=== PATIENT | female | born 1965 | race Caucasian/White ===

== ENCOUNTER 2016-08-05 15:39 | Inpatient (IN) | payer MEDICARE, OTHER ==
[2016-08-05] MEDS ORDERED: ONDANSETRON 4 MG/2 ML VIAL IVP STA (16:17)
[2016-08-05] MEDS ORDERED: SODIUM CHLORIDE 0.9% 1,000 ML IV STA (16:17)
[2016-08-05] MEDS ORDERED: FAMOTIDINE 20 MG/2 ML VIAL IV STA (16:17)
--- NOTE | 2016-08-05 16:23 | ED ---
General Adult HPI - General Chief complaint: Nausea/Vomiting/Diarrhea Stated complaint: Nausea Time Seen by Provider: 08/05/16 15:46 Source: EMS Mode of arrival: EMS Limitations: no limitations - History of Present Illness Initial comments: Patient is a 51-year-old female with history of CVA/TIA, seizure disorder, thyroid disorder, multiple sclerosis on immunosuppressive agents, COPD presenting with nausea, vomiting, diarrhea. Patient states symptoms started on Friday. Patient denies sick contacts, suspicious food, recent travel. Patient states Friday she started B12 injections. Patient states in the last 24 hours she vomited 9 times. She describes the vomit as green/yellow. Patient states she's had 9 episodes of loose stool last 24 hours. Patient does admit to decreased urination. Patient denies fever, chills, chest pain, shortness breath , abdominal pain. - Related Data Home Medications Medication Instructions Recorded Confirmed Cyclobenzaprine [Flexeril] 10 mg PO TID 03/07/14 08/05/16 Propranolol HCl [Inderal LA] 160 mg PO HS 03/07/14 08/05/16 Tamsulosin HCl [Flomax] 0.4 mg PO HS 03/07/14 08/05/16 Topiramate [Topamax] 400 mg PO HS 03/07/14 08/05/16 Aspirin 162 mg PO DAILY 01/09/15 08/05/16 Dimethyl Fumarate [Tecfidera] 240 mg PO BID 04/23/15 08/05/16 Lubiprostone [Amitiza] 8 mcg PO BID 06/10/15 08/05/16 Zolpidem [Ambien] 10 mg PO HS 06/10/15 08/05/16 Albuterol Nebulized [Ventolin 2.5 mg INHALATION RT-QID 04/22/16 08/05/16 Nebulized] Acetaminophen-Codeine 300-30mg 2 tab PO HS 07/02/16 08/05/16 [Tylenol w/codeine #3] Lacosamide [Vimpat] 150 mg PO BID 07/02/16 08/05/16 Levothyroxine Sodium [Synthroid] 100 mcg PO DAILY 07/02/16 08/05/16 Cyanocobalamin [Vitamin B-12 1,000 mcg SQ Q7D 01/23/17 01/23/17 Injection] Oxybutynin Chloride [Ditropan] 5 mg PO BID 08/05/16 08/05/16 oxyCODONE-APAP 10-325MG [Percocet 1.5 - 2 tab PO Q6HR PRN 08/05/16 08/05/16 10-325 mg] Allergies Allergy/AdvReac Type Severity Reaction Status Date / Time guaifenesin [From Entex LA] Allergy Anaphylaxis Verified 08/05/16 16:14 phenylephrine HCl Allergy Anaphylaxis Verified 08/05/16 16:14 [From Entex LA] phenylpropanolamine HCl Allergy Anaphylaxis Verified 08/05/16 16:14 [From Entex LA] Sulfa (Sulfonamide Allergy Anaphylaxis Verified 08/05/16 16:14 Antibiotics) tuberculin, purified protein Allergy Anaphylaxis Verified 08/05/16 16:14 deriva [Tuberculin,Purif.Prot.Deriv.] pseudoephedrine HCl AdvReac Swelling Verified 08/05/16 16:14 [From Mucinex D] Review of Systems ROS Statement: Those systems with pertinent positive or pertinent negative responses have been documented in the HPI. Constitutional: No fever and no chills. HENT: No congestion, no rhinorrhea and no sore throat. Eyes: No discharge and no redness. Respiratory: No cough and no shortness of breath. Cardiovascular: No chest pain and no palpitations. Gastrointestinal: Positive for nausea/vomiting/diarrhea. No abdominal pain. Genitourinary: No dysuria and no hematuria. Musculoskeletal: No back pain and no arthralgias. Skin: No pallor and no rash. Neurological: No dizziness and No headaches. ROS Other: All systems not noted in ROS Statement are negative. Past Medical History Past Medical History: Cancer, COPD, CVA/TIA, Hyperlipidemia, Myocardial Infarction ([place]), Neurologic Disorder, Seizure Disorder, Thyroid Disorder Additional Past Medical History / Comment(s): Multiple Sclerosis - HAS SUPRAPUBIC CATH. IN W/C. 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 LAST SEIZURE 2015. PVD. Migraines. 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 CERVICAL CA 1997, HAD SURG, CHEMO. RT BREAST CA 2003- LUMPECTOMY ONLY Last Myocardial Infarction Date:: 2004 History of Any Multi-Drug Resistant Organisms: MRSA Date of last positivie culture/infection: 06/14/15 MDRO Source:: sputum Past Surgical History: Cholecystectomy, Hysterectomy, Tonsillectomy Additional Past Surgical History / Comment(s): cardiac cath x 2; sinus surgery FOR DEVIATED SEPTUM; Rt breast lumpectomy; Rt knee surgery x 4 ARTHROSCOPIES AND ACL RECONSTRUCTION HAS METAL IN KNEE; LAPAROSCOPY, EXC ADHESIONS. Suprapubic Cath. Past Anesthesia/Blood Transfusion Reactions: No Reported Reaction Additional Past Anesthesia/Blood Transfusion Reaction / Comment(s): CLAUSTROPHOBIA Past Psychological History: No Psychological Hx Reported Smoking Status: Former smoker Past Alcohol Use History: None Reported Additional Past Alcohol Use History / Comment(s): Quit approx 1992, started smoking at age 11. Past Drug Use History: Marijuana Additional Drug Use History / Comment(s): HAS MEDICAL CARD, SELDOM USE. - Past Family History Father Family Medical History: Diabetes Mellitus, Myocardial Infarction ([place]), Osteoarthritis (OA) Additional Family Medical History / Comment(s): OPEN HEART SX Mother Family Medical History: Myocardial Infarction ([place]) Additional Family Medical History / Comment(s): LAST YEAR IN HER SLEEP([place]) General Exam - General Exam Comments Initial Comments: Constitutional: Patient appears well-developed and well-nourished. No distress. Head: Normocephalic and atraumatic. Eyes: Conjunctivae and EOM are normal. Right eye exhibits no discharge. Left eye exhibits no discharge. No scleral icterus. Neck: Normal range of motion. Neck supple. Cardiovascular: Normal rate and regular rhythm. No murmur heard. Pulmonary/Chest: Effort normal and breath sounds normal. No respiratory distress. No wheezes. Abdominal: Soft. No distension. There is no tenderness. There is no rebound and no guarding. Suprapubic catheter placed. Musculoskeletal: Patient is moving bilateral upper extremities weakness of the lower extremities from MS is present. Neurological: Patient alert and oriented to person, place, and time. Skin: Skin is warm and dry. Not diaphoretic. Nursing notes and vitals reviewed. Limitations: no limitations Course Vital Signs 08/05/16 15:43 Temperature 97.5 F L Pulse Rate 89 Respiratory 16 Rate Blood Pressure 102/59 O2 Sat by Pulse 96 Oximetry - Reevaluation(s) Reevaluation #1: 08/05/16 19:30 Patient feeling better no further vomiting but still nauseous. Patient complaining of her chronic back pain requesting her [place] 10 mg. Medical Decision Making - Medical Decision Making Patient's a 51-year-old female with past history of multiple sclerosis on immunosuppressants presenting with 4 days of nausea vomiting diarrhea. Temperature 97.5F orally. Patient is not tachycardic. Blood pressure is 102/ 59. With a map of 73. Laboratory work showed a WBC of 1.4. AST was 917, ALT 601, alk phos 276, UA concerning for infection with nitrites positive, moderate leukocytes, urine WBCs 25. Patient was started on Rocephin and urine culture sent. Patient was given 1 L normal saline, Zofran, Pepcid. Patient was resting comfortably in bed. Course of stay improved. Denies pain. Discussed physical exam and diagnostic tests with patient. Questions answered and patient is agreeable to staying in the hospital. Discussed H&P and pertinent diagnostic tests with admitting physician who agrees with plan and accepts admission of patient. - Lab Data Result diagrams: 08/05/16 16:45 08/05/16 16:45 Lab Results 08/05/16 08/05/16 08/05/16 Range/Units 16:45 16:45 16:45 WBC 1.4 L* (3.8-10.6) k/uL RBC 4.59 (3.80-5.40) m/uL Hgb 13.4 (11.4-16.0) gm/dL Hct 41.2 (34.0-46.0) % MCV 89.7 (80.0-100.0) fL MCH 29.3 (25.0-35.0) pg MCHC 32.6 (31.0-37.0) g/dL RDW 13.5 (11.5-15.5) % Plt Count 144 L (150-450) k/uL Neutrophils % 71 % Lymphocytes % 11 % Monocytes % 10 % Eosinophils % 2 % Basophils % 2 % Neutrophils # 1.0 L (1.3-7.7) k/uL Lymphocytes # 0.2 L (1.0-4.8) k/uL Monocytes # 0.1 (0-1.0) k/uL Eosinophils # 0.0 (0-0.7) k/uL Basophils # 0.0 (0-0.2) k/uL Sodium 142 (137-145) mmol/L Potassium 3.5 (3.5-5.1) mmol/L Chloride 108 H (98-107) mmol/L Carbon Dioxide 22 (22-30) mmol/L Anion Gap 12 mmol/L BUN 9 (7-17) mg/dL Creatinine 0.64 (0.52-1.04) mg/dL Est GFR (MDRD) Af Amer >60 (>60 ml/min/1.73 sqM) Est GFR (MDRD) Non-Af >60 (>60 ml/min/1.73 sqM) Glucose 86 (74-99) mg/dL Calcium 8.6 (8.4-10.2) mg/dL Magnesium 1.6 (1.6-2.3) mg/dL Total Bilirubin 0.5 (0.2-1.3) mg/dL AST 917 H (14-36) U/L ALT 601 H (9-52) U/L Alkaline Phosphatase 276 H (38-126) U/L Total Protein 6.7 (6.3-8.2) g/dL Albumin 3.7 (3.5-5.0) g/dL Lipase 100 (23-300) U/L Urine Color Yellow Urine Appearance Turbid H (Clear) Urine pH 7.5 (5.0-8.0) Ur Specific [place] 1.013 (1.001-1.035) Urine Protein 1+ H (Negative) Urine Glucose (UA) Negative (Negative) Urine Ketones Negative (Negative) Urine Blood Trace H (Negative) Urine Nitrate Positive H (Negative) Urine Bilirubin Negative (Negative) Urine Urobilinogen <2.0 (<2.0) mg/dL Ur Leukocyte Esterase Moderate H (Negative) Urine WBC 25 H (0-5) /hpf Amorphous Sediment Few H (None) /hpf Urine Mucus Many H (None) /hpf Disposition Clinical Impression: Nausea vomiting and diarrhea, Urinary tract infection, History of immunosuppressive therapy Disposition: ADMITTED IP TO THIS [facility] Condition: Good Decision to Admit Reason: Admit from EC
[2016-08-05 17:01] LABS: Basophils % (A) 2 %; CH 29.6; CHCM 33.2; Eosinophils % (A) 2 %; HCT 41.2 % (34.0-46.0); HDW 2.67; HGB 13.4 gm/dL (11.4-16.0); Luc # (Auto) 0.05; Luc % (Auto) 4; Lymphocytes # (A) 0.2 k/uL (1.0-4.8); Lymphocytes % (A) 11 %; MCH 29.3 pg (25.0-35.0); MCHC 32.6 g/dL (31.0-37.0); MCV 89.7 fL (80.0-100.0); Mean Platelet Volume 7.8; Monocytes # (A) 0.1 k/uL (0-1.0); Monocytes % (A) 10 %; Neutrophils % (A) 71 %; RBC 4.59 m/uL (3.80-5.40); RDW 13.5 % (11.5-15.5); WBC (Perox) 1.34
[2016-08-05 17:07] LABS: Amorphous Sediment,Urine Few /hpf; Appearance,Urine Turbid (Clear); Bilirubin,Urine Negative (Negative); Glucose,Urine (UA) Negative (Negative); Ketones,Urine Negative (Negative); Leukocyte Esterase,Urine Moderate (Negative); Mucus,Urine Many /hpf; Nitrite,Urine Positive (Negative); PH, Urine 7.5 (5.0-8.0); Particle Count 139212; Protein,Urine 1+ (Negative); Specific Gravity,Urine 1.013 (1.001-1.035); UA Billing (MACRO vs. MICRO) MICRO; Urobilinogen,Urine <2.0 mg/dL (<2.0); WBC,Urine 25 /hpf (0-5)
[2016-08-05 17:08] LABS: ALT 601 U/L (9-52); Alkaline Phosphatase 276 U/L (38-126); Anion Gap 12 mmol/L; Blood Urea Nitrogen 9 mg/dL (7-17); Calcium 8.6 mg/dL (8.4-10.2); Carbon Dioxide 22 mmol/L (22-30); Chloride 108 mmol/L (98-107); Glucose 86 mg/dL (74-99); Magnesium 1.6 mg/dL (1.6-2.3); Non-African American GFR(MDRD) >60 (>60 ml/min/1.73 sqM); Potassium 3.5 mmol/L (3.5-5.1); Sodium 142 mmol/L (137-145); Total Bilirubin 0.5 mg/dL (0.2-1.3); Total Protein 6.7 g/dL (6.3-8.2)
[2016-08-05 17:13] LABS: WBC 1.4 k/uL (3.8-10.6)
[2016-08-05 17:14] LABS: AST 917 U/L (14-36)
[2016-08-05] MEDS ORDERED: HYDROcodone/APAP 10-325MG 1 EACH TAB PO ONE (19:31)
[2016-08-05] MEDS ORDERED: SODIUM CHLORIDE 0.9% 1,000 ML IV ONE (19:35)
[2016-08-05] MEDS ORDERED: ONDANSETRON 4 MG/2 ML VIAL IVP PRN (19:35)
[2016-08-05] MEDS ORDERED: NALOXONE 0.4 MG/ML 1 ML VIAL IV PRN (19:35)
[2016-08-05 21:44] VITALS: BMI 32.5
[2016-08-05] MEDS: OXYBUTYNIN CHLORIDE 5 MG TAB PO SCH (23:42)
[2016-08-05] MEDS: CYCLOBENZAPRINE 10 MG TAB PO SCH (23:42)
[2016-08-05] MEDS: LACOSAMIDE 150 MG TABLET PO SCH (23:42)
[2016-08-05] MEDS: PROPRANOLOL LA 80 MG CAP.SA.24H PO SCH (23:43)
[2016-08-05] MEDS: TAMSULOSIN 0.4 MG CAP.ER.24H PO SCH (23:43)
[2016-08-05] MEDS: ZOLPIDEM 10 MG TAB PO SCH (23:45)
[2016-08-05] MEDS: HYDROcodone/APAP 10-325MG 1 EACH TAB PO SCH (23:51)
[2016-08-06] MEDS ORDERED: TOPIRAMATE 100 MG TAB PO ONE (00:30)
[2016-08-06] MEDS: PROPRANOLOL LA 80 MG CAP.SA.24H PO SCH ×2 (01:26→21:31)
[2016-08-06] MEDS: LEVOTHYROXINE 100 MCG TAB PO SCH (06:19)
[2016-08-06] MEDS: HYDROcodone/APAP 10-325MG 1 EACH TAB PO SCH ×4 (06:19→23:52)
[2016-08-06] MEDS: ASPIRIN 81 MG CHEW PO SCH (08:01)
[2016-08-06] MEDS: CYCLOBENZAPRINE 10 MG TAB PO SCH ×3 (08:02→21:33)
[2016-08-06] MEDS: OXYBUTYNIN CHLORIDE 5 MG TAB PO SCH ×2 (08:02→21:31)
[2016-08-06] MEDS: LACOSAMIDE 150 MG TABLET PO SCH ×2 (08:02→21:30)
[2016-08-06] MEDS: ALBUTEROL NEBULIZED 2.5 MG/3 ML INHALATION SCH ×4 (08:20→19:49)
[2016-08-06] MEDS ORDERED: NON-FORMULARY DRUG (Dimethyl Fumarate [Tecfidera] 240 MG) PO SCH (09:00)
[2016-08-06 09:35] LABS: Basophils % (A) 2 %; CH 29.8; CHCM 33.2; Eosinophils # (A) 0.1 k/uL (0-0.7); Eosinophils % (A) 5 %; HDW 2.72; HGB 11.9 gm/dL (11.4-16.0); Luc # (Auto) 0.04; Luc % (Auto) 4; Lymphocytes # (A) 0.2 k/uL (1.0-4.8); Lymphocytes % (A) 17 %; MCH 29.1 pg (25.0-35.0); MCHC 32.3 g/dL (31.0-37.0); MCV 90.1 fL (80.0-100.0); Mean Platelet Volume 8.1; Monocytes # (A) 0.1 k/uL (0-1.0); Monocytes % (A) 14 %; Neutrophils # (A) 0.6 k/uL (1.3-7.7); Neutrophils % (A) 59 %; RDW 13.5 % (11.5-15.5); WBC (Perox) 1.16
[2016-08-06 09:49] LABS: ALT 332 U/L (9-52); AST 237 U/L (14-36); Alkaline Phosphatase 195 U/L (38-126); Anion Gap 10 mmol/L; Blood Urea Nitrogen 5 mg/dL (7-17); Calcium 8.2 mg/dL (8.4-10.2); Carbon Dioxide 21 mmol/L (22-30); Chloride 115 mmol/L (98-107); Glucose 99 mg/dL (74-99); Non-African American GFR(MDRD) >60 (>60 ml/min/1.73 sqM); Potassium 3.1 mmol/L (3.5-5.1); Sodium 146 mmol/L (137-145); Total Bilirubin 0.3 mg/dL (0.2-1.3); Total Protein 5.8 g/dL (6.3-8.2)
[2016-08-06] MEDS ORDERED: BUTALB/APAP/CAFF 50-325-40MG TAB PO PRN (10:45)
[2016-08-06] MEDS ORDERED: Potassium Replacement Protocol 1 EACH MISC MISCELLANE PRN (11:04)
[2016-08-06] MEDS ORDERED: Magnesium Replacement Protocol 1 EACH MISC MISCELLANE PRN (11:05)
[2016-08-06] MEDS: SODIUM CHLORIDE 0.9% 1,000 ML IV SCH ×2 (11:56→23:55)
[2016-08-06] MEDS: MAGNESIUM SULFATE-D5W PMX 1 GM in DEXTROSE/WATER 1 100ML.BAG IVPB SCH ×2 (12:28→14:30)
[2016-08-06] MEDS: FAMOTIDINE 20 MG TAB PO SCH (12:28)
[2016-08-06] MEDS: POTASSIUM CHLORIDE ER 20 MEQ TAB.ER PO SCH ×2 (12:28→14:31)
[2016-08-06] MEDS: BUTALB/APAP/CAFF 50-325-40MG TAB PO PRN (12:43)
[2016-08-06] MEDS: Lubiprostone [Amitiza] 8 MCG PO SCH ×2 (14:30→21:30)
--- NOTE | 2016-08-06 14:51 | P.HPIM ---
History of Present Illness H&P Date: 08/06/16 Chief Complaint: Nausea, vomiting, and diarrhea Patient is a 51-year-old female, patient of Dr. Bowers in the outpatient setting, with medical history significant for CVA with left-sided paraplegia, fibromyalgia, hyperlipidemia, coronary artery disease, myocardial infarction in 2004, seizure disorder, hypothyroidism, multiple sclerosis, cervical cancer, right breast cancer, migraines, peripheral vascular disease, pneumonia, urinary tract infections, and chronic indwelling suprapubic catheter for neurogenic bladder. Patient presented to the emergency department for symptoms of nausea, vomiting, and diarrhea that started on Friday. No history of fevers, chills, chest pain, shortness of breath, abdominal pain. No history of hematemesis, melena, or hematochezia. Patient states she was started on vitamin B12 injections last Friday. Admission vitals unremarkable. Admission WBC 1.4, platelet count 144, chloride 108, AST 917, ALT 601, alkaline phosphatase 276. Urinalysis 1+ protein, trace blood, positive nitrate, moderate leukocyte esterase, 25 WBC. Patient was given 1 L of IV fluids and started on IV ceftriaxone. Urine cultures obtained. Upon examination, patient is feeling better. No further vomiting or diarrhea since admission. Patient complains of headache and back pain. Denies chills, fevers, shortness of breath, chest pain, or abdominal pain. Patient is tolerating a clear liquid diet. A.m. labs WBC 1, platelet count 121, sodium 146 , potassium 3.1, chloride 1:15, carbon dioxide 21, AST 237, ALT 332, alkaline phosphatase 195. Urine culture pending. Blood pressure stable. Past Medical History Past Medical History: Cancer, COPD, CVA/TIA, Hyperlipidemia, Myocardial Infarction ([place]), Neurologic Disorder, Seizure Disorder, Thyroid Disorder Additional Past Medical History / Comment(s): Multiple Sclerosis - HAS SUPRAPUBIC CATH. IN W/C. 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 LAST SEIZURE 2015. PVD. Migraines. 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 CERVICAL CA 1997, HAD SURG, CHEMO. RT BREAST CA 2003- LUMPECTOMY ONLY Last Myocardial Infarction Date:: 2004 History of Any Multi-Drug Resistant Organisms: MRSA Date of last positivie culture/infection: 12/02/15 MDRO Source:: sputum Past Surgical History: Cholecystectomy, Hysterectomy, Tonsillectomy Additional Past Surgical History / Comment(s): cardiac cath x 2; sinus surgery FOR DEVIATED SEPTUM; Rt breast lumpectomy; Rt knee surgery x 4 ARTHROSCOPIES AND ACL RECONSTRUCTION HAS METAL IN KNEE; LAPAROSCOPY, EXC ADHESIONS. Suprapubic Cath. Past Anesthesia/Blood Transfusion Reactions: No Reported Reaction Additional Past Anesthesia/Blood Transfusion Reaction / Comment(s): CLAUSTROPHOBIA Past Psychological History: No Psychological Hx Reported Smoking Status: Former smoker Past Alcohol Use History: None Reported Additional Past Alcohol Use History / Comment(s): Quit approx 1992, started smoking at age 11. Past Drug Use History: Marijuana Additional Drug Use History / Comment(s): HAS MEDICAL CARD, Doesn't USE. - Past Family History Father Family Medical History: Diabetes Mellitus, Myocardial Infarction ([place]), Osteoarthritis ([place]) Additional Family Medical History / Comment(s): OPEN HEART SX Mother Family Medical History: Myocardial Infarction ([place]) Additional Family Medical History / Comment(s): LAST YEAR IN HER SLEEP([place]) Medications and Allergies Home Medications Medication Instructions Recorded Confirmed Type Cyclobenzaprine [Flexeril] 10 mg PO TID 03/07/14 08/05/16 History Propranolol HCl [Inderal LA] 160 mg PO HS 03/07/14 08/05/16 History Tamsulosin HCl [Flomax] 0.4 mg PO HS 03/07/14 08/05/16 History Topiramate [Topamax] 400 mg PO HS 03/07/14 08/05/16 History Aspirin 162 mg PO DAILY 01/09/15 08/05/16 History Dimethyl Fumarate [Tecfidera] 240 mg PO BID 04/23/15 08/05/16 History Lubiprostone [Amitiza] 8 mcg PO BID 06/10/15 08/05/16 History Zolpidem [Ambien] 10 mg PO HS 06/10/15 08/05/16 History Albuterol Nebulized [Ventolin 2.5 mg INHALATION RT-QID 04/22/16 08/05/16 History Nebulized] Acetaminophen-Codeine 300-30mg 2 tab PO HS 07/02/16 08/05/16 History [Tylenol w/codeine #3] Lacosamide [Vimpat] 150 mg PO BID 07/02/16 08/05/16 History Levothyroxine Sodium [Synthroid] 100 mcg PO DAILY 07/02/16 08/05/16 History Cyanocobalamin [Vitamin B-12 1,000 mcg SQ DAILY 08/05/16 08/05/16 History Injection] Oxybutynin Chloride [Ditropan] 10 mg PO BID 08/05/16 08/05/16 History oxyCODONE-APAP 10-325MG [Percocet 1.5 - 2 tab PO Q6HR PRN 08/05/16 08/05/16 History 10-325 mg] Allergies Allergy/AdvReac Type Severity Reaction Status Date / Time guaifenesin [From Entex LA] Allergy Anaphylaxis Verified 08/05/16 16:14 phenylephrine HCl Allergy Anaphylaxis Verified 08/05/16 16:14 [From Entex LA] phenylpropanolamine HCl Allergy Anaphylaxis Verified 08/05/16 16:14 [From Entex LA] Sulfa (Sulfonamide Allergy Anaphylaxis Verified 08/05/16 16:14 Antibiotics) tuberculin, purified protein Allergy Anaphylaxis Verified 08/05/16 16:14 deriva [Tuberculin,Purif.Prot.Deriv.] pseudoephedrine HCl AdvReac Swelling Verified 08/05/16 16:14 [From Mucinex D] Physical Exam GENERAL: Pt awake and alert, well-appearing, well-nourished, and in no acute distress. HEAD: Atraumatic, normocephalic. EYES: Pupils equal, round, and reactive to light, extraocular movements intact, sclera anicteric, conjunctiva are normal. ENT: Oropharynx clear without exudates. Moist mucous membranes. NECK:Supple without lymphadenopathy or JVD. LUNGS: Breath sounds clear to auscultation posteriorly. No wheezes, rales, or rhonchi. HEART: Heart S1, S2, no S3 or S4. Regular rate and rhythm. No murmurs, rubs or gallops. ABDOMEN: Soft, nontender, nondistended, normoactive bowel sounds. No guarding, no rebound. No masses or organomegaly appreciated. Suprapubic catheter draining cloudy urine EXTREMITIES: 2+ peripheral pulses. No edema. No calf tenderness. Patient is moving bilateral upper extremities. Paralysis to left lower extremity. Right lower extremity weak. NEUROLOGICAL: Pt oriented x 3. Cranial nerves II through XII grossly intact. Strength and sensation grossly intact. PSYCH: Normal mood, normal affect. SKIN: Warm, dry, intact. Normal turgor. No rashes or lesions. Results CBC & Chem 7: 08/06/16 09:15 08/06/16 09:15 Thrombosis Risk Factor Assmnt - DVT/VTE Prophylaxis DVT/VTE Prophylaxis: Mechanical Prophylaxis ordered - Choose All That Apply Any of the Below Risk Factors Present?: Yes Each Factor Represents 1 point: Age 41-60 years, Medical pt on bed rest, Obesity (BMI >25) Other Risk Factors: Yes Each Risk Factor Represents 2 Points: Patient confined to bed Thrombosis Risk Factor Assessment Total Risk Factor Score: 5 Thrombosis Risk Factor Assessment Level: High Risk Assessment and Plan Plan: Impression and plan: 1. Urinary tract infection in a patient with permanent suprapubic catheter. Continue IV ceftriaxone. Await finalization of urine culture. Continue IV hydration. Continue supportive treatment and pain management. 2. Leukopenia. WBC 1.4. 3. Thrombocytopenia. Platelet count 121 from 144 on admission. 4. Hyperchloremic metabolic acidosis secondary to IV fluids. Will decrease 0.9 normal saline to 75 mL an hour. 5. Gastroenteritis, present on admission, improved. We'll increase diet to full liquids. Check stool for C. diff, obtain stool culture, obtain WBC stool. 6. Hypokalemia. Potassium 3.1. Replace potassium per protocol. 7. Elevated transaminases, improved. AST 237 from 917 yesterday. ALT 332 from 601 yesterday. 8. Elevated alkaline phosphatase, improved. Alkaline phosphatase 195 from 276 yesterday. 9. History of COPD. Continue albuterol nebulized updrafts. 10. Advance multiple sclerosis. 11. Chronic neurogenic bladder secondary to MS. Continue Flomax. Continue oxybutynin. 12. History of fibromyalgia. Continue [place]. 13. History of generalized seizures. Continue Vimpat. 14. History of hypothyroidism. Continue levothyroxin. 15. History of peripheral vascular disease. 16. History of CVA with left-sided hemiplegia. Consult physical therapy. 17. History of hyperlipidemia. 18. History of migraines. Will order Fioricet. Continue Topamax. Continue propanolol. 19. History of urinary tract infection due to chronic Laureano catheter related to Pseudomonas. 20. History of remote nicotine dependence. 21. History of marijuana use. Patient has medical card. 22. GI prophylaxis. Continue Pepcid. 23. DVT prophylaxis. Continue pneumatic compression sleeves to bilateral lower extremities. 24. Repeat CBC and BMP in a.m. The above impression and plan have been discussed and directed by Dr. Delgado. Vaishali TIM acting as scribe for Dr. Delgado.
[2016-08-06] MEDS: TECFIDERA 240 MG PO SCH (21:30)
[2016-08-06] MEDS: TAMSULOSIN 0.4 MG CAP.ER.24H PO SCH (21:31)
[2016-08-06] MEDS: TOPIRAMATE 100 MG TAB PO SCH (21:32)
[2016-08-06] MEDS: ZOLPIDEM 10 MG TAB PO SCH (21:39)
[2016-08-07] MEDS: BUTALB/APAP/CAFF 50-325-40MG TAB PO PRN (03:29)
[2016-08-07] MEDS: HYDROcodone/APAP 10-325MG 1 EACH TAB PO SCH ×4 (06:03→23:44)
[2016-08-07] MEDS: LEVOTHYROXINE 100 MCG TAB PO SCH (06:03)
[2016-08-07] MEDS: ALBUTEROL NEBULIZED 2.5 MG/3 ML INHALATION SCH ×4 (09:10→20:04)
[2016-08-07 09:32] LABS: Basophils % (A) 1 %; CH 29.6; CHCM 32.8; Eosinophils # (A) 0.1 k/uL (0-0.7); Eosinophils % (A) 3 %; HCT 40.7 % (34.0-46.0); HDW 2.74; Luc # (Auto) 0.08; Luc % (Auto) 2; Lymphocytes # (A) 0.3 k/uL (1.0-4.8); Lymphocytes % (A) 7 %; MCH 29.1 pg (25.0-35.0); Mean Platelet Volume 8.7; Monocytes # (A) 0.2 k/uL (0-1.0); Monocytes % (A) 7 %; Neutrophils # (A) 2.9 k/uL (1.3-7.7); Neutrophils % (A) 80 %; RBC 4.47 m/uL (3.80-5.40); RDW 13.5 % (11.5-15.5); WBC 3.6 k/uL (3.8-10.6); WBC (Perox) 3.69
[2016-08-07 09:37] LABS: Anion Gap 13 mmol/L; Blood Urea Nitrogen 5 mg/dL (7-17); Calcium 8.9 mg/dL (8.4-10.2); Carbon Dioxide 19 mmol/L (22-30); Chloride 114 mmol/L (98-107); Glucose 83 mg/dL (74-99); Magnesium 1.8 mg/dL (1.6-2.3); Non-African American GFR(MDRD) >60 (>60 ml/min/1.73 sqM); Sodium 146 mmol/L (137-145)
[2016-08-07] MEDS: OXYBUTYNIN CHLORIDE 5 MG TAB PO SCH ×2 (10:51→21:04)
[2016-08-07] MEDS: CYCLOBENZAPRINE 10 MG TAB PO SCH ×3 (10:52→21:04)
[2016-08-07] MEDS: ASPIRIN 81 MG CHEW PO SCH (10:52)
[2016-08-07] MEDS: TECFIDERA 240 MG PO SCH ×2 (10:53→21:05)
[2016-08-07] MEDS: FAMOTIDINE 20 MG TAB PO SCH (10:53)
[2016-08-07] MEDS: LACOSAMIDE 150 MG TABLET PO SCH ×2 (10:53→21:04)
[2016-08-07] MEDS: SODIUM CHLORIDE 0.9% 1,000 ML IV SCH ×2 (10:54→15:18)
[2016-08-07] MEDS: Lubiprostone [Amitiza] 8 MCG PO SCH ×2 (10:54→21:05)
--- NOTE | 2016-08-07 12:30 | P.PN ---
Subjective Principal diagnosis: Urinary tract infection Patient is a 51-year-old female, patient of Dr. Bowers in the outpatient setting, with medical history significant for CVA with left-sided paraplegia, fibromyalgia, hyperlipidemia, coronary artery disease, myocardial infarction in 2004, seizure disorder, hypothyroidism, multiple sclerosis, cervical cancer, right breast cancer, migraines, peripheral vascular disease, pneumonia, urinary tract infections, and chronic indwelling suprapubic catheter for neurogenic bladder. Patient presented to the emergency department for symptoms of nausea, vomiting, and diarrhea that started on Friday. No history of fevers, chills, chest pain, shortness of breath, abdominal pain. No history of hematemesis, melena, or hematochezia. Patient states she was started on vitamin B12 injections last Friday. Admission vitals unremarkable. Admission WBC 1.4, platelet count 144, chloride 108, AST 917, ALT 601, alkaline phosphatase 276. Urinalysis 1+ protein, trace blood, positive nitrate, moderate leukocyte esterase, 25 WBC. Patient was given 1 L of IV fluids and started on IV ceftriaxone. Urine cultures obtained. 08/07/2016: Patient is evaluated on the medical unit. Patient is complaining of a headache and back pain. Patient states she didn't get any pain medication this morning. Patient complains of cough with yellow-green sputum. Denies chills, fevers, nausea, vomiting, shortness of breath, chest pain, or abdominal pain. Patient reports hunger. No evidence of fevers. WBC increased to 3.6. Sodium 146. Chloride 114. Carbon dioxide 19. Preliminary urine cultures with gram-negative bacilli. Objective - Vital Signs Vital signs: Vital Signs Temp 98.2 F 08/07/16 07:00 Pulse 80 08/07/16 09:19 Resp 19 08/07/16 07:00 BP 117/72 08/07/16 07:00 Pulse Ox 97 08/07/16 07:00 Intake & Output 08/06/16 08/07/16 08/07/16 18:59 06:59 18:59 Intake Total 1680 Output Total 1700 3600 Balance -1700 -1920 Intake: Intake, IV Titration 1200 Amount Sodium Chloride 0.9% 1, 1200 000 ml @ 75 mls/hr IV . [id number] [facility] Rx#:[id number] Oral 480 Output: Urine 1700 3600 Other: Voiding Method Indwelling Catheter Indwelling Catheter # Voids 1 # Bowel Movements 0 - Exam GENERAL: Pt awake and alert, well-appearing, well-nourished, and in no acute distress. HEAD: Atraumatic, normocephalic. EYES: Pupils equal, round, and reactive to light, extraocular movements intact, sclera anicteric, conjunctiva are normal. ENT: Oropharynx clear without exudates. Moist mucous membranes. NECK:Supple without lymphadenopathy or JVD. LUNGS: Breath sounds diminished to auscultation posteriorly. No wheezes, rales , or rhonchi. HEART: Heart S1, S2, no S3 or S4. Regular rate and rhythm. No murmurs, rubs or gallops. ABDOMEN: Soft, nontender, nondistended, normoactive bowel sounds. No guarding, no rebound. No masses or organomegaly appreciated. Suprapubic catheter draining cloudy urine MUSCULOSKELETAL: Vertebral tenderness to lower back. Left CVA tenderness. EXTREMITIES: 2+ peripheral pulses. No edema. No calf tenderness. Patient is moving bilateral upper extremities. Paralysis to left lower extremity. Right lower extremity weak. NEUROLOGICAL: Pt oriented x 3. Cranial nerves II through XII grossly intact. Strength and sensation grossly intact. PSYCH: Normal mood, normal affect. SKIN: Warm, dry, intact. Normal turgor. No rashes or lesions. - Labs CBC & Chem 7: 08/07/16 08:44 08/07/16 08:44 Labs: Abnormal Lab Results - Last 24 Hours (Table) 08/07/16 08/07/16 Range/Units 08:44 08:44 WBC 3.6 L (3.8-10.6) k/uL Lymphocytes # 0.3 L (1.0-4.8) k/uL Sodium 146 H (137-145) mmol/L Chloride 114 H (98-107) mmol/L Carbon Dioxide 19 L (22-30) mmol/L BUN 5 L (7-17) mg/dL Assessment and Plan Plan: Impression and plan: 1. Urinary tract infection in a patient with permanent suprapubic catheter, possible nephritis. Preliminary urine culture with gram-negative bacilli. Continue IV ceftriaxone. Continue IV hydration. Continue supportive treatment and pain management. 2. Leukopenia. WBC improved to 3.6 from 1. 3. Thrombocytopenia, present on admission, resolved. 4. Hyperchloremic metabolic acidosis secondary to IV fluids. Will decrease 0.9 normal saline to 50 mL an hour. 5. Gastroenteritis, present on admission, improved. Increase diet to heart healthy. Check stool for C. diff, obtain stool culture, obtain WBC stool. 6. Hypokalemia, present on admission, resolved. 7. Elevated transaminases, improved. Repeat liver enzymes pending. 8. Elevated alkaline phosphatase, improved. Repeat liver enzymes pending. 9. Productive cough with history of COPD. Obtain chest x-ray. Continue albuterol nebulized updrafts. 10. Advance multiple sclerosis. 11. Chronic neurogenic bladder secondary to MS. Continue Flomax. Continue oxybutynin. 12. History of fibromyalgia. Continue [place]. 13. History of generalized seizures. Continue Vimpat. 14. History of hypothyroidism. Continue levothyroxine. 15. History of peripheral vascular disease. 16. History of CVA with left-sided hemiplegia. Consult physical therapy. 17. History of hyperlipidemia. 18. History of migraines. Continue Fioricet. Continue Topamax. Continue propanolol. 19. History of urinary tract infection due to chronic Laureano catheter related to Pseudomonas. 20. History of remote nicotine dependence. 21. History of marijuana use. Patient has medical card. 22. History of pneumonia with sputum culture positive for MRSA. 22. GI prophylaxis. Continue Pepcid. 23. DVT prophylaxis. Continue pneumatic compression sleeves to bilateral lower extremities. 24. Repeat CBC and CMP in a.m. The above impression and plan have been discussed and directed by Dr. Delgado. Vaishali TIM acting as scribe for Dr. Delgado.
[2016-08-07 13:06] LABS: ALT 250 U/L (9-52); AST 89 U/L (14-36); Alkaline Phosphatase 198 U/L (38-126); Total Bilirubin 0.4 mg/dL (0.2-1.3); Total Protein 6.5 g/dL (6.3-8.2)
--- NOTE | 2016-08-07 13:07 | XR ---
EXAMINATION TYPE: XR chest 2V DATE OF EXAM: 08/07/2016 12:39 PM COMPARISON: Prior chest x-ray 24 April 2016 HISTORY: Cough and urinary tract infection TECHNIQUE: Frontal and lateral views of the chest are obtained. FINDINGS: There is no focal air space opacity, pleural effusion, or pneumothorax seen. The cardiac silhouette size is within normal limits. Port-A-Cath is present with the distal tip at the cavoatria l junction level. Surgical clips are present in the right upper quadrant. There is bronchial wall thi ckening. The osseous structures are intact. IMPRESSION: Correlate for reactive airways disease, bronchitis.
--- NOTE | 2016-08-07 14:33 | CDI ---
In responding to this query, please exercise your independent professional judgment. The [facility] Coding Staff and Clinical Documentation Specialists appreciate your assistance in clarifying documentation, maintaining compliance with coding guidelines, accurately documenting patients condition and capturing severity of illness. The fact that a question is asked does not imply that any particular answer is desired or expected. Communication forms are a method of clarifying documentation and are not made part of the Legal Health Record. Thank you in advance for your clarification. Last Revision, May 2015 Rob Gomez [address] [facility] [place] [address] Documentation Clarification Form Date: 08/07/2016 2:13:00 PM From: Vickiedaja Olvera Admit Date: 08/06/2016 12:26:00 PM Patient Name: Enid Oates Visit Number: [id number] Discharge Date: Dr. Wilfrido Delgado/Vaishali Salamanca [employer]-C A diagnosis of UTI has been documented in the H&P and progress notes . History/Risk factors: Cancer, COPD, CVA, Multiple Sclerosis, Neurologic disorder , Cervical CA Per documentation in the H&P, and progress notes this patient was admitted with an indwelling suprapubic catheter. Clinical Indicators: presenting with nausea, vomiting, diarrhea. She admits to decreased urination. Urinalysis: appearance-Turbid, Leukocyte Esterae Moderate High, Urine nitrate - Positive , WBC 25 Urine culture: Gram neg bacilli, Group D Enterococcus Lab results: WBC 1.4, 1.0, AST 917, ALT 601, Alkaline phosphatase 276, Treatment: Rocepnin IV IV Fluids Flomax PO In your professional opinion, can you please clarify the etiology of the UTI, if known, is it due to? Suprapubic catheter UTI not related to Suprapubic catheter Other condition, please specify Unable to determine If an infective organism is present, please specify cause and effect relationship if applicable. Please document in your progress notes and discharge summary in order to capture severity of illness and risk of mortality. Include clinical findings that support your diagnosis. FYI: Press F11 to launch patient chart Place X here if this finding has no clinical significance, is not applicable or if you are not able to provide any additional documentation. KAREN
[2016-08-07] MEDS: PROPRANOLOL LA 80 MG CAP.SA.24H PO SCH (21:04)
[2016-08-07] MEDS: TOPIRAMATE 100 MG TAB PO SCH (21:04)
[2016-08-07] MEDS: TAMSULOSIN 0.4 MG CAP.ER.24H PO SCH (21:04)
[2016-08-07] MEDS: ZOLPIDEM 10 MG TAB PO SCH (23:44)
[2016-08-08] MEDS: HYDROcodone/APAP 10-325MG 1 EACH TAB PO SCH (06:32)
[2016-08-08] MEDS: LEVOTHYROXINE 100 MCG TAB PO SCH (06:35)
[2016-08-08 07:44] VITALS: BP 96/57; PULSE 60; RESP 20; TEMP 97.6
[2016-08-08] MEDS: ALBUTEROL NEBULIZED 2.5 MG/3 ML INHALATION SCH ×2 (08:00→10:33)
[2016-08-08] MEDS: SODIUM CHLORIDE 0.9% 1,000 ML IV SCH (08:55)
[2016-08-08] MEDS: LACOSAMIDE 150 MG TABLET PO SCH (08:59)
[2016-08-08] MEDS: OXYBUTYNIN CHLORIDE 5 MG TAB PO SCH (08:59)
[2016-08-08] MEDS: ASPIRIN 81 MG CHEW PO SCH (08:59)
[2016-08-08] MEDS: FAMOTIDINE 20 MG TAB PO SCH (08:59)
[2016-08-08] MEDS ORDERED: NITROFURANTOIN MONOHYD/M-CRYST 100 MG CAP PO SCH (09:00)
[2016-08-08] MEDS: CYCLOBENZAPRINE 10 MG TAB PO SCH (09:02)
[2016-08-08] MEDS: Lubiprostone [Amitiza] 8 MCG PO SCH (09:03)
[2016-08-08] MEDS: TECFIDERA 240 MG PO SCH (09:03)
[2016-08-08 09:51] LABS: Basophils % (A) 1 %; CH 29.9; CHCM 33.4; Eosinophils # (A) 0.1 k/uL (0-0.7); Eosinophils % (A) 4 %; HCT 39.1 % (34.0-46.0); HDW 2.74; HGB 12.9 gm/dL (11.4-16.0); Luc # (Auto) 0.08; Luc % (Auto) 3; Lymphocytes # (A) 0.2 k/uL (1.0-4.8); Lymphocytes % (A) 8 %; MCH 29.6 pg (25.0-35.0); MCHC 32.9 g/dL (31.0-37.0); MCV 90.1 fL (80.0-100.0); Mean Platelet Volume 8.5; Monocytes # (A) 0.2 k/uL (0-1.0); Monocytes % (A) 9 %; Neutrophils # (A) 1.8 k/uL (1.3-7.7); Neutrophils % (A) 74 %; RBC 4.34 m/uL (3.80-5.40); RDW 13.5 % (11.5-15.5); WBC 2.4 k/uL (3.8-10.6)
[2016-08-08 10:04] LABS: ALT 169 U/L (9-52); AST 42 U/L (14-36); Alkaline Phosphatase 154 U/L (38-126); Anion Gap 12 mmol/L; Blood Urea Nitrogen 8 mg/dL (7-17); Calcium 8.5 mg/dL (8.4-10.2); Carbon Dioxide 21 mmol/L (22-30); Chloride 113 mmol/L (98-107); Glucose 99 mg/dL (74-99); Non-African American GFR(MDRD) >60 (>60 ml/min/1.73 sqM); Potassium 3.6 mmol/L (3.5-5.1); Sodium 146 mmol/L (137-145); Total Bilirubin 0.4 mg/dL (0.2-1.3); Total Protein 6.5 g/dL (6.3-8.2)
--- NOTE | 2016-08-08 13:36 | P.DS ---
Providers Date of admission: 08/06/16 12:26 Expected date of discharge: 08/08/16 Attending physician: Wilfrido Delgado Primary care physician: Keith [facility] Hospital Course: Patient is a 51-year-old female, patient of Dr. Bowers in the outpatient setting, with medical history significant for CVA with left-sided paraplegia, fibromyalgia, hyperlipidemia, coronary artery disease, myocardial infarction in 2004, seizure disorder, hypothyroidism, multiple sclerosis, cervical cancer, right breast cancer, migraines, peripheral vascular disease, pneumonia, urinary tract infections, and chronic indwelling suprapubic catheter for neurogenic bladder. Patient presented to the emergency department for symptoms of nausea, vomiting, and diarrhea and was found to have evidence of a urinary tract infection with urine cultures positive for Escherichia coli and Enterococcus faecalis. Patient improved with IV antibiotics, IV hydration, supportive treatment and pain management. Patient was deemed stable for discharge to home with by mouth antibiotics in the form of Macrodantin 100 mg by mouth twice a day for 10 days. Discharge diagnoses: 1. Urinary tract infection, present on admission, suspect secondary to permanent suprapubic catheter placement with urine culture positive for Escherichia coli and Enterococcus faecalis. 2. Leukopenia, improved. 3. Thrombocytopenia, present on admission, resolved. 4. Hyperchloremic metabolic acidosis suspect secondary to IV fluids. 5. Gastroenteritis, present on admission, resolved. 6. Hypokalemia, present on admission, resolved. 7. Elevated transaminases, improved. 8. Elevated alkaline phosphatase, improved. 9. Bronchitis with history of COPD. 10. Advance multiple sclerosis. 11. Chronic neurogenic bladder secondary to MS. 12. History of fibromyalgia. 13. History of generalized seizures. 14. History of hypothyroidism. 15. History of peripheral vascular disease. 16. History of CVA with left-sided hemiplegia. 17. History of hyperlipidemia. 18. History of migraines. 19. History of urinary tract infection due to chronic Laureano catheter related to Pseudomonas. 20. History of remote nicotine dependence. 21. History of marijuana use. 22. History of pneumonia with sputum culture positive for MRSA. The above impression and plan have been discussed and directed by Dr. Delgado. Vaishali TIM acting as scribe for Dr. Delgado. Pertinent Studies: Chest x-ray Patient Condition at Discharge: Good Plan - Discharge Summary New Discharge Prescriptions: Nitrofurantoin Monohyd/M-Cryst [Macrobid] 100 mg PO BID #20 cap Discharge Medication List Cyclobenzaprine [Flexeril] 10 mg PO TID 03/07/14 [History] Propranolol HCl [Inderal LA] 160 mg PO HS 03/07/14 [History] Tamsulosin HCl [Flomax] 0.4 mg PO HS 03/07/14 [History] Topiramate [Topamax] 400 mg PO HS 03/07/14 [History] Aspirin 162 mg PO DAILY 01/09/15 [History] Dimethyl Fumarate [Tecfidera] 240 mg PO BID 04/23/15 [History] Lubiprostone [Amitiza] 8 mcg PO BID 06/10/15 [History] Zolpidem [Ambien] 10 mg PO HS 06/10/15 [History] Albuterol Nebulized [Ventolin Nebulized] 2.5 mg INHALATION RT-QID 04/22/16 [ History] Acetaminophen-Codeine 300-30mg [Tylenol w/codeine #3] 2 tab PO HS 07/02/16 [ History] Lacosamide [Vimpat] 150 mg PO BID 07/02/16 [History] Levothyroxine Sodium [Synthroid] 100 mcg PO DAILY 07/02/16 [History] Cyanocobalamin [Vitamin B-12 Injection] 1,000 mcg SQ DAILY 08/05/16 [History] Oxybutynin Chloride [Ditropan] 10 mg PO BID 08/05/16 [History] oxyCODONE-APAP 10-325MG [Percocet 10-325 mg] 1.5 - 2 tab PO Q6HR PRN 08/05/16 [ History] Nitrofurantoin Monohyd/M-Cryst [Macrobid] 100 mg PO BID #20 cap 08/08/16 [Rx] Follow up Appointment(s)/Referral(s): [facility], [NON-STAFF] - Keith Bowers MD [Primary Care Provider] - 1-2 days (pt prefers to make own appointment) Patient Instructions/Handouts: Urinary Tract Infection in Women (DC) Discharge Disposition: HOME WITH HOME HEALTH SERVICES
== END 2016-08-08 12:05 | disposition home health service (06) | DRG 699 ==
LOC: EC 15:39 → 4MS4W 19:36 → OBSVTOIN 08-06 12:26 → 4MS4W 08-07 17:14
PROVIDERS: ADMIT Family Medicine; ATTEND Family Medicine
DX: T83.510A Infection and inflammatory reaction due to cystostomy catheter, initial encounter (principal); E87.2 Acidosis; E87.8 Other disorders of electrolyte and fluid balance, not elsewhere classified; D69.6 Thrombocytopenia, unspecified; I69.354 Hemiplegia and hemiparesis following cerebral infarction affecting left non-dominant side; N31.9 Neuromuscular dysfunction of bladder, unspecified; N39.0 Urinary tract infection, site not specified; G35 Multiple sclerosis; K52.9 Noninfective gastroenteritis and colitis, unspecified; E87.6 Hypokalemia; E03.9 Hypothyroidism, unspecified; E78.5 Hyperlipidemia, unspecified; I25.2 Old myocardial infarction; I25.10 Atherosclerotic heart disease of native coronary artery without angina pectoris; F12.90 Cannabis use, unspecified, uncomplicated; F40.240 Claustrophobia; G40.909 Epilepsy, unspecified, not intractable, without status epilepticus; I73.9 Peripheral vascular disease, unspecified; J44.9 Chronic obstructive pulmonary disease, unspecified; M79.7 Fibromyalgia; G43.909 Migraine, unspecified, not intractable, without status migrainosus; M54.9 Dorsalgia, unspecified; B95.2 Enterococcus as the cause of diseases classified elsewhere; Z86.14 Personal history of Methicillin resistant Staphylococcus aureus infection; Z85.3 Personal history of malignant neoplasm of breast; Z85.41 Personal history of malignant neoplasm of cervix uteri; Z87.440 Personal history of urinary (tract) infections; Z93.59 Other cystostomy status; Z87.01 Personal history of pneumonia (recurrent); Z87.891 Personal history of nicotine dependence; Z79.82 Long term (current) use of aspirin; Z79.899 Other long term (current) drug therapy; Y84.6 Urinary catheterization as the cause of abnormal reaction of the patient, or of later complication, without mention of misadventure at the time of the procedure
CPT/HCPCS: 36415; 71020; 80053; 81001; 83605; 83690; 83735; 85025; 87077; 87086; 87186; 94640; 96361; 96365; 96366; 96367; 96374; 96375; 99285

== ENCOUNTER 2016-10-19 16:34 | Emergency (ER) | payer MEDICARE, OTHER ==
[2016-10-19] MEDS ORDERED: SODIUM CHLORIDE 0.9% 1,000 ML IV STA (16:49)
--- NOTE | 2016-10-19 16:51 | ED ---
Female Urogenital HPI - General Chief complaint: Urogenital Stated complaint: Pain Around Catheter Time Seen by Provider: 10/19/16 16:46 Source: patient, RN notes reviewed Mode of arrival: ambulatory Limitations: no limitations - History of Present Illness Initial comments: 51-year-old female presents to the emergency department with a chief complaint of decreased urine output and pain to catheter site. Patient has suprapubic catheter. She says some decreased urine output. Patient also admits to history of nausea vomiting diarrhea. Patient states that she was concerned due to the continued symptoms so she thought that she should be evaluated. Patient denies any recent fever, chills, shortness of breath, chest pain, back pain, numbness or tingling, dysuria or hematuria, constipation, headaches or visual changes, or any other current symptoms. - Related Data Home Medications Medication Instructions Recorded Confirmed Cyclobenzaprine [Flexeril] 10 mg PO TID 03/07/14 10/19/16 Propranolol HCl [Inderal LA] 160 mg PO HS 03/07/14 10/19/16 Tamsulosin HCl [Flomax] 0.4 mg PO HS 03/07/14 10/19/16 Topiramate [Topamax] 400 mg PO HS 03/07/14 10/19/16 Aspirin 162 mg PO DAILY 01/09/15 10/19/16 Dimethyl Fumarate [Tecfidera] 240 mg PO BID 04/23/15 10/19/16 Lubiprostone [Amitiza] 8 mcg PO BID 06/10/15 10/19/16 Zolpidem [Ambien] 10 mg PO HS 06/10/15 10/19/16 Albuterol Nebulized [Ventolin 2.5 mg INHALATION RT-QID 04/22/16 10/19/16 Nebulized] Acetaminophen-Codeine 300-30mg 2 tab PO HS 07/02/16 10/19/16 [Tylenol w/codeine #3] Lacosamide [Vimpat] 150 mg PO BID 07/02/16 10/19/16 Levothyroxine Sodium [Synthroid] 100 mcg PO DAILY 07/02/16 10/19/16 Cyanocobalamin [Vitamin B-12 1,000 mcg SQ Q30D 08/05/16 10/19/16 Injection] Oxybutynin Chloride [Ditropan] 10 mg PO BID 08/05/16 10/19/16 oxyCODONE-APAP 10-325MG [Percocet 1.5 - 2 tab PO Q6HR PRN 08/05/16 10/19/16 10-325 mg] Temazepam [Restoril] 15 mg PO HS PRN 10/19/16 10/19/16 Previous Rx's Medication Instructions Recorded Nitrofurantoin Macrocrystal 100 mg PO BID 10 Days 10/19/16 [Macrodantin] Allergies Allergy/AdvReac Type Severity Reaction Status Date / Time guaifenesin [From Entex LA] Allergy Anaphylaxis Verified 10/19/16 16:50 phenylephrine HCl Allergy Anaphylaxis Verified 10/19/16 16:50 [From Entex LA] phenylpropanolamine HCl Allergy Anaphylaxis Verified 10/19/16 16:50 [From Entex LA] Sulfa (Sulfonamide Allergy Anaphylaxis Verified 10/19/16 16:50 Antibiotics) tuberculin, purified protein Allergy Anaphylaxis Verified 10/19/16 16:50 deriva [Tuberculin,Purif.Prot.Deriv.] pseudoephedrine HCl AdvReac Swelling Verified 10/19/16 16:50 [From Mucinex D] Review of Systems ROS Statement: Those systems with pertinent positive or pertinent negative responses have been documented in the HPI. ROS Other: All systems not noted in ROS Statement are negative. Past Medical History Past Medical History: Cancer, COPD, CVA/TIA, Hyperlipidemia, Myocardial Infarction (NM), Neurologic Disorder, Seizure Disorder, Thyroid Disorder Additional Past Medical History / Comment(s): Multiple Sclerosis - HAS SUPRAPUBIC CATH. IN W/C. 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 LAST SEIZURE 2015. PVD. Migraines. 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 CERVICAL CA 1997, HAD SURG, CHEMO. RT BREAST CA 2003- LUMPECTOMY ONLY Last Myocardial Infarction Date:: 2004 History of Any Multi-Drug Resistant Organisms: MRSA Date of last positivie culture/infection: 06/14/15 MDRO Source:: sputum Past Surgical History: Cholecystectomy, Hysterectomy, Tonsillectomy Additional Past Surgical History / Comment(s): cardiac cath x 2; sinus surgery FOR DEVIATED SEPTUM; Rt breast lumpectomy; Rt knee surgery x 4 ARTHROSCOPIES AND ACL RECONSTRUCTION HAS METAL IN KNEE; LAPAROSCOPY, EXC ADHESIONS. Suprapubic Cath. Past Anesthesia/Blood Transfusion Reactions: No Reported Reaction Additional Past Anesthesia/Blood Transfusion Reaction / Comment(s): CLAUSTROPHOBIA Past Psychological History: No Psychological Hx Reported Smoking Status: Former smoker Past Alcohol Use History: None Reported Additional Past Alcohol Use History / Comment(s): Quit approx 1992, started smoking at age 11. Past Drug Use History: Marijuana Additional Drug Use History / Comment(s): HAS MEDICAL CARD, Doesn't USE. - Past Family History Father Family Medical History: Diabetes Mellitus, Myocardial Infarction (NM), Osteoarthritis (OA) Additional Family Medical History / Comment(s): OPEN HEART SX Mother Family Medical History: Myocardial Infarction (NM) Additional Family Medical History / Comment(s): LAST YEAR IN HER SLEEP(NM) General Exam - General Exam Comments Initial Comments: General: The patient is awake and alert, in no distress, and does not appear acutely ill. Eye: Pupils are equal, round. Ears, nose, mouth and throat: There are moist mucous membranes. Neck: The neck is supple, there is no tenderness. Cardiovascular: There is a regular rate and rhythm. No murmur, rub or gallop is appreciated. Respiratory: Lungs are clear to auscultation, respirations are non-labored, breath sounds are equal. No wheezes, stridor, rales, or rhonchi. Gastrointestinal: Soft, non-distended, non-tender abdomen without masses or organomegaly noted. There is no rebound or guarding present. No CVA tenderness. Bowel sounds are unremarkable. Back: There is no tenderness to palpation in the midline. There is no obvious deformity. No rashes noted. Musculoskeletal: Normal ROM, no tenderness, There is no pedal edema. There is no calf tenderness or swelling. Sensation intact. Pulses equal bilaterally 2+. Neurological: CN II-XII intact, There are no obvious motor or sensory deficits. Coordination appears grossly intact. Speech is normal. Skin: Skin is warm and dry and no rashes or lesions are noted. Psychiatric: Cooperative, appropriate mood & affect, normal judgment. Limitations: no limitations Course Vital Signs 10/19/16 10/19/16 16:41 18:04 Temperature 97.2 F L Pulse Rate 89 73 Respiratory 16 18 Rate Blood Pressure 125/70 104/54 O2 Sat by Pulse 100 97 Oximetry Medical Decision Making - Medical Decision Making 51-year-old female presents emergency Department with a chief complaint of nausea vomiting diarrhea with pain at the catheter site. At this time patient does appear to be suffering from UTI. Patient's blood work is otherwise negative there is no fever. At this time we discussed was her heart monitor. Time for home she received Rocephin here prior discharge. We discussed follow- up and return parameters. Patient stated that she understood all her questions have been answered. She will be discharged home. - Lab Data Result diagrams: 10/19/16 18:25 10/19/16 18:25 Lab Results 10/19/16 10/19/16 10/19/16 Range/Units 17:25 18:25 18:25 WBC 3.1 L (3.8-10.6) k/uL RBC 4.86 (3.80-5.40) m/uL Hgb 14.7 (11.4-16.0) gm/dL Hct 45.1 (34.0-46.0) % MCV 92.7 (80.0-100.0) fL MCH 30.2 (25.0-35.0) pg MCHC 32.6 (31.0-37.0) g/dL RDW 13.8 (11.5-15.5) % Plt Count 151 (150-450) k/uL Neutrophils % 78 % Lymphocytes % 8 % Monocytes % 8 % Eosinophils % 2 % Basophils % 1 % Neutrophils # 2.4 (1.3-7.7) k/uL Lymphocytes # 0.3 L (1.0-4.8) k/uL Monocytes # 0.2 (0-1.0) k/uL Eosinophils # 0.1 (0-0.7) k/uL Basophils # 0.0 (0-0.2) k/uL Sodium 145 (137-145) mmol/L Potassium 4.9 (3.5-5.1) mmol/L Chloride 115 H (98-107) mmol/L Carbon Dioxide 19 L (22-30) mmol/L Anion Gap 11 mmol/L BUN 8 (7-17) mg/dL Creatinine 0.56 (0.52-1.04) mg/dL Est GFR (MDRD) Af Amer >60 (>60 ml/min/1.73 sqM) Est GFR (MDRD) Non-Af >60 (>60 ml/min/1.73 sqM) Glucose 84 (74-99) mg/dL Calcium 9.5 (8.4-10.2) mg/dL Total Bilirubin 0.6 (0.2-1.3) mg/dL AST 21 (14-36) U/L ALT 20 (9-52) U/L Alkaline Phosphatase 81 (38-126) U/L Total Protein 7.4 (6.3-8.2) g/dL Albumin 4.1 (3.5-5.0) g/dL Urine Color Yellow Urine Appearance Turbid H (Clear) Urine pH 7.5 (5.0-8.0) Ur Specific [place] 1.012 (1.001-1.035) Urine Protein Negative (Negative) Urine Glucose (UA) Negative (Negative) Urine Ketones Negative (Negative) Urine Blood Negative (Negative) Urine Nitrite Positive H (Negative) Urine Bilirubin Negative (Negative) Urine Urobilinogen <2.0 (<2.0) mg/dL Ur Leukocyte Esterase Large H (Negative) Urine WBC 4 (0-5) /hpf Amorphous Sediment Rare H (None) /hpf Urine Bacteria Occasional H (None) /hpf - Radiology Data Radiology results: report reviewed, image reviewed Disposition Clinical Impression: UTI (urinary tract infection) Disposition: HOME SELF-CARE Condition: Stable Instructions: Urinary Tract Infection in Women (ED) Additional Instructions: Please use medication as discussed. Please follow up with family doctor if symptoms have not improved over the next two days. Please return to the emergency room if your symptoms increase or worsen or for any other concerns. Prescriptions: Nitrofurantoin Macrocrystal [Macrodantin] 100 mg PO BID 10 Days Referrals: Wilfrido Delgado Jr, [Primary Care Provider] - 1-2 days Time of Disposition: 19:14
[2016-10-19 17:53] LABS: Amorphous Sediment,Urine Rare /hpf; Appearance,Urine Turbid (Clear); Bacteria,Urine Occasional /hpf; Bilirubin,Urine Negative (Negative); Glucose,Urine (UA) Negative (Negative); Ketones,Urine Negative (Negative); Leukocyte Esterase,Urine Large (Negative); Nitrite,Urine Positive (Negative); PH, Urine 7.5 (5.0-8.0); Particle Count 67962; Protein,Urine Negative (Negative); Specific Gravity,Urine 1.012 (1.001-1.035); UA Billing (MACRO vs. MICRO) MICRO; Urobilinogen,Urine <2.0 mg/dL (<2.0); WBC,Urine 4 /hpf (0-5)
[2016-10-19 18:06] VITALS: RESP 18
[2016-10-19 18:51] LABS: Basophils % (A) 1 %; CH 29.8; CHCM 32.3; Eosinophils # (A) 0.1 k/uL (0-0.7); Eosinophils % (A) 2 %; HCT 45.1 % (34.0-46.0); HDW 2.62; HGB 14.7 gm/dL (11.4-16.0); Luc % (Auto) 3; Lymphocytes # (A) 0.3 k/uL (1.0-4.8); Lymphocytes % (A) 8 %; MCH 30.2 pg (25.0-35.0); MCHC 32.6 g/dL (31.0-37.0); MCV 92.7 fL (80.0-100.0); Mean Platelet Volume 7.9; Monocytes # (A) 0.2 k/uL (0-1.0); Monocytes % (A) 8 %; Neutrophils # (A) 2.4 k/uL (1.3-7.7); Neutrophils % (A) 78 %; RBC 4.86 m/uL (3.80-5.40); RDW 13.8 % (11.5-15.5); WBC 3.1 k/uL (3.8-10.6); WBC (Perox) 3.13
[2016-10-19] MEDS ORDERED: cefTRIAXone 1,000 MG VIAL IM STA (18:58)
--- NOTE | 2016-10-19 19:01 | XR ---
EXAMINATION TYPE: XR abdomen 2V DATE OF EXAM: 10/19/2016 6:51 PM CLINICAL DATA: 51-year-old female with pain around urinary catheter. COMPARISON: 01/24/2016 FINDINGS: Lung bases are clear. Cholecystectomy clips. No evidence for free intraperitoneal air. No dilated small bowel or air-fluid levels. Scattered air and stool seen throughout the colon extendi ng distally into the rectum. Moderate stool in the right hemicolon. Query suprapubic catheter. Phleboliths within the right hemipelvis are unchanged. IMPRESSION: 1. Query suprapubic catheter. 2. Moderate stool in the right hemicolon.No evidence of bowel obstruction or free intraperitoneal air .
[2016-10-19 19:10] LABS: ALT 20 U/L (9-52); AST 21 U/L (14-36); Alkaline Phosphatase 81 U/L (38-126); Anion Gap 11 mmol/L; Blood Urea Nitrogen 8 mg/dL (7-17); Calcium 9.5 mg/dL (8.4-10.2); Carbon Dioxide 19 mmol/L (22-30); Chloride 115 mmol/L (98-107); Glucose 84 mg/dL (74-99); Non-African American GFR(MDRD) >60 (>60 ml/min/1.73 sqM); Potassium 4.9 mmol/L (3.5-5.1); Sodium 145 mmol/L (137-145); Total Bilirubin 0.6 mg/dL (0.2-1.3); Total Protein 7.4 g/dL (6.3-8.2)
[2016-10-19 19:30] VITALS: BP 117/61; PULSE 70; TEMP 97.9
== END 2016-10-19 19:44 | disposition home or self-care (01) ==
LOC: EC 16:34
DX: N39.0 Urinary tract infection, site not specified (principal); E07.9 Disorder of thyroid, unspecified; G40.909 Epilepsy, unspecified, not intractable, without status epilepticus; J44.9 Chronic obstructive pulmonary disease, unspecified; G35 Multiple sclerosis; Z88.2 Allergy status to sulfonamides; Z88.8 Allergy status to other drugs, medicaments and biological substances; Z91.09 Other allergy status, other than to drugs and biological substances; Z90.710 Acquired absence of both cervix and uterus; Z87.891 Personal history of nicotine dependence; Z79.82 Long term (current) use of aspirin; Z79.899 Other long term (current) drug therapy
CPT/HCPCS: 99283; 96372; 96360; 36415; 80053; 85025; 81001; 87086; 87077; 87186; 74020; J0696

== ENCOUNTER 2016-12-11 18:09 | Emergency (ER) | payer MEDICARE, OTHER ==
[2016-12-11 18:14] VITALS: RESP 18
--- NOTE | 2016-12-11 18:44 | ED ---
General Adult HPI - General Chief complaint: Urogenital Stated complaint: Low urine output Time Seen by Provider: 12/11/16 18:11 Source: patient, EMS, RN notes reviewed, old records reviewed Mode of arrival: EMS Limitations: no limitations - History of Present Illness Initial comments: Chief complaint and history of present illness is a 51-year-old female who is here because she's had decreased urine output. Patient reports that since yesterday afternoon she's had approximately 200 ML's in the Laureano bag. The patient is paralyzed from previous stroke that affected the left side. She has an indwelling catheter within the bladder. She has the catheter changed monthly the most recent one was changed one week ago. - Related Data Home Medications Medication Instructions Recorded Confirmed Cyclobenzaprine [Flexeril] 10 mg PO TID 03/07/14 12/11/16 Propranolol HCl [Inderal LA] 160 mg PO HS 03/07/14 12/11/16 Tamsulosin HCl [Flomax] 0.4 mg PO HS 03/07/14 12/11/16 Topiramate [Topamax] 400 mg PO HS 03/07/14 12/11/16 Aspirin 162 mg PO DAILY 01/09/15 12/11/16 Lubiprostone [Amitiza] 8 mcg PO BID 06/10/15 12/11/16 Zolpidem [Ambien] 10 mg PO HS 06/10/15 12/11/16 Albuterol Nebulized [Ventolin 2.5 mg INHALATION RT-QID 04/22/16 12/11/16 Nebulized] Acetaminophen-Codeine 300-30mg 2 tab PO HS 07/02/16 12/11/16 [Tylenol w/codeine #3] Lacosamide [Vimpat] 150 mg PO BID 07/02/16 12/11/16 Levothyroxine Sodium [Synthroid] 100 mcg PO DAILY 07/02/16 12/11/16 Cyanocobalamin [Vitamin B-12 1,000 mcg SQ Q30D 08/05/16 12/11/16 Injection] Oxybutynin Chloride [Ditropan] 10 mg PO BID 08/05/16 12/11/16 oxyCODONE-APAP 10-325MG [Percocet 1.5 - 2 tab PO Q6HR PRN 08/05/16 12/11/16 10-325 mg] Temazepam [Restoril] 15 mg PO HS PRN 10/19/16 12/11/16 Previous Rx's Medication Instructions Recorded Ciprofloxacin HCl [Cipro] 500 mg PO Q12HR #14 tablet 12/11/16 Allergies Allergy/AdvReac Type Severity Reaction Status Date / Time guaifenesin [From Entex LA] Allergy Anaphylaxis Verified 12/11/16 18:14 phenylephrine HCl Allergy Anaphylaxis Verified 12/11/16 18:14 [From Entex LA] phenylpropanolamine HCl Allergy Anaphylaxis Verified 12/11/16 18:14 [From Entex LA] Sulfa (Sulfonamide Allergy Anaphylaxis Verified 12/11/16 18:14 Antibiotics) tuberculin, purified protein Allergy Anaphylaxis Verified 12/11/16 18:14 deriva [Tuberculin,Purif.Prot.Deriv.] pseudoephedrine HCl AdvReac Swelling Verified 12/11/16 18:14 [From Mucinex D] Review of Systems ROS Statement: Those systems with pertinent positive or pertinent negative responses have been documented in the HPI. Review of systems. Patient denying any headache or visual acuity changes no chest pain or shortness of breath. She states which is retracted infections tend to feel chilled. No rashes. No nausea no vomiting. No increased pain. Mild discomfort to the right lower quadrant for well over a month. Bowel movements are by disimpaction by the patient. No change in her Spe[place]. All systems were reviewed past medical problems significant for cervical cancer and gone into the uterus. 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 Hypothyroidism . Patient is paralyzed in the left side she has regained some of her left arm movement. But weaker. He also has peripheral vascular disease migraines. The patient's surgeries include sinus surgery, cholecystectomy, hysterectomy, tonsillectomy, 2 cardiac catheterizations but no stents.. She had reconstruction of her right ACL. Family history father of leukemia mother and father have heart disease. ROS Other: All systems not noted in ROS Statement are negative. Past Medical History Past Medical History: Cancer, COPD, CVA/TIA, Hyperlipidemia, Myocardial Infarction ([place]), Neurologic Disorder, Seizure Disorder, Thyroid Disorder Additional Past Medical History / Comment(s): Multiple Sclerosis - HAS SUPRAPUBIC CATH. IN W/C. 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 LAST SEIZURE 2015. PVD. Migraines. 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 CERVICAL CA 1997, HAD SURG, CHEMO. RT BREAST CA 2003- LUMPECTOMY ONLY Last Myocardial Infarction Date:: 2004 History of Any Multi-Drug Resistant Organisms: MRSA Date of last positivie culture/infection: 06/14/15 MDRO Source:: sputum Past Surgical History: Cholecystectomy, Hysterectomy, Tonsillectomy Additional Past Surgical History / Comment(s): cardiac cath x 2; sinus surgery FOR DEVIATED SEPTUM; Rt breast lumpectomy; Rt knee surgery x 4 ARTHROSCOPIES AND ACL RECONSTRUCTION HAS METAL IN KNEE; LAPAROSCOPY, EXC ADHESIONS. Suprapubic Cath. Past Anesthesia/Blood Transfusion Reactions: No Reported Reaction Additional Past Anesthesia/Blood Transfusion Reaction / Comment(s): CLAUSTROPHOBIA Past Psychological History: No Psychological Hx Reported Smoking Status: Former smoker Past Alcohol Use History: None Reported Additional Past Alcohol Use History / Comment(s): Quit approx 1992, started smoking at age 11. Past Drug Use History: Marijuana Additional Drug Use History / Comment(s): HAS MEDICAL CARD, Doesn't USE. - Past Family History Father Family Medical History: Diabetes Mellitus, Myocardial Infarction ([place]), Osteoarthritis ([place]) Additional Family Medical History / Comment(s): OPEN HEART SX Mother Family Medical History: Myocardial Infarction ([place]) Additional Family Medical History / Comment(s): LAST YEAR IN HER SLEEP([place]) General Exam - General Exam Comments Initial Comments: General: The patient is awake and alert, complains of decreased urine output the past 24 hours only 200 ML's or in the bag. Patient's vital signs show temperature 99.2 pulse 80 respiratory rate 18 pulse ox 97% room air blood pressure 140/62 Eye: Pupils are equal, round and reactive to light, extra-ocular movements are intact ; there is normal conjunctiva bilaterally. No signs of icterus. Ears, nose, mouth and throat: There are moist mucous membranes and no oral lesions. Neck: The neck is supple, there is no tenderness . Cardiovascular: There is a regular rate and rhythm. No murmur, rub or gallop is appreciated. Respiratory: Lungs are clear to auscultation, respirations are non-labored, breath sounds are equal. No wheezes, stridor, rales, or rhonchi. Gastrointestinal: Patient has an indwelling bladder catheter. Foul-smelling urine. Mild discomfort to the right side of the abdomen but no rebound or referred pain. This discomfort in the for over a month per patient. Musculoskeletal: Neurologically the patient's paralyzed in the left side but she hasn't managed to regain some function with the left arm but weaker than the right. Neurological: History of epilepsy and MS. Strokes at that affected the left side of the body low she is able to move her left arm Skin: Skin is warm and dry and no rashes or lesions are noted. Limitations: no limitations Course Vital Signs 12/11/16 18:11 Temperature 99.2 F Pulse Rate 80 Respiratory 18 Rate Blood Pressure 140/62 O2 Sat by Pulse 97 Oximetry Medical Decision Making - Medical Decision Making Medical decision making the patient had a bladder scan which showed 200 mL is left in the bladder. At 200 was in the bag. 18-Spanish Laureano catheter was removed and a new sterile catheter replaced the same size. Draining urine. Patient's urinalysis shows positive nitrates but only 1 red no white cells. Labs show white count 3.1 hemoglobin 13.8 hematocrit of 42 with a potassium 3.8 BUN 16 creatinine 0.6 with a GFR greater than 60. Glucose 105. Patient is given pain medication for headache. Patient will be discharged home on Cipro 500 twice a day until cultures return on the urine. Patient has a history of frequent urinary tract infections and the urine and the original catheter appeared thick and proteinaceous - Lab Data Result diagrams: 12/11/16 19:14 12/11/16 19:14 Lab Results 12/11/16 12/11/16 12/11/16 Range/Units 19:14 19:14 20:30 WBC 3.1 L (3.8-10.6) k/uL RBC 4.61 (3.80-5.40) m/uL Hgb 13.8 (11.4-16.0) gm/dL Hct 42.5 (34.0-46.0) % MCV 92.1 (80.0-100.0) fL MCH 29.9 (25.0-35.0) pg MCHC 32.4 (31.0-37.0) g/dL RDW 13.5 (11.5-15.5) % Plt Count 170 (150-450) k/uL Neutrophils % 77 % Lymphocytes % 7 % Monocytes % 7 % Eosinophils % 4 % Basophils % 2 % Neutrophils # 2.4 (1.3-7.7) k/uL Lymphocytes # 0.2 L (1.0-4.8) k/uL Monocytes # 0.2 (0-1.0) k/uL Eosinophils # 0.1 (0-0.7) k/uL Basophils # 0.1 (0-0.2) k/uL Sodium 142 (137-145) mmol/L Potassium 3.8 (3.5-5.1) mmol/L Chloride 110 H (98-107) mmol/L Carbon Dioxide 24 (22-30) mmol/L Anion Gap 8 mmol/L BUN 14 (7-17) mg/dL Creatinine 0.60 (0.52-1.04) mg/dL Est GFR (MDRD) Af Amer >60 (>60 ml/min/1.73 sqM) Est GFR (MDRD) Non-Af >60 (>60 ml/min/1.73 sqM) Glucose 105 H (74-99) mg/dL Calcium 9.3 (8.4-10.2) mg/dL Total Bilirubin 0.5 (0.2-1.3) mg/dL AST 20 (14-36) U/L ALT 30 (9-52) U/L Alkaline Phosphatase 85 (38-126) U/L Total Protein 7.7 (6.3-8.2) g/dL Albumin 4.3 (3.5-5.0) g/dL Urine Color Yellow Urine Appearance Cloudy H (Clear) Urine pH 7.5 (5.0-8.0) Ur Specific [place] 1.012 (1.001-1.035) Urine Protein Negative (Negative) Urine Glucose (UA) Negative (Negative) Urine Ketones Negative (Negative) Urine Blood Negative (Negative) Urine Nitrite Positive H (Negative) Urine Bilirubin Negative (Negative) Urine Urobilinogen <2.0 (<2.0) mg/dL Ur Leukocyte Esterase Small H (Negative) Urine RBC 1 (0-5) /hpf Urine Bacteria Rare H (None) /hpf Urine Yeast (Budding) Few H (None) /hpf Disposition Clinical Impression: UTI (urinary tract infection), Mechanical complication due to cystostomy catheter Disposition: HOME SELF-CARE Condition: Fair Instructions: Urinary Tract Infection in Women (ED), How to Care for Your Suprapubic Catheter (ED) Additional Instructions: Cipro twice a day until cultures return. Follow family physician. Prescriptions: Ciprofloxacin HCl [Cipro] 500 mg PO Q12HR #14 tablet Referrals: Wilfrido Delgado Jr, DO [Primary Care Provider] - 1-2 days Time of Disposition: 21:07
[2016-12-11 19:26] LABS: Basophils # (A) 0.1 k/uL (0-0.2); Basophils % (A) 2 %; CH 30.4; CHCM 33.2; Eosinophils # (A) 0.1 k/uL (0-0.7); Eosinophils % (A) 4 %; HCT 42.5 % (34.0-46.0); HDW 2.55; HGB 13.8 gm/dL (11.4-16.0); Luc # (Auto) 0.12; Luc % (Auto) 4; Lymphocytes # (A) 0.2 k/uL (1.0-4.8); Lymphocytes % (A) 7 %; MCH 29.9 pg (25.0-35.0); MCHC 32.4 g/dL (31.0-37.0); MCV 92.1 fL (80.0-100.0); Mean Platelet Volume 7.5; Monocytes # (A) 0.2 k/uL (0-1.0); Monocytes % (A) 7 %; Neutrophils # (A) 2.4 k/uL (1.3-7.7); Neutrophils % (A) 77 %; RBC 4.61 m/uL (3.80-5.40); RDW 13.5 % (11.5-15.5); WBC 3.1 k/uL (3.8-10.6); WBC (Perox) 3.14
[2016-12-11 19:45] LABS: ALT 30 U/L (9-52); AST 20 U/L (14-36); Alkaline Phosphatase 85 U/L (38-126); Anion Gap 8 mmol/L; Blood Urea Nitrogen 14 mg/dL (7-17); Calcium 9.3 mg/dL (8.4-10.2); Carbon Dioxide 24 mmol/L (22-30); Chloride 110 mmol/L (98-107); Glucose 105 mg/dL (74-99); Non-African American GFR(MDRD) >60 (>60 ml/min/1.73 sqM); Potassium 3.8 mmol/L (3.5-5.1); Sodium 142 mmol/L (137-145); Total Bilirubin 0.5 mg/dL (0.2-1.3); Total Protein 7.7 g/dL (6.3-8.2)
[2016-12-11 20:51] LABS: Appearance,Urine Cloudy (Clear); Bacteria,Urine Rare /hpf; Bilirubin,Urine Negative (Negative); Glucose,Urine (UA) Negative (Negative); Ketones,Urine Negative (Negative); Leukocyte Esterase,Urine Small (Negative); Nitrite,Urine Positive (Negative); PH, Urine 7.5 (5.0-8.0); Particle Count 11175; Protein,Urine Negative (Negative); RBC,Urine 1 /hpf (0-5); Specific Gravity,Urine 1.012 (1.001-1.035); UA Billing (MACRO vs. MICRO) MICRO; Urobilinogen,Urine <2.0 mg/dL (<2.0)
[2016-12-11] MEDS ORDERED: HYDROmorphone 1 MG/ML 1 ML SYRINGE IVP STA (20:57)
[2016-12-11] MEDS ORDERED: CIPROFLOXACIN HCL 500 MG TAB PO STA (21:07)
[2016-12-11 21:59] VITALS: BP 119/79; PULSE 76; TEMP 98.1
== END 2016-12-11 22:25 | disposition home or self-care (01) ==
LOC: EC 18:09
DX: T83.598A Infection and inflammatory reaction due to other prosthetic device, implant and graft in urinary system, initial encounter (principal); N39.0 Urinary tract infection, site not specified; E78.5 Hyperlipidemia, unspecified; I25.2 Old myocardial infarction; G40.909 Epilepsy, unspecified, not intractable, without status epilepticus; G35 Multiple sclerosis; J44.9 Chronic obstructive pulmonary disease, unspecified; E07.9 Disorder of thyroid, unspecified; Z87.891 Personal history of nicotine dependence; Z79.82 Long term (current) use of aspirin; Z79.899 Other long term (current) drug therapy; Z79.891 Long term (current) use of opiate analgesic; Z88.8 Allergy status to other drugs, medicaments and biological substances; Z88.2 Allergy status to sulfonamides; Z85.3 Personal history of malignant neoplasm of breast; Z93.50 Unspecified cystostomy status; Y83.3 Surgical operation with formation of external stoma as the cause of abnormal reaction of the patient, or of later complication, without mention of misadventure at the time of the procedure
CPT/HCPCS: 51798; 36415; 80053; 85025; 81001; 87086; 99284; 51702; 96374; 96375; J1170; J1642

== ENCOUNTER 2017-06-13 05:31 | Emergency (ER) | payer MEDICARE, OTHER ==
[2017-06-13] MEDS ORDERED: SODIUM CHLORIDE 0.9% 1,000 ML IV STA (05:52)
[2017-06-13] MEDS ORDERED: FAMOTIDINE 20 MG/2 ML VIAL IV STA (05:52)
[2017-06-13] MEDS ORDERED: ONDANSETRON 4 MG/2 ML VIAL IVP STA (05:52)
--- NOTE | 2017-06-13 05:55 | ED ---
General Adult HPI - General Source: patient, EMS, RN notes reviewed Mode of arrival: EMS Limitations: no limitations <Huan Duran - Last Filed: 06/13/17 05:52> <Deuce Berkowitz - Last Filed: 06/13/17 08:50> - General Chief complaint: Nausea/Vomiting/Diarrhea Stated complaint: Vomiting Time Seen by Provider: 06/13/17 05:46 - History of Present Illness Initial comments: Patient is a pleasant 52-year-old female presenting to the emergency department with nausea vomiting. Onset was around 24 hours ago. Patient has vomited 6 times or so. Clear emesis. Patient has continued nausea. No fevers. Patient has mild abdominal discomfort. (Huan Duran) - Related Data Home Medications Medication Instructions Recorded Confirmed Cyclobenzaprine [Flexeril] 10 mg PO TID 03/07/14 06/13/17 Propranolol HCl [Inderal LA] 160 mg PO HS 03/07/14 06/13/17 Tamsulosin HCl [Flomax] 0.4 mg PO HS 03/07/14 06/13/17 Topiramate [Topamax] 200 mg PO HS 03/07/14 06/13/17 Aspirin 162 mg PO DAILY 01/09/15 06/13/17 Lubiprostone [Amitiza] 8 mcg PO BID 06/10/15 06/13/17 Zolpidem [Ambien] 10 mg PO HS 06/10/15 06/13/17 Albuterol Nebulized [Ventolin 2.5 mg INHALATION RT-QID 04/22/16 06/13/17 Nebulized] Lacosamide [Vimpat] 150 mg PO BID 07/02/16 06/13/17 Levothyroxine Sodium [Synthroid] 100 mcg PO DAILY 07/02/16 06/13/17 Cyanocobalamin [Vitamin B-12 1,000 mcg SQ Q30D 08/05/16 06/13/17 Injection] Oxybutynin Chloride [Ditropan] 10 mg PO BID 08/05/16 06/13/17 oxyCODONE-APAP 10-325MG [Percocet 1.5 - 2 tab PO Q6HR PRN 08/05/16 06/13/17 10-325 mg] Temazepam [Restoril] 15 mg PO HS PRN 10/19/16 06/13/17 Potassium Chloride ER [K-Dur 10] 10 meq PO DAILY 06/13/17 06/13/17 tiZANidine HCL [Zanaflex] 4 mg PO HS 06/13/17 06/13/17 Previous Rx's Medication Instructions Recorded Famotidine [Pepcid] 20 mg PO DAILY #30 tablet 06/13/17 Allergies Allergy/AdvReac Type Severity Reaction Status Date / Time guaifenesin [From Entex LA] Allergy Anaphylaxis Verified 06/13/17 08:07 phenylephrine HCl Allergy Anaphylaxis Verified 06/13/17 08:07 [From Entex LA] phenylpropanolamine HCl Allergy Anaphylaxis Verified 06/13/17 08:07 [From Entex LA] Sulfa (Sulfonamide Allergy Anaphylaxis Verified 06/13/17 08:07 Antibiotics) tuberculin, purified protein Allergy Anaphylaxis Verified 06/13/17 08:07 deriva [Tuberculin,Purif.Prot.Deriv.] pseudoephedrine HCl AdvReac Swelling Verified 06/13/17 08:07 [From Mucinex D] Review of Systems ROS Other: All systems not noted in ROS Statement are negative. Constitutional: Denies: fever Eyes: Denies: eye pain ENT: Denies: ear pain Respiratory: Denies: cough Cardiovascular: Denies: chest pain Endocrine: Denies: fatigue Gastrointestinal: Reports: abdominal pain, nausea, vomiting Genitourinary: Denies: hematuria Musculoskeletal: Reports: other (Patient had stimulator placed a few weeks ago) Skin: Denies: rash Neurological: Denies: weakness <Huan Duran - Last Filed: 06/13/17 05:52> ROS Other: All systems not noted in ROS Statement are negative. <Deuce Berkowitz - Last Filed: 06/13/17 08:50> ROS Statement: Those systems with pertinent positive or pertinent negative responses have been documented in the HPI. Past Medical History Past Medical History: Cancer, COPD, CVA/TIA, Hyperlipidemia, Myocardial Infarction ([place]), Neurologic Disorder, Seizure Disorder, Thyroid Disorder Additional Past Medical History / Comment(s): Multiple Sclerosis - HAS SUPRAPUBIC CATH. IN W/C. 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 LAST SEIZURE 2015. PVD. Migraines. 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 CERVICAL CA 1997, HAD SURG, CHEMO. RT BREAST CA 2003- LUMPECTOMY ONLY Last Myocardial Infarction Date:: 2004 History of Any Multi-Drug Resistant Organisms: MRSA Date of last positivie culture/infection: 06/14/15 MDRO Source:: sputum Past Surgical History: Cholecystectomy, Hysterectomy, Tonsillectomy Additional Past Surgical History / Comment(s): cardiac cath x 2; sinus surgery FOR DEVIATED SEPTUM; Rt breast lumpectomy; Rt knee surgery x 4 ARTHROSCOPIES AND ACL RECONSTRUCTION HAS METAL IN KNEE; LAPAROSCOPY, EXC ADHESIONS. Suprapubic Cath. back surgery Past Anesthesia/Blood Transfusion Reactions: No Reported Reaction Additional Past Anesthesia/Blood Transfusion Reaction / Comment(s): CLAUSTROPHOBIA Past Psychological History: No Psychological Hx Reported Smoking Status: Former smoker Past Alcohol Use History: None Reported Past Drug Use History: Marijuana - Past Family History Father Family Medical History: Diabetes Mellitus, Myocardial Infarction ([place]), Osteoarthritis ([place]) Additional Family Medical History / Comment(s): OPEN HEART SX Mother Family Medical History: Myocardial Infarction ([place]) Additional Family Medical History / Comment(s): LAST YEAR IN HER SLEEP([place]) <Huan Duran - Last Filed: 06/13/17 05:52> General Exam Limitations: no limitations General appearance: alert, in no apparent distress Head exam: Present: atraumatic Eye exam: Present: normal appearance, PERRL ENT exam: Present: normal oropharynx Neck exam: Present: normal inspection Respiratory exam: Present: normal lung sounds bilaterally Cardiovascular Exam: Present: regular rate, normal rhythm GI/Abdominal exam: Present: soft, tenderness (Mild tenderness lower abdomen), normal bowel sounds. Absent: distended, guarding, rebound, rigid Extremities exam: Present: normal inspection Back exam: Present: normal inspection. Absent: rash noted Neurological exam: Present: alert Psychiatric exam: Present: normal affect, normal mood Skin exam: Present: normal color <Huan Duran - Last Filed: 06/13/17 05:52> Vital Signs 06/13/17 06/13/17 06/13/17 05:39 06:25 08:20 Temperature 98.1 F Pulse Rate 67 68 66 Respiratory 16 18 18 Rate Blood Pressure 121/59 94/52 105/57 O2 Sat by Pulse 97 93 L 98 Oximetry EKG Findings - EKG Comments: EKG Findings:: Normal sinus rhythm 62. NM 138. QRS 84. QT 412. QTC 418. Left axis. Low QRS voltage. Poor R-wave progression with inverted T waves. <Huan Duran - Last Filed: 06/13/17 05:52> Medical Decision Making <Huan Duran - Last Filed: 06/13/17 05:52> - Lab Data Result diagrams: 06/13/17 06:16 06/13/17 06:16 <Deuce Berkowitz - Last Filed: 06/13/17 08:50> - Medical Decision Making Patient reevaluated after sign out, awaiting laboratory studies and computed tomography scan. Laboratory studies reveal white blood cell count 2.7, patient does have chronic leukopenia most recent 2.1. Laboratory lites within normal limits. Urinalysis is positive for nitrate, large leukocyte Estrace, and white blood cells, she does have a suprapubic catheter, and denies symptoms. CT abdomen is obtained, this shows a distended stomach, with no bowel obstruction, no free air, no signs of intra-abdominal infection. Patient is given Reglan and pain medication after initial round of Zofran. On reevaluation she is feeling much better. She has had no episodes of vomiting while in the emergency department. She is offered observation for continued symptomatic treatment, she feels she would rather go home at this time. She will return with worsening nausea vomiting or abdominal pain. (Deuce Berkowitz) - Lab Data Lab Results 06/13/17 06/13/17 06/13/17 Range/Units 06:16 06:16 06:16 WBC 2.7 L (3.8-10.6) k/uL RBC 4.28 (3.80-5.40) m/uL Hgb 13.0 (11.4-16.0) gm/dL Hct 40.4 (34.0-46.0) % MCV 94.4 (80.0-100.0) fL MCH 30.3 (25.0-35.0) pg MCHC 32.1 (31.0-37.0) g/dL RDW 14.6 (11.5-15.5) % Plt Count 239 (150-450) k/uL Neutrophils % 70 % Lymphocytes % 13 % Monocytes % 9 % Eosinophils % 5 % Basophils % 1 % Neutrophils # 1.9 (1.3-7.7) k/uL Lymphocytes # 0.3 L (1.0-4.8) k/uL Monocytes # 0.2 (0-1.0) k/uL Eosinophils # 0.1 (0-0.7) k/uL Basophils # 0.0 (0-0.2) k/uL PT 10.8 (9.0-12.0) sec INR 1.1 (<1.2) APTT 25.0 (22.0-30.0) sec Sodium 139 (137-145) mmol/L Potassium 3.6 (3.5-5.1) mmol/L Chloride 109 H (98-107) mmol/L Carbon Dioxide 18 L (22-30) mmol/L Anion Gap 12 mmol/L BUN 9 (7-17) mg/dL Creatinine 0.80 (0.52-1.04) mg/dL Est GFR (MDRD) Af Amer >60 (>60 ml/min/1.73 sqM) Est GFR (MDRD) Non-Af >60 (>60 ml/min/1.73 sqM) Glucose 117 H (74-99) mg/dL Calcium 9.1 (8.4-10.2) mg/dL Total Bilirubin 0.3 (0.2-1.3) mg/dL AST 19 (14-36) U/L ALT 19 (9-52) U/L Alkaline Phosphatase 75 (38-126) U/L Total Protein 7.1 (6.3-8.2) g/dL Albumin 3.9 (3.5-5.0) g/dL Amylase 51 (30-110) U/L Lipase 98 (23-300) U/L Urine Color Urine Appearance (Clear) Urine pH (5.0-8.0) Ur Specific [place] (1.001-1.035) Urine Protein (Negative) Urine Glucose (UA) (Negative) Urine Ketones (Negative) Urine Blood (Negative) Urine Nitrite (Negative) Urine Bilirubin (Negative) Urine Urobilinogen (<2.0) mg/dL Ur Leukocyte Esterase (Negative) Urine WBC (0-5) /hpf Calcium Oxalate Crystal (None) /hpf Urine Bacteria (None) /hpf Urine Mucus (None) /hpf 06/13/17 Range/Units 06:59 WBC (3.8-10.6) k/uL RBC (3.80-5.40) m/uL Hgb (11.4-16.0) gm/dL Hct (34.0-46.0) % MCV (80.0-100.0) fL MCH (25.0-35.0) pg MCHC (31.0-37.0) g/dL RDW (11.5-15.5) % Plt Count (150-450) k/uL Neutrophils % % Lymphocytes % % Monocytes % % Eosinophils % % Basophils % % Neutrophils # (1.3-7.7) k/uL Lymphocytes # (1.0-4.8) k/uL Monocytes # (0-1.0) k/uL Eosinophils # (0-0.7) k/uL Basophils # (0-0.2) k/uL PT (9.0-12.0) sec INR (<1.2) APTT (22.0-30.0) sec Sodium (137-145) mmol/L Potassium (3.5-5.1) mmol/L Chloride (98-107) mmol/L Carbon Dioxide (22-30) mmol/L Anion Gap mmol/L BUN (7-17) mg/dL Creatinine (0.52-1.04) mg/dL Est GFR (MDRD) Af Amer (>60 ml/min/1.73 sqM) Est GFR (MDRD) Non-Af (>60 ml/min/1.73 sqM) Glucose (74-99) mg/dL Calcium (8.4-10.2) mg/dL Total Bilirubin (0.2-1.3) mg/dL AST (14-36) U/L ALT (9-52) U/L Alkaline Phosphatase (38-126) U/L Total Protein (6.3-8.2) g/dL Albumin (3.5-5.0) g/dL Amylase (30-110) U/L Lipase (23-300) U/L Urine Color Yellow Urine Appearance Cloudy H (Clear) Urine pH 5.5 (5.0-8.0) Ur Specific [place] 1.023 (1.001-1.035) Urine Protein Trace H (Negative) Urine Glucose (UA) Negative (Negative) Urine Ketones Negative (Negative) Urine Blood Negative (Negative) Urine Nitrite Positive H (Negative) Urine Bilirubin Negative (Negative) Urine Urobilinogen <2.0 (<2.0) mg/dL Ur Leukocyte Esterase Large H (Negative) Urine WBC 7 H (0-5) /hpf Calcium Oxalate Crystal Occasional H (None) /hpf Urine Bacteria Rare H (None) /hpf Urine Mucus Rare H (None) /hpf Disposition <Huan Duran - Last Filed: 06/13/17 05:52> Time of Disposition: 08:49 <Deuce Berkowitz - Last Filed: 06/13/17 08:50> Clinical Impression: Nausea & vomiting Disposition: HOME SELF-CARE Condition: Good Instructions: Acute Nausea and Vomiting (ED) Prescriptions: Famotidine [Pepcid] 20 mg PO DAILY #30 tablet Referrals: None,Stated [Primary Care Provider] - 1-2 days
[2017-06-13 06:27] VITALS: RESP 18
[2017-06-13 06:29] LABS: Basophils % (A) 1 %; CH 30.4; CHCM 32.4; Eosinophils # (A) 0.1 k/uL (0-0.7); Eosinophils % (A) 5 %; HCT 40.4 % (34.0-46.0); HDW 2.58; Luc # (Auto) 0.06; Luc % (Auto) 2; Lymphocytes # (A) 0.3 k/uL (1.0-4.8); Lymphocytes % (A) 13 %; MCH 30.3 pg (25.0-35.0); MCHC 32.1 g/dL (31.0-37.0); MCV 94.4 fL (80.0-100.0); Monocytes # (A) 0.2 k/uL (0-1.0); Monocytes % (A) 9 %; Neutrophils # (A) 1.9 k/uL (1.3-7.7); Neutrophils % (A) 70 %; RBC 4.28 m/uL (3.80-5.40); RDW 14.6 % (11.5-15.5); WBC 2.7 k/uL (3.8-10.6); WBC (Perox) 2.72
[2017-06-13 06:42] LABS: INR 1.1 (<1.2); Prothrombin Time 10.8 sec (9.0-12.0)
[2017-06-13 06:43] LABS: ALT 19 U/L (9-52); AST 19 U/L (14-36); Alkaline Phosphatase 75 U/L (38-126); Amylase 51 U/L (30-110); Anion Gap 12 mmol/L; Blood Urea Nitrogen 9 mg/dL (7-17); Calcium 9.1 mg/dL (8.4-10.2); Carbon Dioxide 18 mmol/L (22-30); Chloride 109 mmol/L (98-107); Glucose 117 mg/dL (74-99); Non-African American GFR(MDRD) >60 (>60 ml/min/1.73 sqM); Potassium 3.6 mmol/L (3.5-5.1); Sodium 139 mmol/L (137-145); Total Bilirubin 0.3 mg/dL (0.2-1.3); Total Protein 7.1 g/dL (6.3-8.2)
[2017-06-13 07:21] LABS: Appearance,Urine Cloudy (Clear); Bacteria,Urine Rare /hpf; Bilirubin,Urine Negative (Negative); Calcium Oxalate Crystals,Urine Occasional /hpf; Glucose,Urine (UA) Negative (Negative); Ketones,Urine Negative (Negative); Leukocyte Esterase,Urine Large (Negative); Mucus,Urine Rare /hpf; Nitrite,Urine Positive (Negative); PH, Urine 5.5 (5.0-8.0); Particle Count 12538; Protein,Urine Trace (Negative); Specific Gravity,Urine 1.023 (1.001-1.035); UA Billing (MACRO vs. MICRO) MICRO; Urobilinogen,Urine <2.0 mg/dL (<2.0); WBC,Urine 7 /hpf (0-5)
--- NOTE | 2017-06-13 07:23 | CT ---
EXAMINATION TYPE: CT abdomen pelvis wo con DATE OF EXAM: 06/13/2017 COMPARISON: NONE HISTORY: Patient complains of low back pain, nausea, vomiting, and "bowels not working." CT DLP: 1103 mGycm Examination of the solid and hollow viscera is limited given the lack of contrast. FINDINGS: LUNG BASES: No evidence for nodule. No evidence for infiltrate. Small bilateral pleural effusions vargas ntified. Small pericardial effusion noted. LIVER/GB: Cholecystectomy clips are in place. No space-occupying hepatic lesion. PANCREAS: No pancreatic mass identified. No inflammatory process seen. SPLEEN: No evidence for splenomegaly. No intrasplenic lesions seen. ADRENALS: No adrenal nodules identified. No evidence for thickening. KIDNEYS: No evidence for renal mass. No nephrolithiasis. No hydronephrosis. Suprapubic bladder cathet er noted to be in place. BOWEL: Small sliding-type hiatal hernia. Appendix has a normal appearance. No evidence of bowel obstr uction. No inflammatory process. Small and large bowel are of normal caliber. Fluid distended stomach is noted. No evidence for free air or abscess. Lymph nodes: No evidence for adenopathy greater than 1 cm. Abdominal aorta: Atheromatous changes seen. No evidence for aneurysm. Genital organs: Hysterectomy changes identified. No evidence for adnexal mass. Other: No significant abnormality. IMPRESSION: 1. Fluid distended stomach. Small large bowel are of normal caliber. 2 small pleural effusions. 3. Small pericardial effusion. 4 sliding-type hiatal hernia.
[2017-06-13] MEDS ORDERED: HYDROmorphone 2 MG/ML 1 ML SYRINGE IVP STA (07:58)
[2017-06-13] MEDS ORDERED: METOCLOPRAMIDE 5 MG/ML 2 ML VIAL IVP STA (07:58)
[2017-06-13 09:28] VITALS: BP 97/53; PULSE 55; TEMP 97
== END 2017-06-13 09:35 | disposition home or self-care (01) ==
LOC: EC 05:31
DX: R11.2 Nausea with vomiting, unspecified (principal); D72.819 Decreased white blood cell count, unspecified; R14.0 Abdominal distension (gaseous); J44.9 Chronic obstructive pulmonary disease, unspecified; G40.909 Epilepsy, unspecified, not intractable, without status epilepticus; E07.9 Disorder of thyroid, unspecified; I25.2 Old myocardial infarction; Z87.891 Personal history of nicotine dependence; Z79.82 Long term (current) use of aspirin; Z79.899 Other long term (current) drug therapy; Z88.2 Allergy status to sulfonamides; Z88.8 Allergy status to other drugs, medicaments and biological substances; Z86.69 Personal history of other diseases of the nervous system and sense organs; Z85.41 Personal history of malignant neoplasm of cervix uteri; Z85.3 Personal history of malignant neoplasm of breast; Z98.890 Other specified postprocedural states; Z92.21 Personal history of antineoplastic chemotherapy; Z90.49 Acquired absence of other specified parts of digestive tract
CPT/HCPCS: 36415; 93005; 80053; 82150; 83690; 85025; 85610; 85730; 81001; 74176; 99284; 96374; 96375 ×3; 96361 ×3; J1170; J2765; J2405

== ENCOUNTER 2017-07-07 17:06 | Emergency (ER) | payer MEDICARE, OTHER ==
[2017-07-07] MEDS ORDERED: SODIUM CHLORIDE 0.9% 1,000 ML IV STA (17:12)
[2017-07-07] MEDS ORDERED: ONDANSETRON 4 MG/2 ML VIAL IVP STA (17:12)
--- NOTE | 2017-07-07 17:35 | ED ---
Nausea/Vomiting/Diarrhea HPI - General Chief complaint: Nausea/Vomiting/Diarrhea Stated complaint: Vomiting Time Seen by Provider: 07/07/17 17:12 Source: patient, EMS, RN notes reviewed Mode of arrival: EMS Limitations: no limitations - History of Present Illness Initial comments: This is a 52-year-old female presents emergency Department chief complaint of nausea vomiting diarrhea. She's been having nausea and vomiting last 3-4 weeks was admitted prior for this. She states that currently she's been treated with Protonix for acid reflux. She states she was not given any antinausea medication is a 1 to try her on Protonix first. Patient states today she developed diarrhea which she called EMS for. She states that she's gone through a box at depends. She states that she has MS and essentially immobile, has suprapubic catheter in chronic bowel issues with constipation. Patient denies fever, chills, chest pain, shortness breath, headache or dizziness. She states that she is cannot handle symptoms at this time she felt that she needed to come in. - Related Data Home Medications Medication Instructions Recorded Confirmed Cyclobenzaprine [Flexeril] 10 mg PO TID 03/07/14 07/07/17 Propranolol HCl [Inderal LA] 160 mg PO HS 03/07/14 07/07/17 Tamsulosin HCl [Flomax] 0.4 mg PO HS 03/07/14 07/07/17 Topiramate [Topamax] 400 mg PO HS 03/07/14 07/07/17 Aspirin 162 mg PO DAILY 01/09/15 07/07/17 Zolpidem [Ambien] 10 mg PO HS PRN 06/10/15 07/07/17 Albuterol Nebulized [Ventolin 2.5 mg INHALATION RT-QID PRN 04/22/16 07/07/17 Nebulized] Lacosamide [Vimpat] 150 mg PO BID 07/02/16 07/07/17 Levothyroxine Sodium [Synthroid] 100 mcg PO DAILY 07/02/16 07/07/17 Cyanocobalamin [Vitamin B-12 1,000 mcg SQ Q30D 08/05/16 07/07/17 Injection] Oxybutynin Chloride [Ditropan] 10 mg PO BID 08/05/16 07/07/17 oxyCODONE-APAP 10-325MG [Percocet 1.5 - 2 tab PO Q6HR PRN 08/05/16 07/07/17 10-325 mg] Potassium Chloride ER [K-Dur 10] 10 meq PO DAILY 06/13/17 07/07/17 Omeprazole [PriLOSEC] 40 mg PO DAILY 07/07/17 07/07/17 Temazepam [Restoril] 15 mg PO HS PRN 07/07/17 07/07/17 tiZANidine HCL [Zanaflex] 4 mg PO BID 07/07/17 07/07/17 Previous Rx's Medication Instructions Recorded Ondansetron Odt [Zofran Odt] 4 mg PO Q8HR PRN #10 tab 07/07/17 Allergies Allergy/AdvReac Type Severity Reaction Status Date / Time guaifenesin [From Entex LA] Allergy Anaphylaxis Verified 07/07/17 18:51 phenylephrine HCl Allergy Anaphylaxis Verified 07/07/17 18:51 [From Entex LA] phenylpropanolamine HCl Allergy Anaphylaxis Verified 07/07/17 18:51 [From Entex LA] Sulfa (Sulfonamide Allergy Anaphylaxis Verified 07/07/17 18:51 Antibiotics) tuberculin, purified protein Allergy Anaphylaxis Verified 07/07/17 18:51 deriva [Tuberculin,Purif.Prot.Deriv.] pseudoephedrine HCl AdvReac Swelling Verified 07/07/17 18:51 [From Mucinex D] Review of Systems ROS Statement: Those systems with pertinent positive or pertinent negative responses have been documented in the HPI. ROS Other: All systems not noted in ROS Statement are negative. Past Medical History Past Medical History: Cancer, COPD, CVA/TIA, Hyperlipidemia, Myocardial Infarction ([place]), Neurologic Disorder, Seizure Disorder, Thyroid Disorder Additional Past Medical History / Comment(s): Multiple Sclerosis - HAS SUPRAPUBIC CATH. IN W/C. 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 LAST SEIZURE 2015. PVD. Migraines. 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 CERVICAL CA 1997, HAD SURG, CHEMO. RT BREAST CA 2003- LUMPECTOMY ONLY Last Myocardial Infarction Date:: 2004 History of Any Multi-Drug Resistant Organisms: MRSA Date of last positivie culture/infection: 06/14/15 MDRO Source:: sputum Past Surgical History: Cholecystectomy, Hysterectomy, Tonsillectomy Additional Past Surgical History / Comment(s): cardiac cath x 2; sinus surgery FOR DEVIATED SEPTUM; Rt breast lumpectomy; Rt knee surgery x 4 ARTHROSCOPIES AND ACL RECONSTRUCTION HAS METAL IN KNEE; LAPAROSCOPY, EXC ADHESIONS. Suprapubic Cath. back surgery Past Anesthesia/Blood Transfusion Reactions: No Reported Reaction Additional Past Anesthesia/Blood Transfusion Reaction / Comment(s): CLAUSTROPHOBIA Past Psychological History: No Psychological Hx Reported Smoking Status: Former smoker Past Alcohol Use History: None Reported Past Drug Use History: Marijuana - Past Family History Father Family Medical History: Diabetes Mellitus, Myocardial Infarction ([place]), Osteoarthritis ([place]) Additional Family Medical History / Comment(s): OPEN HEART SX Mother Family Medical History: Myocardial Infarction ([place]) Additional Family Medical History / Comment(s): LAST YEAR IN HER SLEEP([place]) General Exam Limitations: no limitations General appearance: alert, in no apparent distress Head exam: Present: atraumatic, normocephalic, normal inspection Respiratory exam: Present: normal lung sounds bilaterally. Absent: respiratory distress, wheezes, rales, rhonchi, stridor Cardiovascular Exam: Present: regular rate, normal rhythm, normal heart sounds. Absent: systolic murmur, diastolic murmur, rubs, gallop, clicks GI/Abdominal exam: Present: soft, tenderness (Diffuse), normal bowel sounds. Absent: distended, guarding, rebound, rigid Back exam: Absent: CVA tenderness (R), CVA tenderness (L) Neurological exam: Present: alert, oriented X3, CN II-XII intact Skin exam: Present: warm, dry, intact, normal color. Absent: rash Course Vital Signs 07/07/17 07/07/17 17:07 19:10 Temperature 97.5 F L 98.4 F Pulse Rate 113 H 80 Respiratory 18 17 Rate Blood Pressure 141/65 122/56 O2 Sat by Pulse 96 97 Oximetry Medical Decision Making - Medical Decision Making 52-year-old female presented unresponsive for nausea vomiting diarrhea. Patient has mild hypokalemia. Patient was given replacement potassium here. Patient had no episodes of vomiting or diarrhea in the emergency Department after 3 hours. Patient states she does feel improved she'll be discharged at this time and advised to have her visiting positions evaluated this week and return for any worsening symptoms. - Lab Data Result diagrams: 07/07/17 17:48 07/07/17 17:48 Lab Results 07/07/17 07/07/17 07/07/17 Range/Units 17:48 17:48 19:00 WBC 6.8 (3.8-10.6) k/uL RBC 4.80 (3.80-5.40) m/uL Hgb 14.5 (11.4-16.0) gm/dL Hct 43.4 (34.0-46.0) % MCV 90.3 (80.0-100.0) fL MCH 30.1 (25.0-35.0) pg MCHC 33.3 (31.0-37.0) g/dL RDW 13.7 (11.5-15.5) % Plt Count 259 (150-450) k/uL Neutrophils % 89 % Lymphocytes % 3 % Monocytes % 5 % Eosinophils % 2 % Basophils % 1 % Neutrophils # 6.1 (1.3-7.7) k/uL Lymphocytes # 0.2 L (1.0-4.8) k/uL Monocytes # 0.3 (0-1.0) k/uL Eosinophils # 0.1 (0-0.7) k/uL Basophils # 0.0 (0-0.2) k/uL Sodium 150 H (137-145) mmol/L Potassium 3.1 L (3.5-5.1) mmol/L Chloride 115 H (98-107) mmol/L Carbon Dioxide 19 L (22-30) mmol/L Anion Gap 16 mmol/L BUN 9 (7-17) mg/dL Creatinine 0.60 (0.52-1.04) mg/dL Est GFR (MDRD) Af Amer >60 (>60 ml/min/1.73 sqM) Est GFR (MDRD) Non-Af >60 (>60 ml/min/1.73 sqM) Glucose 115 H (74-99) mg/dL Calcium 9.6 (8.4-10.2) mg/dL Total Bilirubin 0.4 (0.2-1.3) mg/dL AST 17 (14-36) U/L ALT 26 (9-52) U/L Alkaline Phosphatase 126 (38-126) U/L Total Protein 8.5 H (6.3-8.2) g/dL Albumin 4.5 (3.5-5.0) g/dL Amylase 64 (30-110) U/L Lipase 156 (23-300) U/L Urine Color Yellow Urine Appearance Turbid H (Clear) Urine pH 5.5 (5.0-8.0) Ur Specific [place] 1.018 (1.001-1.035) Urine Protein 1+ H (Negative) Urine Glucose (UA) Negative (Negative) Urine Ketones Negative (Negative) Urine Blood Small H (Negative) Urine Nitrite Positive H (Negative) Urine Bilirubin Negative (Negative) Urine Urobilinogen <2.0 (<2.0) mg/dL Ur Leukocyte Esterase Large H (Negative) Urine RBC 5 (0-5) /hpf Urine WBC 6 H (0-5) /hpf Amorphous Sediment Rare H (None) /hpf Urine Bacteria Occasional H (None) /hpf Hyaline Casts 10 H (0-2) /lpf Urine Mucus Many H (None) /hpf Disposition Clinical Impression: Nausea vomiting and diarrhea Disposition: TRANSFER TO PSYCH HOSP/UNIT Condition: Stable Instructions: Acute Diarrhea (ED), Acute Nausea and Vomiting (ED) Additional Instructions: Please return to the Emergency Department if symptoms worsen or any other concerns. Prescriptions: Ondansetron Odt [Zofran Odt] 4 mg PO Q8HR PRN #10 tab PRN Reason: Nausea Referrals: None,Stated [Primary Care Provider] - 1-2 days Time of Disposition: 20:24
[2017-07-07 18:04] LABS: Basophils % (A) 1 %; CH 30.1; CHCM 33.6; Eosinophils # (A) 0.1 k/uL (0-0.7); Eosinophils % (A) 2 %; HCT 43.4 % (34.0-46.0); HDW 2.86; HGB 14.5 gm/dL (11.4-16.0); Luc # (Auto) 0.07; Luc % (Auto) 1; Lymphocytes # (A) 0.2 k/uL (1.0-4.8); Lymphocytes % (A) 3 %; MCH 30.1 pg (25.0-35.0); MCHC 33.3 g/dL (31.0-37.0); MCV 90.3 fL (80.0-100.0); Mean Platelet Volume 7.5; Monocytes # (A) 0.3 k/uL (0-1.0); Monocytes % (A) 5 %; Neutrophils # (A) 6.1 k/uL (1.3-7.7); Neutrophils % (A) 89 %; RDW 13.7 % (11.5-15.5); WBC 6.8 k/uL (3.8-10.6); WBC (Perox) 6.52
[2017-07-07 18:14] LABS: ALT 26 U/L (9-52); AST 17 U/L (14-36); Alkaline Phosphatase 126 U/L (38-126); Amylase 64 U/L (30-110); Anion Gap 16 mmol/L; Blood Urea Nitrogen 9 mg/dL (7-17); Calcium 9.6 mg/dL (8.4-10.2); Carbon Dioxide 19 mmol/L (22-30); Chloride 115 mmol/L (98-107); Glucose 115 mg/dL (74-99); Non-African American GFR(MDRD) >60 (>60 ml/min/1.73 sqM); Potassium 3.1 mmol/L (3.5-5.1); Sodium 150 mmol/L (137-145); Total Bilirubin 0.4 mg/dL (0.2-1.3); Total Protein 8.5 g/dL (6.3-8.2)
[2017-07-07] MEDS ORDERED: diphenhydrAMINE 50 MG/ML 1 ML VIAL IVP STA (18:30)
[2017-07-07] MEDS ORDERED: HYDROmorphone 1 MG/ML 1 ML SYRINGE IVP STA (18:30)
--- NOTE | 2017-07-07 18:37 | XR ---
EXAMINATION TYPE: XR KUB DATE OF EXAM: 07/07/2017 COMPARISON: 06/13/2017 INDICATION: Pain TECHNIQUE: Single view abdomen upright view FINDINGS: There is a normal bowel gas pattern. Psoas margins are normal. No organomegaly is present. Stimulator leads extend into the lower thoracic region. Osseous structures appear intact. IMPRESSION: 1. Unremarkable Abdomen
[2017-07-07 19:11] VITALS: TEMP 98.4
[2017-07-07] MEDS ORDERED: POTASSIUM CHLORIDE ER 20 MEQ TAB.ER PO STA (19:53)
[2017-07-07] MEDS ORDERED: SODIUM CHLORIDE 0.9% 1,000 ML IV ONE (20:04)
[2017-07-07 20:09] LABS: Amorphous Sediment,Urine Rare /hpf; Appearance,Urine Turbid (Clear); Bacteria,Urine Occasional /hpf; Bilirubin,Urine Negative (Negative); Glucose,Urine (UA) Negative (Negative); Ketones,Urine Negative (Negative); Leukocyte Esterase,Urine Large (Negative); Mucus,Urine Many /hpf; Nitrite,Urine Positive (Negative); PH, Urine 5.5 (5.0-8.0); Particle Count 45894; Protein,Urine 1+ (Negative); RBC,Urine 5 /hpf (0-5); Specific Gravity,Urine 1.018 (1.001-1.035); UA Billing (MACRO vs. MICRO) MICRO; Urobilinogen,Urine <2.0 mg/dL (<2.0); WBC,Urine 6 /hpf (0-5)
[2017-07-07] MEDS ORDERED: KETOROLAC 30 MG/ML 1 ML VIAL IVP STA (20:22)
[2017-07-07] MEDS ORDERED: ONDANSETRON 4 MG ODT STARTER PACK 2 TAB BTL PO STA (20:23)
[2017-07-07 20:30] VITALS: BP 132/65; PULSE 92; RESP 18
== END 2017-07-07 20:47 | disposition home or self-care (01) ==
LOC: EC 17:06
DX: R11.2 Nausea with vomiting, unspecified (principal); R19.7 Diarrhea, unspecified; J44.9 Chronic obstructive pulmonary disease, unspecified; E78.5 Hyperlipidemia, unspecified; I25.2 Old myocardial infarction; G40.909 Epilepsy, unspecified, not intractable, without status epilepticus; E07.9 Disorder of thyroid, unspecified; Z85.41 Personal history of malignant neoplasm of cervix uteri; Z86.14 Personal history of Methicillin resistant Staphylococcus aureus infection; Z87.891 Personal history of nicotine dependence; Z79.82 Long term (current) use of aspirin; Z79.899 Other long term (current) drug therapy; Z88.2 Allergy status to sulfonamides; Z88.5 Allergy status to narcotic agent; Z88.8 Allergy status to other drugs, medicaments and biological substances
CPT/HCPCS: 36415; 80053; 82150; 83690; 85025; 81001; 87086; 74000; 99284; 96374; 96375 ×4; 96361 ×3; J1200; J2405; J1642; J1885; J1170; S0119; 87077; 87186

== ENCOUNTER 2017-07-24 14:04 | Inpatient (IN) | payer MEDICARE, OTHER ==
[2017-07-24] MEDS ORDERED: SODIUM CHLORIDE 0.9% 1,000 ML IV STA (17:30)
[2017-07-24] MEDS ORDERED: ONDANSETRON 4 MG/2 ML VIAL IVP STA (17:31)
--- NOTE | 2017-07-24 17:38 | ED ---
General Adult HPI - General Chief complaint: Nausea/Vomiting/Diarrhea Stated complaint: NVD Time Seen by Provider: 07/24/17 17:23 Source: patient, RN notes reviewed Mode of arrival: wheelchair Limitations: no limitations - History of Present Illness Initial comments: The patient is a 52-year-old female who presents emergency room today with chief complaint of symptoms of nausea vomiting diarrhea over the last 2 months. Patient denies any signs of blood in the emesis or stool. She does admit that she's been seen here in the emergency room for this and was recently admitted. She states she does have a follow-up appointment to see a surgeon for a scope but has not for 10 more days. Patient states that her symptoms do not improve she has been using Zofran home with little relief. Patient does admit symptoms are worse with eating. She describes a burning type pain located in epigastric area. States there is some radiation up into the chest. Patient denies any other complaints or symptoms currently. Patient denies any recent fever, chills, shortness of breath, chest pain, back pain, numbness or tingling, dysuria or hematuria, constipation, headaches or visual changes, or any other complaints. - Related Data Home Medications Medication Instructions Recorded Confirmed Cyclobenzaprine [Flexeril] 10 mg PO TID 03/07/14 07/24/17 Propranolol HCl [Inderal LA] 160 mg PO HS 03/07/14 07/24/17 Tamsulosin HCl [Flomax] 0.4 mg PO HS 03/07/14 07/24/17 Topiramate [Topamax] 400 mg PO HS 03/07/14 07/24/17 Aspirin 162 mg PO DAILY 01/09/15 07/24/17 Zolpidem [Ambien] 10 mg PO HS PRN 06/10/15 07/24/17 Albuterol Nebulized [Ventolin 2.5 mg INHALATION RT-QID PRN 04/22/16 07/24/17 Nebulized] Lacosamide [Vimpat] 150 mg PO BID 07/02/16 07/24/17 Levothyroxine Sodium [Synthroid] 100 mcg PO DAILY 07/02/16 07/24/17 Cyanocobalamin [Vitamin B-12 1,000 mcg SQ Q30D 08/05/16 07/24/17 Injection] Oxybutynin Chloride [Ditropan] 10 mg PO BID 08/05/16 07/24/17 oxyCODONE-APAP 10-325MG [Percocet 1.5 - 2 tab PO Q6HR PRN 08/05/16 07/24/17 10-325 mg] Potassium Chloride ER [K-Dur 10] 10 meq PO DAILY 06/13/17 07/24/17 Omeprazole [PriLOSEC] 40 mg PO DAILY 07/07/17 07/24/17 Temazepam [Restoril] 15 mg PO HS PRN 07/07/17 07/24/17 tiZANidine HCL [Zanaflex] 4 mg PO BID 07/07/17 07/24/17 Previous Rx's Medication Instructions Recorded Ondansetron Odt [Zofran Odt] 4 mg PO Q8HR PRN #10 tab 07/07/17 Cholestyramine (with Sugar) 4 gm PO BID #20 packet 07/11/17 [Questran] Allergies Allergy/AdvReac Type Severity Reaction Status Date / Time guaifenesin [From Entex LA] Allergy Anaphylaxis Verified 07/24/17 18:37 phenylephrine HCl Allergy Anaphylaxis Verified 07/24/17 18:37 [From Entex LA] phenylpropanolamine HCl Allergy Anaphylaxis Verified 07/24/17 18:37 [From Entex LA] Sulfa (Sulfonamide Allergy Anaphylaxis Verified 07/24/17 18:37 Antibiotics) tuberculin, purified protein Allergy Anaphylaxis Verified 07/24/17 18:37 deriva [Tuberculin,Purif.Prot.Deriv.] pseudoephedrine HCl AdvReac Swelling Verified 07/24/17 18:37 [From Mucinex D] Review of Systems ROS Statement: Those systems with pertinent positive or pertinent negative responses have been documented in the HPI. ROS Other: All systems not noted in ROS Statement are negative. Past Medical History Past Medical History: Cancer, COPD, CVA/TIA, Hyperlipidemia, Myocardial Infarction ([place]), Neurologic Disorder, Seizure Disorder, Thyroid Disorder Additional Past Medical History / Comment(s): pt stated she recieved both the flu and pne vaccine this year not sure of the dates-given by a visiting physician. Multiple Sclerosis - HAS SUPRAPUBIC CATH. IN W/C. 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 LAST SEIZURE 12/2015. PVD. Migraines. Stroke 2014. BORN W/ HEART MALFORMATION DEFECT,GENETIC. CERVICAL CA 1997, HAD SURG, CHEMO. RT BREAST CA 2003- LUMPECTOMY ONLY Last Myocardial Infarction Date:: 2004 History of Any Multi-Drug Resistant Organisms: MRSA Date of last positivie culture/infection: 06/14/15 MDRO Source:: sputum Past Surgical History: Cholecystectomy, Hysterectomy, Tonsillectomy Additional Past Surgical History / Comment(s): cardiac cath x 2; sinus surgery FOR DEVIATED SEPTUM; Rt breast lumpectomy; Rt knee surgery x 4 ARTHROSCOPIES AND ACL RECONSTRUCTION HAS METAL IN KNEE; LAPAROSCOPY, EXC ADHESIONS. Suprapubic Cath. back surgery Past Anesthesia/Blood Transfusion Reactions: No Reported Reaction Additional Past Anesthesia/Blood Transfusion Reaction / Comment(s): CLAUSTROPHOBIA Past Psychological History: No Psychological Hx Reported Smoking Status: Former smoker Past Alcohol Use History: None Reported Past Drug Use History: None Reported - Past Family History Father Family Medical History: Diabetes Mellitus, Myocardial Infarction ([place]), Osteoarthritis (OA) Additional Family Medical History / Comment(s): OPEN HEART SX Mother Family Medical History: Myocardial Infarction ([place]) Additional Family Medical History / Comment(s): LAST YEAR IN HER SLEEP([place]) General Exam - General Exam Comments Initial Comments: General: The patient is awake and alert, in no distress, and does not appear acutely ill. Eye: Pupils are equal, round and reactive to light, extra-ocular movements are intact. No nystagmus. There is normal conjunctiva bilaterally. No signs of icterus. Ears, nose, mouth and throat: There are moist mucous membranes and no oral lesions. Neck: The neck is supple, there is no tenderness or JVD. Cardiovascular: There is a regular rate and rhythm. No murmur, rub or gallop is appreciated. Respiratory: Lungs are clear to auscultation, respirations are non-labored, breath sounds are equal. No wheezes, stridor, rales, or rhonchi. Gastrointestinal: Patient has normal appearance and rhythm. Normal bowel sounds. Abdomen soft on palpation. Patient does have tenderness epigastrically no rebound tenderness. No guarding. No CVA tenderness. Musculoskeletal: Normal ROM, no tenderness. Strength 5/5. Sensation intact. Pulses equal bilaterally 2+. Neurological: A&O x 3. CN II-XII intact, There are no obvious motor or sensory deficits. Coordination appears grossly intact. Speech is normal. Skin: Skin is warm and dry and no rashes or lesions are noted. Psychiatric: Cooperative, appropriate mood & affect, normal judgment. Limitations: no limitations Course Vital Signs 07/24/17 07/24/17 07/24/17 14:46 17:13 19:16 Temperature 97.9 F Pulse Rate 78 85 82 Respiratory 18 18 18 Rate Blood Pressure 125/78 141/67 143/67 O2 Sat by Pulse 98 96 98 Oximetry 07/24/17 20:30 Temperature Pulse Rate 76 Respiratory 18 Rate Blood Pressure 130/76 O2 Sat by Pulse 95 Oximetry EKG Findings - EKG Comments: EKG Findings:: Patient's EKG performed at 1741: Shows normal sinus rhythm at 69 bpm. OK interval 118. QRS 82. QT/QTc 412/441. No acute ST changes. Medical Decision Making - Medical Decision Making Patient reexamined at this time shows no signs of distress resting comfortably. Patient did not want try GI cocktail she was to further make her nauseous. Nurses to have some difficulty obtaining IV access. She does have a port however they are unable to draw blood from a puncture placement. It does flush. Patient has no pain with the flush. Patient's labs have been drawn by the lab department. Have been reviewed. Patient's x-rays are unremarkable. Patient presenting for nausea vomiting diarrhea over the last 2 months. Has been seen here in the emergency room multiple times and admitted previously. Still feeling nauseated not comfortable going home. Will be admitted for intractable nausea vomiting. Patient also has been treated for urinary tract infection recently was on Levaquin. At this time is 21 white cells in her urinalysis will be given dose or Rocephin.Case discussed in detail with attending physician Dr. Byrd and patient will be admitted to . - Lab Data Result diagrams: 07/24/17 19:57 07/24/17 19:57 Lab Results 07/24/17 07/24/17 07/24/17 Range/Units 19:11 19:57 19:57 WBC 4.4 (3.8-10.6) k/uL RBC 5.11 (3.80-5.40) m/uL Hgb 15.4 D (11.4-16.0) gm/dL Hct 44.8 (34.0-46.0) % MCV 87.6 (80.0-100.0) fL MCH 30.1 (25.0-35.0) pg MCHC 34.4 (31.0-37.0) g/dL RDW 13.4 (11.5-15.5) % Plt Count 222 (150-450) k/uL Neutrophils % 78 % Lymphocytes % 10 % Monocytes % 6 % Eosinophils % 2 % Basophils % 0 % Neutrophils # 3.5 (1.3-7.7) k/uL Lymphocytes # 0.4 L (1.0-4.8) k/uL Monocytes # 0.3 (0-1.0) k/uL Eosinophils # 0.1 (0-0.7) k/uL Basophils # 0.0 (0-0.2) k/uL PT 10.8 (9.0-12.0) sec INR 1.1 (<1.2) APTT 25.0 (22.0-30.0) sec Sodium (137-145) mmol/L Potassium (3.5-5.1) mmol/L Chloride (98-107) mmol/L Carbon Dioxide (22-30) mmol/L Anion Gap mmol/L BUN (7-17) mg/dL Creatinine (0.52-1.04) mg/dL Est GFR (MDRD) Af Amer (>60 ml/min/1.73 sqM) Est GFR (MDRD) Non-Af (>60 ml/min/1.73 sqM) Glucose (74-99) mg/dL Calcium (8.4-10.2) mg/dL Total Bilirubin (0.2-1.3) mg/dL AST (14-36) U/L ALT (9-52) U/L Alkaline Phosphatase (38-126) U/L Total Creatine Kinase (30-135) U/L CK-MB (CK-2) (0.0-2.4) ng/mL CK-MB (CK-2) Rel Index Troponin I (0.000-0.034) ng/mL Total Protein (6.3-8.2) g/dL Albumin (3.5-5.0) g/dL Amylase (30-110) U/L Lipase (23-300) U/L Urine Color Yellow Urine Appearance Cloudy H (Clear) Urine pH 6.0 (5.0-8.0) Ur Specific [place] 1.018 (1.001-1.035) Urine Protein 1+ H (Negative) Urine Glucose (UA) Negative (Negative) Urine Ketones 3+ H (Negative) Urine Blood Small H (Negative) Urine Nitrite Negative (Negative) Urine Bilirubin 1+ H (Negative) Urine Urobilinogen <2.0 (<2.0) mg/dL Ur Leukocyte Esterase Small H (Negative) Urine RBC 7 H (0-5) /hpf Urine WBC 21 H (0-5) /hpf Urine Bacteria Occasional H (None) /hpf Hyaline Casts 7 H (0-2) /lpf Urine Mucus Many H (None) /hpf 07/24/17 07/24/17 Range/Units 19:57 19:57 WBC (3.8-10.6) k/uL RBC (3.80-5.40) m/uL Hgb (11.4-16.0) gm/dL Hct (34.0-46.0) % MCV (80.0-100.0) fL MCH (25.0-35.0) pg MCHC (31.0-37.0) g/dL RDW (11.5-15.5) % Plt Count (150-450) k/uL Neutrophils % % Lymphocytes % % Monocytes % % Eosinophils % % Basophils % % Neutrophils # (1.3-7.7) k/uL Lymphocytes # (1.0-4.8) k/uL Monocytes # (0-1.0) k/uL Eosinophils # (0-0.7) k/uL Basophils # (0-0.2) k/uL PT (9.0-12.0) sec INR (<1.2) APTT (22.0-30.0) sec Sodium 141 (137-145) mmol/L Potassium 3.6 (3.5-5.1) mmol/L Chloride 105 (98-107) mmol/L Carbon Dioxide 21 L (22-30) mmol/L Anion Gap 15 mmol/L BUN 10 (7-17) mg/dL Creatinine 0.61 (0.52-1.04) mg/dL Est GFR (MDRD) Af Amer >60 (>60 ml/min/1.73 sqM) Est GFR (MDRD) Non-Af >60 (>60 ml/min/1.73 sqM) Glucose 91 (74-99) mg/dL Calcium 9.5 (8.4-10.2) mg/dL Total Bilirubin 0.4 (0.2-1.3) mg/dL AST 13 L (14-36) U/L ALT 22 (9-52) U/L Alkaline Phosphatase 94 (38-126) U/L Total Creatine Kinase <20 L (30-135) U/L CK-MB (CK-2) 0.3 (0.0-2.4) ng/mL CK-MB (CK-2) Rel Index Troponin I 0.031 (0.000-0.034) ng/mL Total Protein 7.0 (6.3-8.2) g/dL Albumin 4.1 (3.5-5.0) g/dL Amylase 85 (30-110) U/L Lipase 172 (23-300) U/L Urine Color Urine Appearance (Clear) Urine pH (5.0-8.0) Ur Specific [place] (1.001-1.035) Urine Protein (Negative) Urine Glucose (UA) (Negative) Urine Ketones (Negative) Urine Blood (Negative) Urine Nitrite (Negative) Urine Bilirubin (Negative) Urine Urobilinogen (<2.0) mg/dL Ur Leukocyte Esterase (Negative) Urine RBC (0-5) /hpf Urine WBC (0-5) /hpf Urine Bacteria (None) /hpf Hyaline Casts (0-2) /lpf Urine Mucus (None) /hpf Disposition Clinical Impression: Intractable nausea and vomiting, UTI (urinary tract infection) Disposition: ADMITTED IP TO THIS [facility] Condition: Good Referrals: Grupo Nelson MD [Primary Care Provider] - 1-2 days Time of Disposition: 20:58
[2017-07-24] MEDS ORDERED: ONDANSETRON ODT 4 MG TAB PO STA (19:21)
[2017-07-24 19:29] LABS: Appearance,Urine Cloudy (Clear); Bacteria,Urine Occasional /hpf; Bilirubin,Urine 1+ (Negative); Blood,Urine Small (Negative); Color,Urine Yellow; Glucose,Urine (UA) Negative (Negative); Hyaline Casts,Urine 7 /lpf (0-2); Ketones,Urine 3+ (Negative); Leukocyte Esterase,Urine Small (Negative); Mucus,Urine Many /hpf; Nitrite,Urine Negative (Negative); Protein,Urine 1+ (Negative); RBC,Urine 7 /hpf (0-5); Specific Gravity,Urine 1.018 (1.001-1.035); Urobilinogen,Urine <2.0 mg/dL (<2.0); WBC,Urine 21 /hpf (0-5)
[2017-07-24] MEDS: MAG HYDROX/AL HYDROX/SIMETH 30 ML, HYOSCYAMINE ELIXIR 10 ML, CIMETIDINE HCL 300 MG, LID... PO STA ×8 (19:31→20:30)
--- NOTE | 2017-07-24 20:02 | XR ---
EXAMINATION TYPE: XR chest 2V DATE OF EXAM: 07/24/2017 HISTORY: Epigastric pain. REFERENCE: Previous study dated 07/09/2017. FINDINGS: There continues to be a faint left basilar opacity this is less apparent than on the previo us study. The right lung is clear. Pleural spaces are clear. Heart size is normal. IMPRESSION: FAINT PERSISTENT LEFT BASILAR OPACITY IMPROVED FROM PREVIOUS.
[2017-07-24 20:03] LABS: Basophils % (A) 0 %; Eosinophils # (A) 0.1 k/uL (0-0.7); Eosinophils % (A) 2 %; HCT 44.8 % (34.0-46.0); Lymphocytes # (A) 0.4 k/uL (1.0-4.8); Lymphocytes % (A) 10 %; MCH 30.1 pg (25.0-35.0); MCHC 34.4 g/dL (31.0-37.0); MCV 87.6 fL (80.0-100.0); Mean Platelet Volume 7.6; Monocytes # (A) 0.3 k/uL (0-1.0); Monocytes % (A) 6 %; Neutrophils # (A) 3.5 k/uL (1.3-7.7); Neutrophils % (A) 78 %; Platelet Count 222 k/uL (150-450); RBC 5.11 m/uL (3.80-5.40); RDW 13.4 % (11.5-15.5); WBC 4.4 k/uL (3.8-10.6)
--- NOTE | 2017-07-24 20:03 | XR ---
EXAMINATION TYPE: XR KUB , 2 VIEWS DATE OF EXAM ORDERED: 07/24/2017 HISTORY: pain. COMPARISON: Previous study dated 07/09/2017. FINDINGS: A spinal stimulator projects over the upper lumbar spine. There has been a previous cholec ystectomy. The abdominal gas pattern is normal. There is no evidence of obstruction or free air. No unusual calc ifications are seen. IMPRESSION: NO ACUTE INTRA-ABDOMINAL ABNORMALITY.
[2017-07-24 20:14] LABS: HGB 15.4 gm/dL (11.4-16.0)
[2017-07-24 20:15] LABS: ALT 22 U/L (9-52); AST 13 U/L (14-36); Albumin 4.1 g/dL (3.5-5.0); Alkaline Phosphatase 94 U/L (38-126); Amylase 85 U/L (30-110); Anion Gap 15 mmol/L; Blood Urea Nitrogen 10 mg/dL (7-17); Calcium 9.5 mg/dL (8.4-10.2); Carbon Dioxide 21 mmol/L (22-30); Chloride 105 mmol/L (98-107); Glucose 91 mg/dL (74-99); INR 1.1 (<1.2); Lipase 172 U/L (23-300); Potassium 3.6 mmol/L (3.5-5.1); Prothrombin Time 10.8 sec (9.0-12.0); Sodium 141 mmol/L (137-145); Total Bilirubin 0.4 mg/dL (0.2-1.3)
[2017-07-24 20:28] LABS: Creatine Kinase <20 U/L (30-135)
[2017-07-24 20:41] LABS: Creatine Kinase MB 0.3 ng/mL (0.0-2.4); Troponin I 0.031 ng/mL (0.000-0.034)
[2017-07-24] MEDS ORDERED: cefTRIAXone IN SWFI 1,000 MG/10 ML SYRINGE IVP STA (20:55)
[2017-07-24] MEDS ORDERED: ONDANSETRON 4 MG/2 ML VIAL IVP PRN (21:03)
[2017-07-24] MEDS ORDERED: HYDROmorphone 1 MG/ML 1 ML SYRINGE IVP PRN (21:03)
[2017-07-24] MEDS ORDERED: NALOXONE 0.4 MG/ML 1 ML VIAL IV PRN (21:03)
[2017-07-24] MEDS: HYDROmorphone 2 MG/ML 1 ML SYRINGE IVP PRN (23:24)
[2017-07-24] MEDS: LACTATED RINGERS 1,000 ML IV SCH (23:25)
[2017-07-24] MEDS: SCOPOLAMINE 1.5MG/72HR PATCH TRANSDERM SCH (23:58)
[2017-07-25 03:16] LABS: Creatine Kinase MB 0.5 ng/mL (0.0-2.4)
[2017-07-25 03:40] LABS: Troponin I 0.047 ng/mL (0.000-0.034)
[2017-07-25 03:57] LABS: Glucose,Whole Blood 83 mg/dL (75-99)
[2017-07-25] MEDS ORDERED: NITROGLYCERIN SL TABS 0.4 MG TAB SUBLINGUAL PRN (04:02)
[2017-07-25] MEDS: HYDROmorphone 2 MG/ML 1 ML SYRINGE IVP PRN (04:09)
[2017-07-25] MEDS: ONDANSETRON 4 MG/2 ML VIAL IVP PRN ×3 (04:13→16:35)
[2017-07-25 04:32] LABS: Basophils % (A) 0 %; Eosinophils # (A) 0.1 k/uL (0-0.7); Eosinophils % (A) 2 %; HCT 42.2 % (34.0-46.0); HGB 13.6 gm/dL (11.4-16.0); Lymphocytes # (A) 0.4 k/uL (1.0-4.8); Lymphocytes % (A) 10 %; MCH 28.7 pg (25.0-35.0); MCHC 32.2 g/dL (31.0-37.0); MCV 89.3 fL (80.0-100.0); Mean Platelet Volume 8.1; Monocytes # (A) 0.3 k/uL (0-1.0); Monocytes % (A) 8 %; Neutrophils % (A) 76 %; Platelet Count 265 k/uL (150-450); RBC 4.73 m/uL (3.80-5.40); RDW 15.1 % (11.5-15.5)
[2017-07-25 04:48] LABS: ALT 24 U/L (9-52); AST 11 U/L (14-36); Albumin 3.5 g/dL (3.5-5.0); Alkaline Phosphatase 81 U/L (38-126); Amylase 67 U/L (30-110); Anion Gap 14 mmol/L; Blood Urea Nitrogen 8 mg/dL (7-17); Carbon Dioxide 19 mmol/L (22-30); Chloride 109 mmol/L (98-107); Glucose 89 mg/dL (74-99); Lipase 171 U/L (23-300); Magnesium 1.5 mg/dL (1.6-2.3); Phosphorus 3.7 mg/dL (2.5-4.5); Potassium 3.5 mmol/L (3.5-5.1); Sodium 142 mmol/L (137-145); Total Bilirubin 0.4 mg/dL (0.2-1.3); Total Protein 6.2 g/dL (6.3-8.2)
[2017-07-25 07:53] VITALS: RESP 16
[2017-07-25] MEDS: MORPHINE SULFATE 2 MG/ML SYRINGE IV PRN ×4 (09:22→21:50)
[2017-07-25] MEDS: LACTATED RINGERS 1,000 ML IV SCH ×2 (09:22→17:38)
[2017-07-25] MEDS ORDERED: TEMAZEPAM 15 MG CAP PO PRN (11:07)
[2017-07-25] MEDS ORDERED: ALBUTEROL NEBULIZED 2.5 MG/3 ML INHALATION PRN (11:07)
[2017-07-25 11:17] VITALS: BMI 32.1
--- NOTE | 2017-07-25 12:47 | P.CRDCN ---
History of Present Illness Consult date: 07/25/17 History of present illness: Mrs. Oates is a pleasant 52-year-old female with past medical history significant for dyslipidemia, seizure disorder, CVA/TIA, COPD and multiple sclerosis. She has no known CAD and had a normal cardiac catheterization 12/[address] Sams. She to the hospital with complaints of epigastric burning, nausea, vomiting and diarrhea for the last 2 months. Last night while in the hospital she developed midsternal chest pain described as burning. She had mild shortness of breath with this pain and of course ongoing nausea/vomiting. She is unable to discern how long the chest pain lasted, no nitroglycerin was given , the pain subsided on its own. At the time of my exam she is currently chest pain free with ongoing epigastric burning similar to that of the previous 2 months. EKG reveals sinus mechanism with T-wave inversion in anterio-lateral leads. This is consistent with old EKG's with no new acute ST abnormalities. Chest xray shows left basilar opacity. Laboratory data reviewed, hemoglobin 13.6, platelets 265, potassium 3.5, magnesium 1.5, albumin 8, creatinine 0.6, troponin 0.031, 0.047, 0.041. Current cardiac medications include aspirin 162 mg daily, propanolol 160 mg daily and potassium supplementation. Review of Systems At the time of my exam: CONSTITUTIONAL: Denies fever. Denies chills. EYES: Denies blurred vision. Denies vision changes. Denies eye pain. EARS, NOSE, MOUTH & THROAT: Denies headache. Denies sore throat. Denies ear pain. CARDIOVASCULAR: Denies chest pain. Complains of shortness of breath. Denies orthopnea. Denies PND. Denies palpitations. RESPIRATORY: Denies cough. GASTROINTESTINAL: Complains of abdominal pain, diarrhea, nausea and vomiting. MUSCULOSKELETAL: Complains of chronic generalized myalgias. INTEGUMENTARY: Denies pruitis. Denies rash. NEUROLOGIC: Denies numbness. Denies tingling. Denies weakness. PSYCHIATRIC: Denies anxiety. Denies depression. ENDOCRINE: Denies fatigue. Denies weight change. Denies polydipsia. Denies polyurina. GENITOURINARY: Denies burning, hematuria or urgency with micturation. HEMATOLOGIC: Denies history of anemia. Denies bleeding. Past Medical History Past Medical History: Cancer, COPD, CVA/TIA, Hyperlipidemia, Myocardial Infarction (NM), Neurologic Disorder, Seizure Disorder, Thyroid Disorder Additional Past Medical History / Comment(s): pt stated she recieved both the flu and pne vaccine this year not sure of the dates-given by a visiting physician. Multiple Sclerosis - HAS SUPRAPUBIC CATH. IN W/C. 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 LAST SEIZURE 12/2015. PVD. Migraines. Stroke 2014. BORN W/ HEART MALFORMATION DEFECT,GENETIC. CERVICAL CA 1997, HAD SURG, CHEMO. RT BREAST CA 2003- LUMPECTOMY ONLY. pt stated "cath was changed during last admission 07-08-17 to 07-12-17" Last Myocardial Infarction Date:: 2004 History of Any Multi-Drug Resistant Organisms: MRSA Date of last positivie culture/infection: 06/14/15 MDRO Source:: sputum Past Surgical History: Cholecystectomy, Hysterectomy, Tonsillectomy Additional Past Surgical History / Comment(s): cardiac cath x 2; sinus surgery FOR DEVIATED SEPTUM; Rt breast lumpectomy; Rt knee surgery x 4 ARTHROSCOPIES AND ACL RECONSTRUCTION HAS METAL IN KNEE; LAPAROSCOPY, EXC ADHESIONS. Suprapubic Cath. back surgery Past Anesthesia/Blood Transfusion Reactions: No Reported Reaction Additional Past Anesthesia/Blood Transfusion Reaction / Comment(s): CLAUSTROPHOBIA Smoking Status: Former smoker - Past Family History Father Family Medical History: Diabetes Mellitus, Myocardial Infarction (NM), Osteoarthritis (OA) Additional Family Medical History / Comment(s): OPEN HEART SX Mother Family Medical History: Myocardial Infarction (NM) Additional Family Medical History / Comment(s): LAST YEAR IN HER SLEEP(NM) Medications and Allergies Home Medications Medication Instructions Recorded Confirmed Type Cyclobenzaprine [Flexeril] 10 mg PO TID 03/07/14 07/24/17 History Propranolol HCl [Inderal LA] 160 mg PO HS 03/07/14 07/24/17 History Tamsulosin HCl [Flomax] 0.4 mg PO HS 03/07/14 07/24/17 History Topiramate [Topamax] 400 mg PO HS 03/07/14 07/24/17 History Aspirin 162 mg PO DAILY 01/09/15 07/24/17 History Zolpidem [Ambien] 10 mg PO HS PRN 06/10/15 07/24/17 History Albuterol Nebulized [Ventolin 2.5 mg INHALATION RT-QID PRN 04/22/16 07/24/17 History Nebulized] Lacosamide [Vimpat] 150 mg PO BID 07/02/16 07/24/17 History Levothyroxine Sodium [Synthroid] 100 mcg PO DAILY 07/02/16 07/24/17 History Cyanocobalamin [Vitamin B-12 1,000 mcg SQ Q30D 08/05/16 07/24/17 History Injection] Oxybutynin Chloride [Ditropan] 10 mg PO BID 08/05/16 07/24/17 History oxyCODONE-APAP 10-325MG [Percocet 1.5 - 2 tab PO Q6HR PRN 08/05/16 07/24/17 History 10-325 mg] Potassium Chloride ER [K-Dur 10] 10 meq PO DAILY 06/13/17 07/24/17 History Omeprazole [PriLOSEC] 40 mg PO DAILY 07/07/17 07/24/17 History Ondansetron Odt [Zofran Odt] 4 mg PO Q8HR PRN #10 tab 07/07/17 07/24/17 Rx Temazepam [Restoril] 15 mg PO HS PRN 07/07/17 07/24/17 History tiZANidine HCL [Zanaflex] 4 mg PO BID 07/07/17 07/24/17 History Cholestyramine (with Sugar) 4 gm PO BID #20 packet 07/11/17 07/24/17 Rx [Questran] Allergies Allergy/AdvReac Type Severity Reaction Status Date / Time guaifenesin [From Entex LA] Allergy Anaphylaxis Verified 07/24/17 18:37 phenylephrine HCl Allergy Anaphylaxis Verified 07/24/17 18:37 [From Entex LA] phenylpropanolamine HCl Allergy Anaphylaxis Verified 07/24/17 18:37 [From Entex LA] Sulfa (Sulfonamide Allergy Anaphylaxis Verified 07/24/17 18:37 Antibiotics) tuberculin, purified protein Allergy Anaphylaxis Verified 07/24/17 18:37 deriva [Tuberculin,Purif.Prot.Deriv.] pseudoephedrine HCl AdvReac Swelling Verified 01/11/18 18:37 [From Mucinex D] Physical Exam Vitals: Vital Signs Temp Pulse Pulse Resp BP BP BP 07/25/17 07:00 97.3 F L 72 16 123/74 07/25/17 05:04 87 118/67 07/25/17 04:15 18 152/77 07/25/17 03:52 98 F 103 H 16 136/83 07/25/17 01:53 98.6 F 07/24/17 23:22 100.9 F H 71 16 110/73 07/24/17 21:57 99.2 F 67 18 131/73 07/24/17 20:30 76 18 130/76 07/24/17 19:16 82 18 143/67 07/24/17 17:13 85 18 141/67 07/24/17 14:46 97.9 F 78 18 125/78 Pulse Ox 07/25/17 07:00 99 07/25/17 05:04 07/25/17 04:15 95 07/25/17 03:52 98 07/25/17 01:53 07/24/17 23:22 96 07/24/17 21:57 98 07/24/17 20:30 95 07/24/17 19:16 98 07/24/17 17:13 96 07/24/17 14:46 98 Intake and Output 07/24/17 07/25/17 07/25/17 22:59 06:59 14:59 Intake Total 700 Balance 700 Intake: Intake, IV Titration 700 Amount Lactated Ringers 1,000 ml 700 @ 100 mls/hr IV .Q10H [facility] Rx#:[id number] Other: Voiding Method Indwelling Catheter Indwelling Catheter Weight 84.822 kg Patient Weight 07/26/17 06:59 Weight 84.822 kg Blood pressure 123/74 heart rate 72 afebrile GENERAL: This is a 52-year-old female in no apparent distress at the time of my examination. Appears older than stated age. HEENT: Head is atraumatic, normocephalic. Pupils are equal, round. Sclerae anicteric. Conjunctivae are clear. Mucous membranes of the mouth are moist. Neck is supple. There is no jugular venous distention. No carotid bruit is heard. LUNGS: Clear to auscultation no wheezes, rales or rhonchi. No chest wall tenderness is noted on palpation or with deep breathing. HEART: Regular rate and rhythm without murmurs, rubs or gallops. S1 and S2 heard. ABDOMEN: Soft, nontender. Bowel sounds are heard. No organomegaly noted. EXTREMITIES: 2+ peripheral pulses with no evidence of peripheral edema and no calf tenderness noted. NEUROLOGIC: Patient is awake, alert and oriented x3. Results 07/25/17 04:16 07/25/17 04:16 Cardiac Enzymes 07/24/17 07/24/17 07/25/17 Range/Units 19:57 19:57 02:15 AST 13 L (14-36) U/L CK-MB (CK-2) 0.3 0.5 (0.0-2.4) ng/mL Troponin I 0.031 0.047 H* (0.000-0.034) ng/mL 07/25/17 07/25/17 Range/Units 04:16 07:37 AST 11 L (14-36) U/L CK-MB (CK-2) (0.0-2.4) ng/mL Troponin I 0.041 H* (0.000-0.034) ng/mL Coagulation 07/24/17 Range/Units 19:57 PT 10.8 (9.0-12.0) sec APTT 25.0 (22.0-30.0) sec CBC 07/24/17 07/25/17 Range/Units 19:57 04:16 WBC 4.4 4.0 (3.8-10.6) k/uL RBC 5.11 4.73 (3.80-5.40) m/uL Hgb 15.4 D 13.6 (11.4-16.0) gm/dL Hct 44.8 42.2 (34.0-46.0) % Plt Count 222 265 (150-450) k/uL Comprehensive Metabolic Panel 07/24/17 07/25/17 Range/Units 19:57 04:16 Sodium 141 142 (137-145) mmol/L Potassium 3.6 3.5 (3.5-5.1) mmol/L Chloride 105 109 H (98-107) mmol/L Carbon Dioxide 21 L 19 L (22-30) mmol/L BUN 10 8 (7-17) mg/dL Creatinine 0.61 0.60 (0.52-1.04) mg/dL Glucose 91 89 (74-99) mg/dL Calcium 9.5 9.0 (8.4-10.2) mg/dL AST 13 L 11 L (14-36) U/L ALT 22 24 (9-52) U/L Alkaline Phosphatase 94 81 (38-126) U/L Total Protein 7.0 6.2 L (6.3-8.2) g/dL Albumin 4.1 3.5 (3.5-5.0) g/dL Current Medications Generic Name Dose Route Start Last Admin Trade Name Freq PRN Reason Stop Dose Admin Acetaminophen 650 mg 07/24/17 23:23 Tylenol Tab PO Q6HR PRN Fever and/ or MILD Pain Albuterol Sulfate 2.5 mg 07/25/17 11:07 Ventolin Nebulized INHALATION RT-QID PRN Shortness Of Breath Cholestyramine Resin 4 gm 07/25/17 21:00 Questran PO BID [facility] Cyclobenzaprine HCl 10 mg 07/25/17 16:00 Flexeril PO TID [facility] Enoxaparin Sodium 40 mg 07/26/17 09:00 Lovenox SQ DAILY [facility] Lactated Ringer's 1,000 mls @ 100 mls/hr 07/24/17 23:15 07/25/17 09:22 Lactated Ringers IV 100 mls/hr .Q10H [facility] Administration Lacosamide 150 mg 07/25/17 21:00 Vimpat PO BID [facility] Levothyroxine Sodium 100 mcg 07/26/17 06:30 Synthroid PO DAILY@0630 [facility] Morphine Sulfate 4 mg 07/25/17 09:02 07/25/17 09:22 Morphine Sulfate (Inj) IV 4 mg Q3H PRN Administration Severe Pain Naloxone HCl 0.2 mg 07/24/17 21:03 Narcan IV Q2M PRN Opioid Reversal Nitroglycerin 0.4 mg 07/25/17 04:02 07/25/17 04:02 Nitrostat SUBLINGUAL 0.4 mg Q5M PRN Administration Chest Pain Ondansetron HCl 4 mg 07/24/17 23:29 07/25/17 09:24 Zofran IVP 4 mg Q6HR PRN Administration Nausea And Vomiting Oxybutynin Chloride 10 mg 07/25/17 21:00 Ditropan PO BID [facility] Oxycodone/Acetaminophen 2 each 07/25/17 11:07 Percocet 10-325 PO Q6HR PRN Pain Pantoprazole Sodium 40 mg 07/26/17 07:30 Protonix PO AC-BRKFST [facility] Potassium Chloride 10 meq 07/26/17 09:00 K-Dur 10 PO DAILY RC Propranolol HCl 160 mg 07/25/17 21:00 Inderal La PO HS RC Scopolamine 1 patch 07/24/17 23:15 07/24/17 23:58 Transderm-Scop 1.5mg/72hr Patch TRANSDERM 1 patch Q72H RC Administration Tamsulosin HCl 0.4 mg 07/25/17 21:00 Flomax PO HS RC Temazepam 15 mg 07/25/17 11:07 Restoril PO HS PRN Insomnia Tizanidine HCl 4 mg 07/25/17 21:00 Zanaflex PO BID RC Topiramate 400 mg 07/25/17 21:00 Topamax PO HS RC Zolpidem Tartrate 10 mg 07/25/17 11:07 Ambien PO HS PRN Insomnia Intake and Output 07/24/17 07/25/17 07/25/17 22:59 06:59 14:59 Intake Total 700 Balance 700 Intake: Intake, IV Titration 700 Amount Lactated Ringers 1,000 ml 700 @ 100 mls/hr IV .Q10H [facility] Rx#:[id number] Other: Voiding Method Indwelling Catheter Indwelling Catheter Weight 84.822 kg Patient Weight 07/26/17 06:59 Weight 84.822 kg 07/25/17 04:16 07/25/17 04:16 Assessment and Plan Assessment: ASSESSMENT 1. Chest pain, atypical with mild troponin elevation not consistent with an acute coronary event of unclear significance PLAN Obtain 2-D echocardiogram and Doppler study to assess cardiac structure and function. EKG abnormality is not a new finding. Consistent with old EKG's with negative stress test and catheterization in the past. If she is still inpatient on Friday we'll perform a Lexiscan stress test to evaluate for reversible cardiac ischemia. This should not hold up her discharge however. She can also schedule this as an outpatient. Nurse Practitioner note has been reviewed, I agree with a documented findings and plan of care. Patient was seen and examined.
--- NOTE | 2017-07-25 13:30 | P.GSCN ---
<Odette Vo - Last Filed: 07/25/17 13:03> History of Present Illness Consult date: 07/25/17 Reason for Consult: Nausea vomiting History of present illness: 52-year-old female being seen for a surgical eval at the request of the attending. Patient presented with intractable nausea vomiting with loose stools onset past 2 months. Patient stated that the symptoms have been ongoing and that she did see dr kilgore scheduled to have an EGD done on July 29. Patient reports that she is using Zofran at home has not obtained any relief. Patient states stools are like water. States has mid epigastric discomfort radiates up into the chest. Patient describes it as a burning sensation Patient has been seen by cardiology service. Cardiology service indicates that the cardiac workup could be done in outpatient setting. If patient is still hospitalized over the weekend on Friday could undergo a Lexiscan Patient had a heart catheterization in 2010 showed no evidence of coronary artery disease at that time. Currently when questioning patient states resting comfortably in bed states continues to have epigastric discomfort since being admitted has not had any stools. a history of multiple sclerosis is a suprapubic catheter in place also has a history of MRSA infection and Pseudomonas. Review of Systems Essentially unremarkable except as mentioned in the present illness Past Medical History Past Medical History: Cancer, COPD, CVA/TIA, Hyperlipidemia, Myocardial Infarction ([place]), Neurologic Disorder, Seizure Disorder, Thyroid Disorder Additional Past Medical History / Comment(s): pt stated she recieved both the flu and pne vaccine this year not sure of the dates-given by a visiting physician. Multiple Sclerosis - HAS SUPRAPUBIC CATH. IN W/C. 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 LAST SEIZURE 12/2015. PVD. Migraines. Stroke 2014. BORN W/ HEART MALFORMATION DEFECT,GENETIC. CERVICAL CA 1997, HAD SURG, CHEMO. RT BREAST CA 2003- LUMPECTOMY ONLY. pt stated "cath was changed during last admission 07-08-17 to 07-12-17" Last Myocardial Infarction Date:: 2004 History of Any Multi-Drug Resistant Organisms: MRSA Year Discovered:: 06/14/15 MDRO Source:: sputum Past Surgical History: Cholecystectomy, Hysterectomy, Tonsillectomy Additional Past Surgical History / Comment(s): cardiac cath x 2; sinus surgery FOR DEVIATED SEPTUM; Rt breast lumpectomy; Rt knee surgery x 4 ARTHROSCOPIES AND ACL RECONSTRUCTION HAS METAL IN KNEE; LAPAROSCOPY, EXC ADHESIONS. Suprapubic Cath. back surgery Past Anesthesia/Blood Transfusion Reactions: No Reported Reaction Additional Past Anesthesia/Blood Transfusion Reaction / Comm: CLAUSTROPHOBIA Smoking Status: Former smoker - Past Family History Father Family Medical History: Diabetes Mellitus, Myocardial Infarction ([place]), Osteoarthritis ([place]) Additional Family Medical History / Comment(s): OPEN HEART SX Mother Family Medical History: Myocardial Infarction ([place]) Additional Family Medical History / Comment(s): LAST YEAR IN HER SLEEP([place]) Medications and Allergies Home Medications Medication Instructions Recorded Confirmed Type Cyclobenzaprine [Flexeril] 10 mg PO TID 03/07/14 07/24/17 History Propranolol HCl [Inderal LA] 160 mg PO HS 03/07/14 07/24/17 History Tamsulosin HCl [Flomax] 0.4 mg PO HS 03/07/14 07/24/17 History Topiramate [Topamax] 400 mg PO HS 03/07/14 07/24/17 History Aspirin 162 mg PO DAILY 01/09/15 07/24/17 History Zolpidem [Ambien] 10 mg PO HS PRN 06/10/15 07/24/17 History Albuterol Nebulized [Ventolin 2.5 mg INHALATION RT-QID PRN 04/22/16 07/24/17 History Nebulized] Lacosamide [Vimpat] 150 mg PO BID 07/02/16 07/24/17 History Levothyroxine Sodium [Synthroid] 100 mcg PO DAILY 07/02/16 07/24/17 History Cyanocobalamin [Vitamin B-12 1,000 mcg SQ Q30D 08/05/16 07/24/17 History Injection] Oxybutynin Chloride [Ditropan] 10 mg PO BID 08/05/16 07/24/17 History oxyCODONE-APAP 10-325MG [Percocet 1.5 - 2 tab PO Q6HR PRN 08/05/16 07/24/17 History 10-325 mg] Potassium Chloride ER [K-Dur 10] 10 meq PO DAILY 06/13/17 07/24/17 History Omeprazole [PriLOSEC] 40 mg PO DAILY 07/07/17 07/24/17 History Ondansetron Odt [Zofran Odt] 4 mg PO Q8HR PRN #10 tab 07/07/17 07/24/17 Rx Temazepam [Restoril] 15 mg PO HS PRN 07/07/17 07/24/17 History tiZANidine HCL [Zanaflex] 4 mg PO BID 07/07/17 07/24/17 History Cholestyramine (with Sugar) 4 gm PO BID #20 packet 07/11/17 07/24/17 Rx [Questran] Allergies Allergy/AdvReac Type Severity Reaction Status Date / Time guaifenesin [From Entex LA] Allergy Anaphylaxis Verified 07/24/17 18:37 phenylephrine HCl Allergy Anaphylaxis Verified 07/24/17 18:37 [From Entex LA] phenylpropanolamine HCl Allergy Anaphylaxis Verified 07/24/17 18:37 [From Entex LA] Sulfa (Sulfonamide Allergy Anaphylaxis Verified 07/24/17 18:37 Antibiotics) tuberculin, purified protein Allergy Anaphylaxis Verified 07/24/17 18:37 deriva [Tuberculin,Purif.Prot.Deriv.] pseudoephedrine HCl AdvReac Swelling Verified 07/24/17 18:37 [From Mucinex D] Surgical - Exam Vital Signs Temp Pulse Resp BP Pulse Ox 97.9 F 78 18 125/78 98 07/24/17 14:46 07/24/17 14:46 07/24/17 14:46 07/24/17 14:46 07/24/17 14:46 GENERAL APPEARANCE: 52-year-old looking older than stated age patient is alert, oriented, in no acute distress. VITAL SIGNS: Reviewed HEENT: Head is normocephalic and atraumatic. Pupils are equal and reactive. The nares are patent. Oropharynx is clear without lesions. NECK: Supple without lymphadenopathy. Traches midline. HEART: S1, S2. Regular rate and rhythm. Currently denying chest pain LUNGS: No crackles or wheezes are heard. Adequate air movement no shortness of breath noted ABDOMEN: Soft, nontender, nondistended with good bowel sounds. No peritoneal signs. No palpable organomegaly or masses reports no stool since admission. Reports mid epigastric discomfort radiates up into the chest feels like a burning sensation. Currently denying any nausea or vomiting when questioning suprapubic catheter in place EXTREMITIES: Normal skin color and turgor. No cyanosis, rash, ulceration, clubbing or edema. Radial pedal pulses are 2/4 bilaterally. NEUROLOGICAL: No focal deficits. Strength and sensation are grossly intact. Results - Labs 07/25/17 04:16 07/25/17 04:16 Abnormal Lab Results - Last 24 Hours (Table) 07/24/17 07/24/17 07/24/17 Range/Units 19:11 19:57 19:57 Lymphocytes # 0.4 L (1.0-4.8) k/uL Chloride (98-107) mmol/L Carbon Dioxide 21 L (22-30) mmol/L Magnesium (1.6-2.3) mg/dL AST 13 L (14-36) U/L Total Creatine Kinase (30-135) U/L Troponin I (0.000-0.034) ng/mL Total Protein (6.3-8.2) g/dL Urine Appearance Cloudy H (Clear) Urine Protein 1+ H (Negative) Urine Ketones 3+ H (Negative) Urine Blood Small H (Negative) Urine Bilirubin 1+ H (Negative) Ur Leukocyte Esterase Small H (Negative) Urine RBC 7 H (0-5) /hpf Urine WBC 21 H (0-5) /hpf Urine Bacteria Occasional H (None) /hpf Hyaline Casts 7 H (0-2) /lpf Urine Mucus Many H (None) /hpf 07/24/17 07/25/17 07/25/17 Range/Units 19:57 02:15 04:16 Lymphocytes # 0.4 L (1.0-4.8) k/uL Chloride (98-107) mmol/L Carbon Dioxide (22-30) mmol/L Magnesium (1.6-2.3) mg/dL AST (14-36) U/L Total Creatine Kinase <20 L 21 L (30-135) U/L Troponin I 0.047 H* (0.000-0.034) ng/mL Total Protein (6.3-8.2) g/dL Urine Appearance (Clear) Urine Protein (Negative) Urine Ketones (Negative) Urine Blood (Negative) Urine Bilirubin (Negative) Ur Leukocyte Esterase (Negative) Urine RBC (0-5) /hpf Urine WBC (0-5) /hpf Urine Bacteria (None) /hpf Hyaline Casts (0-2) /lpf Urine Mucus (None) /hpf 07/25/17 07/25/17 Range/Units 04:16 07:37 Lymphocytes # (1.0-4.8) k/uL Chloride 109 H (98-107) mmol/L Carbon Dioxide 19 L (22-30) mmol/L Magnesium 1.5 L (1.6-2.3) mg/dL AST 11 L (14-36) U/L Total Creatine Kinase (30-135) U/L Troponin I 0.041 H* (0.000-0.034) ng/mL Total Protein 6.2 L (6.3-8.2) g/dL Urine Appearance (Clear) Urine Protein (Negative) Urine Ketones (Negative) Urine Blood (Negative) Urine Bilirubin (Negative) Ur Leukocyte Esterase (Negative) Urine RBC (0-5) /hpf Urine WBC (0-5) /hpf Urine Bacteria (None) /hpf Hyaline Casts (0-2) /lpf Urine Mucus (None) /hpf Diabetes panel 07/24/17 07/25/17 Range/Units 19:57 04:16 Sodium 141 142 (137-145) mmol/L Potassium 3.6 3.5 (3.5-5.1) mmol/L Chloride 105 109 H (98-107) mmol/L Carbon Dioxide 21 L 19 L (22-30) mmol/L BUN 10 8 (7-17) mg/dL Creatinine 0.61 0.60 (0.52-1.04) mg/dL Glucose 91 89 (74-99) mg/dL Calcium 9.5 9.0 (8.4-10.2) mg/dL AST 13 L 11 L (14-36) U/L ALT 22 24 (9-52) U/L Alkaline Phosphatase 94 81 (38-126) U/L Total Protein 7.0 6.2 L (6.3-8.2) g/dL Albumin 4.1 3.5 (3.5-5.0) g/dL Calcium panel 07/24/17 07/25/17 Range/Units 19:57 04:16 Calcium 9.5 9.0 (8.4-10.2) mg/dL Phosphorus 3.7 (2.5-4.5) mg/dL Albumin 4.1 3.5 (3.5-5.0) g/dL Pituitary panel 07/24/17 07/25/17 Range/Units 19:57 04:16 Sodium 141 142 (137-145) mmol/L Potassium 3.6 3.5 (3.5-5.1) mmol/L Chloride 105 109 H (98-107) mmol/L Carbon Dioxide 21 L 19 L (22-30) mmol/L BUN 10 8 (7-17) mg/dL Creatinine 0.61 0.60 (0.52-1.04) mg/dL Glucose 91 89 (74-99) mg/dL Calcium 9.5 9.0 (8.4-10.2) mg/dL Adrenal panel 07/24/17 07/25/17 Range/Units 19:57 04:16 Sodium 141 142 (137-145) mmol/L Potassium 3.6 3.5 (3.5-5.1) mmol/L Chloride 105 109 H (98-107) mmol/L Carbon Dioxide 21 L 19 L (22-30) mmol/L BUN 10 8 (7-17) mg/dL Creatinine 0.61 0.60 (0.52-1.04) mg/dL Glucose 91 89 (74-99) mg/dL Calcium 9.5 9.0 (8.4-10.2) mg/dL Total Bilirubin 0.4 0.4 (0.2-1.3) mg/dL AST 13 L 11 L (14-36) U/L ALT 22 24 (9-52) U/L Alkaline Phosphatase 94 81 (38-126) U/L Total Protein 7.0 6.2 L (6.3-8.2) g/dL Albumin 4.1 3.5 (3.5-5.0) g/dL Assessment and Plan Assessment: Impression Present on admission intractable nausea vomiting diarrhea unclear etiology onset 2 months prior History multiple sclerosis A seizure disorder Dyslipidemia Chest pain with mildly elevated troponin not consistent with acute coronary syndrome of unclear significance with a heart catheterization in 2010 no significant coronary artery disease Present on admission hypo-magnesium hypokalemia History of a MRSA infection in the past Plan Start clear liquid diet monitor the response DVT and GI prophylaxis Continue recommendations by cardiology service Lexiscan to be schedule on Friday is still an inpatient at that time if not to be done in the outpatient setting Possible EGD this admission Monitor labs Home meds as appropriate No evidence of an acute abdomen Will follow surgically with you addressing surgical issues as they arise Consultation note dictated for Dr. Rodriguez The above impression and plan of care have been discussed and directed by signing physician. Odette Vo nurse practitioner acting as scribe for signing physician. <Roland Kilgore - Last Filed: 07/25/17 14:35> Surgical - Exam Vital Signs Temp Pulse Resp BP Pulse Ox 97.9 F 78 18 125/78 98 07/24/17 14:46 07/24/17 14:46 07/24/17 14:46 07/24/17 14:46 07/24/17 14:46 Results - Labs 07/25/17 04:16 07/25/17 04:16 Abnormal Lab Results - Last 24 Hours (Table) 07/24/17 07/24/17 07/24/17 Range/Units 19:11 19:57 19:57 Lymphocytes # 0.4 L (1.0-4.8) k/uL Chloride (98-107) mmol/L Carbon Dioxide 21 L (22-30) mmol/L Magnesium (1.6-2.3) mg/dL AST 13 L (14-36) U/L Total Creatine Kinase (30-135) U/L Troponin I (0.000-0.034) ng/mL Total Protein (6.3-8.2) g/dL Urine Appearance Cloudy H (Clear) Urine Protein 1+ H (Negative) Urine Ketones 3+ H (Negative) Urine Blood Small H (Negative) Urine Bilirubin 1+ H (Negative) Ur Leukocyte Esterase Small H (Negative) Urine RBC 7 H (0-5) /hpf Urine WBC 21 H (0-5) /hpf Urine Bacteria Occasional H (None) /hpf Hyaline Casts 7 H (0-2) /lpf Urine Mucus Many H (None) /hpf 07/24/17 07/25/17 07/25/17 Range/Units 19:57 02:15 04:16 Lymphocytes # 0.4 L (1.0-4.8) k/uL Chloride (98-107) mmol/L Carbon Dioxide (22-30) mmol/L Magnesium (1.6-2.3) mg/dL AST (14-36) U/L Total Creatine Kinase <20 L 21 L (30-135) U/L Troponin I 0.047 H* (0.000-0.034) ng/mL Total Protein (6.3-8.2) g/dL Urine Appearance (Clear) Urine Protein (Negative) Urine Ketones (Negative) Urine Blood (Negative) Urine Bilirubin (Negative) Ur Leukocyte Esterase (Negative) Urine RBC (0-5) /hpf Urine WBC (0-5) /hpf Urine Bacteria (None) /hpf Hyaline Casts (0-2) /lpf Urine Mucus (None) /hpf 07/25/17 07/25/17 Range/Units 04:16 07:37 Lymphocytes # (1.0-4.8) k/uL Chloride 109 H (98-107) mmol/L Carbon Dioxide 19 L (22-30) mmol/L Magnesium 1.5 L (1.6-2.3) mg/dL AST 11 L (14-36) U/L Total Creatine Kinase (30-135) U/L Troponin I 0.041 H* (0.000-0.034) ng/mL Total Protein 6.2 L (6.3-8.2) g/dL Urine Appearance (Clear) Urine Protein (Negative) Urine Ketones (Negative) Urine Blood (Negative) Urine Bilirubin (Negative) Ur Leukocyte Esterase (Negative) Urine RBC (0-5) /hpf Urine WBC (0-5) /hpf Urine Bacteria (None) /hpf Hyaline Casts (0-2) /lpf Urine Mucus (None) /hpf Diabetes panel 07/24/17 07/25/17 Range/Units 19:57 04:16 Sodium 141 142 (137-145) mmol/L Potassium 3.6 3.5 (3.5-5.1) mmol/L Chloride 105 109 H (98-107) mmol/L Carbon Dioxide 21 L 19 L (22-30) mmol/L BUN 10 8 (7-17) mg/dL Creatinine 0.61 0.60 (0.52-1.04) mg/dL Glucose 91 89 (74-99) mg/dL Calcium 9.5 9.0 (8.4-10.2) mg/dL AST 13 L 11 L (14-36) U/L ALT 22 24 (9-52) U/L Alkaline Phosphatase 94 81 (38-126) U/L Total Protein 7.0 6.2 L (6.3-8.2) g/dL Albumin 4.1 3.5 (3.5-5.0) g/dL Calcium panel 07/24/17 07/25/17 Range/Units 19:57 04:16 Calcium 9.5 9.0 (8.4-10.2) mg/dL Phosphorus 3.7 (2.5-4.5) mg/dL Albumin 4.1 3.5 (3.5-5.0) g/dL Pituitary panel 07/24/17 07/25/17 Range/Units 19:57 04:16 Sodium 141 142 (137-145) mmol/L Potassium 3.6 3.5 (3.5-5.1) mmol/L Chloride 105 109 H (98-107) mmol/L Carbon Dioxide 21 L 19 L (22-30) mmol/L BUN 10 8 (7-17) mg/dL Creatinine 0.61 0.60 (0.52-1.04) mg/dL Glucose 91 89 (74-99) mg/dL Calcium 9.5 9.0 (8.4-10.2) mg/dL Adrenal panel 07/24/17 07/25/17 Range/Units 19:57 04:16 Sodium 141 142 (137-145) mmol/L Potassium 3.6 3.5 (3.5-5.1) mmol/L Chloride 105 109 H (98-107) mmol/L Carbon Dioxide 21 L 19 L (22-30) mmol/L BUN 10 8 (7-17) mg/dL Creatinine 0.61 0.60 (0.52-1.04) mg/dL Glucose 91 89 (74-99) mg/dL Calcium 9.5 9.0 (8.4-10.2) mg/dL Total Bilirubin 0.4 0.4 (0.2-1.3) mg/dL AST 13 L 11 L (14-36) U/L ALT 22 24 (9-52) U/L Alkaline Phosphatase 94 81 (38-126) U/L Total Protein 7.0 6.2 L (6.3-8.2) g/dL Albumin 4.1 3.5 (3.5-5.0) g/dL Assessment and Plan Plan: History of chronic nausea and epigastric pain. Patient will undergo EGD on Friday. We will place her on Reglan over the weekend sees that helps her nausea.
[2017-07-25] MEDS ORDERED: BARIUM SULFATE 450 ML ORAL.SUSP BOTTLE PO PRN (15:33)
[2017-07-25] MEDS: CYCLOBENZAPRINE 10 MG TAB PO SCH ×2 (16:28→21:44)
--- NOTE | 2017-07-25 18:29 | HP ---
HISTORY AND PHYSICAL DATE OF ADMISSION: 07/24/2017 DATE OF SERVICE: 07/25/2017 PRESENTING COMPLAINT: Nausea, vomiting, diarrhea. HISTORY OF PRESENTING COMPLAINT: This is a 52-year-old patient of visiting physician Dr. Nelson with a rather extensive medical history. The patient presented with nausea, vomiting, diarrhea. The patient states she has had this problem on and off for about 3 months. The patient's chronic stable medical conditions include multiple sclerosis, which is manifested as slight weakness, headaches sometimes. Off medications. The patient has also got left leg weakness with no sensation from a prior stroke, hypercholesteremia, hypothyroid, COPD. The patient has got a suprapubic catheter due to MS. Patient also has chronic low back pain. The patient does manual evacuation of stool every 2 or 3 days. The patient has had now 2or 3 admissions for this nausea, vomiting and diarrhea that has been present. Even as of yesterday the patient had about 7or 8 bouts of vomiting and can have multiple loose stools; no blood. The patient has some abdominal pain, but nothing significant. Denies any obvious fever. The patient was seen by Dr. Marquis webb in June, and at that time patient was felt to have viral gastroenteritis. The patient's appetite is not very good. REVIEW OF SYSTEMS: CONSTITUTIONAL: Weak and tired. HEENT: None. RESPIRATORY: None. CARDIOVASCULAR: None. GASTROINTESTINAL: As above. GENITOURINARY: Chronic suprapubic catheter. DERMATOLOGICAL: None. HEMATOLOGICAL: None. LYMPHATICS: None. PSYCHIATRY: None. NEUROLOGICAL: Chronic left leg weakness from a stroke. MUSCULOSKELETAL: Chronic low back pain. PAST MEDICAL HISTORY: 1. COPD. 2. Stroke with left leg weakness. 3. Hyperlipidemia. 4. Myocardial infarction. 5. Hypothyroid. 6. Multiple sclerosis with a suprapubic catheter. 7. Migraine. 8. Has a heart malformation. 9. Cervical cancer in . Had surgery and chemo. 10.Right breast cancer in 2003. 11.Lumpectomy. PAST SURGICAL HISTORY: 1. Cholecystectomy. 2. Hysterectomy. 3. Tonsillectomy. 4. Cardiac cath x2. 5. Right knee ACL reconstruction. 6. Back surgery in May 2017. SOCIAL HISTORY: The patient lives with her ex-. 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 with walker. Uses a wheelchair with leg brace. The patient smoked 2 packs a day; started smoking at age 11, stopped in 1992. FAMILY HISTORY: Diabetes, myocardial infarction, osteoarthritis. HOME MEDICATIONS: 1. Zanaflex 4 mg b.i.d. 2. Percocet 10 one and a half to two tablets q.6 p.r.n. 3. Ambien 10 mg at bedtime p.r.n. 4. Topamax 100 mg at bedtime. 5. Restoril 50 mg p.o. at bedtime p.r.n. 6. Flomax 0.4 mg p.o. at bedtime. 7. Inderal LA 160 mg p.o. at bedtime. 8. Potassium 10 mEq p.o. daily. 9. Ditropan 10 mg p.o. b.i.d. 10.Zofran 4 mg p.o. q.8 p.r.n. 11.Prilosec 40 mg p.o. daily. 12.Synthroid 100 mcg p.o. daily. 13.Vimpat 150 mg p.o. b.i.d. 14.Flexeril 10 mg p.o. t.i.d. 15.Vitamin B12 1000 mcg subcutaneously every 30 days. 16.Questran 4 grams p.o. b.i.d. 17.Aspirin 1602 mg p.o. daily. 18.Ventolin 2.5 q.i.d. p.r.n. ALLERGIES: 1. GUAIFENESIN. 2. ENTEX LA. 3. SULFA. 4. TUBERCULIN PPD. 5. MUCINEX D. PHYSICAL EXAMINATION: VITAL SIGNS ON PRESENTATION: Temperature 99.2, pulse 67, respiration 18, blood pressure 131/73, pulse ox 98% on room air. GENERAL APPEARANCE: Well built; BMI 32.1. Lying in bed, tired-appearing. EYES: Pupils equal. Conjunctivae normal. HEENT: Oral cavity with dry mucous membrane. NECK: JVD not raised. Mass not palpable. RESPIRATORY: Effort normal. Lungs are clear. CARDIOVASCULAR: First and second sounds normal. No edema. ABDOMEN: Soft. Minimal central tenderness. No guarding or rigidity. Liver and spleen not palpable. Suprapubic catheter DERMATOLOGICAL: None. NEUROLOGICAL: Cranial nerves grossly intact. Power in the left leg is 0/5 with zero sensation. INVESTIGATIONS: White count 4.4, hemoglobin 15.4, platelets 222. Potassium 3.6. ASSESSMENT: 1. This is a patient who for 3 months has had nausea, vomiting, diarrhea on and off. Initially it was felt to be enteritis. Need to look at other causes. 2. Chronic multiple sclerosis manifesting as generalized weakness and bladder dysfunction. 3. Coronary artery disease with prior history of myocardial infarction. 4. Hyperlipidemia. 5. Hypothyroid. 6. Chronic obstructive pulmonary disease in an ex-smoker. 7. Chronic left leg weakness from a prior stroke. 8. Chronic suprapubic catheter. PLAN: Will start the patient on IV fluids, give the patient a scopolamine patch. GI will be consulted. Stool will be sent off for ova and parasites. We will put the patient on a liquid diet. Patient did have a troponin leak. Cardiology was consulted to consider doing a nuclear stress test. Will replace the patient's magnesium and also add some sodium bicarb. MMODL / IJN: [id number] /
[2017-07-25] MEDS: MAGNESIUM OXIDE 400 MG TAB PO SCH ×2 (19:20→23:11)
[2017-07-25] MEDS: ACETAMINOPHEN TAB 325 MG TAB PO PRN (19:20)
[2017-07-25] MEDS ORDERED: CHOLESTYRAMINE (WITH SUGAR) 4 GM PACKET PO SCH (21:00)
[2017-07-25] MEDS: PSYLLIUM HUSK 100% 6 GM PACKET PO SCH (21:43)
[2017-07-25] MEDS: TOPIRAMATE 100 MG TAB PO SCH (21:44)
[2017-07-25] MEDS: PROPRANOLOL LA 80 MG CAP.SA.24H PO SCH (21:45)
[2017-07-25] MEDS: TAMSULOSIN 0.4 MG CAP.ER.24H PO SCH (21:45)
[2017-07-25] MEDS: OXYBUTYNIN CHLORIDE 5 MG TAB PO SCH (21:46)
[2017-07-25] MEDS: tiZANidine 4 MG TAB PO SCH (21:46)
[2017-07-25] MEDS: LACOSAMIDE 150 MG TABLET PO SCH (23:11)
[2017-07-25] MEDS: ZOLPIDEM 10 MG TAB PO PRN (23:11)
[2017-07-26] MEDS: LACTATED RINGERS 1,000 ML IV SCH ×2 (04:59→15:17)
[2017-07-26] MEDS: ACETAMINOPHEN TAB 325 MG TAB PO PRN (04:59)
[2017-07-26] MEDS: LEVOTHYROXINE 100 MCG TAB PO SCH (07:02)
[2017-07-26] MEDS: PANTOPRAZOLE 40 MG TABLET PO SCH (07:43)
[2017-07-26] MEDS: ASPIRIN 81 MG PO SCH ×2 (07:43→07:57)
[2017-07-26] MEDS: LACOSAMIDE 150 MG TABLET PO SCH ×2 (07:44→21:51)
[2017-07-26] MEDS: tiZANidine 4 MG TAB PO SCH ×2 (07:44→21:51)
[2017-07-26] MEDS: ENOXAPARIN 40 MG/0.4 ML SYRINGE SQ SCH (07:44)
[2017-07-26] MEDS: MAGNESIUM OXIDE 400 MG TAB PO SCH ×3 (07:44→21:51)
[2017-07-26] MEDS: PSYLLIUM HUSK 100% 6 GM PACKET PO SCH (07:44)
[2017-07-26] MEDS: CYCLOBENZAPRINE 10 MG TAB PO SCH ×3 (07:44→21:51)
[2017-07-26] MEDS: OXYBUTYNIN CHLORIDE 5 MG TAB PO SCH ×2 (07:45→21:51)
[2017-07-26] MEDS: POTASSIUM CHLORIDE ER 10 MEQ TAB.ER.PRT PO SCH (07:45)
[2017-07-26] MEDS: oxyCODONE-APAP 10-325MG 1 EACH TAB PO PRN ×2 (07:55→19:48)
--- NOTE | 2017-07-26 10:38 | P.PN ---
Subjective Progress Note Date: 07/26/17 Principal diagnosis: Nausea Patient tolerating clear liquids although still describes nausea. Mild epigastric discomfort as well. No labs from this morning. Objective - Vital Signs Vital signs: Vital Signs Temp 98.3 F 07/26/17 07:00 Pulse 66 07/26/17 07:00 Resp 16 07/26/17 07:00 BP 111/69 07/26/17 07:00 Pulse Ox 100 07/26/17 07:00 Intake & Output 07/25/17 07/26/17 07/26/17 18:59 06:59 18:59 Intake Total 700 1300 Output Total 900 Balance 700 400 Weight 84.822 kg Intake: IV 900 Lactated Ringers 1,000 ml 900 @ 100 mls/hr IV .Q10H RC Rx#:[id number] Intake, IV Titration 700 Amount Lactated Ringers 1,000 ml 700 @ 100 mls/hr IV .Q10H RC Rx#:[id number] Oral 400 Output: Urine 900 Suprapubic 500 Other: Voiding Method Indwelling Catheter Indwelling Catheter Indwelling Catheter # Voids 1 - Exam Abdomen: Soft, nondistended, mild epigastric tenderness - Labs CBC & Chem 7: 07/25/17 04:16 07/25/17 04:16 Labs: Microbiology - Last 24 Hours (Table) 07/24/17 23:52 Blood Culture - Preliminary Blood No Growth after 24 hours 07/24/17 19:58 Blood Culture - Preliminary Blood No Growth after 24 hours 07/24/17 19:11 Urine Culture - Preliminary Urine,Catheterized Assessment and Plan (1) Intractable vomiting with nausea Narrative/Plan: Repeat labs. Continue clear liquids. Continue antiacids. Upper endoscopy Friday. Current Visit: Yes Status: Acute Code(s): R11.2 - NAUSEA WITH VOMITING, UNSPECIFIED SNOMED Code(s): 076962712
--- NOTE | 2017-07-26 14:15 | CONS ---
CONSULTATION REQUESTING PHYSICIAN: Dr. Gavin and Dr. Nelson REASON FOR CONSULTATION: Nausea, vomiting, and diarrhea. The patient is a 52-year-old pleasant white female admitted to hospital because of ongoing nausea, vomiting, diarrhea for the last 2 months duration. The patient states that she has been having episodes of nausea and vomiting intermittently that can happen anywhere between 3-4 a day, but no coffee-grounds emesis. She was admitted to the hospital in June 13 at which time she was evaluated by me and she was treated for a possible viral gastroenteritis symptomatically and was discharged home. Since going home, she has been taking Prilosec 20 mg twice daily and yet continues to have some intermittent epigastric discomfort associated with nausea, vomiting. She also has diarrhea with bowel movements anywhere from 3 to 4 a day, which can be loose and occasionally soft in consistency, but denies any rectal bleeding. She denies any recent NSAID usage. She has history of multiple sclerosis and has a suprapubic catheter for urinary retention. She denies any fever, chills, or night sweats. Reports no recent weight loss. PAST MEDICAL HISTORY: Significant for multiple sclerosis, COPD, history of CVA in the past, hypothyroidism, multiple sclerosis, migraine, hyperlipidemia, hypertension. PAST SURGICAL HISTORY: Cholecystectomy, hysterectomy, tonsillectomy, cardiac cath, right knee ACL, back surgery, right breast cancer lumpectomy. SOCIAL HISTORY: No smoke chronic smoker. No alcohol use. FAMILY HISTORY: Mother has diabetes and father has coronary artery disease. HOME MEDICATIONS: Zanaflex, Percocet, Ambien, Topamax, Zestril, Flomax, Inderal, potassium, Ditropan, Zofran, Prilosec, Synthroid, Vimpat, Flexeril, vitamin B12, Questran, aspirin, and Ventolin. ALLERGIES: To GUAIFENESIN, ENTEX LA, SULFA, TUBERCULIN PPD AND MUCINEX. REVIEW OF SYSTEMS: CARDIOPULMONARY: She denies any chest pain or shortness of breath. GENITOURINARY: No dysuria or hematuria. MUSCULOSKELETAL: History of multiple sclerosis and she has weakness in the left lower extremity. NEUROLOGY: Unremarkable. PSYCHIATRIC: Unremarkable. ENT/VISION: Unremarkable. CONSTITUTIONAL: No recent weight loss. No fever, chills, night sweats. GI: As mentioned above. ENDOCRINE: Unremarkable. HEMATOLOGY: Unremarkable. PHYSICAL EXAMINATION: She appears comfortable. No apparent distress. VITAL SIGNS: Stable. Blood pressure is 140/77, pulse is 68, temperature 99.2. HEENT EXAMINATION: Unremarkable. Conjunctivae pink. Sclerae anicteric. Oral cavity no lesions. NECK: No JVD or lymph node enlargement. Chest was clear to auscultation. HEART: Regular rate and rhythm. ABDOMEN: Soft. Bowel sounds are positive. No organomegaly. EXTREMITIES: No pedal edema. SKIN: No rashes. NEUROLOGIC: Alert and oriented x3. No focal deficits. LAB: WBC 4, hemoglobin 13.6, platelets are normal. Basic metabolic panel is within normal limits. BUN and creatinine within normal limits. ALT, AST, T-bilirubin and alkaline phosphatase are normal. Amylase and lipase are normal. IMPRESSION: This is a lady who presents to the hospital with intermittent episodes of nausea, vomiting, and diarrhea for the last 2 months duration. She was admitted to the hospital in the 1st week of June for the same symptoms, treated with for possible viral gastroenteritis and was discharged home. However, despite being on Prilosec 20 mg daily. She continues to have symptoms and now admitted with nausea, vomiting, and intermittent diarrhea since being in the hospital for nausea, vomiting have resolved and so has her diarrhea. She is presently on IV Zofran as well as IV Protonix. On a clear liquid diet, tolerating well. She was evaluated by surgery by Dr. García and she is scheduled for EGD on Friday. RECOMMENDATIONS: 1. Continue with antiemetics and PPI. 2. Advance diet as tolerated. 3. Patient is already scheduled for an upper endoscopy by Dr. García on Friday and will await results and at this time we will continue to follow her closely during her hospital stay. Thank you for this consultation. MMODL / IJN: [id number] /
[2017-07-26] MEDS: ONDANSETRON 4 MG/2 ML VIAL IVP PRN (19:34)
--- NOTE | 2017-07-26 19:57 | P.PN ---
Progress Note - Text Progress Note Date: 07/26/17 DATE OF SERVICE: 07/26/2017 PRESENTING COMPLAINT: Nausea, vomiting, diarrhea. HISTORY OF PRESENT ILLNESS: 52-year-old female who presented to the emergency department with nausea vomiting and diarrhea. She's had this problem off and on for about 3 months. Admitted for the same. INTERVAL HISTORY: 07/26/2017: Patient lying in bed appears comfortable. Has had no further nausea or vomiting today. Tolerating her diet, gets around with a wheelchair leg brace and assistance, last BM as she does manual stool evacuation, a few times a week. REVIEW OF SYSTEMS: Done for constitutional ,cardiovascular, GI, pulmonary with relevant findings as above. CURRENT MEDICATIONS Tylenol, albuterol, not an Aminophyllin, aspirin, Flexeril, Lovenox, Vimpat, Synthroid, nitroglycerin, Zofran, Ditropan, Percocet, Protonix, potassium chloride, Inderal, Metamucil, scopolamine, sodium bicarbonate, tamsulosin, Restoril, Zanaflex. PHYSICAL EXAM VITAL SIGNS: Temperature 98.3, pulse 66, respiratory rate 16, blood pressure 111/69, oxygen saturation 100% on 2 L. GENERAL APPEARANCE: . Lying in bed, not in distress. HEENT: Normocephalic, Pupils equal. Conjunctiva normal. JVD not raised. Mass not palpable.: RESPIRATORY: Respiratory effort normal. Lungs clear to auscultation. CARDIOVASCULAR: First and second sounds normal. No edema. ABDOMEN: Soft. Liver and spleen not palpable. No tenderness. No mass palpable. Suprapubic catheter in place. PSYCHIATRY: Alert and oriented x3. Mood and affect normal. NEUROLOGIC: Power in the left leg is 0/5 with 0 sensation. INVESTIGATIONS: CBC unremarkable, chloride 109, carbon dioxide 19, magnesium 1.5. ASSESSMENT: -Chronic nausea, vomiting, diarrhea, symptoms relapse and remit, initially felt to be enteritis, -Chronic multiple sclerosis manifesting his generalized weakness and bladder dysfunction. -Coronary artery disease with prior history of myocardial infarction. -Hyperlipidemia. -Hypothyroidism. -Chronic obstructive pulmonary disease in ex-smoker. -Chronic left leg weakness from prior stroke. -Chronic suprapubic catheter. PLAN: Continue antiemetics and PPI, advance diet as per surgery, tentative plan for an upper endoscopy with Dr. García on Friday. Patient is able to continue to tolerate a diet and continues to not have any further nausea vomiting or diarrhea will consider possible discharge in 24 hours. Plan of care discussed at the bedside follow closely. TEMPLATE CLERK statement: Patient was seen and examined by nurse practitioner Katlin Montero and all elements of the case discussed with attending Dr. Gavin
--- NOTE | 2017-07-26 20:06 | PN ---
PROGRESS NOTE DATE OF SERVICE: 07/26/2017. ATTENDING NOTE: The patient seen and examined by me. I discussed with my nurse practitioner, Kana Kylah. The patient presented with intermittent nausea, vomiting, diarrhea. I had put the patient on Metamucil. The patient has had no further diarrhea and did tolerate a liquid diet rather well. No vomiting was noted. EXAMINATION: Afebrile, pulse 61, respirations 16, blood pressure 113/72, pulse ox 99% on room air. ABDOMEN: Soft, nontender. ASSESSMENT: 1. Nausea, vomiting, diarrhea is all greatly improved. Responded well to Metamucil. 2. Chronic multiple sclerosis. 3. Nausea could be side effect of pain medications. PLAN: Will cut back the Metamucil to once a day, discontinue the IV fluids. The patient's diet will be advanced to soft bland and if she can keep it down, she can go home tomorrow and have an EGD that is already scheduled as an outpatient by Dr. García. BETHANIE / JUAN: [id number] /
[2017-07-26] MEDS: TAMSULOSIN 0.4 MG CAP.ER.24H PO SCH (21:51)
[2017-07-26] MEDS: TOPIRAMATE 100 MG TAB PO SCH (21:51)
[2017-07-26] MEDS: PROPRANOLOL LA 80 MG CAP.SA.24H PO SCH (21:51)
[2017-07-26] MEDS: SODIUM BICARBONATE TAB 650 MG TAB PO SCH ×2 (21:53)
[2017-07-27] MEDS: LEVOTHYROXINE 100 MCG TAB PO SCH (06:23)
[2017-07-27] MEDS: oxyCODONE-APAP 10-325MG 1 EACH TAB PO PRN ×2 (06:23→21:24)
[2017-07-27] MEDS: OXYBUTYNIN CHLORIDE 5 MG TAB PO SCH ×2 (07:54→21:22)
[2017-07-27] MEDS: MAGNESIUM OXIDE 400 MG TAB PO SCH ×3 (07:54→21:22)
[2017-07-27] MEDS: PANTOPRAZOLE 40 MG TABLET PO SCH (07:54)
[2017-07-27] MEDS: CYCLOBENZAPRINE 10 MG TAB PO SCH ×3 (07:54→21:22)
[2017-07-27] MEDS: SODIUM BICARBONATE TAB 650 MG TAB PO SCH ×4 (07:54→21:22)
[2017-07-27] MEDS: POTASSIUM CHLORIDE ER 10 MEQ TAB.ER.PRT PO SCH (07:54)
[2017-07-27] MEDS: LACOSAMIDE 150 MG TABLET PO SCH ×2 (07:55→22:37)
[2017-07-27] MEDS: tiZANidine 4 MG TAB PO SCH ×2 (07:55→21:23)
[2017-07-27] MEDS: ASPIRIN 81 MG PO SCH (07:55)
[2017-07-27] MEDS: ENOXAPARIN 40 MG/0.4 ML SYRINGE SQ SCH (07:55)
[2017-07-27] MEDS: PSYLLIUM HUSK 100% 6 GM PACKET PO SCH (08:10)
[2017-07-27 08:23] LABS: Basophils % (A) 1 %; Eosinophils # (A) 0.2 k/uL (0-0.7); Eosinophils % (A) 6 %; HGB 13.7 gm/dL (11.4-16.0); Lymphocytes # (A) 0.3 k/uL (1.0-4.8); Lymphocytes % (A) 11 %; MCH 29.2 pg (25.0-35.0); MCV 91.4 fL (80.0-100.0); Mean Platelet Volume 7.8; Monocytes # (A) 0.2 k/uL (0-1.0); Monocytes % (A) 7 %; Neutrophils % (A) 73 %; Platelet Count 255 k/uL (150-450); RBC 4.71 m/uL (3.80-5.40); RDW 13.9 % (11.5-15.5); WBC 2.8 k/uL (3.8-10.6)
[2017-07-27 08:44] LABS: ALT 24 U/L (9-52); AST 18 U/L (14-36); Albumin 2.6 g/dL (3.5-5.0); Alkaline Phosphatase 60 U/L (38-126); Anion Gap 5 mmol/L; Blood Urea Nitrogen 5 mg/dL (7-17); Calcium 8.7 mg/dL (8.4-10.2); Carbon Dioxide 25 mmol/L (22-30); Chloride 113 mmol/L (98-107); Glucose 83 mg/dL (74-99); Potassium 4.5 mmol/L (3.5-5.1); Sodium 143 mmol/L (137-145); Total Bilirubin 0.2 mg/dL (0.2-1.3); Total Protein 5.1 g/dL (6.3-8.2)
--- NOTE | 2017-07-27 11:22 | PN ---
PROGRESS NOTE DATE OF SERVICE: 07/27/17 REQUESTING PHYSICIAN: Dr. Gavin. The patient is a 52-year-old pleasant white female with a history of multiple sclerosis admitted to the hospital with epigastric pain, nausea, vomiting, diarrhea on and off for the last couple of months duration. She is on proton pump inhibitors and antiemetics and her symptoms are gradually improving. She still complains of epigastric discomfort but the nausea, vomiting has resolved. She is on a heart healthy diet, tolerating well. She did not have any diarrhea since being in the hospital. PHYSICAL EXAMINATION: Appears comfortable. No apparent distress. VITAL SIGNS: Stable. Blood pressure is 120/70, pulse rate 62, temperature 97.6. HEENT examination unremarkable. Conjunctivae pink. Sclerae anicteric. Oral cavity no lesions. Neck no jugular venous distention or lymph node enlargement. Chest clear to auscultation. HEART: Regular rate and rhythm. ABDOMEN: Soft. Bowel sounds are positive. Mild tenderness in the epigastric area. Extremities: No pedal edema. Skin no rashes. NEUROLOGIC: Alert and oriented x3. No focal deficits. LABORATORY DATA: WBC 2.8, hemoglobin 13.7, platelets are normal. Basic metabolic panel is within normal limits. IMPRESSION: This is a lady who presents to the hospital with epigastric pain associated with nausea, vomiting, intermittent diarrhea on and off for the last 2 months duration. Presently on symptomatic therapy with proton pump inhibitors and antiemetics, and symptoms are gradually improving. She was seen by Dr. García yesterday and is scheduled for an upper endoscopy tomorrow. RECOMMENDATIONS: Continue with current management. Await upper endoscopy results. We will follow her closely. Thank you for this consultation. MMODL / IJN: [id number] /
--- NOTE | 2017-07-27 11:40 | P.PN ---
Subjective Progress Note Date: 07/27/17 Principal diagnosis: Nausea Patient continues to have complaints of nausea and vomiting. Mild epigastric pain. Diet was advanced to soft Objective - Vital Signs Vital signs: Vital Signs Temp 97.5 F L 07/27/17 07:00 Pulse 73 07/27/17 07:00 Resp 16 07/27/17 07:00 BP 87/56 07/27/17 07:00 Pulse Ox 94 L 07/27/17 07:00 Intake & Output 07/26/17 07/27/17 07/27/17 18:59 06:59 18:59 Intake Total 800 350 Output Total 1600 Balance 800 -1250 Intake: Intake, IV Titration 800 Amount Lactated Ringers 1,000 ml 800 @ 100 mls/hr IV .Q10H RC Rx#:[id number] Oral 350 Output: Urine 1600 Suprapubic 1600 Other: Voiding Method Indwelling Catheter Indwelling Catheter Indwelling Catheter # Voids 1 - Exam Abdomen: Soft, nondistended, mild epigastric tenderness - Labs CBC & Chem 7: 07/27/17 08:00 07/27/17 06:42 Labs: Abnormal Lab Results - Last 24 Hours (Table) 07/27/17 07/27/17 Range/Units 06:42 08:00 WBC 2.8 L (3.8-10.6) k/uL Lymphocytes # 0.3 L (1.0-4.8) k/uL Chloride 113 H (98-107) mmol/L BUN 5 L (7-17) mg/dL Total Protein 5.1 L (6.3-8.2) g/dL Albumin 2.6 L (3.5-5.0) g/dL Microbiology - Last 24 Hours (Table) 07/24/17 23:52 Blood Culture - Preliminary Blood No Growth after 48 hours 07/24/17 19:58 Blood Culture - Preliminary Blood No Growth after 48 hours 07/24/17 19:11 Urine Culture - Preliminary Urine,Catheterized Group D Enterococcus Assessment and Plan (1) Intractable vomiting with nausea Narrative/Plan: Nothing to eat after midnight for planned upper endoscopy tomorrow. Current Visit: Yes Status: Acute Code(s): R11.2 - NAUSEA WITH VOMITING, UNSPECIFIED SNOMED Code(s): 266754184
--- NOTE | 2017-07-27 20:15 | P.PN ---
Progress Note - Text Progress Note Date: 07/27/17 DATE OF SERVICE: 07/27/2017 PRESENTING COMPLAINT: Nausea, vomiting, diarrhea. HISTORY OF PRESENT ILLNESS: 52-year-old female who presented to the emergency department with nausea vomiting and diarrhea. She's had this problem off and on for about 3 months. Admitted for the same. INTERVAL HISTORY: 07/27/2017: Appears mildly anxious, afebrile, vital signs stable, sitting up in a chair, no further diarrhea is the addition of Metamucil, complains of epigastric pain and nausea. Not able to eat much of her food today. Able to get around with a wheelchair and a leg brace. Scheduled for EGD with Dr. García tomorrow, will be nothing by mouth after midnight. 07/26/2017: Patient lying in bed appears comfortable. Has had no further nausea or vomiting today. Tolerating her diet, gets around with a wheelchair leg brace and assistance, last BM as she does manual stool evacuation, a few times a week. REVIEW OF SYSTEMS: Done for constitutional ,cardiovascular, GI, pulmonary with relevant findings as above. CURRENT MEDICATIONS Tylenol, albuterol, Aminophyllin, aspirin, Flexeril, Lovenox, Vimpat, Synthroid , nitroglycerin, Zofran, Ditropan, Percocet, Protonix, potassium chloride, Inderal, Metamucil, scopolamine, sodium bicarbonate, tamsulosin, Restoril, Topamax, Zanaflex. PHYSICAL EXAM VITAL SIGNS: Temperature 97.5, pulse 73, respiratory rate 16, blood pressure 87/56, oxygen saturation 94% on room air. GENERAL APPEARANCE: . Lying in bed, not in distress. HEENT: Normocephalic, Pupils equal. Conjunctiva normal. JVD not raised. Mass not palpable.: RESPIRATORY: Respiratory effort normal. Lungs clear to auscultation. CARDIOVASCULAR: First and second sounds normal. No edema. ABDOMEN: Soft. Liver and spleen not palpable. Epigastric tenderness. No mass palpable. Suprapubic catheter in place. PSYCHIATRY: Alert and oriented x3. Mood and affect normal. NEUROLOGIC: Power in the left leg is 0/5 with 0 sensation. INVESTIGATIONS: White blood cell count 2.8, BUN 5, creatinine 0.52 ASSESSMENT: -Chronic nausea, vomiting, diarrhea, symptoms relapse and remit, initially felt to be enteritis, diarrhea and vomiting clinically improving -Chronic multiple sclerosis manifesting his generalized weakness and bladder dysfunction. -Coronary artery disease with prior history of myocardial infarction. -Hyperlipidemia. -Hypothyroidism. -Chronic obstructive pulmonary disease in ex-smoker. -Chronic left leg weakness from prior stroke. -Chronic suprapubic catheter. PLAN: Continue antiemetics and PPI, advance diet as per surgery, Metamucil dose reduced patient is no longer having diarrhea, tentative plan for an upper endoscopy with Dr. García on Friday. Nothing by mouth after midnight. Plan of care discussed at the bedside follow closely. DIRECTOR INTEGRATED statement: Patient was seen and examined by nurse practitioner Katlin Montero and all elements of the case discussed with attending Dr. Gavin
--- NOTE | 2017-07-27 20:43 | PN ---
PROGRESS NOTE DATE OF SERVICE: 07/27/17. ATTENDING NOTE: The patient seen and examined by me. Discussed with my nurse practitioner Ms. Montero. Admitted with nausea, vomiting and diarrhea. Diarrhea is completely resolved. None since she has been here. I did cut back on yesterday. Some nausea is present. The patient is due for EGD by Dr. García tomorrow. PHYSICAL EXAMINATION: Temperature 96.9, pulse 61, blood pressure 84/49, pulse ox 98% on room air. ABDOMEN: Soft, nontender. LABORATORY DATA: Potassium 4.5, bicarb has come up to 25. ASSESSMENT: Possible irritable bowel syndrome. Other medical conditions stable. Patient due for EGD tomorrow. Patient should be able to be discharged after that. MMODL / IJN: [id number] /
[2017-07-27] MEDS: TAMSULOSIN 0.4 MG CAP.ER.24H PO SCH (21:22)
[2017-07-27] MEDS: TOPIRAMATE 100 MG TAB PO SCH (21:23)
[2017-07-27] MEDS: ZOLPIDEM 10 MG TAB PO PRN (21:24)
[2017-07-27] MEDS: PROPRANOLOL LA 80 MG CAP.SA.24H PO SCH (22:38)
[2017-07-28] MEDS: SCOPOLAMINE 1.5MG/72HR PATCH TRANSDERM SCH (05:02)
[2017-07-28] MEDS: LEVOTHYROXINE 100 MCG TAB PO SCH (05:58)
[2017-07-28] MEDS ORDERED: AMINOPHYLLINE 500 MG/20 ML VIAL IV PRN (06:00)
[2017-07-28] MEDS ORDERED: REGADENOSON 0.4 MG/5 ML SYRINGE IV ONE (06:00)
--- NOTE | 2017-07-28 08:46 | ECHOF ---
Referral Reason:chest pain MEASUREMENTS -------- HEIGHT: 162.6 cm WEIGHT: 84.8 kg BP: 123/74 IVSd: 1.1 cm (0.6 - 1.1) LVIDd: 3.8 cm (3.9 - 5.3) LVPWd: 1.2 cm (0.6 - 1.1) IVSs: 1.4 cm LVIDs: 2.3 cm LVPWs: 1.4 cm Ao Diam: 2.9 cm (2.0 - 3.7) AV Cusp: 2.3 cm (1.5 - 2.6) LA Diam: 2.6 cm (2.7 - 3.8) MV EXCURSION: 14.577 mm (> 18.000) MV EF SLOPE: 122 mm/s (70 - 150) EPSS: 0.8 cm MV E Fidel: 0.86 m/s MV DecT: 263 ms MV A Fidel: 1.00 m/s MV E/A Ratio: 0.86 RAP: 5.00 mmHg RVSP: 26.52 mmHg FINDINGS -------- Sinus rhythm. This was a technically good study. The left ventricular size is normal. There is borderline concentric left ventricular hypertrophy. Overall left ventricular systolic function is normal with, an EF between 55 - 60 %. The right ventricle is normal in size and function. The left atrium is normal in size. The right atrium is normal in size. The aortic valve is trileaflet, and appears structurally normal. No aortic stenosis or regurgitation. Mild mitral regurgitation is present. Mild tricuspid regurgitation present. The right ventricular systolic pressure, as measured by Doppl er, is 26.52mmHg. Pulmonic valve appears structurally normal. The aortic root size is normal. Normal inferior vena cava with normal inspiratory collapse consistent with estimated right atrial pre ssure of 5 mmHg. The pericardium is normal. CONCLUSIONS -------- 1. Sinus rhythm. 2. This was a technically good study. 3. The left ventricular size is normal. 4. There is borderline concentric left ventricular hypertrophy. 5. Overall left ventricular systolic function is normal with, an EF between 55 - 60 %. 6. The right ventricle is normal in size and function. 7. The left atrium is normal in size. 8. The right atrium is normal in size. 9. The aortic valve is trileaflet, and appears structurally normal. No aortic stenosis or regurgitati on. 10. Mild mitral regurgitation is present. 11. Mild tricuspid regurgitation present. 12. The right ventricular systolic pressure, as measured by Doppler, is 26.52mmHg. 13. Pulmonic valve appears structurally normal. 14. The aortic root size is normal. 15. Normal inferior vena cava with normal inspiratory collapse consistent with estimated right atrial pressure of 5 mmHg. 16. The pericardium is normal. TYPE MAPPER: Maura Jiménez RDCS
[2017-07-28] MEDS: MAGNESIUM OXIDE 400 MG TAB PO SCH ×2 (09:22→17:14)
[2017-07-28] MEDS: PSYLLIUM HUSK 100% 6 GM PACKET PO SCH (09:22)
[2017-07-28] MEDS: ASPIRIN 81 MG PO SCH (09:22)
[2017-07-28] MEDS: PANTOPRAZOLE 40 MG TABLET PO SCH (09:22)
[2017-07-28] MEDS: CYCLOBENZAPRINE 10 MG TAB PO SCH ×2 (09:22→17:14)
[2017-07-28] MEDS: SODIUM BICARBONATE TAB 650 MG TAB PO SCH ×2 (09:23→12:24)
[2017-07-28] MEDS: ENOXAPARIN 40 MG/0.4 ML SYRINGE SQ SCH (09:29)
[2017-07-28] MEDS: tiZANidine 4 MG TAB PO SCH (09:29)
[2017-07-28] MEDS: POTASSIUM CHLORIDE ER 10 MEQ TAB.ER.PRT PO SCH (11:05)
[2017-07-28] MEDS: OXYBUTYNIN CHLORIDE 5 MG TAB PO SCH (11:05)
[2017-07-28] MEDS: LACOSAMIDE 150 MG TABLET PO SCH (11:05)
--- NOTE | 2017-07-28 12:15 | EST ---
EXERCISE STRESS DATE OF SERVICE: 07/28/2017 AGE: 52 SEX: Female HT: 64 WT: 187 PROTOCOL: Lexiscan Cardiolite STAGE: DURATION OF EXERCISE: HEART RATE REST: 79 BLOOD PRESSURE REST: 17/85 MAXIMUM HEART RATE ACHIEVED: 125 MAXIMUM BLOOD PRESSURE: 195/97 85% MPHR: 143 100% MPHR: 168 METS: INDICATIONS: Elevated troponin and abnormal EKG. CLINICAL INFORMATION: Baseline EKG shows sinus rhythm with nonspecific ST-T wave changes in the precordial leads. The patient was given intravenous Lexiscan as per protocol. Did not have chest pain or diagnostic ST-segment depression. CONCLUSIONS: 1. Inconclusive EKG part of the stress test due to baseline EKG abnormalities. 2. Cardiolite portion of this stress test will be reported separately. MMDESIREEL / IJN: [id number] /
--- NOTE | 2017-07-28 12:18 | NM ---
EXAMINATION TYPE: NM stress lexiscan cardiolite DATE OF EXAM: 07/28/2017 COMPARISON: NONE HISTORY: Precordial chest pain and abnormal EKG TECHNIQUE: After the intravenous administration of 9.9 mCi Tc 99m Sestamibi - Cardiolite resting SPE CT images acquired 50 minutes post injection. The patient received 0.4mg Lexiscan, 23.8 mCi Tc 99m Sestamibi - Stress images obtained [address] injection FINDINGS: There is fixed although slightly improved perfusion involving the inferior wall and inferolateral wal l on both stress and rest images compatible with remote insult. No definite stress-induced ischemia i s identified. Gated analysis shows normal wall motion with an estimated left ventricular ejection fra ction of 42 %. IMPRESSION: No scintigraphic evidence for reversible ischemia.
--- NOTE | 2017-07-28 12:29 | P.PN ---
Subjective Progress Note Date: 07/31/17 Mrs. Oates is a pleasant 52-year-old female with past medical history significant for dyslipidemia, seizure disorder, CVA/TIA, COPD and multiple sclerosis. She has no known CAD and had a normal cardiac catheterization 12/[address] Sams. She to the hospital with complaints of epigastric burning, nausea, vomiting and diarrhea for the last 2 months. Last night while in the hospital she developed midsternal chest pain described as burning. She had mild shortness of breath with this pain and of course ongoing nausea/vomiting. She is unable to discern how long the chest pain lasted, no nitroglycerin was given , the pain subsided on its own. At the time of my exam she is currently chest pain free with ongoing epigastric burning similar to that of the previous 2 months. EKG reveals sinus mechanism with T-wave inversion in anterio-lateral leads. This is consistent with old EKG's with no new acute ST abnormalities. Chest xray shows left basilar opacity. Laboratory data reviewed, hemoglobin 13.6, platelets 265, potassium 3.5, magnesium 1.5, albumin 8, creatinine 0.6, troponin 0.031, 0.047, 0.041. Current cardiac medications include aspirin 162 mg daily, propanolol 160 mg daily and potassium supplementation. 07/31/2017 Mrs. Oates is seen today in follow-up. She has had no further episodes of chest pain, shortness of breath, dizziness or palpitations. She continues to complain of ongoing nausea and vomiting. She is scheduled to undergo a Lexiscan stress test today as well as an EGD. Echocardiogram performed reveals preserved left ventricular systolic function with ejection fraction 55-60%, mild MR and TR evident. Objective - Vital Signs Vital signs: Vital Signs Temp 98.3 F 07/28/17 07:00 Pulse 69 07/28/17 08:00 Resp 16 07/28/17 08:00 BP 106/68 07/28/17 07:00 Pulse Ox 96 07/28/17 07:00 Intake & Output 07/27/17 07/28/17 07/28/17 18:59 06:59 18:59 Output Total 1200 700 Balance -1200 -700 Output: Urine 1200 700 Suprapubic 400 Other: Voiding Method Indwelling Catheter Indwelling Catheter Indwelling Catheter # Voids 1 # Bowel Movements 1 - Exam Blood pressure 106/68 heart rate 69 afebrile GENERAL: Well-appearing, well-nourished and in no acute distress. NECK: Supple without JVD or thyromegaly. LUNGS: Breath sounds clear to auscultation bilaterally. Respiration equal and unlabored. No wheezes, rales or rhonchi. HEART: Regular rate and rhythm without murmurs, rubs or gallops. S1 and S2 heard. EXTREMITIES: Normal range of motion, no edema. No clubbing or cyanosis. Peripheral pulses intact and strong. - Labs CBC & Chem 7: 07/27/17 08:00 07/27/17 06:42 Labs: Microbiology - Last 24 Hours (Table) 07/24/17 23:52 Blood Culture - Preliminary Blood No Growth after 72 hours 07/24/17 19:58 Blood Culture - Preliminary Blood No Growth after 72 hours 07/24/17 19:11 Urine Culture - Final Urine,Catheterized Enterococcus faecalis Assessment and Plan Assessment: ASSESSMENT 1. Chest pain, atypical with mild troponin elevation not consistent with an acute coronary event of unclear significance PLAN Lexiscan stress test is negative for any reversible cardiac ischemia. She is stable from a cardiac perspective. Follow up with her primary stencil cutter machine, Dr. Sams in 2-3 weeks after discharge. The above impression and plan of care have been discussed and directed by the signing physician. Jillian Jackson, nurse practitioner, acting as scribe for signing physician.
[2017-07-28] MEDS ORDERED: PROPOFOL 10 MG/ML 20 ML VIAL IV ONE (13:36)
[2017-07-28] MEDS ORDERED: LACTATED RINGERS 1,000 ML IV ONE (13:36)
--- NOTE | 2017-07-28 13:57 | P.OP ---
Date of Procedure: 07/28/17 Preoperative Diagnosis: Chronic nausea and vomiting Postoperative Diagnosis: Mild antral gastritis Procedure(s) Performed: EGD Anesthesia: MAC Surgeon: Roland García Pathology: other (Antrum) Condition: stable Disposition: PACU Description of Procedure: The patient's placed on the endoscopy table in the lateral position. She received IV sedation. The gastroscope placed oropharynx and passed in the esophagus and into the stomach. Scope was then placed through the pylorus. The first and second portion of the duodenum appeared normal. Scope was then brought back the antrum this. Mildly inflamed. A biopsies performed. Scope was unretroflexed and remainder stomach appeared normal. There is no significant hiatal hernia. The GE junction was at 47. The distal esophagus appeared normal. The proximal esophagus appeared normal. Scope was withdrawn for patient.
[2017-07-28] MEDS: oxyCODONE-APAP 10-325MG 1 EACH TAB PO PRN (15:06)
[2017-07-28 15:30] VITALS: BP 107/70; PULSE 73; TEMP 98.4
--- NOTE | 2017-07-29 08:09 | DS ---
DISCHARGE SUMMARY DATE OF ADMISSION: 07/24/2017 DATE OF DISCHARGE: 07/28/2017 FINAL DIAGNOSES: 1. Possible acute flare of irritable bowel syndrome. 2. Chronic multiple sclerosis manifesting generalized weakness and chronic bladder dysfunction requiring a suprapubic catheter/neurogenic bladder. 3. Coronary artery disease prior history of myocardial infarction. 4. Hyperlipidemia. 5. Hypothyroid. 6. Chronic obstructive pulmonary disease in an ex-smoker. 7. Chronic left leg weakness from a prior stroke. 8. Chronic suprapubic catheter from neurogenic bladder from multiple sclerosis. HOSPITAL COURSE: This patient presented with nausea, vomiting, diarrhea. I did add MiraLAX. Diarrhea completely resolved. Nausea got improved. The patient did have an EGD that showed mild antral gastritis if any. Patient also seen by Cardiology. The patient did have a 2-D echocardiogram that did not show any wall motion abnormality. Lexiscan stress test also came back negative. The patient will be kept on Metamucil. CONSULTATION: Dr. García from general surgery, Dr. Radha Hampton from Cardiology. DISCHARGE MEDICATIONS: 1. Flexeril 10 mg p.o. t.i.d. 2. Inderal LA 160 mg q.h.s. 3. Flomax 0.4 mg p.o. q.h.s. 4. Topamax 400 mg p.o. q.h.s. 5. Aspirin 162 mg p.o. daily. 6. Ventolin 2.5 q.i.d. p.r.n. 7. Vimpat 150 mg p.o. b.i.d. 8. Synthroid 100 mcg p.o. daily. 9. Vitamin B12 injection 1000 mcg every 30 days. 10.Ditropan 10 mg p.o. b.i.d. 11.Percocet 10, to 2 tablets q.6 p.r.n. 12.Potassium 10 mEq p.o. daily. 13.Prilosec 40 mg p.o. daily. 14.Zofran 4 mg q.8 p.r.n. 15.Zanaflex 4 mg p.o. b.i.d. 16.Magnesium oxide 400 mg p.o. daily. 17.Metamucil 6 grams p.o. daily. 18.Restoril 15 mg p.o. q.h.s. p.r.n. Follow up with Dr. Marquis Hampton on 08/06/17; visiting physician, Dr. Nelson on 07/30/17; Dr. García on 08/07/17. The patient is told to have a high-fiber diet. ON EXAM: ABDOMEN: Soft, nontender. Suprapubic catheter. PSYCH: A&O x3. Care was discussed with the patient. MMODL / IJN: [id number] /
== END 2017-07-28 18:00 | disposition home or self-care (01) | DRG 392 ==
LOC: EC 14:04 → 5MS5E 21:42
PROVIDERS: ADMIT Hospitalist; ATTEND Hospitalist
PROC: 0DB68ZX Excision of Stomach, Via Natural or Artificial Opening Endoscopic, Diagnostic (ICD-10-PCS; principal; 2017-07-28 07:50)
DX: K58.0 Irritable bowel syndrome with diarrhea (principal); E83.42 Hypomagnesemia; I69.354 Hemiplegia and hemiparesis following cerebral infarction affecting left non-dominant side; N39.0 Urinary tract infection, site not specified; G35 Multiple sclerosis; N31.9 Neuromuscular dysfunction of bladder, unspecified; I25.10 Atherosclerotic heart disease of native coronary artery without angina pectoris; E78.5 Hyperlipidemia, unspecified; E03.9 Hypothyroidism, unspecified; G89.29 Other chronic pain; E78.00 Pure hypercholesterolemia, unspecified; J44.9 Chronic obstructive pulmonary disease, unspecified; K29.60 Other gastritis without bleeding; G40.909 Epilepsy, unspecified, not intractable, without status epilepticus; I73.9 Peripheral vascular disease, unspecified; R11.2 Nausea with vomiting, unspecified; I10 Essential (primary) hypertension; E87.6 Hypokalemia; R33.9 Retention of urine, unspecified; Z87.891 Personal history of nicotine dependence; Z79.899 Other long term (current) drug therapy; Z79.82 Long term (current) use of aspirin; Z79.891 Long term (current) use of opiate analgesic; Z83.3 Family history of diabetes mellitus; Z82.49 Family history of ischemic heart disease and other diseases of the circulatory system; Z86.14 Personal history of Methicillin resistant Staphylococcus aureus infection; Z93.59 Other cystostomy status; Z82.61 Family history of arthritis; I25.2 Old myocardial infarction; Z90.49 Acquired absence of other specified parts of digestive tract; Z90.710 Acquired absence of both cervix and uterus; Z86.69 Personal history of other diseases of the nervous system and sense organs; Z85.41 Personal history of malignant neoplasm of cervix uteri; Z92.21 Personal history of antineoplastic chemotherapy; Z85.3 Personal history of malignant neoplasm of breast; Z90.89 Acquired absence of other organs; Z88.2 Allergy status to sulfonamides; Z88.8 Allergy status to other drugs, medicaments and biological substances
CPT/HCPCS: 36415; 43239; 71046; 74018; 78452; 80053; 81001; 82150; 82550; 82553; 83690; 83735; 84100; 84484; 85025; 85610; 85730; 87040; 87077; 87086; 87186; 87502; 88305; 88342; 93005; 93017; 93306; 96361; 96374; 99285

== ENCOUNTER 2018-02-09 06:51 | Day surgery (SDC) | payer MEDICARE, OTHER ==
[2018-02-02 16:14] VITALS: BMI 28.6
[~2018-02-09 06:51] MED LIST: DEXAMETHASONE SOD PHOSPHATE 10 MG/ML 1 ML VIAL IV ONE; HEPARIN SODIUM,PORCINE 5,000 UNIT/ML 1 ML VIAL SQ ONE; HYDROmorphone 0.5 MG/0.5 ML SYRINGE IVP PRN; LACTATED RINGERS 1,000 ML IV SCH; LIDOCAINE 1% 20 ML VIAL (10MG/ML) FOR IV START INTRADERMA PRN; MIDAZOLAM 2 MG/2 ML VIAL IV PRN; ONDANSETRON 4 MG/2 ML VIAL IVP ONE; Pre Op ABX Message 1 EACH MISC MISCELLANE ONE; SCOPOLAMINE 1.5MG/72HR PATCH TRANSDERM ONE
[2018-02-09 07:12] VITALS: RESP 18; TEMP 97.8
[2018-02-09] MEDS ORDERED: LACTATED RINGERS 1,000 ML IV ONE (07:20)
[2018-02-09] MEDS ORDERED: ONDANSETRON 4 MG/2 ML VIAL IVP ONE (07:21)
--- NOTE | 2018-02-09 07:57 | P.GSHP ---
History of Present Illness H&P Date: 02/09/18 Chief Complaint: IV infusion therapy, history of malfunctioning Port-A-Cath Charge Loader 53-year-old female with history of MS. Patient requires IV infusion therapy. She had a previous Port-A-Cath placed a right chest wall. This eroded through the skin. She presents today for replacement of Port-A-Cath. Past Medical History Past Medical History: Cancer, COPD, CVA/TIA, Deep Vein Thrombosis (DVT), Hyperlipidemia, Myocardial Infarction ([place]), Neurologic Disorder, Seizure Disorder, Thyroid Disorder, Vascular Disorder Additional Past Medical History / Comment(s): Multiple Sclerosis - HAS SUPRAPUBIC CATH. IN W/C. Left-Sided PARALYSIS R/T To Stroke September 2014, LAST SEIZURE UNKNOWN, DVT approx. 1 month ago(December 2017),. PVD. Migraines. BORN W / HEART MALFORMATION DEFECT,cervical cancer 1997-had surg & chemo,. RT BREAST CA 2003. pt stated "cath was changed during last admission , oxygen prn @ 3l Last Myocardial Infarction Date:: 2004 History of Any Multi-Drug Resistant Organisms: MRSA Date of last positivie culture/infection: 06/14/15 MDRO Source:: sputum Past Surgical History: Cholecystectomy, Heart Catheterization, Hysterectomy, Tonsillectomy Additional Past Surgical History / Comment(s): sinus surgery FOR DEVIATED SEPTUM ; Rt breast lumpectomy; Rt knee surgery x 4 ARTHROSCOPIES AND ACL RECONSTRUCTION; LAPAROSCOPY, EXC ADHESIONS. Suprapubic Cath. back surgery 2016 Past Anesthesia/Blood Transfusion Reactions: No Reported Reaction Additional Past Anesthesia/Blood Transfusion Reaction / Comment(s): CLAUSTROPHOBIA Smoking Status: Former smoker - Past Family History Father Family Medical History: Diabetes Mellitus, Myocardial Infarction ([place]), Osteoarthritis ([place]) Additional Family Medical History / Comment(s): OPEN HEART SX Mother Family Medical History: Myocardial Infarction ([place]) Additional Family Medical History / Comment(s): LAST YEAR IN HER SLEEP([place]) Medications and Allergies Home Medications Medication Instructions Recorded Confirmed Type Propranolol HCl [Inderal LA] 160 mg PO HS 03/07/14 02/03/18 History Topiramate [Topamax] 400 mg PO HS 03/07/14 02/03/18 History Aspirin 325 mg PO DAILY 01/09/15 02/03/18 History Lacosamide [Vimpat] 150 mg PO BID 07/02/16 02/03/18 History Levothyroxine Sodium [Synthroid] 100 mcg PO DAILY 07/02/16 02/03/18 History Cyanocobalamin [Vitamin B-12 1,000 mcg SQ Q30D 08/05/16 02/03/18 History Injection] Oxybutynin Chloride [Ditropan] 10 mg PO TID 08/05/16 02/03/18 History Potassium Chloride ER [K-Dur 10] 10 meq PO DAILY 06/13/17 02/03/18 History Omeprazole [PriLOSEC] 40 mg PO DAILY 07/07/17 02/03/18 History tiZANidine HCL [Zanaflex] 4 mg PO BID 07/07/17 02/03/18 History Temazepam [Restoril] 15 mg PO HS PRN cap 07/28/17 02/03/18 Rx Docusate [Colace] 100 mg PO DAILY 02/03/18 02/03/18 History Haloperidol [Haldol] 0.5 mg PO BID PRN 02/03/18 02/03/18 History Hyoscyamine Sulfate [Levsin] 0.125 mg PO Q4H PRN 02/03/18 02/03/18 History LORazepam [Ativan] 0.5 mg PO Q4H PRN 02/03/18 02/03/18 History Loperamide [Imodium] 2 mg PO Q8H PRN 02/03/18 02/03/18 History MORPHINE ORAL TRENT CONC 20mg/mL 10 mg PO Q4H PRN 02/03/18 02/03/18 History [Roxanol Oral Soln Conc 20MG/ML] Magnesium Oxide [Mag-Ox] 0.5 tab PO BID 02/03/18 02/03/18 History Rivaroxaban [Xarelto] 20 mg PO DAILY 02/03/18 02/03/18 History Sennosides [Senokot] 8.6 mg PO HS 02/03/18 02/03/18 History fentaNYL 12MCG/HR PATCH [Duragesic 1 patch TRANSDERM Q72H 02/03/18 02/03/18 History 12MCG/HR] fentaNYL 25MCG/HR PATCH [Duragesic 1 patch TRANSDERM Q72H 02/03/18 02/03/18 History 25MCG/HR] traZODone HCL 50 mg PO HS 02/03/18 02/03/18 History Allergies Allergy/AdvReac Type Severity Reaction Status Date / Time guaifenesin [From Entex LA] Allergy Anaphylaxis Verified 02/02/18 16:10 phenylephrine HCl Allergy Anaphylaxis Verified 02/02/18 16:10 [From Entex LA] phenylpropanolamine HCl Allergy Anaphylaxis Verified 02/02/18 16:10 [From Entex LA] Sulfa (Sulfonamide Allergy Anaphylaxis Verified 02/02/18 16:10 Antibiotics) tuberculin, purified protein Allergy Anaphylaxis Verified 02/02/18 16:10 deriva [Tuberculin,Purif.Prot.Deriv.] pseudoephedrine HCl AdvReac Swelling Verified 02/02/18 16:10 [From Mucinex D] Surgical - Exam Vital Signs Temp Pulse Resp BP Pulse Ox 97.8 F 75 18 118/60 97 02/09/18 07:11 02/09/18 07:11 02/09/18 07:11 02/09/18 07:11 02/09/18 07:11 - General well developed, no distress - Eyes PERRL - ENT normal pinna, normal nares, normal mucosa - Neck no masses - Respiratory normal expansion - Cardiovascular Rhythm: regular - Abdomen Abdomen: soft, non tender Assessment and Plan Assessment: History of MS. We will perform Port-A-Cath insertion.
[2018-02-09] MEDS ORDERED: LIDOCAINE 1% INJ 10MG/ML (20 ML MDV) ONE (08:02)
[2018-02-09] MEDS ORDERED: KETAMINE 10 MG/ML 20 ML VIAL ONE (08:02)
[2018-02-09] MEDS ORDERED: MIDAZOLAM 2 MG/2 ML VIAL ONE (08:02)
[2018-02-09] MEDS ORDERED: PROPOFOL 10 MG/ML 20 ML VIAL IV ONE (08:02)
[2018-02-09] MEDS ORDERED: fentaNYL (PF) 50 MCG/ML 2 ML AMP ONE (08:02)
[2018-02-09] MEDS ORDERED: BUPIVACAIN-EPI 0.5%-1:200,000 30 ML VIAL SQ ONE (08:30)
[2018-02-09] MEDS ORDERED: HEPARIN SODIUM,PORCINE 100 UNIT/ML 5 ML VIAL IV ONE (08:30)
--- NOTE | 2018-02-09 08:50 | FL ---
EXAMINATION TYPE: FL guided central line placemt DATE OF EXAM: 02/09/2018 CLINICAL HISTORY: Port-A-Cath placement. Fluoroscopy utilization and documentation. TECHNIQUE: Fluoroscopy. COMPARISON: None. FINDINGS/IMPRESSION: Fluoroscopic guidance was provided during procedure performed by Dr. García. A total of 3 seconds of fluoroscopic time was utilized during the procedure and 1 spot images was ac quired during placement of a Port-A-Cath.
--- NOTE | 2018-02-09 09:12 | P.OP ---
Date of Procedure: 02/09/18 Preoperative Diagnosis: MS IV infusion therapy Port-A-Cath malfunction Postoperative Diagnosis: Same Procedure(s) Performed: Placement of left subclavian Port-A-Cath Anesthesia: MAC Surgeon: Roland García Pathology: none sent Condition: stable Disposition: PACU Description of Procedure: MPROCEDURE: The patient was placed on the operating table in the supine position. She received MAC anesthetic. The [right] chest was prepped and draped in the usual sterile fashion. The skin underneath the right clavicle was anesthetized with 1% Xylocaine and using Seldinger technique, the right subclavian vein was cannulized. The wire was placed through the needle and positioned under fluoroscopy. Next, the needle was removed and the port site was anesthetized with 1% Xylocaine. Skin was incised with #15 blade and port pocket was made using blunt and sharp dissection. Following this the catheter was attached to the sport and the port was flushed. The port was positioned into the pocket site and was secured with 3-0 Vicryl suture. The catheter was then brought out through the wire site and then the dilator sheath was placed over the wire and the dilator and the wire were removed. The catheter was placed through the sheath and the sheath was removed. The port was flushed with hep-lock solution. Skin was closed with interrupted 3-0 Vicryl sutures. Steri-Strips were applied. The patient tolerated the procedure well. The patient was sent to recovery room for chest x-ray after the procedure.
--- NOTE | 2018-02-09 09:16 | XR ---
EXAMINATION TYPE: XR chest 1V portable DATE OF EXAM: 02/09/2018 COMPARISON: 07/24/2017 HISTORY: Left central line/Port-A-Cath placement. TECHNIQUE: Single frontal view of the chest is obtained. FINDINGS: There is a newly placed left-sided Mediport with removal of the right-sided Mediport termi nating in the superior vena cava. There is no postprocedural pneumothorax identified bilaterally. Spi nal nerve stimulator is incidentally seen as well as cholecystectomy clips in the right upper quadran t. Chronic left basilar subsegmental atelectasis is noted. There is no new focal air space opacity, p leural effusion, or pulmonary vascular congestion seen. The cardiac silhouette size is within normal limits. The osseous structures are intact. IMPRESSION: Removal of the right-sided Mediport and replacement with a left-sided new appropriately placed left-sided Mediport without postprocedural pneumothorax.
[2018-02-09] MEDS ORDERED: fentaNYL (PF) 50 MCG/ML 2 ML AMP IV ONE (09:24)
[2018-02-09 09:26] VITALS: BP 137/87; PULSE 88
== END 2018-02-09 09:58 | disposition home or self-care (01) ==
LOC: OR 06:51
PROVIDERS: ATTEND Surgery
DX: G35 Multiple sclerosis (principal); Z86.718 Personal history of other venous thrombosis and embolism; E78.5 Hyperlipidemia, unspecified; I25.2 Old myocardial infarction; E07.9 Disorder of thyroid, unspecified; I69.354 Hemiplegia and hemiparesis following cerebral infarction affecting left non-dominant side; Z96.0 Presence of urogenital implants; Z85.41 Personal history of malignant neoplasm of cervix uteri; Z85.3 Personal history of malignant neoplasm of breast; G40.909 Epilepsy, unspecified, not intractable, without status epilepticus; G43.909 Migraine, unspecified, not intractable, without status migrainosus; I73.9 Peripheral vascular disease, unspecified; Z87.891 Personal history of nicotine dependence; J44.9 Chronic obstructive pulmonary disease, unspecified; Q24.9 Congenital malformation of heart, unspecified; Z79.01 Long term (current) use of anticoagulants; Z79.82 Long term (current) use of aspirin; Z79.890 Hormone replacement therapy; Z79.891 Long term (current) use of opiate analgesic; Z79.899 Other long term (current) drug therapy; Z88.2 Allergy status to sulfonamides; Z88.8 Allergy status to other drugs, medicaments and biological substances
CPT/HCPCS: 77001; 71045; 36561; C1788; J2250; J1644; J1642; J2405; J2001; J3010; J2704

== ENCOUNTER 2018-04-02 18:33 | Emergency (ER) | payer MEDICARE, OTHER ==
[2018-04-02] MEDS ORDERED: MORPHINE SULFATE 4 MG/ML SYRINGE IVP STA (18:59)
[2018-04-02] MEDS ORDERED: SODIUM CHLORIDE 0.9% 500 ML IV ONE (18:59)
--- NOTE | 2018-04-02 19:07 | ED ---
Extremity Problem HPI - General Chief complaint: Extremity Problem,Nontraumatic Stated complaint: Left arm pain/bump Time Seen by Provider: 04/02/18 18:53 Source: patient Mode of arrival: wheelchair Limitations: no limitations - History of Present Illness Initial comments: 53-year-old female patient presents to the emergency department today for evaluation of swelling and pain to the left upper arm. Patient states that the area has been growing in size and becoming more painful over the last month. Patient states he did have ultrasound of the area couple of weeks ago which showed evidence of hematoma. Patient states that doctor became concerned because the area is growing larger and more erythematous with a center here for further evaluation. Patient is currently residing at [facility]. Patient does have history of venous thrombosis to the left lower leg. Patient does currently take Xarelto. Patient denies any fevers or chills with this. Denies any wounds. Denies any injury to the area, invasive lines, or blood draws at time of onset. Patient does have a left chest Mediport. Patient denies any recent shortness breath, chest pain, abdominal pain, nausea, vomiting , diarrhea, constipation, back pain, numbness, tingling, dizziness, weakness, hematuria, dysuria, urinary urgency, urinary frequency, headache, visual changes , or any other complaints. - Related Data Home Medications Medication Instructions Recorded Confirmed Propranolol HCl [Inderal LA] 160 mg PO HS 03/07/14 04/02/18 Topiramate [Topamax] 400 mg PO HS 03/07/14 04/02/18 Aspirin 325 mg PO DAILY 01/09/15 04/02/18 Lacosamide [Vimpat] 150 mg PO BID 07/02/16 04/02/18 Levothyroxine Sodium [Synthroid] 100 mcg PO DAILY 07/02/16 04/02/18 Cyanocobalamin [Vitamin B-12 1,000 mcg SQ Q30D 08/05/16 04/02/18 Injection] Potassium Chloride ER [K-Dur 10] 10 meq PO DAILY 06/13/17 04/02/18 Omeprazole [PriLOSEC] 40 mg PO DAILY 07/07/17 04/02/18 tiZANidine HCL [Zanaflex] 4 mg PO BID 07/07/17 04/02/18 Docusate [Colace] 100 mg PO DAILY 02/03/18 04/02/18 Haloperidol [Haldol] 0.5 mg PO BID PRN 02/03/18 04/02/18 LORazepam [Ativan] 0.5 mg PO Q4H PRN 02/03/18 04/02/18 MORPHINE ORAL TRENT CONC 20mg/mL 10 mg PO Q4H PRN 02/03/18 04/02/18 [Roxanol Oral Soln Conc 20MG/ML] Rivaroxaban [Xarelto] 20 mg PO DAILY 02/03/18 04/02/18 Sennosides [Senokot] 8.6 mg PO HS 02/03/18 04/02/18 fentaNYL 12MCG/HR PATCH [Duragesic 1 patch TRANSDERM Q72H 02/03/18 04/02/18 12MCG/HR] fentaNYL 25MCG/HR PATCH [Duragesic 1 patch TRANSDERM Q72H 02/03/18 04/02/18 25MCG/HR] traZODone HCL 50 mg PO HS 02/03/18 04/02/18 Acetaminophen-Codeine 300-30mg 1 tab PO Q8HR PRN 04/02/18 04/02/18 [Tylenol w/codeine #3] Lidocaine 5% Patch [Lidoderm] 1 patch TOPICAL Q12H 04/02/18 04/02/18 Magnesium Oxide [Mag-Ox] 125 mg PO Q12H 04/02/18 04/02/18 Melatonin 5 mg PO HS 04/02/18 04/02/18 Oxybutynin ER [Ditropan Xl] 10 mg PO TID 04/02/18 04/02/18 Propylene Glycol/Peg 400 [Systane 1 drop BOTH EYES Q12H 04/02/18 04/02/18 Ultra 0.4-0.3% Eye Drp] Previous Rx's Medication Instructions Recorded Temazepam [Restoril] 15 mg PO HS PRN cap 07/28/17 Allergies Allergy/AdvReac Type Severity Reaction Status Date / Time guaifenesin [From Entex LA] Allergy Anaphylaxis Verified 04/02/18 19:03 phenylephrine HCl Allergy Anaphylaxis Verified 04/02/18 19:03 [From Entex LA] phenylpropanolamine HCl Allergy Anaphylaxis Verified 04/02/18 19:03 [From Entex LA] Sulfa (Sulfonamide Allergy Anaphylaxis Verified 04/02/18 19:03 Antibiotics) tuberculin, purified protein Allergy Anaphylaxis Verified 04/02/18 19:03 deriva [Tuberculin,Purif.Prot.Deriv.] pseudoephedrine HCl AdvReac Swelling Verified 04/02/18 19:03 [From Mucinex D] Review of Systems ROS Statement: Those systems with pertinent positive or pertinent negative responses have been documented in the HPI. ROS Other: All systems not noted in ROS Statement are negative. Past Medical History Past Medical History: Cancer, COPD, CVA/TIA, Deep Vein Thrombosis (DVT), Hyperlipidemia, Myocardial Infarction ([place]), Neurologic Disorder, Seizure Disorder, Thyroid Disorder, Vascular Disorder Additional Past Medical History / Comment(s): Multiple Sclerosis - HAS SUPRAPUBIC CATH. IN W/C. Left-Sided PARALYSIS R/T To Stroke September 2014, LAST SEIZURE UNKNOWN, DVT approx. 1 month ago(December 2017),. PVD. Migraines. BORN W / HEART MALFORMATION DEFECT,cervical cancer 1997-had surg & chemo,. RT BREAST CA 2003. pt stated "cath was changed during last admission , oxygen prn @ 3l Last Myocardial Infarction Date:: 2004 History of Any Multi-Drug Resistant Organisms: MRSA Date of last positivie culture/infection: 06/14/15 MDRO Source:: sputum Past Surgical History: Cholecystectomy, Heart Catheterization, Hysterectomy, Tonsillectomy Additional Past Surgical History / Comment(s): sinus surgery FOR DEVIATED SEPTUM ; Rt breast lumpectomy; Rt knee surgery x 4 ARTHROSCOPIES AND ACL RECONSTRUCTION; LAPAROSCOPY, EXC ADHESIONS. Suprapubic Cath. back surgery 2016 Past Anesthesia/Blood Transfusion Reactions: No Reported Reaction Additional Past Anesthesia/Blood Transfusion Reaction / Comment(s): CLAUSTROPHOBIA Past Psychological History: No Psychological Hx Reported Smoking Status: Former smoker Past Alcohol Use History: None Reported Past Drug Use History: None Reported - Past Family History Father Family Medical History: Diabetes Mellitus, Myocardial Infarction ([place]), Osteoarthritis ([place]) Additional Family Medical History / Comment(s): OPEN HEART SX Mother Family Medical History: Myocardial Infarction ([place]) Additional Family Medical History / Comment(s): LAST YEAR IN HER SLEEP([place]) General Exam Limitations: no limitations General appearance: alert, in no apparent distress, other (This is a well- developed, well-nourished adult female patient in no acute distress. Vital signs upon presentation are temperature 97.9F, pulse 84, respirations 18, blood pressure 100/63, pulse ox 100% on room air.) Eye exam: Present: normal appearance, PERRL, EOMI. Absent: scleral icterus, conjunctival injection, periorbital swelling ENT exam: Present: normal exam, normal oropharynx, mucous membranes moist Respiratory exam: Present: normal lung sounds bilaterally. Absent: respiratory distress, wheezes, rales, rhonchi, stridor Cardiovascular Exam: Present: regular rate, normal rhythm, normal heart sounds. Absent: systolic murmur, diastolic murmur, rubs, gallop, clicks GI/Abdominal exam: Present: soft, normal bowel sounds. Absent: distended, tenderness, guarding, rebound, rigid Extremities exam: Present: full ROM, tenderness (Left upper anterior arm tenderness), normal capillary refill, other (There is large area of swelling, erythema to the left upper arm near the axilla. There is firm to touch, nonfluctuant. Remainder of skin is pink, warm, and dry. Cap refills less than 3 seconds. Radial pulses 2+ and equal bilaterally.). Absent: normal inspection , pedal edema, joint swelling, calf tenderness Neurological exam: Present: alert, oriented X3, CN II-XII intact Psychiatric exam: Present: normal affect, normal mood Skin exam: Present: warm, dry, intact, normal color. Absent: rash Course Vital Signs 04/02/18 04/02/18 04/02/18 18:49 19:32 20:47 Temperature 97.9 F 97.9 F 98.5 F Pulse Rate 84 86 86 Respiratory 18 15 15 Rate Blood Pressure 100/63 109/63 104/57 O2 Sat by Pulse 100 100 98 Oximetry 04/02/18 22:15 Temperature 98.7 F Pulse Rate 86 Respiratory 18 Rate Blood Pressure 117/62 O2 Sat by Pulse 98 Oximetry Medical Decision Making - Medical Decision Making 53-year-old female patient presented to the emergency department today for evaluation of a mass to the left upper arm. Physical examination did reveal a large firm mass with some mild erythema. Neurovascular status was intact to the remainder of the arm. Did perform ultrasound which did show a fluid collection measuring 7.2 2.44.8 cm. Ultrasound report did show possible is a seroma versus hematoma. Given the length of time the mass has been present, normal white blood cell count, patient is afebrile it is felt that this is non- infectious and she will be able to follow up outpatient. Did discuss findings and results with the patient. She is currently residing at [facility]. She has seen Dr. García for procedures in the past and requestes referral to him. She is instructed to either call the surgeon herself or have nursing staff call to make an appointment. She does take pain medication at the facility, she is urged to continue this. She is instructed to return here immediately for any new, worsening, or concerning symptoms. She verbalizes understanding and agrees this plan. - Lab Data Result diagrams: 04/02/18 19:30 04/02/18 19:35 Lab Results 04/02/18 04/02/18 04/02/18 Range/Units 19:30 19:30 19:35 WBC 4.9 5.4 (3.8-10.6) k/uL RBC 3.85 3.39 L (3.80-5.40) m/uL Hgb 10.2 L 9.0 L (11.4-16.0) gm/dL Hct 33.2 L 28.9 L (34.0-46.0) % MCV 86.2 85.2 (80.0-100.0) fL MCH 26.5 26.6 (25.0-35.0) pg MCHC 30.7 L 31.2 (31.0-37.0) g/dL RDW 16.0 H 15.8 H (11.5-15.5) % Plt Count 459 H 439 (150-450) k/uL Neutrophils % 73 72 % Lymphocytes % 16 16 % Monocytes % 7 8 % Eosinophils % 2 1 % Basophils % 1 1 % Neutrophils # 3.6 3.9 (1.3-7.7) k/uL Lymphocytes # 0.8 L 0.9 L (1.0-4.8) k/uL Monocytes # 0.3 0.4 (0-1.0) k/uL Eosinophils # 0.1 0.1 (0-0.7) k/uL Basophils # 0.0 0.0 (0-0.2) k/uL Hypochromasia Marked Moderate PT (9.0-12.0) sec INR (<1.2) APTT (22.0-30.0) sec Sodium 141 (137-145) mmol/L Potassium 4.9 (3.5-5.1) mmol/L Chloride 113 H (98-107) mmol/L Carbon Dioxide 20 L (22-30) mmol/L Anion Gap 8 mmol/L BUN 8 (7-17) mg/dL Creatinine 0.63 (0.52-1.04) mg/dL Est GFR (CKD-EPI)AfAm >90 (>60 ml/min/1.73 sqM) Est GFR (CKD-EPI)NonAf >90 (>60 ml/min/1.73 sqM) Glucose 83 (74-99) mg/dL Calcium 8.4 (8.4-10.2) mg/dL Total Bilirubin 0.3 (0.2-1.3) mg/dL AST 20 (14-36) U/L ALT 22 (9-52) U/L Alkaline Phosphatase 99 (38-126) U/L Total Protein 6.5 (6.3-8.2) g/dL Albumin 2.8 L (3.5-5.0) g/dL 04/02/18 Range/Units 20:22 WBC (3.8-10.6) k/uL RBC (3.80-5.40) m/uL Hgb (11.4-16.0) gm/dL Hct (34.0-46.0) % MCV (80.0-100.0) fL MCH (25.0-35.0) pg MCHC (31.0-37.0) g/dL RDW (11.5-15.5) % Plt Count (150-450) k/uL Neutrophils % % Lymphocytes % % Monocytes % % Eosinophils % % Basophils % % Neutrophils # (1.3-7.7) k/uL Lymphocytes # (1.0-4.8) k/uL Monocytes # (0-1.0) k/uL Eosinophils # (0-0.7) k/uL Basophils # (0-0.2) k/uL Hypochromasia PT 11.3 (9.0-12.0) sec INR 1.2 H (<1.2) APTT 30.8 H (22.0-30.0) sec Sodium (137-145) mmol/L Potassium (3.5-5.1) mmol/L Chloride (98-107) mmol/L Carbon Dioxide (22-30) mmol/L Anion Gap mmol/L BUN (7-17) mg/dL Creatinine (0.52-1.04) mg/dL Est GFR (CKD-EPI)AfAm (>60 ml/min/1.73 sqM) Est GFR (CKD-EPI)NonAf (>60 ml/min/1.73 sqM) Glucose (74-99) mg/dL Calcium (8.4-10.2) mg/dL Total Bilirubin (0.2-1.3) mg/dL AST (14-36) U/L ALT (9-52) U/L Alkaline Phosphatase (38-126) U/L Total Protein (6.3-8.2) g/dL Albumin (3.5-5.0) g/dL - Radiology Data Radiology results: report reviewed, image reviewed Ultrasound of the mastoids to the left upper arm was obtained. There is a fluid pocket seen measuring 7.2 x 2.4 x 4.[address] Malave shows demonstration of an oval-shaped fluid collection area of the lump. I would consider possibilities of a seroma or hematoma. Disposition Clinical Impression: Hematoma of left axilla Disposition: HOME SELF-CARE Condition: Good Instructions: Hematoma (ED) Additional Instructions: Follow-up with surgeon outpatient for further evaluation of the swelling. Continue taking home medications as directed. Return here immediately for any new, worsening, or concerning symptoms. Is patient prescribed a controlled substance at d/c from ED?: No Referrals: Nonstaff,Physician [Primary Care Provider] - 1-2 days Roland García MD [STAFF PHYSICIAN] - 1-2 days Time of Disposition: 21:59
[2018-04-02 19:34] VITALS: PULSE 86
[2018-04-02 19:48] LABS: Basophils % (A) 1 %; Eosinophils # (A) 0.1 k/uL (0-0.7); Eosinophils % (A) 2 %; HCT 33.2 % (34.0-46.0); HGB 10.2 gm/dL (11.4-16.0); Hypochromasia Marked; Lymphocytes # (A) 0.8 k/uL (1.0-4.8); Lymphocytes % (A) 16 %; MCH 26.5 pg (25.0-35.0); MCHC 30.7 g/dL (31.0-37.0); MCV 86.2 fL (80.0-100.0); Mean Platelet Volume 6.9; Monocytes # (A) 0.3 k/uL (0-1.0); Monocytes % (A) 7 %; Neutrophils # (A) 3.6 k/uL (1.3-7.7); Neutrophils % (A) 73 %; Platelet Count 459 k/uL (150-450); RBC 3.85 m/uL (3.80-5.40); WBC 4.9 k/uL (3.8-10.6)
[2018-04-02 20:33] LABS: Basophils % (A) 1 %; Eosinophils # (A) 0.1 k/uL (0-0.7); Eosinophils % (A) 1 %; HCT 28.9 % (34.0-46.0); Hypochromasia Moderate; Lymphocytes # (A) 0.9 k/uL (1.0-4.8); Lymphocytes % (A) 16 %; MCH 26.6 pg (25.0-35.0); MCHC 31.2 g/dL (31.0-37.0); MCV 85.2 fL (80.0-100.0); Mean Platelet Volume 7.7; Monocytes # (A) 0.4 k/uL (0-1.0); Monocytes % (A) 8 %; Neutrophils # (A) 3.9 k/uL (1.3-7.7); Neutrophils % (A) 72 %; Platelet Count 439 k/uL (150-450); RBC 3.39 m/uL (3.80-5.40); RDW 15.8 % (11.5-15.5); WBC 5.4 k/uL (3.8-10.6)
[2018-04-02 20:39] LABS: INR 1.2 (<1.2); Partial Thromboplastin Time 30.8 sec (22.0-30.0); Prothrombin Time 11.3 sec (9.0-12.0)
[2018-04-02 21:06] LABS: ALT 22 U/L (9-52); AST 20 U/L (14-36); Albumin 2.8 g/dL (3.5-5.0); Alkaline Phosphatase 99 U/L (38-126); Anion Gap 8 mmol/L; Blood Urea Nitrogen 8 mg/dL (7-17); Calcium 8.4 mg/dL (8.4-10.2); Carbon Dioxide 20 mmol/L (22-30); Chloride 113 mmol/L (98-107); Glucose 83 mg/dL (74-99); Potassium 4.9 mmol/L (3.5-5.1); Sodium 141 mmol/L (137-145); Total Bilirubin 0.3 mg/dL (0.2-1.3); Total Protein 6.5 g/dL (6.3-8.2)
--- NOTE | 2018-04-02 21:47 | US ---
EXAMINATION TYPE: US extremity nonvasc mass LT DATE OF EXAM: 04/02/2018 COMPARISON: NONE CLINICAL HISTORY: Pain. Left arm lump below shoulder anterior arm. Fluid pocket seen measuring 7.2 x 2.4 x 4.8cm. IMPRESSION: There is demonstration of an oval-shaped fluid collection in the area of the lump. I wou ld consider possibilities of a seroma or hematoma.
[2018-04-02] MEDS ORDERED: KETOROLAC 30 MG/ML 1 ML VIAL IVP STA (21:58)
[2018-04-02 22:16] VITALS: BP 117/62; RESP 18; TEMP 98.7
== END 2018-04-02 23:00 | disposition home or self-care (01) ==
LOC: EC 18:33
DX: S40.022A Contusion of left upper arm, initial encounter (principal); Q24.9 Congenital malformation of heart, unspecified; I69.354 Hemiplegia and hemiparesis following cerebral infarction affecting left non-dominant side; E07.9 Disorder of thyroid, unspecified; G40.909 Epilepsy, unspecified, not intractable, without status epilepticus; I73.9 Peripheral vascular disease, unspecified; I25.2 Old myocardial infarction; Z87.891 Personal history of nicotine dependence; Z88.2 Allergy status to sulfonamides; Z88.7 Allergy status to serum and vaccine; Z88.8 Allergy status to other drugs, medicaments and biological substances; Z79.01 Long term (current) use of anticoagulants; Z79.82 Long term (current) use of aspirin; Z79.891 Long term (current) use of opiate analgesic; Z79.899 Other long term (current) drug therapy; Z86.14 Personal history of Methicillin resistant Staphylococcus aureus infection; Z86.718 Personal history of other venous thrombosis and embolism; Z85.41 Personal history of malignant neoplasm of cervix uteri; Z85.3 Personal history of malignant neoplasm of breast; Z92.21 Personal history of antineoplastic chemotherapy; Z90.710 Acquired absence of both cervix and uterus; Z98.890 Other specified postprocedural states; Z95.828 Presence of other vascular implants and grafts; X58.XXXA Exposure to other specified factors, initial encounter
CPT/HCPCS: 36415; 80053; 85025; 85610; 85730; 87040; 96361; 96374; 96375; 99284

== ENCOUNTER 2018-04-07 16:51 | Inpatient (IN) | payer MEDICARE, OTHER ==
[2018-04-07] MEDS ORDERED: VANCOMYCIN IV PER PHARMACY 1 EACH MISC MISCELLANE PRN (17:08)
[2018-04-07] MEDS ORDERED: cefTRIAXone 2,000 MG in SODIUM CHLORIDE 0.9% 100 ML IVPB STA (17:08)
[2018-04-07] MEDS ORDERED: SODIUM CHLORIDE 0.9% 1,000 ML IV STA (17:08)
[2018-04-07] MEDS ORDERED: VANCOMYCIN 1,500 MG in SODIUM CHLORIDE 0.9% 250 ML IVPB STA (18:00)
--- NOTE | 2018-04-07 18:06 | ED ---
General Adult HPI - General Chief complaint: Skin/Abscess/Foreign Body Stated complaint: arm infection Time Seen by Provider: 04/07/18 17:03 Source: patient, family, RN notes reviewed, old records reviewed Mode of arrival: ambulatory Limitations: no limitations - History of Present Illness Initial comments: This is a 53-year-old female the ER for evaluation. This patient presents today for evaluation regarding left upper extremity cellulitis. Patient is developed cellulitis after having pork and Mediport placement. Patient's been on outpatient treatment with no improvement. Patient sent in the ER for evaluation regarding continued pain and swelling and redness of right left upper extremity. Patient has had outpatient ultrasound was negative for DVT - Related Data Home Medications Medication Instructions Recorded Confirmed Propranolol HCl [Inderal LA] 160 mg PO HS 03/07/14 04/07/18 Topiramate [Topamax] 400 mg PO HS 03/07/14 04/07/18 Aspirin 325 mg PO DAILY 01/09/15 04/07/18 Lacosamide [Vimpat] 150 mg PO BID 07/02/16 04/07/18 Levothyroxine Sodium [Synthroid] 100 mcg PO DAILY 07/02/16 04/07/18 Cyanocobalamin [Vitamin B-12 1,000 mcg SQ Q30D 08/05/16 04/07/18 Injection] Potassium Chloride ER [K-Dur 10] 10 meq PO DAILY 06/13/17 04/07/18 Omeprazole [PriLOSEC] 40 mg PO DAILY 07/07/17 04/07/18 tiZANidine HCL [Zanaflex] 4 mg PO BID 07/07/17 04/07/18 Docusate [Colace] 100 mg PO DAILY 02/03/18 04/07/18 Haloperidol [Haldol] 0.5 mg PO BID PRN 02/03/18 04/07/18 LORazepam [Ativan] 0.5 mg PO Q4H PRN 02/03/18 04/07/18 MORPHINE ORAL TRENT CONC 20mg/mL 10 mg PO Q4H PRN 02/03/18 04/07/18 [Roxanol Oral Soln Conc 20MG/ML] Rivaroxaban [Xarelto] 20 mg PO DAILY 02/03/18 04/07/18 Sennosides [Senokot] 8.6 mg PO HS 02/03/18 04/07/18 fentaNYL 12MCG/HR PATCH [Duragesic 1 patch TRANSDERM Q72H 02/03/18 04/07/18 12MCG/HR] fentaNYL 25MCG/HR PATCH [Duragesic 1 patch TRANSDERM Q72H 02/03/18 04/07/18 25MCG/HR] traZODone HCL 50 mg PO HS 02/03/18 04/07/18 Acetaminophen-Codeine 300-30mg 1 tab PO Q8HR PRN 04/02/18 04/07/18 [Tylenol w/codeine #3] Lidocaine 5% Patch [Lidoderm] 1 patch TOPICAL Q12H 04/02/18 04/07/18 Magnesium Oxide [Mag-Ox] 125 mg PO Q12H 04/02/18 04/07/18 Melatonin 5 mg PO HS 04/02/18 04/07/18 Oxybutynin ER [Ditropan Xl] 10 mg PO TID 04/02/18 04/07/18 Propylene Glycol/Peg 400 [Systane 1 drop BOTH EYES Q12H 04/02/18 04/07/18 Ultra 0.4-0.3% Eye Drp] Previous Rx's Medication Instructions Recorded Temazepam [Restoril] 15 mg PO HS PRN cap 07/28/17 Allergies Allergy/AdvReac Type Severity Reaction Status Date / Time guaifenesin [From Entex LA] Allergy Anaphylaxis Verified 04/07/18 17:20 phenylephrine HCl Allergy Anaphylaxis Verified 04/07/18 17:20 [From Entex LA] phenylpropanolamine HCl Allergy Anaphylaxis Verified 04/07/18 17:20 [From Entex LA] Sulfa (Sulfonamide Allergy Anaphylaxis Verified 04/07/18 17:20 Antibiotics) tuberculin, purified protein Allergy Anaphylaxis Verified 04/07/18 17:20 deriva [Tuberculin,Purif.Prot.Deriv.] pseudoephedrine HCl AdvReac Swelling Verified 04/07/18 17:20 [From Mucinex D] Review of Systems ROS Statement: Those systems with pertinent positive or pertinent negative responses have been documented in the HPI. ROS Other: All systems not noted in ROS Statement are negative. Past Medical History Past Medical History: Cancer, COPD, CVA/TIA, Deep Vein Thrombosis (DVT), Hyperlipidemia, Myocardial Infarction (ME), Neurologic Disorder, Seizure Disorder, Thyroid Disorder, Vascular Disorder Additional Past Medical History / Comment(s): Multiple Sclerosis - HAS SUPRAPUBIC CATH. IN W/C. Left-Sided PARALYSIS R/T To Stroke September 2014, LAST SEIZURE UNKNOWN, DVT approx. 1 month ago(December 2017),. PVD. Migraines. BORN W / HEART MALFORMATION DEFECT,cervical cancer 1997-had surg & chemo,. RT BREAST CA 2003. pt stated "cath was changed during last admission , oxygen prn @ 3l Last Myocardial Infarction Date:: 2004 History of Any Multi-Drug Resistant Organisms: MRSA Date of last positivie culture/infection: 06/14/15 MDRO Source:: sputum Past Surgical History: Cholecystectomy, Heart Catheterization, Hysterectomy, Tonsillectomy Additional Past Surgical History / Comment(s): sinus surgery FOR DEVIATED SEPTUM ; Rt breast lumpectomy; Rt knee surgery x 4 ARTHROSCOPIES AND ACL RECONSTRUCTION; LAPAROSCOPY, EXC ADHESIONS. Suprapubic Cath. back surgery 2016 Past Anesthesia/Blood Transfusion Reactions: No Reported Reaction Additional Past Anesthesia/Blood Transfusion Reaction / Comment(s): CLAUSTROPHOBIA Past Psychological History: No Psychological Hx Reported Smoking Status: Former smoker Past Alcohol Use History: None Reported Past Drug Use History: None Reported - Past Family History Father Family Medical History: Diabetes Mellitus, Myocardial Infarction (ME), Osteoarthritis (OA) Additional Family Medical History / Comment(s): OPEN HEART SX Mother Family Medical History: Myocardial Infarction (ME) Additional Family Medical History / Comment(s): LAST YEAR IN HER SLEEP(ME) General Exam - General Exam Comments Initial Comments: Patient does have left upper extremity edema erythema and tenderness, warmth. Limitations: no limitations General appearance: alert, in no apparent distress Head exam: Present: atraumatic, normocephalic, normal inspection Eye exam: Present: normal appearance, PERRL, EOMI. Absent: scleral icterus, conjunctival injection, periorbital swelling ENT exam: Present: normal exam, mucous membranes moist Neck exam: Present: normal inspection. Absent: tenderness, meningismus, lymphadenopathy Respiratory exam: Present: normal lung sounds bilaterally. Absent: respiratory distress, wheezes, rales, rhonchi, stridor Cardiovascular Exam: Present: regular rate, normal rhythm, normal heart sounds. Absent: systolic murmur, diastolic murmur, rubs, gallop, clicks GI/Abdominal exam: Present: soft, normal bowel sounds. Absent: distended, tenderness, guarding, rebound, rigid Extremities exam: Present: normal inspection, full ROM, normal capillary refill. Absent: tenderness, pedal edema, joint swelling, calf tenderness Back exam: Present: normal inspection Neurological exam: Present: alert, oriented X3, CN II-XII intact Psychiatric exam: Present: normal affect, normal mood Skin exam: Present: warm, dry, intact, normal color. Absent: rash Course Vital Signs 04/07/18 04/07/18 17:03 18:49 Temperature 99 F 98.2 F Pulse Rate 89 88 Respiratory 18 16 Rate Blood Pressure 116/56 115/53 O2 Sat by Pulse 100 100 Oximetry - Reevaluation(s) Reevaluation #1: 04/07/18 19:04 Medical Record and outpatient paperwork is reviewed Medical Decision Making - Medical Decision Making 63 female the ER for evaluation of left upper extremity cellulitis. Erythema, patient be made for IV antibiotics and infectious disease consult - Lab Data Result diagrams: 04/07/18 17:39 04/07/18 17:39 Lab Results 04/07/18 04/07/18 04/07/18 Range/Units 17:39 17:39 17:39 WBC 6.0 (3.8-10.6) k/uL RBC 3.93 (3.80-5.40) m/uL Hgb 10.2 L (11.4-16.0) gm/dL Hct 34.0 (34.0-46.0) % MCV 86.6 (80.0-100.0) fL MCH 25.9 (25.0-35.0) pg MCHC 29.9 L (31.0-37.0) g/dL RDW 16.2 H (11.5-15.5) % Plt Count 536 H (150-450) k/uL Neutrophils % 80 % Lymphocytes % 11 % Monocytes % 6 % Eosinophils % 2 % Basophils % 0 % Neutrophils # 4.8 (1.3-7.7) k/uL Lymphocytes # 0.6 L (1.0-4.8) k/uL Monocytes # 0.4 (0-1.0) k/uL Eosinophils # 0.1 (0-0.7) k/uL Basophils # 0.0 (0-0.2) k/uL Hypochromasia Marked Anisocytosis Slight PT (9.0-12.0) sec INR (<1.2) APTT (22.0-30.0) sec Sodium 142 (137-145) mmol/L Potassium 5.1 (3.5-5.1) mmol/L Chloride 107 (98-107) mmol/L Carbon Dioxide 21 L (22-30) mmol/L Anion Gap 14 mmol/L BUN 11 (7-17) mg/dL Creatinine 0.73 (0.52-1.04) mg/dL Est GFR (CKD-EPI)AfAm >90 (>60 ml/min/1.73 sqM) Est GFR (CKD-EPI)NonAf >90 (>60 ml/min/1.73 sqM) Glucose 90 (74-99) mg/dL Plasma Lactic Acid Viktor 1.5 (0.7-2.0) mmol/L Calcium 8.9 (8.4-10.2) mg/dL Phosphorus 4.7 H (2.5-4.5) mg/dL Magnesium 2.1 (1.6-2.3) mg/dL Total Bilirubin 0.6 (0.2-1.3) mg/dL AST 32 (14-36) U/L ALT 9 (9-52) U/L Alkaline Phosphatase 124 (38-126) U/L Total Protein 8.3 H (6.3-8.2) g/dL Albumin 3.6 (3.5-5.0) g/dL 04/07/18 Range/Units 17:39 WBC (3.8-10.6) k/uL RBC (3.80-5.40) m/uL Hgb (11.4-16.0) gm/dL Hct (34.0-46.0) % MCV (80.0-100.0) fL MCH (25.0-35.0) pg MCHC (31.0-37.0) g/dL RDW (11.5-15.5) % Plt Count (150-450) k/uL Neutrophils % % Lymphocytes % % Monocytes % % Eosinophils % % Basophils % % Neutrophils # (1.3-7.7) k/uL Lymphocytes # (1.0-4.8) k/uL Monocytes # (0-1.0) k/uL Eosinophils # (0-0.7) k/uL Basophils # (0-0.2) k/uL Hypochromasia Anisocytosis PT 10.8 (9.0-12.0) sec INR 1.1 (<1.2) APTT 25.1 (22.0-30.0) sec Sodium (137-145) mmol/L Potassium (3.5-5.1) mmol/L Chloride (98-107) mmol/L Carbon Dioxide (22-30) mmol/L Anion Gap mmol/L BUN (7-17) mg/dL Creatinine (0.52-1.04) mg/dL Est GFR (CKD-EPI)AfAm (>60 ml/min/1.73 sqM) Est GFR (CKD-EPI)NonAf (>60 ml/min/1.73 sqM) Glucose (74-99) mg/dL Plasma Lactic Acid Viktor (0.7-2.0) mmol/L Calcium (8.4-10.2) mg/dL Phosphorus (2.5-4.5) mg/dL Magnesium (1.6-2.3) mg/dL Total Bilirubin (0.2-1.3) mg/dL AST (14-36) U/L ALT (9-52) U/L Alkaline Phosphatase (38-126) U/L Total Protein (6.3-8.2) g/dL Albumin (3.5-5.0) g/dL Disposition Clinical Impression: Cellulitis of left upper extremity, Failure of outpatient treatment Disposition: ADMITTED IP TO THIS [facility] Condition: Fair Is patient prescribed a controlled substance at d/c from ED?: No Referrals: Keith Bowers MD [Primary Care Provider] - 1-2 days
[2018-04-07] MEDS ORDERED: MORPHINE SULFATE 4 MG/ML SYRINGE IVP STA (18:30)
[2018-04-07 18:47] LABS: Anisocytosis Slight; Basophils % (A) 0 %; Eosinophils # (A) 0.1 k/uL (0-0.7); Eosinophils % (A) 2 %; HGB 10.2 gm/dL (11.4-16.0); Hypochromasia Marked; Lymphocytes # (A) 0.6 k/uL (1.0-4.8); Lymphocytes % (A) 11 %; MCH 25.9 pg (25.0-35.0); MCHC 29.9 g/dL (31.0-37.0); MCV 86.6 fL (80.0-100.0); Mean Platelet Volume 7.2; Monocytes # (A) 0.4 k/uL (0-1.0); Monocytes % (A) 6 %; Neutrophils # (A) 4.8 k/uL (1.3-7.7); Neutrophils % (A) 80 %; Platelet Count 536 k/uL (150-450); RBC 3.93 m/uL (3.80-5.40); RDW 16.2 % (11.5-15.5)
[2018-04-07 18:50] LABS: ALT 9 U/L (9-52); AST 32 U/L (14-36); Albumin 3.6 g/dL (3.5-5.0); Alkaline Phosphatase 124 U/L (38-126); Anion Gap 14 mmol/L; Blood Urea Nitrogen 11 mg/dL (7-17); Calcium 8.9 mg/dL (8.4-10.2); Carbon Dioxide 21 mmol/L (22-30); Chloride 107 mmol/L (98-107); Glucose 90 mg/dL (74-99); INR 1.1 (<1.2); Magnesium 2.1 mg/dL (1.6-2.3); Partial Thromboplastin Time 25.1 sec (22.0-30.0); Phosphorus 4.7 mg/dL (2.5-4.5); Potassium 5.1 mmol/L (3.5-5.1); Prothrombin Time 10.8 sec (9.0-12.0); Sodium 142 mmol/L (137-145); Total Bilirubin 0.6 mg/dL (0.2-1.3); Total Protein 8.3 g/dL (6.3-8.2)
[2018-04-07 19:04] LABS: Creatine Kinase 25 U/L (30-135)
[2018-04-07 19:18] LABS: Creatine Kinase MB <0.2 ng/mL (0.0-2.4); Troponin I <0.012 ng/mL (0.000-0.034)
[2018-04-07] MEDS: MORPHINE SULFATE 4 MG/ML SYRINGE IVP PRN (21:54)
[2018-04-07] MEDS ORDERED: LORazepam 0.5 MG TAB PO PRN (22:05)
[2018-04-07] MEDS: traZODone HCL 50 MG TAB PO SCH (23:01)
[2018-04-07] MEDS: OXYBUTYNIN 10 MG TAB.ER.24 PO SCH (23:01)
[2018-04-07] MEDS: tiZANidine 4 MG TAB PO SCH (23:01)
[2018-04-07] MEDS: SENNOSIDES 8.6 MG TAB PO SCH ×2 (23:01→23:10)
[2018-04-07] MEDS: PROPRANOLOL LA 80 MG CAP.SA.24H PO SCH (23:01)
[2018-04-07] MEDS: MELATONIN 5 MG TABLET PO SCH (23:01)
[2018-04-07] MEDS: TOPIRAMATE 100 MG TAB PO SCH (23:02)
[2018-04-07] MEDS: TEMAZEPAM 15 MG CAP PO PRN (23:05)
[2018-04-07] MEDS: PROPYLENE GLYCOL BOTH EYES SCH (23:09)
[2018-04-07] MEDS: PEG BOTH EYES SCH (23:09)
[2018-04-07] MEDS: LACOSAMIDE 150 MG TABLET PO SCH (23:41)
[2018-04-08] MEDS: MORPHINE SULFATE 4 MG/ML SYRINGE IVP PRN ×2 (03:58→09:12)
[2018-04-08] MEDS: VANCOMYCIN 1,250 MG in SODIUM CHLORIDE 0.9% 250 ML IVPB SCH ×2 (06:09→18:19)
[2018-04-08] MEDS: LEVOTHYROXINE 100 MCG TAB PO SCH (06:10)
[2018-04-08] MEDS: OXYBUTYNIN 10 MG TAB.ER.24 PO SCH ×3 (09:08→21:27)
[2018-04-08] MEDS: ENOXAPARIN 40 MG/0.4 ML SYRINGE SQ SCH (09:08)
[2018-04-08] MEDS: tiZANidine 4 MG TAB PO SCH ×2 (09:09→21:28)
[2018-04-08] MEDS: PEG BOTH EYES SCH ×2 (09:11→21:34)
[2018-04-08] MEDS: PROPYLENE GLYCOL BOTH EYES SCH ×2 (09:11→21:34)
--- NOTE | 2018-04-08 10:40 | P.PN ---
Subjective Progress Note Date: 04/08/18 53-year-old female being seen at the request of the attending for a surgical eval for developing cellulitis with increase edema involving the left upper extremity. Patient stated the symptoms occurred 2 weeks ago when she was having a med port removed from the right anterior chest and placed in the left. Placement of a left MediPort for a malfunctioning MediPort was done 2017 She noted some swelling shortly after. stated the arm continue to swell and persist. states that she's been on antibiotics in the outpatient setting with no noted improvement. stated when she noted the initial swelling she did notify her PCP who did initiate antibiotic therapy. Patient had an outpatient ultrasound which showed no evidence of a DVT involving the left upper arm. It did show a pocket of fluid measuring 7 x 2 x 4 x 8. Patient has a swollen lump left upper arm The left upper arm is elevated but it is tender to the touch significant edema with erythema. Patient gives a history of having MS is wheelchair bound uses the port every 3 weeks for treatment Patient does have a significant history of MS wheelchair bed down, chronic lower back pain, COPD, hypothyroid, hyperlipidemia. Additionally patient has left leg weakness from a prior stroke. A seizure disorder, migraines, right breast cancer 2004, cervical cancer Past surgical history Cholecystectomy, heart catheterization, hysterectomy, tonsillectomy Objective - Vital Signs Vital signs: Vital Signs Temp 98.3 F 04/08/18 06:16 Pulse 90 04/08/18 06:35 Resp 18 04/08/18 06:35 BP 99/58 04/08/18 06:35 Pulse Ox 94 L 04/08/18 06:35 Intake & Output 04/07/18 04/08/18 04/08/18 18:59 06:59 18:59 Output Total 1275 Balance -1275 Weight 73.482 kg Output: Urine 1275 Other: Voiding Method Indwelling Catheter - Exam GENERAL APPEARANCE: 53 -year-old female patient is alert, oriented x 3 in no acute distress. VITAL SIGNS: Reviewed HEENT: Head is normocephalic and atraumatic. Pupils are equal and reactive. The nares are patent. Oropharynx is clear without lesions. NECK: Supple without lymphadenopathy. Traches midline. HEART: S1, S2. Regular rate and rhythm. No murmur noted denying chest pain LUNGS: No crackles or wheezes are heard. Adequate air movement bilaterally on room air ABDOMEN: Soft, nontender, nondistended with good bowel sounds. No peritoneal signs. No palpable organomegaly or masses. Suprapubic catheter in place omi urine EXTREMITIES: Left upper arm significant edema tender to the touch warmth erythema . Trace pedal edema no calf tenderness left extremity weakness Neurological awake alert oriented 3 left side weakness - Labs CBC & Chem 7: 04/07/18 17:39 04/07/18 17:39 Labs: Abnormal Lab Results - Last 24 Hours (Table) 04/07/18 04/07/18 04/07/18 Range/Units 17:39 17:39 17:39 Hgb 10.2 L (11.4-16.0) gm/dL MCHC 29.9 L (31.0-37.0) g/dL RDW 16.2 H (11.5-15.5) % Plt Count 536 H (150-450) k/uL Lymphocytes # 0.6 L (1.0-4.8) k/uL Carbon Dioxide 21 L (22-30) mmol/L Phosphorus 4.7 H (2.5-4.5) mg/dL Total Creatine Kinase 25 L (30-135) U/L Total Protein 8.3 H (6.3-8.2) g/dL Assessment and Plan Assessment: Impression Status post 02/09/2018 malfunction MediPort placement left subclavian after removing port from right side Present on admission cellulitis left upper extremity failed outpatient treatment Dopplers to the left upper extremity done on April 02 show fluid measuring 7.2 x 4.8 Wheelchair bedbound from MS History of a prior CVA with left-sided weakness Present on admission hyperkalemic A prior DVT Plan We'll repeat an ultrasound of the left upper extremity to evaluate the pocket of fluid Xarelto on hold last dose on the 07 of April Continue IV antibiotics Rocephin as ordered DVT and GI prophylaxis pain control Further surgical recommendations pending will follow with you Incision and drainage of the left upper extremities abscess timing will need to be determined The above impression and plan of care have been discussed and directed by signing physician. Odette Vo nurse practitioner acting as scribe for signing physician.
[2018-04-08] MEDS ORDERED: HALOPERIDOL 0.5 MG TAB PO PRN (10:42)
[2018-04-08] MEDS ORDERED: LACTULOSE 20 GM/30 ML CUP PO PRN (10:42)
[2018-04-08] MEDS: LACOSAMIDE 150 MG TABLET PO SCH ×2 (11:26→21:33)
[2018-04-08] MEDS: SODIUM CHLORIDE 0.9% 1,000 ML IV SCH (11:27)
[2018-04-08] MEDS: DOCUSATE 100 MG CAP PO SCH (11:49)
[2018-04-08] MEDS: LIDOCAINE 5% PATCH TOPICAL SCH ×2 (11:49→22:20)
[2018-04-08] MEDS: MAGNESIUM OXIDE 400 MG TAB PO SCH ×2 (11:50→21:29)
[2018-04-08] MEDS: oxyCODONE-APAP 10-325MG 1 EACH TAB PO PRN ×2 (12:08→18:19)
--- NOTE | 2018-04-08 13:22 | P.GSCN ---
History of Present Illness Consult date: 04/07/18 Reason for Consult: Cellulitis abscess left upper History of present illness: 53-year-old female being seen at the request of the attending for a surgical eval after patient stated she developed significant edema with tenderness redness to the left upper arm. Patient stated that she had a med port changed that was malfunctioning 2 weeks ago moved from the right anterior chest wall placed on the left. Stated thereafter she developed the swelling in the arm. Notified her PCP who did put her on antibiotics there was no noted improvement came into the emergency room to be evaluated. Did have Doppler study done of the left upper arm on April 02 it showed no evidence of a DVT. It did show a pocket of fluid measuring 7 a 2 x 4 x 8. Recent stated the left upper arm was very tender to the touch. At the time of my exam at the bedside there was significant tenderness to the left upper arm warm to touch with a firm area noted Patient does have a significant history of MS wheelchair bed down, chronic lower back pain, COPD, hypothyroid, hyperlipidemia. Additionally patient has left leg weakness from a prior stroke. A seizure disorder, migraines, right breast cancer 2003, cervical cancer Past surgical history Cholecystectomy, heart catheterization, hysterectomy, tonsillectomy Review of Systems Essentially unremarkable except as mentioned in the present on Past Medical History Past Medical History: Cancer, COPD, CVA/TIA, Deep Vein Thrombosis (DVT), Hyperlipidemia, Myocardial Infarction (HI), Neurologic Disorder, Seizure Disorder, Thyroid Disorder, Vascular Disorder Additional Past Medical History / Comment(s): Multiple Sclerosis - HAS SUPRAPUBIC CATH-pt stated was changed last 03-27-18. pt suffered stroke in september 2014 (which affected non dominant lt side) pt stated now she is able to use lt arm,hand.lt leg paralysis,able to wiggle toes a bit, wears lt leg brace. pt stated she is able to stand and walk w/ walker short distance by leading w/rt leg and drags lt foot-but mostly uses power chair .LAST SEIZURE - 2017 DVT lt leg approx. (December 2017),. PVD. Migraines. BORN W/ HEART MALFORMATION DEFECT,cervical cancer 1997-had surg & chemo,. RT BREAST CA - lumpectomy only [id number]. rt leg cellulitis-since resolved Last Myocardial Infarction Date:: 2004 History of Any Multi-Drug Resistant Organisms: MRSA Year Discovered:: 06/14/15 MDRO Source:: sputum Past Surgical History: Back Surgery, Cholecystectomy, Heart Catheterization, Hysterectomy, Tonsillectomy Additional Past Surgical History / Comment(s): sinus surgery FOR DEVIATED SEPTUM ; Rt breast lumpectomy; Rt knee surgery x 4 ARTHROSCOPIES AND ACL RECONSTRUCTION; LAPAROSCOPY, EXC ADHESIONS. Suprapubic Cath.07-28-17 egd w/ stoamch bx-neg, lexiscan stress test. back surgery .lt subclavian port a cath implanted on 01-13-18 pt stated "it's never been accessed". Past Anesthesia/Blood Transfusion Reactions: No Reported Reaction Additional Past Anesthesia/Blood Transfusion Reaction / Comm: CLAUSTROPHOBIA Smoking Status: Former smoker - Past Family History Father Family Medical History: Diabetes Mellitus, Myocardial Infarction (HI), Osteoarthritis (OA) Additional Family Medical History / Comment(s): OPEN HEART SX Mother Family Medical History: Myocardial Infarction (HI) Additional Family Medical History / Comment(s): LAST YEAR IN HER SLEEP(HI) Medications and Allergies Home Medications Medication Instructions Recorded Confirmed Type Propranolol HCl [Inderal LA] 160 mg PO HS 03/07/14 04/07/18 History Topiramate [Topamax] 400 mg PO HS 03/07/14 04/07/18 History Aspirin 325 mg PO DAILY 01/09/15 04/07/18 History Lacosamide [Vimpat] 150 mg PO BID 07/02/16 04/07/18 History Levothyroxine Sodium [Synthroid] 100 mcg PO DAILY 07/02/16 04/07/18 History Cyanocobalamin [Vitamin B-12 1,000 mcg SQ Q30D 08/05/16 04/07/18 History Injection] Potassium Chloride ER [K-Dur 10] 10 meq PO DAILY 06/13/17 04/07/18 History Omeprazole [PriLOSEC] 40 mg PO DAILY 07/07/17 04/07/18 History tiZANidine HCL [Zanaflex] 4 mg PO BID 07/07/17 04/07/18 History Temazepam [Restoril] 15 mg PO HS PRN cap 07/28/17 04/07/18 Rx Docusate [Colace] 100 mg PO DAILY 02/03/18 04/07/18 History Haloperidol [Haldol] 0.5 mg PO BID PRN 02/03/18 04/07/18 History LORazepam [Ativan] 0.5 mg PO Q4H PRN 02/03/18 04/07/18 History Rivaroxaban [Xarelto] 20 mg PO DAILY 02/03/18 04/07/18 History Sennosides [Senokot] 8.6 mg PO HS 02/03/18 04/07/18 History fentaNYL 12MCG/HR PATCH [Duragesic 1 patch TRANSDERM Q72H 02/03/18 04/07/18 History 12MCG/HR] fentaNYL 25MCG/HR PATCH [Duragesic 1 patch TRANSDERM Q72H 02/03/18 04/07/18 History 25MCG/HR] traZODone HCL 50 mg PO HS 02/03/18 04/07/18 History Acetaminophen-Codeine 300-30mg 1 tab PO Q8HR PRN 04/02/18 04/07/18 History [Tylenol w/codeine #3] Lidocaine 5% Patch [Lidoderm] 1 patch TOPICAL Q12H 04/02/18 04/07/18 History Magnesium Oxide [Mag-Ox] 125 mg PO Q12H 04/02/18 04/07/18 History Melatonin 5 mg PO HS 04/02/18 04/07/18 History Oxybutynin ER [Ditropan Xl] 10 mg PO TID 04/02/18 04/07/18 History Propylene Glycol/Peg 400 [Systane 1 drop BOTH EYES Q12H 04/02/18 04/07/18 History Ultra 0.4-0.3% Eye Drp] Lactulose 20 gm PO DAILY PRN 04/07/18 04/07/18 History Omeprazole [PriLOSEC] 40 mg PO DAILY 04/07/18 04/07/18 History oxyCODONE-APAP 10-325MG [Percocet 1 tab PO Q6HR PRN 04/07/18 04/07/18 History 10-325 mg] Allergies Allergy/AdvReac Type Severity Reaction Status Date / Time guaifenesin [From Entex LA] Allergy Anaphylaxis Verified 04/07/18 17:20 phenylephrine HCl Allergy Anaphylaxis Verified 04/07/18 17:20 [From Entex LA] phenylpropanolamine HCl Allergy Anaphylaxis Verified 04/07/18 17:20 [From Entex LA] Sulfa (Sulfonamide Allergy Anaphylaxis Verified 04/07/18 17:20 Antibiotics) tuberculin, purified protein Allergy Anaphylaxis Verified 04/07/18 17:20 deriva [Tuberculin,Purif.Prot.Deriv.] pseudoephedrine HCl AdvReac Swelling Verified 04/07/18 17:20 [From Mucinex D] Surgical - Exam Vital Signs Temp Pulse Resp BP Pulse Ox 99 F 89 18 116/56 100 04/07/18 17:03 04/07/18 17:03 04/07/18 17:03 04/07/18 17:03 04/07/18 17:03 GENERAL APPEARANCE: 53-year-old female patient is alert, oriented, in no acute distress. Sitting up in bed VITAL SIGNS: Reviewed HEENT: Head is normocephalic and atraumatic. Pupils are equal and reactive. The nares are patent. Oropharynx is clear without lesions. NECK: Supple without lymphadenopathy. Traches midline. HEART: S1, S2. Regular rate and rhythm. Denies chest pain LUNGS: No crackles or wheezes are heard. No shortness breath noted no cough noted adequate air movement bilaterally the sats are documented 94% ABDOMEN: Soft, nontender, nondistended with good bowel sounds. No peritoneal signs. No palpable organomegaly or masses. Suprapubic catheter in place EXTREMITIES: . Left-sided weakness left upper arm significant redness tenderness and edema noted tender to the touch NEUROLOGICAL: No focal deficits. Strength and sensation are grossly intact. Results - Labs 04/07/18 17:39 04/07/18 17:39 Abnormal Lab Results - Last 24 Hours (Table) 04/07/18 04/07/18 04/07/18 Range/Units 17:39 17:39 17:39 Hgb 10.2 L (11.4-16.0) gm/dL MCHC 29.9 L (31.0-37.0) g/dL RDW 16.2 H (11.5-15.5) % Plt Count 536 H (150-450) k/uL Lymphocytes # 0.6 L (1.0-4.8) k/uL Carbon Dioxide 21 L (22-30) mmol/L Phosphorus 4.7 H (2.5-4.5) mg/dL Total Creatine Kinase 25 L (30-135) U/L Total Protein 8.3 H (6.3-8.2) g/dL Diabetes panel 04/07/18 Range/Units 17:39 Sodium 142 (137-145) mmol/L Potassium 5.1 (3.5-5.1) mmol/L Chloride 107 (98-107) mmol/L Carbon Dioxide 21 L (22-30) mmol/L BUN 11 (7-17) mg/dL Creatinine 0.73 (0.52-1.04) mg/dL Glucose 90 (74-99) mg/dL Calcium 8.9 (8.4-10.2) mg/dL AST 32 (14-36) U/L ALT 9 (9-52) U/L Alkaline Phosphatase 124 (38-126) U/L Total Protein 8.3 H (6.3-8.2) g/dL Albumin 3.6 (3.5-5.0) g/dL Calcium panel 04/07/18 Range/Units 17:39 Calcium 8.9 (8.4-10.2) mg/dL Phosphorus 4.7 H (2.5-4.5) mg/dL Albumin 3.6 (3.5-5.0) g/dL Pituitary panel 04/07/18 Range/Units 17:39 Sodium 142 (137-145) mmol/L Potassium 5.1 (3.5-5.1) mmol/L Chloride 107 (98-107) mmol/L Carbon Dioxide 21 L (22-30) mmol/L BUN 11 (7-17) mg/dL Creatinine 0.73 (0.52-1.04) mg/dL Glucose 90 (74-99) mg/dL Calcium 8.9 (8.4-10.2) mg/dL Adrenal panel 04/07/18 Range/Units 17:39 Sodium 142 (137-145) mmol/L Potassium 5.1 (3.5-5.1) mmol/L Chloride 107 (98-107) mmol/L Carbon Dioxide 21 L (22-30) mmol/L BUN 11 (7-17) mg/dL Creatinine 0.73 (0.52-1.04) mg/dL Glucose 90 (74-99) mg/dL Calcium 8.9 (8.4-10.2) mg/dL Total Bilirubin 0.6 (0.2-1.3) mg/dL AST 32 (14-36) U/L ALT 9 (9-52) U/L Alkaline Phosphatase 124 (38-126) U/L Total Protein 8.3 H (6.3-8.2) g/dL Albumin 3.6 (3.5-5.0) g/dL Assessment and Plan Assessment: Impression Status post 02/09/2018 malfunction MediPort placement left subclavian after removing port from right side Present on admission cellulitis left upper extremity failed outpatient treatment Dopplers to the left upper extremity done on April 02 show fluid measuring 7.2 x 4.8 Wheelchair bedbound from MS History of a prior CVA with left-sided weakness Present on admission hyperkalemic A prior DVT on Xarelto Plan Xarelto on hold last dose on the 07 of April Continue IV antibiotics Rocephin as ordered DVT and GI prophylaxis pain control Further surgical recommendations pending will follow with you Incision and drainage of the left upper extremities abscess timing will need to be determined after reviewing ultrasound of the upper extremity to evaluate the proximal fluid Surgical consultation note dictated for The above impression and plan of care have been discussed and directed by signing physician. Odette Vo nurse practitioner acting as scribe for signing physician.
[2018-04-08] MEDS ORDERED: ZOLPIDEM 5 MG TAB PO PRN (13:38)
--- NOTE | 2018-04-08 14:21 | CONS ---
CONSULTATION DATE OF SERVICE: 04/08/2018 REASON FOR CONSULTATION: Left lower extremity cellulitis/sepsis. HISTORY OF PRESENT ILLNESS: The patient is a 53-year-old female who did have a MediPort placed by Dr. García 02/09/2018. Patient has been complaining of some discomfort to the left upper extremity with some swelling, this has been going on for a few weeks and now patient does have a dull aching pain to the left upper extremity with intensity about 6 to 7/10, and no radiation. Patient recently started having more swelling and redness to that area for with the patient did have an ultrasound completed on 04/02/2018, which did show a fluid pocket seen measuring 7.2 x 2.4 x 4.8 cm. The patient subsequently has presented to the [facility] ER where the patient has been evaluated by the ER physician. Patient has been admitted to hospital for drainage of this fluid collection. She was started. She has been started on vancomycin, Rocephin. I was consulted for further recommendation of antibiotic therapy. Patient was on Xarelto, has been put on hold as of last night. REVIEW OF SYSTEMS: CONSTITUTIONAL: Positive for some weakness but denies hunger. EYES: No complaint. ENT: No complaint. RESPIRATORY: No complaint. CARDIOVASCULAR: No complaint. GENITOURINARY: No complaint. GASTROINTESTINAL: No complaint. MUSCULOSKELETAL: As per HPI. INTEGUMENTARY: As per HPI. PSYCHOLOGICAL: No complaint. ENDOCRINE: No complaint. NEUROLOGIC:: No complaint. PAST MEDICAL HISTORY: Significant for MS wheelchair-bound, chronic back pain, COPD, hypothyroidism, hyperlipidemia, CVA, seizure disorder, migraines, right breast cancer, cervical cancer. PAST SURGICAL HISTORY: Cholecystectomy, left heart catheterization, hysterectomy, tonsillectomy, and the MediPort placement. SOCIAL HISTORY: Denies smoking, drinking or drug use. FAMILY HISTORY: No pertinent findings noticed. ALLERGIES: To SULFA, ANTIBIOTICS, PHENYLEPHRINE. MEDICATION: Currently include the patient is on Tylenol, Rocephin Colace, Lovenox, Duragesic patch, Haldol with PAD, lactulose, Synthroid, Lidoderm, Ativan, Mag oxide, melatonin, morphine sulfate, Inderal, Senokot, Restoril, vancomycin pharmacy to dose and Desyrel. PHYSICAL EXAMINATION: Blood pressure 110/72 with a pulse of 96, temperature 98.5, she is 96% on room air. General description is a middle aged female, lying in bed in no distress. No tachypnea or accessory muscle for respiration use. HEENT: Shows slight pallor. No scleral icterus. Oral mucosa is dry. No pharyngeal erythema or thrush neck trachea central no thyromegaly. LUNGS: Unlabored breathing clear to auscultation anteriorly. No wheeze or crackle heart S1, S2. Regular rate. ABDOMEN: Soft, no tenderness, no guarding or rigidity. EXTREMITIES: No edema of the feet. Examination of the left upper extremity is area of swelling, redness and erythema which is tender to touch, no drainage. NEUROLOGICAL: Patient is awake, alert, oriented x3 affect normal. LABS: Hemoglobin is 10.2, white count 6.0 with a BUN of 11, creatinine 0.73. Electrolytes have been normal with normal ultrasound report as mentioned above. DIAGNOSTIC IMPRESSION AND PLAN: Patient with left upper extremity pain, swelling and redness with concern for possible underlying hematoma which is an abscess. Hematoma or seroma may left but infection not entirely excluded, likely from a gram-positive skin guerrero. The underlying gram- negative infection is less likely. PLAN: 1. Mj the area of redness. 2. Await surgical drainage of this area which should be sent for culture. 3. Will follow up on clinical condition as well as cultures to further adjust medication if needed. Thank you for this consultation, will follow this patient along with you. MMODL / IJN: [id number] /
--- NOTE | 2018-04-08 14:50 | US ---
EXAMINATION TYPE: US extremity nonvasc mass LT DATE OF EXAM: 04/08/2018 COMPARISON: Ultrasound 04/02/2018 CLINICAL HISTORY: 53-year-old female Left arm lump fluid. LEFT medial upper arm area of pain, swellin g and redness x 2 months, exam done portable. TECHNIQUE: Targeted sonographic examination of the site of patient's swelling and redness medial uppe r left arm. Findings: Veneer Lathe Operator notes: Left arm area of concern: 11.5 x 3.5 x 5.2cm complex fluid collection. On 8, this was measured at 7.2 x 2.4 x 4.8 cm. Internal echoes are felt to be artifactual. This may be along the superficial fascia or within the cruz perficial portion of the musculature. IMPRESSION: The patient's elongated collection along the medial upper arm measures larger now at 11.5 x 5.2 cm ve rsus 7.2 x 4.8 cm on 04/02/2018. The exact etiology is unclear. Careful correlation with patient's his tory is recommended (such as for trauma, infection, use of blood thinners, etc.). Recommend orthopedi c referral for further evaluation. Consider contrast enhanced CT or MRI to further localize and emily cterize this lesion.
--- NOTE | 2018-04-08 15:17 | P.HPIM ---
History of Present Illness H&P Date: 04/08/18 Chief Complaint: Left arm cellulitis 53-year-old female who presented to the emergency room with a chief complaint of increased pain, erythema, and swelling to left upper extremity. Patient had a left subclavian Port-A-Cath inserted on 02/09/[address] García after her port on the right side malfunctioned. The patient states her port has been accessed since that time. She states a few weeks ago she began having redness and pain to the left upper extremity. She was placed on antibiotics, but did not see much improvement and presented to the emergency room for further evaluation. The patient did have a left upper extremity Doppler completed on 04/02/2018 which revealed a fluid pocket measuring 7.22.4 4.8 cm. The patient has a history of multiple sclerosis and utilizes a power chair most of the time. She resides with her at [facility]. 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 She has a suprapubic catheter which was last changed on 03/27/2018. She is a history of seizure disorder with a last reported seizure in July 2017, DVT in December 2017 , cervical cancer, and breast cancer. She also has a history of MRSA in her sputum in 2014. Laboratory data upon admission reveals a white count of 6.0. Hemoglobin 10.2. Platelet count 536. Sodium 142. Potassium 5.1. BUN 11. Creatinine 0.73. Lactic acid 1.5. Phosphorus 4.7. Magnesium 2.1. Troponin negative 1. The patient was started on ceftriaxone and vancomycin and admitted to the hospital. Consultations were placed to infectious disease and general surgery, Dr. García Review of Systems Those systems with pertinent positive or pertinent negative responses have been documented in the HPI Past Medical History Past Medical History: Cancer, COPD, CVA/TIA, Deep Vein Thrombosis (DVT), Hyperlipidemia, Myocardial Infarction ([place]), Neurologic Disorder, Seizure Disorder, Thyroid Disorder, Vascular Disorder Additional Past Medical History / Comment(s): Multiple Sclerosis - HAS SUPRAPUBIC CATH-pt stated was changed last 03-27-18. pt suffered stroke in september 2014 (which affected non dominant lt side) pt stated now she is able to use lt arm,hand.lt leg paralysis,able to wiggle toes a bit, wears lt leg brace. pt stated she is able to stand and walk w/ walker short distance by leading w/rt leg and drags lt foot-but mostly uses power chair .LAST SEIZURE 2017 DVT lt leg approx. (December 2017),. PVD. Migraines. BORN W/ HEART MALFORMATION DEFECT,cervical cancer 1997-had surg & chemo,. RT BREAST CA - lumpectomy only [id number]. rt leg cellulitis-since resolved Last Myocardial Infarction Date:: 2004 History of Any Multi-Drug Resistant Organisms: MRSA Date of last positivie culture/infection: 06/14/15 MDRO Source:: sputum Past Surgical History: Back Surgery, Cholecystectomy, Heart Catheterization, Hysterectomy, Tonsillectomy Additional Past Surgical History / Comment(s): sinus surgery FOR DEVIATED SEPTUM ; Rt breast lumpectomy; Rt knee surgery x 4 ARTHROSCOPIES AND ACL RECONSTRUCTION; LAPAROSCOPY, EXC ADHESIONS. Suprapubic Cath.07-28-17 egd w/ stoamch bx-neg, lexiscan stress test. back surgery .lt subclavian port a cath implanted on 01-13-18 pt stated "it's never been accessed". Past Anesthesia/Blood Transfusion Reactions: No Reported Reaction Additional Past Anesthesia/Blood Transfusion Reaction / Comment(s): CLAUSTROPHOBIA Smoking Status: Former smoker - Past Family History Father Family Medical History: Diabetes Mellitus, Myocardial Infarction ([place]), Osteoarthritis ([place]) Additional Family Medical History / Comment(s): OPEN HEART SX Mother Family Medical History: Myocardial Infarction ([place]) Additional Family Medical History / Comment(s): LAST YEAR IN HER SLEEP([place]) Medications and Allergies Home Medications Medication Instructions Recorded Confirmed Type Propranolol HCl [Inderal LA] 160 mg PO HS 03/07/14 04/07/18 History Topiramate [Topamax] 400 mg PO HS 03/07/14 04/07/18 History Aspirin 325 mg PO DAILY 01/09/15 04/07/18 History Lacosamide [Vimpat] 150 mg PO BID 07/02/16 04/07/18 History Levothyroxine Sodium [Synthroid] 100 mcg PO DAILY 07/02/16 04/07/18 History Cyanocobalamin [Vitamin B-12 1,000 mcg SQ Q30D 08/05/16 04/07/18 History Injection] Potassium Chloride ER [K-Dur 10] 10 meq PO DAILY 06/13/17 04/07/18 History Omeprazole [PriLOSEC] 40 mg PO DAILY 07/07/17 04/07/18 History tiZANidine HCL [Zanaflex] 4 mg PO BID 07/07/17 04/07/18 History Temazepam [Restoril] 15 mg PO HS PRN cap 07/28/17 04/07/18 Rx Docusate [Colace] 100 mg PO DAILY 02/03/18 04/07/18 History Haloperidol [Haldol] 0.5 mg PO BID PRN 02/03/18 04/07/18 History LORazepam [Ativan] 0.5 mg PO Q4H PRN 02/03/18 04/07/18 History Rivaroxaban [Xarelto] 20 mg PO DAILY 02/03/18 04/07/18 History Sennosides [Senokot] 8.6 mg PO HS 02/03/18 04/07/18 History fentaNYL 12MCG/HR PATCH [Duragesic 1 patch TRANSDERM Q72H 02/03/18 04/07/18 History 12MCG/HR] fentaNYL 25MCG/HR PATCH [Duragesic 1 patch TRANSDERM Q72H 02/03/18 04/07/18 History 25MCG/HR] traZODone HCL 50 mg PO HS 02/03/18 04/07/18 History Acetaminophen-Codeine 300-30mg 1 tab PO Q8HR PRN 04/02/18 04/07/18 History [Tylenol w/codeine #3] Lidocaine 5% Patch [Lidoderm] 1 patch TOPICAL Q12H 04/02/18 04/07/18 History Magnesium Oxide [Mag-Ox] 125 mg PO Q12H 04/02/18 04/07/18 History Melatonin 5 mg PO HS 04/02/18 04/07/18 History Oxybutynin ER [Ditropan Xl] 10 mg PO TID 04/02/18 04/07/18 History Propylene Glycol/Peg 400 [Systane 1 drop BOTH EYES Q12H 04/02/18 04/07/18 History Ultra 0.4-0.3% Eye Drp] Lactulose 20 gm PO DAILY PRN 04/07/18 04/07/18 History Omeprazole [PriLOSEC] 40 mg PO DAILY 04/07/18 04/07/18 History oxyCODONE-APAP 10-325MG [Percocet 1 tab PO Q6HR PRN 04/07/18 04/07/18 History 10-325 mg] Allergies Allergy/AdvReac Type Severity Reaction Status Date / Time guaifenesin [From Entex LA] Allergy Anaphylaxis Verified 04/07/18 17:20 phenylephrine HCl Allergy Anaphylaxis Verified 04/07/18 17:20 [From Entex LA] phenylpropanolamine HCl Allergy Anaphylaxis Verified 04/07/18 17:20 [From Entex LA] Sulfa (Sulfonamide Allergy Anaphylaxis Verified 04/07/18 17:20 Antibiotics) tuberculin, purified protein Allergy Anaphylaxis Verified 04/07/18 17:20 deriva [Tuberculin,Purif.Prot.Deriv.] pseudoephedrine HCl AdvReac Swelling Verified 04/07/18 17:20 [From Mucinex D] Physical Exam Vitals: Vital Signs Temp Pulse Pulse Resp BP BP Pulse Ox 04/08/18 06:35 90 18 99/58 94 L 04/08/18 06:16 98.3 F 04/08/18 00:12 99.5 F 96 18 110/72 96 04/07/18 20:12 98.5 F 88 15 108/54 98 04/07/18 18:49 98.2 F 88 16 115/53 100 04/07/18 17:03 99 F 89 18 116/56 100 Intake and Output 04/07/18 04/08/18 04/08/18 22:59 06:59 14:59 Output Total 1275 1000 Balance -1275 -1000 Output: Urine 1275 1000 Other: Voiding Method Indwelling Catheter Weight 73.482 kg GENERAL: This is a 53-year-old female in no apparent distress at the time of examination. Pleasant and cooperative. HEENT: Head is atraumatic, normocephalic. Pupils are equal, round, and reactive to light. Sclerae anicteric. Conjunctivae are clear. Mucus membranes of the mouth are moist. Neck is supple. RESPIRATORY: Clear to ausculation. No wheezes, rales, or rhonchi. No use of accessory muscles. Patient maintaining oxygen saturation greater than 92%. No chest wall tenderness is noted on palpation or with deep breathing. CARDIOVASCULAR: Regular rate and rhythm. S1 and S2 noted. No systolic or diastolic murmur auscultated. No JVD noted. No S3 or S4 noted. GASTROINTESTINAL: No distention noted. Abdomen soft and round. Normal active bowel sounds auscultated x 4 quadrants. No pain or tenderness noted upon palpation. INTEGUMENTARY: Erythema and edema noted to left upper extremity with firm mass noted. No cyanosis. No jaundice. No rashes noted. EXTREMITIES: Left-sided weakness. 2+ peripheral pulses. No evidence of peripheral edema. No calf tenderness noted. NEUROLOGIC: Cranial nerves II-XII intact. PSYCHIATRIC: Awake, alert, and oriented X 3. Appropriate affect. Intact judgement and insight. Results CBC & Chem 7: 04/07/18 17:39 04/07/18 17:39 Labs: Abnormal Lab Results - Last 24 Hours (Table) 04/07/18 04/07/18 04/07/18 Range/Units 17:39 17:39 17:39 Hgb 10.2 L (11.4-16.0) gm/dL MCHC 29.9 L (31.0-37.0) g/dL RDW 16.2 H (11.5-15.5) % Plt Count 536 H (150-450) k/uL Lymphocytes # 0.6 L (1.0-4.8) k/uL Carbon Dioxide 21 L (22-30) mmol/L Phosphorus 4.7 H (2.5-4.5) mg/dL Total Creatine Kinase 25 L (30-135) U/L Total Protein 8.3 H (6.3-8.2) g/dL Thrombosis Risk Factor Assmnt - Choose All That Apply Any of the Below Risk Factors Present?: Yes Each Factor Represents 1 point: Age 41-60 years, Medical pt on bed rest Other Risk Factors: No Other congenital or acquired thrombophilia - If yes, enter type in comment: No Thrombosis Risk Factor Assessment Total Risk Factor Score: 2 Thrombosis Risk Factor Assessment Level: Low Risk Assessment and Plan Plan: ASSESSMENT: Cellulitis of the left upper extremity, failed outpatient treatment, US from revealed fluid pocket measuring 7.22.44.8 cm. Status post left subclavian Mediport placement, 02/09/2018 due to malfunctioning right chest Mediport History of multiple sclerosis History of CVA with residual left-sided weakness History of seizure disorder History of DVT, on anticoagulation with Xarelto History of cervical cancer and breast cancer Mild hyperkalemia PLAN: Infectious disease on consult. Appreciate recommendations and input Continue antibiotics General surgery on consult. Appreciate recommendations and input Hold Xarelto and aspirin Home meds as appropriate Monitor labs GI prophylaxis: Protonix 40 mg PO Daily DVT prophylaxis Lovenox 40 mg subcu daily Monitor vital signs and address as appropriate Discharge planning: Patient to return to [facility] when stable Further recommendations pending patient's course Nurse practitioner note has been reviewed by physician. Signing provider agrees with the documented findings, assessment, and plan of care.
[2018-04-08] MEDS: Acetaminophen-Codeine 300-30mg TAB PO PRN (16:16)
[2018-04-08] MEDS ORDERED: RX INFO: IV CONTRAST WAS GIVEN 1 EACH MISC MISCELLANE PRN (16:26)
--- NOTE | 2018-04-08 19:01 | CT ---
EXAMINATION TYPE: CT upper extremity LT w con DATE OF EXAM: 04/08/2018 COMPARISON: None HISTORY: Fluid collection. CT DLP: 401.5 mGycm Automated exposure control for dose reduction was used. CONTRAST: Performed with IV Contrast, patient injected with 100 mL of Isovue M300. Technique Multiple axial sections were obtained from the level of the AC joint to the distal humerus with intra venous contrast. Findings THERE IS AN 11 X 3 CM OVAL-SHAPED FLUID COLLECTION WITHIN THE LEFT UPPER BICEPS MUSCLE ON THE ANTERIO R ASPECT. THIS EXTENDS UP TO ALMOST THE CORACOID PROCESS OF THE SCAPULA. I SEE NO PATHOLOGIC ENHANCEM ENT. VISUALIZED SCAPULA APPEARS INTACT. THERE IS A PATCHY DEMINERALIZATION OF THE SUPERIOR ASPECT OF THE HUMERAL HEAD THAT IS SUGGESTIVE OF A SOME ACUTE NONDISPLACED HUMERAL HEAD SUBARTICULAR FRACTURE. THE REMAINDER OF THE HUMERUS APPEARS INTACT. I SEE NO PATHOLOGIC ENHANCEMENT. FLUID COLLECTION IN THE BICEPS MUSCLE IS 15 CONSISTENT WITH SEROMA OR OLD HEMATOMA. IMPRESSION: There is elongated fluid collection within the biceps muscle consistent with intramuscular hematoma o r seroma. Abscess is not excluded entirely. There is an irregular defect across the subcapital aspect of the humeral head consistent with subacute fracture. No displacement.
[2018-04-08] MEDS: PROPRANOLOL LA 80 MG CAP.SA.24H PO SCH (21:27)
[2018-04-08] MEDS: traZODone HCL 50 MG TAB PO SCH (21:28)
[2018-04-08] MEDS: MELATONIN 5 MG TABLET PO SCH (21:28)
[2018-04-08] MEDS: TOPIRAMATE 100 MG TAB PO SCH (21:28)
[2018-04-08] MEDS: SENNOSIDES 8.6 MG TAB PO SCH (21:28)
[2018-04-08] MEDS: TEMAZEPAM 15 MG CAP PO PRN (21:48)
[2018-04-09] MEDS: oxyCODONE-APAP 10-325MG 1 EACH TAB PO PRN ×4 (02:53→21:40)
[2018-04-09] MEDS: LEVOTHYROXINE 100 MCG TAB PO SCH (06:11)
[2018-04-09] MEDS: VANCOMYCIN 1,250 MG in SODIUM CHLORIDE 0.9% 250 ML IVPB SCH ×2 (06:11→17:39)
[2018-04-09] MEDS: PANTOPRAZOLE 40 MG TABLET PO SCH (07:56)
[2018-04-09] MEDS: SODIUM CHLORIDE 0.9% 1,000 ML IV SCH (07:56)
[2018-04-09] MEDS: PROPYLENE GLYCOL BOTH EYES SCH ×2 (10:50→21:44)
[2018-04-09] MEDS: PEG BOTH EYES SCH ×2 (10:50→21:44)
--- NOTE | 2018-04-09 10:58 | P.PN ---
Progress Note - Text Progress Note Date: 04/09/18 The patient's CAT scan from yesterday shows evidence of an 11 cm fluid collection within the bicep muscle. The patient will undergo incision and drainage today.
[2018-04-09] MEDS ORDERED: IV FLUID CONTINUATION 1,000 ML IV ONE (11:48)
--- NOTE | 2018-04-09 12:19 | P.PN ---
Subjective Progress Note Date: 04/09/18 53-year-old female who presented to the emergency room with a chief complaint of increased pain, erythema, and swelling to left upper extremity. Patient had a left subclavian Port-A-Cath inserted on 02/09/[address] García after her port on the right side malfunctioned. The patient states her port has been accessed since that time. She states a few weeks ago she began having redness and pain to the left upper extremity. She was placed on antibiotics, but did not see much improvement and presented to the emergency room for further evaluation. The patient did have a left upper extremity Doppler completed on 04/02/2018 which revealed a fluid pocket measuring 7.22.4 4.8 cm. The patient has a history of multiple sclerosis and utilizes a power chair most of the time. She resides with her at [facility]. 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 She has a suprapubic catheter which was last changed on 03/27/2018. She is a history of seizure disorder with a last reported seizure in July 2017, DVT in December 2017 , cervical cancer, and breast cancer. She also has a history of MRSA in her sputum in 2014. Laboratory data upon admission reveals a white count of 6.0. Hemoglobin 10.2. Platelet count 536. Sodium 142. Potassium 5.1. BUN 11. Creatinine 0.73. Lactic acid 1.5. Phosphorus 4.7. Magnesium 2.1. Troponin negative 1. The patient was started on ceftriaxone and vancomycin and admitted to the hospital. Consultations were placed to infectious disease and general surgery, Dr. García 04/09/2018 Patient seen and examined at the bedside with Dr. Bowers. Patient underwent ultrasound of left upper arm yesterday revealing larger fluid collection measuring 11.[address] scan of left upper extremity completed yesterday revealing fluid collection within the biceps muscle consistent with intramuscular hematoma or seroma. Abscess is not excluded. There is irregular defect across the subcapital aspect of the humeral head consistent with subacute fracture. No displacement. Patient states she slept last night until 3am but has been awake since. She is requesting her Ambien dose to be increased. Patient denies shortness of breath or chest pain. Denies nausea or vomiting. Patient is scheduled for I&D of left upper extremity today Objective - Vital Signs Vital signs: Vital Signs Temp 98.7 F 04/09/18 07:34 Pulse 90 04/09/18 07:34 Resp 16 04/09/18 07:34 BP 97/59 04/09/18 07:34 Pulse Ox 96 04/09/18 07:34 Intake & Output 04/08/18 04/09/18 04/09/18 18:59 06:59 18:59 Intake Total 800 Output Total 2300 1700 Balance -2300 -900 Intake: Intake, IV Titration 800 Amount Sodium Chloride 0.9% 1, 400 000 ml @ 100 mls/hr IV . Q10H STA Rx#:[id number] Sodium Chloride 0.9% 1, 400 000 ml @ 50 mls/hr IV . Q20H RC Rx#:[id number] Output: Urine 2300 1700 Suprapubic 1700 Other: Voiding Method Indwelling Catheter # Bowel Movements 1 - Exam GENERAL: This is a 53-year-old female in no apparent distress at the time of examination. Pleasant and cooperative. HEENT: Head is atraumatic, normocephalic. Pupils are equal, round, and reactive to light. Sclerae anicteric. Conjunctivae are clear. Mucus membranes of the mouth are moist. Neck is supple. RESPIRATORY: Clear to ausculation. No wheezes, rales, or rhonchi. No use of accessory muscles. Patient maintaining oxygen saturation greater than 92%. No chest wall tenderness is noted on palpation or with deep breathing. CARDIOVASCULAR: Regular rate and rhythm. S1 and S2 noted. No systolic or diastolic murmur auscultated. No JVD noted. No S3 or S4 noted. GASTROINTESTINAL: No distention noted. Abdomen soft and round. Normal active bowel sounds auscultated x 4 quadrants. No pain or tenderness noted upon palpation. INTEGUMENTARY: Erythema and edema noted to left upper extremity with firm mass noted. No cyanosis. No jaundice. No rashes noted. EXTREMITIES: Left-sided weakness. 2+ peripheral pulses. No evidence of peripheral edema. No calf tenderness noted. NEUROLOGIC: Cranial nerves II-XII intact. PSYCHIATRIC: Awake, alert, and oriented X 3. Appropriate affect. Intact judgement and insight. - Labs CBC & Chem 7: 04/07/18 17:39 04/07/18 17:39 Labs: Microbiology - Last 24 Hours (Table) 04/07/18 17:39 Blood Culture - Preliminary Blood No Growth after 24 hours Assessment and Plan Plan: ASSESSMENT: Cellulitis of the left upper extremity, failed outpatient treatment, US from revealed fluid pocket measuring 7.22.44.8 cm, CT now reveals fluid collection is 11 x 3 cm Status post left subclavian Mediport placement, 02/09/2018 due to malfunctioning right chest Mediport History of multiple sclerosis History of CVA with residual left-sided weakness History of seizure disorder History of DVT, on anticoagulation with Xarelto History of cervical cancer and breast cancer Mild hyperkalemia Possible subacute fracture of left humeral head PLAN: Infectious disease on consult. Appreciate recommendations and input Continue antibiotics General surgery on consult. Appreciate recommendations and input Hold Xarelto and aspirin. Restart after procedure today. Patient scheduled for I&D today with Dr. García Increase Ambien to 10mg at HS Home meds as appropriate Monitor labs GI prophylaxis: Protonix 40 mg PO Daily DVT prophylaxis Lovenox 40 mg subcu daily Monitor vital signs and address as appropriate Discharge planning: Patient to return to [facility] when stable Further recommendations pending patient's course Nurse practitioner note has been reviewed by physician. Signing provider agrees with the documented findings, assessment, and plan of care.
[2018-04-09] MEDS ORDERED: MIDAZOLAM 2 MG/2 ML VIAL ONE (13:19)
[2018-04-09] MEDS ORDERED: fentaNYL (PF) 50 MCG/ML 2 ML AMP ONE (13:19)
[2018-04-09] MEDS ORDERED: LIDOCAINE 1%-EPI 1:100,000 20 ML VIAL SQ ONE (13:19)
[2018-04-09] MEDS ORDERED: PROPOFOL 10 MG/ML 20 ML VIAL IV ONE (13:19)
--- NOTE | 2018-04-09 13:50 | P.OP ---
Date of Procedure: 04/09/18 Preoperative Diagnosis: Left upper arm abscess Postoperative Diagnosis: Left upper arm abscess Procedure(s) Performed: Incision and drainage of left upper arm abscess Anesthesia: TINO Surgeon: Roland García Estimated Blood Loss (ml): 5 Pathology: other (Culture of abscess) Condition: stable Disposition: PACU Description of Procedure: The patient's placed on the operative table in the supine position. She received IV sedation. The left arm was prepped and draped usual sterile fashion. A skin incision made over the abscess area. And then using a 18- gauge needle CAT scan is found. Approximate 10 mL of fluid was aspirated was placed in culture tube and sent to pathology. The abscess cavity was entered. Another 25 mL of purulent fluid was removed. The abscess cavity is packed with wet-to-dry Kerlix dressing. Sterile dressings was applied. Patient tolerated procedure and sent to the recovery room in stable condition.
--- NOTE | 2018-04-09 13:58 | PN ---
PROGRESS NOTE DATE OF SERVICE: 04/09/2018 REASON FOR FOLLOWUP: Left upper arm cellulitis and possible abscess. INTERVAL HISTORY: The patient is currently afebrile. She has some pain into the left upper arm area, more of a dull aching pain with some control with pain medication. Denies having any chest pain, shortness of breath or cough. No abdominal pain. She is scheduled for I and D of this area this morning. PHYSICAL EXAMINATION: Blood pressure is 159/58, pulse of 76, temperature 98.7, she is 98% on room air. General description is a middle-aged female lying in bed in no distress. RESPIRATORY SYSTEM: Unlabored breathing, clear to auscultation anteriorly. HEART: S1, S2. Regular rhythm and rhythm. ABDOMEN: Soft, no tenderness. Left upper extremity with some swelling, minimal redness, slightly warm to touch. LABS: of 15.7. Blood cultures have been negative. DIAGNOSTIC IMPRESSION AND PLAN: Patient with acute left upper arm pain with left possible abscess. Waiting for the surgical drainage at which time deep culture should be obtained. Keep the patient on vancomycin. Will monitor and clinical infection closely. Continue supportive care. MMODL / IJN: [id number] /
[2018-04-09] MEDS: HYDROmorphone 1 MG/ML 1 ML SYRINGE IVP ONE ×2 (14:08→14:13)
[2018-04-09] MEDS: fentaNYL (PF) 50 MCG/ML 2 ML AMP IVP ONE ×2 (14:19→14:29)
[2018-04-09] MEDS: OXYBUTYNIN 10 MG TAB.ER.24 PO SCH ×3 (15:15→21:42)
[2018-04-09] MEDS: LIDOCAINE 5% PATCH TOPICAL SCH ×2 (15:19→22:19)
[2018-04-09] MEDS: tiZANidine 4 MG TAB PO SCH ×2 (15:19→22:07)
[2018-04-09] MEDS: MAGNESIUM OXIDE 400 MG TAB PO SCH ×2 (15:19→22:06)
[2018-04-09] MEDS: DOCUSATE 100 MG CAP PO SCH ×2 (15:19→15:30)
[2018-04-09] MEDS: ENOXAPARIN 40 MG/0.4 ML SYRINGE SQ SCH (15:20)
[2018-04-09] MEDS: LACOSAMIDE 150 MG TABLET PO SCH ×2 (15:25→22:08)
[2018-04-09] MEDS: TEMAZEPAM 15 MG CAP PO PRN (21:40)
[2018-04-09] MEDS: ZOLPIDEM 10 MG TAB PO PRN (21:40)
[2018-04-09] MEDS: MELATONIN 5 MG TABLET PO SCH (22:06)
[2018-04-09] MEDS: traZODone HCL 50 MG TAB PO SCH (22:07)
[2018-04-09] MEDS: PROPRANOLOL LA 80 MG CAP.SA.24H PO SCH (22:08)
[2018-04-09] MEDS: TOPIRAMATE 100 MG TAB PO SCH (22:09)
[2018-04-09] MEDS: SENNOSIDES 8.6 MG TAB PO SCH (22:10)
[2018-04-09] MEDS: Acetaminophen-Codeine 300-30mg TAB PO PRN (22:53)
[2018-04-10] MEDS: VANCOMYCIN 1,250 MG in SODIUM CHLORIDE 0.9% 250 ML IVPB SCH ×2 (05:50→19:28)
[2018-04-10] MEDS: SODIUM CHLORIDE 0.9% 1,000 ML IV SCH (05:52)
[2018-04-10] MEDS: LEVOTHYROXINE 100 MCG TAB PO SCH (05:53)
[2018-04-10] MEDS: oxyCODONE-APAP 10-325MG 1 EACH TAB PO PRN ×3 (06:41→21:28)
[2018-04-10] MEDS: DOCUSATE 100 MG CAP PO SCH (07:59)
[2018-04-10] MEDS: PEG BOTH EYES SCH ×2 (08:01→20:39)
[2018-04-10] MEDS: PROPYLENE GLYCOL BOTH EYES SCH ×2 (08:01→20:39)
[2018-04-10] MEDS: MAGNESIUM OXIDE 400 MG TAB PO SCH ×2 (08:02→20:36)
[2018-04-10] MEDS: LIDOCAINE 5% PATCH TOPICAL SCH ×2 (08:02→20:37)
[2018-04-10] MEDS: ENOXAPARIN 40 MG/0.4 ML SYRINGE SQ SCH (08:02)
[2018-04-10] MEDS: LACOSAMIDE 150 MG TABLET PO SCH ×2 (08:02→20:36)
[2018-04-10] MEDS: OXYBUTYNIN 10 MG TAB.ER.24 PO SCH ×3 (08:03→20:36)
[2018-04-10] MEDS: tiZANidine 4 MG TAB PO SCH ×2 (08:03→20:36)
[2018-04-10] MEDS: PANTOPRAZOLE 40 MG TABLET PO SCH (08:03)
[2018-04-10] MEDS: Acetaminophen-Codeine 300-30mg TAB PO PRN ×2 (08:11→20:41)
[2018-04-10 09:33] LABS: Anion Gap 8 mmol/L; Blood Urea Nitrogen 5 mg/dL (7-17); Calcium 8.5 mg/dL (8.4-10.2); Carbon Dioxide 21 mmol/L (22-30); Chloride 111 mmol/L (98-107); Glucose 114 mg/dL (74-99); Potassium 3.8 mmol/L (3.5-5.1); Sodium 140 mmol/L (137-145)
--- NOTE | 2018-04-10 13:56 | P.PN ---
Subjective Progress Note Date: 04/10/18 53-year-old female seen at the bedside sitting up in bed with no new events the left arm surgical dressing removed repacked the abscess cavity with wet to dry Kerlix dressings. Sterile 4 x 4 APD was reapplied. Cultures and pathology from the fluid are pending patients being followed by infectious disease. Patient is voicing concerns that her MediPort has not been accessed since being placed 2 weeks prior Objective - Vital Signs Vital signs: Vital Signs Temp 99.4 F 04/10/18 07:00 Pulse 88 04/10/18 07:00 Resp 16 04/10/18 07:00 BP 96/53 04/10/18 07:00 Pulse Ox 94 L 04/10/18 07:00 Intake & Output 04/09/18 04/10/18 04/10/18 18:59 06:59 18:59 Intake Total 1250 Output Total 10 500 Balance 1240 -500 Intake: IV 1250 Sodium Chloride 0.9% 1, 400 000 ml @ 50 mls/hr IV . Q20H RC Rx#:[id number] cefTRIAXone 1,000 mg In 50 Sodium Chloride 0.9% 50 ml @ 100 mls/hr IVPB Q24HR RC Rx#:[id number] Output: Urine 500 Estimated Blood Loss 10 Other: Voiding Method Indwelling Catheter Indwelling Catheter # Bowel Movements 1 - Exam GENERAL APPEARANCE: 53 -year-old female patient is alert, oriented x 3 in no acute distress talkative. VITAL SIGNS: Reviewed HEENT: Head is normocephalic and atraumatic. Pupils are equal and reactive. The nares are patent. Oropharynx is clear without lesions. NECK: Supple without lymphadenopathy. Traches midline. HEART: S1, S2. Regular rate and rhythm. No murmur noted denying chest pain LUNGS: No crackles or wheezes are heard. Adequate air movement bilaterally on room air ABDOMEN: Soft, nontender, nondistended with good bowel sounds. No peritoneal signs. No palpable organomegaly or masses. Suprapubic catheter in place omi urine EXTREMITIES: Left upper extremity dressing removed and reapplied. Wet-to-dry Kerlix placed cavity moderate amount of drainage on the dressing no odor noted cavity is deep positive tenderness Trace pedal edema no calf tenderness left extremity weakness - Labs CBC & Chem 7: 04/07/18 17:39 04/10/18 08:55 Labs: Abnormal Lab Results - Last 24 Hours (Table) 04/10/18 Range/Units 08:55 Chloride 111 H (98-107) mmol/L Carbon Dioxide 21 L (22-30) mmol/L BUN 5 L (7-17) mg/dL Creatinine 0.50 L (0.52-1.04) mg/dL Glucose 114 H (74-99) mg/dL Microbiology - Last 24 Hours (Table) 04/09/18 13:32 Gram Stain - Preliminary Arm - Left Wound Culture - Preliminary 04/09/18 13:32 Anaerobic Culture - Preliminary Arm - Left 04/07/18 17:39 Blood Culture - Preliminary Blood No Growth after 48 hours Assessment and Plan Assessment: Impression Status post 02/09/2018 malfunction MediPort placement left subclavian after removing port from right side Present on admission cellulitis left upper extremity failed outpatient treatment Dopplers to the left upper extremity done on April 02 show fluid measuring 7.2 x 4.8 Wheelchair bedbound from [place] History of a prior CVA with left-sided weakness Present on admission hyperkalemic prior DVT on Xarelto Left upper arm abscess status post incision and drainage done on April 09 Plan Xarelto to be restarted April 11 Infectious disease to follow-up on the wound cultures antibiotics per infectious disease DVT and GI prophylaxis pain control will follow with you Daily wet-to-dry Kerlix dressing to the left abscess cavity The above impression and plan of care have been discussed and directed by signing physician. Odette Vo nurse practitioner acting as scribe for signing physician.
--- NOTE | 2018-04-10 14:15 | P.PN ---
Subjective Progress Note Date: 04/10/18 53-year-old female who presented to the emergency room with a chief complaint of increased pain, erythema, and swelling to left upper extremity. Patient had a left subclavian Port-A-Cath inserted on 02/09/[address] García after her port on the right side malfunctioned. The patient states her port has been accessed since that time. She states a few weeks ago she began having redness and pain to the left upper extremity. She was placed on antibiotics, but did not see much improvement and presented to the emergency room for further evaluation. The patient did have a left upper extremity Doppler completed on 04/02/2018 which revealed a fluid pocket measuring 7.22.4 4.8 cm. The patient has a history of multiple sclerosis and utilizes a power chair most of the time. She resides with her at [facility]. 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 She has a suprapubic catheter which was last changed on 03/27/2018. She is a history of seizure disorder with a last reported seizure in July 2017, DVT in December 2017 , cervical cancer, and breast cancer. She also has a history of MRSA in her sputum in 2014. Laboratory data upon admission reveals a white count of 6.0. Hemoglobin 10.2. Platelet count 536. Sodium 142. Potassium 5.1. BUN 11. Creatinine 0.73. Lactic acid 1.5. Phosphorus 4.7. Magnesium 2.1. Troponin negative 1. The patient was started on ceftriaxone and vancomycin and admitted to the hospital. Consultations were placed to infectious disease and general surgery, Dr. García 04/09/2018 Patient seen and examined at the bedside with Dr. Bowers. Patient underwent ultrasound of left upper arm yesterday revealing larger fluid collection measuring 11.[address] scan of left upper extremity completed yesterday revealing fluid collection within the biceps muscle consistent with intramuscular hematoma or seroma. Abscess is not excluded. There is irregular defect across the subcapital aspect of the humeral head consistent with subacute fracture. No displacement. Patient states she slept last night until 3am but has been awake since. She is requesting her Ambien dose to be increased. Patient denies shortness of breath or chest pain. Denies nausea or vomiting. Patient is scheduled for I&D of left upper extremity today 04/10/2018 Patient seen and examined at the bedside. Patient underwent I&D of left upper extremity yesterday with Dr. García. Wound cavity is being packed with wet-to -dry Kerlix. Cultures were taken and results are currently pending. Vital signs remained stable. Temperature this morning 99.4. She is on room air with oxygen saturations greater than 92%. Infectious disease remains on consult. She is receiving vancomycin and Rocephin at this time. Objective - Vital Signs Vital signs: Vital Signs Temp 99.4 F 04/10/18 07:00 Pulse 88 04/10/18 07:00 Resp 16 04/10/18 07:00 BP 96/53 04/10/18 07:00 Pulse Ox 94 L 04/10/18 07:00 Intake & Output 04/09/18 04/10/18 04/10/18 18:59 06:59 18:59 Intake Total 1250 Output Total 10 500 Balance 1240 -500 Intake: IV 1250 Sodium Chloride 0.9% 1, 400 000 ml @ 50 mls/hr IV . Q20H RC Rx#:[id number] cefTRIAXone 1,000 mg In 50 Sodium Chloride 0.9% 50 ml @ 100 mls/hr IVPB Q24HR RC Rx#:[id number] Output: Urine 500 Estimated Blood Loss 10 Other: Voiding Method Indwelling Catheter Indwelling Catheter # Bowel Movements 1 - Exam GENERAL: This is a 53-year-old female in no apparent distress at the time of examination. Pleasant and cooperative. HEENT: Head is atraumatic, normocephalic. Pupils are equal, round, and reactive to light. Sclerae anicteric. Conjunctivae are clear. Mucus membranes of the mouth are moist. Neck is supple. RESPIRATORY: Clear to ausculation. No wheezes, rales, or rhonchi. No use of accessory muscles. Patient maintaining oxygen saturation greater than 92%. No chest wall tenderness is noted on palpation or with deep breathing. CARDIOVASCULAR: Regular rate and rhythm. S1 and S2 noted. No systolic or diastolic murmur auscultated. No JVD noted. No S3 or S4 noted. GASTROINTESTINAL: No distention noted. Abdomen soft and round. Normal active bowel sounds auscultated x 4 quadrants. No pain or tenderness noted upon palpation. INTEGUMENTARY: Left upper arm dressing clean dry and intact. No cyanosis. No jaundice. No rashes noted. EXTREMITIES: Left-sided weakness. 2+ peripheral pulses. No evidence of peripheral edema. No calf tenderness noted. NEUROLOGIC: Cranial nerves II-XII intact. PSYCHIATRIC: Awake, alert, and oriented X 3. Appropriate affect. Intact judgement and insight. - Labs CBC & Chem 7: 04/07/18 17:39 04/10/18 08:55 Labs: Abnormal Lab Results - Last 24 Hours (Table) 04/10/18 Range/Units 08:55 Chloride 111 H (98-107) mmol/L Carbon Dioxide 21 L (22-30) mmol/L BUN 5 L (7-17) mg/dL Creatinine 0.50 L (0.52-1.04) mg/dL Glucose 114 H (74-99) mg/dL Microbiology - Last 24 Hours (Table) 04/09/18 13:32 Gram Stain - Preliminary Arm - Left Wound Culture - Preliminary 04/09/18 13:32 Anaerobic Culture - Preliminary Arm - Left 04/07/18 17:39 Blood Culture - Preliminary Blood No Growth after 48 hours Assessment and Plan Plan: ASSESSMENT: Cellulitis of the left upper extremity, failed outpatient treatment, US from revealed fluid pocket measuring 7.22.44.8 cm, CT now reveals fluid collection is 11 x 3 cm, status post I&D of left upper arm 04/09/2018 Status post left subclavian Mediport placement, 02/09/2018 due to malfunctioning right chest Mediport History of multiple sclerosis History of CVA with residual left-sided weakness History of seizure disorder History of DVT, on anticoagulation with Xarelto History of cervical cancer and breast cancer Mild hyperkalemia Possible subacute fracture of left humeral head PLAN: Infectious disease on consult. Appreciate recommendations and input Continue antibiotics Await results of cultures General surgery on consult. Appreciate recommendations and input Resume Xarelto and aspirin Home meds as appropriate Monitor labs GI prophylaxis: Protonix 40 mg PO Daily DVT prophylaxis Lovenox 40 mg subcu daily Monitor vital signs and address as appropriate Discharge planning: Patient to return to [facility] when stable Further recommendations pending patient's course Nurse practitioner note has been reviewed by physician. Signing provider agrees with the documented findings, assessment, and plan of care.
--- NOTE | 2018-04-10 17:45 | PN ---
PROGRESS NOTE DATE OF SERVICE: 04/10/2018. REASON FOR FOLLOWUP: Left upper arm abscess and cellulitis. INTERVAL HISTORY: The patient was taken to the OR yesterday and status post drainage of the left upper arm abscess. The patient is complaining of pain to the left upper arm area, more of a dull aching pain, some control with pain medication. The patient denies having any chest pain, shortness of breath or cough. No abdominal pain and no diarrhea. EXAMINATION: Blood pressure is 111/54, the pulse of 84, temperature 98.9. She is 96% on room air. General description is a middle aged female lying in bed in no distress. RESPIRATORY SYSTEM: Unlabored breathing. Clear to auscultation anteriorly. HEART: S1, S2. Regular rate and rhythm. ABDOMEN: Soft, no tenderness. LABS: Hemoglobin 10.2, white count 6.0, BUN of 5, creatinine 0.50. The Gram stain on the cultures done from the left upper arm abscess showing gram-positive cocci in clusters. DIAGNOSTIC IMPRESSION AND PLAN: Patient with left upper arm abscess, status post surgical drainage. The patient to continue with vancomycin pharmacy to dose. Will wait for the culture to finalize to determine discharge antibiotics as well as clinical response. Continue supportive care. MMODL / IJN: [id number] /
[2018-04-10] MEDS: PROPRANOLOL LA 80 MG CAP.SA.24H PO SCH (20:35)
[2018-04-10] MEDS: TOPIRAMATE 100 MG TAB PO SCH (20:35)
[2018-04-10] MEDS: SENNOSIDES 8.6 MG TAB PO SCH (20:38)
[2018-04-10] MEDS: MELATONIN 5 MG TABLET PO SCH (20:38)
[2018-04-10] MEDS: traZODone HCL 50 MG TAB PO SCH (20:38)
[2018-04-10] MEDS: ZOLPIDEM 10 MG TAB PO PRN (21:28)
[2018-04-10] MEDS: TEMAZEPAM 15 MG CAP PO PRN (21:28)
[2018-04-11] MEDS: VANCOMYCIN 1,250 MG in SODIUM CHLORIDE 0.9% 250 ML IVPB SCH ×2 (06:15→17:45)
[2018-04-11] MEDS: oxyCODONE-APAP 10-325MG 1 EACH TAB PO PRN ×3 (06:15→20:48)
[2018-04-11] MEDS: LEVOTHYROXINE 100 MCG TAB PO SCH (06:15)
[2018-04-11] MEDS: SODIUM CHLORIDE 0.9% 1,000 ML IV SCH ×2 (06:16→17:46)
[2018-04-11] MEDS: Acetaminophen-Codeine 300-30mg TAB PO PRN ×3 (06:41→21:27)
[2018-04-11 08:17] LABS: Anion Gap 9 mmol/L; Blood Urea Nitrogen 3 mg/dL (7-17); Calcium 8.5 mg/dL (8.4-10.2); Carbon Dioxide 22 mmol/L (22-30); Chloride 112 mmol/L (98-107); Glucose 81 mg/dL (74-99); Sodium 143 mmol/L (137-145)
[2018-04-11 08:18] LABS: Basophils % (A) 1 %; Eosinophils # (A) 0.1 k/uL (0-0.7); Eosinophils % (A) 2 %; HGB 8.6 gm/dL (11.4-16.0); Hypochromasia Marked; Lymphocytes # (A) 0.5 k/uL (1.0-4.8); Lymphocytes % (A) 11 %; MCH 26.3 pg (25.0-35.0); MCHC 30.7 g/dL (31.0-37.0); MCV 85.6 fL (80.0-100.0); Mean Platelet Volume 6.9; Monocytes # (A) 0.2 k/uL (0-1.0); Monocytes % (A) 5 %; Neutrophils # (A) 3.4 k/uL (1.3-7.7); Neutrophils % (A) 79 %; Platelet Count 382 k/uL (150-450); RBC 3.27 m/uL (3.80-5.40); RDW 15.9 % (11.5-15.5); WBC 4.3 k/uL (3.8-10.6)
[2018-04-11] MEDS: DOCUSATE 100 MG CAP PO SCH (08:39)
[2018-04-11] MEDS: LIDOCAINE 5% PATCH TOPICAL SCH ×2 (08:39→20:51)
[2018-04-11] MEDS: PROPYLENE GLYCOL BOTH EYES SCH ×2 (08:41→20:51)
[2018-04-11] MEDS: PEG BOTH EYES SCH ×2 (08:41→20:51)
[2018-04-11] MEDS: PANTOPRAZOLE 40 MG TABLET PO SCH (08:42)
[2018-04-11] MEDS: OXYBUTYNIN 10 MG TAB.ER.24 PO SCH ×3 (08:42→20:48)
[2018-04-11] MEDS: tiZANidine 4 MG TAB PO SCH ×2 (08:42→20:48)
[2018-04-11] MEDS: ASPIRIN 325 MG TAB PO SCH (08:42)
[2018-04-11] MEDS: MAGNESIUM OXIDE 400 MG TAB PO SCH ×2 (08:43→20:51)
[2018-04-11] MEDS: RIVAROXABAN 20 MG TAB PO SCH (08:43)
[2018-04-11] MEDS: LACOSAMIDE 150 MG TABLET PO SCH ×2 (08:46→20:48)
--- NOTE | 2018-04-11 10:14 | P.PN ---
Subjective Progress Note Date: 04/11/18 Principal diagnosis: Left biceps abscess Patient doing better today. Her pain in the left arm is improved. She is afebrile. White blood cell count now normal. Objective - Vital Signs Vital signs: Vital Signs Temp 97.8 F 04/11/18 06:39 Pulse 86 04/11/18 06:39 Resp 15 04/11/18 06:39 BP 117/80 04/11/18 06:39 Pulse Ox 97 04/11/18 06:39 Intake & Output 04/10/18 04/11/18 04/11/18 18:59 06:59 18:59 Intake Total 450 Output Total 1600 Balance 450 -1600 Weight 73.482 kg Intake: IV 450 Sodium Chloride 0.9% 1, 400 000 ml @ 50 mls/hr IV . Q20H RC Rx#:[id number] cefTRIAXone 1,000 mg In 50 Sodium Chloride 0.9% 50 ml @ 100 mls/hr IVPB Q24HR RC Rx#:[id number] Output: Urine 1600 Other: Voiding Method Indwelling Catheter Indwelling Catheter Indwelling Catheter - Exam Left arm wound clean, mild erythema, mild tenderness - Labs CBC & Chem 7: 04/11/18 07:35 04/11/18 07:35 Labs: Abnormal Lab Results - Last 24 Hours (Table) 04/11/18 04/11/18 Range/Units 07:35 07:35 RBC 3.27 L (3.80-5.40) m/uL Hgb 8.6 L D (11.4-16.0) gm/dL Hct 28.0 L (34.0-46.0) % MCHC 30.7 L (31.0-37.0) g/dL RDW 15.9 H (11.5-15.5) % Lymphocytes # 0.5 L (1.0-4.8) k/uL Chloride 112 H (98-107) mmol/L BUN 3 L (7-17) mg/dL Creatinine 0.51 L (0.52-1.04) mg/dL Microbiology - Last 24 Hours (Table) 04/07/18 17:39 Blood Culture - Preliminary Blood No Growth after 72 hours 04/09/18 13:32 Gram Stain - Preliminary Arm - Left Wound Culture - Preliminary Presumptive Staph aureus Assessment and Plan (1) Cellulitis of left upper extremity Narrative/Plan: Continue local wound care. Continue antibiotics. May shower. Current Visit: Yes Status: Acute Code(s): L03.114 - CELLULITIS OF LEFT UPPER LIMB SNOMED Code(s): 464661337
--- NOTE | 2018-04-11 12:47 | P.PN ---
Subjective 53-year-old female who presented to the emergency room with a chief complaint of increased pain, erythema, and swelling to left upper extremity. Patient had a left subclavian Port-A-Cath inserted on 02/09/[address] García after her port on the right side malfunctioned. The patient states her port has been accessed since that time. She states a few weeks ago she began having redness and pain to the left upper extremity. She was placed on antibiotics, but did not see much improvement and presented to the emergency room for further evaluation. The patient did have a left upper extremity Doppler completed on 04/02/2018 which revealed a fluid pocket measuring 7.22.4 4.8 cm. The patient has a history of multiple sclerosis and utilizes a power chair most of the time. She resides with her at [facility]. 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 She has a suprapubic catheter which was last changed on 03/27/2018. She is a history of seizure disorder with a last reported seizure in July 2017, DVT in December 2017 , cervical cancer, and breast cancer. She also has a history of MRSA in her sputum in 2014. Laboratory data upon admission reveals a white count of 6.0. Hemoglobin 10.2. Platelet count 536. Sodium 142. Potassium 5.1. BUN 11. Creatinine 0.73. Lactic acid 1.5. Phosphorus 4.7. Magnesium 2.1. Troponin negative 1. The patient was started on ceftriaxone and vancomycin and admitted to the hospital. Consultations were placed to infectious disease and general surgery, Dr. García 04/09/2018 Patient seen and examined at the bedside with Dr. Bowers. Patient underwent ultrasound of left upper arm yesterday revealing larger fluid collection measuring 11.[address] scan of left upper extremity completed yesterday revealing fluid collection within the biceps muscle consistent with intramuscular hematoma or seroma. Abscess is not excluded. There is irregular defect across the subcapital aspect of the humeral head consistent with subacute fracture. No displacement. Patient states she slept last night until 3am but has been awake since. She is requesting her Ambien dose to be increased. Patient denies shortness of breath or chest pain. Denies nausea or vomiting. Patient is scheduled for I&D of left upper extremity today 04/10/2018 Patient seen and examined at the bedside. Patient underwent I&D of left upper extremity yesterday with Dr. García. Wound cavity is being packed with wet-to -dry Kerlix. Cultures were taken and results are currently pending. Vital signs remained stable. Temperature this morning 99.4. She is on room air with oxygen saturations greater than 92%. Infectious disease remains on consult. She is receiving vancomycin and Rocephin at this time. 04/11/2018 Simón is a 53-year-old white female patient of mine previously, she is being cared for by Dr. Radford over at [facility], where she is currently residing. Her is also residing there. She is status post I&D of abscess with cellulitis to the left arm. She is postop day 2. She feels better. Less pain at the site. She denies any chest pains, pressures, or shortness of breath today. She is tolerating her diet. She indicates she sleeping better with Ambien 10 mg along with Restoril. She has chronic ongoing insomnia. Laboratory study showing a worsening normocytic anemia. Possibly due to blood loss from surgery mine with anemia of chronic disease. Objective - Vital Signs Vital signs: Vital Signs Temp 97.8 F 04/11/18 06:39 Pulse 86 04/11/18 06:39 Resp 15 04/11/18 06:39 BP 117/80 04/11/18 06:39 Pulse Ox 97 04/11/18 06:39 Intake & Output 04/10/18 04/11/18 04/11/18 18:59 06:59 18:59 Intake Total 450 250 Output Total 1600 Balance 450 -1600 250 Weight 73.482 kg Intake: IV 450 Sodium Chloride 0.9% 1, 400 000 ml @ 50 mls/hr IV . Q20H RC Rx#:[id number] cefTRIAXone 1,000 mg In 50 Sodium Chloride 0.9% 50 ml @ 100 mls/hr IVPB Q24HR RC Rx#:[id number] Oral 250 Output: Urine 1600 Other: Voiding Method Indwelling Catheter Indwelling Catheter Indwelling Catheter - Exam GENERAL: This is a 53-year-old female in no apparent distress at the time of examination. Pleasant and cooperative. She has multiple sclerosis and is debilitated. HEENT: Head is atraumatic, normocephalic. Pupils are equal, round, and reactive to light. Sclerae anicteric. Conjunctivae are clear. Mucus membranes of the mouth are moist. Neck is supple. RESPIRATORY: Clear to ausculation. No wheezes, rales, or rhonchi. No use of accessory muscles. Patient maintaining oxygen saturation greater than 92%. No chest wall tenderness is noted on palpation or with deep breathing. CARDIOVASCULAR: Regular rate and rhythm. S1 and S2 noted. No systolic or diastolic murmur auscultated. No JVD noted. No S3 or S4 noted. GASTROINTESTINAL: No distention noted. Abdomen soft and round. Normal active bowel sounds auscultated x 4 quadrants. No pain or tenderness noted upon palpation. Suprapubic catheter site clean and intact. INTEGUMENTARY: Left upper arm dressing clean dry and intact. No cyanosis. No jaundice. No rashes noted. EXTREMITIES: Left-sided weakness. 2+ peripheral pulses. No evidence of peripheral edema. No calf tenderness noted. There is a dressing to her left arm at her incision site from cellulitis with abscess. NEUROLOGIC: Cranial nerves II-XII intact. PSYCHIATRIC: Awake, alert, and oriented X 3. Appropriate affect. Intact judgement and insight. - Labs CBC & Chem 7: 04/11/18 07:35 04/11/18 07:35 Labs: Abnormal Lab Results - Last 24 Hours (Table) 04/11/18 04/11/18 Range/Units 07:35 07:35 RBC 3.27 L (3.80-5.40) m/uL Hgb 8.6 L D (11.4-16.0) gm/dL Hct 28.0 L (34.0-46.0) % MCHC 30.7 L (31.0-37.0) g/dL RDW 15.9 H (11.5-15.5) % Lymphocytes # 0.5 L (1.0-4.8) k/uL Chloride 112 H (98-107) mmol/L BUN 3 L (7-17) mg/dL Creatinine 0.51 L (0.52-1.04) mg/dL Microbiology - Last 24 Hours (Table) 04/07/18 17:39 Blood Culture - Preliminary Blood No Growth after 72 hours 04/09/18 13:32 Gram Stain - Preliminary Arm - Left Wound Culture - Preliminary Presumptive Staph aureus Assessment and Plan (1) Humerus head fracture Current Visit: Yes Status: Acute Code(s): S42.293A - OTH DISP FX OF UPPER END OF UNSP HUMERUS, INIT FOR CLOS FX SNOMED Code(s): 428847069 (2) Cellulitis of left upper extremity Current Visit: Yes Status: Acute Code(s): L03.114 - CELLULITIS OF LEFT UPPER LIMB SNOMED Code(s): 305153446 (3) Failure of outpatient treatment Current Visit: Yes Status: Acute Code(s): Z78.9 - OTHER SPECIFIED HEALTH STATUS SNOMED Code(s): 207029902 (4) CAD (coronary artery disease) Current Visit: No Status: Acute Code(s): I25.10 - ATHSCL HEART DISEASE OF UPPER [place] CORONARY ARTERY W/O ANG PCTRS SNOMED Code(s): 92412279 (5) Generalized seizure Current Visit: No Status: Acute Code(s): R56.9 - UNSPECIFIED CONVULSIONS SNOMED Code(s): 935570828 (6) History of immunosuppressive therapy Current Visit: No Status: Acute Code(s): Z92.25 - PERSONAL HISTORY OF IMMUNOSUPRESSION THERAPY SNOMED Code(s): 480265773 (7) Hemiplegia Current Visit: No Status: Chronic Code(s): G81.90 - HEMIPLEGIA, UNSPECIFIED AFFECTING UNSPECIFIED SIDE SNOMED Code(s): 41440942 (8) Insomnia Current Visit: No Status: Chronic Priority: High Code(s): G47.00 - INSOMNIA, UNSPECIFIED SNOMED Code(s): 733329798 (9) Multiple sclerosis Current Visit: No Status: Chronic Code(s): G35 - MULTIPLE SCLEROSIS SNOMED Code(s): 06900671 Plan: PLAN: Infectious disease on consult. Appreciate recommendations and input she remains on a Comycin. Cultures presumptive positive for staph, waiting and sensitivities to planned discharge antibiotics General surgery on consult. Appreciate recommendations and input Resume Xarelto and aspirin Home meds as appropriate We will ask orthopedics regarding the subacute left humeral head fracture and if any treatment is needed. There was no history of trauma. Monitor labs GI prophylaxis: Protonix 40 mg PO Daily DVT prophylaxis Lovenox 40 mg subcu daily Monitor vital signs and address as appropriate Discharge planning: Patient to return to [facility] when stable She will be reevaluated in the next 24 hours.
[2018-04-11] MEDS: SENNOSIDES 8.6 MG TAB PO SCH (20:49)
[2018-04-11] MEDS: traZODone HCL 50 MG TAB PO SCH (20:49)
[2018-04-11] MEDS: PROPRANOLOL LA 80 MG CAP.SA.24H PO SCH (20:49)
[2018-04-11] MEDS: MELATONIN 5 MG TABLET PO SCH (20:50)
[2018-04-11] MEDS: TOPIRAMATE 100 MG TAB PO SCH (20:50)
[2018-04-11] MEDS: ZOLPIDEM 10 MG TAB PO PRN (21:27)
[2018-04-11] MEDS: TEMAZEPAM 15 MG CAP PO PRN (21:27)
[2018-04-11] MEDS: ceFAZolin IN SWFI 2 GM/20 ML SYRINGE IVP SCH (23:57)
--- NOTE | 2018-04-12 05:07 | PN ---
PROGRESS NOTE DATE OF SERVICE: 04/11/2018 REASON FOR FOLLOWUP: Left upper arm abscess and cellulitis. INTERVAL HISTORY: The patient is currently afebrile. She is breathing comfortably. Still complains of some pain to the left forearm area. The patient denies having any chest pain, shortness of breath or cough and no diarrhea. EXAMINATION: Blood pressure is 113/56, pulse of 59, temperature 98.3. She is 97% on room air. General description is a middle-aged female lying in bed in no distress. Respiratory system unlabored breathing. Clear to auscultation anteriorly. Heart S1, S2. Regular rate and rhythm. Abdomen is soft. No tenderness. Left upper arm is currently dressed up. No obvious drainage on the dressing. LABS: Hemoglobin 8.5, white count 4.3 with a BUN of 30, creatinine 0.51. Wound culture finalized with MSSA. Blood culture has been negative. DIAGNOSTIC IMPRESSION AND PLAN: Patient with MSSA left upper arm abscess and cellulitis status post drainage. Antibiotic will be adjusted to cefazolin 2 g q.8 hours. Depending on clinical response, will determine discharge antibiotics. Hopefully on Friday. Continue supportive care. MMODL / IJN: [id number] /
[2018-04-12] MEDS: LEVOTHYROXINE 100 MCG TAB PO SCH (05:59)
[2018-04-12] MEDS: oxyCODONE-APAP 10-325MG 1 EACH TAB PO PRN ×3 (05:59→22:03)
[2018-04-12 08:07] LABS: Basophils % (A) 1 %; Eosinophils # (A) 0.1 k/uL (0-0.7); Eosinophils % (A) 2 %; HCT 27.7 % (34.0-46.0); HGB 8.5 gm/dL (11.4-16.0); Hypochromasia Marked; Lymphocytes # (A) 0.5 k/uL (1.0-4.8); Lymphocytes % (A) 12 %; MCH 26.4 pg (25.0-35.0); MCHC 30.9 g/dL (31.0-37.0); MCV 85.6 fL (80.0-100.0); Mean Platelet Volume 6.7; Monocytes # (A) 0.3 k/uL (0-1.0); Monocytes % (A) 7 %; Neutrophils # (A) 3.3 k/uL (1.3-7.7); Neutrophils % (A) 76 %; Platelet Count 402 k/uL (150-450); RBC 3.23 m/uL (3.80-5.40); WBC 4.4 k/uL (3.8-10.6)
[2018-04-12 08:20] LABS: Anion Gap 7 mmol/L; Blood Urea Nitrogen 4 mg/dL (7-17); Calcium 8.4 mg/dL (8.4-10.2); Carbon Dioxide 23 mmol/L (22-30); Chloride 112 mmol/L (98-107); Glucose 79 mg/dL (74-99); Potassium 3.7 mmol/L (3.5-5.1); Sodium 142 mmol/L (137-145)
[2018-04-12] MEDS: tiZANidine 4 MG TAB PO SCH ×2 (08:43→20:47)
[2018-04-12] MEDS: ceFAZolin IN SWFI 2 GM/20 ML SYRINGE IVP SCH ×3 (08:43→23:43)
[2018-04-12] MEDS: LACOSAMIDE 150 MG TABLET PO SCH ×2 (08:43→20:46)
[2018-04-12] MEDS: LIDOCAINE 5% PATCH TOPICAL SCH ×2 (08:43→20:45)
[2018-04-12] MEDS: Acetaminophen-Codeine 300-30mg TAB PO PRN ×2 (08:44→20:47)
[2018-04-12] MEDS: OXYBUTYNIN 10 MG TAB.ER.24 PO SCH ×3 (08:44→20:47)
[2018-04-12] MEDS: PANTOPRAZOLE 40 MG TABLET PO SCH (08:44)
[2018-04-12] MEDS: RIVAROXABAN 20 MG TAB PO SCH (08:44)
[2018-04-12] MEDS: MAGNESIUM OXIDE 400 MG TAB PO SCH ×2 (08:44→20:46)
[2018-04-12] MEDS: ASPIRIN 325 MG TAB PO SCH (08:44)
[2018-04-12] MEDS: DOCUSATE 100 MG CAP PO SCH (09:25)
--- NOTE | 2018-04-12 10:36 | P.PN ---
Subjective Progress Note Date: 04/12/18 Principal diagnosis: Left biceps abscess Patient doing well today. Minimal pain left upper arm. She is afebrile. White blood cell count is normal. Objective - Vital Signs Vital signs: Vital Signs Temp 98.6 F 04/12/18 05:37 Pulse 85 04/12/18 05:37 Resp 20 04/12/18 05:37 BP 117/59 04/12/18 05:37 Pulse Ox 94 L 04/12/18 05:37 Intake & Output 04/11/18 04/12/18 04/12/18 18:59 06:59 18:59 Intake Total 1050 Output Total 700 1700 Balance 350 -1700 Weight 73.482 kg Intake: Oral 1050 Output: Urine 700 1700 Other: Voiding Method Indwelling Catheter Indwelling Catheter Indwelling Catheter - Exam Left arm wound clean, minimal tenderness, scant erythema - Labs CBC & Chem 7: 04/12/18 07:20 04/12/18 07:20 Labs: Abnormal Lab Results - Last 24 Hours (Table) 04/12/18 04/12/18 Range/Units 07:20 07:20 RBC 3.23 L (3.80-5.40) m/uL Hgb 8.5 L (11.4-16.0) gm/dL Hct 27.7 L (34.0-46.0) % MCHC 30.9 L (31.0-37.0) g/dL RDW 16.0 H (11.5-15.5) % Lymphocytes # 0.5 L (1.0-4.8) k/uL Chloride 112 H (98-107) mmol/L BUN 4 L (7-17) mg/dL Creatinine 0.50 L (0.52-1.04) mg/dL Microbiology - Last 24 Hours (Table) 04/09/18 13:32 Anaerobic Culture - Preliminary Arm - Left 04/07/18 17:39 Blood Culture - Preliminary Blood No Growth after 96 hours 04/09/18 13:32 Gram Stain - Final Arm - Left Wound Culture - Final Staphylococcus aureus Assessment and Plan (1) Cellulitis of left upper extremity Narrative/Plan: Continue antibiotics. Continue local wound care. Current Visit: Yes Status: Acute Code(s): L03.114 - CELLULITIS OF LEFT UPPER LIMB SNOMED Code(s): 547668356
--- NOTE | 2018-04-12 11:15 | P.CNOR ---
History of Present Illness - [facility] Consult date: 04/12/18 Requesting physician: Yossi Recinos Consult reason: fracture History of present illness: Patient is a pleasant 53-year-old female seen at bedside this morning. Orthopedics was consulted for possible subacute fracture left humeral head. She has been inpatient for cellulitis infection at the left bicep. She does not recall injury to the left shoulder. She states she's had left shoulder pain for the past 4-[address] scan was done of the left upper extremity which showed abnormality at the humeral head possibly being a subacute fracture. She has no other complaints today. Review of Systems All systems: negative Constitutional: Denies chills, Denies fever Eyes: denies blurred vision, denies pain Ears, nose, mouth and throat: Denies headache, Denies sore throat Cardiovascular: Denies chest pain, Denies shortness of breath Respiratory: Denies cough Gastrointestinal: Denies abdominal pain, Denies diarrhea, Denies nausea, Denies vomiting Genitourinary: Denies dysuria, Denies hematuria Musculoskeletal: Denies myalgias Integumentary: Denies pruritus, Denies rash Neurological: Denies numbness, Denies weakness Psychiatric: Denies anxiety, Denies depression Endocrine: Denies fatigue, Denies weight change Past Medical History Past Medical History: Cancer, COPD, CVA/TIA, Deep Vein Thrombosis (DVT), Hyperlipidemia, Myocardial Infarction (SD), Neurologic Disorder, Seizure Disorder, Thyroid Disorder, Vascular Disorder Additional Past Medical History / Comment(s): Multiple Sclerosis - HAS SUPRAPUBIC CATH-pt stated was changed last 03-27-18. pt suffered stroke in september 2014 (which affected non dominant lt side) pt stated now she is able to use lt arm,hand.lt leg paralysis,able to wiggle toes a bit, wears lt leg brace. pt stated she is able to stand and walk w/ walker short distance by leading w/rt leg and drags lt foot-but mostly uses power chair .LAST SEIZURE - 2017 DVT lt leg approx. (December 2017),. PVD. Migraines. BORN W/ HEART MALFORMATION DEFECT,cervical cancer 1997-had surg & chemo,. RT BREAST CA - lumpectomy only [id number]. rt leg cellulitis-since resolved Last Myocardial Infarction Date:: 2004 History of Any Multi-Drug Resistant Organisms: MRSA Year Discovered:: 06/14/15 MDRO Source:: sputum Past Surgical History: Back Surgery, Cholecystectomy, Heart Catheterization, Hysterectomy, Tonsillectomy Additional Past Surgical History / Comment(s): sinus surgery FOR DEVIATED SEPTUM ; Rt breast lumpectomy; Rt knee surgery x 4 ARTHROSCOPIES AND ACL RECONSTRUCTION; LAPAROSCOPY, EXC ADHESIONS. Suprapubic Cath.07-28-17 egd w/ stoamch bx-neg, lexiscan stress test. back surgery .lt subclavian port a cath implanted on 01-13-18 pt stated "it's never been accessed". Past Anesthesia/Blood Transfusion Reactions: No Reported Reaction Additional Past Anesthesia/Blood Transfusion Reaction / Comm: CLAUSTROPHOBIA Smoking Status: Former smoker - Past Family History Father Family Medical History: Diabetes Mellitus, Myocardial Infarction (SD), Osteoarthritis (OA) Additional Family Medical History / Comment(s): OPEN HEART SX Mother Family Medical History: Myocardial Infarction (SD) Additional Family Medical History / Comment(s): LAST YEAR IN HER SLEEP(SD) Medications and Allergies Home Medications Medication Instructions Recorded Confirmed Type Propranolol HCl [Inderal LA] 160 mg PO HS 03/07/14 04/07/18 History Topiramate [Topamax] 400 mg PO HS 03/07/14 04/07/18 History Aspirin 325 mg PO DAILY 01/09/15 04/07/18 History Lacosamide [Vimpat] 150 mg PO BID 07/02/16 04/07/18 History Levothyroxine Sodium [Synthroid] 100 mcg PO DAILY 07/02/16 04/07/18 History Cyanocobalamin [Vitamin B-12 1,000 mcg SQ Q30D 08/05/16 04/07/18 History Injection] Potassium Chloride ER [K-Dur 10] 10 meq PO DAILY 06/13/17 04/07/18 History Omeprazole [PriLOSEC] 40 mg PO DAILY 07/07/17 04/07/18 History tiZANidine HCL [Zanaflex] 4 mg PO BID 07/07/17 04/07/18 History Temazepam [Restoril] 15 mg PO HS PRN cap 07/28/17 04/07/18 Rx Docusate [Colace] 100 mg PO DAILY 02/03/18 04/07/18 History Haloperidol [Haldol] 0.5 mg PO BID PRN 02/03/18 04/07/18 History LORazepam [Ativan] 0.5 mg PO Q4H PRN 02/03/18 04/07/18 History Rivaroxaban [Xarelto] 20 mg PO DAILY 02/03/18 04/07/18 History Sennosides [Senokot] 8.6 mg PO HS 02/03/18 04/07/18 History fentaNYL 12MCG/HR PATCH [Duragesic 1 patch TRANSDERM Q72H 02/03/18 04/07/18 History 12MCG/HR] fentaNYL 25MCG/HR PATCH [Duragesic 1 patch TRANSDERM Q72H 02/03/18 04/07/18 History 25MCG/HR] traZODone HCL 50 mg PO HS 02/03/18 04/07/18 History Acetaminophen-Codeine 300-30mg 1 tab PO Q8HR PRN 04/02/18 04/07/18 History [Tylenol w/codeine #3] Lidocaine 5% Patch [Lidoderm] 1 patch TOPICAL Q12H 04/02/18 04/07/18 History Magnesium Oxide [Mag-Ox] 125 mg PO Q12H 04/02/18 04/07/18 History Melatonin 5 mg PO HS 04/02/18 04/07/18 History Oxybutynin ER [Ditropan Xl] 10 mg PO TID 04/02/18 04/07/18 History Propylene Glycol/Peg 400 [Systane 1 drop BOTH EYES Q12H 04/02/18 04/07/18 History Ultra 0.4-0.3% Eye Drp] Lactulose 20 gm PO DAILY PRN 04/07/18 04/07/18 History Omeprazole [PriLOSEC] 40 mg PO DAILY 04/07/18 04/07/18 History oxyCODONE-APAP 10-325MG [Percocet 1 tab PO Q6HR PRN 04/07/18 04/07/18 History 10-325 mg] Allergies Allergy/AdvReac Type Severity Reaction Status Date / Time guaifenesin [From Entex LA] Allergy Anaphylaxis Verified 04/07/18 17:20 phenylephrine HCl Allergy Anaphylaxis Verified 04/07/18 17:20 [From Entex LA] phenylpropanolamine HCl Allergy Anaphylaxis Verified 04/07/18 17:20 [From Entex LA] Sulfa (Sulfonamide Allergy Anaphylaxis Verified 04/07/18 17:20 Antibiotics) tuberculin, purified protein Allergy Anaphylaxis Verified 04/07/18 17:20 deriva [Tuberculin,Purif.Prot.Deriv.] pseudoephedrine HCl AdvReac Swelling Verified 04/07/18 17:20 [From Mucinex D] Physical Examination Inspection of the left shoulder and upper extremity shows bandage in place from surgical I&D at the left bicep. Range of motion of the left shoulder reveals pain with forward flexion 160 and abduction to 90. She has relatively good range of motion with internal and external rotation being 40 with both respectively. No significant weakness in the left upper extremity where neurovascular status is intact with motor and sensation throughout. She has 2+ radial pulse was 2 second cap refill. Results - Labs Labs: Abnormal Lab Results - Last 24 Hours (Table) 04/12/18 04/12/18 Range/Units 07:20 07:20 RBC 3.23 L (3.80-5.40) m/uL Hgb 8.5 L (11.4-16.0) gm/dL Hct 27.7 L (34.0-46.0) % MCHC 30.9 L (31.0-37.0) g/dL RDW 16.0 H (11.5-15.5) % Lymphocytes # 0.5 L (1.0-4.8) k/uL Chloride 112 H (98-107) mmol/L BUN 4 L (7-17) mg/dL Creatinine 0.50 L (0.52-1.04) mg/dL Microbiology - Last 24 Hours (Table) 04/09/18 13:32 Anaerobic Culture - Preliminary Arm - Left 04/07/18 17:39 Blood Culture - Preliminary Blood No Growth after 96 hours 04/09/18 13:32 Gram Stain - Final Arm - Left Wound Culture - Final Staphylococcus aureus H & H 04/07/18 04/11/18 04/12/18 Range/Units 17:39 07:35 07:20 Hgb 10.2 L 8.6 L D 8.5 L (11.4-16.0) gm/dL Hct 34.0 28.0 L 27.7 L (34.0-46.0) % Coagulation 04/07/18 Range/Units 17:39 INR 1.1 (<1.2) Result Diagrams: 04/12/18 07:20 04/12/18 07:20 Assessment and Plan (1) Humerus head fracture Narrative/Plan: We will order an x-ray of the left shoulder. CT of the left upper extremity showed possible subacute fracture with minimal displacement. Should the x-ray reveal that she does have a minimally displaced subacute fracture, treatment would likely include conservative management in a sling. We will review her x- ray and make further recommendations as appropriate. Current Visit: Yes Status: Acute Priority: Medium Code(s): S42.293A - OT DISP FX OF UPPER END OF UNSP HUMERUS, INIT FOR CLOS FX SNOMED Code(s): 378943680 Time with Patient: Less than 30
--- NOTE | 2018-04-12 11:30 | XR ---
EXAMINATION TYPE: XR shoulder complete LT , 3 VIEWS DATE OF EXAM ORDERED: 04/12/2018 HISTORY: subacute fracture of humeral head?. COMPARISON: None. FINDINGS: There is a left subclavian catheter in place. No fracture, dislocation or other acute osseous lesion is seen. Fracture visualized on the patient's recent CT scan is not visualized on today's examination. IMPRESSION: NONVISUALIZATION OF THE PATIENT'S KNOWN FRACTURE OF THE HUMERAL HEAD.
--- NOTE | 2018-04-12 11:30 | P.PN ---
Subjective 53-year-old female who presented to the emergency room with a chief complaint of increased pain, erythema, and swelling to left upper extremity. Patient had a left subclavian Port-A-Cath inserted on 02/09/[address] García after her port on the right side malfunctioned. The patient states her port has been accessed since that time. She states a few weeks ago she began having redness and pain to the left upper extremity. She was placed on antibiotics, but did not see much improvement and presented to the emergency room for further evaluation. The patient did have a left upper extremity Doppler completed on 04/02/2018 which revealed a fluid pocket measuring 7.22.4 4.8 cm. The patient has a history of multiple sclerosis and utilizes a power chair most of the time. She resides with her at [facility]. 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 She has a suprapubic catheter which was last changed on 03/27/2018. She is a history of seizure disorder with a last reported seizure in July 2017, DVT in December 2017 , cervical cancer, and breast cancer. She also has a history of MRSA in her sputum in 2014. Laboratory data upon admission reveals a white count of 6.0. Hemoglobin 10.2. Platelet count 536. Sodium 142. Potassium 5.1. BUN 11. Creatinine 0.73. Lactic acid 1.5. Phosphorus 4.7. Magnesium 2.1. Troponin negative 1. The patient was started on ceftriaxone and vancomycin and admitted to the hospital. Consultations were placed to infectious disease and general surgery, Dr. García 04/09/2018 Patient seen and examined at the bedside with Dr. Bowers. Patient underwent ultrasound of left upper arm yesterday revealing larger fluid collection measuring 11.[address] scan of left upper extremity completed yesterday revealing fluid collection within the biceps muscle consistent with intramuscular hematoma or seroma. Abscess is not excluded. There is irregular defect across the subcapital aspect of the humeral head consistent with subacute fracture. No displacement. Patient states she slept last night until 3am but has been awake since. She is requesting her Ambien dose to be increased. Patient denies shortness of breath or chest pain. Denies nausea or vomiting. Patient is scheduled for I&D of left upper extremity today 04/10/2018 Patient seen and examined at the bedside. Patient underwent I&D of left upper extremity yesterday with Dr. García. Wound cavity is being packed with wet-to -dry Kerlix. Cultures were taken and results are currently pending. Vital signs remained stable. Temperature this morning 99.4. She is on room air with oxygen saturations greater than 92%. Infectious disease remains on consult. She is receiving vancomycin and Rocephin at this time. 04/11/2018 Simón is a 53-year-old white female patient of mine previously, she is being cared for by Dr. Radford over at [facility], where she is currently residing. Her is also residing there. She is status post I&D of abscess with cellulitis to the left arm. She is postop day 2. She feels better. Less pain at the site. She denies any chest pains, pressures, or shortness of breath today. She is tolerating her diet. She indicates she sleeping better with Ambien 10 mg along with Restoril. She has chronic ongoing insomnia. Laboratory study showing a worsening normocytic anemia. Possibly due to blood loss from surgery mine with anemia of chronic disease. 04/12/2018 Patient is feeling a bit fatigued today. We discussed her anemia. This is most likely from blood loss during surgery and anemia of chronic disease combined. She denies any chest pains, pressures, shortness of breath. She indicates she sleeping better with the Ambien and Restoril combination. Orthopedics is seeing her regarding the suspect subacute humeral head fracture of the left shoulder. Objective - Vital Signs Vital signs: Vital Signs Temp 98.6 F 04/12/18 05:37 Pulse 85 04/12/18 05:37 Resp 20 04/12/18 05:37 BP 117/59 04/12/18 05:37 Pulse Ox 94 L 04/12/18 05:37 Intake & Output 04/11/18 04/12/18 04/12/18 18:59 06:59 18:59 Intake Total 1050 Output Total 700 1700 Balance 350 -1700 Weight 73.482 kg Intake: Oral 1050 Output: Urine 700 1700 Other: Voiding Method Indwelling Catheter Indwelling Catheter Indwelling Catheter - Exam GENERAL: This is a 53-year-old female in no apparent distress at the time of examination. Pleasant and cooperative. She has multiple sclerosis and is debilitated. HEENT: Head is atraumatic, normocephalic. Pupils are equal, round, and reactive to light. Sclerae anicteric. Conjunctivae are clear. Mucus membranes of the mouth are moist. Neck is supple. RESPIRATORY: Clear to ausculation. No wheezes, rales, or rhonchi. No use of accessory muscles. Patient maintaining oxygen saturation greater than 92%. No chest wall tenderness is noted on palpation or with deep breathing. CARDIOVASCULAR: Regular rate and rhythm. S1 and S2 noted. No systolic or diastolic murmur auscultated. No JVD noted. No S3 or S4 noted. GASTROINTESTINAL: No distention noted. Abdomen soft and round. Normal active bowel sounds auscultated x 4 quadrants. No pain or tenderness noted upon palpation. Suprapubic catheter site clean and intact. INTEGUMENTARY: Left upper arm dressing clean dry and intact. No cyanosis. No jaundice. No rashes noted. EXTREMITIES: Left-sided weakness. 2+ peripheral pulses. No evidence of peripheral edema. No calf tenderness noted. There is a dressing to her left arm at her incision site from cellulitis with abscess. NEUROLOGIC: Cranial nerves II-XII intact. PSYCHIATRIC: Awake, alert, and oriented X 3. Appropriate affect. Intact judgement and insight. - Labs CBC & Chem 7: 04/12/18 07:20 04/12/18 07:20 Labs: Abnormal Lab Results - Last 24 Hours (Table) 04/12/18 04/12/18 Range/Units 07:20 07:20 RBC 3.23 L (3.80-5.40) m/uL Hgb 8.5 L (11.4-16.0) gm/dL Hct 27.7 L (34.0-46.0) % MCHC 30.9 L (31.0-37.0) g/dL RDW 16.0 H (11.5-15.5) % Lymphocytes # 0.5 L (1.0-4.8) k/uL Chloride 112 H (98-107) mmol/L BUN 4 L (7-17) mg/dL Creatinine 0.50 L (0.52-1.04) mg/dL Microbiology - Last 24 Hours (Table) 04/09/18 13:32 Anaerobic Culture - Preliminary Arm - Left 04/07/18 17:39 Blood Culture - Preliminary Blood No Growth after 96 hours 04/09/18 13:32 Gram Stain - Final Arm - Left Wound Culture - Final Staphylococcus aureus Assessment and Plan (1) Humerus head fracture Current Visit: Yes Status: Acute Priority: Medium Code(s): S42.293A - OTH DISP FX OF UPPER END OF UNSP HUMERUS, INIT FOR CLOS FX SNOMED Code(s): 043196394 (2) Cellulitis of left upper extremity Current Visit: Yes Status: Acute Code(s): L03.114 - CELLULITIS OF LEFT UPPER LIMB SNOMED Code(s): 217440233 (3) Failure of outpatient treatment Current Visit: Yes Status: Acute Code(s): Z78.9 - OTHER SPECIFIED HEALTH STATUS SNOMED Code(s): 167444289 (4) CAD (coronary artery disease) Current Visit: No Status: Acute Code(s): I25.10 - ATHSCL HEART DISEASE OF [place] CORONARY ARTERY W/O ANG PCTRS SNOMED Code(s): 91838440 (5) Generalized seizure Current Visit: No Status: Acute Code(s): R56.9 - UNSPECIFIED CONVULSIONS SNOMED Code(s): 080071028 (6) History of immunosuppressive therapy Current Visit: No Status: Acute Code(s): Z92.25 - PERSONAL HISTORY OF IMMUNOSUPRESSION THERAPY SNOMED Code(s): 877757203 (7) Hemiplegia Current Visit: No Status: Chronic Code(s): G81.90 - HEMIPLEGIA, UNSPECIFIED AFFECTING UNSPECIFIED SIDE SNOMED Code(s): 38867917 (8) Insomnia Current Visit: No Status: Chronic Priority: High Code(s): G47.00 - INSOMNIA, UNSPECIFIED SNOMED Code(s): 923730432 (9) Multiple sclerosis Current Visit: No Status: Chronic Code(s): G35 - MULTIPLE SCLEROSIS SNOMED Code(s): 71666069 Plan: PLAN: Infectious disease on consult. Wound cultures show staph aureus. Multiple susceptibilities noted. Blood culture and anaerobic cultures are negative. Patient is now on Kefzol. General surgery is following after her I&D of the left arm abscess. We will wait on recommendations from orthopedic surgery. Monitor labs GI prophylaxis: Protonix 40 mg PO Daily DVT prophylaxis Lovenox 40 mg subcu daily Monitor vital signs and address as appropriate Discharge planning: Patient to return to [facility] in 24 hours. She will be reevaluated in the next 24 hours.
[2018-04-12] MEDS: MULTIVITAMINS, THERA 1 EACH TAB PO SCH (13:57)
[2018-04-12] MEDS: PROPYLENE GLYCOL BOTH EYES SCH ×2 (14:45→22:28)
[2018-04-12] MEDS: PEG BOTH EYES SCH ×2 (14:45→22:28)
[2018-04-12] MEDS: SODIUM CHLORIDE 0.9% 1,000 ML IV SCH (16:56)
[2018-04-12] MEDS: PROPRANOLOL LA 80 MG CAP.SA.24H PO SCH (20:46)
[2018-04-12] MEDS: MELATONIN 5 MG TABLET PO SCH (20:46)
[2018-04-12] MEDS: TOPIRAMATE 100 MG TAB PO SCH (20:47)
[2018-04-12] MEDS: traZODone HCL 50 MG TAB PO SCH (20:47)
[2018-04-12] MEDS: SENNOSIDES 8.6 MG TAB PO SCH (20:47)
[2018-04-12] MEDS: TEMAZEPAM 15 MG CAP PO PRN (22:03)
[2018-04-12] MEDS: ZOLPIDEM 10 MG TAB PO PRN (22:03)
--- NOTE | 2018-04-12 22:08 | PN ---
PROGRESS NOTE DATE OF SERVICE: 04/12/2018. REASON FOR FOLLOWUP: Left upper arm abscess and cellulitis. INTERVAL HISTORY: The patient is currently afebrile. She is breathing comfortably. Pain to the left arm is currently controlled with pain medication. No chest pain or shortness of breath, cough, abdominal pain, or any diarrhea. EXAMINATION: Blood pressure 109/63 with a pulse of 71, temperature 98.5, she is 98% on room air. GENERAL DESCRIPTION: A middle-aged female lying in bed in no distress. RESPIRATORY SYSTEM: Unlabored breathing. Clear to auscultation anteriorly. HEART: S1, S2. Regular rate and rhythm. EXTREMITIES: Left forearm wound significantly deep, but not touching the bone with a Q- tip. Surrounding swelling and redness has improved. LABS: Hemoglobin 8.5, white count 4.4 with a BUN of 4, creatinine 0.50. Wound culture with MSSA. Blood culture has been negative. DIAGNOSTIC IMPRESSION AND PLAN: Patient with a left upper arm abscess status post drainage with a deep wound. We will try to arrange for the wound VAC in outpatient setting. We will review the CT with the radiologist tomorrow. If no communication to the bone, will finish therapy with oral Keflex. Continue cefazolin for now. Continue supportive care. MMODL / IJN: [id number] /
[2018-04-13] MEDS: LEVOTHYROXINE 100 MCG TAB PO SCH (05:48)
[2018-04-13] MEDS: PROPYLENE GLYCOL BOTH EYES SCH ×2 (07:43→21:59)
[2018-04-13] MEDS: PEG BOTH EYES SCH ×2 (07:43→21:59)
[2018-04-13] MEDS: ceFAZolin IN SWFI 2 GM/20 ML SYRINGE IVP SCH ×3 (07:46→23:07)
[2018-04-13] MEDS: tiZANidine 4 MG TAB PO SCH ×2 (07:47→21:58)
[2018-04-13] MEDS: MAGNESIUM OXIDE 400 MG TAB PO SCH ×2 (07:48→21:58)
[2018-04-13] MEDS: ASPIRIN 325 MG TAB PO SCH (07:48)
[2018-04-13] MEDS: RIVAROXABAN 20 MG TAB PO SCH (07:48)
[2018-04-13] MEDS: OXYBUTYNIN 10 MG TAB.ER.24 PO SCH ×3 (07:48→21:58)
[2018-04-13] MEDS: LIDOCAINE 5% PATCH TOPICAL SCH ×2 (07:49→21:57)
[2018-04-13] MEDS: PANTOPRAZOLE 40 MG TABLET PO SCH (07:49)
[2018-04-13] MEDS: DOCUSATE 100 MG CAP PO SCH ×2 (07:49→08:48)
[2018-04-13] MEDS: oxyCODONE-APAP 10-325MG 1 EACH TAB PO PRN ×3 (08:08→22:01)
[2018-04-13] MEDS: LACOSAMIDE 150 MG TABLET PO SCH ×2 (08:08→22:01)
[2018-04-13] MEDS: Acetaminophen-Codeine 300-30mg TAB PO PRN (08:46)
[2018-04-13 09:41] LABS: Anion Gap 8 mmol/L; Blood Urea Nitrogen 5 mg/dL (7-17); Calcium 8.1 mg/dL (8.4-10.2); Carbon Dioxide 20 mmol/L (22-30); Chloride 111 mmol/L (98-107); Glucose 98 mg/dL (74-99); Potassium 3.9 mmol/L (3.5-5.1); Sodium 139 mmol/L (137-145)
--- NOTE | 2018-04-13 11:05 | CDI ---
Last Revision, June 2017 Documentation Clarification Form Date: 04/13/2018 10:57:00 AM From: Selena MetzSANTOS, CCDS Admit Date: 04/07/2018 7:00:00 PM Patient Name: Enid Oates Visit Number: [id number] Discharge Date: ATTENTION: The Clinical Documentation Specialists (CDI) and [facility] Coding Staff appreciate your assistance in clarifying documentation. Please respond to the clarification below the line at the bottom and electronically sign. The CDI & [facility] Coding staff will review the response and follow-up if needed. Please note: Queries are made part of the Legal Health Record. If you have any questions, please contact the author of this message via ITS. Keith Sawant MD: A diagnosis of anemia lacks specificity to accurately reflect your patients severity of condition and clarification is needed. Per the attending progress notes of 04/11 & 04/12: "Laboratory study showing a worsening normocytic anemia. Possibly due to blood loss from surgery mine with anemia of chronic disease." History/Risk Factors: MS, wheelchair confined; CVA '15 w/residual left side weakness, has suprapubic catheter, history of MRSA in sputum & cervical & breast cancer. Clinical indicators: Presented with increased pain, erythema & swelling to left upper extremity. Patient had a left subclavian Port-a-Cath inserted on 02/09 after a malfunctioning port on the right side. Hemoglobin: 10.2 - 8.5 Hematocrit: 24.0 - 27.7 Treatment: Monitoring H/H, IV Rocephin, IV Vanco, IV Morphine, I&D of left upper extremity abscess 04/09. In order to capture the severity of condition, please clarify the type and acuity of anemia and etiology if known: Acute blood loss anemia Acute on chronic blood loss anemia Chronic blood loss anemia Iron deficiency anemia Hemolytic anemia Drug induced anemia Anemia of chronic kidney disease (documented) Unable to determine Other, please specify MTDD
[2018-04-13] MEDS ORDERED: DIAZEPAM 5 MG TAB PO STA (11:12)
--- NOTE | 2018-04-13 11:44 | CDI ---
Last Revision, June 2017 Documentation Clarification Form Date: 04/13/2018 11:08:43 AM From: Selena MetzSANTOS, CCDS Admit Date: 04/07/2018 7:00:00 PM Patient Name: Enid Oates Visit Number: [id number] Discharge Date: ATTENTION: The Clinical Documentation Specialists (CDI) and [facility] Coding Staff appreciate your assistance in clarifying documentation. Please respond to the clarification below the line at the bottom and electronically sign. The CDI & [facility] Coding staff will review the response and follow-up if needed. Please note: Queries are made part of the Legal Health Record. If you have any questions, please contact the author of this message via ITS. Keith Sawant MD: Per the History & Physical: "Cellulitis of the left upper extremity, failed outpatient treatment, US from 04/02/2018 revealed fluid pocket measuring 7.22.4 4.8 cm. Status post left subclavian Mediport placement, 02/09/2018 due to malfunctioning right chest Mediport " History/Risk Factors: MS, wheelchair confined; CVA '15 w/residual left side weakness, has suprapubic catheter, history of MRSA in sputum & cervical & breast cancer. Clinical indicators: Presented with increased pain, erythema & swelling to left upper extremity. Treatment: Monitoring H/H, IV Rocephin, IV Vanco, IV Morphine, I&D of left upper extremity abscess 04/09. In your professional opinion, can you please clarify which diagnosis, after study, accounted for the patients presenting symptoms and was the reason chiefly responsible for the admission? Cellulitis & abscess of the left upper extremity o Related to left subclavian Mediport placement o Not related to left subclavian mediport placement o Other cause of the cellulitis & abscess o Unknown or unable to determine Unable to determine . MTDD
--- NOTE | 2018-04-13 11:51 | P.PN ---
Subjective Progress Note Date: 04/13/18 53-year-old female who presented to the emergency room with a chief complaint of increased pain, erythema, and swelling to left upper extremity. Patient had a left subclavian Port-A-Cath inserted on 02/09/[address] García after her port on the right side malfunctioned. The patient states her port has been accessed since that time. She states a few weeks ago she began having redness and pain to the left upper extremity. She was placed on antibiotics, but did not see much improvement and presented to the emergency room for further evaluation. The patient did have a left upper extremity Doppler completed on 04/02/2018 which revealed a fluid pocket measuring 7.22.4 4.8 cm. The patient has a history of multiple sclerosis and utilizes a power chair most of the time. She resides with her at [facility]. 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 She has a suprapubic catheter which was last changed on 03/27/2018. She is a history of seizure disorder with a last reported seizure in July 2017, DVT in December 2017 , cervical cancer, and breast cancer. She also has a history of MRSA in her sputum in 2014. Laboratory data upon admission reveals a white count of 6.0. Hemoglobin 10.2. Platelet count 536. Sodium 142. Potassium 5.1. BUN 11. Creatinine 0.73. Lactic acid 1.5. Phosphorus 4.7. Magnesium 2.1. Troponin negative 1. The patient was started on ceftriaxone and vancomycin and admitted to the hospital. Consultations were placed to infectious disease and general surgery, Dr. García 04/09/2018 Patient seen and examined at the bedside with Dr. Bowers. Patient underwent ultrasound of left upper arm yesterday revealing larger fluid collection measuring 11.[address] scan of left upper extremity completed yesterday revealing fluid collection within the biceps muscle consistent with intramuscular hematoma or seroma. Abscess is not excluded. There is irregular defect across the subcapital aspect of the humeral head consistent with subacute fracture. No displacement. Patient states she slept last night until 3am but has been awake since. She is requesting her Ambien dose to be increased. Patient denies shortness of breath or chest pain. Denies nausea or vomiting. Patient is scheduled for I&D of left upper extremity today 04/10/2018 Patient seen and examined at the bedside. Patient underwent I&D of left upper extremity yesterday with Dr. García. Wound cavity is being packed with wet-to -dry Kerlix. Cultures were taken and results are currently pending. Vital signs remained stable. Temperature this morning 99.4. She is on room air with oxygen saturations greater than 92%. Infectious disease remains on consult. She is receiving vancomycin and Rocephin at this time. 04/11/2018-Per Dr. Bowers Simón is a 53-year-old white female patient of mine previously, she is being cared for by Dr. Radford over at [facility], where she is currently residing. Her is also residing there. She is status post I&D of abscess with cellulitis to the left arm. She is postop day 2. She feels better. Less pain at the site. She denies any chest pains, pressures, or shortness of breath today. She is tolerating her diet. She indicates she sleeping better with Ambien 10 mg along with Restoril. She has chronic ongoing insomnia. Laboratory study showing a worsening normocytic anemia. Possibly due to blood loss from surgery mine with anemia of chronic disease. 04/12/2018-Per Dr. Bowers Patient is feeling a bit fatigued today. We discussed her anemia. This is most likely from blood loss during surgery and anemia of chronic disease combined. She denies any chest pains, pressures, shortness of breath. She indicates she sleeping better with the Ambien and Restoril combination. Orthopedics is seeing her regarding the suspect subacute humeral head fracture of the left shoulder. 04/13/2018 Patient seen and examined at the bedside. Patient states she is sleepy this morning. Patient has a wound VAC to her left upper extremity. She remains on cefazolin. Case discussed with Dr. Grey. Patient will be scheduled for MRI of left upper extremity to further investigate distraction of left humeral head and rule out possibility of osteomyelitis. Depending on MRI results, patient may be discharged back to [facility] today Objective - Vital Signs Vital signs: Vital Signs Temp 97.1 F L 04/13/18 05:33 Pulse 69 04/13/18 05:33 Resp 16 04/13/18 05:33 BP 99/55 04/13/18 05:33 Pulse Ox 94 L 04/13/18 05:33 Intake & Output 04/12/18 04/13/18 04/13/18 18:59 06:59 18:59 Intake Total 1240 Output Total 400 1800 Balance 840 -1800 Intake: IV 400 Sodium Chloride 0.9% 1, 400 000 ml @ 50 mls/hr IV . Q20H [facility] Rx#:[id number] Oral 840 Output: Urine 400 1800 Other: Voiding Method Indwelling Catheter Indwelling Catheter # Bowel Movements 1 - Exam GENERAL: This is a 53-year-old female in no apparent distress at the time of examination. Pleasant and cooperative. HEENT: Head is atraumatic, normocephalic. Pupils are equal, round, and reactive to light. Sclerae anicteric. Conjunctivae are clear. Mucus membranes of the mouth are moist. Neck is supple. RESPIRATORY: Clear to ausculation. No wheezes, rales, or rhonchi. No use of accessory muscles. Patient maintaining oxygen saturation greater than 92%. No chest wall tenderness is noted on palpation or with deep breathing. CARDIOVASCULAR: Regular rate and rhythm. S1 and S2 noted. No systolic or diastolic murmur auscultated. No JVD noted. No S3 or S4 noted. GASTROINTESTINAL: No distention noted. Abdomen soft and round. Normal active bowel sounds auscultated x 4 quadrants. No pain or tenderness noted upon palpation. INTEGUMENTARY: Wound VAC to left upper extremity. No cyanosis. No jaundice. No rashes noted. EXTREMITIES: Left-sided weakness. 2+ peripheral pulses. No evidence of peripheral edema. No calf tenderness noted. NEUROLOGIC: Cranial nerves II-XII intact. PSYCHIATRIC: Awake, alert, and oriented X 3. Appropriate affect. Intact judgement and insight. - Labs CBC & Chem 7: 04/12/18 07:20 04/13/18 08:58 Labs: Abnormal Lab Results - Last 24 Hours (Table) 04/13/18 Range/Units 08:58 Chloride 111 H (98-107) mmol/L Carbon Dioxide 20 L (22-30) mmol/L BUN 5 L (7-17) mg/dL Creatinine 0.47 L (0.52-1.04) mg/dL Calcium 8.1 L (8.4-10.2) mg/dL Microbiology - Last 24 Hours (Table) 04/07/18 17:39 Blood Culture - Preliminary Blood No Growth after 120 hours Assessment and Plan Plan: ASSESSMENT: Cellulitis of the left upper extremity, failed outpatient treatment, US from revealed fluid pocket measuring 7.22.44.8 cm, CT now reveals fluid collection is 11 x 3 cm, status post I&D of left upper arm 04/09/2018, cultures positive for MSSA Status post left subclavian Mediport placement, 02/09/2018 due to malfunctioning right chest Mediport History of multiple sclerosis History of CVA with residual left-sided weakness History of seizure disorder History of DVT, on anticoagulation with Xarelto History of cervical cancer and breast cancer Mild hyperkalemia, resolved Anemia of chronic disease with component of acute blood loss from surgery, per Dr. Bowers Possible subacute fracture of left humeral head per CT, MRI ordered to evaluate and also r/o osteomyelitis PLAN: Infectious disease on consult. Appreciate recommendations and input Continue antibiotics General surgery on consult. Appreciate recommendations and input Continue wound VAC Patient scheduled for MRI of the left shoulder with contrast. Await results Home meds as appropriate Monitor labs GI prophylaxis: Protonix 40 mg PO Daily DVT prophylaxis Xarelto Monitor vital signs and address as appropriate Discharge planning: Patient to return to [facility] Further recommendations pending patient's course Possible discharge this afternoon to [facility] PENDING MRI RESULTS Nurse practitioner note has been reviewed by physician. Signing provider agrees with the documented findings, assessment, and plan of care.
[2018-04-13] MEDS: MULTIVITAMINS, THERA 1 EACH TAB PO SCH (12:46)
[2018-04-13] MEDS: SODIUM CHLORIDE 0.9% 1,000 ML IV SCH (12:48)
--- NOTE | 2018-04-13 13:10 | PN ---
PROGRESS NOTE DATE OF SERVICE: 04/13/2018. REASON FOR FOLLOWUP: 1. Left upper arm MSSA abscess. 2. Abnormal CT involving the humeral head. INTERVAL HISTORY: The patient is currently afebrile. She is breathing comfortably. Denies having any chest pain or shortness of breath or cough. No abdominal pain. Pain to the left medial arm area has improved. Denies having any pain to the left shoulder area. Denies any history of any trauma. PHYSICAL EXAMINATION: On examination, blood pressure 102/54 with a pulse of 67, temperature 98.1. She is 95% on room air. General description is a middle-aged female lying in bed in no distress. RESPIRATORY SYSTEM: Unlabored breathing, clear to auscultation anteriorly. HEART: S1, S2. Regular rate and rhythm. ABDOMEN: Soft, no tenderness. Left medial arm wound is currently packed. No significant was noticed. LABS: BUN of 5, creatinine 0.47. Wound culture with MSSA. CT was reviewed with Dr. Martinez who is concerned about the humeral head destructive lesion with concern for possible osteo or septic arthritis. DIAGNOSTIC IMPRESSION AND PLAN: Patient with left medial upper arm abscess that has been drained. Patient was bacteremic. Now with abnormal CT of the left humeral head, this case was discussed in detail with Dr. Recinos from the Orthopedics. We will obtain a MRI of the left shoulder area to make sure there is no evidence of any septic arthritis that may need IV antibiotic therapy. In the meantime, we will keep the patient on IV cefazolin and wound VAC. If the MRI was not suggestive of or septic arthritis, antibiotic will transition to p.o. Keflex otherwise IV. Plan of care was discussed in detail with the nurse practitioner for the admitting team as well as with Orthopedics. MMODL / IJN: [id number] /
--- NOTE | 2018-04-13 16:19 | P.PN ---
Progress Note - Text Progress Note Date: 04/13/18 Patient is a pleasant 53-year-old female who is seen and examined at bedside or following evaluation regards to her left shoulder. Previous computed tomography scan of the left upper extremity showed possible left subacute humeral head fracture. Patient was seen and examined yesterday by Rafael Hammonds PA-C. X-rays of the left shoulder were taken and interpreted at that time. X- rays did not show evidence of humeral head fracture or dislocation within the left shoulder. Patient continues to have a sling intact over the left upper extremity. She states she has some soreness of the left shoulder but no significant pain. She is able to perform active range of motion without significant difficulty. She continues be seen in exam by Dr. Grey in infectious disease. She does have an abscess over the left biceps and currently has a wound VAC in place following drainage of the abscess. Dr. Grey would like to to rule out osteomyelitis at the left shoulder and upper humerus I her to discharge. After further discussion with Dr. Grey, we were planning to obtain an MRI of the left shoulder but this is unable to be performed as the patient has a neurostimulator with battery placement. Patient has no new complaints of the bedside today. Her pain is adequately controlled. Physical Exam: Patient is awake, alert, and oriented 3 Vital signs stable Good chest excursion with deep inspiration and expiration Abdomen soft nontender Sling intact over the left upper extremity. Patient is able to remove left upper extremity from sling and perform active range of motion of left shoulder without significant difficulty No significant pain with palpation over the left shoulder No evidence of significant erythema, bruising, laceration, or obvious signs of infection over the left shoulder Wound VAC in place over the left biceps Pertinent studies: X-rays the left shoulder taken on 04/12/2018: No evidence of fracture, dislocation, or other acute osseous lesion is seen; fracture visualized on the patient's recent computed tomography scan is not visualized on today's examination Assessment: Left shoulder pain without evidence of fracture Left biceps abscess Left upper extremity cellulitis Abscess cultures positive for MSSA Possible osteomyelitis left upper extremity, proximal humerus Plan: 1. Patient has been discussed in detail with Dr. Mg Ibrara. Dr. Grey has also discussed patient care with Dr. Mg Ibarra. Patient does not appear to have evidence of fracture in her left proximal humerus. She is active range of motion of the left shoulder without significant difficulty. She has mild soreness with palpation over the left shoulder without significant pain. She needs to be treated for diet lattice of the left upper extremity with an abscess over the left biceps. Left upper extremity abscess has been drained and wound VAC was placed by Dr. Grey. After further evaluation, Dr. Grey wanted to order an MRI of the left shoulder to rule out osteomyelitis but patient is unable to have an MRI due to neurostimulator and battery placement. We'll currently planned to order a nuclear bone scan three-phase for the left upper extremity and proximal humeral head to rule out osteomyelitis. We are currently planning to continue conservative treatment regards to her left shoulder as we do not have evidence of fracture of the left humeral head and patient does not show clinical evidence of fracture of the left shoulder. She may continue to use her left upper sternal a sling for comfort support with increased activities. She may remove the sling and perform active range of motion of the left shoulder to tolerance. We'll plan to have her follow-up in approximately 1 week for further evaluation in regards to her left shoulder. 2. Patient will continue be seen and examined by Dr. Grey in infectious disease 3. Patient will continue be seen by medicine 4. Order for nuclear medicine bone scan three-phase for the left upper extremity, humeral head has been ordered and will plan to be performed tomorrow. Following those results, Dr. Grey May plan for discharge to rehabilitation facility tomorrow, 04/14/2018. If the bone scan does not show evidence of osteomyelitis, we will also plan for her to be cleared for discharged from orthopedic standpoint and we'll plan to have her follow up in outpatient setting for further evaluation. 5. Following discharge, patient may follow-up with Serge De La Cruz PA-C or Dr. Mg Recinos at [facility] in approximately 1 week for further evaluation 6. Patient has been discussed in detail with Dr. Mg Recinos and he agrees with this plan
[2018-04-13] MEDS: TEMAZEPAM 15 MG CAP PO PRN (21:57)
[2018-04-13] MEDS: ZOLPIDEM 10 MG TAB PO PRN (21:57)
[2018-04-13] MEDS: traZODone HCL 50 MG TAB PO SCH (21:58)
[2018-04-13] MEDS: PROPRANOLOL LA 80 MG CAP.SA.24H PO SCH (21:58)
[2018-04-13] MEDS: MELATONIN 5 MG TABLET PO SCH (21:58)
[2018-04-13] MEDS: TOPIRAMATE 100 MG TAB PO SCH (21:58)
[2018-04-13] MEDS: SENNOSIDES 8.6 MG TAB PO SCH (21:59)
[2018-04-14] MEDS: Acetaminophen-Codeine 300-30mg TAB PO PRN ×3 (00:33→14:53)
[2018-04-14] MEDS: LEVOTHYROXINE 100 MCG TAB PO SCH (05:54)
[2018-04-14] MEDS: oxyCODONE-APAP 10-325MG 1 EACH TAB PO PRN ×3 (05:56→22:14)
[2018-04-14] MEDS: LIDOCAINE 5% PATCH TOPICAL SCH ×2 (07:29→22:02)
[2018-04-14] MEDS: ceFAZolin IN SWFI 2 GM/20 ML SYRINGE IVP SCH ×2 (07:29→16:23)
[2018-04-14] MEDS: OXYBUTYNIN 10 MG TAB.ER.24 PO SCH ×3 (07:30→22:05)
[2018-04-14] MEDS: PANTOPRAZOLE 40 MG TABLET PO SCH (07:30)
[2018-04-14] MEDS: ASPIRIN 325 MG TAB PO SCH (07:31)
[2018-04-14] MEDS: tiZANidine 4 MG TAB PO SCH ×2 (07:31→22:04)
[2018-04-14] MEDS: MAGNESIUM OXIDE 400 MG TAB PO SCH ×2 (07:31→22:04)
[2018-04-14] MEDS: DOCUSATE 100 MG CAP PO SCH (07:31)
[2018-04-14] MEDS: RIVAROXABAN 20 MG TAB PO SCH (07:31)
[2018-04-14] MEDS: PEG BOTH EYES SCH ×2 (07:32→22:05)
[2018-04-14] MEDS: PROPYLENE GLYCOL BOTH EYES SCH ×2 (07:32→22:05)
[2018-04-14] MEDS: LACOSAMIDE 150 MG TABLET PO SCH ×2 (07:35→22:10)
--- NOTE | 2018-04-14 09:04 | CDI ---
Last Revision, June 2017 Acute if osteomyelitis is present. Nuclear medicine bone scan has not yet been completed to determine the presence of osteomyelitis. The patient had a Mediport changed from the right anterior chest wall and placed into the left subclavian. Following this procedure the patient began to experience cellulitis of the left upper extremity and failed outpatient antibiotic treatment. An ultrasound Doppler performed on 04/02/2018 showed fluid collection of the left upper extremity. A repeat ultrasound Doppler taken on showed a larger fluid collection at 11.5 cm 5.2 cm. Patient underwent drainage with wound VAC placement on 04/09/2018. Patient has been seen and examined by Dr. Grey in infectious disease who was concerned for osteomyelitis to the left upper extremity following drainage and wound VAC placement. Nuclear medicine bone scan is scheduled for today for the left upper extremity. Documentation Clarification Form Date: 04/14/2018 8:53:23 AM From: Selena Metz CCS, CCDS Admit Date: 04/07/2018 7:00:00 PM Patient Name: Enid Oates Visit Number: [id number] Discharge Date: ATTENTION: The Clinical Documentation Specialists (CDI) and [facility] Coding Staff appreciate your assistance in clarifying documentation. Please respond to the clarification below the line at the bottom and electronically sign. The CDI & [facility] Coding staff will review the response and follow-up if needed. Please note: Queries are made part of the Legal Health Record. If you have any questions, please contact the author of this message via ITS. Yossi Zarate., DO: Osteomyelitis has been documented in the 04/13 orthopedic progress note as: "Possible osteomyelitis left upper extremity, proximal humerus." History/Risk Factors: MS, CVA w/residual left sided weakness, Seizure disorder, Cervical & Breast Cancer. Clinical Indicators: Presented with left upper extremity cellulitis & abscess that has been drained, cultures positive for MSSA, has wound VAC. Thought to have possible fracture of left humeral head, ruled out. Labs: Phosphorus 4.7, TCK 25, Total protein 8.3 X-Ray Results: 04/12 Left shoulder XR: Nonvisualization of the patient's known fracture of the humeral head. Treatment: Patient is unable to have an MRI due to having neurostimulator. IV Rocephin, IV fluid 100, IV Vancomycin, IV Ms. In your professional opinion, please specify the acuity of the patient's possible osteomyelitis: Acute Chronic Acute on Chronic Unable to Determine MTDD
--- NOTE | 2018-04-14 12:09 | P.PN ---
Subjective Progress Note Date: 04/14/18 53-year-old seen at the bedside left upper arm with a wound VAC in place was scheduled today for an MRI but could not be done counterindication patient has a neurostimulator with battery placement unable to have an MRI. Patients being followed by infectious disease Dr. Grey. Patient is able to perform active range of motion involving the left arm. Patient does have an abscess over the left biceps with a wound VAC is in place. Patient did undergo an incision and drainage of the left arm abscess in the OR on the 09 of April. Orthopedic recommendations were noted and reviewed orthopedics plan to do a nuclear bone scan of the left upper extremity and proximal humeral head to rule out osteomyelitis Objective - Vital Signs Vital signs: Vital Signs Temp 97.0 F L 04/14/18 06:34 Pulse 67 04/14/18 06:34 Resp 18 04/14/18 06:34 BP 111/67 04/14/18 06:34 Pulse Ox 97 04/14/18 06:34 Intake & Output 04/13/18 04/14/18 04/14/18 18:59 06:59 18:59 Intake Total 600 200 Output Total 2850 1525 Balance -2250 -1525 200 Weight 73.482 kg Intake: Oral 600 200 Output: Drainage 50 Left Upper Arm 50 Urine 2800 1525 Other: Voiding Method Indwelling Catheter Indwelling Catheter # Bowel Movements 1 - Exam GENERAL APPEARANCE: 53 -year-old female patient is alert, oriented x 3 in no acute distress talkative. States pain medication effective for pain control VITAL SIGNS: Reviewed HEENT: Head is normocephalic and atraumatic. Pupils are equal and reactive. The nares are patent. Oropharynx is clear without lesions. NECK: Supple without lymphadenopathy. Traches midline. HEART: S1, S2. Regular rate and rhythm. No murmur noted denying chest pain LUNGS: No crackles or wheezes are heard. Adequate air movement bilaterally on room air ABDOMEN: Soft, nontender, nondistended with good bowel sounds. No peritoneal signs. No palpable organomegaly or masses. Suprapubic catheter in place omi urine EXTREMITIES: Left upper extremity wound VAC in place dressings dry Trace pedal edema no calf tenderness left extremity weakness - Labs CBC & Chem 7: 04/12/18 07:20 04/13/18 08:58 Labs: Microbiology - Last 24 Hours (Table) 04/09/18 13:32 Anaerobic Culture - Final Arm - Left 04/07/18 17:39 Blood Culture - Final Blood No Growth after 144 hours Assessment and Plan Assessment: Impression Status post 02/09/2018 malfunction MediPort placement left subclavian after removing port from right side Present on admission cellulitis left upper extremity failed outpatient treatment Dopplers to the left upper extremity done on April 02 show fluid measuring 7.2 x 4.8 Wheelchair bedbound from [place] History of a prior CVA with left-sided weakness Present on admission hyperkalemic prior DVT on Xarelto Left upper arm abscess status post incision and drainage done on April 09 Left shoulder pain without evidence of fracture Left bicep abscess Abscess cultures positive for MSSA Possible osteomyelitis left upper extremity, proximal humerus Left upper extremity cellulitis Plan Continue recommendations by orthopedic service Continue recommendations by Dr. Grey infectious disease Wound VAC to the left upper extremity as ordered Continue Xarelto DVT and GI prophylaxis pain control will follow with you The above impression and plan of care have been discussed and directed by signing physician. Odette Vo nurse practitioner acting as scribe for signing physician.
--- NOTE | 2018-04-14 12:18 | P.DS ---
Providers Date of admission: 04/07/18 19:00 Expected date of discharge: 04/14/18 Attending physician: Keith Bowers Consults: 04/07/18 18:57 Consult Physician Routine Consulting Provider: Roland García Consult Reason/Comments: cellulitis Do you want consulting provider notified?: Yes Consult Physician Routine Consulting Provider: Yesenia Grey Consult Reason/Comments: cellulitis Do you want consulting provider notified?: Yes 04/11/18 12:48 Consult Physician Routine Consulting Provider: Titi Salamanca Consult Reason/Comments: possible subacute fracture left humeral head Do you want consulting provider notified?: Yes Primary care physician: Keith Bowers [facility] Course: 53-year-old female who presented to the emergency room with a chief complaint of increased pain, erythema, and swelling to left upper extremity. Patient had a left subclavian Port-A-Cath inserted on 02/09/[address] García after her port on the right side malfunctioned. The patient states her port has been accessed since that time. She states a few weeks ago she began having redness and pain to the left upper extremity. She was placed on antibiotics, but did not see much improvement and presented to the emergency room for further evaluation. The patient did have a left upper extremity Doppler completed on 04/02/2018 which revealed a fluid pocket measuring 7.22.4 4.8 cm. The patient has a history of multiple sclerosis and utilizes a power chair most of the time. She resides with her at [facility]. 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 She has a suprapubic catheter which was last changed on 03/27/2018. She is a history of seizure disorder with a last reported seizure in July 2017, DVT in December 2017 , cervical cancer, and breast cancer. She also has a history of MRSA in her sputum in 2015. Laboratory data upon admission reveals a white count of 6.0. Hemoglobin 10.2. Platelet count 536. Sodium 142. Potassium 5.1. BUN 11. Creatinine 0.73. Lactic acid 1.5. Phosphorus 4.7. Magnesium 2.1. Troponin negative 1. The patient was started on ceftriaxone and vancomycin and admitted to the hospital. Consultations were placed to infectious disease and general surgery, Dr. García 04/09/2018 Patient seen and examined at the bedside with Dr. Bowers. Patient underwent ultrasound of left upper arm yesterday revealing larger fluid collection measuring 11.[address] scan of left upper extremity completed yesterday revealing fluid collection within the biceps muscle consistent with intramuscular hematoma or seroma. Abscess is not excluded. There is irregular defect across the subcapital aspect of the humeral head consistent with subacute fracture. No displacement. Patient states she slept last night until 3am but has been awake since. She is requesting her Ambien dose to be increased. Patient denies shortness of breath or chest pain. Denies nausea or vomiting. Patient is scheduled for I&D of left upper extremity today 04/10/2018 Patient seen and examined at the bedside. Patient underwent I&D of left upper extremity yesterday with Dr. García. Wound cavity is being packed with wet-to -dry Kerlix. Cultures were taken and results are currently pending. Vital signs remained stable. Temperature this morning 99.4. She is on room air with oxygen saturations greater than 92%. Infectious disease remains on consult. She is receiving vancomycin and Rocephin at this time. 04/11/2018-Per Dr. Bowers Simón is a 53-year-old white female patient of mine previously, she is being cared for by Dr. Prabhakar brady at [facility], where she is currently residing. Her is also residing there. She is status post I&D of abscess with cellulitis to the left arm. She is postop day 2. She feels better. Less pain at the site. She denies any chest pains, pressures, or shortness of breath today. She is tolerating her diet. She indicates she sleeping better with Ambien 10 mg along with Restoril. She has chronic ongoing insomnia. Laboratory study showing a worsening normocytic anemia. Possibly due to blood loss from surgery mine with anemia of chronic disease. 04/12/2018-Per Dr. Bowers Patient is feeling a bit fatigued today. We discussed her anemia. This is most likely from blood loss during surgery and anemia of chronic disease combined. She denies any chest pains, pressures, shortness of breath. She indicates she sleeping better with the Ambien and Restoril combination. Orthopedics is seeing her regarding the suspect subacute humeral head fracture of the left shoulder. 04/13/2018 Patient seen and examined at the bedside. Patient states she is sleepy this morning. Patient has a wound VAC to her left upper extremity. She remains on cefazolin. Case discussed with Dr. Grey. Patient will be scheduled for MRI of left upper extremity to further investigate distraction of left humeral head and rule out possibility of osteomyelitis. Depending on MRI results, patient may be discharged back to [facility] today 04/14/2018 Patient seen and examined at the bedside. Wound vac remains intact. Vital signs stable. Patient unable to MRI yesterday due to spine stimulator. Patient is having nuclear bone study completed today to rule out osteomyelitis of left humerus. The patient is otherwise stable and cleared for discharge back to [facility] this afternoon. Nursing to speak with Dr. Grey prior to discharge to obtain antibiotic recommendations. DISCHARGE DIAGNOSIS: Cellulitis of the left upper extremity, failed outpatient treatment, US from revealed fluid pocket measuring 7.22.44.8 cm, CT now reveals fluid collection is 11 x 3 cm, status post I&D of left upper arm 04/09/2018, cultures positive for MSSA Status post left subclavian Mediport placement, 02/09/2018 due to malfunctioning right chest Mediport History of multiple sclerosis History of CVA with residual left-sided weakness History of seizure disorder History of DVT, on anticoagulation with Xarelto History of cervical cancer and breast cancer Mild hyperkalemia, resolved Anemia of chronic disease with component of acute blood loss from surgery, per Dr. Bowers Possible subacute fracture of left humeral head per CT, ruled out per xray, nuclear bone scan ordered to r/o osteomyelitis Nurse practitioner note has been reviewed by physician. Signing provider agrees with the documented findings, assessment, and plan of care. Patient Condition at Discharge: Fair Plan - Discharge Summary Discharge Rx Participant: No New Discharge Prescriptions: New Zolpidem [Ambien] 10 mg PO HS PRN #3 tab PRN Reason: Insomnia Continue Propranolol HCl [Inderal LA] 160 mg PO HS Topiramate [Topamax] 400 mg PO HS Aspirin 325 mg PO DAILY Levothyroxine Sodium [Synthroid] 100 mcg PO DAILY Cyanocobalamin [Vitamin B-12 Injection] 1,000 mcg SQ Q30D Potassium Chloride ER [K-Dur 10] 10 meq PO DAILY Omeprazole [PriLOSEC] 40 mg PO DAILY tiZANidine HCL [Zanaflex] 4 mg PO BID Sennosides [Senokot] 8.6 mg PO HS Docusate [Colace] 100 mg PO DAILY traZODone HCL 50 mg PO HS Rivaroxaban [Xarelto] 20 mg PO DAILY Oxybutynin ER [Ditropan Xl] 10 mg PO TID Propylene Glycol/Peg 400 [Systane Ultra 0.4-0.3% Eye Drp] 1 drop BOTH EYES Q12H Magnesium Oxide [Mag-Ox] 125 mg PO Q12H Lidocaine 5% Patch [Lidoderm 5% Patch] 1 patch TOPICAL Q12H Melatonin 5 mg PO HS Lactulose 20 gm PO DAILY PRN PRN Reason: Constipation Acetaminophen-Codeine 300-30mg [Tylenol w/codeine #3] 1 tab PO Q8HR PRN #9 tab PRN Reason: Pain Or Fever > 100.5 fentaNYL 12MCG/HR PATCH [Duragesic 12MCG/HR] 1 patch TRANSDERM Q72H #1 patch fentaNYL 25MCG/HR PATCH [Duragesic 25MCG/HR] 1 patch TRANSDERM Q72H #1 patch Haloperidol [Haldol] 0.5 mg PO BID PRN #6 tab PRN Reason: nausea,vomiting,anxiety LORazepam [Ativan] 0.5 mg PO Q4H PRN #18 tab PRN Reason: Anxiety oxyCODONE-APAP 10-325MG [Percocet 10-325 mg] 1 tab PO Q6HR PRN #12 tab PRN Reason: pain Temazepam [Restoril] 15 mg PO HS PRN #3 cap PRN Reason: Insomnia Lacosamide [Vimpat] 150 mg PO BID #6 tablet No Action Omeprazole [PriLOSEC] 40 mg PO DAILY Discharge Medication List Propranolol HCl [Inderal LA] 160 mg PO HS 03/07/14 [History] Topiramate [Topamax] 400 mg PO HS 03/07/14 [History] Aspirin 325 mg PO DAILY 01/09/15 [History] Levothyroxine Sodium [Synthroid] 100 mcg PO DAILY 07/02/16 [History] Cyanocobalamin [Vitamin B-12 Injection] 1,000 mcg SQ Q30D 08/05/16 [History] Potassium Chloride ER [K-Dur 10] 10 meq PO DAILY 06/13/17 [History] Omeprazole [PriLOSEC] 40 mg PO DAILY 07/07/17 [History] tiZANidine HCL [Zanaflex] 4 mg PO BID 07/07/17 [History] Docusate [Colace] 100 mg PO DAILY 02/03/18 [History] Rivaroxaban [Xarelto] 20 mg PO DAILY 02/03/18 [History] Sennosides [Senokot] 8.6 mg PO HS 02/03/18 [History] traZODone HCL 50 mg PO HS 02/03/18 [History] Lidocaine 5% Patch [Lidoderm 5% Patch] 1 patch TOPICAL Q12H 04/02/18 [History] Magnesium Oxide [Mag-Ox] 125 mg PO Q12H 04/02/18 [History] Melatonin 5 mg PO HS 04/02/18 [History] Oxybutynin ER [Ditropan Xl] 10 mg PO TID 04/02/18 [History] Propylene Glycol/Peg 400 [Systane Ultra 0.4-0.3% Eye Drp] 1 drop BOTH EYES Q12H 04/02/18 [History] Lactulose 20 gm PO DAILY PRN 04/07/18 [History] Omeprazole [PriLOSEC] 40 mg PO DAILY 04/07/18 [History] Acetaminophen-Codeine 300-30mg [Tylenol w/codeine #3] 1 tab PO Q8HR PRN #9 tab 04/13/18 [Rx] Haloperidol [Haldol] 0.5 mg PO BID PRN #6 tab 04/13/18 [Rx] LORazepam [Ativan] 0.5 mg PO Q4H PRN #18 tab 04/13/18 [Rx] Lacosamide [Vimpat] 150 mg PO BID #6 tablet 04/13/18 [Rx] Temazepam [Restoril] 15 mg PO HS PRN #3 cap 04/13/18 [Rx] Zolpidem [Ambien] 10 mg PO HS PRN #3 tab 04/13/18 [Rx] fentaNYL 12MCG/HR PATCH [Duragesic 12MCG/HR] 1 patch TRANSDERM Q72H #1 patch 07/31 [Rx] fentaNYL 25MCG/HR PATCH [Duragesic 25MCG/HR] 1 patch TRANSDERM Q72H #1 patch 07/31 [Rx] oxyCODONE-APAP 10-325MG [Percocet 10-325 mg] 1 tab PO Q6HR PRN #12 tab 04/13/18 [Rx] Follow up Appointment(s)/Referral(s): Serge De La Cruz PAC [PHYSICIAN RACE RELATIONS ADVISER] - 1 Week (Patient may follow-up with Serge De La Cruz PA-C or Dr. Mg Recinos at [facility] in 1 week following discharge. ) [facility], [NON-STAFF] - As Needed Keith Bowers MD [Primary Care Provider] - 1 Week Yesenia Grey MD [STAFF PHYSICIAN] - 1 Week Roland García MD [STAFF PHYSICIAN] - 1 Week Activity/Diet/Wound Care/Special Instructions: 1. Patient may use sling over the left upper extremity for comfort support as needed 2. Patient may remove sling over the left upper extremity and perform active range of motion of the left shoulder to tolerance Discharge Disposition: TRANSFER TO SNF/ECF
[2018-04-14] MEDS: MULTIVITAMINS, THERA 1 EACH TAB PO SCH (12:59)
[2018-04-14] MEDS: SODIUM CHLORIDE 0.9% 1,000 ML IV SCH (12:59)
--- NOTE | 2018-04-14 14:38 | NM ---
EXAMINATION TYPE: NM bone 3 phase DATE OF EXAM: 04/14/2018 COMPARISON: Correlation CT and radiographs 04/08/2018 and 04/12/2018, respectively. HISTORY: 53-year-old female pain proximal left humerus for 1.5 months, rule out upper extremity osteo myelitis. Patient with bicipital fluid collection drained on 04/09/2018 with wound VAC applied. Technique: Triple phase bone scintigraphy was performed following the injection of 20.5 mCi Tc 99m MD P. Imaging was centered along the thorax. Immediate images, pool images, and 3.5 hours post injectio n images acquired. Additional whole body delayed scan was acquired given the patient's history of can cer. FINDINGS: Limited assessment on flow images given low centering along the thorax. There seems to be asymmetric increased activity at the left shoulder. Bone images show asymmetric increased activity at the left shoulder. Delayed images showed focal intense rounded activity at the left humeral head. Images show focal intense activity at the left humeral head and degenerative uptake at the knees and hind foot regions. IMPRESSION: Three-phase bone scan abnormality involving the left humeral head. Osteomyelitis not excluded especia lly if there is no history of injury or fracture at this location.
[2018-04-14 14:55] VITALS: BMI 27.8
[2018-04-14] MEDS: TOPIRAMATE 100 MG TAB PO SCH (22:03)
[2018-04-14] MEDS: MELATONIN 5 MG TABLET PO SCH (22:03)
[2018-04-14] MEDS: traZODone HCL 50 MG TAB PO SCH (22:04)
[2018-04-14] MEDS: PROPRANOLOL LA 80 MG CAP.SA.24H PO SCH (22:04)
[2018-04-14] MEDS: TEMAZEPAM 15 MG CAP PO PRN (22:10)
[2018-04-14] MEDS: ZOLPIDEM 10 MG TAB PO PRN (22:10)
[2018-04-14] MEDS: SENNOSIDES 8.6 MG TAB PO SCH (22:10)
--- NOTE | 2018-04-14 22:29 | PN ---
PROGRESS NOTE DATE OF SERVICE: 04/14/2018 REASON FOR FOLLOWUP: 1. Left medial arm abscess. 2. Abnormal humeral head with a question of osteomyelitis. INTERVAL HISTORY: The patient is currently afebrile. She is breathing comfortably. Denies having any chest pain, shortness of breath or cough. No abdominal pain or any worsening pain to the left upper arm area. PHYSICAL EXAMINATION: Blood pressure 122/69 with a pulse of 54, temperature 97.8. She is 99% on room air. General description is a middle-aged female lying in bed in no distress. RESPIRATORY SYSTEM: Unlabored breathing. Clear to auscultation anteriorly. HEART: S1, S2. Regular rate and rhythm. ABDOMEN: Soft. No tenderness. Left upper arm is currently dressed up. No obvious drainage on the dressing. LABS: BUN of 5, creatinine 0.47. Blood culture has been negative. Left arm abscess culture positive for MSSA. The bone scan came back positive, which was reviewed with the radiologist. DIAGNOSTIC IMPRESSION AND PLAN: Patient with left medial upper arm abscess, status post drainage, in a patient whose CT also showed abnormality of the humeral head. An MRI was ordered; however, it could not be completed because of the pain stimulator the patient has. She did have a bone scan that was reviewed with the radiologist and is lighting up to all the 3 stages, the significance of which is not clear, as it could be seen both in osteomyelitis as well as fracture. However, the patient does not give any history of any trauma or fall. Avascular necrosis will be the other possibility in a patient who has a history of more likely exposed to high doses of steroids. However, we need to clarify, arrive at the correct diagnosis for better treatment. Further diagnostic options will be discussed with Orthopedics. Will hold her discharge at this point. Continue with cefazolin 2 grams q.8. Continue with supportive care. MMODL / IJN: [id number] /
[2018-04-15] MEDS: ceFAZolin IN SWFI 2 GM/20 ML SYRINGE IVP SCH ×4 (00:56→23:48)
[2018-04-15] MEDS: Acetaminophen-Codeine 300-30mg TAB PO PRN ×4 (00:57→23:50)
[2018-04-15] MEDS: LEVOTHYROXINE 100 MCG TAB PO SCH (06:13)
[2018-04-15] MEDS: oxyCODONE-APAP 10-325MG 1 EACH TAB PO PRN ×3 (06:24→20:59)
[2018-04-15] MEDS: ASPIRIN 325 MG TAB PO SCH (08:15)
[2018-04-15] MEDS: RIVAROXABAN 20 MG TAB PO SCH ×2 (08:15→16:43)
[2018-04-15] MEDS: tiZANidine 4 MG TAB PO SCH ×2 (08:15→21:03)
[2018-04-15] MEDS: PANTOPRAZOLE 40 MG TABLET PO SCH (08:16)
[2018-04-15] MEDS: DOCUSATE 100 MG CAP PO SCH (08:16)
[2018-04-15] MEDS: LACOSAMIDE 150 MG TABLET PO SCH ×2 (08:16→21:28)
[2018-04-15] MEDS: LIDOCAINE 5% PATCH TOPICAL SCH ×2 (08:16→21:01)
[2018-04-15] MEDS: MAGNESIUM OXIDE 400 MG TAB PO SCH ×2 (08:16→21:02)
[2018-04-15] MEDS: OXYBUTYNIN 10 MG TAB.ER.24 PO SCH ×3 (08:16→21:03)
[2018-04-15 11:33] LABS: Anisocytosis Slight; Basophils % (A) 1 %; Eosinophils # (A) 0.1 k/uL (0-0.7); Eosinophils % (A) 2 %; HCT 29.8 % (34.0-46.0); HGB 8.9 gm/dL (11.4-16.0); Hypochromasia Marked; Lymphocytes # (A) 0.6 k/uL (1.0-4.8); Lymphocytes % (A) 12 %; MCH 25.7 pg (25.0-35.0); MCV 85.5 fL (80.0-100.0); Mean Platelet Volume 6.8; Monocytes # (A) 0.2 k/uL (0-1.0); Monocytes % (A) 5 %; Neutrophils # (A) 3.9 k/uL (1.3-7.7); Neutrophils % (A) 80 %; Platelet Count 403 k/uL (150-450); RBC 3.48 m/uL (3.80-5.40); RDW 16.5 % (11.5-15.5)
[2018-04-15 11:43] LABS: Anion Gap 8 mmol/L; Blood Urea Nitrogen 4 mg/dL (7-17); C Reactive Protein 52.9 mg/L (<10.0); Calcium 8.4 mg/dL (8.4-10.2); Carbon Dioxide 22 mmol/L (22-30); Chloride 110 mmol/L (98-107); Glucose 89 mg/dL (74-99); Potassium 3.7 mmol/L (3.5-5.1); Sodium 140 mmol/L (137-145)
--- NOTE | 2018-04-15 13:12 | P.PN ---
Subjective 53-year-old female who presented to the emergency room with a chief complaint of increased pain, erythema, and swelling to left upper extremity. Patient had a left subclavian Port-A-Cath inserted on 02/09/[address] García after her port on the right side malfunctioned. The patient states her port has been accessed since that time. She states a few weeks ago she began having redness and pain to the left upper extremity. She was placed on antibiotics, but did not see much improvement and presented to the emergency room for further evaluation. The patient did have a left upper extremity Doppler completed on 04/02/2018 which revealed a fluid pocket measuring 7.22.4 4.8 cm. The patient has a history of multiple sclerosis and utilizes a power chair most of the time. She resides with her at [facility]. 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 She has a suprapubic catheter which was last changed on 03/27/2018. She is a history of seizure disorder with a last reported seizure in July 2017, DVT in December 2017 , cervical cancer, and breast cancer. She also has a history of MRSA in her sputum in 2014. Laboratory data upon admission reveals a white count of 6.0. Hemoglobin 10.2. Platelet count 536. Sodium 142. Potassium 5.1. BUN 11. Creatinine 0.73. Lactic acid 1.5. Phosphorus 4.7. Magnesium 2.1. Troponin negative 1. The patient was started on ceftriaxone and vancomycin and admitted to the hospital. Consultations were placed to infectious disease and general surgery, Dr. García 04/09/2018 Patient seen and examined at the bedside with Dr. Bowers. Patient underwent ultrasound of left upper arm yesterday revealing larger fluid collection measuring 11.[address] scan of left upper extremity completed yesterday revealing fluid collection within the biceps muscle consistent with intramuscular hematoma or seroma. Abscess is not excluded. There is irregular defect across the subcapital aspect of the humeral head consistent with subacute fracture. No displacement. Patient states she slept last night until 3am but has been awake since. She is requesting her Ambien dose to be increased. Patient denies shortness of breath or chest pain. Denies nausea or vomiting. Patient is scheduled for I&D of left upper extremity today 04/10/2018 Patient seen and examined at the bedside. Patient underwent I&D of left upper extremity yesterday with Dr. García. Wound cavity is being packed with wet-to -dry Kerlix. Cultures were taken and results are currently pending. Vital signs remained stable. Temperature this morning 99.4. She is on room air with oxygen saturations greater than 92%. Infectious disease remains on consult. She is receiving vancomycin and Rocephin at this time. 04/11/2018-Per Dr. Bowers Simón is a 53-year-old white female patient of mine previously, she is being cared for by Dr. Radford over at [facility], where she is currently residing. Her is also residing there. She is status post I&D of abscess with cellulitis to the left arm. She is postop day 2. She feels better. Less pain at the site. She denies any chest pains, pressures, or shortness of breath today. She is tolerating her diet. She indicates she sleeping better with Ambien 10 mg along with Restoril. She has chronic ongoing insomnia. Laboratory study showing a worsening normocytic anemia. Possibly due to blood loss from surgery mine with anemia of chronic disease. 04/12/2018-Per Dr. Bowers Patient is feeling a bit fatigued today. We discussed her anemia. This is most likely from blood loss during surgery and anemia of chronic disease combined. She denies any chest pains, pressures, shortness of breath. She indicates she sleeping better with the Ambien and Restoril combination. Orthopedics is seeing her regarding the suspect subacute humeral head fracture of the left shoulder. 04/13/2018 Patient seen and examined at the bedside. Patient states she is sleepy this morning. Patient has a wound VAC to her left upper extremity. She remains on cefazolin. Case discussed with Dr. Grey. Patient will be scheduled for MRI of left upper extremity to further investigate distraction of left humeral head and rule out possibility of osteomyelitis. Depending on MRI results, patient may be discharged back to [facility] today 04/14/2018 Patient seen and examined at the bedside. Wound vac remains intact. Vital signs stable. Patient unable to MRI yesterday due to spine stimulator. Patient is having nuclear bone study completed today to rule out osteomyelitis of left humerus. The patient is otherwise stable and cleared for discharge back to [facility] this afternoon. Nursing to speak with Dr. Grey prior to discharge to obtain antibiotic recommendations. 04/15/2018 Patient was seen and examined again today. Her discharge is been on hold his Dr. Grey is unsure whether her on IV antibiotics or not. 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 He informs orthopedics and told him that they believe it to be osteomyelitis. He would like her to have a bone biopsy tomorrow. If they would not like to do this he will plan on a PICC line and aspiration of the left shoulder joint. In the meantime her Xarelto be held. She denies any chest pains, pressures, or shortness of breath. Objective - Vital Signs Vital signs: Vital Signs Temp 97.0 F L 04/15/18 06:25 Pulse 71 04/15/18 06:25 Resp 18 04/15/18 06:25 BP 116/66 04/15/18 06:25 Pulse Ox 96 04/15/18 06:25 Intake & Output 04/14/18 04/15/18 04/15/18 18:59 06:59 18:59 Intake Total 320 160 Output Total 1500 2300 Balance -1180 -2140 Weight 73.482 kg Intake: IV 160 Sodium Chloride 0.9% 1, 160 000 ml @ 20 mls/hr IV . Q24H [facility] Rx#:[id number] Oral 320 Output: Urine 1500 2300 Other: Voiding Method Indwelling Catheter Indwelling Catheter Indwelling Catheter - Exam GENERAL: This is a 53-year-old female in no apparent distress at the time of examination. Pleasant and cooperative. She has multiple sclerosis and is debilitated. HEENT: Head is atraumatic, normocephalic. Pupils are equal, round, and reactive to light. Sclerae anicteric. Conjunctivae are clear. Mucus membranes of the mouth are moist. Neck is supple. RESPIRATORY: Clear to ausculation. No wheezes, rales, or rhonchi. No use of accessory muscles. Patient maintaining oxygen saturation greater than 92%. No chest wall tenderness is noted on palpation or with deep breathing. CARDIOVASCULAR: Regular rate and rhythm. S1 and S2 noted. No systolic or diastolic murmur auscultated. No JVD noted. No S3 or S4 noted. GASTROINTESTINAL: No distention noted. Abdomen soft and round. Normal active bowel sounds auscultated x 4 quadrants. No pain or tenderness noted upon palpation. Suprapubic catheter site clean and intact. INTEGUMENTARY: Left upper arm dressing clean dry and intact. No cyanosis. No jaundice. No rashes noted. EXTREMITIES: Left-sided weakness. 2+ peripheral pulses. No evidence of peripheral edema. No calf tenderness noted. Wound site is clean dry and so knows periwound erythema to this time. There is good granulation tissue evident in the wound. See nursing notes for wound size NEUROLOGIC: Cranial nerves II-XII intact. PSYCHIATRIC: Awake, alert, and oriented X 3. Appropriate affect. Intact judgement and insight. - Labs CBC & Chem 7: 04/15/18 11:06 04/15/18 11:06 Labs: Abnormal Lab Results - Last 24 Hours (Table) 04/15/18 04/15/18 Range/Units 11:06 11:06 RBC 3.48 L (3.80-5.40) m/uL Hgb 8.9 L (11.4-16.0) gm/dL Hct 29.8 L (34.0-46.0) % MCHC 30.0 L (31.0-37.0) g/dL RDW 16.5 H (11.5-15.5) % Lymphocytes # 0.6 L (1.0-4.8) k/uL Chloride 110 H (98-107) mmol/L BUN 4 L (7-17) mg/dL Creatinine 0.50 L (0.52-1.04) mg/dL C-Reactive Protein 52.9 H (<10.0) mg/L Assessment and Plan (1) Humerus head fracture Current Visit: Yes Status: Acute Priority: Medium Code(s): S42.293A - OTH DISP FX OF UPPER END OF UNSP HUMERUS, INIT FOR CLOS FX SNOMED Code(s): 577210530 (2) Cellulitis of left upper extremity Current Visit: Yes Status: Acute Code(s): L03.114 - CELLULITIS OF LEFT UPPER LIMB SNOMED Code(s): 051894545 (3) Failure of outpatient treatment Current Visit: Yes Status: Acute Code(s): Z78.9 - OTHER SPECIFIED HEALTH STATUS SNOMED Code(s): 019488087 (4) CAD (coronary artery disease) Current Visit: No Status: Acute Code(s): I25.10 - ATHSCL HEART DISEASE OF [place] CORONARY ARTERY W/O ANG PCTRS SNOMED Code(s): 48300976 (5) Generalized seizure Current Visit: No Status: Acute Code(s): R56.9 - UNSPECIFIED CONVULSIONS SNOMED Code(s): 250291646 (6) History of immunosuppressive therapy Current Visit: No Status: Acute Code(s): Z92.25 - PERSONAL HISTORY OF IMMUNOSUPRESSION THERAPY SNOMED Code(s): 811433281 (7) Hemiplegia Current Visit: No Status: Chronic Code(s): G81.90 - HEMIPLEGIA, UNSPECIFIED AFFECTING UNSPECIFIED SIDE SNOMED Code(s): 26875468 (8) Insomnia Current Visit: No Status: Chronic Priority: High Code(s): G47.00 - INSOMNIA, UNSPECIFIED SNOMED Code(s): 466100717 (9) Multiple sclerosis Current Visit: No Status: Chronic Code(s): G35 - MULTIPLE SCLEROSIS SNOMED Code(s): 32759089 Plan: PLAN: Infectious disease on consult. Wound cultures show staph aureus. Multiple susceptibilities noted. Blood culture and anaerobic cultures are negative. Patient is now on Kefzol. Vascular necrosis versus osteomyelitis will be settled with a bone biopsy of fourth and will perform. If they will not, we'll plan on fluid aspiration by radiology and PICC line placement for IV antibiotics. General surgery is following after her I&D of the left arm abscess. We will wait on recommendations from orthopedic surgery. Monitor labs GI prophylaxis: Protonix 40 mg PO Daily DVT prophylaxis Lovenox 40 mg subcu daily Monitor vital signs and address as appropriate Discharge planning: Patient to return to [facility] once controversy over left shoulder is resolved. She will be reevaluated in the next 24 hours.
[2018-04-15] MEDS: PROPYLENE GLYCOL BOTH EYES SCH ×2 (13:43→23:31)
[2018-04-15] MEDS: PEG BOTH EYES SCH ×2 (13:43→23:31)
[2018-04-15] MEDS: SODIUM CHLORIDE 0.9% 1,000 ML IV SCH (13:43)
--- NOTE | 2018-04-15 13:45 | PN ---
PROGRESS NOTE DATE OF SERVICE: 04/15/2018 REASON FOR FOLLOWUP: 1. Left medial arm abscess with abscess with MSSA. 2. Patient with abnormal left humeral head with question of osteomyelitis or necrosis or fracture. INTERVAL HISTORY: The patient is currently afebrile. She seemed to be slightly upset as she wants to go back to her [employer]. The patient denies having any chest pain or shortness of breath or cough. No abdominal pain or any worsening pain to the left arm area especially the shoulder and tolerating her wound VAC. PHYSICAL EXAMINATION: On examination, blood pressure 116/66 with pulse of 71, temperature 97. She is 92% on room air. General description is a middle-aged female lying in bed in no distress. RESPIRATORY SYSTEM: Unlabored breathing, clear to auscultation anteriorly. HEART: S1, S2. Regular rate and rhythm. ABDOMEN: Soft, no tenderness. Left medial arm wound looks clean after removal of the wound VAC. Left shoulder with currently no swelling, no redness or point tenderness. LABS: Hemoglobin 8.9, white count 5.0. CRP is 52.9. Sed rate is pending. DIAGNOSTIC IMPRESSION AND PLAN: 1. Patient with left upper arm abscess, status post drainage, culture with MSSA, currently on cefazolin. 2. The patient with abnormal left humeral head with a question of osteomyelitis versus the avascular necrosis or fracture. We waiting for the orthopedics to call us back if the patient will benefit from exploration of that area and a biopsy to come up with more definitive diagnosis. Plan of care was discussed in detail with the patient's primary care physician, Dr. Bowers, on the floor. Continue supportive care. MMODL / IJN: [id number] /
[2018-04-15 14:13] LABS: Erythrocyte Sedimentation Rate 83 mm/hr (0-20)
[2018-04-15] MEDS: MULTIVITAMINS, THERA 1 EACH TAB PO SCH (16:15)
[2018-04-15] MEDS: PROPRANOLOL LA 80 MG CAP.SA.24H PO SCH (21:02)
[2018-04-15] MEDS: TOPIRAMATE 100 MG TAB PO SCH (21:02)
[2018-04-15] MEDS: traZODone HCL 50 MG TAB PO SCH (21:02)
[2018-04-15] MEDS: MELATONIN 5 MG TABLET PO SCH (21:03)
[2018-04-15] MEDS: SENNOSIDES 8.6 MG TAB PO SCH (21:04)
[2018-04-15] MEDS: TEMAZEPAM 15 MG CAP PO PRN (21:23)
[2018-04-15] MEDS: ZOLPIDEM 10 MG TAB PO PRN (21:23)
[2018-04-16] MEDS: LEVOTHYROXINE 100 MCG TAB PO SCH (06:42)
[2018-04-16] MEDS: oxyCODONE-APAP 10-325MG 1 EACH TAB PO PRN ×3 (06:46→22:10)
[2018-04-16 08:34] LABS: Anisocytosis Slight; Basophils % (A) 0 %; Eosinophils # (A) 0.1 k/uL (0-0.7); Eosinophils % (A) 3 %; HCT 28.5 % (34.0-46.0); HGB 8.4 gm/dL (11.4-16.0); Hypochromasia Marked; Lymphocytes # (A) 0.6 k/uL (1.0-4.8); Lymphocytes % (A) 12 %; MCH 25.5 pg (25.0-35.0); MCHC 29.7 g/dL (31.0-37.0); MCV 86.1 fL (80.0-100.0); Mean Platelet Volume 6.8; Monocytes # (A) 0.2 k/uL (0-1.0); Monocytes % (A) 5 %; Neutrophils # (A) 3.9 k/uL (1.3-7.7); Neutrophils % (A) 79 %; Platelet Count 366 k/uL (150-450); RBC 3.31 m/uL (3.80-5.40); RDW 16.7 % (11.5-15.5); WBC 4.9 k/uL (3.8-10.6)
[2018-04-16 08:56] LABS: Anion Gap 8 mmol/L; Blood Urea Nitrogen 6 mg/dL (7-17); Calcium 8.1 mg/dL (8.4-10.2); Carbon Dioxide 23 mmol/L (22-30); Chloride 111 mmol/L (98-107); Glucose 81 mg/dL (74-99); Potassium 3.5 mmol/L (3.5-5.1); Sodium 142 mmol/L (137-145)
--- NOTE | 2018-04-16 09:36 | P.PN ---
Progress Note - Text Patient will undergo PICC line placement and left shoulder aspiration. She will be discharged back to [facility] once antibiotic orders were received from Dr. Grey
[2018-04-16] MEDS: LACOSAMIDE 150 MG TABLET PO SCH ×2 (10:09→22:08)
[2018-04-16] MEDS: Acetaminophen-Codeine 300-30mg TAB PO PRN ×2 (10:09→23:57)
[2018-04-16] MEDS: ceFAZolin IN SWFI 2 GM/20 ML SYRINGE IVP SCH ×3 (10:10→23:57)
[2018-04-16] MEDS: DOCUSATE 100 MG CAP PO SCH (10:10)
[2018-04-16] MEDS: tiZANidine 4 MG TAB PO SCH ×2 (10:10→22:09)
[2018-04-16] MEDS: OXYBUTYNIN 10 MG TAB.ER.24 PO SCH ×3 (10:10→22:10)
[2018-04-16] MEDS: PANTOPRAZOLE 40 MG TABLET PO SCH (10:10)
[2018-04-16] MEDS: MAGNESIUM OXIDE 400 MG TAB PO SCH ×2 (10:10→22:08)
[2018-04-16] MEDS: ASPIRIN 325 MG TAB PO SCH (10:10)
[2018-04-16] MEDS: PROPYLENE GLYCOL BOTH EYES SCH ×2 (10:21→22:14)
[2018-04-16] MEDS: PEG BOTH EYES SCH ×2 (10:21→22:14)
[2018-04-16] MEDS ORDERED: LIDOCAINE 1% INJ 10MG/ML (20 ML MDV) SQ ONE (10:42)
--- NOTE | 2018-04-16 11:31 | IR ---
PICC LINE PLACEMENT: HISTORY: Infection requiring long-term antibiotic therapy PROCEDURE: Ultrasound and fluoroscopic guidance of PICC line placement. COMPLICATIONS: None ANESTHESIA: 1. 1% Lidocaine locally. FINDINGS/TECHNIQUE: The procedure was explained to the patient. The risks, complications, benefits and alternatives were discussed and any questions were answered. Informed consent was obtained. The patient was placed supine on the fluoroscopic table and prepped and draped in the usual sterile fas ion. Utilizing a 21 gauge needle and sonographic and fluoroscopic guidance, access in the vein was achieved and there is placement of a 0.018 guidewire. The vein is patent. A 4-F sheath was placed o sherman the guidewire. The guidewire and dilator were removed and a 4-F. PICC line was placed through th e sheath with the tip at the level of the SVC. The sheath was removed, the catheter was flushed and sutured into position. The patient was stable throughout the procedure and remained stable upon disc harge from the Department of Radiology. The vein puncture was patent under ultrasound. A vo scale image was obtained to document patency of the vein punctured. All elements of the maximal barrier technique were utilized. FLUOROSCOPY TIME: 0.2 minutes of fluoroscopy and one image submitted. IMPRESSION: Successful PICC line placement under ultrasound and fluoroscopic guidance.
--- NOTE | 2018-04-16 11:57 | CDI ---
Last Revision, June 2017 Documentation Clarification Form Date: 04/14/2018 8:53:00 AM From: Selena MetzSANTOS, CCDS Admit Date: 04/07/2018 7:00:00 PM Patient Name: Enid Oates Visit Number: [id number] Discharge Date: ATTENTION: The Clinical Documentation Specialists (CDI) and [facility] Coding Staff appreciate your assistance in clarifying documentation. Please respond to the clarification below the line at the bottom and electronically sign. The CDI & [facility] Coding staff will review the response and follow-up if needed. Please note: Queries are made part of the Legal Health Record. If you have any questions, please contact the author of this message via ITS. Yossi Ji, DO: Osteomyelitis has been documented in the 04/13 orthopedic progress note as: "Possible osteomyelitis left upper extremity, proximal humerus." History/Risk Factors: MS, CVA w/residual left sided weakness, Seizure disorder, Cervical & Breast Cancer. Clinical Indicators: Presented with left upper extremity cellulitis & abscess that has been drained, cultures positive for MSSA, has wound VAC. Thought to have possible fracture of left humeral head, ruled out. Labs: Phosphorus 4.7, TCK 25, Total protein 8.3 X-Ray Results: 04/12 Left shoulder XR: Nonvisualization of the patient's known fracture of the humeral head. Treatment: Patient is unable to have an MRI due to having neurostimulator. IV Rocephin, IV fluid 100, IV Vancomycin, IV Ms. In your professional opinion, please specify the acuity of the patient's possible osteomyelitis: Acute Chronic Acute on Chronic Unable to Determine This appears to be a new, acute episode of osteomyelitis MTDD
--- NOTE | 2018-04-16 16:28 | PN ---
PROGRESS NOTE DATE OF SERVICE: 04/16/2018 REASON FOR FOLLOWUP: 1. Left medial arm abscess MSSA. 2. Possible left humeral osteomyelitis. INTERVAL HISTORY: The patient is currently afebrile. She did get a PICC line. The patient denies having any chest pain or shortness of breath or cough. Pain to the left medial arm is currently controlled and the patient is insisting on going back to [employer]. PHYSICAL EXAMINATION: Blood pressure 155/63 with a pulse of 63, temperature 97. She is 100% on room air. General description is a middle aged female lying in bed in no distress. RESPIRATORY SYSTEM: Unlabored breathing. Clear to auscultation anteriorly. HEART: S1, S2. Regular rate and rhythm. ABDOMEN: Soft. No tenderness. Left medial arm wound is currently packed with Aquacel Silver. Left shoulder area with no swelling, no redness. EXTREMITIES: No edema of the feet. LABS: Hemoglobin 8.4, white count 4.9, BUN of 6, creatinine 0.54. DIAGNOSTIC IMPRESSION AND PLAN: 1. Patient with left medial arm area abscess that has been drained, culture positive for methicillin-susceptible Staphylococcus aeruginosa. Patient currently on Cefazolin. 2. Patient who does have an abnormal CT with abnormality of the humeral head. Bone scan has been positive; however, we still do not have a clear etiology of this abnormality; if it is osteomyelitis, the infective pathogen unknown versus avascular necrosis or a fracture. I did discuss the case in detail with the attending physician yesterday and with Orthopedics today. The PA will try to get hold of Orthopedics, as I am recommending possible debridement of that area and exploration which should be sent for biopsy to clarify her underlying condition as well as culture to determine the infective pathogen. Will keep the patient on cefazolin at this point. Continue supportive care. MMODL / IJN: [id number] /
[2018-04-16] MEDS: MULTIVITAMINS, THERA 1 EACH TAB PO SCH (17:03)
[2018-04-16] MEDS: LIDOCAINE 5% PATCH TOPICAL SCH ×2 (17:03→22:08)
[2018-04-16] MEDS: SODIUM CHLORIDE 0.9% 1,000 ML IV SCH (17:04)
[2018-04-16] MEDS: RIVAROXABAN 20 MG TAB PO SCH (19:40)
[2018-04-16] MEDS: MELATONIN 5 MG TABLET PO SCH (22:08)
[2018-04-16] MEDS: TOPIRAMATE 100 MG TAB PO SCH (22:09)
[2018-04-16] MEDS: SENNOSIDES 8.6 MG TAB PO SCH (22:09)
[2018-04-16] MEDS: PROPRANOLOL LA 80 MG CAP.SA.24H PO SCH (22:09)
[2018-04-16] MEDS: TEMAZEPAM 15 MG CAP PO PRN (22:10)
[2018-04-16] MEDS: ZOLPIDEM 10 MG TAB PO PRN (22:10)
[2018-04-16] MEDS: traZODone HCL 50 MG TAB PO SCH (22:10)
[2018-04-17] MEDS: LEVOTHYROXINE 100 MCG TAB PO SCH (06:25)
[2018-04-17] MEDS: oxyCODONE-APAP 10-325MG 1 EACH TAB PO PRN ×2 (06:25→11:13)
[2018-04-17 06:33] VITALS: TEMP 98.1
[2018-04-17] MEDS: Acetaminophen-Codeine 300-30mg TAB PO PRN (08:32)
[2018-04-17] MEDS: OXYBUTYNIN 10 MG TAB.ER.24 PO SCH ×2 (08:33→15:37)
[2018-04-17] MEDS: LIDOCAINE 5% PATCH TOPICAL SCH (08:33)
[2018-04-17] MEDS: DOCUSATE 100 MG CAP PO SCH (08:34)
[2018-04-17] MEDS: PANTOPRAZOLE 40 MG TABLET PO SCH (08:34)
[2018-04-17] MEDS: tiZANidine 4 MG TAB PO SCH (08:35)
[2018-04-17] MEDS: MAGNESIUM OXIDE 400 MG TAB PO SCH (08:35)
[2018-04-17] MEDS: ASPIRIN 325 MG TAB PO SCH (08:35)
[2018-04-17] MEDS: PEG BOTH EYES SCH (08:35)
[2018-04-17] MEDS: PROPYLENE GLYCOL BOTH EYES SCH (08:35)
[2018-04-17] MEDS: SODIUM CHLORIDE 0.9% 1,000 ML IV SCH (08:36)
[2018-04-17] MEDS: ceFAZolin IN SWFI 2 GM/20 ML SYRINGE IVP SCH ×2 (09:00→15:37)
[2018-04-17] MEDS: LACOSAMIDE 150 MG TABLET PO SCH (09:01)
[2018-04-17] MEDS: MULTIVITAMINS, THERA 1 EACH TAB PO SCH (11:13)
[2018-04-17 13:11] VITALS: BP 104/65; PULSE 70; RESP 16
--- NOTE | 2018-04-17 13:32 | US ---
EXAMINATION TYPE: US asp abscess/hemat/cyst DATE OF EXAM: 04/17/2018 HISTORY: Lytic left humerus lesion. FINDINGS: Maximal barrier technique was utilized. The skin overlying a suitable path to the patient's lytic lesion in the proximal left humerus was localized with ultrasound and the overlying skin prepp ed and draped. Ultrasound was utilized with sterile technique. Lidocaine was used for local anesthe alex. A 23-gauge needle was advanced under direct ultrasound guidance and aspirated specimen obtained of the lytic lesion. Only a drop of serous sanguinous fluid obtained. Specimen submitted in culture media to microbiology. Following the procedure, hemostasis achieved and the patient is discharged in stable condition without complication. IMPRESSION:STATUS POST ULTRASOUND GUIDED ASPIRATION BIOPSY OF proximal humerus lytic MASS, microbiolo gy IS PENDING. THIS PROCEDURE IS PERFORMED BY THE UNDERSIGNED.
--- NOTE | 2018-04-17 14:47 | PN ---
PROGRESS NOTE DATE OF SERVICE: 04/17/2018 REASON FOR FOLLOWUP: 1. Left biceps MSSA abscess. 2. Possible left humeral osteomyelitis. INTERVAL HISTORY: The patient is currently afebrile, the patient is status post aspirate of the left humeral head, no significant purulence per the radiologist. Pain is currently controlled. Denies having chest pain, shortness of breath or cough. No abdominal pain, no diarrhea. PHYSICAL EXAMINATION: Blood pressure 104/55, pulse 72, temperature 98.1, she is 97% on room air. General description is a middle-aged female, lying in bed in no distress. RESPIRATORY SYSTEM: Unlabored breath, clear to auscultation anteriorly. HEART: S1, S2, regular rate and rhythm. ABDOMEN: Soft, no tenderness. EXTREMITIES: No edema of the feet. LABS: No new labs have been obtained today. CRP is 52.9 with a sed rate of 83. DIAGNOSTIC IMPRESSION: 1. Patient with left biceps muscle abscess, status post drainage culture positive for methicillin-sensitive Staphylococcus aureus, currently on cefazolin. 2. Patient with abnormal left humeral head with question of osteo versus avascular necrosis. Ortho was unable to do a surgical debridement of deep culture or biopsy. She is status post ultrasound-guided has been followed and close outpatient followup plan of care was discussed with the attending physician. Continue supportive care. MMODL / IJN: [id number] /
== END 2018-04-17 16:11 | DRG 501 ==
LOC: EC 16:51 → 4MS4W 19:00
PROVIDERS: ADMIT Family Medicine; ATTEND Family Medicine
PROC: 02HV33Z Insertion of Infusion Device into Superior Vena Cava, Percutaneous Approach (ICD-10-PCS; principal; 2018-04-07)
PROC: 0J9F0ZX Drainage of Left Upper Arm Subcutaneous Tissue and Fascia, Open Approach, Diagnostic (ICD-10-PCS; 2018-04-09)
PROC: 0J9F0ZZ Drainage of Left Upper Arm Subcutaneous Tissue and Fascia, Open Approach (ICD-10-PCS; 2018-04-09)
DX: M86.122 Other acute osteomyelitis, left humerus (principal); S42.293A Other displaced fracture of upper end of unspecified humerus, initial encounter for closed fracture; D62 Acute posthemorrhagic anemia; I69.354 Hemiplegia and hemiparesis following cerebral infarction affecting left non-dominant side; L02.414 Cutaneous abscess of left upper limb; L03.114 Cellulitis of left upper limb; M60.022 Infective myositis, left upper arm; M87.9 Osteonecrosis, unspecified; D63.8 Anemia in other chronic diseases classified elsewhere; E03.9 Hypothyroidism, unspecified; E78.5 Hyperlipidemia, unspecified; E87.5 Hyperkalemia; F40.240 Claustrophobia; G35 Multiple sclerosis; G40.909 Epilepsy, unspecified, not intractable, without status epilepticus; G43.909 Migraine, unspecified, not intractable, without status migrainosus; G47.00 Insomnia, unspecified; I25.10 Atherosclerotic heart disease of native coronary artery without angina pectoris; I25.2 Old myocardial infarction; I73.9 Peripheral vascular disease, unspecified; J44.9 Chronic obstructive pulmonary disease, unspecified; Z74.01 Bed confinement status; Z79.01 Long term (current) use of anticoagulants; Z79.82 Long term (current) use of aspirin; Z82.49 Family history of ischemic heart disease and other diseases of the circulatory system; Z83.3 Family history of diabetes mellitus; Z85.3 Personal history of malignant neoplasm of breast; Z85.41 Personal history of malignant neoplasm of cervix uteri; Z86.14 Personal history of Methicillin resistant Staphylococcus aureus infection; Z86.718 Personal history of other venous thrombosis and embolism; Z87.891 Personal history of nicotine dependence; Z90.710 Acquired absence of both cervix and uterus; Z99.3 Dependence on wheelchair; Z92.21 Personal history of antineoplastic chemotherapy; Z79.890 Hormone replacement therapy; Z79.899 Other long term (current) drug therapy; Z88.1 Allergy status to other antibiotic agents; Z88.2 Allergy status to sulfonamides; Z88.8 Allergy status to other drugs, medicaments and biological substances; Z90.49 Acquired absence of other specified parts of digestive tract
CPT/HCPCS: 10160; 36415; 36569; 76937; 77001; 78315; 80048; 80053; 80202; 82550; 82553; 83605; 83735; 84100; 84484; 85025; 85610; 85652; 85730; 86140; 87040; 87070; 87075; 87077; 87186; 87205; 96361; 96365; 96375; 99284

== ENCOUNTER 2018-08-14 11:53 | Emergency (ER) | payer MEDICARE, OTHER ==
--- NOTE | 2018-08-14 12:23 | ED ---
General Adult HPI - General Chief complaint: Altered Mental Status Stated complaint: Altered Time Seen by Provider: 08/14/18 11:55 Source: patient Mode of arrival: EMS Limitations: no limitations - Related Data Home Medications Medication Instructions Recorded Confirmed Propranolol HCl [Inderal LA] 160 mg PO HS@199903/07/14 08/14/18 Topiramate [Topamax] 400 mg PO HS@199903/07/14 08/14/18 Levothyroxine Sodium [Synthroid] 100 mcg PO DAILY@79907/02/16 08/14/18 Potassium Chloride ER [K-Dur 10] 10 meq PO DAILY@79906/13/17 08/14/18 Omeprazole [PriLOSEC] 40 mg PO DAILY@79907/07/17 08/14/18 tiZANidine HCL [Zanaflex] 4 mg PO BID 07/07/17 08/14/18 Rivaroxaban [Xarelto] 20 mg PO DAILY@0802/03/18 08/14/18 Lidocaine 5% Patch [Lidoderm 5% 1 patch TOPICAL DAILY 04/02/18 08/14/18 Patch] Magnesium Oxide [Mag-Ox] 125 mg PO Q12H 04/02/18 08/14/18 Oxybutynin ER [Ditropan Xl] 10 mg PO TID@0800,1200,1800 04/02/18 08/14/18 Lactulose 20 gm PO DAILY PRN 04/07/18 08/14/18 Acetaminophen [Tylenol] 650 mg PO Q6H PRN 08/14/18 08/14/18 Acetaminophen-Codeine 300-30mg 1 tab PO BID PRN 08/14/18 08/14/18 [Tylenol w/codeine #3] Aspirin 325 mg PO DAILY@0908/14/18 08/14/18 Benzocaine/Menthol Lozeng [Cepacol 1 tab MUCOUS MEM Q6HR PRN 08/14/18 08/14/18 lozenge] Doxycycline Hyclate 100 mg PO BID@08,199908/14/18 08/14/18 Propylene Glycol/Peg 400 [Systane 1 drop BOTH EYES BID@799,199908/14/18 Ultra 0.4-0.3% Eye Drp] clonazePAM [KlonoPIN] 2 mg PO HS@199908/14/18 08/14/18 Previous Rx's Medication Instructions Recorded Lacosamide [Vimpat] 150 mg PO BID #6 tablet 04/13/18 fentaNYL 12MCG/HR PATCH [Duragesic 1 patch TRANSDERM Q72H #1 patch 04/13/18 12MCG/HR] fentaNYL 25MCG/HR PATCH [Duragesic 1 patch TRANSDERM Q72H #1 patch 04/13/18 25MCG/HR] Allergies Allergy/AdvReac Type Severity Reaction Status Date / Time guaifenesin [From Entex LA] Allergy Anaphylaxis Verified 08/14/18 12:32 phenylephrine HCl Allergy Anaphylaxis Verified 08/14/18 12:32 [From Entex LA] phenylpropanolamine HCl Allergy Anaphylaxis Verified 08/14/18 12:32 [From Entex LA] Sulfa (Sulfonamide Allergy Anaphylaxis Verified 08/14/18 12:32 Antibiotics) tuberculin, purified protein Allergy Anaphylaxis Verified 08/14/18 12:32 deriva [Tuberculin,Purif.Prot.Deriv.] pseudoephedrine HCl AdvReac Swelling Verified 08/14/18 12:32 [From Mucinex D] Review of Systems ROS Statement: Those systems with pertinent positive or pertinent negative responses have been documented in the HPI. ROS Other: All systems not noted in ROS Statement are negative. Past Medical History Past Medical History: Cancer, COPD, CVA/TIA, Deep Vein Thrombosis (DVT), Hyperlipidemia, Myocardial Infarction (GA), Neurologic Disorder, Seizure Disorder, Thyroid Disorder, Vascular Disorder Additional Past Medical History / Comment(s): Multiple Sclerosis - HAS SUPRAPUBIC CATH-pt stated was changed last 03-27-18. pt suffered stroke in september 2014 (which affected non dominant lt side) pt stated now she is able to use lt arm,hand.lt leg paralysis,able to wiggle toes a bit, wears lt leg brace. pt stated she is able to stand and walk w/ walker short distance by leading w/rt leg and drags lt foot-but mostly uses power chair .LAST SEIZURE - 2017 DVT lt leg approx. (December 2017),. PVD. Migraines. BORN W/ HEART MALFORMATION DEFECT,cervical cancer 1997-had surg & chemo,. RT BREAST CA - lumpectomy only [id number]. rt leg cellulitis-since resolved Last Myocardial Infarction Date:: 2004 History of Any Multi-Drug Resistant Organisms: MRSA Date of last positivie culture/infection: 06/14/15 MDRO Source:: sputum Past Surgical History: Back Surgery, Cholecystectomy, Heart Catheterization, Hysterectomy, Tonsillectomy Additional Past Surgical History / Comment(s): sinus surgery FOR DEVIATED SEPTUM ; Rt breast lumpectomy; Rt knee surgery x 4 ARTHROSCOPIES AND ACL RECONSTRUCTION; LAPAROSCOPY, EXC ADHESIONS. Suprapubic Cath.07-28-17 egd w/ stoamch bx-neg, lexiscan stress test. back surgery .lt subclavian port a cath implanted on 01-13-18 pt stated "it's never been accessed". Past Anesthesia/Blood Transfusion Reactions: No Reported Reaction Additional Past Anesthesia/Blood Transfusion Reaction / Comment(s): CLAUSTROPHOBIA Past Psychological History: No Psychological Hx Reported Smoking Status: Former smoker Past Alcohol Use History: None Reported Past Drug Use History: None Reported - Past Family History Father Family Medical History: Diabetes Mellitus, Myocardial Infarction (GA), Osteoarthritis (OA) Additional Family Medical History / Comment(s): OPEN HEART SX Mother Family Medical History: Myocardial Infarction (GA) Additional Family Medical History / Comment(s): LAST YEAR IN HER SLEEP(GA) General Exam Limitations: no limitations Course Vital Signs 08/14/18 08/14/18 08/14/18 11:55 12:00 13:00 Temperature 99.1 F Pulse Rate 78 76 68 Respiratory 18 11 L 11 L Rate Blood Pressure 111/57 111/57 113/88 O2 Sat by Pulse 96 97 96 Oximetry Medical Decision Making - Medical Decision Making Dictation was produced using [employer] dictation software. please excuse any grammatical, word or spelling errors. Chief Complaint: 53-year-old female sent in from that he lives for altered mental status. History of Present Illness: 53-year-old female past medical history of CVA and multiple sclerosis. Patient has baseline left lower extremity paraplegia. Patient is normally a and O 4 per EMS and received report from any lunch. They state that she was sent here for acute onset confusion. They checked her urine twice is found to be within normal limits. Patient also has a chronic wound of her left upper extremity since March. They sent her in because they felt as though maybe she has an unidentified process causing her mental status changes. Patient states she feels tired. She reports she has a mild headache. Patient has a past medical history multiple sclerosis. Her neurologist is Dr. Azul. Patient has no other complaints at this time. The ROS documented in this emergency department record has been reviewed and confirmed by me. Those systems with pertinent positive or negative responses have been documented in the HPI. All other systems are other negative and/or noncontributory. PHYSICAL EXAM: General Impression: Alert and oriented x2/4, not in acute distress HEENT: Normocephalic atraumatic, extra-ocular movements intact, pupils equal and reactive to light bilaterally, mucous membranes moist. Cardiovascular: Heart regular rate and rhythm, S1&S2 audible, no murmurs, rubs or gallops Chest: Lungs clear to auscultation bilaterally, no rhonchi, no wheeze, no rales Abdomen: Bowel sounds present, abdomen soft, non-tender, non-distended, no organomegaly Musculoskeletal: Pulses present and equal in all extremities, no peripheral edema Motor: Left lower extremity paraplegia Neurological: CN II-XII grossly intact Skin: Left shoulder wound which surrounding skin is not erythematous. There was packing that was removed. No purulent fluid over the was for breast bloody tissue. Psych: Normal affect and mood ED course: 52-year-old female presents with acute onset altered mental status. She was sent in from medical [place]. She is allegedly at medical [place] for neuro issues. Signs upon arrival are within acceptable limits.Laboratory evaluation obtained. CBC unremarkable. Metabolic panel is unremarkable. Cardiac enzymes negative. Urinalysis shows 11 white blood cells. Hisclaims. No notable bacteria. Patient's positive urine for opiates. Coag panel unremarkable. Computed tomography scan of the chest x-ray unremarkable. Given history of acute delirium and history of multiple sclerosis and CVA and believe patient would benefit from care for her neurologist. Her neurologist is Dr. Azul who at this point in time does not round at our hospital. We'll transfer patient to [facility] where her neurologist currently operates. EKG interpretation: Ventricular rate 72, normal sinus rhythm, AR interval 146, QS 86, QTC 494. No AR prolongation, no QTC prolongation, no ST or T-wave changes noted. Compared to EKG from 07/24/2018 Overall, this EKG is unremarkable - Lab Data Result diagrams: 08/14/18 12:58 08/14/18 12:58 Lab Results 08/14/18 08/14/18 08/14/18 Range/Units 12:58 12:58 12:58 WBC 4.6 (3.8-10.6) k/uL RBC 4.58 (3.80-5.40) m/uL Hgb 12.8 (11.4-16.0) gm/dL Hct 42.0 (34.0-46.0) % MCV 91.6 (80.0-100.0) fL MCH 27.9 (25.0-35.0) pg MCHC 30.4 L (31.0-37.0) g/dL RDW 16.8 H (11.5-15.5) % Plt Count 276 (150-450) k/uL Neutrophils % 73 % Lymphocytes % 14 % Monocytes % 6 % Eosinophils % 3 % Basophils % 1 % Neutrophils # 3.3 (1.3-7.7) k/uL Lymphocytes # 0.7 L (1.0-4.8) k/uL Monocytes # 0.3 (0-1.0) k/uL Eosinophils # 0.1 (0-0.7) k/uL Basophils # 0.0 (0-0.2) k/uL Hypochromasia Slight Anisocytosis Slight PT (9.0-12.0) sec INR (<1.2) APTT (22.0-30.0) sec Sodium 143 (137-145) mmol/L Potassium 4.4 (3.5-5.1) mmol/L Chloride 111 H (98-107) mmol/L Carbon Dioxide 24 (22-30) mmol/L Anion Gap 8 mmol/L BUN 13 (7-17) mg/dL Creatinine 0.68 (0.52-1.04) mg/dL Est GFR (CKD-EPI)AfAm >90 (>60 ml/min/1.73 sqM) Est GFR (CKD-EPI)NonAf >90 (>60 ml/min/1.73 sqM) Glucose 94 (74-99) mg/dL Calcium 9.2 (8.4-10.2) mg/dL Total Bilirubin 0.3 (0.2-1.3) mg/dL AST 20 (14-36) U/L ALT 16 (9-52) U/L Alkaline Phosphatase 118 (38-126) U/L Total Creatine Kinase 31 (30-135) U/L CK-MB (CK-2) <0.2 (0.0-2.4) ng/mL CK-MB (CK-2) Rel Index Troponin I <0.012 (0.000-0.034) ng/mL Total Protein 7.6 (6.3-8.2) g/dL Albumin 3.8 (3.5-5.0) g/dL Urine Color Urine Appearance (Clear) Urine pH (5.0-8.0) Ur Specific [place] (1.001-1.035) Urine Protein (Negative) Urine Glucose (UA) (Negative) Urine Ketones (Negative) Urine Blood (Negative) Urine Nitrite (Negative) Urine Bilirubin (Negative) Urine Urobilinogen (<2.0) mg/dL Ur Leukocyte Esterase (Negative) Urine RBC (0-5) /hpf Urine WBC (0-5) /hpf Hyaline Casts (0-2) /lpf Urine Mucus (None) /hpf Urine Opiates Screen (NotDetected) Ur Oxycodone Screen (NotDetected) Urine Methadone Screen (NotDetected) Ur Propoxyphene Screen (NotDetected) Ur Barbiturates Screen (NotDetected) U Tricyclic Antidepress (NotDetected) Ur Phencyclidine Scrn (NotDetected) Ur Amphetamines Screen (NotDetected) U Methamphetamines Scrn (NotDetected) U Benzodiazepines Scrn (NotDetected) Urine Cocaine Screen (NotDetected) U Marijuana (THC) Screen (NotDetected) 08/14/18 08/14/18 Range/Units 12:58 13:47 WBC (3.8-10.6) k/uL RBC (3.80-5.40) m/uL Hgb (11.4-16.0) gm/dL Hct (34.0-46.0) % MCV (80.0-100.0) fL MCH (25.0-35.0) pg MCHC (31.0-37.0) g/dL RDW (11.5-15.5) % Plt Count (150-450) k/uL Neutrophils % % Lymphocytes % % Monocytes % % Eosinophils % % Basophils % % Neutrophils # (1.3-7.7) k/uL Lymphocytes # (1.0-4.8) k/uL Monocytes # (0-1.0) k/uL Eosinophils # (0-0.7) k/uL Basophils # (0-0.2) k/uL Hypochromasia Anisocytosis PT 11.5 (9.0-12.0) sec INR 1.1 (<1.2) APTT 33.9 H (22.0-30.0) sec Sodium (137-145) mmol/L Potassium (3.5-5.1) mmol/L Chloride (98-107) mmol/L Carbon Dioxide (22-30) mmol/L Anion Gap mmol/L BUN (7-17) mg/dL Creatinine (0.52-1.04) mg/dL Est GFR (CKD-EPI)AfAm (>60 ml/min/1.73 sqM) Est GFR (CKD-EPI)NonAf (>60 ml/min/1.73 sqM) Glucose (74-99) mg/dL Calcium (8.4-10.2) mg/dL Total Bilirubin (0.2-1.3) mg/dL AST (14-36) U/L ALT (9-52) U/L Alkaline Phosphatase (38-126) U/L Total Creatine Kinase (30-135) U/L CK-MB (CK-2) (0.0-2.4) ng/mL CK-MB (CK-2) Rel Index Troponin I (0.000-0.034) ng/mL Total Protein (6.3-8.2) g/dL Albumin (3.5-5.0) g/dL Urine Color Light Yellow Urine Appearance Clear (Clear) Urine pH 5.5 (5.0-8.0) Ur Specific [place] 1.017 (1.001-1.035) Urine Protein Negative (Negative) Urine Glucose (UA) Negative (Negative) Urine Ketones Negative (Negative) Urine Blood Negative (Negative) Urine Nitrite Negative (Negative) Urine Bilirubin Negative (Negative) Urine Urobilinogen <2.0 (<2.0) mg/dL Ur Leukocyte Esterase Small H (Negative) Urine RBC 1 (0-5) /hpf Urine WBC 11 H (0-5) /hpf Hyaline Casts 5 H (0-2) /lpf Urine Mucus Rare H (None) /hpf Urine Opiates Screen Detected H (NotDetected) Ur Oxycodone Screen Not Detected (NotDetected) Urine Methadone Screen Not Detected (NotDetected) Ur Propoxyphene Screen Not Detected (NotDetected) Ur Barbiturates Screen Not Detected (NotDetected) U Tricyclic Antidepress Not Detected (NotDetected) Ur Phencyclidine Scrn Not Detected (NotDetected) Ur Amphetamines Screen Not Detected (NotDetected) U Methamphetamines Scrn Not Detected (NotDetected) U Benzodiazepines Scrn Not Detected (NotDetected) Urine Cocaine Screen Not Detected (NotDetected) U Marijuana (THC) Screen Not Detected (NotDetected) Disposition Clinical Impression: Altered mental status Disposition: OTHER INSTITUTION NOT DEFINED Condition: Fair Referrals: Nonstaff,Physician [Primary Care Provider] - 1-2 days Time of Disposition: 15:19 - Out of Hospital Transfer - Req. Specs Out of Hospital Transfer - Requested Specifics: Other Emergency Center ([facility] for neurology)
[2018-08-14 13:19] LABS: Anisocytosis Slight; Basophils % (A) 1 %; Eosinophils # (A) 0.1 k/uL (0-0.7); Eosinophils % (A) 3 %; HGB 12.8 gm/dL (11.4-16.0); Hypochromasia Slight; Lymphocytes # (A) 0.7 k/uL (1.0-4.8); Lymphocytes % (A) 14 %; MCH 27.9 pg (25.0-35.0); MCHC 30.4 g/dL (31.0-37.0); MCV 91.6 fL (80.0-100.0); Mean Platelet Volume 7.3; Monocytes # (A) 0.3 k/uL (0-1.0); Monocytes % (A) 6 %; Neutrophils # (A) 3.3 k/uL (1.3-7.7); Neutrophils % (A) 73 %; Platelet Count 276 k/uL (150-450); RBC 4.58 m/uL (3.80-5.40); RDW 16.8 % (11.5-15.5); WBC 4.6 k/uL (3.8-10.6)
--- NOTE | 2018-08-14 13:30 | CT ---
EXAMINATION TYPE: CT brain wo con DATE OF EXAM: 08/14/2018 HISTORY: headache x 4 days/migraine. History of numbness and CVA. CT DLP: 1048.4 mGycm. Automated Exposure Control for Dose Reduction was Utilized. TECHNIQUE: CT scan of the head is performed without contrast. COMPARISON: CT brain September 20, 2014. MRI brain May 29, 2015 FINDINGS: There is no acute intracranial hemorrhage or midline shift identified. Ventricles and sul ci are within normal limits in size. Rascon-white matter differentiation is fairly well preserved . Whi te matter changes are better seen on MRI versus CT. The globes are intact and the visualized sinuses are clear. IMPRESSION: No acute intracranial hemorrhage or midline shift. No significant change from prior CT.
[2018-08-14 13:32] LABS: INR 1.1 (<1.2); Partial Thromboplastin Time 33.9 sec (22.0-30.0); Prothrombin Time 11.5 sec (9.0-12.0)
[2018-08-14 13:33] LABS: ALT 16 U/L (9-52); AST 20 U/L (14-36); Albumin 3.8 g/dL (3.5-5.0); Alkaline Phosphatase 118 U/L (38-126); Anion Gap 8 mmol/L; Blood Urea Nitrogen 13 mg/dL (7-17); Calcium 9.2 mg/dL (8.4-10.2); Carbon Dioxide 24 mmol/L (22-30); Chloride 111 mmol/L (98-107); Glucose 94 mg/dL (74-99); Potassium 4.4 mmol/L (3.5-5.1); Sodium 143 mmol/L (137-145); Total Bilirubin 0.3 mg/dL (0.2-1.3); Total Protein 7.6 g/dL (6.3-8.2)
[2018-08-14 13:45] LABS: Creatine Kinase 31 U/L (30-135)
[2018-08-14 13:58] LABS: Creatine Kinase MB <0.2 ng/mL (0.0-2.4); Troponin I <0.012 ng/mL (0.000-0.034)
--- NOTE | 2018-08-14 14:25 | XR ---
EXAMINATION TYPE: XR chest 2V DATE OF EXAM: 08/14/2018 COMPARISON: Chest x-ray February 09, 2018 HISTORY: Headache for 4 days with weakness. TECHNIQUE: Frontal and lateral views of the chest are obtained. FINDINGS: There is stable left subclavian Mediport catheter. There is no focal air space opacity, pl eural effusion, or pneumothorax seen. The cardiac silhouette size is stable and upper limits of norm al. Cholecystectomy clips are redemonstrated. Stimulator device mid to lower thoracic spinal canal is redemonstrated. IMPRESSION: No acute cardiopulmonary process. No significant change from prior.
[2018-08-14 14:58] LABS: Appearance,Urine Clear (Clear); Bilirubin,Urine Negative (Negative); Blood,Urine Negative (Negative); Color,Urine Light Yellow; Glucose,Urine (UA) Negative (Negative); Hyaline Casts,Urine 5 /lpf (0-2); Ketones,Urine Negative (Negative); Leukocyte Esterase,Urine Small (Negative); Mucus,Urine Rare /hpf; Nitrite,Urine Negative (Negative); PH, Urine 5.5 (5.0-8.0); Protein,Urine Negative (Negative); RBC,Urine 1 /hpf (0-5); Specific Gravity,Urine 1.017 (1.001-1.035); Urobilinogen,Urine <2.0 mg/dL (<2.0)
[2018-08-14 15:05] LABS: Amphetamine Screen,Urine Not Detected (NotDetected); Barbiturate Screen,Urine Not Detected (NotDetected); Benzodiazepines Screen,Urine Not Detected (NotDetected); Cocaine Screen,Urine Not Detected (NotDetected); Methadone Screen, Urine Not Detected (NotDetected); Opiate Screen,Urine Detected (NotDetected); Oxycodone Screen, Urine Not Detected (NotDetected); Phencyclidine Screen,Urine Not Detected (NotDetected); Tricyclic Antidepressant,Urine Not Detected (NotDetected); Urn Cannabinoid Scrn Not Detected (NotDetected)
[2018-08-14] MEDS ORDERED: ACETAMINOPHEN TAB 500 MG TAB PO STA (15:20)
[2018-08-14 15:30] VITALS: RESP 18
[2018-08-14 16:20] VITALS: BP 96/56; PULSE 70; TEMP 98.1
== END 2018-08-14 16:18 | disposition short-term general hospital (02) ==
LOC: EC 11:53
DX: R41.82 Altered mental status, unspecified (principal); I69.364 Other paralytic syndrome following cerebral infarction affecting left non-dominant side; L98.499 Non-pressure chronic ulcer of skin of other sites with unspecified severity; R82.998 Other abnormal findings in urine; R51 Headache; Q24.9 Congenital malformation of heart, unspecified; G35 Multiple sclerosis; E07.9 Disorder of thyroid, unspecified; G40.909 Epilepsy, unspecified, not intractable, without status epilepticus; I73.9 Peripheral vascular disease, unspecified; Z87.891 Personal history of nicotine dependence; Z88.2 Allergy status to sulfonamides; Z88.7 Allergy status to serum and vaccine; Z88.8 Allergy status to other drugs, medicaments and biological substances; Z79.01 Long term (current) use of anticoagulants; Z79.82 Long term (current) use of aspirin; Z79.890 Hormone replacement therapy; Z79.899 Other long term (current) drug therapy; Z86.14 Personal history of Methicillin resistant Staphylococcus aureus infection; Z96.0 Presence of urogenital implants; Z86.718 Personal history of other venous thrombosis and embolism; Z85.3 Personal history of malignant neoplasm of breast; Z85.41 Personal history of malignant neoplasm of cervix uteri; Z90.710 Acquired absence of both cervix and uterus; Z95.818 Presence of other cardiac implants and grafts; Z92.21 Personal history of antineoplastic chemotherapy; Z86.69 Personal history of other diseases of the nervous system and sense organs; Z98.890 Other specified postprocedural states
CPT/HCPCS: 36415; 80053; 82550; 82553; 84484; 85025; 85610; 85730; 81001; 80306; 87086; 71046; 70450; 99285; 96365; J0696

== ENCOUNTER 2018-11-27 21:31 | Observation (INO) | payer MEDICARE, OTHER ==
[2018-11-27 22:09] LABS: Anisocytosis Slight; Basophils % (A) 1 %; Eosinophils # (A) 0.1 k/uL (0-0.7); Eosinophils % (A) 2 %; HCT 36.4 % (34.0-46.0); HGB 11.1 gm/dL (11.4-16.0); Hypochromasia Slight; Lymphocytes # (A) 1.1 k/uL (1.0-4.8); Lymphocytes % (A) 21 %; MCH 26.4 pg (25.0-35.0); MCHC 30.4 g/dL (31.0-37.0); MCV 86.7 fL (80.0-100.0); Mean Platelet Volume 7.8; Monocytes # (A) 0.3 k/uL (0-1.0); Monocytes % (A) 5 %; Neutrophils # (A) 3.6 k/uL (1.3-7.7); Neutrophils % (A) 69 %; RBC 4.21 m/uL (3.80-5.40); RDW 16.1 % (11.5-15.5); WBC 5.3 k/uL (3.8-10.6)
--- NOTE | 2018-11-27 22:11 | ED ---
Abdominal Pain HPI - General Chief Complaint: ENT Stated Complaint: NVD, Abdominal Pain Time Seen by Provider: 11/27/18 21:38 Source: patient, EMS Mode of arrival: EMS Limitations: no limitations - History of Present Illness Initial Comments: This patient is a 53-year-old woman with history of MS, who has a suprapubic catheter due to having neurogenic bladder. She states that she started having pain just superior to the catheter site this morning after she woke up. The patient states the pain is a cramping, constant, moderate intensity. She has n ot noted worsening or relieving factors. She states that little after noon she also developed vomiting and has had over 5 episodes of vomiting today. No blood or bile with the vomiting. Patient denies fever or chills. The patient states that for bowel movements she uses digital disimpaction and has not noted any change in the bowels. No blood. MD Complaint: abdominal pain Onset/Timin -: hour(s) Location: suprapubic Radiation: none Migration to: no migration Severity: moderate Quality: cramping Consistency: constant Improves With: nothing Worsens With: nothing Associated Symptoms: nausea, vomiting - Related Data Home Medications Medication Instructions Recorded Confirmed Propranolol HCl [Inderal LA] 160 mg PO HS@199903/07/14 11/27/18 Topiramate [Topamax] 400 mg PO HS@199903/07/14 11/27/18 Levothyroxine Sodium [Synthroid] 100 mcg PO DAILY@0800 07/02/16 11/27/18 Potassium Chloride ER [K-Dur 10] 10 meq PO DAILY@0800 06/13/17 11/27/18 Omeprazole [PriLOSEC] 40 mg PO DAILY@0807/07/17 11/27/18 tiZANidine HCL [Zanaflex] 4 mg PO BID 07/07/17 11/27/18 Rivaroxaban [Xarelto] 20 mg PO DAILY@0800 02/03/18 11/27/18 Lidocaine 5% Patch [Lidoderm 5% 1 patch TOPICAL DAILY 04/02/18 11/27/18 Patch] Magnesium Oxide [Mag-Ox] 125 mg PO Q12H 04/02/18 11/27/18 Oxybutynin ER [Ditropan Xl] 10 mg PO TID@0800,1200,1800 04/02/18 11/27/18 Acetaminophen [Tylenol] 650 mg PO Q6H PRN 08/14/18 11/27/18 Acetaminophen-Codeine 300-30mg 1 tab PO BID PRN 08/14/18 11/27/18 [Tylenol w/codeine #3] Propylene Glycol/Peg 400 [Systane 1 drop BOTH EYES BID@0800,2000 08/14/18 11/27/18 Ultra 0.4-0.3% Eye Drp] Aspirin EC [Ecotrin Low Dose] 81 mg PO DAILY 11/27/18 11/27/18 Temazepam 30 mg PO HS 11/27/18 11/27/18 Allergies Allergy/AdvReac Type Severity Reaction Status Date / Time guaifenesin [From Entex LA] Allergy Anaphylaxis Verified 11/27/18 22:12 phenylephrine HCl Allergy Anaphylaxis Verified 11/27/18 22:12 [From Entex LA] phenylpropanolamine HCl Allergy Anaphylaxis Verified 11/27/18 22:12 [From Entex LA] Sulfa (Sulfonamide Allergy Anaphylaxis Verified 11/27/18 22:12 Antibiotics) tuberculin, purified protein Allergy Anaphylaxis Verified 11/27/18 22:12 deriva [Tuberculin,Purif.Prot.Deriv.] pseudoephedrine HCl AdvReac Swelling Verified 11/27/18 22:12 [From Mucinex D] Review of Systems ROS Statement: Those systems with pertinent positive or pertinent negative responses have been documented in the HPI. ROS Other: All systems not noted in ROS Statement are negative. Constitutional: Denies: fever, chills Respiratory: Denies: cough, dyspnea Cardiovascular: Denies: chest pain, palpitations Gastrointestinal: Reports: as per HPI, abdominal pain, nausea, vomiting, cons tipation (Chronic). Denies: diarrhea, melena, hematochezia Genitourinary: Reports: other (Decreased catheter output). Denies: dysuria, frequency, hematuria Musculoskeletal: Denies: back pain Skin: Denies: rash Neurological: Denies: headache Past Medical History Past Medical History: Cancer, COPD, CVA/TIA, Deep Vein Thrombosis (DVT), Hyperlipidemia, Myocardial Infarction ([place]), Neurologic Disorder, Seizure Disorder, Thyroid Disorder, Vascular Disorder Additional Past Medical History / Comment(s): Multiple Sclerosis - HAS SUPRAPUB IC CATH- pt suffered stroke in september 2014 (which affected non dominant lt side) pt stated now she is able to use lt arm,hand.lt leg paralysis,able to wiggle toes a bit, wears lt leg brace. pt stated she is able to stand and walk w/ walker short distance by leading w/rt leg and drags lt foot-but mostly uses power chair .LAST SEIZURE DVT lt leg approx. (December 2017),. PVD. Migraines. BORN W/ HEART MALFORMATION DEFECT,cervical cancer 1997-had surg & chemo,. RT BREAST CA - lumpectomy only [id number]. rt leg cellulitis-since resolved Last Myocardial Infarction Date:: 2004 History of Any Multi-Drug Resistant Organisms: MRSA Date of last positivie culture/infection: 06/14/15 MDRO Source:: sputum Past Surgical History: Back Surgery, Cholecystectomy, Heart Catheterization, Hysterectomy, Tonsillectomy Additional Past Surgical History / Comment(s): sinus surgery FOR DEVIATED SEPTUM; Rt breast lumpectomy; Rt knee surgery x 4 ARTHROSCOPIES AND ACL RECONSTRUCTION; LAPAROSCOPY, EXC ADHESIONS. Suprapubic Cath.07-28-17 egd w/ stoamch bx-neg, lexiscan stress test. back surgery .lt subclavian port a cath implanted on 01-13-18 pt stated "it's never been accessed". Past Anesthesia/Blood Transfusion Reactions: No Reported Reaction Additional Past Anesthesia/Blood Transfusion Reaction / Comment(s): CLAUSTROPHOBIA Past Psychological History: No Psychological Hx Reported Smoking Status: Former smoker Past Alcohol Use History: None Reported Past Drug Use History: None Reported - Past Family History Father Family Medical History: Diabetes Mellitus, Myocardial Infarction ([place]), Osteoarthritis ([place]) Additional Family Medical History / Comment(s): OPEN HEART SX Mother Family Medical History: Myocardial Infarction ([place]) Additional Family Medical History / Comment(s): LAST YEAR IN HER SLEEP([place]) General Exam Limitations: no limitations General appearance: alert, in no apparent distress Head exam: Present: atraumatic, normocephalic Eye exam: Present: normal appearance. Absent: scleral icterus, conjunctival injection ENT exam: Present: normal oropharynx Neck exam: Present: normal inspection, full ROM Respiratory exam: Present: normal lung sounds bilaterally. Absent: respiratory distress, wheezes, rales, rhonchi, stridor Cardiovascular Exam: Present: regular rate, normal rhythm, normal heart sounds. Absent: systolic murmur, diastolic murmur, rubs, gallop GI/Abdominal exam: Present: soft, tenderness (Mild suprapubic tenderness without rebound or guarding), hypoactive bowel sounds. Absent: distended, guarding, rebound, rigid, mass, pulsatile mass, hernia Extremities exam: Present: normal inspection. Absent: normal capillary refill, pedal edema, calf tenderness Neurological exam: Present: alert Skin exam: Present: warm, dry, intact, normal color. Absent: rash Course Vital Signs 11/27/18 21:34 Temperature 98.3 F Pulse Rate 76 Respiratory 18 Rate Blood Pressure 138/84 O2 Sat by Pulse 97 Oximetry Medical Decision Making - Lab Data Result diagrams: 11/27/18 21:58 11/27/18 21:58 Lab Results 11/27/18 11/27/18 11/27/18 Range/Units 21:58 21:58 21:58 WBC 5.3 (3.8-10.6) k/uL RBC 4.21 (3.80-5.40) m/uL Hgb 11.1 L (11.4-16.0) gm/dL Hct 36.4 (34.0-46.0) % MCV 86.7 (80.0-100.0) fL MCH 26.4 (25.0-35.0) pg MCHC 30.4 L (31.0-37.0) g/dL RDW 16.1 H (11.5-15.5) % Plt Count 285 (150-450) k/uL Neutrophils % 69 % Lymphocytes % 21 % Monocytes % 5 % Eosinophils % 2 % Basophils % 1 % Neutrophils # 3.6 (1.3-7.7) k/uL Lymphocytes # 1.1 (1.0-4.8) k/uL Monocytes # 0.3 (0-1.0) k/uL Eosinophils # 0.1 (0-0.7) k/uL Basophils # 0.0 (0-0.2) k/uL Manual Slide Review Performed Hypochromasia Slight Anisocytosis Slight Sodium 142 (137-145) mmol/L Potassium 4.5 (3.5-5.1) mmol/L Chloride 114 H (98-107) mmol/L Carbon Dioxide 19 L (22-30) mmol/L Anion Gap 9 mmol/L BUN 12 (7-17) mg/dL Creatinine 0.46 L (0.52-1.04) mg/dL Est GFR (CKD-EPI)AfAm >90 (>60 ml/min/1.73 sqM) Est GFR (CKD-EPI)NonAf >90 (>60 ml/min/1.73 sqM) Glucose 97 (74-99) mg/dL Calcium 9.6 (8.4-10.2) mg/dL Total Bilirubin 0.6 (0.2-1.3) mg/dL AST 26 (14-36) U/L ALT 12 (9-52) U/L Alkaline Phosphatase 120 (38-126) U/L Total Protein 7.8 (6.3-8.2) g/dL Albumin 4.4 (3.5-5.0) g/dL Amylase 88 (30-110) U/L Lipase 145 (23-300) U/L Urine Color Yellow Urine Appearance Cloudy H (Clear) Urine pH 5.5 (5.0-8.0) Ur Specific [place] 1.016 (1.001-1.035) Urine Protein Negative (Negative) Urine Glucose (UA) Negative (Negative) Urine Ketones Negative (Negative) Urine Blood Small H (Negative) Urine Nitrite Positive H (Negative) Urine Bilirubin Negative (Negative) Urine Urobilinogen <2.0 (<2.0) mg/dL Ur Leukocyte Esterase Large H (Negative) Urine RBC 6 H (0-5) /hpf Urine WBC 49 H (0-5) /hpf Urine Bacteria Occasional H (None) /hpf Urine Mucus Rare H (None) /hpf Disposition Clinical Impression: Intractable vomiting with nausea, Abdominal pain Disposition: ADMITTED IP TO THIS HOSP Condition: Fair Referrals: Keith Bowers MD [Primary Care Provider] - 1-2 days
[2018-11-27 22:13] LABS: Appearance,Urine Cloudy (Clear); Bacteria,Urine Occasional /hpf; Bilirubin,Urine Negative (Negative); Blood,Urine Small (Negative); Color,Urine Yellow; Glucose,Urine (UA) Negative (Negative); Ketones,Urine Negative (Negative); Leukocyte Esterase,Urine Large (Negative); Mucus,Urine Rare /hpf; Nitrite,Urine Positive (Negative); PH, Urine 5.5 (5.0-8.0); Protein,Urine Negative (Negative); RBC,Urine 6 /hpf (0-5); Specific Gravity,Urine 1.016 (1.001-1.035); Urobilinogen,Urine <2.0 mg/dL (<2.0); WBC,Urine 49 /hpf (0-5)
[2018-11-27 22:26] LABS: Albumin 4.4 g/dL (3.5-5.0); Amylase 88 U/L (30-110); Anion Gap 9 mmol/L; Blood Urea Nitrogen 12 mg/dL (7-17); Calcium 9.6 mg/dL (8.4-10.2); Carbon Dioxide 19 mmol/L (22-30); Chloride 114 mmol/L (98-107); Glucose 97 mg/dL (74-99); Lipase 145 U/L (23-300); Sodium 142 mmol/L (137-145); Total Bilirubin 0.6 mg/dL (0.2-1.3); Total Protein 7.8 g/dL (6.3-8.2)
[2018-11-27 22:28] LABS: Potassium 4.5 mmol/L (3.5-5.1)
[2018-11-27 22:29] LABS: ALT 12 U/L (9-52); AST 26 U/L (14-36); Alkaline Phosphatase 120 U/L (38-126)
[2018-11-27 22:41] LABS: Platelet Count 285 k/uL (150-450)
--- NOTE | 2018-11-27 22:42 | XR ---
History: ITS.REASON XR Reason: Pain Exam: XR KUB 2 images Comparison: FINDINGS: The bowel gas pattern appears within limits. Intraspinal stimulator device and cholecystectomy again noted. No bowel dilation or evidence of mass effect. The visualized osseous structures appear within limits. A few pelvic phleboliths again noted. IMPRESSION: Study appears within limits.
[2018-11-27] MEDS ORDERED: MORPHINE SULFATE 4 MG/ML SYRINGE IV STA (22:55)
[2018-11-27] MEDS ORDERED: ONDANSETRON 4 MG/2 ML VIAL IVP STA (22:55)
[2018-11-28] MEDS ORDERED: ONDANSETRON 4 MG/2 ML VIAL IVP STA (00:32)
[2018-11-28] MEDS ORDERED: MORPHINE SULFATE 4 MG/ML SYRINGE IV STA (00:32)
--- NOTE | 2018-11-28 01:40 | CT ---
History: ITS.REASON CT Reason: Pain Exam: CT ABDOMEN + PELVIS Without Contrast Technique more: CTDI is 8.8 mGy and DLP is 502 mGy-cm. Technique more: This CT exam was performed using one or more of the following dose reduction techniques: automated exposure control, adjustment of the mA and/or kV according to patient size, and/or use of iterative reconstruction technique. Comparison: 07/11/2017 FINDINGS: Platelike area of scar or atelectasis at the right base. Status post cholecystectomy. [place] artifact from intraspinal thoracic stimulator. Abdominal solid organs and abdominal aorta appear within limits on noncontrast imaging. No bowel dilation or free air. Suprapubic catheter collapsed bladder. Normal caliber appendix without secondary signs. No free fluid. IMPRESSION: No evidence of acute process on noncontrast imaging. Platelike area of scar or atelectasis at the right base. Status post cholecystectomy. [place] artifact from intraspinal thoracic stimulator. Suprapubic catheter collapsed bladder.
[2018-11-28] MEDS ORDERED: PROMETHAZINE INJ 25 MG in SODIUM CHLORIDE 0.9% 50 ML IVPB STA (02:08)
[2018-11-28] MEDS ORDERED: HYDROmorphone 0.5 MG/0.5 ML SYRINGE IVP STA (02:09)
[2018-11-28] MEDS ORDERED: PROMETHAZINE 25 MG TAB PO PRN (04:25)
[2018-11-28] MEDS ORDERED: NALOXONE 0.4 MG/ML 1 ML VIAL IV PRN (04:25)
[2018-11-28] MEDS ORDERED: ONDANSETRON 4 MG/2 ML VIAL IVP PRN (04:25)
[2018-11-28] MEDS ORDERED: ACETAMINOPHEN TAB 325 MG TAB PO PRN (04:25)
[2018-11-28] MEDS ORDERED: HYDROmorphone 0.5 MG/0.5 ML SYRINGE IVP PRN (04:25)
[2018-11-28] MEDS ORDERED: PROCHLORPERAZINE SUPPOSITORY 25 MG SUPP RECTAL PRN (04:25)
[2018-11-28] MEDS: SODIUM CHLORIDE 0.9% 1,000 ML IV SCH ×2 (05:17→18:24)
[2018-11-28 06:50] LABS: Glucose,Whole Blood 102 mg/dL (75-99)
[2018-11-28] MEDS: MAGNESIUM OXIDE 400 MG TAB PO SCH ×2 (08:38→18:23)
[2018-11-28] MEDS: LIDOCAINE 5% PATCH TOPICAL SCH (08:38)
[2018-11-28] MEDS: tiZANidine 4 MG TAB PO SCH ×2 (08:39→20:26)
[2018-11-28] MEDS: PANTOPRAZOLE 40 MG TABLET PO SCH (08:39)
[2018-11-28] MEDS: LEVOTHYROXINE 100 MCG TAB PO SCH (08:39)
[2018-11-28] MEDS: ASPIRIN 81 MG PO SCH (08:39)
[2018-11-28] MEDS: POTASSIUM CHLORIDE ER 10 MEQ TAB.ER.PRT PO SCH (08:39)
[2018-11-28] MEDS: OXYBUTYNIN 10 MG TAB.ER.24 PO SCH ×3 (08:39→18:23)
[2018-11-28] MEDS: FAMOTIDINE 20 MG TAB PO SCH ×2 (08:40→20:26)
[2018-11-28] MEDS: ARTIFICIAL TEARS-HYPROMELLOSE DROPS 15 ML BTL BOTH EYES SCH ×2 (08:40→20:25)
[2018-11-28 11:51] LABS: Glucose,Whole Blood 145 mg/dL (75-99)
[2018-11-28 11:54] LABS: Anisocytosis Slight; Basophils # (A) 0.1 k/uL (0-0.2); Basophils % (A) 1 %; Eosinophils # (A) 0.1 k/uL (0-0.7); Eosinophils % (A) 2 %; HCT 35.8 % (34.0-46.0); HGB 10.9 gm/dL (11.4-16.0); Hypochromasia Moderate; Lymphocytes # (A) 0.9 k/uL (1.0-4.8); Lymphocytes % (A) 17 %; MCH 26.8 pg (25.0-35.0); MCHC 30.3 g/dL (31.0-37.0); MCV 88.4 fL (80.0-100.0); Monocytes # (A) 0.3 k/uL (0-1.0); Monocytes % (A) 6 %; Neutrophils # (A) 3.6 k/uL (1.3-7.7); Neutrophils % (A) 71 %; Platelet Count 236 k/uL (150-450); RBC 4.05 m/uL (3.80-5.40); RDW 16.2 % (11.5-15.5); WBC 5.1 k/uL (3.8-10.6)
[2018-11-28 12:05] LABS: Anion Gap 9 mmol/L; Blood Urea Nitrogen 13 mg/dL (7-17); Calcium 9.1 mg/dL (8.4-10.2); Carbon Dioxide 22 mmol/L (22-30); Chloride 110 mmol/L (98-107); Glucose 101 mg/dL (74-99); Potassium 3.9 mmol/L (3.5-5.1); Sodium 141 mmol/L (137-145)
--- NOTE | 2018-11-28 12:16 | P.HPIM ---
History of Present Illness H&P Date: 11/28/18 Chief Complaint: Nausea and vomiting This 53-year-old white female well-known to me with multiple sclerosis. She reports that yesterday she woke up with abdominal pain several centimeters above her suprapubic catheter she has. She reports that she started having nausea and vomiting. She had multiple episodes. She also began experiencing a headache in the posterior aspect of her neck. So the symptoms came significant enough to bring in the emergency room. There were unable to control her nausea or vomiting in the emergency room. In place in observation for further treatment. This morning she reports that the nausea continues, she does not have any [place]. She is tolerating a clear liquid at this time. Her headache is better. Urinalysis does show large leuks and positive nitrates. There is 49 WBCs listed. Other labs are unremarkable. She denies any chest pains, pressures, constipation, or diarrhea. She is equally disimpact herself. She denies any blood in her vomitus. Review of Systems All systems: negative Past Medical History Past Medical History: Cancer (Cervical cancer, right breast cancer history), COPD, CVA/TIA (With left-sided hemiplegia.), Deep Vein Thrombosis (DVT), Hyperlipidemia, Myocardial Infarction ([place]), Neurologic Disorder (Multiple sclerosis), Seizure Disorder (Last seizure July 2017), Thyroid Disorder, Vascular Disorder Last Myocardial Infarction Date:: 2004 History of Any Multi-Drug Resistant Organisms: MRSA Date of last positivie culture/infection: 06/14/15 MDRO Source:: sputum Past Surgical History: Back Surgery, Bladder Surgery (Suprapubic catheter), Breast Surgery (Right breast lumpectomy), Cholecystectomy, Heart Catheterization, Hysterectomy, Orthopedic Surgery (Right knee arthroscopies 4, ), Tonsillectomy Past Anesthesia/Blood Transfusion Reactions: No Reported Reaction Additional Past Anesthesia/Blood Transfusion Reaction / Comment(s): JO ANN TROPHOBIA Past Psychological History: No Psychological Hx Reported Additional Psychological History / Comment(s): pt is but currently at [facility] since september 2017. Smoking Status: Former smoker Past Alcohol Use History: None Reported Additional Past Alcohol Use History / Comment(s): Quit approx 1992, started smoking at age 11.was smoking 2ppd. Past Drug Use History: None Reported Additional Drug Use History / Comment(s): HAS MEDICAL CARD, Doesn't USE. - Past Family History Father Family Medical History: Diabetes Mellitus, Myocardial Infarction ([place]), Osteoarthritis ([place]) Additional Family Medical History / Comment(s): OPEN HEART SX Mother Family Medical History: Myocardial Infarction ([place]) Additional Family Medical History / Comment(s): LAST YEAR IN HER SLEEP([place]) Medications and Allergies Home Medications Medication Instructions Recorded Confirmed Type Propranolol HCl [Inderal LA] 160 mg PO HS@199903/07/14 11/27/18 History Topiramate [Topamax] 400 mg PO HS@199903/07/14 11/27/18 History Levothyroxine Sodium [Synthroid] 100 mcg PO DAILY@79907/02/16 11/27/18 History Potassium Chloride ER [K-Dur 10] 10 meq PO DAILY@00 06/13/17 11/27/18 History Omeprazole [PriLOSEC] 40 mg PO DAILY@0800 07/07/17 11/27/18 History tiZANidine HCL [Zanaflex] 4 mg PO BID 07/07/17 11/27/18 History Rivaroxaban [Xarelto] 20 mg PO DAILY@0800 02/03/18 11/27/18 History Lidocaine 5% Patch [Lidoderm 5% 1 patch TOPICAL DAILY 04/02/18 11/27/18 History Patch] Magnesium Oxide [Mag-Ox] 125 mg PO Q12H 04/02/18 11/27/18 History Oxybutynin ER [Ditropan Xl] 10 mg PO TID@0800,1200,1800 04/02/18 11/27/18 History Acetaminophen [Tylenol] 650 mg PO Q6H PRN 08/14/18 11/27/18 History Acetaminophen-Codeine 300-30mg 1 tab PO BID PRN 08/14/18 11/27/18 History [Tylenol w/codeine #3] Propylene Glycol/Peg 400 [Systane 1 drop BOTH EYES BID@799,199908/14/18 11/27/18 History Ultra 0.4-0.3% Eye Drp] Aspirin EC [Ecotrin Low Dose] 81 mg PO DAILY 11/27/18 11/27/18 History Temazepam 30 mg PO HS 11/27/18 11/27/18 History Lacosamide [Vimpat] 150 mg PO BID 11/28/18 11/28/18 History Allergies Allergy/AdvReac Type Severity Reaction Status Date / Time guaifenesin [From Entex LA] Allergy Anaphylaxis Verified 11/27/18 22:12 phenylephrine HCl Allergy Anaphylaxis Verified 11/27/18 22:12 [From Entex LA] phenylpropanolamine HCl Allergy Anaphylaxis Verified 11/27/18 22:12 [From Entex LA] Sulfa (Sulfonamide Allergy Anaphylaxis Verified 11/27/18 22:12 Antibiotics) tuberculin, purified protein Allergy Anaphylaxis Verified 11/27/18 22:12 deriva [Tuberculin,Purif.Prot.Deriv.] pseudoephedrine HCl AdvReac Swelling Verified 11/27/18 22:12 [From Mucinex D] Physical Exam Vitals: Vital Signs Temp Pulse Pulse Pulse Resp BP BP 11/28/18 10:04 16 11/28/18 08:00 98.2 F 55 L 16 122/62 11/28/18 05:50 98.0 F 67 15 117/63 11/28/18 05:18 52 L 16 128/62 11/28/18 05:05 17 11/27/18 21:34 98.3 F 76 18 138/84 Pulse Ox 11/28/18 10:04 11/28/18 08:00 95 11/28/18 05:50 97 11/28/18 05:18 98 11/28/18 05:05 11/27/18 21:34 97 Intake and Output 11/27/18 11/28/18 11/28/18 22:59 06:59 14:59 Output Total 250 325 Balance -250 -325 Output: Urine 325 Other 250 Other: Voiding Method Indwelling Catheter Weight 68.039 kg GENERAL: Fatigue, well-nourished and in no acute distress. HEAD: Atraumatic, normocephalic. EYES: Pupils equal round and reactive to light, extraocular movements intact, sclera anicteric, conjunctiva are normal. ENT:nares patent, oropharynx clear without exudates. Moist mucous membranes. NECK: Normal range of motion, supple without lymphadenopathy or JVD, no thyromegaly LUNGS: Breath sounds clear to auscultation bilaterally and equal. No wheezes rales or rhonchi. HEART: Regular rate and rhythm without murmurs, rubs or gallops.S1S2 Normal ABDOMEN: Soft, minimally tender above her suprapubic catheter normoactive bowel sounds. No guarding, no rebound. No masses appreciated. Her catheter is clean dry and intact with no periwound erythema ecchymosis or edema noted. EXTREMITIES: Normal range of motion, no pitting or edema. No clubbing or cyanosis. NEUROLOGICAL: Cranial nerves II through XII grossly intact. Normal speech, gait is untestable as she is in bed. 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 PSYCH: Normal mood, normal affect. SKIN: Warm, Dry, normal turgor, no rashes or lesions noted. Results CBC & Chem 7: 11/28/18 11:40 11/28/18 11:40 Labs: Abnormal Lab Results - Last 24 Hours (Table) 11/27/18 11/27/18 11/27/18 Range/Units 21:58 21:58 21:58 Hgb 11.1 L (11.4-16.0) gm/dL MCHC 30.4 L (31.0-37.0) g/dL RDW 16.1 H (11.5-15.5) % Lymphocytes # (1.0-4.8) k/uL Chloride 114 H (98-107) mmol/L Carbon Dioxide 19 L (22-30) mmol/L Creatinine 0.46 L (0.52-1.04) mg/dL Glucose (74-99) mg/dL POC Glucose (mg/dL) (75-99) mg/dL Urine Appearance Cloudy H (Clear) Urine Blood Small H (Negative) Urine Nitrite Positive H (Negative) Ur Leukocyte Esterase Large H (Negative) Urine RBC 6 H (0-5) /hpf Urine WBC 49 H (0-5) /hpf Urine Bacteria Occasional H (None) /hpf Urine Mucus Rare H (None) /hpf 11/28/18 11/28/18 11/28/18 Range/Units 06:47 11:40 11:40 Hgb 10.9 L (11.4-16.0) gm/dL MCHC 30.3 L (31.0-37.0) g/dL RDW 16.2 H (11.5-15.5) % Lymphocytes # 0.9 L (1.0-4.8) k/uL Chloride 110 H (98-107) mmol/L Carbon Dioxide (22-30) mmol/L Creatinine (0.52-1.04) mg/dL Glucose 101 H (74-99) mg/dL POC Glucose (mg/dL) 102 H (75-99) mg/dL Urine Appearance (Clear) Urine Blood (Negative) Urine Nitrite (Negative) Ur Leukocyte Esterase (Negative) Urine RBC (0-5) /hpf Urine WBC (0-5) /hpf Urine Bacteria (None) /hpf Urine Mucus (None) /hpf 11/28/18 Range/Units 11:48 Hgb (11.4-16.0) gm/dL MCHC (31.0-37.0) g/dL RDW (11.5-15.5) % Lymphocytes # (1.0-4.8) k/uL Chloride (98-107) mmol/L Carbon Dioxide (22-30) mmol/L Creatinine (0.52-1.04) mg/dL Glucose (74-99) mg/dL POC Glucose (mg/dL) 145 H (75-99) mg/dL Urine Appearance (Clear) Urine Blood (Negative) Urine Nitrite (Negative) Ur Leukocyte Esterase (Negative) Urine RBC (0-5) /hpf Urine WBC (0-5) /hpf Urine Bacteria (None) /hpf Urine Mucus (None) /hpf CT scan - abdomen: report reviewed Thrombosis Risk Factor Assmnt - DVT/VTE Prophylaxis DVT/VTE Prophylaxis: Mechanical Prophylaxis ordered - Choose All That Apply Each Factor Represents 1 point: Age 41-60 years, Medical pt on bed rest Other Risk Factors: Yes Other congenital or acquired thrombophilia - If yes, enter type in comment: No Thrombosis Risk Factor Assessment Total Risk Factor Score: 2 Thrombosis Risk Factor Assessment Level: Low Risk Assessment and Plan (1) Abdominal pain Current Visit: Yes Status: Acute Code(s): R10.9 - UNSPECIFIED ABDOMINAL PAIN SNOMED Code(s): 02903315 (2) Intractable vomiting with nausea Current Visit: Yes Status: Acute Code(s): R11.2 - NAUSEA WITH VOMITING, UNSPECIFIED SNOMED Code(s): 118919197 (3) Neurogenic bladder Current Visit: No Status: Acute Code(s): N31.9 - NEUROMUSCULAR DYSFUNCTION OF BLADDER, UNSPECIFIED SNOMED Code(s): 683687251 (4) Urinary tract infection Current Visit: No Status: Acute Code(s): N39.0 - URINARY TRACT INFECTION, SITE NOT SPECIFIED SNOMED Code(s): 47147331 (5) Multiple sclerosis Current Visit: No Status: Chronic Code(s): G35 - MULTIPLE SCLEROSIS SNOMED Code(s): 02080772 Plan: I'll give her dose Rocephin for possible UTI. We'll advance her diet as tolerated from clears. She'll continue on her home medications. Continue on Zofran when necessary for nausea. If she does well we'll plan discharge this afternoon oral reevaluate her in the a.m.
[2018-11-28] MEDS: Acetaminophen-Codeine 300-30mg TAB PO PRN (12:52)
[2018-11-28] MEDS ORDERED: SUMAtriptan SUCCINATE 25 MG TAB PO STA (16:16)
[2018-11-28] MEDS ORDERED: SUMAtriptan SUCCINATE 50 MG TAB PO STA (16:22)
[2018-11-28 16:27] LABS: Glucose,Whole Blood 98 mg/dL (75-99)
[2018-11-28] MEDS ORDERED: RIVAROXABAN 20 MG TAB PO SCH (18:00)
[2018-11-28] MEDS ORDERED: TOPIRAMATE 100 MG TAB PO SCH (20:00)
[2018-11-28] MEDS ORDERED: PROPRANOLOL LA 80 MG CAP.SA.24H PO SCH (20:00)
[2018-11-28] MEDS: LACOSAMIDE 150 MG TABLET PO SCH (20:46)
[2018-11-28] MEDS ORDERED: TEMAZEPAM 30 MG CAP PO SCH (21:00)
[2018-11-28 21:16] LABS: Glucose,Whole Blood 84 mg/dL (75-99)
[2018-11-29] MEDS: SODIUM CHLORIDE 0.9% 1,000 ML IV SCH ×3 (02:37→05:27)
[2018-11-29] MEDS: LEVOTHYROXINE 100 MCG TAB PO SCH (05:27)
[2018-11-29] MEDS: OXYBUTYNIN 10 MG TAB.ER.24 PO SCH ×2 (08:13→12:09)
[2018-11-29] MEDS: LIDOCAINE 5% PATCH TOPICAL SCH (08:13)
[2018-11-29] MEDS: Acetaminophen-Codeine 300-30mg TAB PO PRN (08:14)
[2018-11-29] MEDS: ASPIRIN 81 MG PO SCH (08:14)
[2018-11-29] MEDS: MAGNESIUM OXIDE 400 MG TAB PO SCH (08:14)
[2018-11-29] MEDS: FAMOTIDINE 20 MG TAB PO SCH (08:15)
[2018-11-29] MEDS: tiZANidine 4 MG TAB PO SCH (08:15)
[2018-11-29] MEDS: PANTOPRAZOLE 40 MG TABLET PO SCH (08:15)
[2018-11-29] MEDS: POTASSIUM CHLORIDE ER 10 MEQ TAB.ER.PRT PO SCH (08:15)
[2018-11-29 08:17] VITALS: RESP 16
[2018-11-29] MEDS: ARTIFICIAL TEARS-HYPROMELLOSE DROPS 15 ML BTL BOTH EYES SCH (09:57)
[2018-11-29] MEDS: LACOSAMIDE 150 MG TABLET PO SCH (09:57)
[2018-11-29] MEDS ORDERED: SUMAtriptan SUCCINATE 6 MG/0.5 ML VIAL SQ STA (10:20)
--- NOTE | 2018-11-29 10:30 | P.PN ---
Subjective This 53-year-old white female well-known to me with multiple sclerosis. She reports that yesterday she woke up with abdominal pain several centimeters above her suprapubic catheter she has. She reports that she started having nausea and vomiting. She had multiple episodes. She also began experiencing a headache in the posterior aspect of her neck. So the symptoms came significant enough to bring in the emergency room. There were unable to control her nausea or vomiting in the emergency room. In place in observation for further treatment. This morning she reports that the nausea continues, she does not have any [place]. She is tolerating a clear liquid at this time. Her headache is better. Urinalysis does show large leuks and positive nitrates. There is 49 WBCs listed. Other labs are unremarkable. She denies any chest pains, pressures, constipation, or diarrhea. She is usually disimpact herself. She denies any blood in her vomitus. The patient never quite overcame her headache, nor was her nausea improved yesterday enough to be discharged. This a.m. her nausea is better she 25% of her breakfast. She continues to have a migraine though indicates it recurred and is behind her left eye. She is pending subcutaneous injection of Imitrex. Once her headache resolves a plan discharge this afternoon. Objective - Vital Signs Vital signs: Vital Signs Temp 97.7 F 11/29/18 08:00 Pulse 65 11/29/18 08:00 Resp 16 11/29/18 08:00 BP 123/77 11/29/18 08:00 Pulse Ox 97 11/29/18 08:00 Intake & Output 11/28/18 11/29/18 11/29/18 18:59 06:59 18:59 Output Total 1325 600 625 Balance -5591 -600 -437 Output: Urine 1325 600 625 Other: Voiding Method Indwelling Catheter Indwelling Catheter Indwelling Catheter - Exam GENERAL: Fatigue, well-nourished and in no acute distress. NECK: Normal range of motion, supple without lymphadenopathy or JVD, no thyromegaly LUNGS: Breath sounds clear to auscultation bilaterally and equal. No wheezes rales or rhonchi. HEART: Regular rate and rhythm without murmurs, rubs or gallops.S1S2 Normal ABDOMEN: Soft, minimally tender above her suprapubic catheter normoactive bowel sounds. No guarding, no rebound. No masses appreciated. Her catheter is clean dry and intact with no periwound erythema ecchymosis or edema noted. EXTREMITIES: Normal range of motion, no pitting or edema. No clubbing or cyanosis. NEUROLOGICAL: Cranial nerves II through XII grossly intact. Normal speech, gait is untestable as she is in bed. 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 PSYCH: Normal mood, normal affect. SKIN: Warm, Dry, normal turgor, no rashes or lesions noted. - Labs CBC & Chem 7: 11/28/18 11:40 11/28/18 11:40 Labs: Abnormal Lab Results - Last 24 Hours (Table) 11/28/18 11/28/18 11/28/18 Range/Units 11:40 11:40 11:48 Hgb 10.9 L (11.4-16.0) gm/dL MCHC 30.3 L (31.0-37.0) g/dL RDW 16.2 H (11.5-15.5) % Lymphocytes # 0.9 L (1.0-4.8) k/uL Chloride 110 H (98-107) mmol/L Glucose 101 H (74-99) mg/dL POC Glucose (mg/dL) 145 H (75-99) mg/dL Assessment and Plan (1) Abdominal pain Current Visit: Yes Status: Acute Code(s): R10.9 - UNSPECIFIED ABDOMINAL PAIN SNOMED Code(s): 75082407 (2) Intractable vomiting with nausea Current Visit: Yes Status: Acute Code(s): R11.2 - NAUSEA WITH VOMITING, UNSPECIFIED SNOMED Code(s): 072997825 (3) Neurogenic bladder Current Visit: No Status: Acute Code(s): N31.9 - NEUROMUSCULAR DYSFUNCTION OF BLADDER, UNSPECIFIED SNOMED Code(s): 439435448 (4) Urinary tract infection Current Visit: No Status: Acute Code(s): N39.0 - URINARY TRACT INFECTION, SITE NOT SPECIFIED SNOMED Code(s): 30350541 (5) Multiple sclerosis Current Visit: No Status: Chronic Code(s): G35 - MULTIPLE SCLEROSIS SNOMED Code(s): 29267495 (6) Migraine Current Visit: Yes Status: Acute Code(s): G43.909 - MIGRAINE, UNSP, NOT INTRACTABLE, WITHOUT STATUS MIGRAINOSUS SNOMED Code(s): 65980316 Plan: Imitrex subcutaneous 6 mg 1 She'll continue on her home medications. Continue on Zofran when necessary for nausea. If she does well we'll plan discharge this afternoon
[2018-11-29 17:13] VITALS: BP 97/64; PULSE 70; TEMP 98.6
--- NOTE | 2018-12-01 12:08 | P.DS ---
Providers Date of admission: 11/28/18 04:26 Expected date of discharge: 11/29/18 Attending physician: Keith Bowers Primary care physician: Keith Bowers - Discharge Diagnosis(es) (1) Abdominal pain Status: Acute (2) Intractable vomiting with nausea Status: Acute (3) Neurogenic bladder Status: Acute (4) Urinary tract infection Status: Acute (5) Multiple sclerosis Status: Chronic (6) Migraine Status: Acute Hospital Course: This 53-year-old white female well-known to me with multiple sclerosis. She reports that yesterday she woke up with abdominal pain several centimeters above her suprapubic catheter she has. She reports that she started having nausea and vomiting. She had multiple episodes. She also began experiencing a headache in the posterior aspect of her neck. So the symptoms came significant enough to bring in the emergency room. There were unable to control her nausea or vomiting in the emergency room. In place in observation for further treatment. This morning she reports that the nausea continues, she does not have any [place]. She is tolerating a clear liquid at this time. Her headache is better. Urinalysis does show large leuks and positive nitrates. There is 49 WBCs listed. Other labs are unremarkable. She denies any chest pains, pressures, constipation, or diarrhea. She is usually disimpact herself. She denies any blood in her vomitus. 11/29/2018 AM The patient never quite overcame her headache, nor was her nausea improved yesterday enough to be discharged. This a.m. her nausea is better she 25% of her breakfast. She continues to have a migraine though indicates it recurred and is behind her left eye. She is pending subcutaneous injection of Imitrex. Once her headache resolves a plan discharge this afternoon. Addendum 11/29/2018: headache resolved, patient tolerating most of diet. She an be sent home. Patient Condition at Discharge: Fair Plan - Discharge Summary Discharge Rx Participant: Yes New Discharge Prescriptions: Continue Propranolol HCl [Inderal LA] 160 mg PO HS@2000 Topiramate [Topamax] 400 mg PO HS@2000 Levothyroxine Sodium [Synthroid] 100 mcg PO DAILY@0800 Potassium Chloride ER [K-Dur 10] 10 meq PO DAILY@0800 Omeprazole [PriLOSEC] 40 mg PO DAILY@0800 tiZANidine HCL [Zanaflex] 4 mg PO BID Rivaroxaban [Xarelto] 20 mg PO DAILY@0800 Oxybutynin ER [Ditropan Xl] 10 mg PO TID@0800,1200,1800 Magnesium Oxide [Mag-Ox] 125 mg PO Q12H Lidocaine 5% Patch [Lidoderm 5% Patch] 1 patch TOPICAL DAILY Acetaminophen-Codeine 300-30mg [Tylenol w/codeine #3] 1 tab PO BID PRN PRN Reason: Pain Acetaminophen [Tylenol] 650 mg PO Q6H PRN PRN Reason: Pain Propylene Glycol/Peg 400 [Systane Ultra 0.4-0.3% Eye Drp] 1 drop BOTH EYES BID@799,1999 Temazepam 30 mg PO HS Aspirin EC [Ecotrin Low Dose] 81 mg PO DAILY Lacosamide [Vimpat] 150 mg PO BID Discharge Medication List Propranolol HCl [Inderal LA] 160 mg PO HS@199903/07/14 [History] Topiramate [Topamax] 400 mg PO HS@199903/07/14 [History] Levothyroxine Sodium [Synthroid] 100 mcg PO DAILY@0800 07/02/16 [History] Potassium Chloride ER [K-Dur 10] 10 meq PO DAILY@0800 06/13/17 [History] Omeprazole [PriLOSEC] 40 mg PO DAILY@0800 07/07/17 [History] tiZANidine HCL [Zanaflex] 4 mg PO BID 07/07/17 [History] Rivaroxaban [Xarelto] 20 mg PO DAILY@0800 02/03/18 [History] Lidocaine 5% Patch [Lidoderm 5% Patch] 1 patch TOPICAL DAILY 04/02/18 [History] Magnesium Oxide [Mag-Ox] 125 mg PO Q12H 04/02/18 [History] Oxybutynin ER [Ditropan Xl] 10 mg PO TID@0800,1200,1800 04/02/18 [History] Acetaminophen [Tylenol] 650 mg PO Q6H PRN 08/14/18 [History] Acetaminophen-Codeine 300-30mg [Tylenol w/codeine #3] 1 tab PO BID PRN 08/14/18 [History] Propylene Glycol/Peg 400 [Systane Ultra 0.4-0.3% Eye Drp] 1 drop BOTH EYES BID@0800,199908/14/18 [History] Aspirin EC [Ecotrin Low Dose] 81 mg PO DAILY 11/27/18 [History] Temazepam 30 mg PO HS 11/27/18 [History] Lacosamide [Vimpat] 150 mg PO BID 11/28/18 [History] Follow up Appointment(s)/Referral(s): Keith Bowers MD [Primary Care Provider] - 1-2 days Patient Instructions/Handouts: Acute Headache (DC), Acute Abdominal Pain (DC) Discharge Disposition: HOME SELF-CARE
== END 2018-11-29 18:46 | disposition home or self-care (01) ==
LOC: EC 21:31 → 1SOBS 11-28 04:26
PROVIDERS: ADMIT Family Medicine; ATTEND Family Medicine
DX: R11.2 Nausea with vomiting, unspecified (principal); N31.9 Neuromuscular dysfunction of bladder, unspecified; N39.0 Urinary tract infection, site not specified; G35 Multiple sclerosis; G43.909 Migraine, unspecified, not intractable, without status migrainosus; Z96.0 Presence of urogenital implants; E78.5 Hyperlipidemia, unspecified; I25.2 Old myocardial infarction; G40.909 Epilepsy, unspecified, not intractable, without status epilepticus; E07.9 Disorder of thyroid, unspecified; I73.9 Peripheral vascular disease, unspecified; I69.344 Monoplegia of lower limb following cerebral infarction affecting left non-dominant side; I69.354 Hemiplegia and hemiparesis following cerebral infarction affecting left non-dominant side; Z86.718 Personal history of other venous thrombosis and embolism; Z85.41 Personal history of malignant neoplasm of cervix uteri; Z92.21 Personal history of antineoplastic chemotherapy; Z85.3 Personal history of malignant neoplasm of breast; Z86.19 Personal history of other infectious and parasitic diseases; Z86.14 Personal history of Methicillin resistant Staphylococcus aureus infection; Z87.891 Personal history of nicotine dependence; Z90.49 Acquired absence of other specified parts of digestive tract; Z79.890 Hormone replacement therapy; Z79.01 Long term (current) use of anticoagulants; Z79.899 Other long term (current) drug therapy; Z79.82 Long term (current) use of aspirin; Z79.891 Long term (current) use of opiate analgesic; Z88.2 Allergy status to sulfonamides; Z88.8 Allergy status to other drugs, medicaments and biological substances; Z83.3 Family history of diabetes mellitus; Z82.49 Family history of ischemic heart disease and other diseases of the circulatory system
CPT/HCPCS: 96365; 96372; 96376 ×2; 96375 ×2; 99285; 36415; 80053; 80048; 82150; 83690; 85025 ×2; 81001; 74018; 74176; G0378 ×2; J3030; J2270 ×2; J2550; J2405 ×2; J0696; J1170

== ENCOUNTER 2019-02-05 06:51 | Day surgery (SDC) | payer MEDICARE, OTHER ==
[2019-01-20 10:10] VITALS: BMI 26.1
[~2019-02-05 06:51] MED LIST changes: -HEPARIN SODIUM,PORCINE 5,000 UNIT/ML 1 ML VIAL SQ ONE; +KETOROLAC 30 MG/ML 1 ML VIAL IVP SCH; -MIDAZOLAM 2 MG/2 ML VIAL IV PRN; +ONDANSETRON 4 MG/2 ML VIAL IVP PRN; -SCOPOLAMINE 1.5MG/72HR PATCH TRANSDERM ONE
[2019-02-05 07:20] VITALS: TEMP 97.2
[2019-02-05] MEDS ORDERED: KETAMINE 10 MG/ML 20 ML VIAL ONE (08:10)
[2019-02-05] MEDS ORDERED: PROPOFOL 10 MG/ML 20 ML VIAL IV ONE (08:10)
[2019-02-05] MEDS ORDERED: MIDAZOLAM 2 MG/2 ML VIAL ONE (08:10)
[2019-02-05] MEDS ORDERED: fentaNYL (PF) 50 MCG/ML 2 ML AMP ONE (08:10)
[2019-02-05] MEDS ORDERED: LIDOCAINE 1% INJ 10MG/ML (20 ML MDV) SQ ONE (08:31)
[2019-02-05] MEDS ORDERED: BUPIVACAINE-EPI 0.5%-1:200,000 10 ML VIAL SQ ONE (08:31)
--- NOTE | 2019-02-05 09:00 | P.OP ---
Date of Procedure: 02/05/19 Procedure(s) Performed: PREOPERATIVE DIAGNOSES: 1. History of left upper arm abscess with subsequent subcutaneous dermal adhesions POSTOPERATIVE DIAGNOSES: 1. History of left upper arm abscess with subsequent subcutaneous dermal adhesions PROCEDURES PERFORMED: 1. Left upper arm open subcutaneous adhesion release 2. Scar revision, 3 cm with multilayer closure ANESTHESIA: Gen. [employer] PIPE SUPERVISOR: None COMPLICATIONS: None ESTIMATED BLOOD LOSS: 5 mL. DISPOSITION: To post-anesthesia care unit INDICATIONS: [place] is a 54 year old female with a history of abscess involving the left upper extremity. She has developed a dermal adhesion between the dermis and muscle. This is symptomatic for her and she presents to the operating room for adhesion release. Consent has been obtained after discussion of the risks of incision and drainage of this abscess as being inclusive of, but not limited to: Bleeding, further infection, scarring, discomfort, blood vessel and/or nerve damage, failure to relieve symptoms, persistence or recurrence and/or worsening of symptoms or problems, need for further surgery, blood clot, pulmonary embolism, , anesthesia risks, and other risks. PROCEDURE: After appropriate consent was obtained, the patient was taken to the operating room placed in the supine position. Anesthesia was initiated, and after confirmation of adequate anesthesia, the patient was carefully positioned. Care was taken to make sure that all pressure points were adequately padded. Prepping and draping were completed in the usual aseptic fashion using ChloraPrep. Timeout was called, confirming patient identity, side, and procedure. The previous incision was noted and was injected subcutaneously with a solution containing half 1 percent lidocaine and half 0.5% Marcaine solution. Incision was then created directly over the previous incision for a distance of approxi mately 3 cm. The incision was deepened down to subcutaneous tissue which was scarred to the muscular fascia. These adhesions were meticulously released using a dissecting scissor until finger sweep showed no connection between the subcutaneous tissue and the muscle. There is no evidence of active infection. However, cultures were taken for confirmation. Hemostasis was maintained throughout the case using electrocautery and pressure. Scar revision was performed removing approximately 1 mm of skin edge both sides of the wound and then the wound was repaired using a 3-0 Vicryl suture in mul tilayer fashion. Top dressing was Steri-Strips with Mastisol and a pressure dressing using an Anup wrap. Patient tolerated the procedure well and taken to recovery room in stable condition. Sponge counts were correct.
[2019-02-05] MEDS ORDERED: AMOXIC-POT CLAV 875-125MG 1 EACH TAB PO SCH (09:45)
[2019-02-05 10:14] VITALS: BP 105/66; PULSE 54; RESP 20
== END 2019-02-05 10:32 | disposition home or self-care (01) ==
LOC: OR 06:51
PROVIDERS: ATTEND Orthopaedic Surgery
DX: L90.5 Scar conditions and fibrosis of skin (principal); M19.012 Primary osteoarthritis, left shoulder; M65.812 Other synovitis and tenosynovitis, left shoulder; M25.512 Pain in left shoulder; E03.9 Hypothyroidism, unspecified; E78.5 Hyperlipidemia, unspecified; G35 Multiple sclerosis; I69.954 Hemiplegia and hemiparesis following unspecified cerebrovascular disease affecting left non-dominant side; K21.9 Gastro-esophageal reflux disease without esophagitis; F32.9 Major depressive disorder, single episode, unspecified; G47.00 Insomnia, unspecified; R51 Headache; I42.9 Cardiomyopathy, unspecified; K59.00 Constipation, unspecified; R56.9 Unspecified convulsions; Z88.2 Allergy status to sulfonamides; Z87.891 Personal history of nicotine dependence; Z82.49 Family history of ischemic heart disease and other diseases of the circulatory system; Z79.82 Long term (current) use of aspirin; Z79.890 Hormone replacement therapy; Z79.891 Long term (current) use of opiate analgesic; Z79.899 Other long term (current) drug therapy; Z79.01 Long term (current) use of anticoagulants
CPT/HCPCS: 11403; 12032; 87070; 87205; 87075; J2250; J1100; J2405; J2001; J3010; J2704

== ENCOUNTER → 2019-04-20 | Outpatient (CLI) | payer MEDICARE, OTHER ==
--- NOTE | 2019-04-21 04:38 | XR ---
EXAMINATION TYPE: XR shoulder complete 3 views LT, XR elbow complete 3 views LT DATE OF EXAM: 04/20/2019 COMPARISON: Left shoulder radiograph 04/12/2018 HISTORY: 54-year-old female pain, M25.512 FINDINGS: Left shoulder: Mild degenerative change of the AC joint with marginal spurring. Subacromial space is preserved. Foca l lucency marginated by patchy sclerosis in the subarticular region of the humeral head. Suggestion o f mild joint space narrowing at the glenohumeral joint. A subclavian access left-sided injection port is demonstrated. No acute fracture, subluxation, dislocation. Left elbow: No elbow joint effusion. No acute fracture, subluxation, or dislocation. IMPRESSION: 1. Left shoulder: Large focal lucency within the subchondral humeral head marginated by patchy sclero sis. Given the apparent subacute fracture seen on the CT of 04/08/2018, findings may represent incompl ete endosteal bridging and secondary avascular necrosis. No subarticular collapse. Clinical correlati on for an appropriate history of trauma to this region to account for the fracture described on 2017 is recommended. If there is no appropriate history of trauma, other etiologies should be conside red including metastatic disease and epiphyseal-based chondroid lesions. Also, correlate as to the re ason for the patient's left-sided injection port. 2. Left elbow: No acute osseous abnormality seen.
== END | disposition home or self-care (01) ==
LOC: LABWHC1 14:53
PROVIDERS: ATTEND Family Medicine
DX: M25.812 Other specified joint disorders, left shoulder (principal); S42.292D Other displaced fracture of upper end of left humerus, subsequent encounter for fracture with routine healing

== ENCOUNTER → 2019-05-10 | Outpatient (CLI) | payer MEDICARE, OTHER ==
--- NOTE | 2019-05-10 15:02 | CT ---
EXAMINATION TYPE: CT shoulder LT wo con DATE OF EXAM: 05/10/2019 COMPARISON: 04/08/2018 HISTORY: Prior shoulder lesion CT DLP: 267.70 mGycm CONTRAST: None Technique: Imaging is performed to the left shoulder in the axial plane at 3 mm thick sections. Recon structed images in the coronal and sagittal plane are reviewed. Three-D reconstructed images are perf ormed on a separate computer by the technologist. FINDINGS: Head articulates with the glenoid. No acute fractures are evident. There is an irregular hypodense lesion extending from the lateral superior femoral head into the femo ral head. There is thinning of the articular cortex of the humeral head, series 3 image 15 which may be somewhat progressive from the comparison study. There is joint space narrowing compatible with osteoarthritic degenerative change. The glenoid appear s intact. Acromioclavicular junction appears intact. The rotator cuff, which is limited in evaluation on the CT exam, appears grossly intact. IMPRESSIONS: 1. There appears to be progression of the lesion from the 2018 comparison. There is thinning of the superior articular surface of the humerus. Some mild increase size of the lucent lesion may be presen t.
== END ==
LOC: RADCTMAIN 13:44
PROVIDERS: ATTEND Orthopaedic Surgery
DX: R93.7 Abnormal findings on diagnostic imaging of other parts of musculoskeletal system (principal); M25.512 Pain in left shoulder; G35 Multiple sclerosis; Z86.73 Personal history of transient ischemic attack (TIA), and cerebral infarction without residual deficits; M19.012 Primary osteoarthritis, left shoulder; E03.8 Other specified hypothyroidism; Z87.891 Personal history of nicotine dependence; Z98.890 Other specified postprocedural states

== ENCOUNTER 2019-06-07 23:36 | Inpatient (IN) | payer MEDICARE, OTHER ==
[2019-06-08] MEDS ORDERED: methylPREDNISolone SOD SUCCI 125 MG/2 ML VIAL ONE (02:22)
[2019-06-08] MEDS ORDERED: cefTRIAXone IN SWFI 1,000 MG/10 ML SYRINGE IVP ONE (02:22)
[2019-06-08] MEDS ORDERED: SODIUM CHLORIDE 0.9% 1,000 ML BAG ONE (02:22)
[2019-06-08 08:59] LABS: ALT <6 U/L (9-52); AST 24 U/L (14-36); African American GFR (CKD) 79 (>60 ml/min/1.73 sqM); Albumin 4.1 g/dL (3.5-5.0); Alkaline Phosphatase 136 U/L (38-126); Anion Gap 12 mmol/L; Blood Urea Nitrogen 11 mg/dL (7-17); Calcium 9.1 mg/dL (8.4-10.2); Carbon Dioxide 17 mmol/L (22-30); Chloride 110 mmol/L (98-107); Glucose 136 mg/dL (74-99); Magnesium 1.9 mg/dL (1.6-2.3); Non-African American GFR(CKD) 69 (>60 ml/min/1.73 sqM); Potassium 4.4 mmol/L (3.5-5.1); Sodium 139 mmol/L (137-145); Total Bilirubin 0.5 mg/dL (0.2-1.3)
[2019-06-08] MEDS ORDERED: IBUPROFEN 400 MG TAB PO PRN (09:21)
[2019-06-08] MEDS ORDERED: ONDANSETRON 4 MG/2 ML VIAL IVP PRN (09:21)
[2019-06-08 09:43] LABS: Basophils # (A) 0.1 k/uL (0-0.2); Basophils % (A) 1 %; Eosinophils # (A) 0.1 k/uL (0-0.7); Eosinophils % (A) 1 %; HCT 33.4 % (34.0-46.0); HGB 10.2 gm/dL (11.4-16.0); Hypochromasia Marked; Lymphocytes % (A) 8 %; MCH 25.8 pg (25.0-35.0); MCHC 30.5 g/dL (31.0-37.0); MCV 84.5 fL (80.0-100.0); Mean Platelet Volume 7.3; Monocytes # (A) 0.4 k/uL (0-1.0); Monocytes % (A) 4 %; Neutrophils # (A) 9.5 k/uL (1.3-7.7); Neutrophils % (A) 84 %; Platelet Count 302 k/uL (150-450); RBC 3.95 m/uL (3.80-5.40); RDW 15.6 % (11.5-15.5); WBC 11.3 k/uL (3.8-10.6)
[2019-06-08 10:04] LABS: INR 1.2 (<1.2); Prothrombin Time 12.4 sec (9.0-12.0)
[2019-06-08 10:17] LABS: Appearance,Urine Cloudy (Clear); Bacteria,Urine Occasional /hpf; Bilirubin,Urine Negative (Negative); Blood,Urine Trace (Negative); Calcium Oxalate Crystals,Urine Rare /hpf; Color,Urine Yellow; Glucose,Urine (UA) Negative (Negative); Ketones,Urine Negative (Negative); Leukocyte Esterase,Urine Large (Negative); Nitrite,Urine Positive (Negative); Protein,Urine Trace (Negative); RBC,Urine 5 /hpf (0-5); Specific Gravity,Urine 1.015 (1.001-1.035); Urobilinogen,Urine <2.0 mg/dL (<2.0); WBC,Urine 60 /hpf (0-5)
[2019-06-08 10:19] LABS: Amphetamine Screen,Urine Not Detected (NotDetected); Barbiturate Screen,Urine Not Detected (NotDetected); Benzodiazepines Screen,Urine Detected (NotDetected); Cocaine Screen,Urine Not Detected (NotDetected); Methadone Screen, Urine Not Detected (NotDetected); Opiate Screen,Urine Detected (NotDetected); Oxycodone Screen, Urine Not Detected (NotDetected); Phencyclidine Screen,Urine Not Detected (NotDetected); Tricyclic Antidepressant,Urine Not Detected (NotDetected); Urn Cannabinoid Scrn Not Detected (NotDetected)
[2019-06-08] MEDS ORDERED: IPRATROPIUM-ALBUTEROL 3 ML NEB INHALATION PRN (14:10)
--- NOTE | 2019-06-08 14:56 | P.HPIM ---
History of Present Illness H&P Date: 06/08/19 Chief Complaint: Cough, congestion, weakness This is a 54-year-old female with history of multiple sclerosis presented to the ER with confusion, lethargy, cough and multiple other medical issues. Patient recently had seen PCP within the last week for aggravating cough, vague historian. ER had reported to PCP ,patient was very confused/disoriented on admission, toxicology screen reports opiates and benzos. Verbalizes she only takes her Tylenol #4 at nighttime. Patient states she woke up here and didn't realize where she was at. Apparently there is a OP chest x-ray reporting possible pneumonia. ER records currently available given downtime of computers last night. Clinically patient presents with possible bronchitis with right bibasilar pneumonia-right basilar crackles with Limited air entry. Reports hemoptysis and fevers at home, neither witnessed here. Currently Reports productive cough with vo sputum. Afebrile, taking O2 sats in the 90s on room air, WBC 11.3, hemoglobin 10.2, INR 1.2. Sodium 139, BUN 11, creatinine 0.95. Urine reporting large leukocytes, 60 WBCs-asymptomatic, suspect contamination, in a patient with a suprapubic catheter. Alk phos mildly elevated ,136. Influenza A and B. denies chest pain, palpitations. Denies lightheadedness dizziness or focal deficits. Reports worsening cough, congestion for about a week with increased generalized weakness. Denies nausea vomiting or diarrhea. Review of Systems ROS Statement: Those systems with pertinent positive or pertinent negative responses have been documented in the HPI. ROS Other: All systems not noted in ROS Statement are negative. Past Medical History Past Medical History: Cancer, COPD, CVA/TIA, Deep Vein Thrombosis (DVT), Hyperlipidemia, Myocardial Infarction ([place]), Neurologic Disorder, Seizure Disorder, Thyroid Disorder, Vascular Disorder Additional Past Medical History / Comment(s): Multiple Sclerosis - HAS SUPRAPUBIC CATH- pt suffered stroke in september 2014 (which affected non dominant lt side) pt stated now she is able to use lt arm,hand.lt leg paralysis,able to wiggle toes a bit, wears lt leg brace. pt stated she is able to stand and walk w/ walker short distance by leading w/rt leg and drags lt foot-but mostly uses power chair .LAST SEIZURE -2018 DVT lt leg approx. (December 2017),. PVD. Migraines. BORN W/ HEART MALFORMATION DEFECT,cervical cancer 1997-had surg & chemo,. RT BREAST CA - lumpectomy only [id number]. rt leg cellulitis-since resolved, cardiomyopathy Last Myocardial Infarction Date:: 2004 History of Any Multi-Drug Resistant Organisms: MRSA Date of last positivie culture/infection: 06/14/15 MDRO Source:: sputum Past Surgical History: Back Surgery, Bladder Surgery, Breast Surgery, Cholecystectomy, Heart Catheterization, Hysterectomy, Orthopedic Surgery, Tonsillectomy Additional Past Surgical History / Comment(s): sinus surgery FOR DEVIATED SEPTUM; Rt breast lumpectomy; Rt knee surgery x 4 ARTHROSCOPIES AND ACL RECONSTRUCTION; LAPAROSCOPY, EXC ADHESIONS. Suprapubic Cath.,07-28-17 egd w/ stomach bx-neg, lexiscan stress test. back surgery .lt subclavian port a cath implanted on 01-13-18 pt stated "it's never been accessed". Past Anesthesia/Blood Transfusion Reactions: No Reported Reaction Additional Past Anesthesia/Blood Transfusion Reaction / Comment(s): CLAUSTROPHOBIA Smoking Status: Former smoker - Past Family History Father Family Medical History: Diabetes Mellitus, Myocardial Infarction ([place]), Osteoarthritis (OA) Additional Family Medical History / Comment(s): OPEN HEART SX, passed 2016 Mother Family Medical History: Myocardial Infarction ([place]) Additional Family Medical History / Comment(s): 2013 IN HER SLEEP(AK) Medications and Allergies Home Medications Medication Instructions Recorded Confirmed Type Propranolol HCl [Inderal LA] 160 mg PO HS@199903/07/14 06/08/19 History Topiramate [Topamax] 400 mg PO HS@199903/07/14 06/08/19 History Levothyroxine Sodium [Synthroid] 100 mcg PO DAILY@0807/02/16 06/08/19 History Potassium Chloride ER [K-Dur 10] 10 meq PO DAILY@0800 06/13/17 06/08/19 History Omeprazole [PriLOSEC] 40 mg PO DAILY@0807/07/17 06/08/19 History tiZANidine HCL [Zanaflex] 4 mg PO BID 07/07/17 06/08/19 History Rivaroxaban [Xarelto] 20 mg PO DAILY@0800 02/03/18 06/08/19 History Magnesium Oxide [Mag-Ox] 250 mg PO DAILY 04/02/18 06/08/19 History Acetaminophen [Tylenol] 650 mg PO Q6H PRN 08/14/18 06/08/19 History Propylene Glycol/Peg 400 [Systane 1 drop BOTH EYES BID@0800,2000 08/14/18 06/08/19 History Ultra 0.4-0.3% Eye Drp] Aspirin EC [Ecotrin Low Dose] 81 mg PO DAILY 11/27/18 06/08/19 History Lacosamide [Vimpat] 150 mg PO BID 11/28/18 06/08/19 History Acetaminophen with Codeine 1 tab PO Q6H PRN 01/20/19 06/08/19 History [Tylenol with Codeine #4 Tablet] Oxybutynin Chloride [Oxybutynin 15 mg PO BID 06/08/19 06/08/19 History Chloride ER] Temazepam [Restoril] 30 mg PO HS 06/08/19 06/08/19 History Allergies Allergy/AdvReac Type Severity Reaction Status Date / Time guaifenesin [From Entex LA] Allergy Anaphylaxis Verified 06/08/19 09:20 phenylephrine HCl Allergy Anaphylaxis Verified 06/08/19 09:20 [From Entex LA] phenylpropanolamine HCl Allergy Anaphylaxis Verified 06/08/19 09:20 [From Entex LA] Sulfa (Sulfonamide Allergy Anaphylaxis Verified 06/08/19 09:20 Antibiotics) tuberculin, purified protein Allergy Anaphylaxis Verified 06/08/19 09:20 deriva [Tuberculin,Purif.Prot.Deriv.] pseudoephedrine HCl AdvReac Swelling Verified 06/08/19 09:20 [From Mucinex D] Physical Exam Vitals: Intake and Output 06/07/19 06/08/19 06/08/19 22:59 06:59 14:59 Intake Total 75 Balance 75 Intake: Intake, IV Titration 75 Amount Sodium Chloride 0.9% 1, 75 000 ml @ 75 mls/hr IV . [id number] [facility] [place] Rx#:[id number] Other: Weight 70.307 kg GENERAL: Fatigued, sitting up in bed, no acute distress HEAD: Atraumatic, normocephalic. EYES: Pupils equal round and reactive to light, extraocular movements intact, sclera anicteric, conjunctiva are normal. ENT:nares patent, oropharynx clear without exudates. Oral mucous membranes, dry. NECK: Normal range of motion, supple without lymphadenopathy or JVD, no thyromegaly LUNGS: Poor air entry, right basilar crackles. No rhonchi, no wheezes. HEART: Regular rate and rhythm without murmurs, rubs or gallops.S1S2 Normal ABDOMEN: Soft, minimally tender above her suprapubic catheter normoactive bowel sounds. No guarding, no rebound. No masses appreciated. Her catheter is clean dry and intact with no periwound erythema ecchymosis or edema noted. EXTREMITIES: Normal range of motion, no pitting or edema. No clubbing or cyanosis. NEUROLOGICAL: Cranial nerves II through XII grossly intact. Normal speech, gait is untestable as she is in bed. 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 PSYCH: Normal mood, normal affect. SKIN: Warm, Dry, normal turgor, no rashes or lesions noted. Results CBC & Chem 7: 06/08/19 00:58 06/08/19 00:58 Labs: Abnormal Lab Results - Last 24 Hours (Table) 06/08/19 06/08/19 06/08/19 Range/Units 00:58 00:58 00:58 WBC 11.3 H (3.8-10.6) k/uL Hgb 10.2 L (11.4-16.0) gm/dL Hct 33.4 L (34.0-46.0) % MCHC 30.5 L (31.0-37.0) g/dL RDW 15.6 H (11.5-15.5) % Neutrophils # 9.5 H (1.3-7.7) k/uL PT 12.4 H (9.0-12.0) sec INR 1.2 H (<1.2) APTT 42.0 H (22.0-30.0) sec Chloride 110 H (98-107) mmol/L Carbon Dioxide 17 L (22-30) mmol/L Glucose 136 H (74-99) mg/dL ALT <6 L (9-52) U/L Alkaline Phosphatase 136 H (38-126) U/L Urine Appearance (Clear) Urine Protein (Negative) Urine Blood (Negative) Urine Nitrite (Negative) Ur Leukocyte Esterase (Negative) Urine WBC (0-5) /hpf Urine WBC Clumps (None) /hpf Calcium Oxalate Crystal (None) /hpf Urine Bacteria (None) /hpf Urine Opiates Screen (NotDetected) U Benzodiazepines Scrn (NotDetected) 06/08/19 Range/Units 00:58 WBC (3.8-10.6) k/uL Hgb (11.4-16.0) gm/dL Hct (34.0-46.0) % MCHC (31.0-37.0) g/dL RDW (11.5-15.5) % Neutrophils # (1.3-7.7) k/uL PT (9.0-12.0) sec INR (<1.2) APTT (22.0-30.0) sec Chloride (98-107) mmol/L Carbon Dioxide (22-30) mmol/L Glucose (74-99) mg/dL ALT (9-52) U/L Alkaline Phosphatase (38-126) U/L Urine Appearance Cloudy H (Clear) Urine Protein Trace H (Negative) Urine Blood Trace H (Negative) Urine Nitrite Positive H (Negative) Ur Leukocyte Esterase Large H (Negative) Urine WBC 60 H (0-5) /hpf Urine WBC Clumps Many H (None) /hpf Calcium Oxalate Crystal Rare H (None) /hpf Urine Bacteria Occasional H (None) /hpf Urine Opiates Screen Detected H (NotDetected) U Benzodiazepines Scrn Detected H (NotDetected) Assessment and Plan Assessment: Acute bronchitis with possible right lower lobe pneumonia, possibly community- acquired, failed outpatient treatment Dehydration secondary to the above Neurogenic bladder with suprapubic catheter, doubt UTI, suspect contamination Multiple sclerosis Plan: Continue on current medication regime ,monitoring and symptomatic treatment. Rocephin, Zithromax, IV steroids, initiated. Gentle IV fluid hydration. Pulmonary consulted, possibly order a CT-defer to pulmonary. Robbin been reviewed and resumed accordingly. GI prophylaxis in place, Fausto/co mpression hose for DVT prophylaxis as patient reports hemoptysis prior to hospitalization. Close monitoring of CBC with repeat labs ordered for a.m. The impression and plan of care has been dictated as directed. : I performed a history and examination of this patient, discussed the same with the dictator. I agree with the dictator's note ,documented as a scribe. Any additional findings or plans will be noted.
[2019-06-08] MEDS: SODIUM CHLORIDE 0.9% 1,000 ML IV SCH (15:21)
[2019-06-08] MEDS: methylPREDNISolone SOD SUCCI 125 MG/2 ML VIAL IV SCH ×2 (15:21→17:43)
[2019-06-08] MEDS: PANTOPRAZOLE 40 MG/10 ML VIAL IVP SCH (15:21)
[2019-06-08] MEDS: IPRATROPIUM-ALBUTEROL 3 ML NEB INHALATION SCH ×2 (15:21→20:40)
[2019-06-08] MEDS ORDERED: PNEUMOCOCCAL VACC-PNEUMOVAX 23 25 MCG/0.5 ML VIAL IM ONE (15:36)
[2019-06-08] MEDS ORDERED: INFLUENZA VACCINE (6 MOS+) 60 MCG/0.5 ML SYRINGE IM ONE (15:36)
[2019-06-08 17:43] LABS: Glucose,Whole Blood 113 mg/dL (75-99)
[2019-06-08] MEDS: AZITHROMYCIN 500 MG in SODIUM CHLORIDE 0.9% 250 ML IVPB SCH (17:49)
[2019-06-08] MEDS: INSULIN ASPART (NovoLOG) 100 UNIT/ML VIAL SQ SCH ×2 (17:53→21:20)
[2019-06-08] MEDS: ACETAMINOPHEN TAB 325 MG TAB PO PRN (19:31)
[2019-06-08 20:19] LABS: Glucose,Whole Blood 172 mg/dL (75-99)
[2019-06-08] MEDS: PROPRANOLOL LA 80 MG CAP.SA.24H PO SCH (21:19)
[2019-06-08] MEDS: OXYBUTYNIN 15 MG TAB.ER.24 PO SCH (21:19)
[2019-06-08] MEDS: TOPIRAMATE 100 MG TAB PO SCH (21:19)
[2019-06-08] MEDS: ARTIFICIAL TEARS-HYPROMELLOSE DROPS 15 ML BTL BOTH EYES SCH (21:19)
[2019-06-08] MEDS: LACOSAMIDE 150 MG TABLET PO SCH (21:20)
[2019-06-08] MEDS: tiZANidine 4 MG TAB PO SCH (21:20)
[2019-06-08] MEDS: MELATONIN 3 MG TABLET PO SCH (21:20)
[2019-06-09] MEDS: SODIUM CHLORIDE 0.9% 1,000 ML IV SCH ×3 (00:42→21:54)
[2019-06-09] MEDS: methylPREDNISolone SOD SUCCI 125 MG/2 ML VIAL IV SCH ×4 (00:43→17:27)
[2019-06-09] MEDS: ACETAMINOPHEN TAB 325 MG TAB PO PRN (04:50)
[2019-06-09] MEDS: LEVOTHYROXINE 100 MCG TAB PO SCH (06:04)
[2019-06-09 07:39] LABS: Glucose,Whole Blood 154 mg/dL (75-99)
[2019-06-09] MEDS: IPRATROPIUM-ALBUTEROL 3 ML NEB INHALATION SCH ×4 (07:56→19:04)
[2019-06-09] MEDS: INSULIN ASPART (NovoLOG) 100 UNIT/ML VIAL SQ SCH ×4 (08:50→21:54)
[2019-06-09] MEDS: tiZANidine 4 MG TAB PO SCH (08:51)
[2019-06-09] MEDS: POTASSIUM CHLORIDE ER 10 MEQ TAB.ER.PRT PO SCH (08:51)
[2019-06-09] MEDS: MAGNESIUM OXIDE 400 MG TAB PO SCH (08:51)
[2019-06-09] MEDS: PANTOPRAZOLE 40 MG/10 ML VIAL IVP SCH (08:51)
[2019-06-09] MEDS: OXYBUTYNIN 15 MG TAB.ER.24 PO SCH ×2 (08:51→21:56)
[2019-06-09] MEDS: LACOSAMIDE 150 MG TABLET PO SCH ×2 (08:54→21:56)
[2019-06-09] MEDS: ARTIFICIAL TEARS-HYPROMELLOSE DROPS 15 ML BTL BOTH EYES SCH ×2 (08:54→21:55)
[2019-06-09 09:22] LABS: Basophils % (A) 0 %; Eosinophils % (A) 0 %; HCT 30.6 % (34.0-46.0); HGB 9.4 gm/dL (11.4-16.0); Hypochromasia Marked; Lymphocytes # (A) 0.6 k/uL (1.0-4.8); Lymphocytes % (A) 6 %; MCHC 30.6 g/dL (31.0-37.0); MCV 84.8 fL (80.0-100.0); Mean Platelet Volume 7.2; Monocytes # (A) 0.2 k/uL (0-1.0); Monocytes % (A) 2 %; Neutrophils # (A) 9.3 k/uL (1.3-7.7); Neutrophils % (A) 91 %; Platelet Count 279 k/uL (150-450); RBC 3.61 m/uL (3.80-5.40); RDW 15.8 % (11.5-15.5); WBC 10.3 k/uL (3.8-10.6)
[2019-06-09 09:27] LABS: African American GFR (CKD) >90 (>60 ml/min/1.73 sqM); Anion Gap 13 mmol/L; Calcium 9.1 mg/dL (8.4-10.2); Carbon Dioxide 16 mmol/L (22-30); Chloride 115 mmol/L (98-107); Glucose 153 mg/dL (74-99); Non-African American GFR(CKD) >90 (>60 ml/min/1.73 sqM); Potassium 3.9 mmol/L (3.5-5.1); Sodium 144 mmol/L (137-145)
--- NOTE | 2019-06-09 09:31 | P.PN ---
Subjective This is a 54-year-old female with history of multiple sclerosis presented to the ER with confusion, lethargy, cough and multiple other medical issues. Patient recently had seen PCP within the last week for aggravating cough, vague historian. ER had reported to PCP ,patient was very confused/disoriented on admission, toxicology screen reports opiates and benzos. Verbalizes she only takes her Tylenol #4 at nighttime. Patient states she woke up here and didn't realize where she was at. Apparently there is a OP chest x-ray reporting possible pneumonia. ER records currently available given downtime of computers last night. Clinically patient presents with possible bronchitis with right bibasilar pneumonia-right basilar crackles with Limited air entry. Reports hemoptysis and fevers at home, neither witnessed here. Currently Reports pro ductive cough with vo sputum. Afebrile, taking O2 sats in the 90s on room air, WBC 11.3, hemoglobin 10.2, INR 1.2. Sodium 139, BUN 11, creatinine 0.95. Urine reporting large leukocytes, 60 WBCs-asymptomatic, suspect contamination, in a patient with a suprapubic catheter. Alk phos mildly elevated ,136. Influenza A and B. denies chest pain, palpitations. Denies lightheadedness dizziness or focal deficits. Reports worsening cough, congestion for about a week with increased generalized weakness. Denies nausea vomiting or diarrhea. 06/09/2019: Overnight patient's oxygen saturation was in the upper 90s on room air. She is complaining of ongoing cough. Her ER chest x-ray was unavailable for review. She is on her home medications. She is been placed on Rocephin and azithromycin for antibiotic coverage and Solu-Medrol for cough and inflammation. She denies any severe chest pains, pressures, or shortness of breath at this time. She indicates her cough is somewhat better. She has a suprapubic catheter due to her multiple sclerosis. Objective - Vital Signs Vital signs: Vital Signs Temp 97.9 F 06/09/19 05:00 Pulse 70 06/09/19 08:07 Resp 18 06/09/19 05:00 BP 91/54 06/09/19 05:00 Pulse Ox 94 L 06/09/19 05:00 Intake & Output 11/26/19 11/27/19 11/27/19 18:59 06:59 18:59 Intake Total 75 2000 Output Total 3500 Balance 75 -1500 Weight 70.307 kg Intake: Intake, IV Titration 75 Amount Sodium Chloride 0.9% 1, 75 000 ml @ 75 mls/hr IV . [id number] [facility] Rx#:[id number] Oral 2000 Output: Urine 3500 Other: Voiding Method Indwelling Catheter Indwelling Catheter - Exam GENERAL: Awake and alert, and in no acute distress. Minimally coughing during our discussions. NECK: Normal range of motion, supple without lymphadenopathy or JVD, no thyromegaly LUNGS: air exchange is improved this morning. No rhonchi, no wheezes. Minimal decreased breath sounds at the right base compared to the left HEART: Regular rate and rhythm without murmurs, rubs or gallops.S1S2 Normal ABDOMEN: Soft, minimally tender above her suprapubic catheter normoactive bowel sounds. No guarding, no rebound. No masses appreciated. Her catheter is clean dry and intact with no periwound erythema ecchymosis or edema noted. EXTREMITIES: Normal range of motion, no pitting or edema. No clubbing or c yanosis. NEUROLOGICAL: Cranial nerves II through XII grossly intact. Normal speech, gait is untestable as she is in bed. 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 She also has multiple sclerosis causing lower extremity weakness. PSYCH: Normal mood, normal affect. SKIN: Warm, Dry, normal turgor, no rashes or lesions noted. - Labs CBC & Chem 7: 06/09/19 08:40 06/08/19 00:58 Labs: Abnormal Lab Results - Last 24 Hours (Table) 06/08/19 06/08/19 06/08/19 Range/Units 00:58 00:58 00:58 WBC 11.3 H (3.8-10.6) k/uL RBC (3.80-5.40) m/uL Hgb 10.2 L (11.4-16.0) gm/dL Hct 33.4 L (34.0-46.0) % MCHC 30.5 L (31.0-37.0) g/dL RDW 15.6 H (11.5-15.5) % Neutrophils # 9.5 H (1.3-7.7) k/uL Lymphocytes # (1.0-4.8) k/uL PT 12.4 H (9.0-12.0) sec INR 1.2 H (<1.2) APTT 42.0 H (22.0-30.0) sec POC Glucose (mg/dL) (75-99) mg/dL Urine Appearance Cloudy H (Clear) Urine Protein Trace H (Negative) Urine Blood Trace H (Negative) Urine Nitrite Positive H (Negative) Ur Leukocyte Esterase Large H (Negative) Urine WBC 60 H (0-5) /hpf Urine WBC Clumps Many H (None) /hpf Calcium Oxalate Crystal Rare H (None) /hpf Urine Bacteria Occasional H (None) /hpf Urine Opiates Screen Detected H (NotDetected) U Benzodiazepines Scrn Detected H (NotDetected) 06/08/19 06/08/19 06/09/19 Range/Units 17:42 20:13 07:37 WBC (3.8-10.6) k/uL RBC (3.80-5.40) m/uL Hgb (11.4-16.0) gm/dL Hct (34.0-46.0) % MCHC (31.0-37.0) g/dL RDW (11.5-15.5) % Neutrophils # (1.3-7.7) k/uL Lymphocytes # (1.0-4.8) k/uL PT (9.0-12.0) sec INR (<1.2) APTT (22.0-30.0) sec POC Glucose (mg/dL) 113 H 172 H 154 H (75-99) mg/dL Urine Appearance (Clear) Urine Protein (Negative) Urine Blood (Negative) Urine Nitrite (Negative) Ur Leukocyte Esterase (Negative) Urine WBC (0-5) /hpf Urine WBC Clumps (None) /hpf Calcium Oxalate Crystal (None) /hpf Urine Bacteria (None) /hpf Urine Opiates Screen (NotDetected) U Benzodiazepines Scrn (NotDetected) 06/09/19 Range/Units 08:40 WBC (3.8-10.6) k/uL RBC 3.61 L (3.80-5.40) m/uL Hgb 9.4 L (11.4-16.0) gm/dL Hct 30.6 L (34.0-46.0) % MCHC 30.6 L (31.0-37.0) g/dL RDW 15.8 H (11.5-15.5) % Neutrophils # 9.3 H (1.3-7.7) k/uL Lymphocytes # 0.6 L (1.0-4.8) k/uL PT (9.0-12.0) sec INR (<1.2) APTT (22.0-30.0) sec POC Glucose (mg/dL) (75-99) mg/dL Urine Appearance (Clear) Urine Protein (Negative) Urine Blood (Negative) Urine Nitrite (Negative) Ur Leukocyte Esterase (Negative) Urine WBC (0-5) /hpf Urine WBC Clumps (None) /hpf Calcium Oxalate Crystal (None) /hpf Urine Bacteria (None) /hpf Urine Opiates Screen (NotDetected) U Benzodiazepines Scrn (NotDetected) Assessment and Plan (1) Acute exacerbation of chronic obstructive airways disease Current Visit: No Status: Acute Code(s): J44.1 - CHRONIC OBSTRUCTIVE PULMONARY DISEASE W (ACUTE) EXACERBATION SNOMED Code(s): 504233328 (2) Pneumonia Current Visit: Yes Status: Acute Code(s): J18.9 - PNEUMONIA, UNSPECIFIED ORGANISM SNOMED Code(s): 600055888 (3) Neurogenic bladder Current Visit: Yes Status: Acute Code(s): N31.9 - NEUROMUSCULAR DYSFUNCTION OF BLADDER, UNSPECIFIED SNOMED Code(s): 489880322 (4) Suprapubic catheter Current Visit: Yes Status: Acute Code(s): Z93.59 - OTHER CYSTOSTOMY STATUS SNOMED Code(s): 370411062 (5) Failure of outpatient treatment Current Visit: No Status: Acute Code(s): Z78.9 - OTHER SPECIFIED HEALTH STATUS SNOMED Code(s): 122345376 (6) Multiple sclerosis Current Visit: No Status: Chronic Code(s): G35 - MULTIPLE SCLEROSIS SNOMED Code(s): 96380706 Plan: Continue on Rocephin and Zithromax. Continue on IV Solu-Medrol. Pulmonary consult pending. Repeat chest x-ray this morning. Labs are pending for this a.m. he will be reevaluated then. She looks quite improved, will attempt to discharge her in the next 12-24 hours, in light of the upcoming holiday.
[2019-06-09 09:50] LABS: Blood Urea Nitrogen 11 mg/dL (7-17)
--- NOTE | 2019-06-09 10:06 | XR ---
EXAMINATION TYPE: XR chest 2V DATE OF EXAM: 06/09/2019 COMPARISON: 08/14/2018 INDICATION: Pneumonia TECHNIQUE: Frontal and lateral views of the chest are obtained. FINDINGS: The heart size is normal. The pulmonary vasculature is normal. There is a curvilinear opacity over the left diaphragm at the cardiac apex. This is most likely withi n the lingula. Clinical correlation recommended for lingular pneumonia. Stimulator leads are within the mid thoracic region. Left central venous catheter is present with tip in superior vena cava regio n. IMPRESSION: 1. Clinical correlation recommended for lingular pneumonia
[2019-06-09] MEDS: AZITHROMYCIN 500 MG in SODIUM CHLORIDE 0.9% 250 ML IVPB SCH (10:45)
[2019-06-09 11:47] LABS: Glucose,Whole Blood 158 mg/dL (75-99)
--- NOTE | 2019-06-09 16:59 | P.CNPUL ---
History of Present Illness Consult date: 06/09/19 Reason for consult: pneumonia History of present illness: 54-year-old female patient, known history of advanced multiple sclerosis with neurogenic bladder and the patient has a superpubic catheter in place, along with chronic difficulties mobility and gait and the patient is utilizing a power scooter to get around. The patient has had also previous history of stroke and she has left-sided weakness. No dysphagia. No 70 aspiration the past. She has had multiple urine checked infection and checking the cultures reviewed previous growth with VRE, Pseudomonas, staph aureus, enterococcus, Citrobacter. The last culture was a combination of VRE and Pseudomonas. The patient came into the hospital because of generalized weakness and congestion. Currently she is on room air oxygen. Chest x-ray shows a lingular infiltrate and the patient was diagnosed having and ammonia and she was started on a combination of Rocephin and Zithromax. Nevertheless, the UA was abnormal and there is obvious suspicion for recurrent urine checked infection. Cultures still pending for now. She is hemodynamic is stable. She is tolerating her diet. The mental status is is back to baseline for now. Renal function stable with a creatinine of 0.9. I nfluenza A and B were negative. White seconds at 10.4. Review of Systems All systems: negative Constitutional: Reports poor appetite, Reports weakness Eyes: denies blurred vision, denies bulging eye, denies decreased vision Ears: deny: decreased hearing, ear discharge, earache, tinnitus Ears, nose, mouth and throat: Denies headache, Denies sore throat Breasts: absent: as per HPI, change in shape, gynecomastia, masses, nipple disch arge, pain, skin changes, swelling Cardiovascular: Reports decreased exercise tolerance Respiratory: Reports cough Gastrointestinal: Denies abdominal pain, Denies diarrhea, Denies nausea, Denies vomiting Genitourinary: Reports as per HPI (Frequent UTIs and the patient is a very catheter in place) Musculoskeletal: Reports atrophy, Reports gait dysfunction, Reports leg numbn ess/tingling, Reports limitation of motion, Reports muscle cramps Musculoskeletal: absent: ankle pain, ankle stiffness, ankle swelling Integumentary: Denies pruritus, Denies rash Neurological: Reports ataxia, Reports balance difficulties, Reports change in mentation, Reports gait dysfunction, Reports paresthesias, Reports spasticity, Reports weakness Psychiatric: Reports as per HPI Endocrine: Reports as per HPI Hematologic/Lymphatic: Reports as per HPI Allergic/Immunologic: Reports as per HPI Past Medical History Past Medical History: Cancer, COPD, CVA/TIA, Deep Vein Thrombosis (DVT), Hyperlipidemia, Myocardial Infarction ([place]), Neurologic Disorder, Seizure Disorder, Thyroid Disorder, Vascular Disorder Additional Past Medical History / Comment(s): Multiple sclerosis, CVA in 205 with weakness L arm and paralysis L leg, wheelchair bound, suprapubic catheter- last changed 05/31/19, R breast cancer with lumpectomy, cervical cancer with surgery/chemo, DVT L leg, last seizure 08/2018, PVD, chronic low back pain, DDD, migraines, concussion in 2013, L proximal humerus/shoulder osteomyelitis, current L shoulder lesion-to have follow up, past R leg cellulitis, pt was born with heart malformation/defect, hypothyroid. Last Myocardial Infarction Date:: 2004 History of Any Multi-Drug Resistant Organisms: MRSA Date of last positivie culture/infection: 06/14/15 MDRO Source:: sputum Past Surgical History: Back Surgery, Bladder Surgery, Breast Surgery, Cholecystectomy, Heart Catheterization, Hysterectomy, Orthopedic Surgery, Tonsi llectomy Additional Past Surgical History / Comment(s): Open subcutaneous skin/scar tissue release L arm, L upper arm lesion removed, sinus surgery FOR DEVIATED SEPTUM; Rt breast lumpectomy; Rt knee surgery x 4 ARTHROSCOPIES AND ACL RECONSTRUCTION; LAPAROSCOPY, EXC ADHESIONS. Suprapubic Cath.,07-28-17 egd w/ stomach bx-neg, back pain injections, spinal stimulator, PICCs, lt subclavian port a cath implanted on 01-13-18 pt stated "it's never been accessed". Past Anesthesia/Blood Transfusion Reactions: No Reported Reaction Additional Past Anesthesia/Blood Transfusion Reaction / Comment(s): CLAUSTROPHOBIA Smoking Status: Former smoker - Past Family History Father Family Medical History: Diabetes Mellitus, Myocardial Infarction ([place]), Ost eoarthritis ([place]) Additional Family Medical History / Comment(s): Father fell and suffered brain edema and . He had CABG. He at the age of 77yrs Mother Family Medical History: Myocardial Infarction ([place]) Additional Family Medical History / Comment(s): Mother of a [place] at the age of 70 Medications and Allergies Home Medications Medication Instructions Recorded Confirmed Type Propranolol HCl [Inderal LA] 160 mg PO HS@199903/07/14 06/08/19 History Topiramate [Topamax] 400 mg PO HS@199903/07/14 06/08/19 History Levothyroxine Sodium [Synthroid] 100 mcg PO DAILY@0800 07/02/16 06/08/19 History Potassium Chloride ER [K-Dur 10] 10 meq PO DAILY@0800 06/13/17 06/08/19 History Omeprazole [PriLOSEC] 40 mg PO DAILY@0800 07/07/17 06/08/19 History tiZANidine HCL [Zanaflex] 4 mg PO BID 07/07/17 06/08/19 History Rivaroxaban [Xarelto] 20 mg PO DAILY@0802/03/18 06/08/19 History Magnesium Oxide [Mag-Ox] 250 mg PO DAILY 04/02/18 06/08/19 History Acetaminophen [Tylenol] 650 mg PO Q6H PRN 08/14/18 06/08/19 History Propylene Glycol/Peg 400 [Systane 1 drop BOTH EYES BID@08,199908/14/18 06/08/19 History Ultra 0.4-0.3% Eye Drp] Aspirin EC [Ecotrin Low Dose] 81 mg PO DAILY 11/27/18 06/08/19 History Lacosamide [Vimpat] 150 mg PO BID 11/28/18 06/08/19 History Acetaminophen with Codeine 1 tab PO Q6H PRN 01/20/19 06/08/19 History [Tylenol with Codeine #4 Tablet] Oxybutynin Chloride [Oxybutynin 15 mg PO BID 06/08/19 06/08/19 History Chloride ER] Temazepam [Restoril] 30 mg PO HS 06/08/19 06/08/19 History Allergies Allergy/AdvReac Type Severity Reaction Status Date / Time guaifenesin [From Entex LA] Allergy Anaphylaxis Verified 06/08/19 09:20 phenylephrine HCl Allergy Anaphylaxis Verified 06/08/19 09:20 [From Entex LA] phenylpropanolamine HCl Allergy Anaphylaxis Verified 06/08/19 09:20 [From Entex LA] Sulfa (Sulfonamide Allergy Anaphylaxis Verified 06/08/19 09:20 Antibiotics) tuberculin, purified protein Allergy Anaphylaxis Verified 06/08/19 09:20 deriva [Tuberculin,Purif.Prot.Deriv.] pseudoephedrine HCl AdvReac Swelling Verified 06/08/19 09:20 [From Mucinex D] Physical Exam Vitals: Vital Signs Temp Pulse Pulse Resp BP Pulse Ox 06/09/19 15:57 76 06/09/19 15:46 78 06/09/19 13:56 97.0 F L 82 18 95/61 98 06/09/19 11:32 68 06/09/19 11:20 68 06/09/19 08:07 70 06/09/19 07:56 70 06/09/19 05:00 97.9 F 66 18 91/54 94 L 06/08/19 21:00 98.1 F 79 18 119/76 98 06/08/19 20:53 86 06/08/19 20:40 86 Intake and Output 06/09/19 06/09/19 06/09/19 06:59 14:59 22:59 Intake Total 1000 Output Total 1500 600 Balance -500 -600 Intake: Oral 1000 Output: Urine 1500 600 GENERAL: Fatigued, sitting up in bed, no acute distress, the patient is on room air oxygen and she denies having any respiratory distress and she is able to speak of. This is without any major difficulties. HEAD: Atraumatic, normocephalic. EYES: Pupils equal round and reactive to light, extraocular movements intact, sclera anicteric, conjunctiva are normal. ENT:nares patent, oropharynx clear without exudates. Oral mucous membranes, dry. NECK: Normal range of motion, supple without lymphadenopathy or JVD, no thyromegaly LUNGS: Poor air entry, right basilar crackles. No rhonchi, no wheezes. HEART: Regular rate and rhythm without murmurs, rubs or gallops.S1S2 Normal ABDOMEN: Soft, minimally tender above her suprapubic catheter normoactive bowel sounds. No guarding, no rebound. No masses appreciated. Her catheter is clean dry and intact with no periwound erythema ecchymosis or edema noted. EXTREMITIES: Examination of the extremities revealed easily palpable radial, femoral and pedal pulses. There was no cyanosis, clubbing or edema. NEUROLOGICAL: Cranial nerves II through XII grossly intact. Normal speech, gait is untestable as she is in bed. 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 PSYCH: Normal mood, normal affect. SKIN: Warm, Dry, normal turgor, no rashes or lesions noted. Results - Laboratory Findings CBC and BMP: 06/09/19 08:40 06/09/19 08:40 PT/INR, D-dimer PT 12.4 sec (9.0-12.0) H 06/08/19 00:58 INR 1.2 (<1.2) H 06/08/19 00:58 Abnormal lab findings: Abnormal Labs 06/08/19 06/08/19 06/08/19 00:58 00:58 00:58 WBC 11.3 H RBC Hgb 10.2 L Hct 33.4 L MCHC 30.5 L RDW 15.6 H Neutrophils # 9.5 H Lymphocytes # PT 12.4 H INR 1.2 H APTT 42.0 H Chloride 110 H Carbon Dioxide 17 L Glucose 136 H POC Glucose (mg/dL) ALT <6 L Alkaline Phosphatase 136 H Urine Appearance Urine Protein Urine Blood Urine Nitrite Ur Leukocyte Esterase Urine WBC Urine WBC Clumps Calcium Oxalate Crystal Urine Bacteria Urine Opiates Screen U Benzodiazepines Scrn 06/08/19 06/08/19 06/08/19 00:58 17:42 20:13 WBC RBC Hgb Hct MCHC RDW Neutrophils # Lymphocytes # PT INR APTT Chloride Carbon Dioxide Glucose POC Glucose (mg/dL) 113 H 172 H ALT Alkaline Phosphatase Urine Appearance Cloudy H Urine Protein Trace H Urine Blood Trace H Urine Nitrite Positive H Ur Leukocyte Esterase Large H Urine WBC 60 H Urine WBC Clumps Many H Calcium Oxalate Crystal Rare H Urine Bacteria Occasional H Urine Opiates Screen Detected H U Benzodiazepines Scrn Detected H 06/09/19 06/09/19 06/09/19 07:37 08:40 08:40 WBC RBC 3.61 L Hgb 9.4 L Hct 30.6 L MCHC 30.6 L RDW 15.8 H Neutrophils # 9.3 H Lymphocytes # 0.6 L PT INR APTT Chloride 115 H Carbon Dioxide 16 L Glucose 153 H POC Glucose (mg/dL) 154 H ALT Alkaline Phosphatase Urine Appearance Urine Protein Urine Blood Urine Nitrite Ur Leukocyte Esterase Urine WBC Urine WBC Clumps Calcium Oxalate Crystal Urine Bacteria Urine Opiates Screen U Benzodiazepines Scrn 06/09/19 11:45 WBC RBC Hgb Hct MCHC RDW Neutrophils # Lymphocytes # PT INR APTT Chloride Carbon Dioxide Glucose POC Glucose (mg/dL) 158 H ALT Alkaline Phosphatase Urine Appearance Urine Protein Urine Blood Urine Nitrite Ur Leukocyte Esterase Urine WBC Urine WBC Clumps Calcium Oxalate Crystal Urine Bacteria Urine Opiates Screen U Benzodiazepines Scrn - Diagnostic Findings Chest x-ray: image reviewed Assessment and Plan Plan: 1 altered mentation with consideration for an underlying infectious cause causing change in mental status in this patient. For now the patient on broad- spectrum antibiotics and the mentation is recovered and is back to its baseline. 2 suspected lingular pneumonia as the patient is a new infiltrate in the lingular segment of the left lung 3 suspect a recurrent UTI as the patient is of multiple infections with various bacteria including VRE, Pseudomonas, Citrobacter and staph aureus 4 multiple sclerosis with significant neurologic impairment and motor deficits and the patient is currently wheelchair-bound 5 history of CVA with left lower extremity weakness 6 history of suprapubic catheter for neurogenic bladder with subsequent frequent urinary tract infections 7 hyperlipidemia 8 seizure disorder 9 history of DVT of the left lower extremity back in December 2017 10 peripheral vascular disease 11 migraines 12 history of cervical cancer back in 1997 13 history of breast cancer in 2003. Lumpectomy 14 previous history of humeral head fracture 15 insomnia Plan Awaiting urine and blood cultures. Keep the same antibiotic coverage. Overall suspicion for pneumonia as low. Consultation is to be given for recurrent UTIs. There may be a component of MS exacerbation in setting of an acute infectious process. Patient is on IV Solu-Medrol.. We'll continue to follow. We'll repeat a chest x-ray with the next 24-48 hours.
[2019-06-09 17:07] LABS: Glucose,Whole Blood 157 mg/dL (75-99)
[2019-06-09] MEDS: AZITHROMYCIN 500 MG TAB PO SCH (17:26)
[2019-06-09 21:24] LABS: Glucose,Whole Blood 125 mg/dL (75-99)
[2019-06-09] MEDS: TOPIRAMATE 100 MG TAB PO SCH (21:55)
[2019-06-09] MEDS: MELATONIN 3 MG TABLET PO SCH (21:55)
[2019-06-09] MEDS: PROPRANOLOL LA 80 MG CAP.SA.24H PO SCH (21:56)
[2019-06-10] MEDS: methylPREDNISolone SOD SUCCI 125 MG/2 ML VIAL IV SCH ×4 (01:13→18:15)
[2019-06-10] MEDS: ACETAMINOPHEN TAB 325 MG TAB PO PRN (01:17)
[2019-06-10] MEDS: LEVOTHYROXINE 100 MCG TAB PO SCH (05:42)
[2019-06-10 07:13] LABS: Glucose,Whole Blood 120 mg/dL (75-99)
[2019-06-10] MEDS: IPRATROPIUM-ALBUTEROL 3 ML NEB INHALATION SCH ×4 (08:38→20:46)
[2019-06-10] MEDS: LACOSAMIDE 150 MG TABLET PO SCH ×2 (08:50→20:25)
[2019-06-10] MEDS: MAGNESIUM OXIDE 400 MG TAB PO SCH (08:50)
[2019-06-10] MEDS: PANTOPRAZOLE 40 MG TABLET PO SCH (08:50)
[2019-06-10] MEDS: POTASSIUM CHLORIDE ER 10 MEQ TAB.ER.PRT PO SCH (08:50)
[2019-06-10] MEDS: OXYBUTYNIN 15 MG TAB.ER.24 PO SCH ×2 (08:50→20:25)
[2019-06-10] MEDS: INSULIN ASPART (NovoLOG) 100 UNIT/ML VIAL SQ SCH ×4 (08:51→20:30)
[2019-06-10] MEDS: Acetaminophen-Codeine 300-30mg TAB PO PRN ×2 (08:54→20:23)
[2019-06-10] MEDS: ARTIFICIAL TEARS-HYPROMELLOSE DROPS 15 ML BTL BOTH EYES SCH ×2 (09:00→20:25)
[2019-06-10 09:55] LABS: Anisocytosis Slight; Basophils % (A) 0 %; Eosinophils % (A) 0 %; HCT 32.5 % (34.0-46.0); HGB 9.9 gm/dL (11.4-16.0); Hypochromasia Marked; Lymphocytes # (A) 0.6 k/uL (1.0-4.8); Lymphocytes % (A) 6 %; MCH 26.1 pg (25.0-35.0); MCHC 30.5 g/dL (31.0-37.0); MCV 85.3 fL (80.0-100.0); Mean Platelet Volume 7.6; Monocytes # (A) 0.3 k/uL (0-1.0); Monocytes % (A) 3 %; Neutrophils # (A) 8.2 k/uL (1.3-7.7); Neutrophils % (A) 90 %; Platelet Count 321 k/uL (150-450); RDW 16.4 % (11.5-15.5); WBC 9.1 k/uL (3.8-10.6)
[2019-06-10 10:08] LABS: African American GFR (CKD) >90 (>60 ml/min/1.73 sqM); Anion Gap 14 mmol/L; Blood Urea Nitrogen 11 mg/dL (7-17); Calcium 9.1 mg/dL (8.4-10.2); Carbon Dioxide 18 mmol/L (22-30); Chloride 115 mmol/L (98-107); Glucose 132 mg/dL (74-99); Non-African American GFR(CKD) >90 (>60 ml/min/1.73 sqM); Sodium 147 mmol/L (137-145)
[2019-06-10 11:36] LABS: Glucose,Whole Blood 130 mg/dL (75-99)
--- NOTE | 2019-06-10 11:51 | P.PN ---
Subjective Progress Note Date: 06/10/19 On today's evaluation of 06/10/2019, the patient is still having some cough and some occasional headaches. She remains on a combination of Rocephin and Zithromax. Cultures are still pending for now. He is afebrile. She is hemodynamically stable. She is receiving DuoNeb nebulized treatment around-the- clock. A repeat chest x-ray will be done tomorrow. Objective - Vital Signs Vital signs: Vital Signs Temp 98.1 F 06/10/19 05:41 Pulse 66 06/10/19 11:43 Resp 16 06/10/19 08:00 BP 105/67 06/10/19 05:41 Pulse Ox 96 06/10/19 05:41 Intake & Output 06/09/19 06/10/19 06/10/19 18:59 06:59 18:59 Output Total 600 2300 Balance -600 -2300 Output: Urine 600 2300 Other: Voiding Method Indwelling Catheter - Exam GENERAL: Fatigued, sitting up in bed, no acute distress, the patient is on room air oxygen and she denies having any respiratory distress and she is able to speak of. This is without any major difficulties. HEAD: Atraumatic, normocephalic. EYES: Pupils equal round and reactive to light, extraocular movements intact, sclera anicteric, conjunctiva are normal. ENT:nares patent, oropharynx clear without exudates. Oral mucous membranes, dry. NECK: Normal range of motion, supple without lymphadenopathy or JVD, no thyromegaly LUNGS: Poor air entry, right basilar crackles. No rhonchi, no wheezes. HEART: Regular rate and rhythm without murmurs, rubs or gallops.S1S2 Normal ABDOMEN: Soft, minimally tender above her suprapubic catheter normoactive bowel sounds. No guarding, no rebound. No masses appreciated. Her catheter is clean dry and intact with no periwound erythema ecchymosis or edema noted. EXTREMITIES: Examination of the extremities revealed easily palpable radial, femoral and pedal pulses. There was no cyanosis, clubbing or edema. NEUROLOGICAL: Cranial nerves II through XII grossly intact. Normal speech, gait is untestable as she is in bed. 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 PSYCH: Normal mood, normal affect. SKIN: Warm, Dry, normal turgor, no rashes or lesions noted. - Labs CBC & Chem 7: 06/10/19 09:34 06/10/19 09:34 Labs: Abnormal Lab Results - Last 24 Hours (Table) 06/09/19 06/09/19 06/10/19 Range/Units 17:05 21:23 07:10 Hgb (11.4-16.0) gm/dL Hct (34.0-46.0) % MCHC (31.0-37.0) g/dL RDW (11.5-15.5) % Neutrophils # (1.3-7.7) k/uL Lymphocytes # (1.0-4.8) k/uL Sodium (137-145) mmol/L Chloride (98-107) mmol/L Carbon Dioxide (22-30) mmol/L Glucose (74-99) mg/dL POC Glucose (mg/dL) 157 H 125 H 120 H (75-99) mg/dL 06/10/19 06/10/19 06/10/19 Range/Units 09:34 09:34 11:32 Hgb 9.9 L (11.4-16.0) gm/dL Hct 32.5 L (34.0-46.0) % MCHC 30.5 L (31.0-37.0) g/dL RDW 16.4 H (11.5-15.5) % Neutrophils # 8.2 H (1.3-7.7) k/uL Lymphocytes # 0.6 L (1.0-4.8) k/uL Sodium 147 H (137-145) mmol/L Chloride 115 H (98-107) mmol/L Carbon Dioxide 18 L (22-30) mmol/L Glucose 132 H (74-99) mg/dL POC Glucose (mg/dL) 130 H (75-99) mg/dL Assessment and Plan Plan: 1 altered mentation with consideration for an underlying infectious cause causing change in mental status in this patient. For now the patient on broad- spectrum antibiotics and the mentation is recovered and is back to its baseline. 2 suspected lingular pneumonia as the patient is a new infiltrate in the lingular segment of the left lung 3 suspect a recurrent UTI as the patient is of multiple infections with various bacteria including VRE, Pseudomonas, Citrobacter and staph aureus 4 multiple sclerosis with significant neurologic impairment and motor deficits and the patient is currently wheelchair-bound 5 history of CVA with left lower extremity weakness 6 history of suprapubic catheter for neurogenic bladder with subsequent frequent urinary tract infections 7 hyperlipidemia 8 seizure disorder 9 history of DVT of the left lower extremity back in December 2017 10 peripheral vascular disease 11 migraines 12 history of cervical cancer back in 1997 13 history of breast cancer in 2003. Lumpectomy 14 previous history of humeral head fracture 15 insomnia Plan In cultures. Repeat chest x-ray in the morning. Continue same antibiotic coverage. Provide this patient Robitussin DM for cough every 6 hours. We'll follow.
[2019-06-10] MEDS ORDERED: BENZONATATE 100 MG CAP PO PRN (11:55)
--- NOTE | 2019-06-10 11:55 | P.PN ---
Subjective This is a 54-year-old female with history of multiple sclerosis presented to the ER with confusion, lethargy, cough and multiple other medical issues. Patient recently had seen PCP within the last week for aggravating cough, vague historian. ER had reported to PCP ,patient was very confused/disoriented on admission, toxicology screen reports opiates and benzos. Verbalizes she only takes her Tylenol #4 at nighttime. Patient states she woke up here and didn't realize where she was at. Apparently there is a OP chest x-ray reporting possible pneumonia. ER records currently available given downtime of computers last night. Clinically patient presents with possible bronchitis with right bibasilar pneumonia-right basilar crackles with Limited air entry. Reports hemoptysis and fevers at home, neither witnessed here. Currently Reports pro ductive cough with vo sputum. Afebrile, taking O2 sats in the 90s on room air, WBC 11.3, hemoglobin 10.2, INR 1.2. Sodium 139, BUN 11, creatinine 0.95. Urine reporting large leukocytes, 60 WBCs-asymptomatic, suspect contamination, in a patient with a suprapubic catheter. Alk phos mildly elevated ,136. Influenza A and B. denies chest pain, palpitations. Denies lightheadedness dizziness or focal deficits. Reports worsening cough, congestion for about a week with increased generalized weakness. Denies nausea vomiting or diarrhea. 06/09/2019: Overnight patient's oxygen saturation was in the upper 90s on room air. She is complaining of ongoing cough. Her ER chest x-ray was unavailable for review. She is on her home medications. She is been placed on Rocephin and azithromycin for antibiotic coverage and Solu-Medrol for cough and inflammation. She denies any severe chest pains, pressures, or shortness of breath at this time. She indicates her cough is somewhat better. She has a suprapubic catheter due to her multiple sclerosis. 06/02/2019: Patient continues complaining of coughing. She said it kept her up all night. Chest x-ray showed a lingular pneumonia. Pulmonology consultation was reviewed. She remains on Rocephin and azithromycin, along with Solu-Medrol. She denies any significant chest pains pressures or shortness of breath. Oxygen saturations remained normal on room air. She denies any nausea or vomiting. She has a suprapubic catheter due to her MS and neurogenic bladder. She is also complaining of right shoulder pain. This is been an ongoing problem for her as she had osteomyelitis in the humeral head at one time. She is scheduled see orthopedics outpatient for this. Objective - Vital Signs Vital signs: Vital Signs Temp 98.1 F 06/10/19 05:41 Pulse 66 06/10/19 11:43 Resp 16 06/10/19 08:00 BP 105/67 06/10/19 05:41 Pulse Ox 96 06/10/19 05:41 Intake & Output 06/09/19 06/10/19 06/10/19 18:59 06:59 18:59 Output Total 600 2300 Balance -600 -2300 Output: Urine 600 2300 Other: Voiding Method Indwelling Catheter - Exam GENERAL: Awake and alert, and in no acute distress. Minimally coughing during our discussions. NECK: Normal range of motion, supple without lymphadenopathy or JVD, no thyromegaly LUNGS: air exchange is improved this morning. No rhonchi, no wheezes. Mostly clear to auscultation bilaterally HEART: Regular rate and rhythm without murmurs, rubs or gallops.S1S2 Normal ABDOMEN: Soft, minimally tender above her suprapubic catheter normoactive bowel sounds. No guarding, no rebound. No masses appreciated. Her catheter is clean dry and intact with no periwound erythema ecchymosis or edema noted. EXTREMITIES: Normal range of motion, no pitting or edema. No clubbing or cyanosis. NEUROLOGICAL: Cranial nerves II through XII grossly intact. Normal speech, ga it is untestable as she is in bed. 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 She also has multiple sclerosis causing lower extremity weakness. PSYCH: Normal mood, normal affect. SKIN: Warm, Dry, normal turgor, no rashes or lesions noted. - Labs CBC & Chem 7: 06/10/19 09:34 06/10/19 09:34 Labs: Abnormal Lab Results - Last 24 Hours (Table) 06/09/19 06/09/19 06/10/19 Range/Units 17:05 21:23 07:10 Hgb (11.4-16.0) gm/dL Hct (34.0-46.0) % MCHC (31.0-37.0) g/dL RDW (11.5-15.5) % Neutrophils # (1.3-7.7) k/uL Lymphocytes # (1.0-4.8) k/uL Sodium (137-145) mmol/L Chloride (98-107) mmol/L Carbon Dioxide (22-30) mmol/L Glucose (74-99) mg/dL POC Glucose (mg/dL) 157 H 125 H 120 H (75-99) mg/dL 06/10/19 06/10/19 06/10/19 Range/Units 09:34 09:34 11:32 Hgb 9.9 L (11.4-16.0) gm/dL Hct 32.5 L (34.0-46.0) % MCHC 30.5 L (31.0-37.0) g/dL RDW 16.4 H (11.5-15.5) % Neutrophils # 8.2 H (1.3-7.7) k/uL Lymphocytes # 0.6 L (1.0-4.8) k/uL Sodium 147 H (137-145) mmol/L Chloride 115 H (98-107) mmol/L Carbon Dioxide 18 L (22-30) mmol/L Glucose 132 H (74-99) mg/dL POC Glucose (mg/dL) 130 H (75-99) mg/dL Assessment and Plan (1) Pneumonia Current Visit: Yes Status: Acute Code(s): J18.9 - PNEUMONIA, UNSPECIFIED ORGANISM SNOMED Code(s): 087621415 (2) Acute exacerbation of chronic obstructive airways disease Current Visit: No Status: Acute Code(s): J44.1 - CHRONIC OBSTRUCTIVE PULMONARY DISEASE W (ACUTE) EXACERBATION SNOMED Code(s): 994323710 (3) Neurogenic bladder Current Visit: Yes Status: Acute Code(s): N31.9 - NEUROMUSCULAR DYSFUNCTION OF BLADDER, UNSPECIFIED SNOMED Code(s): 544427775 (4) Suprapubic catheter Current Visit: Yes Status: Acute Code(s): Z93.59 - OTHER CYSTOSTOMY STATUS SNOMED Code(s): 227677812 (5) Failure of outpatient treatment Current Visit: No Status: Acute Code(s): Z78.9 - OTHER SPECIFIED HEALTH STATUS SNOMED Code(s): 071769611 (6) Multiple sclerosis Current Visit: No Status: Chronic Code(s): G35 - MULTIPLE SCLEROSIS SNOMED Code(s): 93483399 (7) Right shoulder pain Current Visit: Yes Status: Acute Code(s): M25.511 - PAIN IN RIGHT SHOULDER SNOMED Code(s): 81710509 (8) Hyperlipidemia Current Visit: Yes Status: Chronic Code(s): E78.5 - HYPERLIPIDEMIA, UNSPECIFIED SNOMED Code(s): 96940071 (9) CVA, old, hemiparesis Current Visit: Yes Status: Chronic Code(s): I69.359 - HEMIPLGA FOLLOWING CEREBRAL INFARCTION AFFECTING UNSP SIDE SNOMED Code(s): 916888122 (10) Anemia in chronic illness Current Visit: Yes Status: Chronic Code(s): D63.8 - ANEMIA IN OTHER CHRONIC DISEASES CLASSIFIED ELSEWHERE SNOMED Code(s): 945066726 Plan: Continue on Rocephin and Zithromax. Continue on IV Solu-Medrol. Pulmonary recommendations pending. Repeat chest x-ray this morning. Repeat labs in a.m.. She is improved, I'll add something for cough, we'll reevaluate her in the next 24 hours.
[2019-06-10] MEDS: guaiFENesin-DM 100-10MG/5ML 10 ML CUP PO SCH ×2 (14:34→18:17)
[2019-06-10 17:15] LABS: Glucose,Whole Blood 114 mg/dL (75-99)
[2019-06-10] MEDS: AZITHROMYCIN 500 MG TAB PO SCH (18:15)
[2019-06-10] MEDS: SODIUM CHLORIDE 0.9% 1,000 ML IV SCH (18:18)
[2019-06-10] MEDS: TOPIRAMATE 100 MG TAB PO SCH (20:24)
[2019-06-10] MEDS: TEMAZEPAM 15 MG CAP PO SCH (20:24)
[2019-06-10] MEDS: MELATONIN 3 MG TABLET PO SCH (20:25)
[2019-06-10] MEDS: PROPRANOLOL LA 80 MG CAP.SA.24H PO SCH (20:25)
[2019-06-10 20:31] LABS: Glucose,Whole Blood 121 mg/dL (75-99)
[2019-06-11] MEDS: methylPREDNISolone SOD SUCCI 125 MG/2 ML VIAL IV SCH ×4 (01:05→17:50)
[2019-06-11] MEDS: guaiFENesin-DM 100-10MG/5ML 10 ML CUP PO SCH ×4 (01:06→17:51)
[2019-06-11] MEDS: LEVOTHYROXINE 100 MCG TAB PO SCH (05:48)
[2019-06-11] MEDS: SODIUM CHLORIDE 0.9% 1,000 ML IV SCH ×2 (05:49→17:34)
[2019-06-11 07:23] LABS: Glucose,Whole Blood 110 mg/dL (75-99)
[2019-06-11] MEDS: IPRATROPIUM-ALBUTEROL 3 ML NEB INHALATION SCH ×4 (07:30→20:39)
--- NOTE | 2019-06-11 08:34 | XR ---
EXAMINATION TYPE: XR chest 1V DATE OF EXAM: 06/11/2019 HISTORY: Shortness of breath. COMPARISON: 06/09/2019 TECHNIQUE: Single view of the chest is submitted. FINDINGS: Demonstrated are scattered senescent parenchymal change. Subclavian central venous line noted be in place with its distal tip overlying the SVC. Left basilar infiltrate persists although is improved. The heart is stable. Hilar and mediastinal structures are within normal limits. Degenerative changes are seen of the dorsal spine. IMPRESSION: 1. Left basilar infiltrate persists although is improved.
[2019-06-11] MEDS: INSULIN ASPART (NovoLOG) 100 UNIT/ML VIAL SQ SCH ×4 (08:40→20:59)
[2019-06-11] MEDS: PANTOPRAZOLE 40 MG TABLET PO SCH (08:44)
[2019-06-11] MEDS: POTASSIUM CHLORIDE ER 10 MEQ TAB.ER.PRT PO SCH (08:44)
[2019-06-11] MEDS: ARTIFICIAL TEARS-HYPROMELLOSE DROPS 15 ML BTL BOTH EYES SCH ×2 (08:44→20:52)
[2019-06-11] MEDS: OXYBUTYNIN 15 MG TAB.ER.24 PO SCH ×2 (08:44→20:49)
[2019-06-11] MEDS: MAGNESIUM OXIDE 400 MG TAB PO SCH (08:44)
[2019-06-11] MEDS: LACOSAMIDE 150 MG TABLET PO SCH ×2 (08:44→20:41)
[2019-06-11 09:14] LABS: Anisocytosis Slight; Basophils % (A) 0 %; Eosinophils % (A) 0 %; HCT 32.6 % (34.0-46.0); HGB 9.9 gm/dL (11.4-16.0); Hypochromasia Moderate; Lymphocytes # (A) 0.5 k/uL (1.0-4.8); Lymphocytes % (A) 7 %; MCH 25.6 pg (25.0-35.0); MCHC 30.2 g/dL (31.0-37.0); MCV 84.6 fL (80.0-100.0); Mean Platelet Volume 7.4; Monocytes # (A) 0.2 k/uL (0-1.0); Monocytes % (A) 2 %; Neutrophils # (A) 6.3 k/uL (1.3-7.7); Neutrophils % (A) 90 %; Platelet Count 313 k/uL (150-450); RBC 3.86 m/uL (3.80-5.40); RDW 16.4 % (11.5-15.5)
[2019-06-11 09:23] LABS: African American GFR (CKD) >90 (>60 ml/min/1.73 sqM); Anion Gap 14 mmol/L; Blood Urea Nitrogen 13 mg/dL (7-17); Calcium 9.1 mg/dL (8.4-10.2); Carbon Dioxide 18 mmol/L (22-30); Chloride 112 mmol/L (98-107); Glucose 134 mg/dL (74-99); Non-African American GFR(CKD) >90 (>60 ml/min/1.73 sqM); Potassium 3.6 mmol/L (3.5-5.1); Sodium 144 mmol/L (137-145)
[2019-06-11] MEDS: Acetaminophen-Codeine 300-30mg TAB PO PRN ×2 (10:50→20:47)
--- NOTE | 2019-06-11 11:12 | P.PN ---
Subjective Progress Note Date: 06/11/19 On 06/11/2019 the patient is still coughing although it's less. It's mainly worse at nighttime. I gave her Robitussin, to which she did not have any ALLERGIC reaction and she was able to tolerate. No fever. No chills. She remains on Rocephin and Zithromax combination. She is still having some crac kles in the left lung area and the follow-up chest x-ray shows some persistent infiltration although improved compared to her earlier chest x-ray. I did not see a urine culture pending on this patient has important for us to obtain urine culture based on her previous history of recurrent UTIs. Objective - Vital Signs Vital signs: Vital Signs Temp 97.9 F 06/11/19 05:16 Pulse 72 06/11/19 07:43 Resp 15 06/11/19 05:16 BP 113/67 06/11/19 05:16 Pulse Ox 92 L 06/11/19 05:16 Intake & Output 06/10/19 06/11/19 06/11/19 18:59 06:59 18:59 Output Total 1000 2300 1400 Balance -1000 -2300 -1400 Output: Urine 1000 2300 1400 Other: Voiding Method Indwelling Catheter Indwelling Catheter # Voids 450 - Exam GENERAL: Fatigued, sitting up in bed, no acute distress, the patient is on room air oxygen and she denies having any respiratory distress and she is able to speak of. This is without any major difficulties. HEAD: Atraumatic, normocephalic. EYES: Pupils equal round and reactive to light, extraocular movements intact, sclera anicteric, conjunctiva are normal. ENT:nares patent, oropharynx clear without exudates. Oral mucous membranes, d ry. NECK: Normal range of motion, supple without lymphadenopathy or JVD, no thyromegaly LUNGS: Poor air entry, left basilar crackles. No rhonchi, no wheezes. Overall breath sounds are diminished bilaterally. HEART: Regular rate and rhythm without murmurs, rubs or gallops.S1S2 Normal ABDOMEN: Soft, minimally tender above her suprapubic catheter normoactive bowel sounds. No guarding, no rebound. No masses appreciated. Her catheter is clean dry and intact with no periwound erythema ecchymosis or edema noted. EXTREMITIES: Examination of the extremities revealed easily palpable radial, femoral and pedal pulses. There was no cyanosis, clubbing or edema. NEUROLOGICAL: Cranial nerves II through XII grossly intact. Normal speech, gait is untestable as she is in bed. 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 PSYCH: Normal mood, normal affect. SKIN: Warm, Dry, normal turgor, no rashes or lesions noted. - Labs CBC & Chem 7: 06/11/19 08:38 06/11/19 08:38 Labs: Abnormal Lab Results - Last 24 Hours (Table) 06/10/19 06/10/19 06/10/19 Range/Units 11:32 17:13 20:29 Hgb (11.4-16.0) gm/dL Hct (34.0-46.0) % MCHC (31.0-37.0) g/dL RDW (11.5-15.5) % Lymphocytes # (1.0-4.8) k/uL Chloride (98-107) mmol/L Carbon Dioxide (22-30) mmol/L Glucose (74-99) mg/dL POC Glucose (mg/dL) 130 H 114 H 121 H (75-99) mg/dL 06/11/19 06/11/19 06/11/19 Range/Units 07:20 08:38 08:38 Hgb 9.9 L (11.4-16.0) gm/dL Hct 32.6 L (34.0-46.0) % MCHC 30.2 L (31.0-37.0) g/dL RDW 16.4 H (11.5-15.5) % Lymphocytes # 0.5 L (1.0-4.8) k/uL Chloride 112 H (98-107) mmol/L Carbon Dioxide 18 L (22-30) mmol/L Glucose 134 H (74-99) mg/dL POC Glucose (mg/dL) 110 H (75-99) mg/dL Assessment and Plan Plan: 1 altered mentation , recovered and the mental status normalized. 2 left lung pneumonia/lingular, improving on today's chest x-ray and she is on a combination of Rocephin and Zithromax and she is taking Robitussin for cough 3 suspect a recurrent UTI as the patient is of multiple infections with various bacteria including VRE, Pseudomonas, Citrobacter and staph aureus, awaiting follow-up urine cultures 4 multiple sclerosis with significant neurologic impairment and motor deficits and the patient is currently wheelchair-bound 5 history of CVA with left lower extremity weakness 6 history of suprapubic catheter for neurogenic bladder with subsequent frequent urinary tract infections 7 hyperlipidemia 8 seizure disorder 9 history of DVT of the left lower extremity back in December 2017 10 peripheral vascular disease 11 migraines 12 history of cervical cancer back in 1997 13 history of breast cancer in 2003. Lumpectomy 14 previous history of humeral head fracture 15 insomnia Plan Chest x-rays improving. Continue antibiotics. Continue steroids. Continue Robitussin. Obtain urine cultures. We'll continue to follow. Reduced IV fluids to 20 mL an hour.
[2019-06-11 11:52] LABS: Glucose,Whole Blood 111 mg/dL (75-99)
--- NOTE | 2019-06-11 12:33 | P.PN ---
Subjective This is a 54-year-old female with history of multiple sclerosis presented to the ER with confusion, lethargy, cough and multiple other medical issues. Patient recently had seen PCP within the last week for aggravating cough, vague historian. ER had reported to PCP ,patient was very confused/disoriented on admission, toxicology screen reports opiates and benzos. Verbalizes she only takes her Tylenol #4 at nighttime. Patient states she woke up here and didn't realize where she was at. Apparently there is a OP chest x-ray reporting possible pneumonia. ER records currently available given downtime of computers last night. Clinically patient presents with possible bronchitis with right bibasilar pneumonia-right basilar crackles with Limited air entry. Reports hemoptysis and fevers at home, neither witnessed here. Currently Reports pro ductive cough with vo sputum. Afebrile, taking O2 sats in the 90s on room air, WBC 11.3, hemoglobin 10.2, INR 1.2. Sodium 139, BUN 11, creatinine 0.95. Urine reporting large leukocytes, 60 WBCs-asymptomatic, suspect contamination, in a patient with a suprapubic catheter. Alk phos mildly elevated ,136. Influenza A and B. denies chest pain, palpitations. Denies lightheadedness dizziness or focal deficits. Reports worsening cough, congestion for about a week with increased generalized weakness. Denies nausea vomiting or diarrhea. 06/09/2019: Overnight patient's oxygen saturation was in the upper 90s on room air. She is complaining of ongoing cough. Her ER chest x-ray was unavailable for review. She is on her home medications. She is been placed on Rocephin and azithromycin for antibiotic coverage and Solu-Medrol for cough and inflammation. She denies any severe chest pains, pressures, or shortness of breath at this time. She indicates her cough is somewhat better. She has a suprapubic catheter due to her multiple sclerosis. 06/10/2019: Patient continues complaining of coughing. She said it kept her up all night. Chest x-ray showed a lingular pneumonia. Pulmonology consultation was reviewed. She remains on Rocephin and azithromycin, along with Solu-Medrol. She denies any significant chest pains pressures or shortness of breath. Oxygen saturations remained normal on room air. She denies any nausea or vomiting. She has a suprapubic catheter due to her MS and neurogenic bladder. She is also complaining of right shoulder pain. This is been an ongoing problem for her as she had osteomyelitis in the humeral head at one time. She is scheduled see orthopedics outpatient for this. 06/11/2019: Overall patient is doing better. She complains of mostly cough at night. She is taking Robitussin and/or Tessalon Perles needed. She remains on antibiotics Rocephin and Zithromax. She remains on Solu-Medrol. Chest x-ray shows persistent infiltration compared to the earlier x-ray per pulmonology. I discussed the case with them personally. The urine cultures not done, so another one will be obtained for culture. She denies any current chest pains or pressures. No shortness of breath at rest. Tolerating her diet. Objective - Vital Signs Vital signs: Vital Signs Temp 97.9 F 06/11/19 05:16 Pulse 72 06/11/19 11:28 Resp 15 06/11/19 05:16 BP 113/67 06/11/19 05:16 Pulse Ox 92 L 06/11/19 05:16 Intake & Output 06/10/19 06/11/19 06/11/19 18:59 06:59 18:59 Output Total 1000 2300 1400 Balance -1000 -2300 -1400 Output: Urine 1000 2300 1400 Other: Voiding Method Indwelling Catheter Indwelling Catheter # Voids 450 - Exam GENERAL: Awake and alert, and in no acute distress. Minimally coughing during our discussions. NECK: Normal range of motion, supple without lymphadenopathy or JVD, no thyromegaly LUNGS: air exchange is improved this morning. No rhonchi, no wheezes. Mostly clear to auscultation bilaterally HEART: Regular rate and rhythm without murmurs, rubs or gallops.S1S2 Normal ABDOMEN: Soft, minimally tender above her suprapubic catheter normoactive bowel sounds. No guarding, no rebound. No masses appreciated. Her catheter is clean dry and intact with no periwound erythema ecchymosis or edema noted. EXTREMITIES: Normal range of motion, no pitting or edema. No clubbing or cyanosis. NEUROLOGICAL: Cranial nerves II through XII grossly intact. Normal speech, gait is untestable as she is in bed. 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 She also has multiple sclerosis causing lower extremity weakness. PSYCH: Normal mood, normal affect. SKIN: Warm, Dry, normal turgor, no rashes or lesions noted. - Labs CBC & Chem 7: 06/11/19 08:38 06/11/19 08:38 Labs: Abnormal Lab Results - Last 24 Hours (Table) 06/10/19 06/10/19 06/11/19 Range/Units 17:13 20:29 07:20 Hgb (11.4-16.0) gm/dL Hct (34.0-46.0) % MCHC (31.0-37.0) g/dL RDW (11.5-15.5) % Lymphocytes # (1.0-4.8) k/uL Chloride (98-107) mmol/L Carbon Dioxide (22-30) mmol/L Glucose (74-99) mg/dL POC Glucose (mg/dL) 114 H 121 H 110 H (75-99) mg/dL 06/11/19 06/11/19 06/11/19 Range/Units 08:38 08:38 11:50 Hgb 9.9 L (11.4-16.0) gm/dL Hct 32.6 L (34.0-46.0) % MCHC 30.2 L (31.0-37.0) g/dL RDW 16.4 H (11.5-15.5) % Lymphocytes # 0.5 L (1.0-4.8) k/uL Chloride 112 H (98-107) mmol/L Carbon Dioxide 18 L (22-30) mmol/L Glucose 134 H (74-99) mg/dL POC Glucose (mg/dL) 111 H (75-99) mg/dL Assessment and Plan (1) Pneumonia Current Visit: Yes Status: Acute Code(s): J18.9 - PNEUMONIA, UNSPECIFIED ORGANISM SNOMED Code(s): 954309796 (2) Acute exacerbation of chronic obstructive airways disease Current Visit: No Status: Acute Code(s): J44.1 - CHRONIC OBSTRUCTIVE PULMONARY DISEASE W (ACUTE) EXACERBATION SNOMED Code(s): 309049770 (3) Neurogenic bladder Current Visit: Yes Status: Acute Code(s): N31.9 - NEUROMUSCULAR DYSFUNCTION OF BLADDER, UNSPECIFIED SNOMED Code(s): 879434494 (4) Suprapubic catheter Current Visit: Yes Status: Acute Code(s): Z93.59 - OTHER CYSTOSTOMY STATUS SNOMED Code(s): 649882603 (5) Failure of outpatient treatment Current Visit: No Status: Acute Code(s): Z78.9 - OTHER SPECIFIED HEALTH STATUS SNOMED Code(s): 549221049 (6) Multiple sclerosis Current Visit: No Status: Chronic Code(s): G35 - MULTIPLE SCLEROSIS SNOMED Code(s): 26699549 (7) Right shoulder pain Current Visit: Yes Status: Acute Code(s): M25.511 - PAIN IN RIGHT SHOULDER SNOMED Code(s): 43859643 (8) Hyperlipidemia Current Visit: Yes Status: Chronic Code(s): E78.5 - HYPERLIPIDEMIA, UNSPECIFIED SNOMED Code(s): 67267557 (9) CVA, old, hemiparesis Current Visit: Yes Status: Chronic Code(s): I69.359 - HEMIPLGA FOLLOWING CEREBRAL INFARCTION AFFECTING UNSP SIDE SNOMED Code(s): 455000085 (10) Anemia in chronic illness Current Visit: Yes Status: Chronic Code(s): D63.8 - ANEMIA IN OTHER CHRONIC DISEASES CLASSIFIED ELSEWHERE SNOMED Code(s): 334170980 Plan: Continue on Rocephin and Zithromax. Continue on IV Solu-Medrol. Pulmonary recommendations pending. . Repeat labs in a.m.. She is improved, a plan discharge tomorrow, confirm urine was obtained for culture we'll reevaluate her in the next 24 hours.
[2019-06-11 17:06] LABS: Glucose,Whole Blood 129 mg/dL (75-99)
[2019-06-11] MEDS: AZITHROMYCIN 500 MG TAB PO SCH (17:51)
[2019-06-11 20:29] LABS: Glucose,Whole Blood 139 mg/dL (75-99)
[2019-06-11] MEDS: TEMAZEPAM 15 MG CAP PO SCH (20:41)
[2019-06-11] MEDS: MELATONIN 3 MG TABLET PO SCH (20:42)
[2019-06-11] MEDS: TOPIRAMATE 100 MG TAB PO SCH (20:42)
[2019-06-11] MEDS: PROPRANOLOL LA 80 MG CAP.SA.24H PO SCH (20:49)
[2019-06-12] MEDS: guaiFENesin-DM 100-10MG/5ML 10 ML CUP PO SCH ×3 (00:22→11:46)
[2019-06-12] MEDS: methylPREDNISolone SOD SUCCI 125 MG/2 ML VIAL IV SCH ×3 (00:22→11:46)
[2019-06-12] MEDS: LEVOTHYROXINE 100 MCG TAB PO SCH (05:45)
[2019-06-12 07:13] LABS: Glucose,Whole Blood 126 mg/dL (75-99)
[2019-06-12] MEDS: INSULIN ASPART (NovoLOG) 100 UNIT/ML VIAL SQ SCH ×2 (07:21→12:59)
[2019-06-12] MEDS: PANTOPRAZOLE 40 MG TABLET PO SCH (07:23)
[2019-06-12] MEDS: POTASSIUM CHLORIDE ER 10 MEQ TAB.ER.PRT PO SCH (07:23)
[2019-06-12] MEDS: LACOSAMIDE 150 MG TABLET PO SCH (07:23)
[2019-06-12] MEDS: MAGNESIUM OXIDE 400 MG TAB PO SCH (07:23)
[2019-06-12] MEDS: OXYBUTYNIN 15 MG TAB.ER.24 PO SCH (07:25)
[2019-06-12] MEDS: ARTIFICIAL TEARS-HYPROMELLOSE DROPS 15 ML BTL BOTH EYES SCH (07:30)
[2019-06-12] MEDS: IPRATROPIUM-ALBUTEROL 3 ML NEB INHALATION SCH ×2 (09:04→12:00)
[2019-06-12] MEDS ORDERED: tiZANidine 4 MG TAB PO SCH (11:30)
[2019-06-12 11:33] LABS: Glucose,Whole Blood 114 mg/dL (75-99)
--- NOTE | 2019-06-12 12:41 | P.DS ---
Providers Date of admission: 06/11/19 12:26 Expected date of discharge: 06/12/19 Attending physician: Keith Bowres Consults: 06/08/19 13:43 Consult Physician Routine Consulting Provider: Tory Kinsey Consult Reason/Comments: pneumonia, bronchitis, reported hemoptysis Do you want consulting provider notified?: Yes Primary care physician: Keith Bowers - Discharge Diagnosis(es) (1) Pneumonia Current Visit: Yes Status: Acute (2) Acute exacerbation of chronic obstructive airways disease Current Visit: No Status: Acute (3) Neurogenic bladder Current Visit: Yes Status: Acute (4) Suprapubic catheter Current Visit: Yes Status: Acute (5) Failure of outpatient treatment Current Visit: No Status: Acute (6) Multiple sclerosis Current Visit: No Status: Chronic (7) Right shoulder pain Current Visit: Yes Status: Acute (8) Hyperlipidemia Current Visit: Yes Status: Chronic (9) CVA, old, hemiparesis Current Visit: Yes Status: Chronic (10) Anemia in chronic illness Current Visit: Yes Status: Chronic Hospital Course: Subjective This is a 54-year-old female with history of multiple sclerosis presented to the ER with confusion, lethargy, cough and multiple other medical issues. Patient recently had seen PCP within the last week for aggravating cough, vague historian. ER had reported to PCP ,patient was very confused/disoriented on admission, toxicology screen reports opiates and benzos. Verbalizes she only takes her Tylenol #4 at nighttime. Patient states she woke up here and didn't realize where she was at. Apparently there is a OP chest x-ray reporting possible pneumonia. ER records currently available given downtime of computers last night. Clinically patient presents with possible bronchitis with right bibasilar pneumonia-right basilar crackles with Limited air entry. Reports hemoptysis and fevers at home, neither witnessed here. Currently Reports productive cough with vo sputum. Afebrile, taking O2 sats in the 90s on room air, WBC 11.3, hemoglobin 10.2, INR 1.2. Sodium 139, BUN 11, creatinine 0.95. Urine reporting large leukocytes, 60 WBCs-asymptomatic, suspect contamination, in a patient with a suprapubic catheter. Alk phos mildly elevated ,136. Influenza A and B. denies chest pain, palpitations. Denies lightheadedness dizziness or focal deficits. Reports worsening cough, congestion for about a week with increased generalized weakness. Denies nausea vomiting or diarrhea. 06/09/2019: Overnight patient's oxygen saturation was in the upper 90s on room air. She is complaining of ongoing cough. Her ER chest x-ray was unavailable for review. She is on her home medications. She is been placed on Rocephin and azithromycin for antibiotic coverage and Solu-Medrol for cough and inflammation. She denies any severe chest pains, pressures, or shortness of breath at this time. She indicates her cough is somewhat better. She has a suprapubic catheter due to her multiple sclerosis. 06/10/2019: Patient continues complaining of coughing. She said it kept her up all night. Chest x-ray showed a lingular pneumonia. Pulmonology consultation was reviewed. She remains on Rocephin and azithromycin, along with Solu-Medrol. She denies any significant chest pains pressures or shortness of breath. Oxygen saturations remained normal on room air. She denies any nausea or vomiting. She has a suprapubic catheter due to her MS and neurogenic bladder. She is also complaining of right shoulder pain. This is been an ongoing problem for her as she had osteomyelitis in the humeral head at one time. She is scheduled see orthopedics outpatient for this. 06/11/2019: Overall patient is doing better. She complains of mostly cough at night. She is taking Robitussin and/or Tessalon Perles needed. She remains on antibiotics Rocephin and Zithromax. She remains on Solu-Medrol. Chest x-ray shows persistent infiltration compared to the earlier x-ray per pulmonology. I discussed the case with them personally. The urine cultures not done, so another one will be obtained for culture. She denies any current chest pains or pressures. No shortness of breath at rest. Tolerating her diet. 06/12/2019: Patient continues to improve. Her cough is improved. She is been on Rocephin and azithromycin. Remains on Solu-Medrol. He is doing quite a bit better we discharged home with home health care and follow-up in the office. Plan - Discharge Summary New Discharge Prescriptions: New Cefdinir [Omnicef] 300 mg PO Q12HR #14 capsule Temazepam [Restoril] 15 mg PO HS cap guaiFENesin-DM 100-10MG/5ML [Robitussin DM] 10 ml PO Q6HR cup Acetaminophen Tab [Tylenol] 650 mg PO Q6HR PRN tab PRN Reason: Fever And/ Or Pain Acetaminophen-Codeine 300-30mg [Tylenol w/codeine #3] 1 each PO Q8HR PRN tab PRN Reason: Pain tiZANidine [Zanaflex] 4 mg PO BID tab predniSONE 10 mg PO DAILY #30 tab Continue Propranolol HCl [Inderal LA] 160 mg PO HS@1999 Topiramate [Topamax] 400 mg PO HS@1999 Levothyroxine Sodium [Synthroid] 100 mcg PO DAILY@0800 Potassium Chloride ER [K-Dur 10] 10 meq PO DAILY@0800 Omeprazole [PriLOSEC] 40 mg PO DAILY@0800 tiZANidine HCL [Zanaflex] 4 mg PO BID Rivaroxaban [Xarelto] 20 mg PO DAILY@0800 Magnesium Oxide [Mag-Ox] 250 mg PO DAILY Acetaminophen [Tylenol] 650 mg PO Q6H PRN PRN Reason: Pain Propylene Glycol/Peg 400 [Systane Ultra 0.4-0.3% Eye Drp] 1 drop BOTH EYES BID@ Aspirin EC [Ecotrin Low Dose] 81 mg PO DAILY Lacosamide [Vimpat] 150 mg PO BID Acetaminophen with Codeine [Tylenol with Codeine #4 Tablet] 1 tab PO Q6H PRN PRN Reason: Pain Oxybutynin Chloride [Oxybutynin Chloride ER] 15 mg PO BID Temazepam [Restoril] 30 mg PO HS Discharge Medication List Propranolol HCl [Inderal LA] 160 mg PO HS@199903/07/14 [History] Topiramate [Topamax] 400 mg PO HS@199903/07/14 [History] Levothyroxine Sodium [Synthroid] 100 mcg PO DAILY@0807/02/16 [History] Potassium Chloride ER [K-Dur 10] 10 meq PO DAILY@0800 06/13/17 [History] Omeprazole [PriLOSEC] 40 mg PO DAILY@0800 07/07/17 [History] tiZANidine HCL [Zanaflex] 4 mg PO BID 07/07/17 [History] Rivaroxaban [Xarelto] 20 mg PO DAILY@0800 02/03/18 [History] Magnesium Oxide [Mag-Ox] 250 mg PO DAILY 04/02/18 [History] Acetaminophen [Tylenol] 650 mg PO Q6H PRN 08/14/18 [History] Propylene Glycol/Peg 400 [Systane Ultra 0.4-0.3% Eye Drp] 1 drop BOTH EYES BID@0800,2000 08/14/18 [History] Aspirin EC [Ecotrin Low Dose] 81 mg PO DAILY 11/27/18 [History] Lacosamide [Vimpat] 150 mg PO BID 11/28/18 [History] Acetaminophen with Codeine [Tylenol with Codeine #4 Tablet] 1 tab PO Q6H PRN 01/20/19 [History] Oxybutynin Chloride [Oxybutynin Chloride ER] 15 mg PO BID 06/08/19 [History] Temazepam [Restoril] 30 mg PO HS 06/08/19 [History] Acetaminophen Tab [Tylenol] 650 mg PO Q6HR PRN tab 06/12/19 [Rx] Acetaminophen-Codeine 300-30mg [Tylenol w/codeine #3] 1 each PO Q8HR PRN tab 06/12/19 [Rx] Cefdinir [Omnicef] 300 mg PO Q12HR #14 capsule 06/12/19 [Rx] Temazepam [Restoril] 15 mg PO HS cap 06/12/19 [Rx] guaiFENesin-DM 100-10MG/5ML [Robitussin DM] 10 ml PO Q6HR cup 06/12/19 [Rx] predniSONE 10 mg PO DAILY #30 tab 06/12/19 [Rx] tiZANidine [Zanaflex] 4 mg PO BID tab 06/12/19 [Rx] Follow up Appointment(s)/Referral([facility]): [facility] - Keith Bowers MD [Primary Care Provider] - 1 Week Discharge Disposition: HOME WITH HOME HEALTH SERVICES
[2019-06-12 14:20] VITALS: BP 128/74; PULSE 51; RESP 16; TEMP 97.1
--- NOTE | 2019-06-12 14:30 | P.PN ---
Subjective Progress Note Date: 06/12/19 On 06/12/2019 patient is feeling well. No significant shortness of breath. Afebrile. Hemodynamically stable. Got treated with a combination of Rocephin and Zithromax and management of being made to discharge this patient home on Omnicef. Objective - Vital Signs Vital signs: Vital Signs Temp 97.1 F L 06/12/19 14:19 Pulse 51 L 06/12/19 14:19 Resp 16 06/12/19 14:19 BP 128/74 06/12/19 14:19 Pulse Ox 94 L 06/12/19 14:19 Intake & Output 06/11/19 06/12/19 06/12/19 18:59 06:59 18:59 Intake Total 750 1500 810 Output Total 1751 2200 Balance -1001 -700 810 Intake: IV 210 210 Sodium Chloride 0.9% 1, 160 160 000 ml @ 20 mls/hr IV . Q24H RC Rx#:[id number] cefTRIAXone 1 gm In 50 50 Sodium Chloride 0.9% 50 ml @ 100 mls/hr IVPB Q24HR RC Rx#:[id number] Oral 540 1500 600 Output: Urine 1750 2200 Stool 1 Other: Voiding Method Indwelling Catheter Indwelling Catheter Indwelling Catheter # Voids 0 # Bowel Movements 0 - Exam GENERAL: Fatigued, sitting up in bed, no acute distress, the patient is on room air oxygen and she denies having any respiratory distress and she is able to speak of. This is without any major difficulties. HEAD: Atraumatic, normocephalic. EYES: Pupils equal round and reactive to light, extraocular movements intact, sclera anicteric, conjunctiva are normal. ENT:nares patent, oropharynx clear without exudates. Oral mucous membranes, dry. NECK: Normal range of motion, supple without lymphadenopathy or JVD, no thyromegaly LUNGS: Poor air entry, left basilar crackles. No rhonchi, no wheezes. Overall breath sounds are diminished bilaterally. HEART: Regular rate and rhythm without murmurs, rubs or gallops.S1S2 Normal ABDOMEN: Soft, minimally tender above her suprapubic catheter normoactive bowel sounds. No guarding, no rebound. No masses appreciated. Her catheter is clean dry and intact with no periwound erythema ecchymosis or edema noted. EXTREMITIES: Examination of the extremities revealed easily palpable radial, femoral and pedal pulses. There was no cyanosis, clubbing or edema. NEUROLOGICAL: Cranial nerves II through XII grossly intact. Normal speech, gait is untestable as she is in bed. 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 PSYCH: Normal mood, normal affect. SKIN: Warm, Dry, normal turgor, no rashes or lesions noted. - Labs CBC & Chem 7: 06/11/19 08:38 06/11/19 08:38 Labs: Abnormal Lab Results - Last 24 Hours (Table) 06/11/19 06/11/19 06/12/19 Range/Units 17:04 20:27 07:11 POC Glucose (mg/dL) 129 H 139 H 126 H (75-99) mg/dL 06/12/19 Range/Units 11:31 POC Glucose (mg/dL) 114 H (75-99) mg/dL Microbiology - Last 24 Hours (Table) 06/11/19 12:30 Urine Culture - Preliminary Urine,Clean Catch Assessment and Plan Plan: 1 altered mentation , recovered and the mental status normalized. 2 left lung pneumonia/lingular, improving on today's chest x-ray and she is on a combination of Rocephin and Zithromax and she is taking Robitussin for cough 3 suspect a recurrent UTI as the patient is of multiple infections with various bacteria including VRE, Pseudomonas, Citrobacter and staph aureus, awaiting follow-up urine cultures 4 multiple sclerosis with significant neurologic impairment and motor deficits and the patient is currently wheelchair-bound 5 history of CVA with left lower extremity weakness 6 history of suprapubic catheter for neurogenic bladder with subsequent frequent urinary tract infections 7 hyperlipidemia 8 seizure disorder 9 history of DVT of the left lower extremity back in December 2017 10 peripheral vascular disease 11 migraines 12 history of cervical cancer back in 1997 13 history of breast cancer in 2003. Lumpectomy 14 previous history of humeral head fracture 15 insomnia Plan 4. Discharge the patient home on Omnicef. Urine cultures need to be checked on outpatient basis antibiotic medication can be done accordingly. Pulmonary status is stable. No further difficulties. Agree on discharging this patient home today.
--- NOTE | 2019-06-18 10:27 | CDI ---
Documentation Clarification Form Date: 06/18/19 From: Sandra Calix Phone: If you have a question about this query, please contact Minnie Leal, [facility] at [phone] between 8am and 5pm. Admit Date: 06/11/19 Discharge Date: 06/12/19 Patient Name: Enid Oates Visit Number: [id number] ATTENTION: The Clinical Documentation Specialists (CDI) and [facility] Coding Staff appreciate your assistance in clarifying documentation. Please respond to the clarification below the line at the bottom and electronically sign. The CDI & [facility] Coding staff will review the response and follow-up if needed. Please note: Queries are made part of the Legal Health Record. If you have any questions, please contact the author of this message via ITS. Dear Dr. Keith Bowers, The diagnosis of suspected UTI was documented in the Dr Kinsey's consult and PNs, but is not noted in subsequent documentation. History/Risk Factors: hx recurrent UTI's, neurogenic bladder with supracatheter Clinical Indicators: Urine-cloudy, Nitrite-positive, leukocyte esterase-large, WBC-60, WBC clumps-many Urine culture- 50,000-100,00 of Pseudomonas aeruginosa Treatment: IV Zithromax, IV Rocephin, dc'd on Omnicef Please clarify if the patient had a UTI and the cause: UTI due to Pseudomonas UTI due to suprapubic catheter and Pseudomonas UTI Ruled out Other, please specify Clinically unable to determine MTDD
--- NOTE | 2019-06-24 07:54 | CDI ---
Documentation Clarification Form Date: 06/18/19 From: Sandra Calix Phone: If you have a question about this query, please contact Minnie Leal, [employer] at [phone] between 8am and 5pm. Admit Date: 06/11/19 Discharge Date: 06/12/19 Patient Name: Enid Oates Visit Number: [id number] ATTENTION: The Clinical Documentation Specialists (CDI) and [facility] Coding Staff appreciate your assistance in clarifying documentation. Please respond to the clarification below the line at the bottom and electronically sign. The CDI & [facility] Coding staff will review the response and follow-up if needed. Please note: Queries are made part of the Legal Health Record. If you have any questions, please contact the author of this message via ITS. Dear Dr. Keith Bowers, The diagnosis of suspected UTI was documented in the Dr Kinsey's consult and PNs, but is not noted in subsequent documentation. History/Risk Factors: hx recurrent UTI's, neurogenic bladder with supracatheter Clinical Indicators: Urine-cloudy, Nitrite-positive, leukocyte esterase-large, WBC-60, WBC clumps-many Urine culture- 50,000-100,00 of Pseudomonas aeruginosa Treatment: IV Zithromax, IV Rocephin, dc'd on Omnicef Please clarify if the patient had a UTI and the cause: UTI due to Pseudomonas UTI due to suprapubic catheter and Pseudomonas ---> UTI Ruled out Other, please specify Clinically unable to determine MTDD
== END 2019-06-12 15:50 | disposition home health service (06) | DRG 190 ==
LOC: EC 23:36 → 4MS4W 06-08 06:40 → OBSVTOIN 06-11 12:26
PROVIDERS: ADMIT Family Medicine; ATTEND Family Medicine
PROC: 3E02340 Introduction of Influenza Vaccine into Muscle, Percutaneous Approach (ICD-10-PCS; principal; 2019-06-08)
PROC: 3E0234Z Introduction of Serum, Toxoid and Vaccine into Muscle, Percutaneous Approach (ICD-10-PCS; 2019-06-08)
DX: J44.0 Chronic obstructive pulmonary disease with (acute) lower respiratory infection (principal); J18.9 Pneumonia, unspecified organism; R04.2 Hemoptysis; I69.354 Hemiplegia and hemiparesis following cerebral infarction affecting left non-dominant side; I42.9 Cardiomyopathy, unspecified; J44.1 Chronic obstructive pulmonary disease with (acute) exacerbation; G35 Multiple sclerosis; N31.9 Neuromuscular dysfunction of bladder, unspecified; J20.9 Acute bronchitis, unspecified; E86.0 Dehydration; Z23 Encounter for immunization; D63.8 Anemia in other chronic diseases classified elsewhere; E78.5 Hyperlipidemia, unspecified; I25.2 Old myocardial infarction; G40.909 Epilepsy, unspecified, not intractable, without status epilepticus; R40.2143 Coma scale, eyes open, spontaneous, at hospital admission; R40.2363 Coma scale, best motor response, obeys commands, at hospital admission; R40.2253 Coma scale, best verbal response, oriented, at hospital admission; G43.909 Migraine, unspecified, not intractable, without status migrainosus; E03.9 Hypothyroidism, unspecified; G89.29 Other chronic pain; M54.5 Low back pain; M25.511 Pain in right shoulder; G47.00 Insomnia, unspecified; I73.9 Peripheral vascular disease, unspecified; Z79.82 Long term (current) use of aspirin; Z79.01 Long term (current) use of anticoagulants; Z79.890 Hormone replacement therapy; Z79.899 Other long term (current) drug therapy; Z87.440 Personal history of urinary (tract) infections; Z99.3 Dependence on wheelchair; Z86.718 Personal history of other venous thrombosis and embolism; Z87.74 Personal history of (corrected) congenital malformations of heart and circulatory system; Z85.3 Personal history of malignant neoplasm of breast; Z90.710 Acquired absence of both cervix and uterus; Z85.41 Personal history of malignant neoplasm of cervix uteri; Z86.14 Personal history of Methicillin resistant Staphylococcus aureus infection; Z90.11 Acquired absence of right breast and nipple; Z90.49 Acquired absence of other specified parts of digestive tract; Z98.890 Other specified postprocedural states; Z87.891 Personal history of nicotine dependence; Z87.820 Personal history of traumatic brain injury; Z86.69 Personal history of other diseases of the nervous system and sense organs; Z87.39 Personal history of other diseases of the musculoskeletal system and connective tissue; Z87.81 Personal history of (healed) traumatic fracture; Z88.7 Allergy status to serum and vaccine; Z88.2 Allergy status to sulfonamides; Z88.8 Allergy status to other drugs, medicaments and biological substances; Z83.3 Family history of diabetes mellitus; Z82.49 Family history of ischemic heart disease and other diseases of the circulatory system; Z82.61 Family history of arthritis
CPT/HCPCS: 71045; 71046; 80048; 80053; 80306; 81001; 83605; 83735; 85025; 85610; 85730; 87077; 87086; 87186; 87502; 90686; 90732; 94640; 96361; 96365; 96375; 99285

== ENCOUNTER → 2019-08-06 | Outpatient (CLI) | payer MEDICARE, OTHER ==
--- NOTE | 2019-08-06 11:03 | CT ---
EXAMINATION TYPE: CT humerus LT wo con DATE OF EXAM: 08/06/2019 COMPARISON: 05/10/2019 HISTORY: osteomyelitis of Lt humerus CT DLP: 667.3 mGycm Automated exposure control for dose reduction was used. TECHNIQUE: Axial images 3 mm thick sections. Reconstructed images in the coronal and sagittal planes. Three-D reconstructed images are performed by the technologist on a separate computer. FINDINGS: Lucency at the humeral head is again evident. On the current examination there is some collapse of th e superior humeral head compatible with fracture. This is an interval change. The lucency within the superior humeral head appears similar to previous examination. There is likely some thinning of the c ortical margin superiorly. No extension into the metadiaphysis or diaphysis of the humeral shaft is e vident. There is narrowing of the glenohumeral joint space compatible with osteoarthritic degenerativ e change.. IMPRESSION: 1. LUCENCY WITHIN THE HUMERAL HEAD CAN BE COMPATIBLE WITH THE PATIENT'S REPORTED OSTEOMYELITIS. 2. THERE IS A NEW SUPERIOR HUMERAL HEAD FRACTURE WITH MILD COMPRESSION OF THE FRACTURE FRAGMENT INTO THE HUMERAL HEAD LUCENCY.
--- NOTE | 2019-08-06 14:51 | NM ---
EXAMINATION TYPE: NM bone 3 phase DATE OF EXAM: 08/06/2019 COMPARISON: 04/14/2018, CT left humerus same date HISTORY: Osteomyelitis Triple phase bone scintigraphy was performed following the injection of 23.7 mCi Tc 99m MDP. Immedia te images and 3 hours post injection images acquired. FINDINGS: Static images: There is increased radiotracer accumulation within the proximal left humeral head. One specifically evaluated, this appears to extend into the proximal metaphysis especially medially whic h is slightly away from the patient's known fracture along the superior margin of the humeral head. Blood pool: There is mild increased uptake within the left humeral head region on blood pool. Blood flow: Blood flow imaging is limited. However, some subtle asymmetry is possible at the left hum eral head. IMPRESSION: 1. Given the findings on CT examination, three-phase bone scan can be compatible with the patient's f racture at the humeral head. Given previous report of osteomyelitis, findings can also be related to osteomyelitis and accurate differentiation from the known fracture is difficult. However, static imag es may suggest osteomyelitis noting some uptake away from the expected superior margin of the humeral head at the fracture site and greater radiotracer within the more proximal metaphyseal portion of th e humeral head.
== END | disposition home or self-care (01) ==
LOC: RADNMMAIN 07:29
PROVIDERS: ATTEND Orthopaedic Surgery
DX: S42.292A Other displaced fracture of upper end of left humerus, initial encounter for closed fracture (principal); M86.8X2 Other osteomyelitis, upper arm
CPT/HCPCS: 73200; 78315; A9503

== ENCOUNTER 2019-09-12 10:29 | Emergency (ER) | payer MEDICARE, OTHER ==
--- NOTE | 2019-09-12 11:50 | ED ---
Extremity Problem HPI - General Chief complaint: Extremity Problem,Nontraumatic Stated complaint: Right Hand Pain and Swelling Time Seen by Provider: 09/12/19 10:54 Source: patient Mode of arrival: wheelchair Limitations: no limitations - History of Present Illness Initial comments: Patient is a 54-year-old female, with multiple comorbidities including MS, osteomyelitis of the left shoulder, presenting to the emergency Department with complaints of mild swelling and pain in her right hand. She denies any injuries or trauma. She does admit to recently have an blood drawn from her right hand. She denies fever, chills, nausea, vomiting. She has no other complaints at this time. Upon arrival to the ER vitals are stable. - Related Data Home Medications Medication Instructions Recorded Confirmed Propranolol HCl [Inderal LA] 160 mg PO HS@199903/07/14 06/08/19 Topiramate [Topamax] 400 mg PO HS@199903/07/14 06/08/19 Levothyroxine Sodium [Synthroid] 100 mcg PO DAILY@0807/02/16 06/08/19 Potassium Chloride ER [K-Dur 10] 10 meq PO DAILY@0800 06/13/17 06/08/19 Omeprazole [PriLOSEC] 40 mg PO DAILY@0807/07/17 06/08/19 tiZANidine HCL [Zanaflex] 4 mg PO BID 07/07/17 06/08/19 Rivaroxaban [Xarelto] 20 mg PO DAILY@0800 02/03/18 06/08/19 Magnesium Oxide [Mag-Ox] 250 mg PO DAILY 04/02/18 06/08/19 Acetaminophen [Tylenol] 650 mg PO Q6H PRN 08/14/18 06/08/19 Propylene Glycol/Peg 400 [Systane 1 drop BOTH EYES BID@08,199908/14/18 06/08/19 Ultra 0.4-0.3% Eye Drp] Aspirin EC [Ecotrin Low Dose] 81 mg PO DAILY 11/27/18 06/08/19 Lacosamide [Vimpat] 150 mg PO BID 11/28/18 06/08/19 Acetaminophen with Codeine 1 tab PO Q6H PRN 01/20/19 06/08/19 [Tylenol with Codeine #4 Tablet] Oxybutynin Chloride [Oxybutynin 15 mg PO BID 06/08/19 06/08/19 Chloride ER] Temazepam [Restoril] 30 mg PO HS 06/08/19 06/08/19 Previous Rx's Medication Instructions Recorded Acetaminophen Tab [Tylenol] 650 mg PO Q6HR PRN tab 06/12/19 Acetaminophen-Codeine 300-30mg 1 each PO Q8HR PRN tab 06/12/19 [Tylenol w/codeine #3] Cefdinir [Omnicef] 300 mg PO Q12HR #14 capsule 06/12/19 Temazepam [Restoril] 15 mg PO HS cap 06/12/19 guaiFENesin-DM 100-10MG/5ML 10 ml PO Q6HR cup 06/12/19 [Robitussin DM] predniSONE 10 mg PO DAILY #30 tab 06/12/19 tiZANidine [Zanaflex] 4 mg PO BID tab 06/12/19 Allergies Allergy/AdvReac Type Severity Reaction Status Date / Time guaifenesin [From Entex LA] Allergy Anaphylaxis Verified 09/12/19 10:31 phenylephrine HCl Allergy Anaphylaxis Verified 09/12/19 10:31 [From Entex LA] phenylpropanolamine HCl Allergy Anaphylaxis Verified 09/12/19 10:31 [From Entex LA] Sulfa (Sulfonamide Allergy Anaphylaxis Verified 09/12/19 10:31 Antibiotics) tuberculin, purified protein Allergy Anaphylaxis Verified 09/12/19 10:31 deriva [Tuberculin,Purif.Prot.Deriv.] pseudoephedrine HCl AdvReac Swelling Verified 09/12/19 10:31 [From Mucinex D] Review of Systems ROS Statement: Those systems with pertinent positive or pertinent negative responses have been documented in the HPI. ROS Other: All systems not noted in ROS Statement are negative. Past Medical History Past Medical History: Cancer, COPD, CVA/TIA, Deep Vein Thrombosis (DVT), Hyperlipidemia, Myocardial Infarction (CT), Neurologic Disorder, Seizure Disorder, Thyroid Disorder, Vascular Disorder Additional Past Medical History / Comment(s): Multiple sclerosis, CVA in 205 with weakness L arm and paralysis L leg, wheelchair bound, suprapubic catheter- last changed 05/31/19, R breast cancer with lumpectomy, cervical cancer with surgery/chemo, DVT L leg, last seizure 08/2018, PVD, chronic low back pain, DDD, migraines, concussion in 2014, L proximal humerus/shoulder osteomyelitis, current L shoulder lesion-to have follow up, past R leg cellulitis, pt was born with heart malformation/defect, hypothyroid. Last Myocardial Infarction Date:: 2004 History of Any Multi-Drug Resistant Organisms: MRSA Date of last positivie culture/infection: 06/14/15 MDRO Source:: sputum Past Surgical History: Back Surgery, Bladder Surgery, Breast Surgery, Cholecystectomy, Heart Catheterization, Hysterectomy, Orthopedic Surgery, Tonsillectomy Additional Past Surgical History / Comment(s): Open subcutaneous skin/scar tissue release L arm, L upper arm lesion removed, sinus surgery FOR DEVIATED SEPTUM; Rt breast lumpectomy; Rt knee surgery x 4 ARTHROSCOPIES AND ACL RECONSTRUCTION; LAPAROSCOPY, EXC ADHESIONS. Suprapubic Cath.,07-28-17 egd w/ stomach bx-neg, back pain injections, spinal stimulator, PICCs, lt subclavian port a cath implanted on 01-13-18 pt stated "it's never been accessed". Past Anesthesia/Blood Transfusion Reactions: No Reported Reaction Additional Past Anesthesia/Blood Transfusion Reaction / Comment(s): CLAUSTROPHOBIA Past Psychological History: No Psychological Hx Reported Smoking Status: Former smoker Past Alcohol Use History: None Reported Past Drug Use History: None Reported - Past Family History Father Family Medical History: Diabetes Mellitus, Myocardial Infarction (CT), Osteoarthritis (OA) Additional Family Medical History / Comment(s): Father fell and suffered brain edema and . He had CABG. He at the age of 77yrs Mother Family Medical History: Myocardial Infarction (CT) Additional Family Medical History / Comment(s): Mother of a CT at the age of 70 General Exam - General Exam Comments Initial Comments: GENERAL: Well-appearing, well-nourished and in no acute distress. HEAD: Atraumatic, normocephalic. EYES: Pupils equal round and reactive to light, extraocular movements intact, sclera anicteric, conjunctiva are normal. ENT: TMs normal, nares patent, oropharynx clear without exudates. Moist mucous membranes. NECK: Normal range of motion, supple without lymphadenopathy or JVD. LUNGS: Breath sounds clear to auscultation bilaterally and equal. No wheezes rales or rhonchi. HEART: Regular rate and rhythm without murmurs, rubs or gallops. ABDOMEN: Soft, nontender, normoactive bowel sounds. No guarding, no rebound. No masses appreciated. : Deferred EXTREMITIES: Patient has full range of motion of her right elbow, right wrist, right hand. There is some very mild swelling noted and dorsal aspect of the right hand. Mild pain with palpation of the tendons just proximal to the thumb. No snuffbox tenderness. Neurovascular intact. Sensation is equal bilateral. No pitting or edema. No clubbing or cyanosis. NEUROLOGICAL: Normal speech, normal gait. PSYCH: Normal mood, normal affect. SKIN: Warm, Dry, normal turgor, no rashes or lesions noted. Limitations: no limitations Course Vital Signs 09/12/19 09/12/19 10:41 12:18 Temperature 98.2 F 98 F Pulse Rate 61 89 Respiratory 18 16 Rate Blood Pressure 123/79 135/78 O2 Sat by Pulse 100 99 Oximetry Medical Decision Making - Medical Decision Making Patient is a 54-year-old female with multiple comorbidities including MS, osteomyelitis of the left shoulder presenting with right hand pain and swelling 2 days. She denies any injuries or falls. She did have recent blood work done on the right hand. X-rays reveal no acute fractures dislocations. Discussed with patient this is most likely discomfort noted from the recent blood draw or any contusion. This does not appear to be infectious in nature. Patient will use ice to the area as well as elevation. She'll follow up with her PCP if symptoms do not improve. She is in agreement with this plan of care. She is stable for discharge. Return parameters were discussed with the patient she verbalized understanding. Case discussed with Dr. Duran. Disposition Clinical Impression: Swelling of right hand Disposition: HOME SELF-CARE Condition: Stable Instructions (If sedation given, give patient instructions): Arthralgia (ED) Additional Instructions: Please return to the Emergency Department if symptoms worsen or any other concerns. Use ice and elevation to the area. Follow-up with PCP. Is patient prescribed a controlled substance at d/c from ED?: No Referrals: Keith Bowers MD [Primary Care Provider] - 1-2 days
--- NOTE | 2019-09-12 11:55 | XR ---
EXAMINATION TYPE: XR hand complete RT , 3 VIEWS DATE OF EXAM ORDERED: 09/12/2019 HISTORY: pain, swelling. COMPARISON: None. FINDINGS: No fracture, dislocation or other acute osseous lesion is seen. IMPRESSION: NO ACUTE OSSEOUS LESION.
[2019-09-12 12:19] VITALS: BP 135/78; PULSE 89; RESP 16; TEMP 98
== END 2019-09-12 12:17 | disposition home or self-care (01) ==
LOC: EC 10:29
DX: M79.89 Other specified soft tissue disorders (principal); M79.641 Pain in right hand; G35 Multiple sclerosis; I25.2 Old myocardial infarction; G40.909 Epilepsy, unspecified, not intractable, without status epilepticus; E03.9 Hypothyroidism, unspecified; I73.9 Peripheral vascular disease, unspecified; G89.29 Other chronic pain; M86.8X1 Other osteomyelitis, shoulder; Q24.9 Congenital malformation of heart, unspecified; Z87.891 Personal history of nicotine dependence; Z88.2 Allergy status to sulfonamides; Z88.7 Allergy status to serum and vaccine; Z88.8 Allergy status to other drugs, medicaments and biological substances; Z79.01 Long term (current) use of anticoagulants; Z79.82 Long term (current) use of aspirin; Z79.890 Hormone replacement therapy; Z79.899 Other long term (current) drug therapy; Z86.73 Personal history of transient ischemic attack (TIA), and cerebral infarction without residual deficits; Z86.69 Personal history of other diseases of the nervous system and sense organs; Z74.01 Bed confinement status; Z85.3 Personal history of malignant neoplasm of breast; Z85.41 Personal history of malignant neoplasm of cervix uteri; Z92.21 Personal history of antineoplastic chemotherapy; Z90.710 Acquired absence of both cervix and uterus; Z95.818 Presence of other cardiac implants and grafts; Z98.890 Other specified postprocedural states; Z82.61 Family history of arthritis
CPT/HCPCS: 99283

== ENCOUNTER 2019-11-09 10:23 | Emergency (ER) | payer MEDICARE, OTHER ==
[2019-11-09 10:28] VITALS: RESP 18; TEMP 98.4
--- NOTE | 2019-11-09 11:00 | XR ---
EXAMINATION TYPE: XR chest 2V DATE OF EXAM: 11/09/2019 COMPARISON: 06/11/2019 HISTORY: 54-year-old female with chest pain TECHNIQUE: AP and lateral views FINDINGS: Cement arthroplasty of the left humeral head. Spinal stimulator array centered along the lower thorac ic spinal canal. Left anterior chest wall injection port with subclavian access in tip at the cavoatr ial junction. Heart normal size. Mild patchy left basilar opacity remains. No pleural effusion. IMPRESSION: Mild patchy atelectasis versus infiltrate at the left base.
[2019-11-09 11:04] LABS: Anisocytosis Slight; HCT 28.5 % (34.0-46.0); Hypochromasia Marked; INR 1.2 (<1.2); MCH 23.9 pg (25.0-35.0); MCHC 28.2 g/dL (31.0-37.0); MCV 85.1 fL (80.0-100.0); Partial Thromboplastin Time 28.9 sec (22.0-30.0); Platelet Count 213 k/uL (150-450); Prothrombin Time 11.7 sec (9.0-12.0); RBC 3.35 m/uL (3.80-5.40); RDW 18.3 % (11.5-15.5)
[2019-11-09 11:12] LABS: ALT 12 U/L (4-34); AST 28 U/L (14-36); African American GFR (CKD) >90 (>60 ml/min/1.73 sqM); Albumin 3.4 g/dL (3.5-5.0); Alkaline Phosphatase 88 U/L (38-126); Anion Gap 8 mmol/L; Blood Urea Nitrogen 18 mg/dL (7-17); Calcium 8.1 mg/dL (8.4-10.2); Carbon Dioxide 16 mmol/L (22-30); Chloride 116 mmol/L (98-107); Glucose 83 mg/dL (74-99); Magnesium 1.9 mg/dL (1.6-2.3); Non-African American GFR(CKD) 90 (>60 ml/min/1.73 sqM); Potassium 3.9 mmol/L (3.5-5.1); Sodium 140 mmol/L (137-145); Total Bilirubin 0.1 mg/dL (0.2-1.3); Total Protein 6.5 g/dL (6.3-8.2)
--- NOTE | 2019-11-09 11:16 | ED ---
General Adult HPI - General Chief complaint: Chest Pain Stated complaint: Chest Pain Time Seen by Provider: 11/09/19 10:25 Source: patient, EMS, RN notes reviewed, old records reviewed Mode of arrival: EMS Limitations: no limitations - History of Present Illness Initial comments: 54-year-old female history of MS previous ME presenting for evaluation of chest pain. Pain is been present for the past 4 days. Patient had disclose this information to her home care nurse who called the primary care physician who recommended the patient presented emergency department for evaluation. The patient was reluctant to come. She states she tripped did this pain to her MS and states she does have some chronic intermittent pain as well as dyspnea. She denies fever. She's had a cough which is productive of green sputum. She states she did have 2 episodes of nausea and vomiting. No fever. No abdominal pain. - Related Data Home Medications Medication Instructions Recorded Confirmed Propranolol HCl [Inderal LA] 160 mg PO HS@199903/07/14 06/08/19 Topiramate [Topamax] 400 mg PO HS@199903/07/14 06/08/19 Levothyroxine Sodium [Synthroid] 100 mcg PO DAILY@0800 07/02/16 06/08/19 Potassium Chloride ER [K-Dur 10] 10 meq PO DAILY@0800 06/13/17 06/08/19 Omeprazole [PriLOSEC] 40 mg PO DAILY@0800 07/07/17 06/08/19 tiZANidine HCL [Zanaflex] 4 mg PO BID 07/07/17 06/08/19 Rivaroxaban [Xarelto] 20 mg PO DAILY@0800 02/03/18 06/08/19 Magnesium Oxide [Mag-Ox] 250 mg PO DAILY 04/02/18 06/08/19 Acetaminophen [Tylenol] 650 mg PO Q6H PRN 08/14/18 06/08/19 Propylene Glycol/Peg 400 [Systane 1 drop BOTH EYES BID@799,199908/14/18 06/08/19 Ultra 0.4-0.3% Eye Drp] Aspirin EC [Ecotrin Low Dose] 81 mg PO DAILY 11/27/18 06/08/19 Lacosamide [Vimpat] 150 mg PO BID 11/28/18 06/08/19 Acetaminophen with Codeine 1 tab PO Q6H PRN 01/20/19 06/08/19 [Tylenol with Codeine #4 Tablet] Oxybutynin Chloride [Oxybutynin 15 mg PO BID 06/08/19 06/08/19 Chloride ER] Temazepam [Restoril] 30 mg PO HS 06/08/19 06/08/19 Previous Rx's Medication Instructions Recorded Acetaminophen Tab [Tylenol] 650 mg PO Q6HR PRN tab 06/12/19 Acetaminophen-Codeine 300-30mg 1 each PO Q8HR PRN tab 06/12/19 [Tylenol w/codeine #3] Cefdinir [Omnicef] 300 mg PO Q12HR #14 capsule 06/12/19 Temazepam [Restoril] 15 mg PO HS cap 06/12/19 guaiFENesin-DM 100-10MG/5ML 10 ml PO Q6HR cup 06/12/19 [Robitussin DM] predniSONE 10 mg PO DAILY #30 tab 06/12/19 tiZANidine [Zanaflex] 4 mg PO BID tab 06/12/19 Allergies Allergy/AdvReac Type Severity Reaction Status Date / Time guaifenesin [From Entex LA] Allergy Anaphylaxis Verified 09/12/19 10:31 phenylephrine HCl Allergy Anaphylaxis Verified 09/12/19 10:31 [From Entex LA] phenylpropanolamine HCl Allergy Anaphylaxis Verified 09/12/19 10:31 [From Entex LA] Sulfa (Sulfonamide Allergy Anaphylaxis Verified 09/12/19 10:31 Antibiotics) tuberculin, purified protein Allergy Anaphylaxis Verified 09/12/19 10:31 deriva [Tuberculin,Purif.Prot.Deriv.] pseudoephedrine HCl AdvReac Swelling Verified 09/12/19 10:31 [From Mucinex D] Review of Systems ROS Statement: Those systems with pertinent positive or pertinent negative responses have been documented in the HPI. ROS Other: All systems not noted in ROS Statement are negative. Past Medical History Past Medical History: Cancer, COPD, CVA/TIA, Deep Vein Thrombosis (DVT), Hyperlipidemia, Myocardial Infarction (ME), Neurologic Disorder, Seizure Disorder, Thyroid Disorder, Vascular Disorder Additional Past Medical History / Comment(s): Multiple sclerosis, CVA in 205 with weakness L arm and paralysis L leg, wheelchair bound, suprapubic catheter- last changed 11/18/19, R breast cancer with lumpectomy, cervical cancer with surgery/chemo, DVT L leg, last seizure 08/2018, PVD, chronic low back pain, DDD, migraines, concussion in 2013, L proximal humerus/shoulder osteomyelitis, current L shoulder lesion-to have follow up, past R leg cellulitis, pt was born with heart malformation/defect, hypothyroid. Last Myocardial Infarction Date:: 2004 History of Any Multi-Drug Resistant Organisms: MRSA Date of last positivie culture/infection: 06/14/15 MDRO Source:: sputum Past Surgical History: Back Surgery, Bladder Surgery, Breast Surgery, Cholecystectomy, Heart Catheterization, Hysterectomy, Orthopedic Surgery, Tonsillectomy Additional Past Surgical History / Comment(s): Open subcutaneous skin/scar tissue release L arm, L upper arm lesion removed, sinus surgery FOR DEVIATED SEPTUM; Rt breast lumpectomy; Rt knee surgery x 4 ARTHROSCOPIES AND ACL RECONSTRUCTION; LAPAROSCOPY, EXC ADHESIONS. Suprapubic Cath.,07-28-17 egd w/ stomach bx-neg, back pain injections, spinal stimulator, PICCs, lt subclavian port a cath implanted on 01-13-18 pt stated "it's never been accessed". Past Anesthesia/Blood Transfusion Reactions: No Reported Reaction Additional Past Anesthesia/Blood Transfusion Reaction / Comment(s): CLAUSTROPHOBIA Past Psychological History: No Psychological Hx Reported Smoking Status: Former smoker Past Alcohol Use History: None Reported Past Drug Use History: None Reported - Past Family History Father Family Medical History: Diabetes Mellitus, Myocardial Infarction (ME), Osteoarthritis (OA) Additional Family Medical History / Comment(s): Father fell and suffered brain edema and . He had CABG. He at the age of 77yrs Mother Family Medical History: Myocardial Infarction (ME) Additional Family Medical History / Comment(s): Mother of a ME at the age of 70 General Exam Limitations: no limitations General appearance: alert, in no apparent distress Head exam: Present: atraumatic, normocephalic Eye exam: Present: normal appearance, PERRL ENT exam: Present: normal exam Neck exam: Present: normal inspection. Absent: tenderness, meningismus Respiratory exam: Present: normal lung sounds bilaterally. Absent: respiratory distress, wheezes Cardiovascular Exam: Present: regular rate, normal rhythm GI/Abdominal exam: Present: soft. Absent: distended, tenderness, guarding, rebound Extremities exam: Present: normal inspection, normal capillary refill Neurological exam: Present: alert, oriented X3 Psychiatric exam: Present: normal affect, normal mood Skin exam: Present: warm, dry, intact. Absent: cyanosis, diaphoretic Course Vital Signs 11/09/19 11/09/19 10:25 10:28 Temperature 98.4 F Pulse Rate 73 Pulse Rate [ 74 Marketer ] Respiratory 18 Rate Blood Pressure 101/56 O2 Sat by Pulse 98 Oximetry EKG Findings - EKG Comments: EKG Findings:: EKG: Normal sinus rhythm, T-wave inversion in lead 3, no ST segment elevation, similar EKG compared to previous in August 2018. Rate of 66, [place] interval 152, QRS duration 88, QTC 473 Medical Decision Making - Medical Decision Making 54 -year-old female history of MS presenting for evaluation of chest pain over the past 4 days. Patient believes her pain is related to her chronic MS pain bu t she was encouraged to present to the emergency department by her home care nurse. EKG showed sinus rhythm with no ST segment elevation. She has significant laboratory abnormalities which appears baseline for this patient. She is leukopenic white blood cell count at 3, she has a hemoglobin of 8 which is baseline for her. Troponin is negative. I did discuss case with Dr. Bowers who is familiar with this patient. He will evaluate the patient on an outpatient basis within the next 1-2 days. Patient is agreeable with this plan. She is resting comfortably with no symptoms on reevaluation. - Lab Data Result diagrams: 11/09/19 10:40 11/09/19 10:40 Lab Results 11/09/19 11/09/19 11/09/19 Range/Units 10:40 10:40 10:40 WBC 3.0 L (3.8-10.6) k/uL RBC 3.35 L (3.80-5.40) m/uL Hgb 8.0 L (11.4-16.0) gm/dL Hct 28.5 L (34.0-46.0) % MCV 85.1 (80.0-100.0) fL MCH 23.9 L (25.0-35.0) pg MCHC 28.2 L (31.0-37.0) g/dL RDW 18.3 H (11.5-15.5) % Plt Count 213 (150-450) k/uL Neutrophils % (Manual) 67 % Lymphocytes % (Manual) 22 % Monocytes % (Manual) 6 % Eosinophils % (Manual) 4 % Basophils % (Manual) 1 % Neutrophils # (Manual) 2.01 (1.3-7.7) k/uL Lymphocytes # (Manual) 0.66 L (1.0-4.8) k/uL Monocytes # (Manual) 0.18 (0-1.0) k/uL Eosinophils # (Manual) 0.12 (0-0.7) k/uL Basophils # (Manual) 0.03 (0-0.2) k/uL Nucleated RBCs 0 (0-0) /100 WBC Manual Slide Review Performed Hypochromasia Marked Poikilocytosis (manual Present Anisocytosis Slight PT 11.7 (9.0-12.0) sec INR 1.2 H (<1.2) APTT 28.9 (22.0-30.0) sec Sodium 140 (137-145) mmol/L Potassium 3.9 (3.5-5.1) mmol/L Chloride 116 H (98-107) mmol/L Carbon Dioxide 16 L (22-30) mmol/L Anion Gap 8 mmol/L BUN 18 H (7-17) mg/dL Creatinine 0.76 (0.52-1.04) mg/dL Est GFR (CKD-EPI)AfAm >90 (>60 ml/min/1.73 sqM) Est GFR (CKD-EPI)NonAf 90 (>60 ml/min/1.73 sqM) Glucose 83 (74-99) mg/dL Calcium 8.1 L (8.4-10.2) mg/dL Magnesium 1.9 (1.6-2.3) mg/dL Total Bilirubin 0.1 L (0.2-1.3) mg/dL AST 28 (14-36) U/L ALT 12 (4-34) U/L Alkaline Phosphatase 88 (38-126) U/L Troponin I (0.000-0.034) ng/mL NT-Pro-B Natriuret Pep pg/mL Total Protein 6.5 (6.3-8.2) g/dL Albumin 3.4 L (3.5-5.0) g/dL Lipase 136 (23-300) U/L 11/09/19 11/09/19 Range/Units 10:40 10:40 WBC (3.8-10.6) k/uL RBC (3.80-5.40) m/uL Hgb (11.4-16.0) gm/dL Hct (34.0-46.0) % MCV (80.0-100.0) fL MCH (25.0-35.0) pg MCHC (31.0-37.0) g/dL RDW (11.5-15.5) % Plt Count (150-450) k/uL Neutrophils % (Manual) % Lymphocytes % (Manual) % Monocytes % (Manual) % Eosinophils % (Manual) % Basophils % (Manual) % Neutrophils # (Manual) (1.3-7.7) k/uL Lymphocytes # (Manual) (1.0-4.8) k/uL Monocytes # (Manual) (0-1.0) k/uL Eosinophils # (Manual) (0-0.7) k/uL Basophils # (Manual) (0-0.2) k/uL Nucleated RBCs (0-0) /100 WBC Manual Slide Review Hypochromasia Poikilocytosis (manual Anisocytosis PT (9.0-12.0) sec INR (<1.2) APTT (22.0-30.0) sec Sodium (137-145) mmol/L Potassium (3.5-5.1) mmol/L Chloride (98-107) mmol/L Carbon Dioxide (22-30) mmol/L Anion Gap mmol/L BUN (7-17) mg/dL Creatinine (0.52-1.04) mg/dL Est GFR (CKD-EPI)AfAm (>60 ml/min/1.73 sqM) Est GFR (CKD-EPI)NonAf (>60 ml/min/1.73 sqM) Glucose (74-99) mg/dL Calcium (8.4-10.2) mg/dL Magnesium (1.6-2.3) mg/dL Total Bilirubin (0.2-1.3) mg/dL AST (14-36) U/L ALT (4-34) U/L Alkaline Phosphatase (38-126) U/L Troponin I <0.012 (0.000-0.034) ng/mL NT-Pro-B Natriuret Pep 165 pg/mL Total Protein (6.3-8.2) g/dL Albumin (3.5-5.0) g/dL Lipase (23-300) U/L Disposition Clinical Impression: Chest pain Disposition: HOME SELF-CARE Condition: Fair Instructions (If sedation given, give patient instructions): Chest Pain (ED) Is patient prescribed a controlled substance at d/c from ED?: No Referrals: Keith Bowers MD [Primary Care Provider] - 1-2 days Time of Disposition: 12:02
[2019-11-09 11:30] LABS: Basophils # (M) 0.03 k/uL (0-0.2); Eosinophils # (M) 0.12 k/uL (0-0.7); Lymphocytes # (M) 0.66 k/uL (1.0-4.8); Monocytes # (M) 0.18 k/uL (0-1.0); Neutrophils # (M) 2.01 k/uL (1.3-7.7); Neutrophils % (M) 67 %; Nucleated Red Blood Cells 0 /100 WBC (0-0); Poikilocytosis (M) Present; Total Cells Counted 100
[2019-11-09 12:19] VITALS: BP 104/65; PULSE 70
== END 2019-11-09 12:14 | disposition home or self-care (01) ==
LOC: EC 10:23
DX: R07.9 Chest pain, unspecified (principal); R11.2 Nausea with vomiting, unspecified; J44.9 Chronic obstructive pulmonary disease, unspecified; I25.2 Old myocardial infarction; E03.9 Hypothyroidism, unspecified; G40.909 Epilepsy, unspecified, not intractable, without status epilepticus; Z79.01 Long term (current) use of anticoagulants; Z79.82 Long term (current) use of aspirin; Z79.890 Hormone replacement therapy; Z79.899 Other long term (current) drug therapy; Z88.8 Allergy status to other drugs, medicaments and biological substances; Z88.2 Allergy status to sulfonamides; Z87.891 Personal history of nicotine dependence; Z86.73 Personal history of transient ischemic attack (TIA), and cerebral infarction without residual deficits; Z86.718 Personal history of other venous thrombosis and embolism; Z85.41 Personal history of malignant neoplasm of cervix uteri; Z85.3 Personal history of malignant neoplasm of breast; Z99.3 Dependence on wheelchair
CPT/HCPCS: 36415; 71046; 80053; 83690; 83735; 83880; 84484; 85025; 85610; 85730; 93005; 99285

== ENCOUNTER → 2020-02-22 | Outpatient (CLI) | payer MEDICARE, OTHER ==
--- NOTE | 2020-02-22 16:43 | XR ---
EXAMINATION TYPE: XR chest 2V DATE OF EXAM: 02/22/2020 COMPARISON: Chest x-ray November 09, 2019. HISTORY: Heart failure and shortness of breath. TECHNIQUE: Frontal and lateral views of the chest are obtained. FINDINGS: Stable left subclavian Mediport catheter. Persistent low lung volumes and patchy bibasilar linear scarring and/or atelectasis. There is no new suspicious focal air space opacity, pleural effus ion, or pneumothorax seen. The cardiac silhouette size is stable and upper limits of normal. Spinal stimulator in the mid to lower thoracic spinal canal redemonstrated posteriorly. Cholecystectomy clip s noted seen best on lateral view IMPRESSION: Overall stable findings, low lung volumes with patchy bibasilar atelectasis. No new sign ificant pleural effusion noted.
--- NOTE | 2020-02-22 18:59 | ECHOF ---
Referral Reason:Congestive heart failure I50.20 MEASUREMENTS -------- HEIGHT: 162.6 cm WEIGHT: 77.1 kg BP: RVIDd: 2.9 cm (< 3.3) IVSd: 1.2 cm (0.6 - 1.1) LVIDd: 4.6 cm (3.9 - 5.3) LVPWd: 1.1 cm (0.6 - 1.1) IVSs: 1.6 cm LVIDs: 2.6 cm LVPWs: 2.0 cm Ao Diam: 2.7 cm (2.0 - 3.7) AV Cusp: 1.8 cm (1.5 - 2.6) LA Diam: 2.8 cm (2.7 - 3.8) MV EXCURSION: 17.007 mm (> 18.000) MV EF SLOPE: 134 mm/s (70 - 150) EPSS: 1.1 cm MV E Fidel: 0.87 m/s MV DecT: 192 ms MV A Fidel: 0.70 m/s MV E/A Ratio: 1.25 RAP: 5.00 mmHg RVSP: 28.93 mmHg FINDINGS -------- Sinus rhythm. This was a technically adequate study. The left ventricular size is normal. There is mild concentric left ventricular hypertrophy. Overa ll left ventricular systolic function is normal with, an EF between 55 - 60 %. The right ventricle is normal in size. The left atrial size is normal. The right atrial size is normal. Interatrial and interventricular septum intact. The aortic valve is trileaflet and appears structurally normal. The mitral valve is normal. The mitral valve leaflets are mildly thickened. [id number] mitr al regurgitation is present. The tricuspid valve appears structurally normal. Mild tricuspid regurgitation present. Right vent ricular systolic pressure is normal at < 35 mmHg. There is no pulmonic regurgitation present. The aortic root size is normal. Normal inferior vena cava with normal inspiratory collapse consistent with estimated right atrial pre ssure of 5 mmHg. There is no pericardial effusion. CONCLUSIONS -------- 1. The left ventricular size is normal. 2. There is mild concentric left ventricular hypertrophy. 3. Overall left ventricular systolic function is normal with, an EF between 55 - 60 %. 4. The mitral valve leaflets are mildly thickened. 5. [id number] mitral regurgitation is present. 6. Mild tricuspid regurgitation present. ST[employer] HELPER: Maura Jiménez RDCS
== END | disposition home or self-care (01) ==
LOC: RADECHMAIN 15:57
PROVIDERS: ATTEND Family Medicine
DX: I08.1 Rheumatic disorders of both mitral and tricuspid valves (principal); J98.11 Atelectasis; I50.20 Unspecified systolic (congestive) heart failure; Z88.2 Allergy status to sulfonamides; Z88.8 Allergy status to other drugs, medicaments and biological substances
CPT/HCPCS: 71046; 93306

== ENCOUNTER 2020-03-19 10:44 | Emergency (ER) | payer MEDICARE, OTHER ==
[2020-03-19 11:00] VITALS: RESP 18
[2020-03-19] MEDS ORDERED: MORPHINE SULFATE 4 MG/ML SYRINGE IV STA (11:01)
[2020-03-19] MEDS ORDERED: MORPHINE SULFATE 4 MG/ML SYRINGE IM STA (11:12)
--- NOTE | 2020-03-19 11:25 | ED ---
General Adult HPI - General Chief complaint: Fall Stated complaint: Fall Time Seen by Provider: 03/19/20 10:47 Source: patient, EMS, RN notes reviewed, old records reviewed Mode of arrival: EMS - History of Present Illness Initial comments: 55-year-old female patient presents to ED for evaluation of mechanical fall. Patient does have extensive past medical history prior DVT, prior CVA, multiple sclerosis, anticoagulation on xaralto. Patient reports that she tripped over her dog falling to the side hitting the left side of her face on the ground. Patient does not know if she lost consciousness. Patient is complaining of a mild headache left periorbital pain and some shoulder pain. Patient was that she has history of osteomyelitis of her shoulder. Systemic: Pt denies fatigue, fever/chills, rash. Pt denies weakness, night sweats, weight loss. Neuro: Pt denies visual disturbances, syncope or pre-syncope. HEENT: Pt denies ocular discharge or irritation, otalgia, rhinorrhea, pharyngitis or notable lymphadenopathy. Cardiopulmonary: Pt denies chest pain, SOB, heart palpitations, dyspnea on exertion. Abdominal/GI: Pt denies abdominal pain, n/v/d. : Pt denies dysuria, burning w/ urination, frequency/urgency. Denies new onset urinary or bowel incontinence. MSK: Pt denies loss of strength or function in extremities. Neuro: Pt denies new onset weakness, paresthesias. - Related Data Home Medications Medication Instructions Recorded Confirmed Propranolol HCl [Inderal LA] 160 mg PO HS@199903/07/14 06/08/19 Topiramate [Topamax] 400 mg PO HS@199903/07/14 06/08/19 Levothyroxine Sodium [Synthroid] 100 mcg PO DAILY@0800 07/02/16 06/08/19 Potassium Chloride ER [K-Dur 10] 10 meq PO DAILY@0800 06/13/17 06/08/19 Omeprazole [PriLOSEC] 40 mg PO DAILY@0807/07/17 06/08/19 tiZANidine HCL [Zanaflex] 4 mg PO BID 07/07/17 06/08/19 Rivaroxaban [Xarelto] 20 mg PO DAILY@0800 02/03/18 06/08/19 Magnesium Oxide [Mag-Ox] 250 mg PO DAILY 04/02/18 06/08/19 Acetaminophen [Tylenol] 650 mg PO Q6H PRN 08/14/18 06/08/19 Propylene Glycol/Peg 400 [Systane 1 drop BOTH EYES BID@0800,199908/14/18 06/08/19 Ultra 0.4-0.3% Eye Drp] Aspirin EC [Ecotrin Low Dose] 81 mg PO DAILY 11/27/18 06/08/19 Lacosamide [Vimpat] 150 mg PO BID 11/28/18 06/08/19 Acetaminophen with Codeine 1 tab PO Q6H PRN 01/20/19 06/08/19 [Tylenol with Codeine #4 Tablet] Oxybutynin Chloride [Oxybutynin 15 mg PO BID 06/08/19 06/08/19 Chloride ER] Temazepam [Restoril] 30 mg PO HS 06/08/19 06/08/19 Previous Rx's Medication Instructions Recorded Acetaminophen Tab [Tylenol] 650 mg PO Q6HR PRN tab 06/12/19 Acetaminophen-Codeine 300-30mg 1 each PO Q8HR PRN tab 06/12/19 [Tylenol w/codeine #3] Cefdinir [Omnicef] 300 mg PO Q12HR #14 capsule 06/12/19 Temazepam [Restoril] 15 mg PO HS cap 06/12/19 guaiFENesin-DM 100-10MG/5ML 10 ml PO Q6HR cup 06/12/19 [Robitussin DM] predniSONE 10 mg PO DAILY #30 tab 06/12/19 tiZANidine [Zanaflex] 4 mg PO BID tab 06/12/19 Allergies Allergy/AdvReac Type Severity Reaction Status Date / Time guaifenesin [From Entex LA] Allergy Anaphylaxis Verified 09/12/19 10:31 phenylephrine HCl Allergy Anaphylaxis Verified 09/12/19 10:31 [From Entex LA] phenylpropanolamine HCl Allergy Anaphylaxis Verified 09/12/19 10:31 [From Entex LA] Sulfa (Sulfonamide Allergy Anaphylaxis Verified 09/12/19 10:31 Antibiotics) tuberculin, purified protein Allergy Anaphylaxis Verified 09/12/19 10:31 deriva [Tuberculin,Purif.Prot.Deriv.] pseudoephedrine HCl AdvReac Swelling Verified 09/12/19 10:31 [From Mucinex D] Review of Systems ROS Statement: Those systems with pertinent positive or pertinent negative responses have been documented in the HPI. ROS Other: All systems not noted in ROS Statement are negative. Past Medical History Past Medical History: Cancer, COPD, CVA/TIA, Deep Vein Thrombosis (DVT), Hyperlipidemia, Myocardial Infarction ([place]), Neurologic Disorder, Seizure Disorder, Thyroid Disorder, Vascular Disorder Additional Past Medical History / Comment(s): Multiple sclerosis, CVA in 205 with weakness L arm and paralysis L leg, wheelchair bound, suprapubic catheter- last changed 05/31/19, R breast cancer with lumpectomy, cervical cancer with surgery/chemo, DVT L leg, last seizure 08/2018, PVD, chronic low back pain, DDD, migraines, concussion in 2013, L proximal humerus/shoulder osteomyelitis, current L shoulder lesion-to have follow up, past R leg cellulitis, pt was born with heart malformation/defect, hypothyroid. Last Myocardial Infarction Date:: 2004 History of Any Multi-Drug Resistant Organisms: MRSA Date of last positivie culture/infection: 06/14/15 MDRO Source:: sputum Past Surgical History: Back Surgery, Bladder Surgery, Breast Surgery, Cholecystectomy, Heart Catheterization, Hysterectomy, Orthopedic Surgery, Tonsillectomy Additional Past Surgical History / Comment(s): Open subcutaneous skin/scar tissue release L arm, L upper arm lesion removed, sinus surgery FOR DEVIATED SEPTUM; Rt breast lumpectomy; Rt knee surgery x 4 ARTHROSCOPIES AND ACL RECONSTRUCTION; LAPAROSCOPY, EXC ADHESIONS. Suprapubic Cath.,07-28-17 egd w/ sto mach bx-neg, back pain injections, spinal stimulator, PICCs, lt subclavian port a cath implanted on 01-13-18 pt stated "it's never been accessed". Past Anesthesia/Blood Transfusion Reactions: No Reported Reaction Additional Past Anesthesia/Blood Transfusion Reaction / Comment(s): CLAUSTROPHOBIA Past Psychological History: No Psychological Hx Reported Past Alcohol Use History: None Reported Past Drug Use History: None Reported - Past Family History Father Family Medical History: Diabetes Mellitus, Myocardial Infarction ([place]), Osteoarthritis ([place]) Additional Family Medical History / Comment(s): Father fell and suffered brain edema and . He had CABG. He at the age of 77yrs Mother Family Medical History: Myocardial Infarction ([place]) Additional Family Medical History / Comment(s): Mother of a [place] at the age of 70 General Exam - General Exam Comments Initial Comments: Constitutional: NAD, AOX3, Pt has pleasant affect. HEENT: NC/AT, trachea midline, neck supple, no lymphadenopathy. Posterior pharynx non erythematous, without exudates. External ears appear normal, without discharge. Mucous membranes moist. Eyes PERRLA, EOM intact. There is no scleral icterus. No pallor noted. Cardiopulmonary: RRR, no murmurs, rubs or gallops, no JVD noted. Lungs CTAB in anterior and posterior castellano. No peripheral edema. Abdominal exam: Abdomen soft and non-distended. Abdomen non-tender to palpation in all 4 quadrants. Bowel sounds active in LLQ. No hepatosplenomegaly. No ecchymosis Neuro: CN II-XII intact. No nuchal rigidity. No raccon eyes, no welsh sign, no hemotympanum. No cervical spinal tenderness. MSK: No posterior calf tenderness bilaterally, homans sign negative bilaterally. Extrmeities are warm and well perfused. left anterior shoulder is mildly tender to palpation. No external skin changes. Course Vital Signs 03/19/20 10:52 Temperature 98.7 F Pulse Rate 60 Respiratory 18 Rate Blood Pressure 136/66 O2 Sat by Pulse 98 Oximetry Medical Decision Making - Medical Decision Making 55-year-old female patient presents to ED for evaluation of mechanical fall hitting her head on the ground. Patient complaining of some left facial pain and left shoulder pain. Physical exam is limited neurologic exam mild tenderness to the left anterior shoulder on palpation. Neurologic exam is intact. CT brain C-spine does not display acute pathology. Plain film shoulder chest x-ray negative for acute pathology. Patient was discharged with outpatient follow-up and return precautions. Case discussed with Dr. Berkowitz. Disposition Clinical Impression: Fall, Shoulder sprain Disposition: HOME SELF-CARE Condition: Stable Instructions (If sedation given, give patient instructions): Shoulder Sprain (ED), Fall Prevention (ED) Additional Instructions: Follow up with PCP tomorrow. Follow-up with orthopedic consult if symptoms persist. Return to ER with any worsening symptoms. Is patient prescribed a controlled substance at d/c from ED?: No Referrals: Keith Bowers MD [Primary Care Provider] - 1-2 days Kiba,Serge, PAC [PHYSICIAN [employer]CH[employer]IC] - 1-2 days
--- NOTE | 2020-03-19 12:13 | CT ---
EXAMINATION TYPE: CT brain cspine wo con DATE OF EXAM: 03/19/2020 COMPARISON: CT brain 08/14/2018 HISTORY: Fall struck back of head, Lt sided facial pain CT DLP: 1180.1 mGycm Automated exposure control for dose reduction was used. TECHNIQUE: CT scan of the head and cervical spine are performed without contrast. FINDINGS: There is no acute intracranial hemorrhage, mass effect, or midline shift identified. No extra-axial fluid collection. The ventricles and sulci are within normal limits in size. The globes are grossly symmetric. The visualized sinuses and mastoid air cells are clear. No depressed calvaria l fracture. Extracranial soft tissues are unremarkable. Cervical spine is visualized in its entirety from C1 through upper thoracic levels and demonstrates s atisfactory alignment without evidence of acute fracture or dislocation. Prevertebral soft tissue ap pears within normal limits. The C1-C2 articulation is unremarkable. IMPRESSION: 1. There is no acute fracture or dislocation evident in the cervical spine. 2. No acute intracranial hemorrhage, mass effect, or midline shift is seen.
--- NOTE | 2020-03-19 12:16 | CT ---
EXAMINATION TYPE: CT facial bones wo con DATE OF EXAM: 03/19/2020 COMPARISON: None HISTORY: Fall struck back of head, Lt sided facial pain CT DLP: 1180.1 mGycm Automated exposure control for dose reduction was used. TECHNIQUE: CT scan of the sinuses is performed without contrast, axial images are obtained, coronal r eformatted images are also reviewed. FINDINGS: No evidence of facial bone fracture. The paranasal sinuses are well aerated. There are bila teral antrostomy postsurgical changes. Visualized portion of mastoid air cells show no abnormal opacification. The globes are grossly symme tric bilaterally. Overlying soft tissues demonstrate no significant swelling. Dental caries of the mandibular teeth. IMPRESSION: No evidence of facial bone fracture.
--- NOTE | 2020-03-19 12:18 | XR ---
EXAMINATION TYPE: XR chest 2V DATE OF EXAM: 03/19/2020 CLINICAL HISTORY: Fall TECHNIQUE: Frontal and lateral views of the chest are obtained. COMPARISON: 02/22/2020 chest radiograph FINDINGS: Left-sided MediPort distal tip over the distal SVC. Intrathecal stimulator leads redemonst rated. Post surgical changes of the left shoulder. The cardiomediastinal silhouette is within normal limits for size. Pulmonary vasculature is normal. There is no focal air space opacity, pleural effusi on, or pneumothorax seen. No displaced osseous fractures. IMPRESSION: No acute cardiopulmonary process.
--- NOTE | 2020-03-19 12:20 | XR ---
EXAMINATION TYPE: XR shoulder complete LT DATE OF EXAM: 03/19/2020 CLINICAL HISTORY: Fall TECHNIQUE: Three views of the left shoulder are obtained. COMPARISON: 04/20/2019 left shoulder radiograph FINDINGS: Redemonstrated postsurgical changes of the left humerus. There is no acute fracture/disloc ation evident in the left shoulder. The acromioclavicular and glenohumeral joint spaces appear withi n normal limits. The visualized ribs are intact and unremarkable. IMPRESSION: Postsurgical changes of the left shoulder, with no evidence of acute fracture or dislocat ion.
[2020-03-19 13:12] VITALS: BP 108/62; PULSE 67; TEMP 98
== END 2020-03-19 13:46 | disposition home or self-care (01) ==
LOC: EC 10:44
DX: S43.402A Unspecified sprain of left shoulder joint, initial encounter (principal); R51 Headache; G35 Multiple sclerosis; E78.5 Hyperlipidemia, unspecified; G40.909 Epilepsy, unspecified, not intractable, without status epilepticus; I25.2 Old myocardial infarction; E07.9 Disorder of thyroid, unspecified; Z79.01 Long term (current) use of anticoagulants; Z79.82 Long term (current) use of aspirin; Z79.890 Hormone replacement therapy; Z79.899 Other long term (current) drug therapy; Z88.2 Allergy status to sulfonamides; Z88.8 Allergy status to other drugs, medicaments and biological substances; Z85.3 Personal history of malignant neoplasm of breast; Z85.41 Personal history of malignant neoplasm of cervix uteri; Z92.21 Personal history of antineoplastic chemotherapy; Z86.73 Personal history of transient ischemic attack (TIA), and cerebral infarction without residual deficits; Z86.14 Personal history of Methicillin resistant Staphylococcus aureus infection; Z95.5 Presence of coronary angioplasty implant and graft; W01.198A Fall on same level from slipping, tripping and stumbling with subsequent striking against other object, initial encounter; Y92.009 Unspecified place in unspecified non-institutional (private) residence as the place of occurrence of the external cause; Z86.718 Personal history of other venous thrombosis and embolism
CPT/HCPCS: 73030; 71046; 72125; 70486; 70450; 99284; 96372; J2270

== ENCOUNTER → 2020-04-10 | Outpatient (CLI) | payer MEDICARE, OTHER | END | disposition home or self-care (01) | LOC: LABWHC1 11:15 | PROVIDERS: ATTEND Family Medicine | DX: Z53.9 Procedure and treatment not carried out, unspecified reason (principal) ==

== ENCOUNTER → 2020-05-02 | Outpatient (CLI) | payer MEDICARE, OTHER | END | disposition home or self-care (01) | LOC: CPPFTMAIN 13:09 | PROVIDERS: ATTEND Family Medicine | DX: J44.9 Chronic obstructive pulmonary disease, unspecified (principal); R94.2 Abnormal results of pulmonary function studies; Z88.2 Allergy status to sulfonamides; Z88.8 Allergy status to other drugs, medicaments and biological substances | CPT/HCPCS: 94060; 94726; 94729 ==

== ENCOUNTER 2020-11-05 11:35 | Inpatient (IN) | payer MEDICARE, OTHER ==
[2020-11-05] MEDS ORDERED: ACETAMINOPHEN TAB 500 MG TAB PO STA (11:56)
[2020-11-05] MEDS ORDERED: ONDANSETRON 4 MG/2 ML VIAL IVP STA (11:57)
[2020-11-05] MEDS ORDERED: SODIUM CHLORIDE 0.9% 1,000 ML IV STA (11:57)
--- NOTE | 2020-11-05 12:13 | ED ---
General Adult HPI - General Source: patient, EMS Mode of arrival: EMS Limitations: no limitations <Soraya Raya - Last Filed: 11/05/20 12:10> <Lori Hamlin - Last Filed: 11/05/20 15:58> - General Chief complaint: Chest Pain Stated complaint: cough/chest pain Time Seen by Provider: 11/05/20 11:47 - History of Present Illness Initial comments: Patient is a 55-year-old female with history of COPD, CVA, heart disease, presenting to the emergency department via EMS with complaints of shortness of breath, chest pain and fevers over the past week. She is also been having some nausea and vomiting. She states the chest pain has been going on for the week as well, increases when she takes in a deep breath. She states it wraps around her entire chest, feels like lung pain. Patient was given aspirin and EMS prior to arrival. She does take a blood thinner, Xarelto. She does admit to intermittent fevers, no Tylenol or Motrin today. She denies any abdominal pain, no diarrhea. She has no further complaints at this time. Upon arrival to the ER, she does have a temperature of 103.0, pulse is 90, 97% on room air, blood pressure is 131/65. (Soraya Raya) - Related Data Home Medications Medication Instructions Recorded Confirmed Propranolol HCl [Inderal LA] 160 mg PO HS@199903/07/14 11/05/20 Topiramate [Topamax] 200 mg PO BID 03/07/14 11/05/20 Levothyroxine Sodium [Synthroid] 100 mcg PO DAILY@79907/02/16 11/05/20 Omeprazole [PriLOSEC] 40 mg PO DAILY@79907/07/17 11/05/20 Rivaroxaban [Xarelto] 20 mg PO DAILY@79902/03/18 11/05/20 Magnesium Oxide [Mag-Ox] 250 mg PO DAILY 04/02/18 11/05/20 Aspirin EC [Ecotrin Low Dose] 81 mg PO DAILY 11/27/18 11/05/20 Lacosamide [Vimpat] 150 mg PO BID 11/28/18 11/05/20 Oxybutynin Chloride [Oxybutynin 15 mg PO BID 06/08/19 11/05/20 Chloride ER] Cetirizine HCl [Zyrtec] 10 mg PO DAILY 11/05/20 11/05/20 Ferrous Sulfate [Feosol] 325 mg PO BID 11/05/20 11/05/20 Furosemide [Lasix] 40 mg PO DAILY 11/05/20 11/05/20 HYDROcodone/APAP 7.5-325MG [[place] 1 tab PO Q8H PRN 11/05/20 11/05/20 7.5-325] Mirtazapine [Remeron] 30 mg PO HS 11/05/20 11/05/20 Potassium Chloride ER [K-Dur 20] 20 meq PO DAILY 11/05/20 11/05/20 Temazepam [Restoril] 15 mg PO BID 11/05/20 11/05/20 Umeclidinium Brm/Vilanterol Tr 1 puff INHALATION RT-DAILY 11/05/20 11/05/20 [Anoro Ellipta 62.5-25 Mcg INH] Previous Rx's Medication Instructions Recorded tiZANidine [Zanaflex] 4 mg PO BID tab 06/12/19 Allergies Allergy/AdvReac Type Severity Reaction Status Date / Time guaifenesin [From Entex LA] Allergy Anaphylaxis Verified 11/05/20 12:38 phenylephrine HCl Allergy Anaphylaxis Verified 11/05/20 12:38 [From Entex LA] phenylpropanolamine HCl Allergy Anaphylaxis Verified 11/05/20 12:38 [From Entex LA] Sulfa (Sulfonamide Allergy Anaphylaxis Verified 11/05/20 12:38 Antibiotics) tuberculin, purified protein Allergy Anaphylaxis Verified 11/05/20 12:38 deriva [Tuberculin,Purif.Prot.Deriv.] pseudoephedrine HCl AdvReac Swelling Verified 11/05/20 12:38 [From Mucinex D] Review of Systems ROS Other: All systems not noted in ROS Statement are negative. <Soraya Raya L - Last Filed: 11/05/20 12:10> ROS Other: All systems not noted in ROS Statement are negative. <Lori Hamlin - Last Filed: 11/05/20 15:58> ROS Statement: Those systems with pertinent positive or pertinent negative responses have been documented in the HPI. Past Medical History Past Medical History: Cancer, COPD, CVA/TIA, Deep Vein Thrombosis (DVT), Hyperlipidemia, Myocardial Infarction ([place]), Neurologic Disorder, Seizure Disorder, Thyroid Disorder, Vascular Disorder Additional Past Medical History / Comment(s): Multiple sclerosis, CVA in 205 with weakness L arm and paralysis L leg, wheelchair bound, suprapubic catheter- last changed 05/31/19, R breast cancer with lumpectomy, cervical cancer with surgery/chemo, DVT L leg, last seizure 08/2018, PVD, chronic low back pain, DDD, migraines, concussion in 2013, L proximal humerus/shoulder osteomyelitis, current L shoulder lesion-to have follow up, past R leg cellulitis, pt was born with heart malformation/defect, hypothyroid. Last Myocardial Infarction Date:: 2004 History of Any Multi-Drug Resistant Organisms: MRSA Date of last positivie culture/infection: 06/14/15 MDRO Source:: sputum Past Surgical History: Back Surgery, Bladder Surgery, Breast Surgery, Cholecystectomy, Heart Catheterization, Hysterectomy, Orthopedic Surgery, Tonsillectomy Additional Past Surgical History / Comment(s): Open subcutaneous skin/scar tissue release L arm, L upper arm lesion removed, sinus surgery FOR DEVIATED SEPTUM; Rt breast lumpectomy; Rt knee surgery x 4 ARTHROSCOPIES AND ACL RECONSTRUCTION; LAPAROSCOPY, EXC ADHESIONS. Suprapubic Cath.,07-28-17 egd w/ stomach bx-neg, back pain injections, spinal stimulator, PICCs, lt subclavian port a cath implanted on 01-13-18 pt stated "it's never been accessed". Past Anesthesia/Blood Transfusion Reactions: No Reported Reaction Additional Past Anesthesia/Blood Transfusion Reaction / Comment(s): CLAUSTR OPHOBIA Past Psychological History: No Psychological Hx Reported Smoking Status: Former smoker Past Alcohol Use History: None Reported Past Drug Use History: None Reported - Past Family History Father Family Medical History: Diabetes Mellitus, Myocardial Infarction ([place]), Osteoarthritis ([place]) Additional Family Medical History / Comment(s): Father fell and suffered brain edema and . He had CABG. He at the age of 77yrs Mother Family Medical History: Myocardial Infarction ([place]) Additional Family Medical History / Comment(s): Mother of a [place] at the age of 70 <Soraya Raya - Last Filed: 11/05/20 12:10> General Exam Limitations: no limitations <Soraya Raya - Last Filed: 11/05/20 12:10> - General Exam Comments Initial Comments: GENERAL: Patient is well-developed and well-nourished. Patient is nontoxic and in mild distress, diaphoretic. HEAD: Atraumatic, normocephalic. EYES: Pupils equal round and reactive to light, extraocular movements intact, sclera anicteric, conjunctiva are normal. Eyelids were unremarkable. ENT: TMs normal, nares patent, oropharynx clear without exudates. Moist mucous membranes. NECK: Normal range of motion, supple without lymphadenopathy or JVD. LUNGS: Unlabored respirations. Scattered wheezes. HEART: Regular rate and rhythm without murmurs, rubs or gallops. ABDOMEN: Soft, nontender, normoactive bowel sounds. No guarding, no rebound. No masses appreciated. : Deferred MUSCULOSKELETAL: Normal extremities with adequate strength and normal range of motion, no pitting or edema. No clubbing or cyanosis. NEUROLOGICAL: Patient is alert and oriented x 3. Motor and sensory are also intact. Cranial nerves II through XII grossly intact. Symmetrical smile. Normal speech, normal gait. PSYCH: Normal mood, normal affect. SKIN: Warm, Dry, normal turgor, no rashes or lesions noted. (Soraya Raya) Course Vital Signs 11/05/20 11/05/20 11/05/20 11:37 12:00 14:45 Temperature 98.2 F 103 F H 101.2 F H Pulse Rate 90 87 Respiratory 18 17 Rate Blood Pressure 131/65 123/70 O2 Sat by Pulse 97 95 Oximetry EKG Findings - EKG Comments: EKG Findings:: Normal sinus rhythm, T-wave abnormalities with depression in V1, V2 and V3. She did have this on a previous EKG on 02/22/2020, they seem more pronounced today. Ventricular rate 91, ID interval 136, QT 370. EKG was reviewed with Dr. Hamlin. <Soraya Raya - Last Filed: 11/05/20 12:10> Medical Decision Making - Lab Data Result diagrams: 11/05/20 12:09 11/05/20 12:09 <Lori Hamlin - Last Filed: 11/05/20 15:58> - Medical Decision Making Patient care was signed out to me from Lea Enid Ivy is a 55-year-old female with history of MS she has a positive for COVID-19 today after being symptomatically for nearly a week. Patient has generalized weakness secondary to infection in the setting of MS. Does not feel comfortable being discharged home. Patient care was discussed with her primary care physician Dr. Bowers who recommends patient receive monoclonal antibody infusion and be placed in observation. (Lori Hamlin) - Lab Data Lab Results 11/05/20 11/05/20 11/05/20 Range/Units 12:09 12:09 12:09 WBC 6.9 (3.8-10.6) k/uL RBC 3.80 (3.80-5.40) m/uL Hgb 8.5 L (11.4-16.0) gm/dL Hct 28.2 L (34.0-46.0) % MCV 74.2 L (80.0-100.0) fL MCH 22.2 L (25.0-35.0) pg MCHC 30.0 L (31.0-37.0) g/dL RDW 16.7 H (11.5-15.5) % Plt Count 229 (150-450) k/uL MPV 7.3 Neutrophils % 84 % Lymphocytes % 8 % Monocytes % 5 % Eosinophils % 1 % Basophils % 1 % Neutrophils # 5.7 (1.3-7.7) k/uL Lymphocytes # 0.6 L (1.0-4.8) k/uL Monocytes # 0.3 (0-1.0) k/uL Eosinophils # 0.1 (0-0.7) k/uL Basophils # 0.1 (0-0.2) k/uL Hypochromasia Marked Poikilocytosis Slight Anisocytosis Slight Microcytosis Slight PT 9.9 (9.0-12.0) sec INR 0.9 (<1.2) APTT 23.4 (22.0-30.0) sec D-Dimer 1.13 H (<0.60) mg/L FEU Sodium 142 (137-145) mmol/L Potassium 4.1 (3.5-5.1) mmol/L Chloride 111 H (98-107) mmol/L Carbon Dioxide 19 L (22-30) mmol/L Anion Gap 12 mmol/L BUN 8 (7-17) mg/dL Creatinine 0.71 (0.52-1.04) mg/dL Est GFR (CKD-EPI)AfAm >90 (>60 ml/min/1.73 sqM) Est GFR (CKD-EPI)NonAf >90 (>60 ml/min/1.73 sqM) Glucose 95 (74-99) mg/dL Plasma Lactic Acid Viktor (0.7-2.0) mmol/L Calcium 8.8 (8.4-10.2) mg/dL Magnesium 1.9 (1.6-2.3) mg/dL Total Bilirubin 0.2 (0.2-1.3) mg/dL AST 18 (14-36) U/L ALT 9 (4-34) U/L Alkaline Phosphatase 125 (38-126) U/L Lactate Dehydrogenase 466 (313-618) U/L Troponin I (0.000-0.034) ng/mL C-Reactive Protein 2.0 H (<1.0) mg/dL Total Protein 7.3 (6.3-8.2) g/dL Albumin 3.8 (3.5-5.0) g/dL Coronavirus (PCR) (Not Detectd) 11/05/20 11/05/20 11/05/20 Range/Units 12:09 12:09 12:09 WBC (3.8-10.6) k/uL RBC (3.80-5.40) m/uL Hgb (11.4-16.0) gm/dL Hct (34.0-46.0) % MCV (80.0-100.0) fL MCH (25.0-35.0) pg MCHC (31.0-37.0) g/dL RDW (11.5-15.5) % Plt Count (150-450) k/uL MPV Neutrophils % % Lymphocytes % % Monocytes % % Eosinophils % % Basophils % % Neutrophils # (1.3-7.7) k/uL Lymphocytes # (1.0-4.8) k/uL Monocytes # (0-1.0) k/uL Eosinophils # (0-0.7) k/uL Basophils # (0-0.2) k/uL Hypochromasia Poikilocytosis Anisocytosis Microcytosis PT (9.0-12.0) sec INR (<1.2) APTT (22.0-30.0) sec D-Dimer (<0.60) mg/L FEU Sodium (137-145) mmol/L Potassium (3.5-5.1) mmol/L Chloride (98-107) mmol/L Carbon Dioxide (22-30) mmol/L Anion Gap mmol/L BUN (7-17) mg/dL Creatinine (0.52-1.04) mg/dL Est GFR (CKD-EPI)AfAm (>60 ml/min/1.73 sqM) Est GFR (CKD-EPI)NonAf (>60 ml/min/1.73 sqM) Glucose (74-99) mg/dL Plasma Lactic Acid Viktor 1.8 (0.7-2.0) mmol/L Calcium (8.4-10.2) mg/dL Magnesium (1.6-2.3) mg/dL Total Bilirubin (0.2-1.3) mg/dL AST (14-36) U/L ALT (4-34) U/L Alkaline Phosphatase (38-126) U/L Lactate Dehydrogenase (313-618) U/L Troponin I <0.012 (0.000-0.034) ng/mL C-Reactive Protein (<1.0) mg/dL Total Protein (6.3-8.2) g/dL Albumin (3.5-5.0) g/dL Coronavirus (PCR) Detected A (Not Detectd) Disposition <oSraya Raya L - Last Filed: 11/05/20 12:10> <Lori Hamlin P - Last Filed: 11/05/20 15:58> Clinical Impression: COVID-19, Multiple sclerosis exacerbation, History of immunosuppressive therapy Disposition: ADMITTED IP TO THIS [facility] Condition: Serious Referrals: Keith Bowers MD [Primary Care Provider] - 1-2 days
[2020-11-05] MEDS ORDERED: MORPHINE SULFATE 2 MG/ML SYRINGE IVP ONE (12:42)
[2020-11-05 12:51] LABS: Anisocytosis Slight; Basophils # (A) 0.1 k/uL (0-0.2); Basophils % (A) 1 %; Eosinophils # (A) 0.1 k/uL (0-0.7); Eosinophils % (A) 1 %; HCT 28.2 % (34.0-46.0); HGB 8.5 gm/dL (11.4-16.0); Hypochromasia Marked; Lymphocytes # (A) 0.6 k/uL (1.0-4.8); Lymphocytes % (A) 8 %; MCH 22.2 pg (25.0-35.0); MCV 74.2 fL (80.0-100.0); Mean Platelet Volume 7.3; Microcytosis Slight; Monocytes # (A) 0.3 k/uL (0-1.0); Monocytes % (A) 5 %; Neutrophils # (A) 5.7 k/uL (1.3-7.7); Neutrophils % (A) 84 %; Platelet Count 229 k/uL (150-450); Poikilocytosis Slight; RDW 16.7 % (11.5-15.5); WBC 6.9 k/uL (3.8-10.6)
[2020-11-05 13:06] LABS: ALT 9 U/L (4-34); AST 18 U/L (14-36); African American GFR (CKD) >90 (>60 ml/min/1.73 sqM); Albumin 3.8 g/dL (3.5-5.0); Alkaline Phosphatase 125 U/L (38-126); Anion Gap 12 mmol/L; Blood Urea Nitrogen 8 mg/dL (7-17); Calcium 8.8 mg/dL (8.4-10.2); Carbon Dioxide 19 mmol/L (22-30); Chloride 111 mmol/L (98-107); Glucose 95 mg/dL (74-99); LDH 466 U/L (313-618); Magnesium 1.9 mg/dL (1.6-2.3); Non-African American GFR(CKD) >90 (>60 ml/min/1.73 sqM); Potassium 4.1 mmol/L (3.5-5.1); Sodium 142 mmol/L (137-145); Total Bilirubin 0.2 mg/dL (0.2-1.3); Total Protein 7.3 g/dL (6.3-8.2)
--- NOTE | 2020-11-05 13:10 | XR ---
EXAMINATION TYPE: XR chest 1V portable DATE OF EXAM: 11/05/2020 COMPARISON: Chest x-ray 03/19/2020 HISTORY: Suspected Covid 19 pneumonia, shortness of breath and fever TECHNIQUE: Single frontal view of the chest is obtained. FINDINGS: There is patchy basilar density present, exam is expiratory and rotated. The cardiac silh ouette size is within normal limits. Postop changes are again noted to the proximal left humerus. The re is a left-sided central venous catheter with distal tip near the cavoatrial junction level. There is a stimulator at the level of the thoracic cord. The osseous structures are intact. IMPRESSION: Correlate for pneumonia.
[2020-11-05 13:39] LABS: INR 0.9 (<1.2); Partial Thromboplastin Time 23.4 sec (22.0-30.0); Prothrombin Time 9.9 sec (9.0-12.0)
[2020-11-05 13:42] LABS: D-Dimer 1.13 mg/L FEU (<0.60)
--- NOTE | 2020-11-05 14:55 | CT ---
EXAMINATION TYPE: CT chest angio for PE DATE OF EXAM: 11/05/2020 COMPARISON: 01/09/2015 HISTORY: chest pain, elevated dimer, COVID CT DLP: 590.7 mGycm Automated exposure control for dose reduction was used. CONTRAST: Performed with IV Contrast, patient injected with 100 mL of Isovue 370. Images obtained from the thoracic inlet to the diaphragm with IV contrast. There are 3-D post process ed images. There is some interstitial infiltrate and atelectasis at the lung bases. There is no pericardial effu ministerio. There is no pleural effusion. Thoracic aorta is intact. There is no aneurysm or dissection. There is no mediastinal adenopathy. The re are no hilar masses. There is no evidence of filling defect in the pulmonary arteries. The bony thorax is intact. Thoracic spine is intact. There is no compression fracture. Sternum is int act. IMPRESSION: No evidence of pulmonary embolism. There is some infiltrate and atelectasis at the lung bases consist ent with some pneumonia that is mostly new compared to old exam.
[2020-11-05] MEDS ORDERED: IBUPROFEN 600 MG TAB PO STA (15:31)
[2020-11-05] MEDS ORDERED: NALOXONE 0.4 MG/ML 1 ML VIAL IV PRN (15:53)
[2020-11-05] MEDS ORDERED: ACETAMINOPHEN TAB 325 MG TAB PO PRN (15:56)
[2020-11-05] MEDS ORDERED: IBUPROFEN 600 MG TAB PO PRN (15:56)
[2020-11-05] MEDS: DEXAMETHASONE SOD PHOSPHATE 10 MG/ML 1 ML VIAL IV SCH (16:20)
[2020-11-05] MEDS ORDERED: MORPHINE SULFATE 4 MG/ML SYRINGE IVP STA (16:25)
[2020-11-05] MEDS ORDERED: SODIUM CHLORIDE 0.9% 50 ML IVPB ONE (17:00)
[2020-11-05] MEDS ORDERED: BAMLANIVIMAB (EUA) 700 MG, ETESEVIMAB (EUA) 1,400 MG in SODIUM CHLORIDE 0.9% 50 ML IVPB ONE (17:15)
[2020-11-05] MEDS: OXYBUTYNIN 15 MG TAB.ER.24 PO SCH (20:25)
[2020-11-05] MEDS: LACOSAMIDE 150 MG TABLET PO SCH (20:25)
[2020-11-05] MEDS: MIRTAZAPINE 15 MG TAB PO SCH (20:26)
[2020-11-05] MEDS: TOPIRAMATE 100 MG TAB PO SCH (20:26)
[2020-11-05] MEDS: tiZANidine 4 MG TAB PO SCH (20:26)
[2020-11-05] MEDS: FERROUS SULFATE 325 MG TAB PO SCH (20:27)
[2020-11-05] MEDS: HYDROcodone/APAP 7.5-325MG 1 EACH TAB PO PRN (20:27)
[2020-11-05] MEDS: PROPRANOLOL LA 80 MG CAP.SA.24H PO SCH (20:27)
[2020-11-05] MEDS: TEMAZEPAM 30 MG CAP PO SCH (21:21)
[2020-11-06] MEDS ORDERED: IPRATROPIUM 0.5 MG/2.5 ML NEBU INHALATION SCH (08:00)
[2020-11-06] MEDS ORDERED: FORMOTEROL FUMARATE 20 MCG/2 ML NEBU INHALATION SCH (08:00)
[2020-11-06] MEDS: HYDROcodone/APAP 7.5-325MG 1 EACH TAB PO PRN ×2 (09:21→17:13)
[2020-11-06] MEDS: OXYBUTYNIN 15 MG TAB.ER.24 PO SCH (09:52)
[2020-11-06] MEDS: RIVAROXABAN 20 MG TAB PO SCH (09:52)
[2020-11-06] MEDS: LORATADINE 10 MG TAB PO SCH (09:52)
[2020-11-06] MEDS: tiZANidine 4 MG TAB PO SCH (09:52)
[2020-11-06] MEDS: MAGNESIUM OXIDE 400 MG TAB PO SCH (09:52)
[2020-11-06] MEDS: LACOSAMIDE 150 MG TABLET PO SCH ×2 (09:53→22:18)
[2020-11-06] MEDS: ASPIRIN 81 MG PO SCH (09:53)
[2020-11-06] MEDS: LEVOTHYROXINE 100 MCG TAB PO SCH (09:53)
[2020-11-06] MEDS: FERROUS SULFATE 325 MG TAB PO SCH ×2 (09:53→22:18)
[2020-11-06] MEDS: FUROSEMIDE 40 MG TAB PO SCH (09:53)
[2020-11-06] MEDS: PANTOPRAZOLE 40 MG TABLET PO SCH (09:53)
[2020-11-06] MEDS: DEXAMETHASONE SOD PHOSPHATE 10 MG/ML 1 ML VIAL IV SCH (09:54)
[2020-11-06] MEDS: TOPIRAMATE 100 MG TAB PO SCH (09:58)
[2020-11-06] MEDS ORDERED: ALBUTEROL HFA INHALER INHALATION PRN (11:25)
[2020-11-06] MEDS: ALBUTEROL HFA INHALER INHALATION SCH ×3 (11:32→20:16)
[2020-11-06] MEDS: CHOLECALCIFEROL 25 MCG (1000 IU) TABLET PO SCH (14:17)
[2020-11-06] MEDS: ZINC SULFATE 220 MG CAP PO SCH (14:17)
[2020-11-06] MEDS: ASCORBIC ACID 500 MG TAB PO SCH ×2 (14:17→22:23)
--- NOTE | 2020-11-06 14:58 | P.CNPUL ---
History of Present Illness Consult date: 11/06/20 Requesting physician: Keith Bowers Reason for consult: dyspnea, pneumonia, other Chief complaint: Fever, shortness of breath, chest pain. History of present illness: Pulmonary consult dated 11/06/2020. 55-year-old female with history of COPD, CVA, heart disease, and multiple sclerosis. The patient presented to the emergency department on November 05, with complaints of increasing shortness of breath, chest pain, and fever. She's been sick for more than a week or so. She also apparently was having some nausea and vomiting. The chest pain was present for a number of days, maybe a week or so. The patient was brought into the emergency room by EMS. She apparently received aspirin in route. She does take a factor X a inhibitor chronically. She did test positive for coronavirus. Currently, she is on room air and looking very comfortable. She apparently did receive BAM. White count 6.9, hemoglobin 8.5, hematocrit 28.2, and platelet count 229,000. D-dimer was 1.13. Sodium pot assium normal. Chloride 111, CO2 19, anion gap 12, BUN 8, creatinine 0.71. Her LDH was 466. Her C-reactive protein was 2.0. Chest x-ray showed patchy basilar abnormalities. The CT angiogram was negative for PE, but did show some minimal infiltrate or atelectasis at the lung bases. Review of Systems REVIEW OF SYSTEMS: CONSTITUTIONAL: Fever chills. NEUROLOGIC: [ Negative.] HEENT: [ Negative.] CARDIAC: Chest pain. PULMONARY: Shortness of breath. GI: Nausea and vomiting. : [Negative.] RHEUMATOLOGIC: [ Negative.] IMMUNOLOGIC: [ Negative.] ENDOCRINE: [Negative. ] DERMATOLOGIC: [Negative.] Past Medical History Past Medical History: Cancer, COPD, CVA/TIA, Deep Vein Thrombosis (DVT), GERD/Reflux, Hyperlipidemia, Myocardial Infarction ([place]), Neurologic Disorder, Seizure Disorder, Thyroid Disorder, Vascular Disorder Additional Past Medical History / Comment(s): Multiple sclerosis, CVA in 2014 with weakness L arm and paralysis L leg, wheelchair bound, neurogenic bladder/suprapubic catheter-last changed 05/31/19, R breast cancer with lumpectomy, cervical cancer with surgery/chemo, DVT L leg, last seizure 08/2018, PVD, chronic low back pain, DDD, migraines, concussion in 2014, L proximal humerus/shoulder osteomyelitis, past R leg cellulitis, pt was born with heart malformation/defect, hypothyroid, fluid retention in legs, sinus problems Last Myocardial Infarction Date:: 2004 History of Any Multi-Drug Resistant Organisms: MRSA Date of last positivie culture/infection: 06/14/15 MDRO Source:: sputum Past Surgical History: Back Surgery, Bladder Surgery, Breast Surgery, Cholecystectomy, Heart Catheterization, Hysterectomy, Orthopedic Surgery, Tonsillectomy Additional Past Surgical History / Comment(s): Open subcutaneous skin/scar tissue release L arm, L upper arm lesion removed, sinus surgery FOR DEVIATED SEPTUM; Rt breast lumpectomy; Rt knee surgery x 4 ARTHROSCOPIES AND ACL RECONSTRUCTION; LAPAROSCOPY, EXC ADHESIONS. Suprapubic Cath.,07-28-17 egd w/ stomach bx-neg, back pain injections, spinal stimulator, PICCs, lt subclavian port a cath implanted on 01-13-18. Past Anesthesia/Blood Transfusion Reactions: No Reported Reaction Additional Past Anesthesia/Blood Transfusion Reaction / Comment(s): CLAUSTROPHOBIA Smoking Status: Former smoker - Past Family History Father Family Medical History: Coronary Artery Disease (CAD), Diabetes Mellitus, Myocardial Infarction ([place]), Osteoarthritis ([place]) Additional Family Medical History / Comment(s): Father fell and suffered brain edema and at the age of 77yrs.. He had CABG. Mother Family Medical History: Myocardial Infarction ([place]) Additional Family Medical History / Comment(s): Mother of a [place] at the age of 70 Medications and Allergies Home Medications Medication Instructions Recorded Confirmed Type Propranolol HCl [Inderal [place]] 160 mg PO HS@199903/07/14 11/05/20 History Topiramate [Topamax] 200 mg PO BID 03/07/14 11/05/20 History Levothyroxine Sodium [Synthroid] 100 mcg PO DAILY@0807/02/16 11/05/20 History Omeprazole [PriLOSEC] 40 mg PO DAILY@0807/07/17 11/05/20 History Rivaroxaban [Xarelto] 20 mg PO DAILY@0800 02/03/18 11/05/20 History Magnesium Oxide [Mag-Ox] 250 mg PO DAILY 04/02/18 11/05/20 History Aspirin EC [Ecotrin Low Dose] 81 mg PO DAILY 11/27/18 11/05/20 History Lacosamide [Vimpat] 150 mg PO BID 11/28/18 11/05/20 History Oxybutynin Chloride [Oxybutynin 15 mg PO BID 06/08/19 11/05/20 History Chloride ER] tiZANidine [Zanaflex] 4 mg PO BID tab 06/12/19 11/05/20 Rx Cetirizine HCl [Zyrtec] 10 mg PO DAILY 11/05/20 11/05/20 History Ferrous Sulfate [Feosol] 325 mg PO BID 11/05/20 11/05/20 History Furosemide [Lasix] 40 mg PO DAILY 11/05/20 11/05/20 History HYDROcodone/APAP 7.5-325MG [[place] 1 tab PO Q8H PRN 11/05/20 11/05/20 History 7.5-325] Mirtazapine [Remeron] 30 mg PO HS 11/05/20 11/05/20 History Potassium Chloride ER [K-Dur 20] 20 meq PO DAILY 11/05/20 11/05/20 History Temazepam [Restoril] 30 mg PO HS 11/05/20 11/05/20 History Umeclidinium Brm/Vilanterol Tr 1 puff INHALATION RT-DAILY 11/05/20 11/05/20 History [Anoro Ellipta 62.5-25 Mcg INH] Allergies Allergy/AdvReac Type Severity Reaction Status Date / Time guaifenesin [From Entex [place]] Allergy Anaphylaxis Verified 11/05/20 12:38 phenylephrine HCl Allergy Anaphylaxis Verified 11/05/20 12:38 [From Entex [place]] phenylpropanolamine HCl Allergy Anaphylaxis Verified 11/05/20 12:38 [From Entex [place]] Sulfa (Sulfonamide Allergy Anaphylaxis Verified 11/05/20 12:38 Antibiotics) tuberculin, purified protein Allergy Anaphylaxis Verified 11/05/20 12:38 deriva [Tuberculin,Purif.Prot.Deriv.] pseudoephedrine HCl AdvReac Swelling Verified 11/05/20 12:38 [From Mucinex D] Physical Exam Osteopathic Statement: *. No significant issues noted on an osteopathic structural exam other than those noted in the History and Physical/Consult. Vitals: Vital Signs Temp Pulse Resp BP Pulse Ox 11/06/20 09:13 102.7 F H 82 18 116/65 95 11/06/20 04:29 99.0 F 70 18 118/67 98 11/06/20 00:31 79 18 125/81 95 11/05/20 20:05 80 22 130/81 96 11/05/20 16:36 99.6 F 11/05/20 16:34 85 18 117/53 96 Intake and Output 11/05/20 11/06/20 11/06/20 22:59 06:59 14:59 Other: Weight 86.183 kg No acute distress, oriented 3. No use of accessory muscles or conversational dyspnea. Room air saturation between 95-98%. HEENT examination is grossly unremarkable. Neck supple. Full range of motion. No adenopathy thyromegaly or neck vein distention. Cardiovascular examination reveals regular rhythm rate. S1-S2 normal. No S3 or S4. No discernible murmur noted. Heart rate 82 bpm. Lungs reveal mostly clear breath sounds. Minimal rhonchi. No wheezes or crackles. Breath sounds equal bilaterally. Abdomen soft bowel sounds are heard. No masses or tenderness. Extremities are intact. No cyanosis clubbing or edema. Skin is without rash or lesion. Neurologic examination is brief but nonfocal. Results - Laboratory Findings CBC and BMP: 11/05/20 12:09 11/05/20 12:09 PT/INR, D-dimer PT 9.9 sec (9.0-12.0) 11/05/20 12:09 INR 0.9 (<1.2) 11/05/20 12:09 D-Dimer 1.13 mg/L FEU (<0.60) H 11/05/20 12:09 Abnormal lab findings: Abnormal Labs 11/05/20 11/05/20 11/05/20 12:09 12:09 12:09 Hgb 8.5 L Hct 28.2 L MCV 74.2 L MCH 22.2 L MCHC 30.0 L RDW 16.7 H Lymphocytes # 0.6 L D-Dimer 1.13 H Chloride 111 H Carbon Dioxide 19 L C-Reactive Protein 2.0 H Coronavirus (PCR) 11/05/20 12:09 Hgb Hct MCV MCH MCHC RDW Lymphocytes # D-Dimer Chloride Carbon Dioxide C-Reactive Protein Coronavirus (PCR) Detected A - Diagnostic Findings Chest x-ray: image reviewed CT scan - chest: image reviewed Assessment and Plan Assessment: Acute coronavirus infection, without much in the way of pulmonary complaints. Patient on room air. Saturations are between 95-98%. Patient did receive BAM in the emergency department. History of multiple sclerosis. History of COPD from previous tobacco use. History of CVA. History of deep venous thrombosis. History of hyperlipidemia. History of myocardial infarction. History of seizure disorder. History of hypothyroidism. Status post suprapubic catheter placement. Multiple other medical problems and comorbidities. Plan: Plan dated 11/06/2020. The patient looks very stable. She apparently did receive BAM in the emergency department. The patient is not on any supplemental oxygen. She does have chronic shortness of breath from COPD and also from her MS. From our perspective, the patient could be discharged home. She could be discharged home on vitamins, including vitamin C, vitamin D3, and zinc. She should be instructed to come back to the emergency room if she is not improved or she gets worse. Currently, for the pulmonary standpoint she looks very stable. Additional recommendations and suggestions are forthcoming. Prognosis is guarded. Time with Patient: Greater than 30
--- NOTE | 2020-11-06 16:46 | P.HPIM ---
History of Present Illness H&P Date: 11/06/20 Chief Complaint: Fevers, shortness of breath This is a 55-year-old female with past medical history of multiple sclerosis, CVA, CAD and multiple other medical issues presented to the ER with complaints of worsening shortness of breath, chest pain, fevers 1 week accompanied by nausea, vomiting, no diarrhea. Denies abdominal pain. Reports her chest pain increases with deep breaths, and radiates around her entire chest, per ER report "feels like lung pain". Troponin negative. EKG reported normal sinus rhythm , T-wave abnormalities in V1 V2 and V3, also on previous EKG as per ER review. D- dimer 1.13, CTA reported no evidence of pulmonary embolism, some infiltrate and atelectasis at the lung bases consistent with a pneumonia mostly new. Chest x- ray reported patchy basilar density. On admission, temperature 103, O2 sats 97% on room air, heart rate 90 with blood pressure stable. Received Motrin and Tylenol as well as BAM. Fevers persisted with temperatures 101.2 @ 1445, and this morning 102.7. WBC 6.9, hemoglobin 8.5, platelet count 229. Sodium, potassium WNL. Chloride 111, CO2 19, anion gap 12, BUN 8, creatinine 0.71. Her LDH was 466. Her C-reactive protein was 2.0. Review of Systems ROS Statement: Those systems with pertinent positive or pertinent negative responses have been documented in the HPI. ROS Other: All systems not noted in ROS Statement are negative. Past Medical History Past Medical History: Cancer, COPD, CVA/TIA, Deep Vein Thrombosis (DVT), Hyperlipidemia, Myocardial Infarction ([place]), Neurologic Disorder, Seizure Disorder, Thyroid Disorder, Vascular Disorder Additional Past Medical History / Comment(s): Multiple sclerosis, CVA in 205 with weakness L arm and paralysis L leg, wheelchair bound, suprapubic catheter- last changed 05/31/19, R breast cancer with lumpectomy, cervical cancer with surgery/chemo, DVT L leg, last seizure 08/2018, PVD, chronic low back pain, DDD, migraines, concussion in 2013, L proximal humerus/shoulder osteomyelitis, current L shoulder lesion-to have follow up, past R leg cellulitis, pt was born with heart malformation/defect, hypothyroid. Last Myocardial Infarction Date:: 2004 History of Any Multi-Drug Resistant Organisms: MRSA Date of last positivie culture/infection: 06/14/15 MDRO Source:: sputum Past Surgical History: Back Surgery, Bladder Surgery, Breast Surgery, Cholecystectomy, Heart Catheterization, Hysterectomy, Orthopedic Surgery, Tonsillectomy Additional Past Surgical History / Comment(s): Open subcutaneous skin/scar tissue release L arm, L upper arm lesion removed, sinus surgery FOR DEVIATED SEPTUM; Rt breast lumpectomy; Rt knee surgery x 4 ARTHROSCOPIES AND ACL RECONSTRUCTION; LAPAROSCOPY, EXC ADHESIONS. Suprapubic Cath.,07-28-17 egd w/ stomach bx-neg, back pain injections, spinal stimulator, PICCs, lt subclavian port a cath implanted on 01-13-18 pt stated "it's never been accessed". Past Anesthesia/Blood Transfusion Reactions: No Reported Reaction Additional Past Anesthesia/Blood Transfusion Reaction / Comment(s): CLAUSTROPHOBIA Past Psychological History: No Psychological Hx Reported Smoking Status: Former smoker Past Alcohol Use History: None Reported Past Drug Use History: None Reported - Past Family History Father Family Medical History: Diabetes Mellitus, Myocardial Infarction ([place]), Osteoarthritis ([place]) Additional Family Medical History / Comment(s): Father fell and suffered brain edema and . He had CABG. He at the age of 77yrs Mother Family Medical History: Myocardial Infarction ([place]) Additional Family Medical History / Comment(s): Mother of a [place] at the age of 70 Medications and Allergies Home Medications Medication Instructions Recorded Confirmed Type Propranolol HCl [Inderal LA] 160 mg PO HS@199903/07/14 11/05/20 History Topiramate [Topamax] 200 mg PO BID 03/07/14 11/05/20 History Levothyroxine Sodium [Synthroid] 100 mcg PO DAILY@0807/02/16 11/05/20 History Omeprazole [PriLOSEC] 40 mg PO DAILY@79907/07/17 11/05/20 History Rivaroxaban [Xarelto] 20 mg PO DAILY@0800 02/03/18 11/05/20 History Magnesium Oxide [Mag-Ox] 250 mg PO DAILY 04/02/18 11/05/20 History Aspirin EC [Ecotrin Low Dose] 81 mg PO DAILY 11/27/18 11/05/20 History Lacosamide [Vimpat] 150 mg PO BID 11/28/18 11/05/20 History Oxybutynin Chloride [Oxybutynin 15 mg PO BID 06/08/19 11/05/20 History Chloride ER] tiZANidine [Zanaflex] 4 mg PO BID tab 06/12/19 11/05/20 Rx Cetirizine HCl [Zyrtec] 10 mg PO DAILY 11/05/20 11/05/20 History Ferrous Sulfate [Iron (65 MG 325 mg PO BID 11/05/20 11/05/20 History Elemental)] Furosemide [Lasix] 40 mg PO DAILY 11/05/20 11/05/20 History HYDROcodone/APAP 7.5-325MG [[place] 1 tab PO Q8H PRN 11/05/20 11/05/20 History 7.5-325] Mirtazapine [Remeron] 30 mg PO HS 11/05/20 11/05/20 History Potassium Chloride ER [K-Dur 20] 20 meq PO DAILY 11/05/20 11/05/20 History Temazepam [Restoril] 30 mg PO HS 11/05/20 11/05/20 History Umeclidinium Brm/Vilanterol Tr 1 puff INHALATION RT-DAILY 11/05/20 11/05/20 History [Anoro Ellipta 62.5-25 Mcg INH] Albuterol Inhaler [Ventolin Hfa 2 puff INHALATION RT-QID #1 inh 11/06/20 Rx Inhaler] Ascorbic Acid [Vitamin C] 500 mg PO BID tab 11/06/20 Rx Cholecalciferol [Vitamin D3 (25 50 mcg PO DAILY tablet 11/06/20 Rx Mcg = 1000 Iu)] Dexamethasone [Decadron] 6 mg PO DAILY #8 tablet 11/06/20 Rx Zinc Sulfate [Orazinc] 220 mg PO DAILY #30 cap 11/06/20 Rx Allergies Allergy/AdvReac Type Severity Reaction Status Date / Time guaifenesin [From Entex LA] Allergy Anaphylaxis Verified 11/05/20 12:38 phenylephrine HCl Allergy Anaphylaxis Verified 11/05/20 12:38 [From Entex LA] phenylpropanolamine HCl Allergy Anaphylaxis Verified 11/05/20 12:38 [From Entex [place]] Sulfa (Sulfonamide Allergy Anaphylaxis Verified 11/05/20 12:38 Antibiotics) tuberculin, purified protein Allergy Anaphylaxis Verified 11/05/20 12:38 deriva [Tuberculin,Purif.Prot.Deriv.] pseudoephedrine HCl AdvReac Swelling Verified 11/05/20 12:38 [From Mucinex D] Physical Exam Vitals: Vital Signs Temp Pulse Resp BP Pulse Ox 11/06/20 09:13 102.7 F H 82 18 116/65 95 11/06/20 04:29 99.0 F 70 18 118/67 98 11/06/20 00:31 79 18 125/81 95 11/05/20 20:05 80 22 130/81 96 11/05/20 16:36 99.6 F 11/05/20 16:34 85 18 117/53 96 11/05/20 14:45 101.2 F H 87 17 123/70 95 11/05/20 12:00 103 F H 11/05/20 11:37 98.2 F 90 18 131/65 97 GENERAL: Fatigued, sitting up in bed, no acute distress HEAD: Atraumatic, normocephalic. EYES: Pupils equal round and reactive to light, extraocular movements intact, sclera anicteric, conjunctiva are normal. ENT:nares patent, oropharynx clear without exudates. Oral mucous membranes, dry. NECK: Normal range of motion, supple without lymphadenopathy or JVD, no thyromegaly LUNGS: Diminished, occasional scattered rhonchi, no crackles, no wheezes. HEART: Regular rate and rhythm without murmurs, rubs or gallops.S1S2 Normal ABDOMEN: Soft, minimally tender above her suprapubic catheter normoactive bowel sounds. No guarding, no rebound. No masses appreciated. Suprapubic catheter is clean dry and intact with no periwound erythema ecchymosis or edema noted. EXTREMITIES: Normal range of motion, no pitting or edema. No clubbing or cyanosis. NEUROLOGICAL: Cranial nerves II through XII grossly intact. Normal speech, gait is untestable as she is in bed. She is noted to have chronic left-sided weakness due to CVA with hemiplegia. PSYCH: Normal mood, normal affect. SKIN: Warm, Dry, normal turgor, no rashes noted. Results CBC & Chem 7: 11/05/20 12:09 11/05/20 12:09 Labs: Abnormal Lab Results - Last 24 Hours (Table) 11/05/20 11/05/20 11/05/20 Range/Units 12:09 12:09 12:09 Hgb 8.5 L (11.4-16.0) gm/dL Hct 28.2 L (34.0-46.0) % MCV 74.2 L (80.0-100.0) fL MCH 22.2 L (25.0-35.0) pg MCHC 30.0 L (31.0-37.0) g/dL RDW 16.7 H (11.5-15.5) % Lymphocytes # 0.6 L (1.0-4.8) k/uL D-Dimer 1.13 H (<0.60) mg/L FEU Chloride 111 H (98-107) mmol/L Carbon Dioxide 19 L (22-30) mmol/L C-Reactive Protein 2.0 H (<1.0) mg/dL Coronavirus (PCR) (Not Detectd) 11/05/20 Range/Units 12:09 Hgb (11.4-16.0) gm/dL Hct (34.0-46.0) % MCV (80.0-100.0) fL MCH (25.0-35.0) pg MCHC (31.0-37.0) g/dL RDW (11.5-15.5) % Lymphocytes # (1.0-4.8) k/uL D-Dimer (<0.60) mg/L FEU Chloride (98-107) mmol/L Carbon Dioxide (22-30) mmol/L C-Reactive Protein (<1.0) mg/dL Coronavirus (PCR) Detected A (Not Detectd) Assessment and Plan Assessment: Acute, Covid 19 pneumonia, status post BAM Gastroesophageal reflux disease Hypothyroidism COPD, history of Neurogenic bladder with suprapubic catheter, doubt UTI, suspect contamination History of CVA with chronic hemiparesis Multiple sclerosis, history of immunosuppressive therapy Seizure disorder CAD, history of [place] Hyperlipidemia Anemia of chronic illness Anxiety Depression Former nicotine dependence Plan: Continue on current medication regime ,monitoring and symptomatic treatment. Maintain supportive care. Maintain covid regimine. Patient had significant fevers, Discharge planning in progress, pending Vital signs. The impression and plan of care has been dictated as directed. : I performed a history and examination of this patient, discussed the same with the dictator. I agree with the dictator's note ,documented as a scribe. Any additional findings or plans will be noted.
[2020-11-06 19:29] VITALS: RESP 16
[2020-11-06] MEDS: MIRTAZAPINE 15 MG TAB PO SCH (22:22)
[2020-11-06] MEDS: PROPRANOLOL LA 80 MG CAP.SA.24H PO SCH (22:23)
[2020-11-07] MEDS: OXYBUTYNIN 15 MG TAB.ER.24 PO SCH ×3 (00:21→09:57)
[2020-11-07] MEDS: TEMAZEPAM 30 MG CAP PO SCH ×2 (00:21→00:58)
[2020-11-07] MEDS: tiZANidine 4 MG TAB PO SCH ×3 (00:21→09:58)
[2020-11-07] MEDS: TOPIRAMATE 100 MG TAB PO SCH ×3 (00:21→09:58)
[2020-11-07] MEDS: HYDROcodone/APAP 7.5-325MG 1 EACH TAB PO PRN ×2 (01:05→10:47)
[2020-11-07] MEDS: ALBUTEROL HFA INHALER INHALATION SCH ×2 (07:14→10:30)
[2020-11-07 09:22] VITALS: BP 118/59; PULSE 82; TEMP 100.4
--- NOTE | 2020-11-07 09:29 | P.PN ---
Subjective Progress Note Date: 11/07/20 Principal diagnosis: Fever. 55-year-old female with history of COPD, CVA, heart disease, and multiple sclerosis. The patient presented to the emergency department on November 05, with complaints of increasing shortness of breath, chest pain, and fever. She's been sick for more than a week or so. She also apparently was having some nausea and vomiting. The chest pain was present for a number of days, maybe a week or so. The patient was brought into the emergency room by EMS. She apparently received aspirin in route. She does take a factor X a inhibitor chronically. She did test positive for coronavirus. Currently, she is on room air and looking very comfortable. She apparently did receive BAM. White count 6.9, hemoglobin 8.5, hematocrit 28.2, and platelet count 229,000. D-dimer was 1.13. Sodium potassium normal. Chloride 111, CO2 19, anion gap 12, BUN 8, creatinine 0.71. Her LDH was 466. Her C-reactive protein was 2.0. Chest x-ray showed patchy basilar abnormalities. The CT angiogram was negative for PE, but did show some minimal infiltrate or atelectasis at the lung bases. Progress note dated 11/07/2020. 55-year-old female with history of COPD, CVA, heart disease, and MS. The patient presented to the emergency department on November 05 with complaints of fever, chest pain, and shortness of breath. She's been sick for more than a week or so. She was also having some nausea and vomiting. She did test positive for coronavirus infection. She did receive BAM. We saw her yesterday in consultation, she was not really having much in way of pulmonary complaints and she was on room air and her saturations were stable. We actually thought th e patient could be discharged from the emergency room, but we noticed that she still here today. She still on room air. She looks relatively comfortable. Her CT angiogram was negative for PE, but did show some minimal infiltrates/atelectasis at the lung bases. No new labs today. Objective - Vital Signs Vital signs: Vital Signs Temp 100.4 F H 11/07/20 08:00 Pulse 82 11/07/20 08:00 Resp 16 11/07/20 04:20 BP 118/59 11/07/20 08:00 Pulse Ox 93 L 11/07/20 08:00 Intake & Output 11/06/20 11/07/20 11/07/20 18:59 06:59 18:59 Intake Total 1580 1500 Output Total 600 1425 Balance 980 75 Weight 86.183 kg Intake: Oral 1580 1500 Output: Urine 600 1425 Other: Voiding Method Indwelling Catheter Indwelling Catheter - Exam No acute distress, oriented 3. No use of accessory muscles or conversational dyspnea. Room air saturation between 93-94 %. HEENT examination is grossly unremarkable. Neck supple. Full range of motion. No adenopathy thyromegaly or neck vein distention. Cardiovascular examination reveals regular rhythm rate. S1-S2 normal. No S3 or S4. No discernible murmur noted. Heart rate 72 bpm. Lungs reveal mostly clear breath sounds. Minimal rhonchi. No wheezes or crackles. Breath sounds equal bilaterally. Abdomen soft bowel sounds are heard. No masses or tenderness. Extremities are intact. No cyanosis clubbing or edema. Skin is without rash or lesion. Neurologic examination is brief but nonfocal. - Labs CBC & Chem 7: 11/05/20 12:09 11/05/20 12:09 Labs: Microbiology - Last 24 Hours (Table) 11/05/20 12:09 Blood Culture - Preliminary Blood No Growth after 24 hours 11/05/20 12:09 Blood Culture - Preliminary Blood No Growth after 24 hours Assessment and Plan Assessment: Acute coronavirus infection, without much in the way of pulmonary complaints. Patient on room air. Saturations are between 93-94%. Patient did receive BAM in the emergency department. History of multiple sclerosis. History of COPD from previous tobacco use. History of CVA. History of deep venous thrombosis. History of hyperlipidemia. History of myocardial infarction. History of seizure disorder. History of hypothyroidism. Status post suprapubic catheter placement. Multiple other medical problems and comorbidities. Plan: Plan dated 11/06/2020. The patient looks very stable. She apparently did receive BAM in the emergency department. The patient is not on any supplemental oxygen. She does have chronic shortness of breath from COPD and also from her MS. From our perspective, the patient could be discharged home. She could be discharged home on vitamins, including vitamin C, vitamin D3, and zinc. She should be instructed to come back to the emergency room if she is not improved or she gets worse. Currently, for the pulmonary standpoint she looks very stable. Addition al recommendations and suggestions are forthcoming. Prognosis is guarded. Plan dated 11/07/2020. The patient again looks very stable. She did receive BAM in the emergency department. The patient is not on any supplemental oxygen. The patient could be discharged home on vitamins, including vitamin C, vitamin D3, and zinc. She should come back to the emergency department if she gets worse. We passes onto the nurses. Hopefully the primary will discharge the patient. Additional recommendations are forthcoming. Time with Patient: Less than 30
[2020-11-07] MEDS: CHOLECALCIFEROL 25 MCG (1000 IU) TABLET PO SCH (09:52)
[2020-11-07] MEDS: LACOSAMIDE 150 MG TABLET PO SCH (09:52)
[2020-11-07] MEDS: ASPIRIN 81 MG PO SCH (09:52)
[2020-11-07] MEDS: ASCORBIC ACID 500 MG TAB PO SCH (09:52)
[2020-11-07] MEDS: ZINC SULFATE 220 MG CAP PO SCH (09:53)
[2020-11-07] MEDS: FERROUS SULFATE 325 MG TAB PO SCH (09:53)
[2020-11-07] MEDS: LEVOTHYROXINE 100 MCG TAB PO SCH (09:53)
[2020-11-07] MEDS: FUROSEMIDE 40 MG TAB PO SCH (09:53)
[2020-11-07] MEDS: MAGNESIUM OXIDE 400 MG TAB PO SCH (09:53)
[2020-11-07] MEDS: PANTOPRAZOLE 40 MG TABLET PO SCH (09:53)
[2020-11-07] MEDS: LORATADINE 10 MG TAB PO SCH (09:53)
[2020-11-07] MEDS: DEXAMETHASONE SOD PHOSPHATE 10 MG/ML 1 ML VIAL IV SCH (09:53)
[2020-11-07] MEDS: RIVAROXABAN 20 MG TAB PO SCH (09:58)
--- NOTE | 2020-11-07 09:59 | P.DS ---
Providers Date of admission: 11/06/20 11:43 Expected date of discharge: 11/07/20 Attending physician: Keith Bowers Consults: 11/06/20 10:36 Consult Physician Routine Consulting Provider: Julia Sprague Consult Reason/Comments: covid-19, febrile,ms Do you want consulting provider notified?: Yes Primary care physician: Keith Bowers Hospital Course: Final Diagnoses: Acute, Covid 19 pneumonia, status post BAM Gastroesophageal reflux disease Hypothyroidism COPD, history of Neurogenic bladder with suprapubic catheter, doubt UTI, suspect contamination History of CVA with chronic hemiparesis Multiple sclerosis, history of immunosuppressive therapy Seizure disorder CAD, history of [place] Hyperlipidemia Anemia of chronic illness Anxiety Depression Former nicotine dependence Hospital course:This is a 55-year-old female with past medical history of multiple sclerosis, CVA, CAD and multiple other medical issues presented to the ER with complaints of worsening shortness of breath, chest pain, fevers 1 week accompanied by nausea, vomiting, no diarrhea. Denies abdominal pain. Reports her chest pain increases with deep breaths, and radiates around her entire chest, per ER report "feels like lung pain". Troponin negative. EKG reported normal sinus rhythm , T-wave abnormalities in V1 V2 and V3, also on previous EKG as per ER review. D-dimer 1.13, CTA reported no evidence of pulmonary embolism, some infiltrate and atelectasis at the lung bases consistent with a pneumonia mostly new. Chest x-ray reported patchy basilar density. On admission, temperature 103, O2 sats 97% on room air, heart rate 90 with blood pressure stable. Received Motrin and Tylenol as well as BAM. Fevers persisted with temperatures 101.2 @ 1445, and this morning 102.7. WBC 6.9, hemoglobin 8.5, platelet count 229. Sodium, potassium WNL. Chloride 111, CO2 19, anion gap 12, BUN 8, creatinine 0.71. Her LDH was 466. Her C-reactive protein was 2.0. Significant clinical improvement. Maintaining O2 sats in the 90s on room air. Denies chest pain, palpitations or increased shortness of breath. Afebrile throughout the night. Low-grade fever this morning. Cleared by pulmonary for discharge. Patient will be discharged home today in a stable condition with guarded prognosis. The impression and plan of care has been dictated as directed. : I performed a history and examination of this patient, discussed the same with the dictator. I agree with the dictator's note ,documented as a scribe. Any additional findings or plans will be noted. Patient Condition at Discharge: Stable Plan - Discharge Summary Discharge Rx Participant: No New Discharge Prescriptions: New Zinc Sulfate [Orazinc] 220 mg PO DAILY #30 cap Albuterol Inhaler [Ventolin Hfa Inhaler] 2 puff INHALATION RT-QID #1 inh Ascorbic Acid [Vitamin C] 500 mg PO BID tab Dexamethasone [Decadron] 6 mg PO DAILY #8 tablet Cholecalciferol [Vitamin D3 (25 Mcg = 1000 Iu)] 50 mcg PO DAILY tablet Continue Propranolol HCl [Inderal LA] 160 mg PO HS@1999 Topiramate [Topamax] 200 mg PO BID Levothyroxine Sodium [Synthroid] 100 mcg PO DAILY@0800 Omeprazole [PriLOSEC] 40 mg PO DAILY@0800 Rivaroxaban [Xarelto] 20 mg PO DAILY@0800 Magnesium Oxide [Mag-Ox] 250 mg PO DAILY Aspirin EC [Ecotrin Low Dose] 81 mg PO DAILY Lacosamide [Vimpat] 150 mg PO BID Oxybutynin Chloride [Oxybutynin Chloride ER] 15 mg PO BID tiZANidine [Zanaflex] 4 mg PO BID tab Potassium Chloride ER [K-Dur 20] 20 meq PO DAILY Cetirizine HCl [Zyrtec] 10 mg PO DAILY Ferrous Sulfate [Iron (65 MG Elemental)] 325 mg PO BID Furosemide [Lasix] 40 mg PO DAILY HYDROcodone/APAP 7.5-325MG [[place] 7.5-325] 1 tab PO Q8H PRN PRN Reason: Pain Temazepam [Restoril] 30 mg PO HS Mirtazapine [Remeron] 30 mg PO HS Umeclidinium Brm/Vilanterol Tr [Anoro Ellipta 62.5-25 Mcg INH] 1 puff INHALATION RT-DAILY Discharge Medication List Propranolol HCl [Inderal LA] 160 mg PO HS@199903/07/14 [History] Topiramate [Topamax] 200 mg PO BID 03/07/14 [History] Levothyroxine Sodium [Synthroid] 100 mcg PO DAILY@0800 07/02/16 [History] Omeprazole [PriLOSEC] 40 mg PO DAILY@0800 07/07/17 [History] Rivaroxaban [Xarelto] 20 mg PO DAILY@0800 02/03/18 [History] Magnesium Oxide [Mag-Ox] 250 mg PO DAILY 04/02/18 [History] Aspirin EC [Ecotrin Low Dose] 81 mg PO DAILY 11/27/18 [History] Lacosamide [Vimpat] 150 mg PO BID 11/28/18 [History] Oxybutynin Chloride [Oxybutynin Chloride ER] 15 mg PO BID 06/08/19 [History] tiZANidine [Zanaflex] 4 mg PO BID tab 06/12/19 [Rx] Cetirizine HCl [Zyrtec] 10 mg PO DAILY 11/05/20 [History] Ferrous Sulfate [Iron (65 MG Elemental)] 325 mg PO BID 11/05/20 [History] Furosemide [Lasix] 40 mg PO DAILY 11/05/20 [History] HYDROcodone/APAP 7.5-325MG [[place] 7.5-325] 1 tab PO Q8H PRN 11/05/20 [History] Mirtazapine [Remeron] 30 mg PO HS 11/05/20 [History] Potassium Chloride ER [K-Dur 20] 20 meq PO DAILY 11/05/20 [History] Temazepam [Restoril] 30 mg PO HS 11/05/20 [History] Umeclidinium Brm/Vilanterol Tr [Anoro Ellipta 62.5-25 Mcg INH] 1 puff INHALATION RT-DAILY 11/05/20 [History] Albuterol Inhaler [Ventolin Hfa Inhaler] 2 puff INHALATION RT-QID #1 inh 11/06/20 [Rx] Ascorbic Acid [Vitamin C] 500 mg PO BID tab 11/06/20 [Rx] Cholecalciferol [Vitamin D3 (25 Mcg = 1000 Iu)] 50 mcg PO DAILY tablet 11/06/20 [Rx] Dexamethasone [Decadron] 6 mg PO DAILY #8 tablet 11/06/20 [Rx] Zinc Sulfate [Orazinc] 220 mg PO DAILY #30 cap 11/06/20 [Rx] Follow up Appointment(s)/Referral(s): Keith Bowers MD [Primary Care Provider] - 3 Days
[2020-11-07 10:14] LABS: Anisocytosis Slight; Basophils % (A) 1 %; Eosinophils % (A) 0 %; Hypochromasia Marked; Lymphocytes # (A) 0.8 k/uL (1.0-4.8); Lymphocytes % (A) 12 %; MCH 21.8 pg (25.0-35.0); MCHC 29.8 g/dL (31.0-37.0); MCV 73.3 fL (80.0-100.0); Mean Platelet Volume 7.9; Microcytosis Moderate; Monocytes # (A) 0.3 k/uL (0-1.0); Monocytes % (A) 5 %; Neutrophils # (A) 5.2 k/uL (1.3-7.7); Neutrophils % (A) 82 %; Platelet Count 230 k/uL (150-450); Poikilocytosis Slight; RBC 3.69 m/uL (3.80-5.40); WBC 6.3 k/uL (3.8-10.6)
[2020-11-07 10:24] LABS: African American GFR (CKD) >90 (>60 ml/min/1.73 sqM); Anion Gap 9 mmol/L; Blood Urea Nitrogen 11 mg/dL (7-17); Calcium 8.2 mg/dL (8.4-10.2); Carbon Dioxide 19 mmol/L (22-30); Chloride 112 mmol/L (98-107); Glucose 91 mg/dL (74-99); Non-African American GFR(CKD) >90 (>60 ml/min/1.73 sqM); Potassium 3.5 mmol/L (3.5-5.1); Sodium 140 mmol/L (137-145)
[2020-11-07 13:58] VITALS: BMI 32.5
== END 2020-11-07 17:00 | disposition home health service (06) | DRG 177 ==
LOC: EC 11:35 → 6NMEDSUR 15:55 → 1SOBS 11-06 08:00 → OBSVTOIN 11-06 11:43
PROVIDERS: ADMIT Family Medicine; ATTEND Family Medicine
PROC: XW033F6 Introduction of Bamlanivimab Monoclonal Antibody into Peripheral Vein, Percutaneous Approach, New Technology Group 6 (ICD-10-PCS; principal; 2020-11-06)
DX: U07.1 COVID-19 (principal); J12.82 Pneumonia due to coronavirus disease 2019; I69.354 Hemiplegia and hemiparesis following cerebral infarction affecting left non-dominant side; J44.0 Chronic obstructive pulmonary disease with (acute) lower respiratory infection; I73.9 Peripheral vascular disease, unspecified; K21.9 Gastro-esophageal reflux disease without esophagitis; N31.9 Neuromuscular dysfunction of bladder, unspecified; D63.8 Anemia in other chronic diseases classified elsewhere; E03.9 Hypothyroidism, unspecified; E78.5 Hyperlipidemia, unspecified; F32.9 Major depressive disorder, single episode, unspecified; F41.9 Anxiety disorder, unspecified; F40.240 Claustrophobia; G35 Multiple sclerosis; G40.909 Epilepsy, unspecified, not intractable, without status epilepticus; I25.10 Atherosclerotic heart disease of native coronary artery without angina pectoris; I25.2 Old myocardial infarction; G89.29 Other chronic pain; M54.5 Low back pain; G43.909 Migraine, unspecified, not intractable, without status migrainosus; Q24.9 Congenital malformation of heart, unspecified; M75.92 Shoulder lesion, unspecified, left shoulder; Z99.3 Dependence on wheelchair; Z79.01 Long term (current) use of anticoagulants; Z79.82 Long term (current) use of aspirin; Z79.890 Hormone replacement therapy; Z79.899 Other long term (current) drug therapy; Z82.49 Family history of ischemic heart disease and other diseases of the circulatory system; Z83.3 Family history of diabetes mellitus; Z85.3 Personal history of malignant neoplasm of breast; Z85.41 Personal history of malignant neoplasm of cervix uteri; Z86.718 Personal history of other venous thrombosis and embolism; Z87.820 Personal history of traumatic brain injury; Z87.891 Personal history of nicotine dependence; Z90.710 Acquired absence of both cervix and uterus; Z90.49 Acquired absence of other specified parts of digestive tract; Z90.89 Acquired absence of other organs; Z88.8 Allergy status to other drugs, medicaments and biological substances; Z92.21 Personal history of antineoplastic chemotherapy; Z86.14 Personal history of Methicillin resistant Staphylococcus aureus infection
CPT/HCPCS: 36415; 71045; 71275; 80048; 80053; 83605; 83615; 83735; 84484; 85025; 85379; 85610; 85730; 86140; 87040; 87635; 93005; 94640; 96361; 96374; 96375; 99285

== ENCOUNTER 2021-01-04 17:33 | Emergency (ER) | payer MEDICARE, OTHER ==
[2021-01-04] MEDS ORDERED: MORPHINE SULFATE 4 MG/ML SYRINGE IM STA (18:32)
[2021-01-04] MEDS ORDERED: LIDOCAINE URO-JET JELLY 2% 5 ML KIT URETHRAL ONE (18:32)
--- NOTE | 2021-01-04 19:29 | ED ---
Female Urogenital HPI - General Chief complaint: Urogenital Stated complaint: catheter problems Time Seen by Provider: 01/04/21 18:12 Source: patient, EMS Mode of arrival: EMS Limitations: no limitations - History of Present Illness Initial comments: Is a 55-year-old female to history of multiple sclerosis and suprapubic catheter. She presents emergency department because her Laureano catheter seems to be stuck in the suprapubic tract. She states that she is due to have her Laureano exchanged however the nurse where she lives with having a difficult time removing it so she was sent to the emergency department. She states that the last time this happened they pulled really hard and she had quite a bit of pain and there is tissue. She decided come emergency department. She denies any fevers or chills. The patient does take Percocet however states that this is not improved the pain in the suprapubic region. No other complaints. - Related Data Home Medications Medication Instructions Recorded Confirmed Propranolol HCl [Inderal LA] 160 mg PO HS@199903/07/14 11/05/20 Topiramate [Topamax] 200 mg PO BID 03/07/14 11/05/20 Levothyroxine Sodium [Synthroid] 100 mcg PO DAILY@0807/02/16 11/05/20 Omeprazole [PriLOSEC] 40 mg PO DAILY@0807/07/17 11/05/20 Rivaroxaban [Xarelto] 20 mg PO DAILY@0800 02/03/18 11/05/20 Magnesium Oxide [Mag-Ox] 250 mg PO DAILY 04/02/18 11/05/20 Aspirin EC [Ecotrin Low Dose] 81 mg PO DAILY 11/27/18 11/05/20 Lacosamide [Vimpat] 150 mg PO BID 11/28/18 11/05/20 Oxybutynin Chloride [Oxybutynin 15 mg PO BID 06/08/19 11/05/20 Chloride ER] Cetirizine HCl [Zyrtec] 10 mg PO DAILY 11/05/20 11/05/20 Ferrous Sulfate [Iron (65 MG 325 mg PO BID 11/05/20 11/05/20 Elemental)] Furosemide [Lasix] 40 mg PO DAILY 11/05/20 11/05/20 HYDROcodone/APAP 7.5-325MG [[place] 1 tab PO Q8H PRN 11/05/20 11/05/20 7.5-325] Mirtazapine [Remeron] 30 mg PO HS 11/05/20 11/05/20 Potassium Chloride ER [K-Dur 20] 20 meq PO DAILY 11/05/20 11/05/20 Temazepam [Restoril] 30 mg PO HS 11/05/20 11/05/20 Umeclidinium Brm/Vilanterol Tr 1 puff INHALATION RT-DAILY 11/05/20 11/05/20 [Anoro Ellipta 62.5-25 Mcg INH] Previous Rx's Medication Instructions Recorded tiZANidine [Zanaflex] 4 mg PO BID tab 06/12/19 Albuterol Inhaler [Ventolin Hfa 2 puff INHALATION RT-QID #1 inh 11/06/20 Inhaler] Ascorbic Acid [Vitamin C] 500 mg PO BID tab 11/06/20 Cholecalciferol [Vitamin D3 (25 50 mcg PO DAILY tablet 11/06/20 Mcg = 1000 Iu)] Dexamethasone [Decadron] 6 mg PO DAILY #8 tablet 11/06/20 Zinc Sulfate [Orazinc] 220 mg PO DAILY #30 cap 11/06/20 Allergies Allergy/AdvReac Type Severity Reaction Status Date / Time guaifenesin [From Entex LA] Allergy Anaphylaxis Verified 01/04/21 17:51 phenylephrine HCl Allergy Anaphylaxis Verified 01/04/21 17:51 [From Entex LA] phenylpropanolamine HCl Allergy Anaphylaxis Verified 01/04/21 17:51 [From Entex LA] Sulfa (Sulfonamide Allergy Anaphylaxis Verified 01/04/21 17:51 Antibiotics) tuberculin, purified protein Allergy Anaphylaxis Verified 01/04/21 17:51 deriva [Tuberculin,Purif.Prot.Deriv.] pseudoephedrine HCl AdvReac Swelling Verified 01/04/21 17:51 [From Mucinex D] Review of Systems ROS Statement: Those systems with pertinent positive or pertinent negative responses have been documented in the HPI. ROS Other: All systems not noted in ROS Statement are negative. Past Medical History Past Medical History: Cancer, COPD, CVA/TIA, Deep Vein Thrombosis (DVT), Hyperlipidemia, Myocardial Infarction ([place]), Neurologic Disorder, Seizure Disorder, Thyroid Disorder, Vascular Disorder Additional Past Medical History / Comment(s): Multiple sclerosis, CVA in 205 w ith weakness L arm and paralysis L leg, wheelchair bound, suprapubic catheter- last changed 05/31/19, R breast cancer with lumpectomy, cervical cancer with surgery/chemo, DVT L leg, last seizure 08/2018, PVD, chronic low back pain, DDD, migraines, concussion in 2013, L proximal humerus/shoulder osteomyelitis, current L shoulder lesion-to have follow up, past R leg cellulitis, pt was born with heart malformation/defect, hypothyroid. Last Myocardial Infarction Date:: 2004 History of Any Multi-Drug Resistant Organisms: MRSA Date of last positivie culture/infection: 06/14/15 MDRO Source:: sputum Past Surgical History: Back Surgery, Bladder Surgery, Breast Surgery, Cholecys tectomy, Heart Catheterization, Hysterectomy, Orthopedic Surgery, Tonsillectomy Additional Past Surgical History / Comment(s): Open subcutaneous skin/scar tissue release L arm, L upper arm lesion removed, sinus surgery FOR DEVIATED SEPTUM; Rt breast lumpectomy; Rt knee surgery x 4 ARTHROSCOPIES AND ACL RECONSTRUCTION; LAPAROSCOPY, EXC ADHESIONS. Suprapubic Cath.,07-28-17 egd w/ stomach bx-neg, back pain injections, spinal stimulator, PICCs, lt subclavian port a cath implanted on 01-13-18 pt stated "it's never been accessed". Past Anesthesia/Blood Transfusion Reactions: No Reported Reaction Additional Past Anesthesia/Blood Transfusion Reaction / Comment(s): CLAUSTROPHOBIA Past Psychological History: No Psychological Hx Reported Smoking Status: Former smoker Past Alcohol Use History: None Reported Past Drug Use History: None Reported - Past Family History Father Family Medical History: Diabetes Mellitus, Myocardial Infarction ([place]), Osteoarthritis ([place]) Additional Family Medical History / Comment(s): Father fell and suffered brain edema and . He had CABG. He at the age of 77yrs Mother Family Medical History: Myocardial Infarction ([place]) Additional Family Medical History / Comment(s): Mother of a [place] at the age of 70 General Exam - General Exam Comments Initial Comments: Constitutional: Awake alert Appears comfortable Head: Normocephalic atraumatic Eyes: no conjunctival injection No scleral icterus EOMI Neck: No JVD Supple Heart: Regular rate rhythm normal S1-S2 no murmurs Lungs: Clear to auscultation bilaterally No wheezing No rales Abdomen: Soft nondistended nontender, suprapubic catheter tract without surrounding erythema or any discharge. Laureano catheter is still inserted. Extremities: Non edematous DP pulses intact Radial pulses intact Neuro: A&Ox3 No focal neurologic deficits Psych: Appropriate mood and affect Limitations: no limitations Course Vital Signs 01/04/21 01/04/21 17:36 21:14 Temperature 98.2 F 98.1 F Pulse Rate 81 70 Respiratory 18 17 Rate Blood Pressure 137/75 124/78 O2 Sat by Pulse 97 98 Oximetry - Reevaluation(s) Reevaluation #1: 01/04/21 20:21 Suprapubic cath exchanged at bedside with 20F 30cc balloon. Pt had some discomfort with insertion. Was some mild bleeding when previous catheter removed. Medical Decision Making - Medical Decision Making This 55-year-old female who presented for exchange of her suprapubic Laureano catheter. 4 mg of IM morphine and lidocaine solution were used to assist with removal of the previous suprapubic catheter. There was a little bit of bleeding after this. A new catheter was then inserted. 20-Uzbek with 30 mL balloon. The patient tolerated this well. Urine was seen within the tubing prior to discharge. The patient was discharged to home and encouraged to follow up closely with her primary doctor or urologist if she has any persisting symptoms. All questions were answered. Disposition Clinical Impression: Catheter (urine) change required, Suprapubic catheter dysfunction Disposition: HOME SELF-CARE Condition: Stable Instructions (If sedation given, give patient instructions): How to Care for Your Suprapubic Catheter (DC) Is patient prescribed a controlled substance at d/c from ED?: No Referrals: Keith Bowers MD [Primary Care Provider] - 1-2 days
[2021-01-04 21:17] VITALS: BP 124/78; PULSE 70; RESP 17; TEMP 98.1
== END 2021-01-04 21:15 | disposition home or self-care (01) ==
LOC: EC 17:33
DX: Z46.6 Encounter for fitting and adjustment of urinary device (principal); T83.028A Displacement of other urinary catheter, initial encounter; J44.9 Chronic obstructive pulmonary disease, unspecified; E78.5 Hyperlipidemia, unspecified; E03.9 Hypothyroidism, unspecified; G40.909 Epilepsy, unspecified, not intractable, without status epilepticus; I25.2 Old myocardial infarction; Z79.52 Long term (current) use of systemic steroids; Z79.82 Long term (current) use of aspirin; Z79.890 Hormone replacement therapy; Z79.899 Other long term (current) drug therapy; Z87.891 Personal history of nicotine dependence; Z82.49 Family history of ischemic heart disease and other diseases of the circulatory system; Z83.3 Family history of diabetes mellitus; Z85.3 Personal history of malignant neoplasm of breast; Z85.41 Personal history of malignant neoplasm of cervix uteri; Z86.718 Personal history of other venous thrombosis and embolism; Z86.73 Personal history of transient ischemic attack (TIA), and cerebral infarction without residual deficits; Z88.2 Allergy status to sulfonamides
CPT/HCPCS: 51702; 99284; 96372; J2270

== ENCOUNTER 2021-03-26 11:54 | Day surgery (SDC) | payer MEDICARE, OTHER ==
[2021-03-22 15:09] VITALS: BMI 29.2
[~2021-03-26 11:54] MED LIST changes: -DEXAMETHASONE SOD PHOSPHATE 10 MG/ML 1 ML VIAL IV ONE; -HYDROmorphone 0.5 MG/0.5 ML SYRINGE IVP PRN; -KETOROLAC 30 MG/ML 1 ML VIAL IVP SCH; -LIDOCAINE 1% 20 ML VIAL (10MG/ML) FOR IV START INTRADERMA PRN; -ONDANSETRON 4 MG/2 ML VIAL IVP ONE; -ONDANSETRON 4 MG/2 ML VIAL IVP PRN; -Pre Op ABX Message 1 EACH MISC MISCELLANE ONE
[2021-03-26 13:28] VITALS: TEMP 98.6
[2021-03-26] MEDS ORDERED: PROPOFOL 10 MG/ML 20 ML VIAL IV ONE (15:00)
[2021-03-26] MEDS ORDERED: LIDOCAINE 1% INJ 10MG/ML (20 ML MDV) ONE (15:00)
--- NOTE | 2021-03-26 15:06 | P.GSHP ---
History of Present Illness H&P Date: 03/26/21 Chief Complaint: Diarrhea 76-year-old female who presents today for colonoscopy. She is additionally diarrhea. Past Medical History Past Medical History: Cancer, COPD, CVA/TIA, Deep Vein Thrombosis (DVT), Hyperlipidemia, Myocardial Infarction ([place]), Neurologic Disorder, Seizure Disorder, Thyroid Disorder, Vascular Disorder Additional Past Medical History / Comment(s): Multiple sclerosis, TIA 2003., CVA in 2014 with weakness L arm and paralysis L leg, wheelchair bound (able to stand to transfer)., suprapubic catheter- changed q 2 weeks., R breast cancer with lumpectomy, cervical cancer with surgery/chemo ()., DVT L leg, last seizure 08/2018, PVD, chronic low back pain, DDD, migraines, fall & concussion in 2018, L proximal humerus/shoulder osteomyelitis., Hx R leg cellulitis, born with heart malformation/defect, hypothyroid., has port-a-cath., had new strain of COVID in October and was hospitalized for 3 days. Last Myocardial Infarction Date:: 2004 History of Any Multi-Drug Resistant Organisms: MRSA Date of last positivie culture/infection: 06/14/15 MDRO Source:: sputum Past Surgical History: Back Surgery, Bladder Surgery, Breast Surgery, Cholecystectomy, Heart Catheterization, Hysterectomy, Orthopedic Surgery, Tonsillectomy Additional Past Surgical History / Comment(s): Open subcutaneous skin/scar tissue release L arm, L upper arm lesion removed, DEVIATED SEPTUM; Rt breast lumpectomy; Rt knee surgery x 4 ARTHROSCOPIES AND ACL RECONSTRUCTION; LAPAROSCOPY, EXC ADHESIONS. Suprapubic Cath.,07-28-17 .,egd w/ stomach bx, back pain injections, spinal stimulator, PICCs, lt subclavian port a cath implanted on 01-13-18 Past Anesthesia/Blood Transfusion Reactions: No Reported Reaction Additional Past Anesthesia/Blood Transfusion Reaction / Comment(s): CLAUSTROPHOBIA Past Psychological History: No Psychological Hx Reported Additional Psychological History / Comment(s): Pt resides with her spouse who is also wheelchair bound. Has caregiver. Smoking Status: Former smoker Past Alcohol Use History: None Reported Additional Past Alcohol Use History / Comment(s): Quit approx 1992, started smoking at age 11. Pt was smoking 2ppd. Past Drug Use History: Marijuana Additional Drug Use History / Comment(s): no current marijuana - Past Family History Father Family Medical History: Diabetes Mellitus, Myocardial Infarction ([place]), Osteoarthritis ([place]) Additional Family Medical History / Comment(s): Father fell and suffered brain edema and . He had CABG. He at the age of 77yrs Mother Family Medical History: Myocardial Infarction ([place]) Additional Family Medical History / Comment(s): Mother of a [place] at the age of 70 Medications and Allergies Home Medications Medication Instructions Recorded Confirmed Type Propranolol HCl [Inderal LA] 160 mg PO HS 03/07/14 03/26/21 History Topiramate [Topamax] 200 mg PO BID 03/07/14 03/26/21 History Levothyroxine Sodium [Synthroid] 100 mcg PO DAILY 07/02/16 03/26/21 History Omeprazole [PriLOSEC] 40 mg PO DAILY 07/07/17 03/26/21 History Rivaroxaban [Xarelto] 20 mg PO DAILY 02/03/18 03/22/21 History Magnesium Oxide [Mag-Ox] 250 mg PO DAILY 04/02/18 03/26/21 History Lacosamide [Vimpat] 150 mg PO BID 11/28/18 03/26/21 History Oxybutynin Chloride [Oxybutynin 15 mg PO BID 06/08/19 03/26/21 History Chloride ER] tiZANidine [Zanaflex] 4 mg PO BID tab 06/12/19 03/26/21 Rx Cetirizine HCl [Zyrtec] 10 mg PO DAILY 11/05/20 03/26/21 History Furosemide [Lasix] 40 mg PO DAILY 11/05/20 03/26/21 History HYDROcodone/APAP 7.5-325MG [[place] 1 tab PO TID PRN 11/05/20 03/26/21 History 7.5-325] Mirtazapine [Remeron] 30 mg PO HS 11/05/20 03/26/21 History Potassium Chloride ER [K-Dur 20] 20 meq PO DAILY 11/05/20 03/26/21 History Temazepam [Restoril] 30 mg PO HS 11/05/20 03/26/21 History Umeclidinium Brm/Vilanterol Tr 1 puff INHALATION RT-DAILY 11/05/20 03/26/21 History [Anoro Ellipta 62.5-25 Mcg INH] Albuterol Inhaler [Ventolin Hfa 2 puff INHALATION RT-QID PRN 03/22/21 03/26/21 History Inhaler] Allergies Allergy/AdvReac Type Severity Reaction Status Date / Time silicone Allergy Unknown silicone Verified 03/26/21 13:06 catheter imbedded in tissue. guaifenesin [From Entex LA] Allergy Anaphylaxis Verified 03/26/21 13:06 phenylephrine HCl Allergy Anaphylaxis Verified 03/26/21 13:06 [From Entex LA] phenylpropanolamine HCl Allergy Anaphylaxis Verified 03/26/21 13:06 [From Entex LA] Sulfa (Sulfonamide Allergy Anaphylaxis Verified 03/26/21 13:06 Antibiotics) tuberculin, purified protein Allergy Anaphylaxis Verified 03/26/21 13:06 deriva [Tuberculin,Purif.Prot.Deriv.] pseudoephedrine HCl AdvReac Swelling Verified 03/26/21 13:06 [From Mucinex D] Surgical - Exam Vital Signs Temp Pulse Resp BP Pulse Ox 98.6 F 53 L 16 157/69 96 03/26/21 13:12 03/26/21 13:12 03/26/21 13:12 03/26/21 13:12 03/26/21 13:12 - General well developed, well nourished, no distress - Eyes PERRL - ENT normal pinna - Neck no masses - Respiratory normal expansion - Cardiovascular Rhythm: regular - Abdomen Abdomen: soft, non tender Assessment and Plan Assessment: Diarrhea. We'll perform colonoscopy.
--- NOTE | 2021-03-26 15:47 | P.OP ---
Date of Procedure: 03/26/21 Preoperative Diagnosis: Diarrhea Postoperative Diagnosis: Normal colon Rectal biopsy pathology pending Procedure(s) Performed: Colonoscopy Anesthesia: MAC Surgeon: Roland García Pathology: other (Rectum) Condition: stable Disposition: PACU Description of Procedure: The patient's placed on the endoscopy table in the lateral position. She received IV sedation. Digital rectal exam was performed which revealed no abnormalities. Flexible colonoscope was then placed patient anus and passed throughout the entire colon. The ileocecal valve visualized. Cecum, ascending and transverse colon appeared normal. In the descending colon was a few scattered diverticula. The colon appeared normal. Scope summer back the rectum was normal. Scope withdrawn. Due to the patient's symptoms of diarrhea random rectal biopsies performed. Scope was withdrawn for patient.
[2021-03-26 16:21] VITALS: BP 115/84; PULSE 64; RESP 18
== END 2021-03-26 16:15 | disposition home or self-care (01) ==
LOC: ORWHC2ENDO 11:54
PROVIDERS: ATTEND Surgery
DX: R19.7 Diarrhea, unspecified (principal); E03.9 Hypothyroidism, unspecified; E78.5 Hyperlipidemia, unspecified; G35 Multiple sclerosis; G40.909 Epilepsy, unspecified, not intractable, without status epilepticus; I25.2 Old myocardial infarction; J44.9 Chronic obstructive pulmonary disease, unspecified; Z79.899 Other long term (current) drug therapy; Z82.49 Family history of ischemic heart disease and other diseases of the circulatory system; Z83.3 Family history of diabetes mellitus; Z85.3 Personal history of malignant neoplasm of breast; Z85.41 Personal history of malignant neoplasm of cervix uteri; Z86.16 Personal history of COVID-19; Z86.718 Personal history of other venous thrombosis and embolism; Z86.73 Personal history of transient ischemic attack (TIA), and cerebral infarction without residual deficits; Z88.2 Allergy status to sulfonamides; Z90.49 Acquired absence of other specified parts of digestive tract; Z99.3 Dependence on wheelchair; Z79.01 Long term (current) use of anticoagulants; Z79.82 Long term (current) use of aspirin
CPT/HCPCS: 45380; 88305; J2001; J2704

== ENCOUNTER → 2021-04-18 | Outpatient (CLI) | payer MEDICARE, OTHER ==
--- NOTE | 2021-04-18 13:28 | MM ---
Reason for exam: screening (asymptomatic). Last mammogram was performed 8 years and 3 months ago. History: Patient has history of other cancer at age 29. Family history of premenopausal breast cancer in sister and breast cancer in maternal aunt. Benign excisional biopsy of the right breast, April 30, 2004. Physical Findings: A clinical breast exam by your physician is recommended on an annual basis and results should be correlated with mammographic findings. MG Screening Mammo w CAD Bilateral CC and MLO view(s) were taken. XCCL view(s) were taken of the right breast. Prior study comparison: January 08, 2013, bilateral digital screening mammo w/CAD. There are scattered fibroglandular densities. There are benign appearing vascular calcifications bilaterally. There is chronic tiny nodularity in the posterior right breast. There is no discrete abnormality. ASSESSMENT: Benign, BI-RAD 2 RECOMMENDATION: Routine screening mammogram of both breasts in 1 year. Manage on a clinical basis with regard to left breast pain into shoulder.
== END | disposition home or self-care (01) ==
LOC: RADMAMWWP 08:05
PROVIDERS: ATTEND Family Medicine
DX: Z12.31 Encounter for screening mammogram for malignant neoplasm of breast (principal); Z80.3 Family history of malignant neoplasm of breast
CPT/HCPCS: 77067

== ENCOUNTER → 2021-11-01 | Outpatient (CLI) | payer MEDICARE, OTHER ==
--- NOTE | 2021-11-01 12:20 | US ---
EXAMINATION TYPE: US kidneys/renal and bladder DATE OF EXAM: 11/01/2021 COMPARISON: NONE CLINICAL HISTORY: N31.9 NEUROGENIC BLADDER. MS Neurogenic bladder. EXAM MEASUREMENTS: Right Kidney: 9.7 x 4.1 x 4.2 cm Left Kidney: 10.1 x 4.0 x 4.3 cm Right Kidney: No hydronephrosis or masses seen Left Kidney: No hydronephrosis or masses seen Bladder: Has catheter in. Bilateral Jets seen: No There is no evidence for hydronephrosis at this point in time. Kidneys show normal cortical medullary differentiation. No nephrolithiasis is seen. No masses are identified. The urinary bladder is cath eter rises. IMPRESSION: Renal sizes as described
== END | disposition home or self-care (01) ==
LOC: RADUSWWP 10:19
PROVIDERS: ATTEND Urology
DX: N31.9 Neuromuscular dysfunction of bladder, unspecified (principal); G35 Multiple sclerosis
CPT/HCPCS: 76770

== ENCOUNTER 2021-12-10 13:31 | Emergency (ER) | payer MEDICARE, OTHER ==
[2021-12-10 15:00] VITALS: BP 134/83; PULSE 71; RESP 16; TEMP 98.5
[2021-12-10] MEDS ORDERED: SODIUM CHLORIDE 0.9% 500 ML 500 ML IV STA (15:54)
--- NOTE | 2021-12-10 16:17 | ED ---
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 Patient states 10 days ago she was at the urologist where they gave her some sort of injection in her left thigh. Patient is unsure what it was but she believes it was some sort of antibiotic. Patient states since her CVA in 2014 she has no feeling to her left lower extremity. Patient states she noticed an area of discoloration/bruising on her left lateral thigh on Friday and states over the last couple of days it has began to get red around the area of discoloration. She denies any warmth to the area. She denies any fever to the area. She denies any drainage or oozing from the area. Patient denies any chest pain, shortness of breath, abdominal pain, nausea, vomiting, change in bowel or bladder, change in appetite, lightheadedness, dizziness, fever, headache. She states since her stroke she has been in a wheelchair as she also has multiple sclerosis and a neurologic disorder. - Related Data Home Medications Medication Instructions Recorded Confirmed Propranolol HCl [Inderal LA] 160 mg PO HS 03/07/14 03/26/21 Topiramate [Topamax] 200 mg PO BID 03/07/14 03/26/21 Levothyroxine Sodium [Synthroid] 100 mcg PO DAILY 07/02/16 03/26/21 Omeprazole [PriLOSEC] 40 mg PO DAILY 07/07/17 03/26/21 Rivaroxaban [Xarelto] 20 mg PO DAILY 02/03/18 03/22/21 Magnesium Oxide [Mag-Ox] 250 mg PO DAILY 04/02/18 03/26/21 Lacosamide [Vimpat] 150 mg PO BID 11/28/18 03/26/21 Oxybutynin Chloride [Oxybutynin 15 mg PO BID 06/08/19 03/26/21 Chloride ER] Cetirizine HCl [Zyrtec] 10 mg PO DAILY 11/05/20 03/26/21 Furosemide [Lasix] 40 mg PO DAILY 11/05/20 03/26/21 HYDROcodone/APAP 7.5-325MG [Roundup 1 tab PO TID PRN 11/05/20 03/26/21 7.5-325] Mirtazapine [Remeron] 30 mg PO HS 11/05/20 03/26/21 Potassium Chloride ER [K-Dur 20] 20 meq PO DAILY 11/05/20 03/26/21 Temazepam [Restoril] 30 mg PO HS 11/05/20 03/26/21 Umeclidinium Brm/Vilanterol Tr 1 puff INHALATION RT-DAILY 11/05/20 03/26/21 [Anoro Ellipta 62.5-25 Mcg INH] Albuterol Inhaler [Ventolin Hfa 2 puff INHALATION RT-QID PRN 03/22/21 03/26/21 Inhaler] Previous Rx's Medication Instructions Recorded tiZANidine [Zanaflex] 4 mg PO BID tab 06/12/19 Clindamycin [Cleocin] 450 mg PO TID #60 cap 12/10/21 Allergies Allergy/AdvReac Type Severity Reaction Status Date / Time silicone Allergy Unknown silicone Verified 12/10/21 15:00 catheter imbedded in tissue. guaifenesin [From Entex LA] Allergy Anaphylaxis Verified 12/10/21 15:00 phenylephrine HCl Allergy Anaphylaxis Verified 12/10/21 15:00 [From Entex LA] phenylpropanolamine HCl Allergy Anaphylaxis Verified 12/10/21 15:00 [From Entex LA] Sulfa (Sulfonamide Allergy Anaphylaxis Verified 12/10/21 15:00 Antibiotics) tuberculin, purified protein Allergy Anaphylaxis Verified 12/10/21 15:00 deriva [Tuberculin,Purif.Prot.Deriv.] pseudoephedrine HCl AdvReac Swelling Verified 12/10/21 15:00 [From Mucinex D] Review of Systems ROS Statement: Those systems with pertinent positive or pertinent negative responses have been documented in the HPI. ROS Other: All systems not noted in ROS Statement are negative. Past Medical History Past Medical History: Cancer, COPD, CVA/TIA, Deep Vein Thrombosis (DVT), Hyperlipidemia, Myocardial Infarction (LA), Neurologic Disorder, Seizure Disorder, Thyroid Disorder, Vascular Disorder Additional Past Medical History / Comment(s): Multiple sclerosis, TIA 2004., CVA in 2014 with weakness L arm and paralysis L leg, wheelchair bound (able to stand to transfer)., suprapubic catheter- changed q 2 weeks., R breast cancer with lumpectomy, cervical cancer with surgery/chemo ()., DVT L leg, last seizure 08/2018, PVD, chronic low back pain, DDD, migraines, fall & concussion in 2019, L proximal humerus/shoulder osteomyelitis., Hx R leg cellulitis, born with heart malformation/defect, hypothyroid., has port-a-cath., had new strain of COVID in October and was hospitalized for 3 days. Last Myocardial Infarction Date:: 2004 History of Any Multi-Drug Resistant Organisms: MRSA Date of last positivie culture/infection: 06/14/15 MDRO Source:: sputum Past Surgical History: Back Surgery, Bladder Surgery, Breast Surgery, Cholecys tectomy, Heart Catheterization, Hysterectomy, Orthopedic Surgery, Tonsillectomy Additional Past Surgical History / Comment(s): Open subcutaneous skin/scar tissue release L arm, L upper arm lesion removed, DEVIATED SEPTUM; Rt breast lumpectomy; Rt knee surgery x 4 ARTHROSCOPIES AND ACL RECONSTRUCTION; LAPAROSCOPY, EXC ADHESIONS. Suprapubic Cath.,07-28-17 .,egd w/ stomach bx, back pain injections, spinal stimulator, PICCs, lt subclavian port a cath implanted on 01-13-18 Past Anesthesia/Blood Transfusion Reactions: No Reported Reaction Additional Past Anesthesia/Blood Transfusion Reaction / Comment(s): CLAUSTROPHOBIA Past Psychological History: No Psychological Hx Reported Smoking Status: Former smoker Past Alcohol Use History: None Reported Past Drug Use History: Marijuana - Past Family History Father Family Medical History: Diabetes Mellitus, Myocardial Infarction (LA), Osteoarthritis (OA) Additional Family Medical History / Comment(s): Father fell and suffered brain edema and . He had CABG. He at the age of 77yrs Mother Family Medical History: Myocardial Infarction (LA) Additional Family Medical History / Comment(s): Mother of a LA at the age of 70 General Exam Limitations: no limitations, physical limitation (Patient wheelchair that she states she has been in since at least 2014 after having a stroke.) Head exam: Present: atraumatic Eye exam: Present: normal appearance, PERRL, EOMI ENT exam: Present: normal exam, mucous membranes moist Neck exam: Present: normal inspection, full ROM. Absent: tenderness, meningismus, lymphadenopathy Respiratory exam: Present: normal lung sounds bilaterally. Absent: respiratory distress, wheezes, rales, rhonchi, stridor Cardiovascular Exam: Present: regular rate, normal rhythm, normal heart sounds. Absent: systolic murmur, diastolic murmur, rubs, gallop, clicks GI/Abdominal exam: Present: soft, normal bowel sounds. Absent: distended, tenderness, guarding, rebound, rigid Extremities exam: Present: normal inspection (Patient with discoloration to lateral left thigh. The center appears to be bruised/purple with an area of erythema surrounding. Induration in center of wound. No fluctuance noted. No warmth noted. No oozing or drainage from site. DP pulses palpable bilaterally), full ROM (Patient without sensation to left lower extremity as she has left-sided paralysis from the waist down after her CVA. She has minimal movement to left arm after CVA.), normal capillary refill. Absent: tenderness, pedal edema, joint swelling, calf tenderness Neurological exam: Present: alert, oriented X3, CN II-XII intact Psychiatric exam: Present: normal affect, normal mood Skin exam: Present: warm, dry, intact, normal color. Absent: rash Course Vital Signs 12/10/21 14:57 Temperature 98.5 F Pulse Rate 71 Respiratory 16 Rate Blood Pressure 134/83 O2 Sat by Pulse 94 L Oximetry Medical Decision Making - Medical Decision Making This 56-year-old female presents emergency Department with bruise/discoloration to lateral side of left thigh in between the hip and knee. X-ray femur left impression: No acute fracture or dislocation. Possible soft tissue inflammation along the upper left lateral thigh. ESR 35- comparable the patient's baseline. Patient without any leukocytosis. C-reactive protein 2.4- comparable to patient's baseline. Patient with bruise on lateral side of left leg between left knee and left hip. Small amount of surrounding cellulitis/erythema present. No fluctuance palpated. No warmth palpated. Patient given clindamycin 10 days and instructed to follow up with her primary care provider next 1-2 days. Strict return precautions were discussed. Patient verbally agreed to plan. Patient sent home in stable condition. Case discussed in detail my attending, . - Lab Data Result diagrams: 12/10/21 16:21 12/10/21 17:52 Lab Results 12/10/21 12/10/21 Range/Units 16:21 17:52 WBC 8.5 (3.8-10.6) k/uL RBC 4.98 (3.80-5.40) m/uL Hgb 11.0 L (11.4-16.0) gm/dL Hct 38.4 (34.0-46.0) % MCV 77.1 L (80.0-100.0) fL MCH 22.1 L (25.0-35.0) pg MCHC 28.7 L (31.0-37.0) g/dL RDW 17.6 H (11.5-15.5) % Plt Count 281 (150-450) k/uL MPV 7.3 Neutrophils % 74 % Lymphocytes % 16 % Monocytes % 5 % Eosinophils % 2 % Basophils % 1 % Neutrophils # 6.2 (1.3-7.7) k/uL Lymphocytes # 1.4 (1.0-4.8) k/uL Monocytes # 0.4 (0-1.0) k/uL Eosinophils # 0.1 (0-0.7) k/uL Basophils # 0.1 (0-0.2) k/uL Hypochromasia Marked Anisocytosis Slight Microcytosis Slight ESR 35 H (0-20) mm/hr Sodium 141 (137-145) mmol/L Potassium 4.2 (3.5-5.1) mmol/L Chloride 110 H (98-107) mmol/L Carbon Dioxide 20 L (22-30) mmol/L Anion Gap 11 mmol/L BUN 13 (7-17) mg/dL Creatinine 0.84 (0.52-1.04) mg/dL Est GFR (CKD-EPI)AfAm 90 (>60 ml/min/1.73 sqM) Est GFR (CKD-EPI)NonAf 78 (>60 ml/min/1.73 sqM) Glucose 97 (74-99) mg/dL Calcium 8.9 (8.4-10.2) mg/dL Total Bilirubin 0.2 (0.2-1.3) mg/dL AST 29 (14-36) U/L ALT 15 (4-34) U/L Alkaline Phosphatase 155 H (38-126) U/L C-Reactive Protein 2.4 H (<1.0) mg/dL Total Protein 8.2 (6.3-8.2) g/dL Albumin 4.4 (3.5-5.0) g/dL Disposition Clinical Impression: Cellulitis of left thigh Disposition: HOME SELF-CARE Condition: Stable Instructions (If sedation given, give patient instructions): Cellulitis (ED) Additional Instructions: Take clindamycin as directed 10 days. Follow-up with primary care provider next 1-2 days. Return to the emergency department with any new, worsening, or concerning symptoms. Prescriptions: Clindamycin [Cleocin] 450 mg PO TID #60 cap Is patient prescribed a controlled substance at d/c from ED?: No Referrals: Keith Bowers MD [Primary Care Provider] - 1-2 days Time of Disposition: 18:17
--- NOTE | 2021-12-10 16:30 | XR ---
EXAMINATION TYPE: XR femur LT DATE OF EXAM: 12/10/2021 CLINICAL HISTORY: Left lateral thigh infection and pain TECHNIQUE: Two views of the left femur are obtained. COMPARISON: None FINDINGS: There is no acute fracture or dislocation seen in the left femur. The left hip and knee joints appea r within normal limits. Possible soft tissue inflammation along the lateral aspect of the thigh. Nons pecific dystrophic calcifications within the subcutaneous soft tissues along the upper left lateral t high. IMPRESSION: 1. No acute fracture or dislocation. 2. Possible soft tissue inflammation along the upper left lateral thigh.
[2021-12-10 16:42] LABS: Anisocytosis Slight; Basophils # (A) 0.1 k/uL (0-0.2); Basophils % (A) 1 %; Eosinophils # (A) 0.1 k/uL (0-0.7); Eosinophils % (A) 2 %; HCT 38.4 % (34.0-46.0); Hypochromasia Marked; Lymphocytes # (A) 1.4 k/uL (1.0-4.8); Lymphocytes % (A) 16 %; MCH 22.1 pg (25.0-35.0); MCHC 28.7 g/dL (31.0-37.0); MCV 77.1 fL (80.0-100.0); Mean Platelet Volume 7.3; Microcytosis Slight; Monocytes # (A) 0.4 k/uL (0-1.0); Monocytes % (A) 5 %; Neutrophils # (A) 6.2 k/uL (1.3-7.7); Neutrophils % (A) 74 %; Platelet Count 281 k/uL (150-450); RBC 4.98 m/uL (3.80-5.40); RDW 17.6 % (11.5-15.5); WBC 8.5 k/uL (3.8-10.6)
[2021-12-10 17:32] LABS: Erythrocyte Sedimentation Rate 35 mm/hr (0-20)
[2021-12-10 18:12] LABS: Albumin 4.4 g/dL (3.5-5.0); C Reactive Protein 2.4 mg/dL (<1.0); Calcium 8.9 mg/dL (8.4-10.2); Potassium 4.2 mmol/L (3.5-5.1); Total Bilirubin 0.2 mg/dL (0.2-1.3); Total Protein 8.2 g/dL (6.3-8.2)
== END 2021-12-10 18:50 | disposition home or self-care (01) ==
LOC: EC 13:31
DX: L03.116 Cellulitis of left lower limb (principal); J44.9 Chronic obstructive pulmonary disease, unspecified; I25.2 Old myocardial infarction; G40.909 Epilepsy, unspecified, not intractable, without status epilepticus; E78.5 Hyperlipidemia, unspecified; E03.9 Hypothyroidism, unspecified; F12.90 Cannabis use, unspecified, uncomplicated; Z87.891 Personal history of nicotine dependence; Z86.73 Personal history of transient ischemic attack (TIA), and cerebral infarction without residual deficits; Z86.718 Personal history of other venous thrombosis and embolism; Z79.01 Long term (current) use of anticoagulants; Z79.890 Hormone replacement therapy; Z79.51 Long term (current) use of inhaled steroids; Z79.899 Other long term (current) drug therapy
CPT/HCPCS: 36415; 80053; 85025; 85652; 86140; 96360; 99283

== ENCOUNTER 2022-03-22 11:16 | Emergency (ER) | payer MEDICARE, OTHER ==
[2022-03-22 11:25] VITALS: TEMP 998
--- NOTE | 2022-03-22 11:59 | ED ---
General Adult HPI - General Source: patient, RN notes reviewed, old records reviewed Mode of arrival: EMS Limitations: no limitations <Deuce Berkowitz - Last Filed: 03/22/22 14:23> <Deuce Machado - Last Filed: 03/22/22 15:55> - General Chief complaint: Chest Pain Stated complaint: CHEST PAIN Time Seen by Provider: 03/22/22 11:20 - History of Present Illness Initial comments: 57-year-old female history of multiple comorbidities presenting for evaluation of substernal chest pain radiating to the left arm which is been ongoing for the past 4 days. Patient also reports increased fatigue. No fever. No significant cough or dyspnea. No lower extremity pain or swelling. Previous history of CAD and UT according to the patient. No previous stenting or bypass surgery. (Deuce Berkowitz) - Related Data Home Medications Medication Instructions Recorded Confirmed Propranolol HCl [Inderal LA] 160 mg PO HS 03/07/14 03/22/22 Topiramate [Topamax] 400 mg PO HS 03/07/14 03/22/22 Levothyroxine Sodium [Synthroid] 100 mcg PO DAILY 07/02/16 03/22/22 Omeprazole [PriLOSEC] 40 mg PO DAILY 07/07/17 03/22/22 Rivaroxaban [Xarelto] 20 mg PO DAILY 02/03/18 03/22/22 Magnesium Oxide [Mag-Ox] 250 mg PO DAILY 04/02/18 03/22/22 Lacosamide [Vimpat] 150 mg PO BID 11/28/18 03/22/22 Cetirizine HCl [Zyrtec] 10 mg PO DAILY 11/05/20 03/22/22 Furosemide [Lasix] 40 mg PO DAILY 11/05/20 03/22/22 Potassium Chloride ER [K-Dur 20] 20 meq PO DAILY 11/05/20 03/22/22 Temazepam [Restoril] 30 mg PO HS 11/05/20 03/22/22 Umeclidinium Brm/Vilanterol Tr 1 puff INHALATION RT-DAILY 11/05/20 03/22/22 [Anoro Ellipta 62.5-25 Mcg INH] Albuterol Inhaler [Ventolin Hfa 2 puff INHALATION RT-QID PRN 03/22/21 03/22/22 Inhaler] Acetaminophen with Codeine 1 tab PO QID 02/28/22 03/22/22 [Tylenol #4 Tablet] Mirtazapine [Remeron] 15 mg PO DAILY 02/28/22 03/22/22 Mirtazapine [Remeron] 30 mg PO HS 03/22/22 03/22/22 Trospium Chloride [Sanctura] 20 mg PO BID 03/22/22 03/22/22 Previous Rx's Medication Instructions Recorded tiZANidine [Zanaflex] 4 mg PO BID tab 06/12/19 Allergies Allergy/AdvReac Type Severity Reaction Status Date / Time guaifenesin [From Entex LA] Allergy Anaphylaxis Verified 03/22/22 13:14 phenylephrine HCl Allergy Anaphylaxis Verified 03/22/22 13:14 [From Entex LA] phenylpropanolamine HCl Allergy Anaphylaxis Verified 03/22/22 13:14 [From Entex LA] Sulfa (Sulfonamide Allergy Anaphylaxis Verified 03/22/22 13:14 Antibiotics) tuberculin, purified protein Allergy Anaphylaxis Verified 03/22/22 13:14 deriva [Tuberculin,Purif.Prot.Deriv.] silicone AdvReac Unknown silicone Verified 03/22/22 13:14 catheter imbedded in tissue. pseudoephedrine HCl AdvReac Anaphylaxis Verified 03/22/22 13:14 [From Mucinex D] Review of Systems ROS Other: All systems not noted in ROS Statement are negative. <Deuce Berkowitz - Last Filed: 03/22/22 14:23> ROS Other: All systems not noted in ROS Statement are negative. <Deuce Machado - Last Filed: 03/22/22 15:55> ROS Statement: Those systems with pertinent positive or pertinent negative responses have been documented in the HPI. Past Medical History Past Medical History: Cancer, Heart Failure, COPD, CVA/TIA, Deep Vein Thrombosis (DVT), Hyperlipidemia, Myocardial Infarction (UT), Neurologic Disorder, Seizure Disorder, Skin Disorder, Thyroid Disorder, Vascular Disorder Additional Past Medical History / Comment(s): Multiple sclerosis, TIA 2003., CVA in 2015 with weakness L arm and paralysis L leg, wheelchair bound (able to stand to transfer)., suprapubic catheter- changed q 2 weeks., R breast cancer with lumpectomy, cervical cancer with surgery/chemo ()., DVT L leg, last seizure 08/2018, PVD, chronic low back pain, DDD, migraines, fall & concussion in 2019, L proximal humerus/shoulder osteomyelitis., Hx R leg cellulitis, born with heart malformation/defect, hypothyroid., had new strain of COVID in October 2021 and was hospitalized for 3 days. current wound left outer thigh from an injection-being tx. by PCP Last Myocardial Infarction Date:: 2004 History of Any Multi-Drug Resistant Organisms: MRSA Date of last positivie culture/infection: 06/14/15 MDRO Source:: sputum Past Surgical History: Back Surgery, Bladder Surgery, Breast Surgery, Cholecystectomy, Heart Catheterization, Hysterectomy, Orthopedic Surgery, Tonsillectomy Additional Past Surgical History / Comment(s): Open subcutaneous skin/scar tissue release L arm, L upper arm lesion removed, DEVIATED SEPTUM; Rt breast lumpectomy; Rt knee surgery x 4 ARTHROSCOPIES AND ACL RECONSTRUCTION; LAPAROSCOPY, EXC ADHESIONS. Suprapubic Cath.,07-28-17 .,egd w/ stomach bx, back pain injections, spinal stimulator, PICCs, lt subclavian port a cath implanted on 01-13-18 Past Anesthesia/Blood Transfusion Reactions: No Reported Reaction Additional Past Anesthesia/Blood Transfusion Reaction / Comment(s): CLAUSTROPHOBIA Past Psychological History: No Psychological Hx Reported Smoking Status: Former smoker - Past Family History Father Family Medical History: Diabetes Mellitus, Myocardial Infarction (UT), Osteoarthritis (OA) Additional Family Medical History / Comment(s): Father fell and suffered brain edema and . He had CABG. He at the age of 77yrs Mother Family Medical History: Myocardial Infarction (UT) Additional Family Medical History / Comment(s): Mother of a UT at the age of 70 <Deuce Berkowitz N - Last Filed: 03/22/22 14:23> General Exam Limitations: no limitations General appearance: alert, in no apparent distress Head exam: Present: atraumatic, normocephalic Eye exam: Present: normal appearance, PERRL ENT exam: Present: normal exam Neck exam: Present: normal inspection Respiratory exam: Present: normal lung sounds bilaterally. Absent: respiratory distress, wheezes Cardiovascular Exam: Present: regular rate, normal rhythm GI/Abdominal exam: Present: soft. Absent: distended, tenderness, guarding Extremities exam: Present: normal inspection, normal capillary refill. Absent: calf tenderness Neurological exam: Present: alert, oriented X3, CN II-XII intact. Absent: motor sensory deficit Psychiatric exam: Present: anxious Skin exam: Present: warm, dry, intact. Absent: cyanosis, diaphoretic <Deuce Berkowitz - Last Filed: 03/22/22 14:23> Course <Deuce Berkowitz - Last Filed: 03/22/22 14:23> Vital Signs 03/22/22 03/22/22 03/22/22 11:19 12:05 14:15 Temperature 998 F H Pulse Rate 60 62 64 Respiratory 16 16 16 Rate Blood Pressure 103/60 113/78 91/62 O2 Sat by Pulse 97 96 98 Oximetry - Reevaluation(s) Reevaluation #1: 03/22/22 14:[address] Bowers, very familiar with this patient, will repeat troponin level and arrange for outpatient follow-up. (Deuce Berkowitz) Reevaluation #2: 03/22/22 1500 Case signed out to Dr. Machado at shift change awaiting repeat troponin and reevaluation. (Deuce Berkowitz) EKG Findings - EKG Comments: EKG Findings:: EKG: Sinus rhythm low voltage, rate of 67, RI interval 167, QRS duration 103, QTC [address] segment elevation, T-wave inversion both in the precordial leads and inferior leads. <Deuce Berkowitz - Last Filed: 03/22/22 14:23> Medical Decision Making - Lab Data Result diagrams: 03/22/22 11:30 <Deuce Berkowitz - Last Filed: 03/22/22 14:23> - Lab Data Result diagrams: 03/22/22 11:30 03/22/22 11:30 - Radiology Data Radiology results: report reviewed (Image reviewed as well as report no acute findings.), image reviewed <Deuce Machado - Last Filed: 03/22/22 15:55> - Medical Decision Making Patient was endorsed me by Dr. Berkowitz at our shift shift change pending a second troponin level. He had previously discuss the case with the patient and with Dr. Bowers. Plan was to let the patient be discharged home and follow- up in the office after repeat troponin was negative and is unchanged from the first one today. Patient is aware this he is acceptable with this. (Deuce Machado) - Lab Data Lab Results 03/22/22 03/22/22 03/22/22 Range/Units 11:30 11:30 11:30 WBC 4.4 (3.8-10.6) k/uL RBC 4.44 (3.80-5.40) m/uL Hgb 10.7 L (11.4-16.0) gm/dL Hct 35.1 (34.0-46.0) % MCV 79.0 L (80.0-100.0) fL MCH 24.0 L (25.0-35.0) pg MCHC 30.4 L (31.0-37.0) g/dL RDW 17.6 H (11.5-15.5) % Plt Count 220 (150-450) k/uL MPV 7.2 Neutrophils % 66 % Lymphocytes % 23 % Monocytes % 5 % Eosinophils % 3 % Basophils % 2 % Neutrophils # 2.9 (1.3-7.7) k/uL Lymphocytes # 1.0 (1.0-4.8) k/uL Monocytes # 0.2 (0-1.0) k/uL Eosinophils # 0.1 (0-0.7) k/uL Basophils # 0.1 (0-0.2) k/uL Hypochromasia Marked Anisocytosis Slight Microcytosis Slight PT 10.4 (9.0-12.0) sec INR 0.9 (<1.2) APTT 31.4 H (22.0-30.0) sec Sodium 142 (137-145) mmol/L Potassium 3.8 (3.5-5.1) mmol/L Chloride 111 H (98-107) mmol/L Carbon Dioxide 18 L (22-30) mmol/L Anion Gap 13 mmol/L BUN 9 (7-17) mg/dL Creatinine 0.63 (0.52-1.04) mg/dL Est GFR (CKD-EPI)AfAm >90 (>60 ml/min/1.73 sqM) Est GFR (CKD-EPI)NonAf >90 (>60 ml/min/1.73 sqM) Glucose 97 (74-99) mg/dL Calcium 8.8 (8.4-10.2) mg/dL Magnesium 2.0 (1.6-2.3) mg/dL Total Bilirubin 0.2 (0.2-1.3) mg/dL AST 24 (14-36) U/L ALT 26 (4-34) U/L Alkaline Phosphatase 156 H (38-126) U/L Troponin I (0.000-0.034) ng/mL NT-Pro-B Natriuret Pep pg/mL Total Protein 7.0 (6.3-8.2) g/dL Albumin 3.7 (3.5-5.0) g/dL Lipase 77 (23-300) U/L 03/22/22 03/22/22 03/22/22 Range/Units 11:30 11:30 14:50 WBC (3.8-10.6) k/uL RBC (3.80-5.40) m/uL Hgb (11.4-16.0) gm/dL Hct (34.0-46.0) % MCV (80.0-100.0) fL MCH (25.0-35.0) pg MCHC (31.0-37.0) g/dL RDW (11.5-15.5) % Plt Count (150-450) k/uL MPV Neutrophils % % Lymphocytes % % Monocytes % % Eosinophils % % Basophils % % Neutrophils # (1.3-7.7) k/uL Lymphocytes # (1.0-4.8) k/uL Monocytes # (0-1.0) k/uL Eosinophils # (0-0.7) k/uL Basophils # (0-0.2) k/uL Hypochromasia Anisocytosis Microcytosis PT (9.0-12.0) sec INR (<1.2) APTT (22.0-30.0) sec Sodium (137-145) mmol/L Potassium (3.5-5.1) mmol/L Chloride (98-107) mmol/L Carbon Dioxide (22-30) mmol/L Anion Gap mmol/L BUN (7-17) mg/dL Creatinine (0.52-1.04) mg/dL Est GFR (CKD-EPI)AfAm (>60 ml/min/1.73 sqM) Est GFR (CKD-EPI)NonAf (>60 ml/min/1.73 sqM) Glucose (74-99) mg/dL Calcium (8.4-10.2) mg/dL Magnesium (1.6-2.3) mg/dL Total Bilirubin (0.2-1.3) mg/dL AST (14-36) U/L ALT (4-34) U/L Alkaline Phosphatase (38-126) U/L Troponin I <0.012 <0.012 (0.000-0.034) ng/mL NT-Pro-B Natriuret Pep 180 pg/mL Total Protein (6.3-8.2) g/dL Albumin (3.5-5.0) g/dL Lipase (23-300) U/L Disposition <Deuce Berkowitz - Last Filed: 03/22/22 14:23> Is patient prescribed a controlled substance at d/c from ED?: No Decision Date: 03/22/22 Decision Time: 15:55 <Deuce Machado - Last Filed: 03/22/22 15:55> Clinical Impression: Atypical chest pain Disposition: HOME SELF-CARE Condition: Good Instructions (If sedation given, give patient instructions): Chest Pain (ED) Referrals: Keith Bowers MD [Primary Care Provider] - 1-2 days
[2022-03-22 12:11] LABS: Anisocytosis Slight; Basophils # (A) 0.1 k/uL (0-0.2); Basophils % (A) 2 %; Eosinophils # (A) 0.1 k/uL (0-0.7); Eosinophils % (A) 3 %; HCT 35.1 % (34.0-46.0); HGB 10.7 gm/dL (11.4-16.0); Hypochromasia Marked; Lymphocytes % (A) 23 %; MCHC 30.4 g/dL (31.0-37.0); Mean Platelet Volume 7.2; Microcytosis Slight; Monocytes # (A) 0.2 k/uL (0-1.0); Monocytes % (A) 5 %; Neutrophils # (A) 2.9 k/uL (1.3-7.7); Neutrophils % (A) 66 %; Platelet Count 220 k/uL (150-450); RBC 4.44 m/uL (3.80-5.40); RDW 17.6 % (11.5-15.5); WBC 4.4 k/uL (3.8-10.6)
[2022-03-22 12:28] LABS: INR 0.9 (<1.2); Partial Thromboplastin Time 31.4 sec (22.0-30.0); Prothrombin Time 10.4 sec (9.0-12.0)
--- NOTE | 2022-03-22 13:55 | XR ---
EXAMINATION TYPE: XR chest 2V DATE OF EXAM: 03/22/2022 COMPARISON: 03/01/2022 HISTORY: Shortness of breath TECHNIQUE: Frontal and lateral views of the chest are obtained. FINDINGS: Scattered senescent parenchymal changes noted. Hyperinflation compatible with COPD. No evidence for infiltrate. No evidence for atelectasis. post-op RT shoulder portable Heart size is stable. Mediastinal structures are stable and grossly unremarkable. No evidence for hilar prominence. Degenerative changes dorsal spine. IMPRESSION: 1. post-op RT shoulder portable
[2022-03-22] MEDS ORDERED: SODIUM CHLORIDE 0.9% 500 ML 500 ML IV ONE (14:24)
[2022-03-22 14:33] LABS: ALT 26 U/L (4-34); AST 24 U/L (14-36); African American GFR (CKD) >90 (>60 ml/min/1.73 sqM); Albumin 3.7 g/dL (3.5-5.0); Alkaline Phosphatase 156 U/L (38-126); Anion Gap 13 mmol/L; Blood Urea Nitrogen 9 mg/dL (7-17); Calcium 8.8 mg/dL (8.4-10.2); Carbon Dioxide 18 mmol/L (22-30); Chloride 111 mmol/L (98-107); Glucose 97 mg/dL (74-99); Lipase 77 U/L (23-300); Non-African American GFR(CKD) >90 (>60 ml/min/1.73 sqM); Potassium 3.8 mmol/L (3.5-5.1); Sodium 142 mmol/L (137-145); Total Bilirubin 0.2 mg/dL (0.2-1.3)
[2022-03-22 17:29] VITALS: PULSE 65
[2022-03-22 17:55] VITALS: BP 145/65; RESP 16
== END 2022-03-22 17:55 | disposition home or self-care (01) ==
LOC: EC 11:16
DX: R07.89 Other chest pain (principal); J44.9 Chronic obstructive pulmonary disease, unspecified; I11.0 Hypertensive heart disease with heart failure; I50.9 Heart failure, unspecified; E78.5 Hyperlipidemia, unspecified; I25.2 Old myocardial infarction; E07.9 Disorder of thyroid, unspecified; Z88.8 Allergy status to other drugs, medicaments and biological substances; Z88.1 Allergy status to other antibiotic agents; Z88.2 Allergy status to sulfonamides; Z86.73 Personal history of transient ischemic attack (TIA), and cerebral infarction without residual deficits; Z86.16 Personal history of COVID-19; Z79.899 Other long term (current) drug therapy; Z79.890 Hormone replacement therapy; Z79.51 Long term (current) use of inhaled steroids; Z79.02 Long term (current) use of antithrombotics/antiplatelets
CPT/HCPCS: 36415; 71046; 80053; 83690; 83735; 83880; 84484; 85025; 85610; 85730; 93005; 99285

== ENCOUNTER 2022-04-29 14:26 | Emergency (ER) | payer MEDICARE, OTHER ==
[2022-04-29 14:38] VITALS: TEMP 98
[2022-04-29] MEDS ORDERED: SODIUM CHLORIDE 0.9% 1,000 ML IV STA (18:47)
[2022-04-29 20:14] LABS: Anisocytosis Slight; Basophils # (A) 0.1 k/uL (0-0.2); Basophils % (A) 1 %; Eosinophils # (A) 0.2 k/uL (0-0.7); Eosinophils % (A) 2 %; HCT 34.1 % (34.0-46.0); HGB 10.6 gm/dL (11.4-16.0); Hypochromasia Marked; Lymphocytes # (A) 1.3 k/uL (1.0-4.8); Lymphocytes % (A) 12 %; MCH 25.1 pg (25.0-35.0); MCHC 31.2 g/dL (31.0-37.0); MCV 80.4 fL (80.0-100.0); Mean Platelet Volume 8.9; Microcytosis Slight; Monocytes # (A) 0.4 k/uL (0-1.0); Monocytes % (A) 4 %; Neutrophils # (A) 8.6 k/uL (1.3-7.7); Neutrophils % (A) 80 %; Platelet Count 278 k/uL (150-450); RBC 4.24 m/uL (3.80-5.40); RDW 17.5 % (11.5-15.5); WBC 10.8 k/uL (3.8-10.6)
[2022-04-29 20:26] LABS: ALT 19 U/L (4-34); AST 29 U/L (14-36); African American GFR (CKD) >90 (>60 ml/min/1.73 sqM); Albumin 4.3 g/dL (3.5-5.0); Alkaline Phosphatase 142 U/L (38-126); Anion Gap 13 mmol/L; Blood Urea Nitrogen 9 mg/dL (7-17); C Reactive Protein 2.2 mg/dL (<1.0); Calcium 8.8 mg/dL (8.4-10.2); Carbon Dioxide 20 mmol/L (22-30); Chloride 105 mmol/L (98-107); Glucose 90 mg/dL (74-99); Non-African American GFR(CKD) 80 (>60 ml/min/1.73 sqM); Potassium 3.8 mmol/L (3.5-5.1); Sodium 138 mmol/L (137-145); Total Bilirubin 0.3 mg/dL (0.2-1.3); Total Protein 7.6 g/dL (6.3-8.2)
[2022-04-29 20:31] LABS: Partial Thromboplastin Time 27.3 sec (22.0-30.0)
--- NOTE | 2022-04-29 20:35 | ED ---
GI Bleed HPI - General Chief complaint: GI Bleed Stated complaint: Rectal Bleeding Time Seen by Provider: 04/29/22 18:37 Source: patient Mode of arrival: ambulatory Limitations: no limitations - History of Present Illness Initial comments: Patient is a 57-year-old female history of MS presenting with chief complaint of rectal bleeding. Patient states that she has had ongoing rectal bleeding since February. Patient does not follow with GI. Patient is on Xarelto. She denies any abdominal pain, chest pain, difficulty breathing, history of inflammatory bowel disease, nausea, vomiting, hematemesis, melena, fever, chills, palpitations, weakness. - Related Data Home Medications Medication Instructions Recorded Confirmed Propranolol HCl [Inderal LA] 160 mg PO HS 03/07/14 04/29/22 Topiramate [Topamax] 400 mg PO HS 03/07/14 04/29/22 Levothyroxine Sodium [Synthroid] 100 mcg PO DAILY 07/02/16 04/29/22 Omeprazole [PriLOSEC] 40 mg PO DAILY 07/07/17 04/29/22 Rivaroxaban [Xarelto] 20 mg PO DAILY 02/03/18 04/29/22 Magnesium Oxide [Mag-Ox] 250 mg PO DAILY 04/02/18 04/29/22 Lacosamide [Vimpat] 150 mg PO BID 11/28/18 04/29/22 Cetirizine HCl [Zyrtec] 10 mg PO DAILY 11/05/20 04/29/22 Furosemide [Lasix] 40 mg PO DAILY 11/05/20 04/29/22 Potassium Chloride ER [K-Dur 20] 20 meq PO DAILY 11/05/20 04/29/22 Temazepam [Restoril] 30 mg PO HS 11/05/20 04/29/22 Umeclidinium Brm/Vilanterol Tr 1 puff INHALATION RT-DAILY 11/05/20 04/29/22 [Anoro Ellipta 62.5-25 Mcg INH] Albuterol Inhaler [Ventolin Hfa 2 puff INHALATION RT-QID PRN 03/22/21 04/29/22 Inhaler] Acetaminophen with Codeine 1 tab PO QID 02/28/22 04/29/22 [Tylenol #4 Tablet] Mirtazapine [Remeron] 15 mg PO DAILY 02/28/22 04/29/22 Mirtazapine [Remeron] 30 mg PO HS 03/22/22 04/29/22 Trospium Chloride [Sanctura] 20 mg PO BID 03/22/22 04/29/22 Rosuvastatin [Crestor] 10 mg PO DAILY 04/29/22 04/29/22 modafiniL [Provigil] 200 mg PO DAILY 04/29/22 04/29/22 Previous Rx's Medication Instructions Recorded tiZANidine [Zanaflex] 4 mg PO BID tab 06/12/19 Allergies Allergy/AdvReac Type Severity Reaction Status Date / Time guaifenesin [From Entex LA] Allergy Anaphylaxis Verified 04/29/22 22:31 phenylephrine HCl Allergy Anaphylaxis Verified 04/29/22 22:31 [From Entex LA] phenylpropanolamine HCl Allergy Anaphylaxis Verified 04/29/22 22:31 [From Entex LA] Sulfa (Sulfonamide Allergy Anaphylaxis Verified 04/29/22 22:31 Antibiotics) tuberculin, purified protein Allergy Anaphylaxis Verified 04/29/22 22:31 deriva [Tuberculin,Purif.Prot.Deriv.] silicone AdvReac Unknown silicone Verified 04/29/22 22:31 catheter imbedded in tissue. pseudoephedrine HCl AdvReac Anaphylaxis Verified 04/29/22 22:31 [From Mucinex D] Review of Systems ROS Statement: Those systems with pertinent positive or pertinent negative responses have been documented in the HPI. ROS Other: All systems not noted in ROS Statement are negative. Past Medical History Past Medical History: Cancer, Heart Failure, COPD, CVA/TIA, Deep Vein Thrombosis (DVT), Hyperlipidemia, Myocardial Infarction ([place]), Neurologic Disorder, Seizure Disorder, Skin Disorder, Thyroid Disorder, Vascular Disorder Additional Past Medical History / Comment(s): Multiple sclerosis, TIA 2004., CVA in 2014 with weakness L arm and paralysis L leg, wheelchair bound (able to stand to transfer)., suprapubic catheter- changed q 2 weeks., R breast cancer with lumpectomy, cervical cancer with surgery/chemo ()., DVT L leg, last seizure 08/2018, PVD, chronic low back pain, DDD, migraines, fall & concussion in 2019, L proximal humerus/shoulder osteomyelitis., Hx R leg cellulitis, born with heart malformation/defect, hypothyroid., had new strain of COVID in October 2021 and was hospitalized for 3 days. current wound left outer thigh from an injection-being tx. by PCP Last Myocardial Infarction Date:: 2004 History of Any Multi-Drug Resistant Organisms: None Reported, MRSA Date of last positivie culture/infection: 06/14/15 MDRO Source:: sputum Past Surgical History: Back Surgery, Bladder Surgery, Breast Surgery, Cholecystectomy, Heart Catheterization, Hysterectomy, Orthopedic Surgery, Tonsillectomy Additional Past Surgical History / Comment(s): Open subcutaneous skin/scar tissue release L arm, L upper arm lesion removed, DEVIATED SEPTUM; Rt breast lumpectomy; Rt knee surgery x 4 ARTHROSCOPIES AND ACL RECONSTRUCTION; LAPAROSCOPY, EXC ADHESIONS. Suprapubic Cath.,07-28-17 .,egd w/ stomach bx, back pain injections, spinal stimulator, PICCs, lt subclavian port a cath implanted on 01-13-18 Past Anesthesia/Blood Transfusion Reactions: No Reported Reaction Additional Past Anesthesia/Blood Transfusion Reaction / Comment(s): CLAUSTROPHOBIA Past Psychological History: No Psychological Hx Reported Smoking Status: Former smoker Past Alcohol Use History: None Reported Past Drug Use History: None Reported - Past Family History Father Family Medical History: Diabetes Mellitus, Myocardial Infarction ([place]), Osteoarthritis (OA) Additional Family Medical History / Comment(s): Father fell and suffered brain edema and . He had CABG. He at the age of 77yrs Mother Family Medical History: Myocardial Infarction (MA) Additional Family Medical History / Comment(s): Mother of a MA at the age of 70 General Exam Limitations: no limitations General appearance: alert, in no apparent distress Head exam: Present: atraumatic, normocephalic, normal inspection Eye exam: Present: normal appearance, PERRL, EOMI. Absent: scleral icterus, conjunctival injection, periorbital swelling Neck exam: Present: normal inspection Respiratory exam: Present: normal lung sounds bilaterally. Absent: respiratory distress, wheezes, rales, rhonchi, stridor Cardiovascular Exam: Present: regular rate, normal rhythm, normal heart sounds. Absent: systolic murmur, diastolic murmur, rubs, gallop, clicks GI/Abdominal exam: Present: soft. Absent: distended, tenderness, guarding, rebound, rigid Rectal exam: Present: normal inspection, normal rectal tone, heme (+) stool. Absent: fecal impaction, tenderness Neurological exam: Present: alert, oriented X3, CN II-XII intact Psychiatric exam: Present: normal affect, normal mood Skin exam: Present: warm, dry, intact, normal color. Absent: rash Course Vital Signs 04/29/22 14:35 Temperature 98.0 F Pulse Rate 77 Respiratory 20 Rate Blood Pressure 106/75 O2 Sat by Pulse 96 Oximetry Medical Decision Making - Medical Decision Making Patient is a 57-year-old female presenting with chief complaint of rectal bleeding. Bleeding has been ongoing since February. On examination there is no abdominal tenderness. Normal rectal exam. Hemoglobin 10.6, this is consistent with her baseline. Coags are unremarkable. CT of the abdomen and pelvis shows no acute process. Patient is instructed to follow outpatient setting, likely will require colonoscopy. Provided with information for gastroenterology and general surgery. Follow-up with PCP. Report back to ER with any new or worsening symptoms. Discussed return parameters and answered all questions. Patient conveyed verbal understanding and agreed to the plan. I discussed this case in detail with my attending Dr. Hutton - Lab Data Result diagrams: 04/29/22 19:56 04/29/22 19:56 Lab Results 04/29/22 04/29/22 04/29/22 Range/Units 19:56 19:56 19:56 WBC 10.8 H (3.8-10.6) k/uL RBC 4.24 (3.80-5.40) m/uL Hgb 10.6 L (11.4-16.0) gm/dL Hct 34.1 (34.0-46.0) % MCV 80.4 (80.0-100.0) fL MCH 25.1 (25.0-35.0) pg MCHC 31.2 (31.0-37.0) g/dL RDW 17.5 H (11.5-15.5) % Plt Count 278 (150-450) k/uL MPV 8.9 Neutrophils % 80 % Lymphocytes % 12 % Monocytes % 4 % Eosinophils % 2 % Basophils % 1 % Neutrophils # 8.6 H (1.3-7.7) k/uL Lymphocytes # 1.3 (1.0-4.8) k/uL Monocytes # 0.4 (0-1.0) k/uL Eosinophils # 0.2 (0-0.7) k/uL Basophils # 0.1 (0-0.2) k/uL Hypochromasia Marked Anisocytosis Slight Microcytosis Slight ESR 39 H (0-20) mm/hr PT 11.0 (9.0-12.0) sec INR 1.0 (<1.2) APTT 27.3 (22.0-30.0) sec Sodium (137-145) mmol/L Potassium (3.5-5.1) mmol/L Chloride (98-107) mmol/L Carbon Dioxide (22-30) mmol/L Anion Gap mmol/L BUN (7-17) mg/dL Creatinine (0.52-1.04) mg/dL Est GFR (CKD-EPI)AfAm (>60 ml/min/1.73 sqM) Est GFR (CKD-EPI)NonAf (>60 ml/min/1.73 sqM) Glucose (74-99) mg/dL Plasma Lactic Acid Viktor (0.7-2.0) mmol/L Calcium (8.4-10.2) mg/dL Magnesium (1.6-2.3) mg/dL Total Bilirubin (0.2-1.3) mg/dL AST (14-36) U/L ALT (4-34) U/L Alkaline Phosphatase (38-126) U/L Troponin I (0.000-0.034) ng/mL C-Reactive Protein (<1.0) mg/dL Total Protein (6.3-8.2) g/dL Albumin (3.5-5.0) g/dL Stool Occult Blood Positive H (Negative) 04/29/22 04/29/22 04/29/22 Range/Units 19:56 19:56 19:56 WBC (3.8-10.6) k/uL RBC (3.80-5.40) m/uL Hgb (11.4-16.0) gm/dL Hct (34.0-46.0) % MCV (80.0-100.0) fL MCH (25.0-35.0) pg MCHC (31.0-37.0) g/dL RDW (11.5-15.5) % Plt Count (150-450) k/uL MPV Neutrophils % % Lymphocytes % % Monocytes % % Eosinophils % % Basophils % % Neutrophils # (1.3-7.7) k/uL Lymphocytes # (1.0-4.8) k/uL Monocytes # (0-1.0) k/uL Eosinophils # (0-0.7) k/uL Basophils # (0-0.2) k/uL Hypochromasia Anisocytosis Microcytosis ESR (0-20) mm/hr PT (9.0-12.0) sec INR (<1.2) APTT (22.0-30.0) sec Sodium 138 (137-145) mmol/L Potassium 3.8 (3.5-5.1) mmol/L Chloride 105 (98-107) mmol/L Carbon Dioxide 20 L (22-30) mmol/L Anion Gap 13 mmol/L BUN 9 (7-17) mg/dL Creatinine 0.82 (0.52-1.04) mg/dL Est GFR (CKD-EPI)AfAm >90 (>60 ml/min/1.73 sqM) Est GFR (CKD-EPI)NonAf 80 (>60 ml/min/1.73 sqM) Glucose 90 (74-99) mg/dL Plasma Lactic Acid Viktor 1.1 (0.7-2.0) mmol/L Calcium 8.8 (8.4-10.2) mg/dL Magnesium 2.0 (1.6-2.3) mg/dL Total Bilirubin 0.3 (0.2-1.3) mg/dL AST 29 (14-36) U/L ALT 19 (4-34) U/L Alkaline Phosphatase 142 H (38-126) U/L Troponin I <0.012 (0.000-0.034) ng/mL C-Reactive Protein 2.2 H (<1.0) mg/dL Total Protein 7.6 (6.3-8.2) g/dL Albumin 4.3 (3.5-5.0) g/dL Stool Occult Blood (Negative) Disposition Clinical Impression: Rectal bleeding Disposition: HOME SELF-CARE Condition: Fair Instructions (If sedation given, give patient instructions): Gastrointestinal Bleeding (ED) Additional Instructions: Follow-up with PCP. You likely will require a colonoscopy, this can be scheduled through gastroenterology or general surgery. I provided the contact information for both services. Report back to ER with any new or worsening symptoms. Is patient prescribed a controlled substance at d/c from ED?: No Referrals: Keith Bowers MD [Primary Care Provider] - 1-2 days Ling Hampton MD [STAFF PHYSICIAN] - 1-2 days Roland García MD [STAFF PHYSICIAN] - 1-2 days Time of Disposition: 22:16
[2022-04-29 20:55] LABS: Erythrocyte Sedimentation Rate 39 mm/hr (0-20)
--- NOTE | 2022-04-29 21:42 | CT ---
EXAMINATION TYPE: CT abdomen pelvis w con CT DLP: 1248.7 mGycm, Automated exposure control for dose reduction was used. DATE OF EXAM: 04/29/2022 9:30 PM COMPARISON: CT abdomen pelvis most recent from CLINICAL INDICATION:Female, 57 years old with history of rectal bleeding; rectal bleeding. hx cervica l and breast ca TECHNIQUE: Axial CT of the abdomen and pelvis. Sagittal and coronal reformats were created on a [email or web address] workstation. Contrast used:83 mL of Isovue 300 with IV Contrast, Oral contrast used: without Oral Contrast FINDINGS: LOWER CHEST: Unremarkable ABDOMEN LIVER: Unremarkable GALLBLADDER AND BILE DUCTS: Gallbladder is surgically absent with mild intrahepatic and extra hepatic biliary dilatation likely physiologic and a postcholecystectomy change. No evidence of choledocholit hiasis. PANCREAS: Unremarkable. SPLEEN: Unremarkable. ADRENAL GLANDS: Unremarkable. KIDNEYS AND URETERS: No evidence of hydronephrosis or renal calculus. The ureters are unremarkable. PELVIS BLADDER: Suprapubic Laureano catheter in place. REPRODUCTIVE: Uterus is surgically absent. ABDOMEN & PELVIS STOMACH AND BOWEL: No evidence of bowel obstruction. Rectum is grossly unremarkable without abnormali ty identified. PERITONEUM: No evidence of pneumoperitoneum or free fluid. VASCULATURE: No evidence of aortic aneurysm. MUSCULOSKELETAL: No acute osseous abnormalities mild degeneration changes throughout the spine., LYMPH NODES: No gross evidence for lymphadenopathy. SOFT TISSUE/ABDOMINAL WALL: Left posterior back/buttock perihepatic with leads terminating within the upper spine [id number]. Small fat-containing umbilical hernia. IMPRESSION: 1. No evidence of acute process, but rectum is grossly unremarkable. 2. Suprapubic Laureano catheter in place. 3. No evidence of lymphadenopathy to suggest metastatic disease.
--- NOTE | 2022-04-29 21:42 | CT ---
EXAMINATION TYPE: CT abdomen pelvis w con CT DLP: 1248.7 mGycm, Automated exposure control for dose reduction was used. DATE OF EXAM: 04/29/2022 9:30 PM COMPARISON: CT abdomen pelvis most recent from CLINICAL INDICATION:Female, 57 years old with history of rectal bleeding; rectal bleeding. hx cervica l and breast ca TECHNIQUE: Axial CT of the abdomen and pelvis. Sagittal and coronal reformats were created on a [employer] workstation. Contrast used:83 mL of Isovue 300 with IV Contrast, Oral contrast used: without Oral Contrast FINDINGS: LOWER CHEST: Unremarkable ABDOMEN LIVER: Unremarkable GALLBLADDER AND BILE DUCTS: Gallbladder is surgically absent with mild intrahepatic and extra hepatic biliary dilatation likely physiologic and a postcholecystectomy change. No evidence of choledocholit hiasis. PANCREAS: Unremarkable. SPLEEN: Unremarkable. ADRENAL GLANDS: Unremarkable. KIDNEYS AND URETERS: No evidence of hydronephrosis or renal calculus. The ureters are unremarkable. PELVIS BLADDER: Suprapubic Laureano catheter in place. REPRODUCTIVE: Uterus is surgically absent. ABDOMEN & PELVIS STOMACH AND BOWEL: No evidence of bowel obstruction. Rectum is grossly unremarkable without abnormali ty identified. PERITONEUM: No evidence of pneumoperitoneum or free fluid. VASCULATURE: No evidence of aortic aneurysm. MUSCULOSKELETAL: No acute osseous abnormalities mild degeneration changes throughout the spine., LYMPH NODES: No gross evidence for lymphadenopathy. SOFT TISSUE/ABDOMINAL WALL: Left posterior back/buttock perihepatic with leads terminating within the upper spine [id number]. Small fat-containing umbilical hernia. IMPRESSION: 1. No evidence of acute process, but rectum is grossly unremarkable. 2. Suprapubic Laureano catheter in place. 3. No evidence of lymphadenopathy to suggest metastatic disease.
[2022-04-29] MEDS ORDERED: SODIUM CHLORIDE 0.9% 1,000 ML IV ONE (22:05)
[2022-04-29 23:31] VITALS: BP 111/74; PULSE 74; RESP 15
== END 2022-04-29 23:31 | disposition home or self-care (01) ==
LOC: EC 14:26
DX: K62.5 Hemorrhage of anus and rectum (principal); E07.9 Disorder of thyroid, unspecified; I25.2 Old myocardial infarction; Z86.73 Personal history of transient ischemic attack (TIA), and cerebral infarction without residual deficits; Z87.891 Personal history of nicotine dependence; Z79.899 Other long term (current) drug therapy; Z88.8 Allergy status to other drugs, medicaments and biological substances; Z88.6 Allergy status to analgesic agent; Z88.3 Allergy status to other anti-infective agents; Z88.2 Allergy status to sulfonamides
CPT/HCPCS: 36415; 80053; 85652; 83605; 83735; 84484; 85025; 85610; 85730; 86140; 82272; 74177; 99285; 96360; Q9967

== ENCOUNTER 2022-05-06 11:36 | Day surgery (SDC) | payer MEDICARE, OTHER ==
[2022-05-03 15:14] VITALS: BMI 33.7
[2022-05-06 12:13] VITALS: RESP 16; TEMP 97.5
[2022-05-06] MEDS ORDERED: PROPOFOL 10 MG/ML 20 ML VIAL IV ONE (12:59)
--- NOTE | 2022-05-06 13:04 | P.GSHP ---
History of Present Illness H&P Date: 05/06/22 Chief Complaint: GI bleed This a 57-year-old female who's had complaints of GI bleed. Patient presents today for colonoscopy. Past Medical History Past Medical History: Cancer, Heart Failure, COPD, CVA/TIA, Deep Vein Thrombosis (DVT), Hyperlipidemia, Myocardial Infarction ([place]), Neurologic Disorder, Seizure Disorder, Skin Disorder, Thyroid Disorder, Vascular Disorder Additional Past Medical History / Comment(s): having intermittent abd pain with rectal bleeding,Multiple sclerosis, TIA 2003., CVA in 2014 with weakness L arm and paralysis L leg, wheelchair bound (able to stand to transfer)., suprapubic catheter- changed q 2 weeks., R breast cancer with lumpectomy, cervical cancer with surgery/chemo ()., DVT L leg, last seizure w/in the month during sleep, PVD, chronic low back pain, DDD, migraines, fall & concussion in 2018, L proximal humerus/shoulder osteomyelitis., Hx R leg cellulitis, born with heart malformation/defect, hypothyroid., had new strain of COVID in October 2021 and was hospitalized for 3 days. Last Myocardial Infarction Date:: 2004 History of Any Multi-Drug Resistant Organisms: None Reported, MRSA Date of last positivie culture/infection: 06/14/15 MDRO Source:: sputum Past Surgical History: Back Surgery, Bladder Surgery, Breast Surgery, Cho lecystectomy, Heart Catheterization, Hysterectomy, Orthopedic Surgery, Tonsillectomy Additional Past Surgical History / Comment(s): had bladder procedure with botox injections 04-16-22,Open subcutaneous skin/scar tissue release L arm, L upper arm lesion removed, DEVIATED SEPTUM; Rt breast lumpectomy; Rt knee surgery x 4 ARTHROSCOPIES AND ACL RECONSTRUCTION; LAPAROSCOPY, EXC ADHESIONS. Suprapubic Cath.,07-28-17 .,egd w/ stomach bx, back pain injections, spinal stimulator, mult PICC insertions, port a cath Past Anesthesia/Blood Transfusion Reactions: No Reported Reaction Additional Past Anesthesia/Blood Transfusion Reaction / Comment(s): CLAUSTROPHOBIA Smoking Status: Former smoker - Past Family History Father Family Medical History: Diabetes Mellitus, Myocardial Infarction ([place]), Osteoarthritis ([place]) Additional Family Medical History / Comment(s): Father fell and suffered brain edema and . He had CABG. He at the age of 77yrs Mother Family Medical History: Myocardial Infarction ([place]) Additional Family Medical History / Comment(s): Mother of a [place] at the age of 70 Medications and Allergies Home Medications Medication Instructions Recorded Confirmed Type Propranolol HCl [Inderal LA] 160 mg PO HS 03/07/14 05/06/22 History Topiramate [Topamax] 400 mg PO HS 03/07/14 05/06/22 History Levothyroxine Sodium [Synthroid] 100 mcg PO DAILY 07/02/16 05/06/22 History Omeprazole [PriLOSEC] 40 mg PO DAILY 07/07/17 05/06/22 History Rivaroxaban [Xarelto] 20 mg PO DAILY 02/03/18 05/06/22 History Magnesium Oxide [Mag-Ox] 250 mg PO DAILY 04/02/18 05/06/22 History Lacosamide [Vimpat] 150 mg PO BID 11/28/18 05/06/22 History tiZANidine [Zanaflex] 4 mg PO BID tab 06/12/19 05/06/22 Rx Cetirizine HCl [Zyrtec] 10 mg PO DAILY 11/05/20 05/06/22 History Furosemide [Lasix] 40 mg PO DAILY 11/05/20 05/06/22 History Potassium Chloride ER [K-Dur 20] 20 meq PO DAILY 11/05/20 05/06/22 History Temazepam [Restoril] 30 mg PO HS 11/05/20 05/06/22 History Umeclidinium Brm/Vilanterol Tr 1 puff INHALATION RT-DAILY 11/05/20 05/06/22 History [Anoro Ellipta 62.5-25 Mcg INH] Albuterol Inhaler [Ventolin Hfa 2 puff INHALATION RT-QID PRN 03/22/21 05/06/22 History Inhaler] Acetaminophen with Codeine 1 tab PO QID 02/28/22 05/06/22 History [Tylenol #4 Tablet] Mirtazapine [Remeron] 15 mg PO DAILY 02/28/22 05/06/22 History Mirtazapine [Remeron] 30 mg PO HS 03/22/22 05/06/22 History Rosuvastatin [Crestor] 10 mg PO DAILY 04/29/22 05/06/22 History modafiniL [Provigil] 200 mg PO DAILY 04/29/22 05/06/22 History Allergies Allergy/AdvReac Type Severity Reaction Status Date / Time guaifenesin [From Entex LA] Allergy Anaphylaxis Verified 05/06/22 12:12 phenylephrine HCl Allergy Anaphylaxis Verified 05/06/22 12:12 [From Entex LA] phenylpropanolamine HCl Allergy Anaphylaxis Verified 05/06/22 12:12 [From Entex LA] Sulfa (Sulfonamide Allergy Anaphylaxis Verified 05/06/22 12:12 Antibiotics) tuberculin, purified protein Allergy Anaphylaxis Verified 05/06/22 12:12 deriva [Tuberculin,Purif.Prot.Deriv.] silicone AdvReac Unknown silicone Verified 05/06/22 12:12 catheter imbedded in tissue"bad Rx to my body" pseudoephedrine HCl AdvReac Anaphylaxis Verified 05/06/22 12:12 [From Mucinex D] Surgical - Exam Vital Signs Temp Pulse Resp BP Pulse Ox 97.5 F L 72 16 115/67 96 05/06/22 12:11 05/06/22 12:11 05/06/22 12:11 05/06/22 12:11 05/06/22 12:11 - General well developed, well nourished, no distress - Eyes PERRL - ENT normal pinna - Neck no masses - Respiratory normal expansion - Cardiovascular Rhythm: regular - Abdomen Abdomen: soft, non tender Assessment and Plan Assessment: GI bleed. We'll perform colonoscopy.
--- NOTE | 2022-05-06 13:21 | P.OP ---
Date of Procedure: 05/06/22 Preoperative Diagnosis: GI bleed Postoperative Diagnosis: Internal hemorrhoids Mild diverticulosis Transverse colon polyp Procedure(s) Performed: Colonoscopy Anesthesia: MAC Surgeon: Roland García Pathology: other (Transverse colon polyp) Condition: stable Disposition: PACU Description of Procedure: The patient's placed on the endoscopy table in the lateral position. She received IV sedation. Digital rectal exam performed. This revealed internal hemorrhoids. The flexible colonoscope was then placed patient anus and passed throughout the colon. Scope then placed into the right colon secondary to tortuosity the colon. The scope was then brought back and the transverse colon there was a sessile polyp. This removed the cold forcep. In the descending and; there is mild diverticular changes. Scope was then brought back into the rectum and this appeared normal. Scope was withdrawn to anus and internal hemorrhoids are noted. There is no evidence of any significant GI bleed. It is presumed the patient may have had bleeding from hemorrhoids.
[2022-05-06 14:02] VITALS: BP 120/58; PULSE 64
== END 2022-05-06 14:35 | disposition home or self-care (01) ==
LOC: ORWHC2ENDO 11:36
PROVIDERS: ATTEND Surgery
DX: D12.3 Benign neoplasm of transverse colon (principal); K64.8 Other hemorrhoids; K57.30 Diverticulosis of large intestine without perforation or abscess without bleeding; J44.9 Chronic obstructive pulmonary disease, unspecified; E78.5 Hyperlipidemia, unspecified; I25.2 Old myocardial infarction; G40.909 Epilepsy, unspecified, not intractable, without status epilepticus; E07.9 Disorder of thyroid, unspecified; G35 Multiple sclerosis; G43.909 Migraine, unspecified, not intractable, without status migrainosus; Q24.9 Congenital malformation of heart, unspecified; I50.9 Heart failure, unspecified; F40.240 Claustrophobia; Z86.73 Personal history of transient ischemic attack (TIA), and cerebral infarction without residual deficits; Z86.718 Personal history of other venous thrombosis and embolism; Z98.890 Other specified postprocedural states; Z98.82 Breast implant status; Z90.49 Acquired absence of other specified parts of digestive tract; Z95.1 Presence of aortocoronary bypass graft; Z90.710 Acquired absence of both cervix and uterus; Z87.891 Personal history of nicotine dependence; Z83.3 Family history of diabetes mellitus; Z82.49 Family history of ischemic heart disease and other diseases of the circulatory system; Z82.61 Family history of arthritis; Z79.890 Hormone replacement therapy; Z79.899 Other long term (current) drug therapy; Z79.51 Long term (current) use of inhaled steroids; Z88.1 Allergy status to other antibiotic agents; Z88.2 Allergy status to sulfonamides; Z88.6 Allergy status to analgesic agent; Z88.7 Allergy status to serum and vaccine; Z91.040 Latex allergy status; Z88.8 Allergy status to other drugs, medicaments and biological substances
CPT/HCPCS: 88305; 45380; J2704

== ENCOUNTER 2022-09-25 13:29 | Day surgery (SDC) | payer MEDICARE, OTHER ==
--- NOTE | 2022-09-25 11:31 | P.GSHP ---
History of Present Illness H&P Date: 09/25/22 Chief Complaint: History of multiple sclerosis This a 57-year-old female with previous history of multiple sclerosis. Patient requires Port-A-Cath for IV infusion therapy. Her current Port-A-Cath has no function. She presents today for removal of Port-A-Cath and replacement of Port-A-Cath Past Medical History Past Medical History: Cancer, Heart Failure, COPD, CVA/TIA, Deep Vein Thrombosis (DVT), Hyperlipidemia, Myocardial Infarction ([place]), Neurologic Disorder, Seizure Disorder, Skin Disorder, Thyroid Disorder, Vascular Disorder Additional Past Medical History / Comment(s): having intermittent abd pain with rectal bleeding,Multiple sclerosis, TIA 2003., CVA in 2014 with weakness L arm and paralysis L leg, wheelchair bound (able to stand to transfer)., suprapubic catheter- changed q 2 weeks., R breast cancer with lumpectomy, cervical cancer with surgery/chemo (1997/1998)., DVT L leg, last seizure 6 mos agoPVD, chronic low back pain, DDD, migraines, fall & concussion in 2019, L proximal humerus/ shoulder osteomyelitis., Hx R leg cellulitis, born with heart malformation/defect, hypothyroid., had new strain of COVID in October 2021 and was hospitalized for 3 days. Last Myocardial Infarction Date:: 2004 History of Any Multi-Drug Resistant Organisms: MRSA Date of last positivie culture/infection: 06/14/15 MDRO Source:: sputum Past Surgical History: Back Surgery, Bladder Surgery, Breast Surgery, Cholecystectomy, Heart Catheterization, Hysterectomy, Orthopedic Surgery, Tonsillectomy Additional Past Surgical History / Comment(s): had bladder procedure with botox injections 04-16-22,Open subcutaneous skin/scar tissue release L arm, L upper arm lesion removed, DEVIATED SEPTUM; Rt breast lumpectomy; Rt knee surgery x 4 ARTHROSCOPIES AND ACL RECONSTRUCTION; LAPAROSCOPY, EXC ADHESIONS. Suprapubic Cath.,07-28-17 .,egd w/ stomach bx, back pain injections, spinal stimulator, mult PICC insertions, port a cath Past Anesthesia/Blood Transfusion Reactions: No Reported Reaction Additional Past Anesthesia/Blood Transfusion Reaction / Comment(s): CLAUSTROPHOBIA Smoking Status: Former smoker - Past Family History Father Family Medical History: Diabetes Mellitus, Myocardial Infarction ([place]), Osteoarthritis ([place]) Additional Family Medical History / Comment(s): Father fell and suffered brain edema and . He had CABG. He at the age of 77yrs Mother Family Medical History: Myocardial Infarction ([place]) Additional Family Medical History / Comment(s): Mother of a [place] at the age of 70 Medications and Allergies Home Medications Medication Instructions Recorded Confirmed Type Propranolol HCl [Inderal LA] 160 mg PO HS 03/07/14 09/19/22 History Topiramate [Topamax] 400 mg PO HS 03/07/14 09/19/22 History Levothyroxine Sodium [Synthroid] 100 mcg PO DAILY 07/02/16 09/19/22 History Omeprazole [PriLOSEC] 40 mg PO DAILY 07/07/17 09/19/22 History Rivaroxaban [Xarelto] 20 mg PO DAILY 02/03/18 09/19/22 History Magnesium Oxide [Mag-Ox] 250 mg PO DAILY 04/02/18 09/19/22 History Lacosamide [Vimpat] 150 mg PO BID 11/28/18 09/19/22 History tiZANidine [Zanaflex] 4 mg PO BID tab 06/12/19 09/19/22 Rx Cetirizine HCl [Zyrtec] 10 mg PO DAILY 11/05/20 09/19/22 History Furosemide [Lasix] 40 mg PO DAILY 11/05/20 09/19/22 History Potassium Chloride ER [K-Dur 20] 20 meq PO DAILY 11/05/20 09/19/22 History Temazepam [Restoril] 30 mg PO HS 11/05/20 09/19/22 History Umeclidinium Brm/Vilanterol Tr 1 puff INHALATION RT-DAILY 11/05/20 09/19/22 History [Anoro Ellipta 62.5-25 Mcg INH] Albuterol Inhaler [Ventolin Hfa 2 puff INHALATION RT-QID PRN 03/22/21 09/19/22 History Inhaler] Acetaminophen with Codeine 1 tab PO QID 02/28/22 09/19/22 History [Tylenol #4 Tablet] Mirtazapine [Remeron] 15 mg PO DAILY 02/28/22 09/19/22 History Mirtazapine [Remeron] 30 mg PO HS 03/22/22 09/19/22 History Rosuvastatin [Crestor] 10 mg PO DAILY 04/29/22 09/19/22 History modafiniL [Provigil] 200 mg PO DAILY 04/29/22 09/19/22 History Allergies Allergy/AdvReac Type Severity Reaction Status Date / Time guaifenesin [From Entex LA] Allergy Anaphylaxis Verified 09/19/22 11:09 phenylephrine HCl Allergy Anaphylaxis Verified 09/19/22 11:09 [From Entex LA] phenylpropanolamine HCl Allergy Anaphylaxis Verified 09/19/22 11:09 [From Entex LA] Sulfa (Sulfonamide Allergy Anaphylaxis Verified 09/19/22 11:09 Antibiotics) tuberculin, purified protein Allergy Anaphylaxis Verified 09/19/22 11:09 deriva [Tuberculin,Purif.Prot.Deriv.] silicone AdvReac Unknown silicone Verified 09/19/22 11:09 catheter imbedded in tissue"bad Rx to my body" pseudoephedrine HCl AdvReac Anaphylaxis Verified 09/19/22 11:09 [From Mucinex D] Surgical - Exam - General well developed, well nourished, no distress - Eyes PERRL - ENT normal pinna - Neck no masses - Respiratory normal expansion - Cardiovascular Rhythm: regular - Abdomen Abdomen: soft, non tender Assessment and Plan Assessment: History of multiple cirrhosis. We'll perform a Port-A-Cath insertion for IV infusion therapy.
[~2022-09-25 13:29] MED LIST changes: +ACETAMINOPHEN TAB 500 MG TAB PO PRN; +HEPARIN SODIUM,PORCINE/PF 5,000 UNIT/0.5 ML SYRINGE SQ PRN; -LACTATED RINGERS 1,000 ML IV SCH; +LIDOCAINE 1% (10MG/ML) FOR IV START INTRADERMA PRN; +ONDANSETRON 4 MG/2 ML VIAL IVP PRN; +Pre Op ABX Message 1 EACH MISC MISCELLANE ONE; +fentaNYL (PF) 50 MCG/ML 2 ML AMP IV PRN
[2022-09-25] MEDS: LACTATED RINGERS 1,000 ML IV SCH ×2 (13:37→13:52)
[2022-09-25 13:50] VITALS: TEMP 96.8
[2022-09-25] MEDS ORDERED: LIDOCAINE 1% (10MG/ML) FOR IV START INTRADERMA ONE (13:53)
[2022-09-25] MEDS ORDERED: KETAMINE 10 MG/ML 20 ML VIAL ONE (14:21)
[2022-09-25] MEDS ORDERED: fentaNYL (PF) 50 MCG/ML 2 ML AMP ONE (14:21)
[2022-09-25] MEDS ORDERED: KETOROLAC 15 MG/ML 1 ML VIAL ONE (14:21)
[2022-09-25] MEDS ORDERED: MIDAZOLAM 2 MG/2 ML VIAL ONE (14:21)
[2022-09-25] MEDS ORDERED: PROPOFOL 10 MG/ML 20 ML VIAL IV ONE (14:21)
[2022-09-25] MEDS ORDERED: SODIUM CHLORIDE 0.9% 50 ML with ceFAZolin 2,000 MG IV ONE ×2 (14:23)
[2022-09-25] MEDS ORDERED: HEPARIN SODIUM,PORCINE 100 UNIT/ML 5 ML VIAL IV ONE (14:41)
[2022-09-25] MEDS ORDERED: BUPIVACAIN-EPI 0.25%-1:200,000 30 ML VIAL SQ ONE ×2 (14:41)
--- NOTE | 2022-09-25 15:15 | FL ---
EXAMINATION TYPE: FL guided central line placemt DATE OF EXAM: 09/25/2022 CLINICAL HISTORY: Port-A-Cath insertion TECHNIQUE: Fluoroscopy. COMPARISON: None. FINDINGS: Fluoroscopic guidance was provided during Port-A-Cath insertion procedure performed by Dr. García. A total of 6 seconds of fluoroscopic time was utilized during the procedure and 3 spot im ages was acquired. Images show portion of left subclavian central venous catheter. Total DAP [id number]. IMPRESSION: As Above.
--- NOTE | 2022-09-25 15:27 | P.OP ---
Date of Procedure: 09/25/22 Preoperative Diagnosis: Multiple sclerosis Postoperative Diagnosis: Multiple sclerosis Procedure(s) Performed: Removal of left subclavian Port-A-Cath Replacement of left subclavian Port-A-Cath Anesthesia: TINO Surgeon: Roland García Estimated Blood Loss (ml): 5 Pathology: none sent Condition: stable Disposition: PACU Description of Procedure: The patient was placed on the operating table in the supine position. The patient received IV sedation. The patient's chest was prepped and draped in the usual sterile fashion. A roll had been placed between the shoulder blades in a longitudinal fashion. After prepping and draping the skin was anesthetized 1% local Xylocaine. The skin was incised over the Port-A-Cath after adequate anesthesia. Using blunt dissection with cautery the Port-A-Cath and catheter removed. And then using the Seldinger technique the subclavian vein was cannulated. A wire was placed into the vein and fluoroscopy position the wire at the atrial caval junction. Next the dilator sheath was placed over top the wire and the wire was withdrawn. The catheter was positioned at the atriocaval position. The catheter was placed through the sheath after the dilator was withdrawn. The sheath was then withdrawn. Position of the catheter was confirmed with fluoroscopy. The Port-A-Cath was connected to the catheter. The Port-A-Cath was flushed with saline and then heparinized saline. The skin was closed interrupted 3-0 Monocryl suture. Dermabond was applied. Patient tolerated procedure well and was sent to recovery room stable condition.
[2022-09-25 15:46] VITALS: BP 111/74; PULSE 82; RESP 17
--- NOTE | 2022-09-25 15:48 | XR ---
EXAMINATION TYPE: XR chest 1V portable DATE OF EXAM: 09/25/2022 COMPARISON: Chest x-ray March 22, 2022 HISTORY: Mediport catheter insertion TECHNIQUE: Single AP portable frontal upright view of the chest is obtained. FINDINGS: There is left subclavian Mediport catheter terminating in SVC. No pneumothorax seen after catheter insertion. Persistent low lung volumes and small left pleural effusion with associated left basilar atelectasis and/or infiltrate. Right lung remains clear. The cardiac silhouette size is sta ble and within normal limits. Spinal stimulator device in the lower thoracic spinal canal is redemons trated. Cholecystectomy clips are redemonstrated. Surgical change to the left proximal humerus is red emonstrated. IMPRESSION: As above.
== END 2022-09-25 16:30 | disposition home or self-care (01) ==
LOC: OR 13:29
PROVIDERS: ATTEND Surgery
DX: G35 Multiple sclerosis (principal); J44.9 Chronic obstructive pulmonary disease, unspecified; E78.5 Hyperlipidemia, unspecified; I25.2 Old myocardial infarction; E07.9 Disorder of thyroid, unspecified; F40.240 Claustrophobia; G40.909 Epilepsy, unspecified, not intractable, without status epilepticus; Z82.49 Family history of ischemic heart disease and other diseases of the circulatory system; Z86.718 Personal history of other venous thrombosis and embolism; Z86.73 Personal history of transient ischemic attack (TIA), and cerebral infarction without residual deficits; Z99.3 Dependence on wheelchair; Z85.41 Personal history of malignant neoplasm of cervix uteri; Z85.3 Personal history of malignant neoplasm of breast; Z86.16 Personal history of COVID-19; Z98.82 Breast implant status; Z90.49 Acquired absence of other specified parts of digestive tract; Z95.5 Presence of coronary angioplasty implant and graft; Z90.710 Acquired absence of both cervix and uterus; Z90.89 Acquired absence of other organs; Z87.891 Personal history of nicotine dependence; Z83.3 Family history of diabetes mellitus; Z82.61 Family history of arthritis; Z79.01 Long term (current) use of anticoagulants; Z79.899 Other long term (current) drug therapy; Z79.51 Long term (current) use of inhaled steroids; Z88.8 Allergy status to other drugs, medicaments and biological substances; Z88.2 Allergy status to sulfonamides
CPT/HCPCS: 77001; 71045; 36582; J1642; J2405; J0690; J1644

== ENCOUNTER → 2022-10-28 | Day surgery (SDC) | payer MEDICARE, OTHER ==
[2022-10-23 10:27] VITALS: BMI 32.8
[~2022-10-28] MED LIST changes: -ACETAMINOPHEN TAB 500 MG TAB PO PRN; -HEPARIN SODIUM,PORCINE/PF 5,000 UNIT/0.5 ML SYRINGE SQ PRN; +LACTATED RINGERS 1,000 ML IV SCH; -LIDOCAINE 1% (10MG/ML) FOR IV START INTRADERMA PRN; -ONDANSETRON 4 MG/2 ML VIAL IVP PRN; +PROPOFOL 10 MG/ML 20 ML VIAL IV ONE; -Pre Op ABX Message 1 EACH MISC MISCELLANE ONE; -fentaNYL (PF) 50 MCG/ML 2 ML AMP IV PRN
[2022-10-28 12:52] VITALS: TEMP 97.2
--- NOTE | 2022-10-28 14:07 | P.OP ---
Date of Procedure: 10/28/22 Preoperative Diagnosis: Dysphagia Postoperative Diagnosis: Gastritis Procedure(s) Performed: EGD Anesthesia: MAC Surgeon: Roland García Pathology: other (Antrum, esophagus) Condition: stable Disposition: PACU Description of Procedure: The patient's placed on the endoscopy table in the lateral position. She received IV sedation. The gastroscope placed oropharynx passed in the esophagus into the stomach. Scope was placed through the pylorus. The first and second portion of duodenum appeared normal. Scope summer back the antrum this was mildly inflamed a biopsy was performed. Scope brought back stomach. In the mid body the stomach there is more information seen. This was biopsied forcep. S cope was unretroflexed and remainder the stomach appeared normal. The GE junction was at 40 cm. The distal esophagus appeared normal. The proximal esophagus. Minimal inflamed. A biopsies performed. The proximal the scope was withdrawn for patient.
[2022-10-28 14:08] VITALS: BP 105/68; RESP 16
[2022-10-28 14:24] VITALS: PULSE 57
== END ==
LOC: ORWHC2ENDO 11:47
PROVIDERS: ATTEND Surgery
DX: K29.50 Unspecified chronic gastritis without bleeding (principal); K21.00 Gastro-esophageal reflux disease with esophagitis, without bleeding; I25.2 Old myocardial infarction; I11.0 Hypertensive heart disease with heart failure; I50.9 Heart failure, unspecified; E78.5 Hyperlipidemia, unspecified; E03.9 Hypothyroidism, unspecified; G35 Multiple sclerosis; Z86.73 Personal history of transient ischemic attack (TIA), and cerebral infarction without residual deficits; Z85.3 Personal history of malignant neoplasm of breast; Z79.01 Long term (current) use of anticoagulants; Z79.899 Other long term (current) drug therapy; Z79.890 Hormone replacement therapy; Z88.8 Allergy status to other drugs, medicaments and biological substances; Z88.2 Allergy status to sulfonamides; Z91.048 Other nonmedicinal substance allergy status
CPT/HCPCS: 88305; 43239; J2704

== ENCOUNTER 2023-06-15 16:18 | Emergency (ER) | payer MEDICARE, OTHER ==
[2023-06-15 17:09] VITALS: RESP 18
[2023-06-15] MEDS ORDERED: IBUPROFEN 600 MG TAB PO STA (17:15)
[2023-06-15] MEDS ORDERED: AMOXIC-POT CLAV 875-125MG 1 EACH TAB PO STA (17:15)
--- NOTE | 2023-06-15 17:15 | ED ---
ENT HPI - General Chief complaint: Dental/Oral Stated complaint: Facial swelling,dental Time Seen by Provider: 06/15/23 17:01 Source: patient Mode of arrival: wheelchair Limitations: no limitations - History of Present Illness Initial comments: 58-year-old female presenting with chief complaint of left-sided lower jaw pain and swelling. Symptoms started today. Patient has history of severe dental decay and gingivitis. No difficulty breathing or swallowing. No drooling or voice changes. No fevers or chills. - Related Data Home Medications Medication Instructions Recorded Confirmed Propranolol HCl [Inderal LA] 160 mg PO HS 03/07/14 10/28/22 Topiramate [Topamax] 400 mg PO HS 03/07/14 10/28/22 Levothyroxine Sodium [Synthroid] 100 mcg PO DAILY 07/02/16 10/28/22 Omeprazole [PriLOSEC] 40 mg PO DAILY 07/07/17 10/28/22 Rivaroxaban [Xarelto] 20 mg PO DAILY 02/03/18 10/28/22 Magnesium Oxide [Mag-Ox] 250 mg PO DAILY 04/02/18 10/28/22 Lacosamide [Vimpat] 150 mg PO BID 11/28/18 10/28/22 Cetirizine HCl [Zyrtec] 10 mg PO DAILY 11/05/20 10/28/22 Furosemide [Lasix] 40 mg PO DAILY 11/05/20 10/28/22 Potassium Chloride ER [K-Dur 20] 20 meq PO DAILY 11/05/20 10/28/22 Temazepam [Restoril] 30 mg PO HS 11/05/20 10/28/22 Umeclidinium Brm/Vilanterol Tr 1 puff INHALATION RT-DAILY 11/05/20 10/28/22 [Anoro Ellipta 62.5-25 Mcg INH] Albuterol Inhaler [Ventolin Hfa 2 puff INHALATION RT-QID PRN 03/22/21 10/28/22 Inhaler] Acetaminophen with Codeine 1 tab PO QID 02/28/22 10/28/22 [Tylenol #4 Tablet] Mirtazapine [Remeron] 15 mg PO DAILY 02/28/22 10/28/22 Mirtazapine [Remeron] 30 mg PO HS 03/22/22 10/28/22 Rosuvastatin [Crestor] 10 mg PO DAILY 04/29/22 10/28/22 modafiniL [Provigil] 200 mg PO DAILY 04/29/22 10/28/22 Previous Rx's Medication Instructions Recorded tiZANidine [Zanaflex] 4 mg PO BID tab 06/12/19 Amoxic-Pot Clav 875-125Mg 1 tab PO Q12HR 7 Days #14 tab 06/15/23 [Augmentin 875-125] Allergies Allergy/AdvReac Type Severity Reaction Status Date / Time guaifenesin [From Entex LA] Allergy Anaphylaxis Verified 06/15/23 16:55 phenylephrine HCl Allergy Anaphylaxis Verified 06/15/23 16:55 [From Entex LA] phenylpropanolamine HCl Allergy Anaphylaxis Verified 06/15/23 16:55 [From Entex LA] Sulfa (Sulfonamide Allergy Anaphylaxis Verified 06/15/23 16:55 Antibiotics) tuberculin, purified protein Allergy Anaphylaxis Verified 06/15/23 16:55 deriva [Tuberculin,Purif.Prot.Deriv.] silicone AdvReac Unknown silicone Verified 06/15/23 16:55 catheter imbedded in tissue"bad Rx to my body" pseudoephedrine HCl AdvReac Anaphylaxis Verified 06/15/23 16:55 [From Mucinex D] Review of Systems ROS Statement: Those systems with pertinent positive or pertinent negative responses have been documented in the HPI. ROS Other: All systems not noted in ROS Statement are negative. Past Medical History Past Medical History: Cancer, Heart Failure, COPD, CVA/TIA, Deep Vein Thrombosis (DVT), Hyperlipidemia, Myocardial Infarction (DC), Neurologic Disorder, Seizure Disorder, Skin Disorder, Thyroid Disorder, Vascular Disorder Additional Past Medical History / Comment(s): Hx Covid 09/27/22. Intermittent abdominal pain with rectal bleeding. Multiple Sclerosis, hx TIA 2003, hx CVA 2014 with left arm weakness and left leg paralysis, wheelchair bound (able to stand to transfer). Has suprapubic catheter - changed q2 weeks. Hx right breast cancer with lumpectomy, cervical cancer with surgery/chemo (). Hx DVT left leg. Last seizure 6 mos ago. PVD. Chronic low back pain, DDD, migraines, fall & concussion in 2019, L proximal humerus/shoulder osteomyelitis, hx right leg cellulitis, born with heart malformation/defect, hypothyroid. Had new strain of COVID in October 2021 and was hospitalized for 3 days. Last Myocardial Infarction Date:: 2004 History of Any Multi-Drug Resistant Organisms: MRSA Date of last positivie culture/infection: 06/14/15 MDRO Source:: sputum Past Surgical History: Back Surgery, Bladder Surgery, Breast Surgery, Cholecystectomy, Heart Catheterization, Hysterectomy, Orthopedic Surgery, Tonsillectomy Additional Past Surgical History / Comment(s): Bladder procedure with botox injections 04-16-22, open subcutaneous skin/scar tissue release left arm, left upper arm lesion removed, DEVIATED SEPTUM, right breast lumpectomy, right knee surgery X4 - ARTHROSCOPIES AND ACL RECONSTRUCTION, LAPAROSCOPY, EXCISION OF ADHESIONS, suprapubic catheter, EGD with stomach biopsy, back pain injections, spinal stimulator, multiple PICC line insertions, port a catheter placement, removal and replacement. Past Anesthesia/Blood Transfusion Reactions: No Reported Reaction Additional Past Anesthesia/Blood Transfusion Reaction / Comment(s): CLAUSTROPHOBIA. Past Psychological History: No Psychological Hx Reported Smoking Status: Former smoker Past Alcohol Use History: None Reported Past Drug Use History: Marijuana - Past Family History Father Family Medical History: Diabetes Mellitus, Myocardial Infarction (DC), Osteoarthritis (OA) Additional Family Medical History / Comment(s): Father fell and suffered brain edema and . He had CABG. He at the age of 77yrs. Mother Family Medical History: Myocardial Infarction (DC) Additional Family Medical History / Comment(s): Mother of a DC at the age of 70. General Exam Limitations: no limitations General appearance: alert, in no apparent distress Head exam: Present: atraumatic, normocephalic, normal inspection Eye exam: Present: normal appearance, EOMI ENT exam: Present: mucous membranes moist Expanded Mouth exam: Present: tongue normal. Absent: drooling, trismus, muffled voice Teeth exam: Present: dental caries (Severe dental decay to the entire bottom row of teeth) Throat exam: normal inspection Neck exam: Present: normal inspection, full ROM, other (No brawny induration) Respiratory exam: Absent: respiratory distress Neurological exam: Present: alert, oriented X3 Psychiatric exam: Present: normal affect, normal mood Skin exam: Present: warm, dry, intact, normal color. Absent: rash Course Vital Signs 06/15/23 06/15/23 16:52 17:20 Temperature 99.4 F 99.2 F Pulse Rate 66 73 Respiratory 18 18 Rate Blood Pressure 124/84 124/78 O2 Sat by Pulse 95 94 L Oximetry Medical Decision Making - Medical Decision Making Was pt. sent in by a medical professional or institution (, [facility], [facility] [employer] [facility], urgent care, hospital, or assisted...) When possible be specific @ -No Did you speak to anyone other than the patient for history (EMS, parent, family, police, friend...)? What history was obtained from this source @ -No Did you review nursing and triage notes (agree or disagree)? Why? @ -I reviewed and agree with nursing and triage notes Were old charts reviewed (outside hosp., previous admission, EMS record, old EKG, old radiological studies, urgent care reports/EKG's, assisted records)? Report findings @ -No old charts were reviewed Differential Diagnosis (chest pain, altered mental status, abdominal pain women, abdominal pain men, vaginal bleeding, weakness, fever, dyspnea, syncope, headache, dizziness, GI bleed, back pain, seizure, CVA, palpatations, mental health, musculoskeletal)? @ -Differential includes dental abscess, cellulitis, ALLERGIC reaction, Justin's angina, this was not an all-inclusive list EKG interpreted by me (3pts min.). @ -As above X-rays interpreted by me (1pt min.). @ -None done CT interpreted by me (1pt min.). @ -None done U/S interpreted by me (1pt. min.). @ -None done What testing was considered but not performed or refused? (CT, X-rays, U/S, labs)? Why? @ -None What meds were considered but not given or refused? Why? @ -None Did you discuss the management of the patient with other professionals (susan flores i.e. [facility] Rodriguez, [employer], lab, RT, psych nurse, social services technician, custodial worker, teacher, textile technical officer, catalytic case operator)? Give summary @ -No Was smoking cessation discussed for >3mins.? @ -No Was critical care preformed (if so, how long)? @ -No Were there social determinants of health that impacted care today? How? (Homelessness, low income, unemployed, alcoholism, drug addiction, transportation, low edu. Level, literacy, decrease access to med. care, long term, rehab)? @ -No Was there de-escalation of care discussed even if they declined (Discuss DNR or withdrawal of care, Hospice)? DNR status @ -No What co-morbidities impacted this encounter? (DM, HTN, Smoking, COPD, CAD, Cancer, CVA, ARF, Chemo, Hep., AIDS, mental health diagnosis, sleep apnea, morbid obesity)? @ -None Was patient admitted / discharged? Hospital course, mention meds given and route, prescriptions, significant lab abnormalities, going to OR and other pertinent info. @ -58-year-old female presenting with chief complaint of left sided lower jaw tenderness and swelling that started today. Patient has history of severe dental decay to the bottom row of teeth. On physical examination there is some tenderness and swelling, no brawny induration. No drooling or voice changes. No difficulty breathing or swallowing. Patient will be treated with Augmentin. Follow-up with PCP. Report back to ER with any new or worsening symptoms. Discussed return parameters and answered all questions. Patient conveyed verbal understanding and agreed to the plan. I discussed this case in detail with my attending Dr. Flor Undiagnosed new problem with uncertain prognosis? @ -No Drug Therapy requiring intensive monitoring for toxicity (Heparin, Nitro, Insulin, Cardizem)? @ -No Were any procedures done? @ -No Diagnosis/symptom? @ -Dental abscess Acute, or Chronic, or Acute on Chronic? @ -Acute Uncomplicated (without systemic symptoms) or Complicated (systemic symptoms)? @ -Uncomplicated Side effects of treatment? @ -No Exacerbation, Progression, or Severe Exacerbation? @ -No Poses a threat to life or bodily function? How? (Chest pain, USA, DC, pneumonia, PE, COPD, DKA, ARF, appy, cholecystitis, CVA, Diverticulitis, Homicidal, Suicidal, threat to staff... and all critical care pts) @ -No Disposition Clinical Impression: Dental abscess, Gingivitis Disposition: HOME SELF-CARE Condition: Good Instructions (If sedation given, give patient instructions): Dental Abscess (ED) Additional Instructions: Follow-up with dentist. Report back to ER with any new or worsening symptoms. Take medication as prescribed. Please follow up with the [facility] dental clinic. [address] [place] [address]. Phone number for new patients or [phone] for existing patients. Prescriptions: Amoxic-Pot Clav 875-125Mg [Augmentin 875-125] 1 tab PO Q12HR 7 Days #14 tab Is patient prescribed a controlled substance at d/c from ED?: No Referrals: Keith Bowers MD [Primary Care Provider] - 1-2 days Time of Disposition: 17:15
[2023-06-15 18:14] VITALS: BP 124/78; PULSE 73; TEMP 99.2
== END 2023-06-15 18:00 | disposition home or self-care (01) ==
LOC: EC 16:18
DX: K05.10 Chronic gingivitis, plaque induced (principal); I50.9 Heart failure, unspecified; J44.9 Chronic obstructive pulmonary disease, unspecified; I21.9 Acute myocardial infarction, unspecified; E78.5 Hyperlipidemia, unspecified; E07.9 Disorder of thyroid, unspecified; F12.90 Cannabis use, unspecified, uncomplicated; Z79.890 Hormone replacement therapy; Z79.899 Other long term (current) drug therapy; Z87.891 Personal history of nicotine dependence; Z88.2 Allergy status to sulfonamides; Z88.8 Allergy status to other drugs, medicaments and biological substances
CPT/HCPCS: 99284

== ENCOUNTER 2024-01-07 08:27 | Day surgery (SDC) | payer MEDICARE, OTHER ==
[2024-01-02 13:06] VITALS: BMI 32.1
[~2024-01-07 08:27] MED LIST changes: -LACTATED RINGERS 1,000 ML IV SCH; +LIDOCAINE 1% (10MG/ML) FOR IV START INTRADERMA PRN; -PROPOFOL 10 MG/ML 20 ML VIAL IV ONE; +Pre Op ABX Message 1 EACH MISC MISCELLANE ONE; +droPERidol 5 MG/2 ML VIAL IVP ONE; +fentaNYL (PF) 50 MCG/ML 2 ML AMP IV PRN
[2024-01-07 10:21] VITALS: RESP 16; TEMP 97
[2024-01-07] MEDS: LACTATED RINGERS 1,000 ML IV SCH (10:30)
[2024-01-07] MEDS: IV FLUID CONTINUATION 1,000 ML IV ONE ×2 (10:30→11:37)
[2024-01-07] MEDS: ACETAMINOPHEN TAB 500 MG TAB PO PRN (10:41)
[2024-01-07] MEDS: HEPARIN SODIUM,PORCINE 5,000 UNIT/ML 1 ML VIAL SQ PRN (10:42)
[2024-01-07] MEDS: DEXAMETHASONE SOD PHOSPHATE 4 MG/ML 1 ML VIAL IV ONE (10:42)
[2024-01-07] MEDS: ONDANSETRON 4 MG/2 ML VIAL IVP ONE (10:42)
[2024-01-07] MEDS ORDERED: ceFAZolin 1 GM/50 ML BAG (PMX) ONE (10:54)
[2024-01-07] MEDS ORDERED: PROPOFOL 10 MG/ML 20 ML VIAL IV ONE (10:54)
[2024-01-07] MEDS ORDERED: MIDAZOLAM 2 MG/2 ML VIAL ONE (10:54)
[2024-01-07] MEDS ORDERED: fentaNYL (PF) 50 MCG/ML 2 ML AMP ONE (10:54)
[2024-01-07] MEDS ORDERED: LIDOCAINE 1% INJ 10MG/ML (20 ML MDV) ONE (10:54)
[2024-01-07] MEDS: LIDOCAINE 1%-EPI 1:100,000 20 ML VIAL SQ ONE ×2 (11:19)
--- NOTE | 2024-01-07 11:36 | P.OP ---
Date of Procedure: 01/07/24 Preoperative Diagnosis: multiple sclerosis Port-A-Cath malfunction Postoperative Diagnosis: same Procedure(s) Performed: repositioning of Port-A-Cath Anesthesia: TINO Surgeon: Roland García Pathology: none sent Condition: stable Disposition: PACU Description of Procedure: the patient's placed on the operative table in the supine position. She received IV sedation. Her chest was prepped and draped usual sterile fashion. The skin iwas anesthetized 1 pill local Xylocaine. The skin was incised over the upper Port-A-Cath site. Using blunt dissection the Port-A-Cath about the wound. The Port-A-Cath was accessed with a Hobson needle. The Port-A-Cath was easily flushed with saline. It was thought that perhaps there was a kink in the tubing. The Port-A-Cath functioning. The tubing was straightened. The Port-A-Cath was repositioned into a new pocket. Fluoroscopy confirmed the tip of the catheter in the atrial caval junction. The Port-A-Cath was then flushed with saline and then Hep-Lock solution. The skin was then closed interrupted 3- 0 Monocryl suture. Dermabond dressing applied. Patient top she will. She will she was sent to recovery room in stable condition.
--- NOTE | 2024-01-07 12:05 | XR ---
EXAMINATION TYPE: XR chest 1V portable DATE OF EXAM: 01/07/2024 Comparison: 09/25/2022 Clinical History: 58-year-old female left subclavian Port-A-Cath Findings: Left anterior chest wall injection port with subclavian access and catheter tip at the mid SVC level. Spinal stimulator ray centered along the mid to lower thoracic spinal canal. Ongoing blunting of the left costophrenic angle and mild interstitial prominence. Lung volumes are low partially obscured an d the heart margins. Cemented left shoulder arthroplasty demonstrated. No appreciable pneumothorax. Impression: 1. Left anterior chest wall injection port with subclavian access and catheter tip at the mid SVC lev el. The port has been turned clockwise 90 degrees. 2. Hypoventilatory changes. Possible continued trace left pleural effusion.
--- NOTE | 2024-01-07 12:08 | FL ---
EXAMINATION TYPE: FL guided central line placemt Intraoperative/procedural fluoroscopic services were provided. Total fluoroscopy time is 3.6 seconds with a total of 2 submitted images to PACS. Please s ee the operative/procedural note for further details. DAP: 0.1642 Gycm2
[2024-01-07 12:23] VITALS: BP 108/72; PULSE 54
== END 2024-01-07 12:54 | disposition home or self-care (01) ==
LOC: OR 08:27
PROVIDERS: ATTEND Surgery
DX: Z45.2 Encounter for adjustment and management of vascular access device (principal); G35 Multiple sclerosis; E78.5 Hyperlipidemia, unspecified; J44.9 Chronic obstructive pulmonary disease, unspecified; E07.9 Disorder of thyroid, unspecified; Z86.718 Personal history of other venous thrombosis and embolism; G40.909 Epilepsy, unspecified, not intractable, without status epilepticus; Z86.73 Personal history of transient ischemic attack (TIA), and cerebral infarction without residual deficits; K21.9 Gastro-esophageal reflux disease without esophagitis; Z87.891 Personal history of nicotine dependence; Z88.2 Allergy status to sulfonamides; Z88.5 Allergy status to narcotic agent; Z88.8 Allergy status to other drugs, medicaments and biological substances; Z88.7 Allergy status to serum and vaccine; Z91.09 Other allergy status, other than to drugs and biological substances; Z79.899 Other long term (current) drug therapy; Z79.890 Hormone replacement therapy
CPT/HCPCS: 77001; 71045; 36597; J2250; J1644; J1100; J2405; J2001; J3010; J1642; J0690; J2704

== ENCOUNTER → 2024-02-24 | Outpatient (CLI) | payer MEDICARE, OTHER ==
--- NOTE | 2024-03-30 12:08 | XR ---
Patient: Oates Jessie, L Ordering Physician: Unknown, Unknown ID: [id number] Phone, Pager: Phone : N/A Pager: N/A : 1965 Age/Gender: 59Y, F Primary Location: N/A Procedure: XR Forearm 2 Views Right Study Date: 02/24/2024 12:51:00 PM EXAMINATION TYPE: XR forearm RT DATE OF EXAM: 03/07/2024 12:22 PM CLINICAL INDICATION: Pain COMPARISON: None TECHNIQUE: XR forearm RT; forearm was examined in AP and lateral projections. FINDINGS: No acute osseous pathology, soft tissue swelling or joint dislocations are seen. IMPRESSION: No evidence of acute fracture.
== END | disposition home or self-care (01) ==
LOC: RADXRMAIN 12:20
PROVIDERS: ATTEND Family Medicine
DX: S50.11XA Contusion of right forearm, initial encounter (principal)

== ENCOUNTER → 2024-09-13 | Outpatient (CLI) | payer MEDICARE, OTHER ==
--- NOTE | 2024-09-13 10:40 | US ---
EXAMINATION TYPE: US kidneys/renal and bladder DATE OF EXAM: 09/13/2024 COMPARISON: CT abdomen and pelvis 04/29/2022 CLINICAL INDICATION: Female, 59 years old with history of N31.9 NEUROMUSCULAR DYSFUNCTION OF BLADDER; Suprapubic cath. Hx MS. Patient scanned in [facility]. TECHNIQUE: Grayscale imaging of the bilateral kidneys and urinary bladder: FINDINGS: EXAM MEASUREMENTS: Right Kidney: 10.3 x 4.6 x 5.0 cm Left Kidney: 10.8 x 4.9 x 6.2 cm Right Kidney: No hydronephrosis or masses seen. Possible dromedary hump. Left Kidney: No hydronephrosis or masses seen Bladder: Cath seen Bilateral Jets not seen due to cath There is no evidence for hydronephrosis at this point in time. No nephrolithiasis is seen. No agatha s are identified. Right renal dromedary hump. Cortical medullary differentiation is maintained bilate rally. The urinary bladder is decompressed with suprapubic catheter in place which limits evaluation. IMPRESSION: 1. No hydronephrosis or nephrolithiasis. 2. Urinary bladder is decompressed from suprapubic catheter which limits evaluation. [facility], , 09/13/2024 10:37 AM
== END | disposition home or self-care (01) ==
LOC: RADUSWWP 10:00
PROVIDERS: ATTEND Student in an Organized Health Care Education/Training Program
DX: T83.098A Other mechanical complication of other urinary catheter, initial encounter (principal); N31.9 Neuromuscular dysfunction of bladder, unspecified
CPT/HCPCS: 76770

== ENCOUNTER → 2025-01-17 | Outpatient (CLI) | payer MEDICARE, OTHER ==
--- NOTE | 2025-01-17 15:05 | BD ---
EXAMINATION TYPE: Axial Bone Density DATE OF EXAM: 01/17/2025 CLINICAL HISTORY: 59 years old Female. ICD-10 CODE: Z78.0ASYMPTOMATIC MENOPAUSAL STA , Additional Hi story: Height: 64 Weight: 195 FRAX RISK QUESTIONS: Family History (Parent hip fracture): unknown History of Fracture in Adulthood: yes Secondary Osteoporosis: 3. Menopause before 45: yes RISK FACTORS HISTORY OF: MEDICATIONS: Thyroid Medications: Which medication: Levothyroxine How Long: about 10 years EXAM MEASUREMENTS: Bone mineral densitometry was performed using the SeroMatch System. Bone mineral density as measured about the Lumbar spine is: ----- L1-L4(G/cm2): 1.482 T Score Values are as follows: ----- L1: 1.4 ----- L2: 3.2 ----- L3: 3.6 ----- L4: 1.7 ----- L1-L4: 2.5 Z Score Values are as follows: ----- L1: 1.8 ----- L2: 3.6 ----- L3: 4.0 ----- L4: 2.1 ----- L1-L4: 2.9 First dexa at [facility] Bone mineral density about the R hip (g/cm2): 0.888 Bone mineral density about the L hip (g/cm2): 0.942 T Score values are as follows: -----R Neck: -1.4 -----L Neck: -1.3 -----R Total: -0.9 -----L Total: -0.5 Z Score values are as follows: -----R Neck: -0.7 -----L Neck: -0.5 -----R Total: -0.6 -----L Total: -0.2 First dexa at [facility] FRAX%s: The graph provided illustrates a 12.7% chance for a major osteoporotic fx and a 1.0% chance f or the hips probability for fx in 10 years time. IMPRESSION: Osteopenia (T Score between -2.5 and -1). There is slightly increased risk of fracture and the patient may be considered for treatment. Re-Screen 2-5 years. NOTE: T-SCORE=SD OF THE YOUNG ADULT MEAN. [facility], , 01/17/2025 3:03 PM
--- NOTE | 2025-01-17 15:05 | MM ---
Reason for Exam: Screening (asymptomatic). Last mammogram was performed 3 year(s) and 9 month(s) ago. Patient History: Menarche at age 15. First Full-Term at age 20. Hysterectomy at age 33. Other cancer, age 29. 04/30/2004, Benign Excisional Biopsy on the right side. Maternal aunt had breast cancer. Sister had breast cancer. Risk Values: Ilene 5 year model risk: 2.4%. NCI Lifetime model risk: 12.7%. Prior Study Comparison: 12/31/2011 Bilateral Diagnostic Mammogram, [facility]. 01/08/2013 Bilateral Screening Mammogram, [facility]. 04/18/2021 Bilateral Screening Mammogram, [facility]. Tissue Density: There are scattered areas of fibroglandular density. Findings: Analyzed By CAD. Some benign-appearing vascular calcification bilaterally is redemonstrated. There is no suspicious group of microcalcifications or new suspicious mass in either breast. Overall Assessment: Negative, BI-RAD 1 Management: Screening Mammogram of both breasts in 1 year. . Patient should continue monthly self-breast exams. A clinical breast exam by your physician is recommended on an annual basis. This exam should not preclude additional follow-up of suspicious palpable abnormalities. Note on Ilene scores and lifetime risk: 1. A Ilene score greater than 3% is considered moderate risk. If this is the case, consider specialist referral to assess eligibility for a risk reducing agent. 2. If overall lifetime risk for the development of breast cancer is 20% or higher, the patient may qualify for future screening with alternating mammogram and breast MRI. [facility], , 01/17/2025 3:02 PM. Electronically signed and approved by: Tex Ramos M.D.
== END | disposition home or self-care (01) ==
LOC: RADMAMWWP 13:59
PROVIDERS: ATTEND Family Medicine
DX: Z12.31 Encounter for screening mammogram for malignant neoplasm of breast (principal); M85.89 Other specified disorders of bone density and structure, multiple sites; R92.323 Mammographic fibroglandular density, bilateral breasts; R92.1 Mammographic calcification found on diagnostic imaging of breast; Z80.3 Family history of malignant neoplasm of breast; Z78.0 Asymptomatic menopausal state
CPT/HCPCS: 77063; 77067; 77080